=== PATIENT | male | born 1945 | race Caucasian/White ===

== ENCOUNTER 2023-01-19 08:25 | Outpatient (OUT) | payer OTHER, MEDICARE, SELFPAY ==
--- NOTE | 2023-01-19 08:29 | CT_ITS ---
[address] [address] Patient Name: DAI GONCALVES MRN: [id number] date: 1945 Sex: M Assigned Patient Location: CT Current Patient Location: Accession/Order Number: [id number] Exam Date: 01/19/2023 08:42 Report Date: 01/20/2023 06:58 At the request of: LIZZY ROCA Procedure: CT lung screening low-dose EXAMINATION: CT lung screening low-dose HISTORY: Nicotine Dependence F17.210 COMPARISON: CT chest 01/12/2022 TECHNIQUE: Axial, Coronal, and Sagittal images were created without the administration of IV contrast material. Dose reduction techniques were achieved by using automated exposure control and/or adjustment of mA and/or kV according to patient size and/or use of iterative reconstruction technique. FINDINGS: LUNGS: Stable scattered benign-appearing tiny nodules within the lungs. No new nodules or infiltrates. Minimal emphysematous changes. PLEURA: No mass, effusion, or pneumothorax. VASCULATURE: No abnormality. HARDIK: No mass or pathologic adenopathy. MEDIASTINUM: No mass or pathologic adenopathy. CARDIAC: No enlargement, pericardial thickening, or significant calcification. AORTA: No aneurysm or dissection. CHEST WALL: No mass or axillary adenopathy BONES: No bone lesion or fracture. LIMITED ABDOMEN: No suspicious findings. Limited images of the upper abdomen. OTHER: Negative. CT/CT lung screening low-dose IMPRESSION: 1. Lung-RADS 2- Benign Appearance or Behavior. Nodules with a very low likelihood of becoming a clinically active cancer due to size or lack of growth. Follow-up CT Chest in 1 year. Electronically authenticated by: CARLOS HOLLOWAY Date: 01/20/2023 06:58
== END 2023-01-19 08:26 | disposition home or self-care (01) ==
LOC: CT 08:25
PROVIDERS: PCP Internal Medicine; Visit Provider Internal Medicine
DX: F17.210 Nicotine dependence, cigarettes, uncomplicated (principal)
CPT/HCPCS: 71271

== ENCOUNTER 2023-10-10 07:03 | Outpatient (OUT) | payer OTHER, MEDICARE, SELFPAY ==
[2023-10-10 07:21] LABS: Basophils Absolute Auto 0.1 10^3/uL (0.0-0.1); Basophils Percent Auto 0.7 % (0.2-2.0); Eosinophils Absolute Auto 0.2 10^3/uL (0.0-0.7); Eosinophils Percent Auto 2.8 % (0.9-7.0); Hematocrit 40.7 % (42.0-54.0); Hemoglobin 13.6 g/dL (14.0-18.0); Immature Granulocytes Abs Auto 0.02 10^3/uL (0.00-0.03); Immature Granulocytes Pct Auto 0.3 % (0.0-0.5); Lymphocytes Absolute Auto 1.8 10^3/uL (1.2-3.8); Lymphocytes Percent Auto 25.9 % (20.5-60.0); Mean Corpuscular HGB Conc 33.4 g/dL (29.9-35.2); Mean Corpuscular Hemoglobin 32.4 pg (25.9-34.0); Mean Corpuscular Volume 96.9 fL (80.0-94.0); Monocytes Percent Auto 15.2 % (1.7-12.0); Neutrophils Absolute Auto 3.7 10^3/uL (1.4-6.5); Neutrophils Percent Auto 55.1 % (43.0-75.0); Platelet Count 320 10^3/uL (150-450); Red Cell Distribution Width 11.5 % (11.0-15.0); White Blood Count 6.8 10^3/uL (4.0-11.0)
[2023-10-10 08:11] LABS: Percent Iron Saturation 32.3 %
== END 2023-10-10 07:04 | disposition home or self-care (01) ==
LOC: LAB 07:03
PROVIDERS: PCP Internal Medicine; Visit Provider Internal Medicine
DX: D64.9 Anemia, unspecified (principal); K22.70 Barrett's esophagus without dysplasia
CPT/HCPCS: 36415; 82607; 82728; 82746; 83540; 83550; 85025

== ENCOUNTER 2024-02-21 07:48 | Outpatient (OUT) | payer OTHER, MEDICARE, SELFPAY ==
--- NOTE | 2024-02-21 07:50 | CT_ITS ---
The [address] [address] Patient Name: DAI GONCALVES MRN: [id number] date: 1945 Sex: M Assigned Patient Location: CT Current Patient Location: Accession/Order Number: [id number] Exam Date: 02/21/2024 07:55 Report Date: 02/23/2024 06:48 At the request of: LIZZY ROCA Procedure: CT lung screening low-dose EXAMINATION: CT lung screening low-dose HISTORY: Nicotine Dependence COMPARISON: CT LUNG CANCER SCREENING 01/19/2023 TECHNIQUE: Axial, Coronal, and Sagittal images were created without the administration of IV contrast material. Dose reduction techniques were achieved by using automated exposure control and/or adjustment of mA and/or kV according to patient size and/or use of iterative reconstruction technique. FINDINGS: LUNGS: Several small nodules scattered within the lungs, largest is lateral right lung base, 7 mm. No new nodules or acute infiltrates. PLEURA: No mass, effusion, or pneumothorax. VASCULATURE: No abnormality. HARDIK: No mass or pathologic adenopathy. MEDIASTINUM: No mass or pathologic adenopathy. CARDIAC: No enlargement, pericardial thickening, or pericardial effusion. Coronary Artery calcifications: Coronary calcifications are moderate. AORTA: No aneurysm or dissection. CHEST WALL: No mass or axillary adenopathy BONES: No bone lesion or fracture. LIMITED ABDOMEN: No suspicious findings. Limited images of the upper abdomen. OTHER: Negative. CT/CT lung screening low-dose IMPRESSION: 1. Lung-RADS 2- Benign Appearance or Behavior. Nodules with a very low likelihood of becoming a clinically active cancer due to size or lack of growth. Follow-up CT Chest in 1 year. Electronically authenticated by: CARLOS HOLLOWAY Date: 02/23/2024 06:48
== END 2024-02-21 07:49 | disposition home or self-care (01) ==
LOC: CT 07:48
PROVIDERS: PCP Internal Medicine; Visit Provider Internal Medicine
DX: R91.8 Other nonspecific abnormal finding of lung field (principal); F17.210 Nicotine dependence, cigarettes, uncomplicated
CPT/HCPCS: 71271

== ENCOUNTER 2024-10-29 06:30 | Outpatient (OUT) | payer OTHER, MEDICARE, SELFPAY ==
--- OUTSIDE RECORDS SUMMARY | 2024-10-29 06:32 | XMS_ITS | Clinical Summary ---
Author Organization [facility] Healthcare Address [address] [place] [address] Care Team Providers Care Director Of Casino Marketing Name Role Phone Shay Pineda DO Primary Care Provider [phone] Allergies Active Allergy Reactions Criticality Noted Date Comments Atorvastatin 01/24/2024 Other Reaction(s): UNK Medications cholecalciferol (Vitamin D-3) 125 MCG (5000 UT) capsule Daily 4 Active etodolac (Lodine) 500 MG tablet TAKE 1 TABLET BY MOUTH TWICE A DAY FOR 15 DAYS 4 Active lisinopril 40 MG tablet Daily 4 Active Glucosamine HCl 1500 MG tablet Daily 4 Active pyridoxine (B-6) 100 MG tablet Twice a Week 4 Active Turmeric 400 MG capsule Daily 4 Active niacin (Niaspan) 500 MG ER tablet Daily 4 Active POTASSIUM GLUCONATE PO Daily 4 Active ascorbic acid (Vitamin C) 500 mg/mL oral liquid 4 Active Multiple Vitamins-Minera ls (ONE A DAY MEN 50 PLUS PO) 1 tablet 4 Active milk thistle 175 MG tablet Take 175 mg by mouth Daily Active Echinacea 650 MG capsule Take by mouth Activ e Cyanocobalamin (Vitamin B 12) 100 MCG lozenge Take by mouth Active ipratropium (Atrovent) 0.06 % nasal sprayIndication s:Chronic vasomotor rhinitis Administer 2 sprays into each nostril in the morning and 2 sprays in the evening and 2 sprays before bedtime. 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 02/01/2024 Benign prostatic hyperplasia with lower urinary tract symptoms 02/01/2024 Chronic vasomotor rhinitis 02/01/2024 Anemia 04/09/2021 Encounters Date Type Department Care Team Description 09/07/2024 2:10 PM EDT Procedure Visit [facility] [address] [place] [id number] Jacobo De Los Santos DPM Capsulitis of metatarsophalangeal (MTP) joint of right foot (Primary Dx); Hallux rigidus of right foot; DJD (degenerative joint disease), ankle and foot, right; Pain due to onychomycosis of toenails of both feet 09/07/2024 Bamboo flowsheet [facility] [address] [place] [id number] Jacobo De Los Santos DPM from Last 3 Months Family History Relation Name Status Comments Father Mother Social History Tobacco Use Types Packs/Day Years Used Date Smoking Tobacco: Every Day Cigarettes Smokeless Tobacco: Never Tobacco Cessation:Ready to Q uit: Not Asked; Counseling Given: Yes Alcohol Use Standard Drinks/Week Comments Yes 1 (1 standard drink = 0.6 oz pur e alcohol) Sex and Gender Information Value Date Recorded Sex Assigned at Not on file Legal Sex Male 1:51 PM EDT Gender Identity Not on file Sexual Orientation Not on file Last Filed Vital Signs Vital Sign Reading Time Taken Comments Blood Pressure 127/80 02/01/2024 10:47 AM EST Pulse - - Temperature - - Respiratory Rate 16 09/07/2024 2:12 PM EDT Oxygen Saturation - - Inhaled Oxygen Concentration - - Weight 77.1 kg (170 lb) 09/07/2024 2:12 PM EDT Height 180.3 cm (5' 11 ) 09/07/2024 2:12 PM EDT Body Mass Index 23.71 09/07/2024 2:12 PM EDT Plan of Treatment Health Maintenance Due Date Last Done Comments Influenza Vaccine (#1) 2024 , 01/04/2023, 01/10/2022, Additional history exists Pneumococcal Vaccine: 65+ Years Completed 2, 01/25/2020 Insurance [employer] [facility] Care Teams Director Of Casino Marketing Relationship Specialty Start Date End Date Shay Pineda DO [address] [place] [address] PCP - General Internal Medicine 02/01/24
--- OUTSIDE RECORDS SUMMARY | 2024-10-29 06:34 | XMS_ITS | CCD ---
Author Organization [facility] Care Team Providers Care Plate Stacker Hand Name Role Phone SHAY PINEDA Primary Care Physician [phone] Hawa Starkey Unavailable Renee Lawrence Unavailable Shay Pineda Unavailable DO Shay Pineda Primary Care Provider MD Hawa Starkey Attending Provider CHANELLE, DR ABLL Consulting Unavailable BALL, DR BALL Primary Care Unavailable BALL, DR BALL Admitting Unavailable BALL, DR BALL Attending Unavailable BALL, DR BALL Consulting Unavailable CHANELLE, DR BALL Primary Care Unavailable BALL, DR BALL Admitting Unavailable BALL, DR BALL Attending Unavailable BALL, DR BALL Attending Unavailable BALL, DR BALL Consulting Unavailable BALL, DR BALL Primary Care Unavailable CHANELLE, DR BALL Admitting Unavailable GRECHNY ., PREMA BENJAMIN Consulting Unavailcipriano PINEDA, DR BALL Primary Care Unavailable MARKER ., DR RASCON Attending Unavailable MARKER ., DR RASCON Admitting Unavailable AHDOOT, SOPHIA Consulting Unavailable NATEHAWA Consulting Unavailable CHANELLE, DR BALL Attending Unavailable BALL, DR BALL Primary Care Unavailable BALL, DR BALL Admitting Unavailable BALL, DR BALL Consulting Unavailable ZIEBER, DR CARLOS Justice Consulting Unavailable GO, GAYLE Consulting Unavailable BALL, DR BALL Primary Care Unavailable BALL, DR BALL Admitting Unavailable BALL, DR BALL Attending Unavailable BALL, DR BALL Consulting Unavailable ZIEBER, DR CARLOS Justice Consulting Unavailable Unavailable Primary Care Provider UnavailShay Bailey MD Primary Care Provider Shay Pineda DO Primary Care Provider [phone] [facility] [place] Attending Provider Shay Pineda MD Primary Care Provider Hawa Starkey MD Attending Provider [phone] Shay Pineda DO Primary Care Provider JACOBO DE LOS SANTOS Attending Unavailable JACOBO DE LOS SANTOS Referring Unavailable JACOBO DE LOS SANTOS Attending Unavailable JACOBO DE LOS SANTOS Attending Unavailable ALEX GARCIA Attending Unavailable SHAY PINEDA [facility] Unavailable [facility] [place] Attending Unavailable Shay Pineda Primary Care Unavailable Shay Pineda Primary Care Unavailable Hawa Starkey Admitting Unavailable Hawa Starkey Attending Unavailable hSay Pineda DO Primary Care Provider Hawa Starkey MD Attending Provider Shay Pineda DO Attending Provider Allergies Allergy Classification Reported Allergen(s) Allergy Type Date of Onset Reaction(s) Facility (4 sources) atorvastatin Drug Allergy Unknown [facility] Other (1 source) HMG-CoA reductase inhibitor Drug allergy Unknown [facility] Other (9 sources) atorvastatin Drug Allergy 4 [facility] (1 source) atorvastatin Drug Allergy 5 [facility] Medications Current Medications Medication Drug Class(es) Dates Sig (Normalized) Sig (Original) acetaminophen 325 mg / oxyCODONE hydrochloride 5 mg oral tablet (1 source) Opioid Agonist Start: 02-26-2021 take 1 tablet by mouth every four hours Percocet 5-325 MG 1 tablet as needed Orally every 4 hrs for 7 days Feb, Active amLODIPine 5 mg / benazepril hydrochloride 40 mg oral capsule (1 source) Dihydropyridine Calcium Channel Cesar, Angiotensin Converting Enzyme Inhibitor Start: 10-25-2024 take 1 capsule by mouth once daily Amlodipine-Benaz epril 5-40 mg capsule Active 1 CAP PO Daily 90 90 October 25, 2024 12:00am Complies with drug therapy ascorbic acid 500 mg oral capsule (20 sources) Vitamin C Start: 11-07-2023 Ascorbic Acid (Vitamin C) 500 mg capsule Active MG PO November 07, 2023 12:00am Complies with drug therapy Start: 11-07-2023 Ascorbic Acid (Vitamin C) Active MG PO November 07, 2023 12:00am Start: 09-03-2021 Vitamin C Arsh y, Refills(s) 0, Prophylaxis Start Date: 09/03/21 Status: Ordered Start: 09-03-2021 Vitamin C Arsh y, Refills(s) 0 Start Date: 09/03/21 Status: Ordered Start: 11-17-2020 End: 05-18-2023 take 1 tablet by mouth once daily Ascorbic Acid (Vitamin C) (Vitamin C) 1,000 mg Tablet Discontinued 1000 MG PO Daily November 17, 2020 12:00am May 18, 2023 11:57am ascorbic acid (Vitamin C) 50 0 mg/mL oral liquid (9 sources) Start: 11-07-2023 ascorbic acid (Vitamin C) 500 mg/mL oral liquid 11/07/2023 Active [id number]-[id number]-Esgiklis id (Neuriva Plus Brain Performance) 1.7 mg-400 mcg- 2.4 mcg capsule (9 sources) Start: 11-07-2023 D6-Wszbh-H87-C offee-Phosphatid (Neuriva Plus Brain Performance) 1.7 mg-400 mcg- 2.4 mcg capsule Active CAP PO November 07, 2023 12:00am Complies with drug therapy Start: 11-07-2023 Q1-Qenjn-X63-C offee-Phosphatid (Neuriva Plus Brain Performance) 1.7 mg-400 mcg- 2.4 mcg capsule Active CAP PO November 06, 2023 11:00pm Start: 11-07-2023 C0-Wnvpz-G05-C offee-Phosphatid (Neuriva Plus Brain Performance) 1.7 mg-400 mcg- 2.4 mcg capsule Active CAP PO November 07, 2023 12:00am Calcium Citrate (9 sources) Citracal +D3 Act jasvir calcium citrate 1190 mg / cholecalciferol 0.005 mg oral tablet (12 sources) Vitamin D Start: 11-17-2020 take 1 tablet by mouth once daily Calcium Citrate-Vitamin D3 (Citracal Plus D) 250 mg-5 mcg (200 unit) Tablet Active 1 TAB PO Daily November 17, 2020 12:00am Complies with drug therapy cefuroxime 500 mg oral tablet (5 sources) Cephalosporin Antibacterial Start: 05-31-2024 take 1 tablet by mouth twice daily Cefuroxime Axetil 500 mg tablet Active 500 MG PO Twice daily 12 30May 31, 2024 1:00am Complies with drug therapy cephalexin 500 mg oral capsule (1 source) Cephalosporin Antibacterial Start: 02-26-2021 take 1 capsule by mouth every eight hours Cephalexin 500 MG 1 capsule Orally TID for 2 days Feb, Active cholecalciferol 0.125 mg oral capsule (20 sources) Vitamin D Start: 11-07-2023 take 1 capsule by mouth once daily Cholecalciferol (Vitamin D3) 125 mcg (5,000 unit) capsule Active 125 MCG PO Daily November 07, 2023 12:00am Complies with drug therapy Start: 11-17-2020 End: 05-18-2023 take 1 capsule by mouth once daily Cholecalciferol (Vitamin D3) (Vitamin D3) 25 mcg (1,000 unit) Capsule Discontinued 25 MCG PO Daily November 17, 2020 12:00am May 18, 2023 11:57am Prevagen Extra S trength 20 MG as directed Orally Active take 1 tablet by og th every twenty-four hours Vitamin D3 25 MCG (1000 UT) 1 tablet Orally Once a day Active Citracal Maximum + D (2 sources) Start: 09-03-2021 Citracal Maxim um + D Oral, BID, Refill(s) 0, Prophylaxis Start Date: 09/03/21 Status: Ordered Start: 09-03-2021 Citracal Maxim um + D Oral, BID, Refill(s) 0 Start Date: 09/03/21 Status: Ordered Echinacea (9 sources) Echinacea Active Echinacea 650 MG capsule (9 sources) Echinacea 650 MG capsule Take by mouth Active Echinacea Preparation (14 sources) Start: 09-03-2021 echinacea Refi lls(s) 0, Prophylaxis Start Date: 09/03/21 Status: Ordered Start: 09-03-2021 echinacea Refi lls(s) 0 Start Date: 09/03/21 Status: Ordered Start: 11-17-2020 take 1 capsule by mo uth once daily Echinacea 380 mg Capsule Active 760 MG PO Daily November 17, 2020 12:00am Complies with drug therapy Start: 11-17-2020 take 1 capsule by mo uth once daily Echinacea 380 mg Capsule Active 760 MG PO Daily November 17, 2020 12:00am Start: 11-17-2020 take 1 capsule by mo uth once daily Echinacea 380 mg Capsule Active 760 MG PO Daily November 16, 2020 11:00pm Start: 11-17-2020 take 760 mg by mouth once arsh y Echinacea Active 760 MG PO Daily November 16, 2020 11:00pm Start: 11-17-2020 take 760 mg by mouth once arsh y Echinacea Active 760 MG PO Daily November 17, 2020 12:00am ezetimibe 10 mg oral tablet (7 sources) Dietary Cholesterol Absorption Inhibitor Start: 10-25-2024 take 1 tablet by mouth once daily Ezetimibe 10 mg tablet Active 10 MG PO Daily 90 90 October 25, 2024 9:22am Complies with drug therapy Start: 07-12-2024 End: 09-04-2024 take 1 tablet by mouth once daily Ezetimibe 10 mg tablet Discontinued 10 MG PO Daily July 13, 2024 1:42pm September 04, 2024 10:27am glucosamine hydrochloride 1500 mg oral tablet (18 sources) Start: 11-07-2023 take 1 tablet by mouth once daily Glucosamine Hcl 1,500 mg tablet Active 1500 MG PO Daily November 07, 2023 12:00am administer with a meal Complies with drug therapy ipratropium bromide 0.042 mg/actuat metered dose nasal spray (20 sources) Anticholinergic Start: 02-01-2024 End: 01-31-2025 take 2 spray(s) nasal route in the morning, then take 2 spray(s) nasal route in the evening, then take 2 spray(s) nasal route at bedtime ipratropium (Atrovent) 0.06 % nasal spray Indications: Chronic vasomotor rhinitis Administer 2 sprays into each nostril in the morning and 2 sprays in the evening and 2 sprays before bedtime. 45 mL 3 02/01/2024 01/31/2025 Active Start: 02-01-2024 End: 09-04-2024 take 1 spray(s) nasal route three times daily Ipratropium [place] 21 mcg (0.03 %) spray,non-aerosol Discontinued 2 SPRAY INTRANASAL Three times daily February 01, 2024 1:00am September 04, 2024 10:27am administer into each nostril Start: 05-18-2023 End: 11-07-2023 take 2 spray(s) nasal route three times daily before mealtime Ipratropium [place] 42 mcg (0.06 %) spray,non-aerosol Discontinued INTRANASAL May 18, 2023 1:00am November 07, 2023 12:06pm Use 2 sprays in each nostril before meals nasally three times a day Start: 01-03-2023 take 2 spray(s) nasa l route before mealtime Ipratropium [place] 0.06 % 2 sprays in each nostril Nasally before meals for 30 days Dec, Active mecobalamin (8 sources) Start: 11-07-2023 Mecobalamin (V itamin B12) 500 mcg tablet,chewable Active MCG PO November 07, 2023 12:00am Start: 11-07-2023 Mecobalamin (V itamin B12) 500 mcg tablet,chewable Active MCG PO November 06, 2023 11:00pm Start: 11-07-2023 Mecobalamin (V itamin B12) Active MCG PO November 07, 2023 12:00am Milk thistle extract (20 sources) Start: 09-03-2021 milk thistle 1 75 mg, Refill(s) 0, Prophylaxis Start Date: 09/03/21 Status: Ordered Start: 09-03-2021 milk thistle R efill(s) 0 Start Date: 09/03/21 Status: Ordered Start: 11-17-2020 take 1 tablet by og th once daily Milk Thistle 175 mg Tablet Active 175 MG PO Daily November 17, 2020 12:00am Complies with drug therapy Start: 11-17-2020 take 1 tablet by og th once daily Milk Thistle 175 mg Tablet Active 175 MG PO Daily November 17, 2020 12:00am Start: 11-17-2020 take 1 tablet by og th once daily Milk Thistle 175 mg Tablet Active 175 MG PO Daily November 16, 2020 11:00pm Start: 11-17-2020 take 175 mg by mouth once arsh y Milk Thistle Active 175 MG PO Daily November 16, 2020 11:00pm Start: 11-17-2020 take 175 mg by mouth once arsh y Milk Thistle Active 175 MG PO Daily November 17, 2020 12:00am take 1 tablet by og th once daily milk thistle 175 MG tablet Take 175 mg by mouth Daily Active Milk Thistle 175 MG as directed Orally Active MSM 1000 MG (9 sources) MSM 1000 MG as d irected Orally Active Multiple Vitamins-Minerals (ONE A DAY MEN 50 PLUS PO) (9 sources) Start: 11-07-2023 take 1 tablet by mouth once daily Multiple Vitamins-Minerals (ONE A DAY MEN 50 PLUS PO) 1 tablet 11/07/2023 Active Qqkuoxiu-Fjj-Xujgm-Vit K-Lycop (3 sources) Start: 11-07-2023 take 1 tablet by mouth once daily Plyyqrjq-Wym-Wshxe-Vit K-Lycop Active 1 TAB PO Daily November 07, 2023 12:00am Lxspuhxf-Wjk-Jwntr-Vit K-Lycop 400-20-370 mcg tablet (6 sources) Start: 11-07-2023 take 1 tablet by mouth once daily Oitgzpqd-Gni-Gyzqu-Vit K-Lycop 400-20-370 mcg tablet Active 1 TAB PO Daily November 07, 2023 12:00am Complies with drug therapy Start: 11-07-2023 take 1 tablet by og th once daily Rnsxojjj-Dda-Nqfjv-Vit K-Lycop 400-20-37 0 mcg tablet Active 1 TAB PO Daily November 07, 2023 12:00am Start: 11-07-2023 take 1 tablet by og th once daily Zzyyibqw-Zfu-Rmjoh-Vit K-Lycop 400-20-37 0 mcg tablet Active 1 TAB PO Daily November 06, 2023 11:00pm Aleve (2 sources) Nonsteroidal Anti-inflammatory Drug Start: 09-03-2021 take 1 mg by mouth every twelve hours Aleve mg, Oral, q12hr, Refills(s) 0, Pain Start Date: 09/03/21 Status: Ordered Start: 09-03-2021 take 1 mg by mouth e very twelve hours Aleve mg, Oral, q12hr, Refills(s) 0 Start Date: 09/03/21 Status: Ordered 24 hr niacin 500 mg extended release oral tablet (20 sources) Nicotinic Acid Start: 11-07-2023 niacin (Niaspa n) 500 MG ER tablet Daily 11/07/2023 Active Start: 11-07-2023 take 1 tablet by og th once daily Niacin 500 mg tablet Active 500 MG PO Daily November 07, 2023 12:00am Complies with drug therapy Start: 09-03-2021 niacin Oral, R efills(s) 0 Start Date: 09/03/21 Status: Ordered Start: 11-17-2020 End: 05-18-2023 take 1 tablet by mouth once daily Niacin 500 mg Tablet Discontinued 500 MG PO Daily November 17, 2020 12:00am May 18, 2023 11:57am omeprazole 40 mg delayed release oral capsule (1 source) Proton Pump Inhibitor Start: 09-23-2021 take 1 capsule by mouth once daily omeprazole 40 mg Cap-DR 40 mg = 1 cap(s), Oral, Daily, # 30 cap(s), Refills(s) 2, Pharmacy: [facility], 180, cm, 09/23/21 11:48:00 EDT, Height/Length Dosing, 78.3, kg, 09/23/21 11:48:00 EDT, Weight Dosing Start Date: 09/23/21 Status: Ordered One Daily 50 Plus - (9 sources) One Daily 50 Plu s - as directed Orally Active Plenvu oral powder for reconstitution (1 source) Start: 09-03-2021 take 1 dose by mouth once Plenvu oral powder for reconstitution See Instructions, 1 EA, Refill(s) 0, Per physicians instruction's prior to colonoscopy Mail order pharmacy to sent to patient's home in [place]., [facility], 180, cm, 09/03/21 13:11:00 EDT, Height/Length Dosing, 78.3, kg, 09/03/21 13:11:0... Start Date: 09/03/21 Status: Ordered potassium 99 mg extended release oral tablet (9 sources) take 1 tablet by mouth once daily Potassium 99 MG 1 tablet Orally Once a day Active Potassium Acetate (2 sources) Start: 09-03-2021 potassium acet ate Refills(s) 0, Prophylaxis Start Date: 09/03/21 Status: Ordered Start: 09-03-2021 potassium acet ate Refills(s) 0 Start Date: 09/03/21 Status: Ordered Potassium gluconate (20 sources) Start: 05-18-2023 POTASSIUM GLUC SHARATH PO Daily 05/18/2023 Active Start: 11-17-2020 End: 05-18-2023 take 1 tablet by mouth once daily Potassium Gluconate 595 mg (99 mg) tablet Active 595 MG PO Daily May 18, 2023 11:44am Complies with drug therapy Prevagen (11 sources) Start: 05-18-2023 take 1 tablet by og th once daily Prevagen Active 1 TAB PO Daily May 18, 2023 11:45am Start: 05-18-2023 take 1 tablet by og th once daily Prevagen Active 1 TAB PO Daily May 18, 2023 10:45am Start: 11-17-2020 End: 05-18-2023 take 1 tablet by mouth once daily Prevagen Discontinued 1 TAB PO Daily November 17, 2020 12:00am May 18, 2023 11:59am Start: 11-17-2020 End: 05-18-2023 take 1 tablet by mouth once daily Prevagen Discontinued 1 TAB PO Daily November 16, 2020 11:00pm May 18, 2023 10:59am Start: 11-17-2020 take 1 tablet by og th once daily Prevagen Active 1 TAB PO Daily November 17, 2020 12:00am Prevagen 1 tab (12 sources) Start: 05-18-2023 take 1 tablet by og th once daily Prevagen 1 tab Active 1 TAB PO Daily May 18, 2023 11:45am Complies with drug therapy Start: 05-18-2023 take 1 tablet by og th once daily Prevagen 1 tab Active 1 TAB PO Daily May 18, 2023 11:45am Start: 05-18-2023 take 1 tablet by og th once daily Prevagen 1 tab Active 1 TAB PO Daily May 18, 2023 10:45am Start: 11-17-2020 End: 05-18-2023 take 1 tablet by mouth once daily Prevagen 1 tab Discontinued 1 TAB PO Daily November 17, 2020 12:00am May 18, 2023 11:59am Start: 11-17-2020 End: 05-18-2023 take 1 tablet by mouth once daily Prevagen 1 tab Discontinued 1 TAB PO Daily November 16, 2020 11:00pm May 18, 2023 10:59am sodium chloride 1000 mg oral tablet (14 sources) Start: 09-01-2021 sodium chlorid e 1 g Tab Refills(s) 0, Prophylaxis Start Date: 09/01/21 Status: Ordered Start: 11-26-2020 End: 05-18-2023 Sodium Chloride 1 gram Table t Discontinued 1 GM PO As Directed as needed for Cramps November 26, 2020 12:00am May 18, 2023 11:57am Tumersaid (6 sources) Tumersaid Active Turmeric extract (20 sources) Start: 05-18-2023 Turmeric 400 M G capsule Daily 05/18/2023 Active Start: 05-18-2023 take 1 capsule by mo uth once daily Turmeric 400 mg capsule Active 550 MG PO Daily May 18, 2023 11:46am Complies with drug therapy Start: 05-18-2023 take 1 capsule by mo uth once daily Turmeric 400 mg capsule Active 550 MG PO Daily May 18, 2023 11:46am Start: 05-18-2023 take 1 capsule by mo uth once daily Turmeric 400 mg capsule Active 550 MG PO Daily May 18, 2023 10:46am Start: 05-18-2023 take 550 mg by mouth once arsh y Turmeric Active 550 MG PO Daily May 18, 2023 11:46am Start: 05-18-2023 take 550 mg by mouth once arsh y Turmeric Active 550 MG PO Daily May 18, 2023 10:46am Start: 09-03-2021 take 550 mg by mouth once arsh y Turmeric 550 mg, Oral, Daily, Refill(s) 0, Prophylaxis Start Date: 09/03/21 Status: Ordered Start: 09-03-2021 take 1 mg by mouth once daily Turmeric mg, Oral, Daily, Refill(s) 0 Start Date: 09/03/21 Status: Ordered Start: 11-17-2020 End: 05-18-2023 take 1 capsule by mouth once daily Turmeric 400 mg Capsule Discontinued 550 MG PO Daily November 17, 2020 12:00am May 18, 2023 11:59am Start: 11-17-2020 End: 05-18-2023 take 1 capsule by mouth once daily Turmeric 400 mg Capsule Discontinued 550 MG PO Daily November 16, 2020 11:00pm May 18, 2023 10:59am Start: 11-17-2020 End: 05-18-2023 take 550 mg by mouth once daily Turmeric Discontinued 550 MG PO Daily November 17, 2020 12:00am May 18, 2023 11:59am Start: 11-17-2020 End: 05-18-2023 take 550 mg by mouth once daily Turmeric Discontinued 550 MG PO Daily November 16, 2020 11:00pm May 18, 2023 10:59am Start: 11-17-2020 take 550 mg by mouth once arsh y Turmeric Active 550 MG PO Daily November 17, 2020 12:00am vitamin b12 0.5 mg chewable tablet (20 sources) Vitamin B12 Start: 11-07-2023 Mecobalamin (V itamin B12) 500 mcg tablet,chewable Active MCG PO November 07, 2023 12:00am Complies with drug therapy Start: 09-03-2021 Vitamin B12 Re fills(s) 0, Prophylaxis Start Date: 09/03/21 Status: Ordered Start: 09-03-2021 Vitamin B12 Re fills(s) 0 Start Date: 09/03/21 Status: Ordered Start: 11-17-2020 End: 05-18-2023 take 1 tablet by mouth once daily Cyanocobalamin (Vitamin B-12) (Vitamin B-12) 1,000 mcg Tablet Discontinued 1000 MCG PO Daily November 17, 2020 12:00am May 18, 2023 11:57am Cyanocobalamin ( Vitamin B 12) 100 MCG lozenge Take by mouth Active Vitamin B 12 Act jasvir vitamin b6 100 mg oral tablet (20 sources) Start: 11-07-2023 take 1 tablet by mouth two times weekly Pyridoxine (Vitamin B6) 100 mg tablet Active 100 MG PO Twice a Week November 07, 2023 12:00am Complies with drug therapy Start: 09-03-2021 Vitamin B6 Mariah ly, Refills(s) 0, Prophylaxis Start Date: 09/03/21 Status: Ordered Start: 09-03-2021 Vitamin B6 Mariah ly, Refills(s) 0 Start Date: 09/03/21 Status: Ordered Start: 11-17-2020 End: 05-18-2023 Pyridoxine (Vitamin B6) (Vit jasso B-6) 500 mg Tablet Discontinued 1000 MG PO Daily November 17, 2020 12:00am May 18, 2023 11:57am Vitamin B6 Activ e Vitamin C 1000 MG (7 sources) take 1 tablet by mouth once arsh y Vitamin C 1000 MG 1 tablet Orally Once a day Active Vitamin D3 1000 intl units oral tablet (2 sources) Start: 09-03-2021 take 1 tablet by mouth once daily Vitamin D3 1000 intl units oral tablet 25 mcg = 1 tab(s), Oral, Daily, # 30 tab(s), Refills(s) 0, Prophylaxis Start Date: 09/03/21 Status: Ordered Start: 09-03-2021 take 1 tablet by og th once daily Vitamin D3 1000 intl units oral tablet 25 mcg = 1 tab(s), Oral, Daily, # 30 tab(s), Refills(s) 0 Start Date: 09/03/21 Status: Ordered Vitamin D3 25 MCG (1000 UT) (5 sources) take 1 tablet by mouth once arsh y take 1 tablet by mouth once arsh y Vitamin D3 25 MCG (1000 UT) 1 tablet Orally Once a day Active Completed/Discontinued Medications Medication Drug Class(es) Dates Sig (Normalized) Sig (Original) aspirin 81 mg oral tablet (20 sources) Platelet Aggregation Inhibitor, Nonsteroidal Anti-inflammatory Drug Start: 11-17-2020 End: 11-07-2023 Aspirin 81 mg Capsule Discontinued 81 MG PO Daily November 17, 2020 12:00am November 07, 2023 12:06pm Instructed to stop 7 days prior to surgery take 1 tablet by mouth once arsh y Aspirin 81 81 MG 1 tablet Orally Once a day Active azithromycin 250 mg oral tablet (6 sources) Macrolide Antimicrobial Start: 05-15-2024 End: 05-15-2024 Azithromycin 250 mg tablet Discontinued 250 MG PO .COMPLEX 6 May 15, 2024 1:00am May 15, 2024 10:23am 2 tabs on first day followed by 1 tab on days 2-5 etodolac 500 mg oral tablet (19 sources) Nonsteroidal Anti-inflammatory Drug Start: 05-19-2023 End: 08-05-2023 take 1 tablet by mouth twice daily Etodolac 500 mg tablet Discontinued 500 MG PO Twice daily 30 May 19, 2023 1:00am August 05, 2023 9:04am Lidocaine (1 source) Antiarrhythmic, Amide Local Anesthetic Start: 09-02-2022 Lidocaine Aug, 20 mg lisinopril 40 mg oral tablet (20 sources) Angiotensin Converting Enzyme Inhibitor Start: 11-17-2020 End: 10-25-2024 take 1 tablet by mouth once daily Lisinopril 40 mg tablet Discontinued 40 MG PO Daily May 18, 2023 11:42am March 02, 2024 1:37pm meloxicam 7.5 mg oral tablet (20 sources) Nonsteroidal Anti-inflammatory Drug Start: 05-18-2023 End: 05-19-2023 take 1 tablet by mouth once daily as needed for pain Meloxicam 7.5 mg tablet Discontinued 7.5 MG PO Daily as needed for Pain May 18, 2023 11:43am May 19, 2023 12:21pm Start: 11-17-2020 End: 05-18-2023 take 1 tablet by mouth twice daily for pain Meloxicam 7.5 mg tablet Discontinued 7.5 MG PO Twice daily as needed for Pain November 17, 2020 12:00am May 18, 2023 11:59am Instructed to stop 7 days before surgery take 1 tablet by og th every twenty-four hours Meloxicam 7.5 MG 1 tablet Orally Once a day Active methylsulfonylmethane 1000 mg oral tablet (12 sources) Start: 11-17-2020 End: 11-07-2023 take 1 tablet by mouth once daily Methylsulfonylmethane (Msm) 1,000 mg Tablet Discontinued 1000 MG PO Daily November 17, 2020 12:00am November 07, 2023 12:07pm Multivitamin (One A Day) Tablet (12 sources) Start: 11-17-2020 End: 05-18-2023 take 1 tablet by mouth once daily Multivitamin (One A Day) Tablet Discontinued 1 TAB PO Daily November 17, 2020 12:00am May 18, 2023 11:57am Start: 11-17-2020 End: 05-18-2023 take 1 tablet by mouth once daily Multivitamin (One A Day) Tablet Discontinued 1 TAB PO Daily November 16, 2020 11:00pm May 18, 2023 10:57am Start: 11-17-2020 take 1 tablet by og th once daily Multivitamin (One A Day) Tablet Active 1 TAB PO Daily November 17, 2020 12:00am triamcinolone acetonide 40 mg/ml injectable suspension (7 sources) Corticosteroid Start: 05-27-2022 Kenalog-40 Aug, 40 mg Problems Active Problems Problem Classification Problem Date Documented Date Episodic/Chronic Acquired foot deformities (5 sources) Toe joint rigid; 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, right foot] 06-27-2024 Chronic Acquired foot deformities (2 sources) Acquired deformity of toe of right foot; Translations: [Acquired deformities of toe(s), unspecified, right foot] 06-27-2024 Episodic Acute bronchitis (2 sources) Acute bronchitis due to other specified organisms; Translations: [Acute bronchitis] 05-15-2024 Episodic Anxiety disorders (8 sources) Panic attack; Translations: [Panic disorder [episodic paroxysmal anxiety]] Onset: 2 Chronic Chronic obstructive pulmonary disease and bronchiectasis (20 sources) Mucopurulent chronic bronchitis; Translations: [Mucopurulent chronic bronchitis] Chronic Deficiency and other anemia (20 sources) Anemia; Translations: [Anemia, unspecified] Onset: 2 Episodic Disorders of lipid metabolism (20 sources) Familial hypercholesterolemia; Translations: [Familial hypercholesterolemia] Onset: 1 09-01-2021 Chronic Esophageal disorders (20 sources) Basilio's esophagus; Translations: [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] Onset: 4 Chronic Essential hypertension (20 sources) Essential hypertension; Translations: [Essential (primary) hypertension] Onset: 1 09-01-2021 Chronic Genitourinary symptoms and ill-defined conditions (4 sources) Nocturia; Translations: [Nocturia] Episodic Headache; including migraine (4 sources) Headache; including migraine; Translations: [HEADACHE UNSPECIFIED] Onset: 2 Hyperplasia of prostate (20 sources) Nocturia due to benign prostatic hypertrophy; Translations: [Benign prostatic hyperplasia with lower urinary tract symptoms] Onset: 4 09-01-2021 Chronic Mycoses (3 sources) Pain in toe; Translations: [Tinea unguium] 06-27-2024 Episodic Osteoarthritis (20 sources) Osteoarthritis of acromioclavicular joint; Translations: [Primary osteoarthritis, unspecified shoulder] Onset: 1 Resolved: 2 Chronic Other aftercare (1 source) Other documentation liaison (current) drug therapy Episodic Other and unspecified benign neoplasm (3 sources) Adenomatous polyp of colon ; Translations: [Benign neoplasm of descending colon] Episodic Other and unspecified benign neoplasm (16 sources) Tubular adenoma of colon; Translations: [Benign neoplasm of colon, unspecified] 05-18-2023 Episodic Other and unspecified benign neoplasm (4 sources) Benign neoplasm of colon, unspecified; Translations: [Benign neoplasm of colon] Episodic Other connective tissue disease (20 sources) Supraspinatus tear; Translations: [Unspecified rotator cuff tear or rupture of right shoulder, not specified as traumatic] 06-01-2023 Episodic Other connective tissue disease (7 sources) Unspecified rotator cuff tear or rupture of right shoulder, not specified as traumatic; Translations: [Supraspinatus (muscle) (tendon) sprain] Onset: 1 Resolved: 2 Episodic Other connective tissue disease (3 sources) Ganglion cyst; Translations: [Ganglion, unspecified site] Episodic Other connective tissue disease (5 sources) Other enthesopathies, not elsewhere classified; Translations: [Disorders of bursae and tendons in shoulder region, unspecified] Onset: 5 Episodic Other connective tissue disease (11 sources) Tendonitis of right shoulder; Translations: [Other enthesopathies, not elsewhere classified] 06-01-2023 Episodic Other connective tissue disease (6 sources) Inflammation of rotator cuff tendon; Translations: [Other shoulder lesions, unspecified shoulder] 03-07-2024 Episodic Other connective tissue disease (5 sources) Other shoulder lesions, unspecified shoulder; Translations: [Disorders of bursae and tendons in shoulder region, unspecified] 03-07-2024 Episodic Other connective tissue disease (5 sources) Capsulitis of metatarsophalangeal joint of right foot; Translations: [Other enthesopathy of right foot and ankle] 06-27-2024 Episodic Other endocrine disorders (4 sources) Syndrome of inappropriate vasopressin secretion; 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 Other endocrine disorders (1 source) 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 Other lower respiratory disease (18 sources) Multiple nodules of lung; Translations: [Other nonspecific abnormal finding of lung field] 09-01-2021 Episodic Comment on above: Serial LDCT complete d:No suspicious nodules: 12/2021, 12/2022, 01/2024 Other lower respiratory disease (4 sources) Other nonspecific abnormal finding of lung field; Translations: [Other nonspecific abnormal finding of lung field] Episodic Other nervous system disorders (3 sources) Chronic pain; Translations: [Other chronic pain] Chronic Other non-traumatic joint disorders (20 sources) Pain in right shoulder; Translations: [Right shoulder pain] Onset: 1 Resolved: 2 Episodic Other non-traumatic joint disorders (1 source) Shoulder pain; Translations: [Pain in right shoulder] 03-05-2021 Episodic Other screening for suspected conditions (not mental disorders or infectious disease) (6 sources) Encounter for screening for malignant neoplasm of prostate; Translations: [Screening for malignant neoplasms of prostate] Episodic Comment on above: PSA: 1.06/2024 Other upper respiratory disease (19 sources) Vasomotor rhinitis; Translations: [Vasomotor rhinitis] Onset: 4 01-24-2024 Chronic Other upper respiratory disease (2 sources) Vasomotor rhinitis; Translations: [Allergic rhinitis, cause unspecified] Chronic Other upper respiratory disease (7 sources) Hypertrophy of nasal turbinates; Translations: [Hypertrophy of nasal turbinates] 01-24-2024 Episodic Other upper respiratory disease (1 source) Hypertrophy of nasal turbinates; Translations: [Hypertrophy of nasal turbinates] 01-24-2024 Episodic Residual codes; unclassified (3 sources) Other specified postprocedural states Onset: 2 Resolved: 2 Episodic Residual codes; unclassified (3 sources) Memory impairment; Translations: [Other amnesia] Episodic Substance-related disorders (20 sources) Smoker; Translations: [Nicotine dependence] Onset: 2 09-01-2021 Chronic Syncope (12 sources) Near syncope; Translations: [Syncope and collapse] 03-05-2021 Episodic Comment on above: Problem List clean-u p per request of Phys. 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] Onset: 03-04-2022 Episodic Other injuries and conditions due to external causes (1 source) Other adverse effects, not elsewhere classified, initial encounter; Translations: [OTH ADVERSE EFFECTS NEC INITIAL ENC] Onset: 03-04-2022 Episodic Residual codes; unclassified (1 source) Other amnesia; Translations: [OTHER AMNESIA] Onset: 03-04-2022 Episodic Residual codes; unclassified (1 source) Altered mental status, unspecified; Translations: [ALTERED MENTAL STATUS UNSPECIFIED] Onset: 03-04-2022 Episodic Residual codes; unclassified (1 source) Hallucinations, unspecified; Translations: [HALLUCINATIONS UNSPECIFIED] Onset: 03-04-2022 Episodic Results Test Name Value Interpretation Reference Range Facility X-ray reportOrdered By: Stewart Cuenca on 09-04-2024 Study report [facility] [address] [place] [address] XRay Report Signed Patient: Dai العلي MR#: [id number] : 1945 Acct:[id number] Age/Sex: 79 / M ADM Date: 5 [place] [facility] [place]: Type: [facility] Attending Dr: Hawa Starkey MD Copies to: Hawa Starkey MD~ Ordering Provider: Hawa Starkey MD Date of Service: 09/04/24 XR/XR shoulder RT min 2V*: M77.8 - Other enthesopathies, not elsewhere classified RIGHT SHOULDER - - 4 views CLINICAL HISTORY: Chronic right shoulder pain. COMPARISON: Right shoulder 06/24/2022 FINDINGS: Mild degenerative changes involving the AC and glenohumeral joints with narrowing of the subacromial space similar to the prior study. No acute bony process. XR/XR shoulder RT min 2V* IMPRESSION: MILD DEGENERATIVE CHANGES OF THE RIGHT SHOULDER WITHOUT ACUTE BONY PROCESS. Impression dictated by: Bal Cuenca Jr., D.O. 09/04/2024 12:31 PM Dictation Location: [place] [address] Transcribed By: MENA 09/04/24 1231 Dictated By: Bla Cuenca Jr, DO 09/04/24 1230 Signed By: 09/04/24 1231 [facility] XR shoulder RT min 2V*on XR shoulder RT min 2V* [facility] [address] [place] [address] XRay Report Signed Patient: Dai العلي MR#: [id number] : 1945 Acct:[id number] Age/Sex: 79 / M ADM Date: 09/04/24 [place] [facility]: Type: [facility] Attending Dr: Hawa Starkey MD Copies to: Hawa Starkey MD Ordering Provider: Hawa Starkey MD Date of Service: 09/04/24 XR/XR shoulder RT min 2V*: M77.8 - Other enthesopathies, not elsewhere classified RIGHT SHOULDER - - 4 views CLINICAL HISTORY: Chronic right shoulder pain. COMPARISON: Right shoulder 06/24/2022 FINDINGS: Mild degenerative changes involving the AC and glenohumeral joints with narrowing of the subacromial space similar to the prior study. No acute bony process. XR/XR shoulder RT min 2V* IMPRESSION: MILD DEGENERATIVE CHANGES OF THE RIGHT SHOULDER WITHOUT ACUTE BONY PROCESS. Impression dictated by: Bal Cuenca Jr., D.ONaeem 09/04/2024 12:31 PM Dictation Location: [place] [address] Transcribed By: [facility] 09/04/24 1231 Dictated By: Bal Cuenca Jr, DO 09/04/24 1230 Signed By: 09/04/24 1231 Normal [facility] A1C with Estimated Average G [facility] 07-03-2024 Glucose [Mass/Vol] 105 mg/dL Normal [facility] Comment on above: Result Comment: PERF ORMED BY: [facility] [address] [place] [address] PATHOLOGIST COOKER HELPER FRACISCO ESPINZOA M.D. Performed By: #### A 1C WT eA, [facility] CBC, LIPID, EMP PSA, CMP #### [facility] [address] [place] [id number] [facility] HbA1c (Bld) [Mass fraction] 5.3 % Normal 4.3-5.6 [facility] Comment on above: Result Comment: Incr eased risk for diabetes: 5.7 - 6.4 diabetes: >6.4 glycemic control for adults with diabetes: <7.0 Performed By: #### A 1C WT eA, [facility] CBC, LIPID, EMP PSA, CMP #### [facility] [place] [address] Alanine aminotransferase [En zymatic activity/volume] in Serum or PlasmaOrdered By: Phil Pierre on 07-03-2024 ALT [Catalytic activity/Vol] Alanine aminotransferase [Enzymatic activity/volume] in Serum or Plasma 7-52 [facility] Albumin [Mass/volume] in Ser um or Plasma by Bromocresol green (BCG) dye binding methoOrdered By: Phil Pierre on 07-03-2024 Albumin BCG dye [Mass/Vol] Albumin [Mass/volume] in Serum or Plasma by Bromocresol green (BCG) dye binding metho 3.5-5.7 [facility] Alkaline phosphatase [Enzyma tic activity/volume] in Serum or PlasmaOrdered By: Phil Pierre on 07-03-2024 ALP [Catalytic activity/Vol] Alkaline phosphatase [Enzymatic activity/volume] in Serum or Plasma 34-104 [facility] Aspartate aminotransferase [ Enzymatic activity/volume] in Serum or PlasmaOrdered By: Phil Pierre on 07-03-2024 AST [Catalytic activity/Vol] Aspartate aminotransferase [Enzymatic activity/volume] in Serum or Plasma 13-39 [facility] Basophils Auto (Bld) [#/Vol] Ordered By: Phil Pierre on 07-03-2024 Basophils (Bld) [#/Vol] Automated basoph il count 0.0-0.2 [facility] Basophils/100 WBC Auto (Bld) Ordered By: Phil Pierre on 07-03-2024 Basophils/100 WBC (Bld) Automated basophil % . [facility] Bilirubin.total [Mass/volume ] in Serum or PlasmaOrdered By: Phil Pierre on 07-03-2024 Bilirubin [Mass/Vol] Bilirubin.total [Mass/volume] in Serum or Plasma 0.3-1.0 [facility] Blood estimated average gluc ose determination by estimation from glycated hemoglobinOrdered By: Phil Pierre on 07-03-2024 Average glucose Estimated from glycated hemoglobin (Bld) [Mass/Vol] Glucose mean value [Mass/volume] in Blood Estimated from glycated hemoglobin [facility] Calcium [Mass/volume] in Ser um or PlasmaOrdered By: Phil Pierre on 07-03-2024 Calcium [Mass/Vol] Calcium [Mass/volume ] in Serum or Plasma High 8.6-10.3 [facility] Carbon dioxide, total [Moles /volume] in Serum or PlasmaOrdered By: Phil Pierre on 07-03-2024 CO2 [Moles/Vol] Carbon dioxide, tota l [Moles/volume] in Serum or Plasma 21.0-31.0 [facility] Chloride [Moles/volume] in S loretta or PlasmaOrdered By: Phil Pierre on 07-03-2024 Chloride [Moles/Vol] Chloride [Moles/vol ume] in Serum or Plasma Low 98-107 [facility] Cholesterol [Mass/volume] in Serum or PlasmaOrdered By: Phil Pierre on 07-03-2024 Cholesterol [Mass/Vol] Cholesterol [Mass/volume] in Serum or Plasma High 140-200 [facility] Comment on above: Chol less than 200 m g/dl low riskChol 201-239 mg/dl borderline riskChol 240 mg/dl and greater high risk Cholesterol in HDL [Mass/vol ume] in Serum or PlasmaOrdered By: Phil Pierre on 07-03-2024 Cholesterol in HDL [Mass/Vol] Serum or plasma high density lipoprotein (HDL) cholesterol measurement 23-92 [facility] Comment on above: HDL CHOL ATP-III CLA SSIFICATION Cardiovascular RiskHDL > or equal to 60 mg/dL LOWHDL < 40 mg/dL HIGH Cholesterol in LDL Calc [Mas s/Vol]Ordered By: Phil Pierre on 07-03-2024 Cholesterol in LDL [Mass/Vol] Cholesterol in LDL [Mass/volume] in Serum or Plasma by calculation High 0-100 [facility] Comment on above: LDL ATP III CLASSIFI CATIONLDL less than 100 mg/dL OptimalLDL 100-129 mg/dL Near or above optimalLDL 130-159 mg/dL Borderline highLDL 160-189 mg/dL HighLDL greater than 189 mg/dL Very high Cholesterol in VLDL Calc [Ma ss/Vol]Ordered By: Phil Pierre on 07-03-2024 Cholesterol in VLDL [Mass/Vol] Cholesterol in VLDL [Mass/volume] in Serum or Plasma by calculation [facility] Complete Blood Count no refl exon 07-03-2024 Basophils (Bld) [#/Vol] 0.1 10*3/uL Normal 0.0-0.2 [facility] Comment on above: Result Comment: PERF ORMED BY: [place] [address] PATHOLOGIST [employer]OOK[employer] HELPER FRACISCO ESPINOZA M.D. Performed By: #### A [address]C [facility] eA, [facility] CBC, LIPID, EMP PSA, CMP #### [address] Basophils/100 WBC (Bld) 1.2 % Normal . [facility] Comment on above: Performed By: #### A [address] eA, [facility] CBC, LIPID, EMP PSA, CMP #### [facility] [place] [address] [place] [address] [place] Eosinophils (Bld) [#/Vol] 0.2 10*3/uL Normal 0.0-0.45 [facility] Comment on above: Performed By: #### A [address] [facility] eA, [facility] CBC, LIPID, EMP PSA, CMP #### [place] [address] [place] Eosinophils/100 WBC (Bld) 3.7 % Normal . [facility] Comment on above: Performed By: #### A [address] [facility] eA, [facility] CBC, LIPID, EMP PSA, CMP #### [facility] [place] [address] [place] [address] [place] Erythrocyte distribution width (RBC) [Ratio] 12.5 % Normal 12.0-14.8 [facility] Comment on above: Performed By: #### A [address] [facility] eA, [facility] CBC, LIPID, EMP PSA, CMP #### [address] Hematocrit (Bld) [Volume fraction] 41.7 % Normal 38.8-50.0 [facility] Comment on above: Performed By: #### A [address] [facility] eA, [facility] CBC, LIPID, EMP PSA, CMP #### [address] Hemoglobin (Bld) [Mass/Vol] 14.2 g/dL Normal 13.0-17.0 [facility] Comment on above: Performed By: #### A [address] [facility] eA, [facility] CBC, LIPID, EMP PSA, CMP #### [address] Lymphocytes (Bld) [#/Vol] 1.8 10*3/uL Normal 1.00-4.8 [facility] Comment on above: Performed By: #### A [facility] eA, [facility] CBC, LIPID, EMP PSA, CMP #### [address] Lymphocytes/100 WBC (Bld) 31.5 % Normal . [facility] Comment on above: Performed By: #### A [facility] eA, [facility] CBC, LIPID, EMP PSA, CMP #### [address] MCH (RBC) [Entitic mass] 33.1 pg Normal 27.5-35.2 [facility] Comment on above: Performed By: #### A [address] eA, [facility] CBC, LIPID, EMP PSA, CMP #### [address] MCV (RBC) [Entitic vol] 97.1 fL Normal 83.5-101 [facility] Comment on above: Performed By: #### A [address] eA, [facility] CBC, LIPID, EMP PSA, CMP #### [address] Mean Corpuscular HGB Conc 34.1 g/dL Normal 32.5-35.6 [facility] Comment on above: Performed By: #### A [address] [facility] eA, [facility] CBC, LIPID, EMP PSA, CMP #### [address] Monocytes (Bld) [#/Vol] 1.0 10*3/uL High 0.0-0.8 [facility] Comment on above: Performed By: #### A [address] eA, [facility] CBC, LIPID, EMP PSA, CMP #### [address] Monocytes/100 WBC (Bld) 17.4 % Normal . [facility] Comment on above: Performed By: #### A [facility] eA, [facility] CBC, LIPID, EMP PSA, CMP #### [address] Neutrophils (Bld) [#/Vol] 2.7 10*3/uL Normal 1.8-7.7 [facility] Comment on above: Performed By: #### A [address] eA, [facility] CBC, LIPID, EMP PSA, CMP #### [address] Neutrophils/100 WBC (Bld) 46.2 % Normal . [facility] Comment on above: Performed By: #### A [address] [facility] eA, [facility] CBC, LIPID, EMP PSA, CMP #### [address] NRBC% 0.2 /100{WBC} Normal 0-0.5 [facility] Comment on above: Performed By: #### A [address] eA, [facility] CBC, LIPID, EMP PSA, CMP #### [address] Platelet mean volume (Bld) [Entitic vol] 8.0 fL Normal 6.6-10.1 [facility] Comment on above: Performed By: #### A [address] eA, [facility] CBC, LIPID, EMP PSA, CMP #### [address] Platelets (Bld) [#/Vol] 310 10*3/uL Normal 150-450 [facility] Comment on above: Performed By: #### A 1C WT eA, [facility] CBC, LIPID, EMP PSA, CMP #### [place] [address] [place] RBC (Bld) [#/Vol] 4.29 10*6/uL Normal 3.90-5.60 [facility] Comment on above: Performed By: #### A 1C WT eA, [facility] CBC, LIPID, EMP PSA, CMP #### [address] WBC (Bld) [#/Vol] 5.8 10*3/uL Normal 4.1-10.5 [facility] Comment on above: Performed By: #### A 1C WT eA, [facility] CBC, LIPID, EMP PSA, CMP #### [address] Comprehensive Metabolic Pane naomi 07-03-2024 Albumin [Mass/Vol] 4.8 g/dL Normal 3.5-5.7 [facility] Comment on above: Performed By: #### A 1C WT eA, [facility] CBC, LIPID, EMP PSA, CMP #### [address] Albumin/Globulin [Mass ratio] 1.7 {ratio} Normal [facility] Comment on above: Performed By: #### A 1C WT eA, [facility] CBC, LIPID, EMP PSA, CMP #### [address] ALP [Catalytic activity/Vol] 78 U/L Normal 34-104 [facility] Comment on above: Performed By: #### A 1C WT eA, [facility] CBC, LIPID, EMP PSA, CMP #### [address] ALT [Catalytic activity/Vol] 28 U/L Normal 7-52 [facility] Comment on above: Performed By: #### A 1C WT eA, [facility] CBC, LIPID, EMP PSA, CMP #### [address] Anion gap [Moles/Vol] 13.5 mmol/L Normal 6.0-15.0 [facility] e [facility] Comment on above: Performed By: #### A 1C WT eA, [facility] CBC, LIPID, EMP PSA, CMP #### [address] AST [Catalytic activity/Vol] 30 U/L Normal 13-39 [facility] Comment on above: Performed By: #### A 1C [facility] eA, [facility] CBC, LIPID, EMP PSA, CMP #### [address] Bilirubin [Mass/Vol] 0.8 mg/dL Normal 0.3-1.0 [facility] Comment on above: Performed By: #### A 1C WT eA, [facility] CBC, LIPID, EMP PSA, CMP #### [address] Calcium [Mass/Vol] 10.5 mg/dL High 8.6-10.3 [facility] Comment on above: Performed By: #### A 1C WT eA, [facility] CBC, LIPID, EMP PSA, CMP #### [address] Chloride [Moles/Vol] 96 mmol/L Low 98-107 [facility] Comment on above: Performed By: #### A 1C WT eA, [facility] CBC, LIPID, EMP PSA, CMP #### [address] CO2 [Moles/Vol] 28.6 mmol/L Normal 21.0-31.0 [facility] Comment on above: Performed By: #### A 1C WT eA, [facility] CBC, LIPID, EMP PSA, CMP #### [address] Creatinine [Mass/Vol] 0.98 mg/dL Normal 0.70-1.30 [facility] Comment on above: Performed By: #### A 1C WT eA, [facility] CBC, LIPID, EMP PSA, CMP #### [place] [address] [place] GFR/1.73 sq M.predicted MDRD (S/P/Bld) [Vol rate/Area] mL/min/{1.73_m2} Normal [facility] Comment on above: Performed By: #### A 1C [facility] eA, [facility] CBC, LIPID, EMP PSA, CMP #### [facility] [address] Globulin (S) [Mass/Vol] 2.9 g/dL Normal T he [facility] Comment on above: Performed By: #### A 1C [facility] eA, [facility] CBC, LIPID, EMP PSA, CMP #### [facility] [place] [address] Glucose [Mass/Vol] 106 mg/dL High 70-100 [facility] Comment on above: Result Comment: [facility] Glucose Reference Range is dependent on time and content of last meal. Glucose of more than 200 mg/dL in a nonstressed, ambulatory subject supports the diagnosis of Diabetes Mellitus. ADA recommended reference range Performed By: #### A 1C [facility] eA, [facility] CBC, LIPID, EMP PSA, CMP #### [facility] [place] [address] Potassium [Moles/Vol] 4.1 mmol/L Normal 3.5-5.1 [facility] Comment on above: Performed By: #### A 1C [facility] eA, [facility] CBC, LIPID, EMP PSA, CMP #### [facility] [place] [address] [place] [address] [place] Protein [Mass/Vol] 7.7 g/dL Normal 6.4-8.9 [facility] Comment on above: Performed By: #### A 1C [facility] eA, [facility] CBC, LIPID, EMP PSA, CMP #### [facility] [place] [address] [place] [address] [place] Sodium [Moles/Vol] 134 mmol/L Low 136-145 [facility] Comment on above: Performed By: #### A 1C [facility] eA, [facility] CBC, LIPID, EMP PSA, CMP #### [facility] [address] [place] [address] [place] Urea nitrogen [Mass/Vol] 15 mg/dL Normal 7-25 [facility] Comment on above: Performed By: #### A 1C [facility] eA, [facility] CBC, LIPID, EMP PSA, CMP #### [facility] [place] [address] [place] [address] [place] Creatinine [Mass/volume] in Serum or PlasmaOrdered By: Phil Pierre on 07-03-2024 Creatinine [Mass/Vol] Creatinine [Mass/volume] in Serum or Plasma 0.70-1.30 [facility] Employee PSA Totalon 025 PSA Total ([facility] Health Orders) 1.120 ng/mL Normal 0.000-4.000 [facility] Comment on above: Result Comment: Seri al tumor marker results determined by assays using different manufacturers or methods may not be comparable. [facility] caramel cutter helper and method: [employer], CHEMILUMINESCENT IMMUNOASSAY. PERFORMED BY: [place] [address] PATHOLOGIST COOKER HELPER FRACISCO ESPINOZA M.D. Performed By: #### A 1C WT eA, [facility] CBC, LIPID, EMP PSA, CMP #### [address] Eosinophils Auto (Bld) [#/Vo l]Ordered By: Phil Pierre on 07-03-2024 Eosinophils (Bld) [#/Vol] Automated eosinophil count 0.0-0.45 [facility] Eosinophils/100 WBC Auto (Bl d)Ordered By: Phil Pierre on 07-03-2024 Eosinophils/100 WBC (Bld) Automated eosinophil % . [facility] Erythrocyte distribution wid th Auto (RBC) [Ratio]Ordered By: Phil Pierre on 07-03-2024 Erythrocyte distribution width (RBC) [Ratio] Erythrocyte distribution width [Ratio] by Automated count 12.0-14.8 [facility] Globulin Calc (S) [Mass/Vol] Ordered By: Phil Pierre on 07-03-2024 Globulin (S) [Mass/Vol] Serum globulin measurement by calculation (mass/volume) [facility] Glucose [Mass/volume] in Ser um or PlasmaOrdered By: Phil Pierre on 07-03-2024 Glucose [Mass/Vol] Glucose [Mass/volume ] in Serum or Plasma High 70-100 [facility] Comment on above: ADA recommended refe rence rangeRandom Glucose Reference Range is dependent on time and content of last meal. Glucose of more than 200 mg/dL in a nonstressed, ambulatory subject supports the diagnosis of Diabetes Mellitus. Hematocrit Auto (Bld) [Volum e fraction]Ordered By: Phil Pierre on 07-03-2024 Hematocrit (Bld) [Volume fraction] Hematocrit [Volume Fraction] of Blood by Automated count 38.8-50.0 [facility] Hemoglobin A1c/Hemoglobin.to keiry in BloodOrdered By: Phil Pierre on 07-03-2024 HbA1c (Bld) [Mass fraction] Hemoglobin A1c percentage 4.3-5.6 [facility] Comment on above: Increased risk for d iabetes: 5.7 - 6.4diabetes: >6.4glycemic control for adults with diabetes: <7.0 Hemoglobin [Mass/volume] in BloodOrdered By: Phil Pierre on 07-03-2024 Hemoglobin (Bld) [Mass/Vol] Hemoglobin [Mass/volume] in Blood 13.0-17.0 [facility] Leukocytes [#/volume] correc jabier for nucleated erythrocytes in Blood by Automated counOrdered By: Phil Pierre on 07-03-2024 WBC corrected for nucl RBC Auto (Bld) [#/Vol] Leukocytes [#/volume] corrected for nucleated erythrocytes in Blood by Automated coun 4.1-10.5 [facility] Lipid Panelon 07-03-2024 Cholesterol [Mass/Vol] 301 mg/dL High 140-200 [facility] Comment on above: Result Comment: Chol less than 200 mg/dl low risk Chol 201-239 mg/dl borderline risk Chol 240 mg/dl and greater high risk Performed By: #### A 1C WT eA, CHC CBC, LIPID, EMP PSA, CMP #### [facility] [address] [id number] [place] Cholesterol in HDL [Mass/Vol] 65 mg/dL Normal 23-92 [facility] Comment on above: Result Comment: HDL CHOL ATP-III CLASSIFICATION Cardiovascular Risk HDL > or equal to 60 mg/dL LOW HDL < 40 mg/dL HIGH Performed By: #### A 1C WT eA, CHC CBC, LIPID, EMP PSA, CMP #### [facility] [address] [place] [address] [facility] [place] Cholesterol.total/Eula sterol in HDL [Mass ratio] 4.6 {ratio} Normal <5.0 [facility] Comment on above: Result Comment: PERF ORMED BY: [place] [address] PATHOLOGIST COOKER HELPER FRACISCO ESPINOZA M.D. Performed By: #### A [address] [facility] [place], [facility] CBC, LIPID, EMP PSA, CMP #### [address] LDL Cholesterol,Calculated 204 mg/dL High 0-100 [facility] Comment on above: Result Comment: LDL ATP III CLASSIFICATION LDL less than 100 mg/dL Optimal LDL 100-129 mg/dL Near or above optimal LDL 130-159 mg/dL Borderline high LDL 160-189 mg/dL High LDL greater than 189 mg/dL Very high Performed By: #### A [address] [facility] [place], [facility] CBC, LIPID, EMP PSA, CMP #### [address] Triglyceride w/Reflex 160 mg/dL High 0-149 [facility] Comment on above: Result Comment: TRIG ATP III CLASSIFICATION TRIG less than 150 mg/dL Normal TRIG 150-199 mg/dL Borderline high TRIG 200-500 mg/dL High TRIG greater than 500 mg/dL Very high Standard traceable to the Center for Disease Conrtrol and Prevention (CDC) test method. Performed By: #### A [address] [facility] [place], [facility] CBC, LIPID, EMP PSA, CMP #### [address] VLDL CHOLESTEROL 32 mg/dL Normal [facility] Comment on above: Performed By: #### A [address] [facility] [place], [facility] CBC, LIPID, EMP PSA, CMP #### [place] [address] [place] Lymphocytes Auto (Bld) [#/Vo l]Ordered By: Phil Pierre on 07-03-2024 Lymphocytes (Bld) [#/Vol] Lymphocytes [#/volume] in Blood by Automated count 1.00-4.8 [facility] Lymphocytes/100 WBC Auto (Bl d)Ordered By: Phil Pierre on 07-03-2024 Lymphocytes/100 WBC (Bld) Lymphocytes/100 leukocytes in Blood by Automated count . [facility] MCH Auto (RBC) [Entitic mass ]Ordered By: Phil Pierre on 07-03-2024 MCH (RBC) [Entitic mass] MCH [Entitic mass] by Automated count 27.5-35.2 [facility] MCHC Auto (RBC) [Mass/Vol]Or dered By: Phil Pierre on 07-03-2024 MCHC (RBC) [Mass/Vol] MCHC [Mass/volume] by Automated count 32.5-35.6 [facility] MCV Auto (RBC) [Entitic vol] Ordered By: Phil Pierre on 07-03-2024 MCV (RBC) [Entitic vol] MCV [Entitic vol ume] by Automated count 83.5-101 [facility] Monocytes Auto (Bld) [#/Vol] Ordered By: Phil Pierre on 07-03-2024 Monocytes (Bld) [#/Vol] Automated blood monocyte count High 0.0-0.8 [facility] Monocytes/100 WBC Auto (Bld) Ordered By: Phil Pierre on 07-03-2024 Monocytes/100 WBC (Bld) Automated monocyte % . [facility] Neutrophils Auto (Bld) [#/Vo l]Ordered By: Phil Pierre on 07-03-2024 Neutrophils (Bld) [#/Vol] Neutrophils [#/volume] in Blood by Automated count 1.8-7.7 [facility] Neutrophils/100 WBC Auto (Bl d)Ordered By: Phil Pierre on 07-03-2024 Neutrophils/100 WBC (Bld) Automated neutrophil % . [facility] No Panel InformationOrdered By: Phil Pierre on 07-03-2024 Estimated GFR (CKD-EPI) > 60.0 mL/Min [facility] Creatinine Clearance (Chem N/A [facility] Nucleated erythrocytes [Pres ence] in Blood by Automated countOrdered By: Phil Pierre on 07-03-2024 Nucleated RBC Auto Ql (Bld) Nucleated erythrocytes [Presence] in Blood by Automated count 0-0.5 [facility] Platelet mean volume Auto (B ld) [Entitic vol]Ordered By: Phil Pierre on 07-03-2024 Platelet mean volume (Bld) [Entitic vol] Platelet mean volume [Entitic volume] in Blood by Automated count 6.6-10.1 [facility] Platelets Auto (Bld) [#/Vol] Ordered By: Phil Pierre on 07-03-2024 Platelets (Bld) [#/Vol] Platelets [#/vol ume] in Blood by Automated count 150-450 [facility] Potassium [Moles/volume] in Serum or PlasmaOrdered By: Phil Pierre on 07-03-2024 Potassium [Moles/Vol] Potassium [Moles/volume] in Serum or Plasma 3.5-5.1 [facility] Prostate specific Ag [Mass/v olume] in Serum or PlasmaOrdered By: Phil Pierre on 07-03-2024 Prostate specific Ag [Mass/Vol] Prostate specific Ag [Mass/volume] in Serum or Plasma 0.000-4.000 [facility] Comment on above: Serial tumor marker results determined by assays using different manufacturers or methods may not be comparable.[facility] caramel cutter helper and method:[email or web address] DXI, CHEMILUMINESCENT IMMUNOASSAY. Protein [Mass/volume] in Ser um or PlasmaOrdered By: Phil Pierre on 07-03-2024 Protein [Mass/Vol] Protein [Mass/volume ] in Serum or Plasma 6.4-8.9 [facility] RBC Auto (Bld) [#/Vol]Ordere d By: Phil Pierre on 07-03-2024 RBC (Bld) [#/Vol] Erythrocytes [#/volu me] in Blood by Automated count 3.90-5.60 [facility] Serum or plasma albumin/glob ulin mass ratioOrdered By: Phil Pierre on 07-03-2024 Albumin/Globulin [Mass ratio] Serum or plasma albumin/globulin mass ratio [facility] Serum or plasma anion gap de terminationOrdered By: Phil Pierre on 07-03-2024 Anion gap [Moles/Vol] Serum or plasma an ion gap determination 6.0-15.0 [facility] Serum or plasma total choles terol/high density lipoprotein (HDL) cholesterol mass ratOrdered By: Phil Pierre on 07-03-2024 Cholesterol.total/Eula sterol in HDL [Mass ratio] Serum or plasma total cholesterol/high density lipoprotein (HDL) cholesterol mass rat <5.0 [facility] Sodium [Moles/volume] in Ser um or PlasmaOrdered By: Phil Pierre on 07-03-2024 Sodium [Moles/Vol] Sodium [Moles/volume ] in Serum or Plasma Low 136-145 [facility] Triglyceride [Mass/volume] i n Serum or PlasmaOrdered By: Phil Pierre on 07-03-2024 Triglyceride [Mass/Vol] Triglyceride [Mass/volume] in Serum or Plasma High 0-149 [facility] Comment on above: TRIG ATP III CLASSIF ICATIONTRIG less than 150 mg/dL NormalTRIG 150-199 mg/dL Borderline highTRIG 200-500 mg/dL High TRIG greater than 500 mg/dL Very highStandard traceable to the Center for Disease Conrtrol and Prevention (CDC) test method. 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 with decreased joint space narrowing and negative fractures identified with increase of interphalangeal angle of the right hallux IPJ [facility] Radiology Study observation (narrative) [facility] Influenza virus B Ag [Presen ce] in Upper respiratory specimen by Rapid immunoassayon 05-15-2024 FLUBV Ag IA.rapid Ql (Nph) Influenza virus B Ag [Presence] in Upper respiratory specimen by Rapid immunoassay [facility] No Panel Informationon 05-15 Influenza Type A (Rapid) Negative [facility] POC SARS CoV-2 Antigen Negative [facility] Basophils Auto (Bld) [#/Vol] on 10-10-2023 Basophils (Bld) [#/Vol] 0.1 10 3/uL 0.0-0.1 [facility] Basophils/100 WBC Auto (Bld) on 10-10-2023 Basophils/100 WBC (Bld) 0.7 % 0.2-2.0 F [facility] Eosinophils/100 WBC Auto (Bl d)on 10-10-2023 Eosinophils/100 WBC (Bld) 2.8 % 0.9-7.0 [facility] Erythrocyte distribution wid th Auto (RBC) [Ratio]on 10-10-2023 Erythrocyte distribution width (RBC) [Ratio] 11.5 % 11.0-15.0 [facility] Hematocrit Auto (Bld) [Volum e fraction]on 10-10-2023 Hematocrit (Bld) [Volume fraction] 40.7 % Low 42.0-54.0 [facility] Hemoglobin [Mass/volume] in Bloodon 10-10-2023 Hemoglobin (Bld) [Mass/Vol] 13.6 g/dL Low 14.0-18.0 [facility] Iron binding capacity [Mass/ volume] in Serum or Plasmaon 10-10-2023 Iron binding capacity [Mass/Vol] 362.0 ug/dL 250.0-450.0 [facility] Iron saturation [Mass Fracti on] in Serum or Plasmaon 10-10-2023 Iron saturation [Mass fraction] 32.3 % [facility] Laboratory - Chemistry and C hemistry - challengeon 10-10-2023 Cobalamin (Vitamin B12) [Mass/Vol] 1150.0 pg/mL High 193.0-986.0 [facility] Ferritin [Mass/Vol] 277.0 ng/mL 26.0-388.0 [facility] Iron [Mass/Vol] 117.0 ug/dL 65.0-175.0 [facility] - Hematology and Cell countson 10-10-2023 Immature granulocytes/100 WBC (Bld) 0.3 % 0.0-0.5 [facility] Leukocytes [#/volume] correc jabier for nucleated erythrocytes in Blood by Automated counon 10-10-2023 WBC corrected for nucl RBC Auto (Bld) [#/Vol] 6.8 10 3/uL 4.0-11.0 [facility] Lymphocytes Auto (Bld) [#/Vo l]on 10-10-2023 Lymphocytes (Bld) [#/Vol] 1.8 10 3/uL 1.2-3.8 [facility] Lymphocytes/100 WBC Auto (Bl d)on 10-10-2023 Lymphocytes/100 WBC (Bld) 25.9 % 20.5-60.0 [facility] MCH Auto (RBC) [Entitic mass ]on 10-10-2023 MCH (RBC) [Entitic mass] 32.4 pg 25.9-34.0 [facility] MCHC Auto (RBC) [Mass/Vol]on 10-10-2023 MCHC (RBC) [Mass/Vol] 33.4 g/dL 29.9-35.2 [facility] MCV Auto (RBC) [Entitic vol] on 10-10-2023 MCV (RBC) [Entitic vol] 96.9 fL High 80.0-94.0 F [facility] Monocytes Auto (Bld) [#/Vol] on 10-10-2023 Monocytes (Bld) [#/Vol] 1.0 10 3/uL High 0.3-0.8 [facility] Monocytes/100 WBC Auto (Bld) on 10-10-2023 Monocytes/100 WBC (Bld) 15.2 % High 1.7-12.0 F [facility] Neutrophils Auto (Bld) [#/Vo l]on 10-10-2023 Neutrophils (Bld) [#/Vol] 3.7 10 3/uL 1.4-6.5 [facility] Neutrophils/100 WBC Auto (Bl d)on 10-10-2023 Neutrophils/100 WBC (Bld) 55.1 % 43.0-75.0 [facility] No Panel Informationon 10-09 Eosinophils # (Auto) 0.2 10 3/uL 0.0-0.7 [facility] Folate 26.40 ng/mL 8.60-58.90 [facility] Immature Granulocyte # (Auto) 0.02 10 3/uL 0.00-0.03 [facility] Platelet mean volume Auto (B ld) [Entitic vol]on 10-10-2023 Platelet mean volume (Bld) [Entitic vol] 9.0 fL Low 9.5-13.5 [facility] Platelets Auto (Bld) [#/Vol] on 10-10-2023 Platelets (Bld) [#/Vol] 320 10 3/uL 150-450 [facility] RBC Auto (Bld) [#/Vol]on RBC (Bld) [#/Vol] 4.20 10 6/uL Low 4.70-6.10 [facility] Basophils Auto (Bld) [#/Vol] on 06-29-2023 Basophils (Bld) [#/Vol] 0.0 10 3/uL 0.0-0.1 [facility] Basophils/100 WBC Auto (Bld) on 06-29-2023 Basophils/100 WBC (Bld) 0.5 % 0.2-2.0 F [facility] Cholesterol in LDL Calc [Mas s/Vol]on 06-29-2023 Cholesterol in LDL [Mass/Vol] 187.0 mg/dL [facility] Comment on above: <100 mg/dl [id number] 0-129 mg/dl NEAR OR ABOVE [id number] mg/dl BORDERLINE [id number] mg/dl HIGH>190 mg/dl VERY HIGH Cholesterol in VLDL Calc [Ma ss/Vol]on 06-29-2023 Cholesterol in VLDL [Mass/Vol] 20.4 mg/dL [facility] Eosinophils/100 WBC Auto (Bl d)on 06-29-2023 Eosinophils/100 WBC (Bld) 3.8 % 0.9-7.0 [facility] Erythrocyte distribution wid th Auto (RBC) [Ratio]on 06-29-2023 Erythrocyte distribution width (RBC) [Ratio] 11.9 % 11.0-15.0 [facility] Estimated glomerular filtrat ion rate (GFR) non- Americanon 06-29-2023 GFR/1.73 sq M.predicted among non-blacks MDRD (S/P/Bld) [Vol rate/Area] mL/min/{1.73_m2} >=60 [facility] Globulin Calc (S) [Mass/Vol] on 06-29-2023 Globulin (S) [Mass/Vol] 3.8 g/dL F [facility] Glucose mean value [Mass/vol ume] in Blood Estimated from glycated hemoglobinon 06-29-2023 Average glucose Estimated from glycated hemoglobin (Bld) [Mass/Vol] 103 mg/dL [facility] Hematocrit Auto (Bld) [Volum e fraction]on 06-29-2023 Hematocrit (Bld) [Volume fraction] 40.0 % 42.0-54.0 [facility] Hemoglobin [Mass/volume] in Bloodon 06-29-2023 Hemoglobin (Bld) [Mass/Vol] 13.3 g/dL 14.0-18.0 [facility] Laboratory - Chemistry and C hemistry - challengeon 06-29-2023 Albumin [Mass/Vol] 4.2 g/dL 3.4-5.0 [facility] ALP [Catalytic activity/Vol] 89 U/L 46-116 [facility] ALT [Catalytic activity/Vol] 39 U/L 16-63 [facility] AST [Catalytic activity/Vol] 27 U/L 15-37 [facility] Bilirubin [Mass/Vol] 0.5 mg/dL 0.2-1.0 [facility] Calcium [Mass/Vol] 9.6 mg/dL 8.5-10.1 [facility] Chloride [Moles/Vol] 94 mmol/L 98-107 [facility] Cholesterol [Mass/Vol] 264 mg/dL <=200 [facility] Cholesterol in HDL [Mass/Vol] 57 mg/dL 40-60 [facility] Comment on above: > or =60 mg/dl - LOW CARDIOVASCULAR RISK<40 mg/dl - HIGH CARDIOVASCULAR RISK CO2 [Moles/Vol] 26.2 mmol/L 21.0-32.0 [facility] Creatinine [Mass/Vol] 0.96 mg/dL 0.70-1.30 [facility] GFR/1.73 sq M.predicted MDRD (S/P/Bld) [Vol rate/Area] mL/min/{1.73_m2} >=60 [facility] Glucose [Mass/Vol] 85 mg/dL 74-106 [facility] Potassium [Moles/Vol] 4.6 mmol/L 3.5-5.1 [facility] Protein [Mass/Vol] 8.0 g/dL 6.4-8.2 [facility] Sodium [Moles/Vol] 133 mmol/L 136-145 [facility] T4 [Mass/Vol] 6.00 ug/dL 4.50-12.10 [facility] Triglyceride [Mass/Vol] 102 mg/dL <=150 F [facility] TSH Qn 0.951 m[IU]/L 0.358-3.740 [facility] Urea nitrogen [Mass/Vol] 10.0 mg/dL 7.0-18.0 [facility] Urea nitrogen/Creatinine [Mass ratio] 10.4 mg/mg [facility] Laboratory - Hematology and Cell countson 06-29-2023 HbA1c (Bld) [Mass fraction] 5.2 % 4.5-6.2 [facility] Comment on above: ADA RECOMMENDED LIMI T 4.0 - 6.0ADA THERAPEUTIC TARGET < 7.0ACTION SUGGESTED> 7.0 Immature granulocytes/100 WBC (Bld) 0.2 % 0.0-0.5 [facility] Leukocytes [#/volume] correc jabier for nucleated erythrocytes in Blood by Automated counon 06-29-2023 WBC corrected for nucl RBC Auto (Bld) [#/Vol] 5.5 10 3/uL 4.0-11.0 [facility] Lymphocytes Auto (Bld) [#/Vo l]on 06-29-2023 Lymphocytes (Bld) [#/Vol] 2.1 10 3/uL 1.2-3.8 [facility] Lymphocytes/100 WBC Auto (Bl d)on 06-29-2023 Lymphocytes/100 WBC (Bld) 37.1 % 20.5-60.0 [facility] MCH Auto (RBC) [Entitic mass ]on 06-29-2023 MCH (RBC) [Entitic mass] 32.4 pg 25.9-34.0 [facility] MCHC Auto (RBC) [Mass/Vol]on 06-29-2023 MCHC (RBC) [Mass/Vol] 33.3 g/dL 29.9-35.2 [facility] MCV Auto (RBC) [Entitic vol] on 06-29-2023 MCV (RBC) [Entitic vol] 97.3 fL 80.0-94.0 F [facility] Monocytes Auto (Bld) [#/Vol] on 06-29-2023 Monocytes (Bld) [#/Vol] 0.8 10 3/uL 0.3-0.8 [facility] Monocytes/100 WBC Auto (Bld) on 06-29-2023 Monocytes/100 WBC (Bld) 14.6 % 1.7-12.0 F [facility] Neutrophils Auto (Bld) [#/Vo l]on 06-29-2023 Neutrophils (Bld) [#/Vol] 2.4 10 3/uL 1.4-6.5 [facility] Neutrophils/100 WBC Auto (Bl d)on 06-29-2023 Neutrophils/100 WBC (Bld) 43.8 % 43.0-75.0 [facility] No Panel Informationon 06-28 Eosinophils # (Auto) 0.2 10 3/uL 0.0-0.7 [facility] Immature Granulocyte # (Auto) 0.01 10 3/uL 0.00-0.03 [facility] Prostate Specific Antigen Screen 0.98 ng/mL <=4.00 [facility] Platelet mean volume Auto (B ld) [Entitic vol]on 06-29-2023 Platelet mean volume (Bld) [Entitic vol] 9.6 fL 9.5-13.5 [facility] Platelets Auto (Bld) [#/Vol] on 06-29-2023 Platelets (Bld) [#/Vol] 330 10 3/uL 150-450 [facility] RBC Auto (Bld) [#/Vol]on RBC (Bld) [#/Vol] 4.11 10 6/uL 4.70-6.10 [facility] Serum or plasma albumin/glob ulin mass ratioon 06-29-2023 Albumin/Globulin [Mass ratio] 1.1 {ratio} [facility] Serum or plasma anion gap de terminationon 06-29-2023 Anion gap [Moles/Vol] 17.4 mmol[facility] Serum or plasma total choles terol/high density lipoprotein (HDL) cholesterol mass mina 06-29-2023 Cholesterol.total/Eula sterol in HDL [Mass ratio] 4.6 {ratio} [facility] Comment on above: 3.3 - 4.4 LOW RISK4. 4 - 7.1 AVERAGE RISK7.1 - 11.0 MODERATE RISK>11.0 HIGH RISK CBC AUTO DIFFon 07-30-2022 BASO # 0.0 103/ul Normal 0.0-0.1 [facility] Comment on above: Performed By: #### C BC #### [facility] [address] [address] [address] Sherman Santos Basophils/100 WBC (Bld) 0.6 % Normal 0.2-2.0 [facility] Comment on above: Performed By: #### C BC #### [facility] [address] [place] [address] Dr. Sherman Santos EO # 0.2 103/ul Normal 0.0-0.7 [facility] Comment on above: Performed By: #### C BC #### [facility] [address] [address] [address] Sherman Santos Eosinophils/100 WBC (Bld) 3.4 % Normal 0.9-7.0 [facility] Comment on above: Performed By: #### C BC #### [facility] [address] [place] [address] Dr. Sherman Santos Erythrocyte distribution width (RBC) [Ratio] 12.9 % Normal 11.0-15.0 [facility] Comment on above: Performed By: #### C BC #### [facility] [address] [place] [address] Dr. Sherman Santos Hematocrit (Bld) [Volume fraction] 42.3 % Normal 42.0-54.0 [facility] Comment on above: Performed By: #### C BC #### [facility] [address] [place] [address] Dr. Sherman Santos Hemoglobin (Bld) [Mass/Vol] 14.1 g/dL Normal 14.0-18.0 [facility] Comment on above: Performed By: #### C BC #### [facility] [address] [place] [address] Dr. Sherman Santos IG # 0.02 10e3/ul Normal 0.00-0.03 [facility] Comment on above: Performed By: #### C BC #### [facility] [address] [place] [address] Dr. Sherman Santos IG % 0.4 % Normal 0.0-0.5 [facility] Comment on above: Performed By: #### C BC #### [facility] [address] [place] [address] Dr. Sherman Santos LYMPH # 1.8 103/ul Normal 1.2-3.8 [facility] Comment on above: Performed By: #### C BC #### [facility] [address] [place] [address] Dr. Sherman Santos Lymphocytes/100 WBC (Bld) 35.9 % Normal 20.5-60.0 [facility] Comment on above: Performed By: #### C BC #### [facility] [address] [place] [address] Dr. Sherman Santos MANUAL DIFF REQ NO Normal [facility] Comment on above: Performed By: #### C BC #### [facility] [address] [place] [address] Dr. Sherman Santos MCH (RBC) [Entitic mass] 32.2 pg Normal 25.9-34.0 [facility] Comment on above: Performed By: #### C BC #### [facility] [address] [place] [address] Dr. Sherman Santos MCHC (RBC) [Mass/Vol] 33.3 g/dL Normal 29.9-35.2 [facility] Comment on above: Performed By: #### C BC #### [facility] [address] [place] [address] Dr. Sherman Santos MCV (RBC) [Entitic vol] 96.6 fL Critically high 80.0-94 .0 [facility] Comment on above: Performed By: #### C BC #### [facility] [address] [address] [address] Sherman Santos MONO # 1.0 103/ul Critically high 0.3-0.8 [facility] Comment on above: Performed By: #### C BC #### [facility] [address] [place] [address] Dr. Sherman Santos Monocytes/100 WBC (Bld) 19.1 % Critically high 1.7-12. 0 [facility] Comment on above: Performed By: #### C BC #### [facility] [address] [place] [address] Dr. Sherman Santos NEUT # 2.0 103/ul Normal 1.4-6.5 [facility] Comment on above: Performed By: #### C BC #### [facility] [address] [place] [address] Dr. Sherman Santos Neutrophils/100 WBC (Bld) 40.6 % Critically low 43.0-75.0 [facility] Comment on above: Performed By: #### C BC #### [facility] [address] [place] [address] Dr. Sherman Santos Platelet mean volume (Bld) [Entitic vol] 9.5 fL Normal 9.5-13.5 [facility] Comment on above: Performed By: #### C BC #### [facility] [address] [place] [address] Dr. Sherman Santos PLT 348 103/ul Normal 150-450 [facility] Comment on above: Performed By: #### C BC #### [facility] [address] [place] [address] Dr. Sherman Santos RBC 4.38 106/ul Critically low 4.70-6.10 [facility] Comment on above: Performed By: #### C BC #### [facility] [address] [place] [address] Dr. Sherman Santos WBC 5.0 103/ul Normal 4.0-11.0 [facility] Comment on above: Performed By: #### C BC #### [facility] [address] [place] [address] Dr. Sherman Santos LIPID PROFILEon 07-30-2022 CHOL-HDL RATIO NORM SEE BELOW Normal [facility] Comment on above: Result Comment: 3.3 - 4.4 LOW RISK 4.4 - 7.1 AVERAGE RISK 7.1 - 11.0 MODERATE RISK >11.0 HIGH RISK Performed By: #### P SASC #### [facility] [address] [address] [address] Sherman Santos Cholesterol [Mass/Vol] 271 mg/dL Critically high <=200 [facility] Comment on above: Performed By: #### P SASC #### [facility] [address] [address] [address] Sherman Santos Cholesterol in HDL [Mass/Vol] 47 mg/dL Normal 40-60 [facility] Comment on above: Performed By: #### P SASC #### [facility] [address] [address] [address] Sherman Santos Cholesterol in LDL [Mass/Vol] 185.6 mg/dL Normal [facility] Comment on above: Performed By: #### P SASC #### [facility] [address] [address] [address] Sherman Santos Cholesterol.total/Eula sterol in HDL [Mass ratio] 5.8 {ratio} Normal [facility] Comment on above: Performed By: #### P SASC #### [facility] [address] [address] [address] Sherman Santos HDL NORMAL > or = 60 mg/dl - LO W CARDIOVASCULAR RISK <40 mg/dl - HIGH CARDIOVASCULAR RISK Normal [facility] Comment on above: Performed By: #### P SASC #### [facility] [address] [address] [address] Sherman Santos LDL CALC NORMAL SEE BELOW Normal [facility] Comment on above: Result Comment: <100 mg/dl OPTIMAL 100 - 129 mg/dl NEAR OR ABOVE OPTIMAL 130 - 159 mg/dl BORDERLINE HIGH 160 - 189 mg/dl HIGH >190 mg/dl VERY HIGH Performed By: #### P SASC #### [facility] [address] [address] [address] Sherman Santos Triglyceride [Mass/Vol] 192 mg/dL Critically high <=150 [facility] Comment on above: Performed By: #### P SASC #### [facility] [address] [address] [address] Sherman Santos VLDL CALC 38.4 mg/dL Normal [facility] Comment on above: Performed By: #### P SASC #### [facility] [address] [address] [address] Sherman Santos PROF 14(COMP METB)on 023 Albumin [Mass/Vol] 4.2 g/dL Normal 3.4-5.0 [facility] Comment on above: Performed By: #### O SMO #### [facility] [address] [place] [address] Dr. Sherman Santos Albumin/Globulin [Mass ratio] 1.1 {ratio} Normal [facility] Comment on above: Performed By: #### O SMO #### [facility] [address] [place] [address] Dr. Sherman Santos ALP [Catalytic activity/Vol] 92 U/L Normal 46-116 [facility] Comment on above: Performed By: #### O SMO #### [facility] [address] [place] [address] Dr. Sherman Santos ALT [Catalytic activity/Vol] 40 U/L Normal 16-63 [facility] Comment on above: Performed By: #### O SMO #### [facility] [address] [place] [address] Dr. Sherman Santos Anion gap [Moles/Vol] 10.5 mmol/L Normal [facility] Comment on above: Performed By: #### O SMO #### [facility] [address] [address] [address] Sherman Santos AST [Catalytic activity/Vol] 30 U/L Normal 15-37 [facility] Comment on above: Performed By: #### O SMO #### [facility] [address] [place] [address] Dr. Sherman Santos Bilirubin [Mass/Vol] 0.7 mg/dL Normal 0.2-1.0 [facility] Comment on above: Performed By: #### O SMO #### [facility] [address] [address] [address] Sherman Santos Calcium [Mass/Vol] 9.6 mg/dL Normal 8.5-10.1 [facility] Comment on above: Performed By: #### O SMO #### [facility] [address] [address] [address] Sherman Santos Chloride [Moles/Vol] 98 mmol/L Normal 98-107 [facility] Comment on above: Performed By: #### O SMO #### [facility] [address] [place] [address] Dr. Sherman Santos CO2 [Moles/Vol] 29.0 mmol/L Normal 21.0-32.[address] [facility] Comment on above: Performed By: #### O SMO #### [facility] [address] [place] [address] Dr. Sherman Santos Creatinine [Mass/Vol] 0.88 mg/dL Normal 0.70-1.30 [facility] Comment on above: Performed By: #### O SMO #### [facility] [address] [place] [address] Dr. Sherman Santos EGFR-AF THAI >60 Normal >=[address] [facility] Comment on above: Performed By: #### O SMO #### [facility] [address] [place] [address] Dr. Sherman Santos EGFR-NON AF THAI >60 Normal >=60 [facility] Comment on above: Performed By: #### O SMO #### [facility] [address] [place] [address] Dr. Sherman Santos Globulin (S) [Mass/Vol] 3.7 g/dL Normal [facility] Comment on above: Performed By: #### O SMO #### [facility] [address] [place] [address] Dr. Sherman Santos Glucose [Mass/Vol] 94 mg/dL Normal 74-106 [facility] Comment on above: Performed By: #### O SMO #### [facility] [address] [address] [address] Sherman Santos Potassium [Moles/Vol] 4.5 mmol/L Normal 3.5-5.1 [facility] Comment on above: Performed By: #### O SMO #### [facility] [address] [address] [address] Sherman Santos Protein [Mass/Vol] 7.9 g/dL Normal 6.4-8.2 [facility] Comment on above: Performed By: #### O SMO #### [facility] [address] [address] [address] Sherman Santos Sodium [Moles/Vol] 133 mmol/L Critically low 136-145 [facility] Comment on above: Performed By: #### O SMO #### [facility] [address] [place] [address] Dr. Sherman Santos Urea nitrogen [Mass/Vol] 8.0 mg/dL Normal 7.0-18.0 [facility] Comment on above: Performed By: #### O SMO #### [facility] [address] [address] [address] Sherman Santos Urea nitrogen/Creatinine [Mass ratio] 9.1 mg/mg Normal [facility] Comment on above: Performed By: #### O SMO #### [facility] [address] [place] [address] Dr. Sherman Santos T4on 07-30-2022 T4 [Mass/Vol] 6.50 ug/dL Normal 4.50-12.10 [facility] Comment on above: Performed By: #### O SMO #### [facility] [address] [place] [address] Dr. Sherman Santos TSHon 07-30-2022 TSH 0.780 uIU/mL Normal 0.358-3.740 [facility] Comment on above: Performed By: #### P SASC #### [facility] [address] [place] [address] Dr. Sherman Santos AMMONIAon 03-02-2022 Ammonia (P) [Moles/Vol] 24 umol/L Normal 11-32 [facility] Comment on above: Performed By: #### P SASC #### [facility] [address] [address] [address] Sherman Santos CBC AUTO DIFFon 03-02-2022 BASO # 0.1 103/ul Normal 0.0-0.1 [facility] Comment on above: Performed By: #### C BC #### [facility] [address] [address] [address] Sherman Santos Basophils/100 WBC (Bld) 0.7 % Normal 0.2-2.0 [facility] Comment on above: Performed By: #### C BC #### [facility] [address] [place] [address] Dr. Sherman Santos EO # 0.2 103/ul Normal 0.0-0.7 [facility] Comment on above: Performed By: #### C BC #### [facility] [address] [place] [address] Dr. Sherman Santos Eosinophils/100 WBC (Bld) 2.7 % Normal 0.9-7.0 [facility] Comment on above: Performed By: #### C BC #### [facility] [address] [place] [address] Dr. Sherman Santos Erythrocyte distribution width (RBC) [Ratio] 12.1 % Normal 11.0-15.0 [facility] Comment on above: Performed By: #### C BC #### [facility] [address] [place] [address] Dr. Sherman Santos Hematocrit (Bld) [Volume fraction] 36.0 % Critically low 42.0-54.0 [facility] Comment on above: Performed By: #### C BC #### [facility] [address] [place] [address] Dr. Sherman Santos Hemoglobin (Bld) [Mass/Vol] 12.6 g/dL Critically low 14.0-18.0 [facility] Comment on above: Performed By: #### C BC #### [facility] [address] [place] [address] Dr. Sherman Santos IG # 0.02 10e3/ul Normal 0.00-0.03 [facility] Comment on above: Performed By: #### C BC #### [facility] [address] [place] [address] Dr. Sherman Santos IG % 0.3 % Normal 0.0-0.5 [facility] Comment on above: Performed By: #### C BC #### [facility] [address] [place] [address] Dr. Sherman Santos LYMPH # 2.7 103/ul Normal 1.2-3.8 [facility] Comment on above: Performed By: #### C BC #### [facility] [address] [place] [address] Dr. Sherman Santos Lymphocytes/100 WBC (Bld) 39.4 % Normal 20.5-60.0 [facility] Comment on above: Performed By: #### C BC #### [facility] [address] [place] [address] Dr. Sherman Santos MANUAL DIFF REQ NO Normal [facility] Comment on above: Performed By: #### C BC #### [facility] [address] [place] [address] Dr. Sherman Santos MCH (RBC) [Entitic mass] 32.1 pg Normal 25.9-34.0 [facility] Comment on above: Performed By: #### C BC #### [facility] [address] [place] [address] Dr. Sherman Santos MCHC (RBC) [Mass/Vol] 35.0 g/dL Normal 29.9-35.2 [facility] Comment on above: Performed By: #### C BC #### [facility] [address] [place] [address] Dr. Sherman Santos MCV (RBC) [Entitic vol] 91.8 fL Normal 80.0-94.0 [facility] Comment on above: Performed By: #### C BC #### [facility] [address] [place] [address] Dr. Sherman Santos MONO # 0.8 103/ul Normal 0.3-0.8 [facility] Comment on above: Performed By: #### C BC #### [facility] [address] [address] [address] Sherman Santos Monocytes/100 WBC (Bld) 11.8 % Normal 1.7-12.0 [facility] Comment on above: Performed By: #### C BC #### [facility] [address] [address] [address] Sherman Santos NEUT # 3.1 103/ul Normal 1.4-6.5 [facility] Comment on above: Performed By: #### C BC #### [facility] [address] [address] [address] Sherman Santos Neutrophils/100 WBC (Bld) 45.1 % Normal 43.0-75.0 [facility] Comment on above: Performed By: #### C BC #### [facility] [address] [address] [address] Sherman Santos Platelet mean volume (Bld) [Entitic vol] 8.5 fL Critically low 9.5-13.5 [facility] Comment on above: Performed By: #### C BC #### [facility] [address] [address] [address] Sherman Santos PLT 292 103/ul Normal 150-450 [facility] Comment on above: Performed By: #### C BC #### [facility] [address] [address] [address] Sherman Santos RBC 3.92 106/ul Critically low 4.70-6.10 [facility] Comment on above: Performed By: #### C BC #### [facility] [address] [address] [address] Sherman Santos WBC 7.0 103/ul Normal 4.0-11.0 [facility] Comment on above: Performed By: #### C BC #### [facility] [address] [address] [address] STROKE HEAD WOon 03-02-20 CT STROKE HEAD WO EXAMINATION: CT STRO KE HEAD WO HISTORY: Altered mental status COMPARISON: MRI 03/02/2022 7:52 AM TECHNIQUE: CT examination of the head without IV contrast. Dose reduction techniques were achieved by using automated exposure control and/or adjustment of mA and/or kV according to patient size and/or use of iterative reconstruction technique. FINDINGS: Mild bilateral chronic microvascular ischemic change. No midline shift, mass effect or intracranial hemorrhage. The mastoid air cells and visualized paranasal sinuses are clear. IMPRESSION: 1. No acute intracranial process is identified. 2. Mild bilateral chronic microvascular ischemic change. Electronically authenticated by: HAWA SULLIVAN Date: 2022-03-02 18:10 Normal [facility] ER URINE PROFILEon 2 Bilirubin Ql (U) Negative Normal NEGATIVE [facility] Comment on above: Performed By: #### E RUR #### [facility] [address] [place] [address] Dr. Sherman Santos Clarity (U) CLEAR Normal CLEAR [facility] Comment on above: Performed By: #### E RUR #### [facility] [address] [place] [address] Dr. Sherman Santos Color (U) LT. YELLOW Normal YELLOW [facility] Comment on above: Performed By: #### E RUR #### [facility] [address] [place] [address] Dr. Sherman CHOW A micrscopic examination will be performed if indicated. Normal [facility] Comment on above: Performed By: #### E RUR #### [facility] [address] [place] [address] Dr. Sherman Santos Glucose Ql (U) Negative Normal NEGATIVE [facility] Comment on above: Performed By: #### E RUR #### [facility] [address] [place] [address] Dr. Sherman Santos Hemoglobin Ql (U) Negative Normal NEGATIVE [facility] Comment on above: Performed By: #### E RUR #### [facility] [address] [place] [address] Dr. Sherman Santos Ketones Ql (U) Negative Normal NEGATIVE [facility] Comment on above: Performed By: #### E RUR #### [facility] [address] [place] [address] Dr. Sherman Santos LEUKOCYTES Negative Normal NEGATIVE [facility] Comment on above: Performed By: #### E RUR #### [facility] [address] [place] [address] Dr. Sherman Santos Nitrite Ql (U) Negative Normal NEGATIVE [facility] Comment on above: Performed By: #### E RUR #### [facility] [address] [place] [address] Dr. Sherman Santos pH (U) 6.0 [pH] Normal 5-9 [facility] Comment on above: Performed By: #### E RUR #### [facility] [address] [place] [address] Dr. Sherman Santos SPEC GRAVITY <=1.005 Abnormal 1.005-<=1.0 25 [facility] Comment on above: Performed By: #### E RUR #### [facility] [address] [place] [address] Dr. Sherman Santos UA PROTEIN Negative Normal NEGATIVE/ TRACE [facility] Comment on above: Performed By: #### E RUR #### [facility] [address] [place] [address] Dr. Sherman Santos UR MICRO IND NOT INDICATED Normal [facility] Comment on above: Performed By: #### E RUR #### [facility] [address] [place] [address] Dr. Sherman Santos Urobilinogen Qn (U) 0.2 {Norris'U}/dL Normal 0.2 - 1. 0 [facility] Comment on above: Performed By: #### E RUR #### [facility] [address] [place] [address] Dr. Sherman Santos MRI BRAIN WO W CONon 022 MRI BRAIN WO W CON EXAMINATION: MRI BRA IN WO W CON HISTORY: Amnesia COMPARISON: No relevant comparison available. TECHNIQUE: A variety of imaging planes and parameters were utilized for visualization of suspected pathology. Images were performed without and with Dotarem contrast. FINDINGS: CEREBRUM: No edema, hemorrhage, mass, acute infarction, or inappropriate atrophy. CEREBELLUM: No edema, hemorrhage, mass, acute infarction, or inappropriate atrophy. BRAINSTEM: No edema, hemorrhage, mass, acute infarction, or inappropriate atrophy. CSF SPACES: Ventricles, cisterns, and sulci are appropriate for age. No hydrocephalus, subarachnoid hemorrhage, or mass. SKULL: No mass or other significant visible lesion. SINUSES: Limited views demonstrate no significant mucosal thickening or fluid. ORBITS: Limited views are unremarkable. OTHER: No abnormal meningeal or parenchymal enhancement. IMPRESSION: 1. Mild age consistent atrophy and minimal chronic small vessel ischemic changes. 2. No suspicious findings to account for patient's symptoms. Electronically authenticated by: CARLOS HOLLOWAY Date: 2022-03-02 09:11 Normal [facility] PROF 14(COMP METB)on 022 Albumin [Mass/Vol] 3.9 g/dL Normal 3.4-5.0 [facility] Comment on above: Performed By: #### O SMO #### [facility] [address] [place] [address] Dr. Sherman Santos Albumin/Globulin [Mass ratio] 1.1 {ratio} Normal [facility] Comment on above: Performed By: #### O SMO #### [facility] [address] [place] [address] Dr. Sherman Santos ALP [Catalytic activity/Vol] 79 U/L Normal 46-116 [facility] Comment on above: Performed By: #### O SMO #### [facility] [address] [place] [address] Dr. Sherman Santos ALT [Catalytic activity/Vol] 35 U/L Normal 16-63 [facility] Comment on above: Performed By: #### O SMO #### [facility] [address] [place] [address] Dr. Sherman Santos Anion gap [Moles/Vol] 12.6 mmol/L Normal [facility] Comment on above: Performed By: #### O SMO #### [facility] [address] [place] [address] Dr. Sherman Santos AST [Catalytic activity/Vol] 25 U/L Normal 15-37 [facility] Comment on above: Performed By: #### O SMO #### [facility] [address] [place] [address] Dr. Sherman Santos Bilirubin [Mass/Vol] 0.3 mg/dL Normal 0.2-1.0 [facility] Comment on above: Performed By: #### O SMO #### [facility] [address] [address] [address] Sherman Santos Calcium [Mass/Vol] 8.9 mg/dL Normal 8.5-10.1 [facility] Comment on above: Performed By: #### O SMO #### [facility] [address] [address] [address] Sherman Santos Chloride [Moles/Vol] 97 mmol/L Critically low 98-107 [facility] Comment on above: Performed By: #### O SMO #### [facility] [address] [place] [address] Dr. Sherman Santos CO2 [Moles/Vol] 23.2 mmol/L Normal 21.0-32.[address] [facility] Comment on above: Performed By: #### O SMO #### [facility] [address] [place] [address] Dr. Sherman Santos Creatinine [Mass/Vol] 0.82 mg/dL Normal 0.70-1.30 [facility] Comment on above: Performed By: #### O SMO #### [facility] [address] [place] [address] Dr. Sherman Santos EGFR-AF THAI >60 Normal >=60 [facility] Comment on above: Performed By: #### O SMO #### [facility] [address] [place] [address] Dr. Sherman Santos EGFR-NON AF THAI >60 Normal >=60 [facility] Comment on above: Performed By: #### O SMO #### [facility] [address] [place] [address] Dr. Sherman Santos Globulin (S) [Mass/Vol] 3.6 g/dL Normal [facility] Comment on above: Performed By: #### O SMO #### [facility] [address] [place] [address] Dr. Sherman Santos Glucose [Mass/Vol] 80 mg/dL Normal 74-106 [facility] Comment on above: Performed By: #### O SMO #### [facility] [address] [address] [address] Sherman Santos Potassium [Moles/Vol] 3.8 mmol/L Normal 3.5-5.1 [facility] Comment on above: Performed By: #### O SMO #### [facility] [address] [address] [address] Sherman Santos Protein [Mass/Vol] 7.5 g/dL Normal 6.4-8.2 [facility] Comment on above: Performed By: #### O SMO #### [facility] [address] [address] [address] Sherman Santos Sodium [Moles/Vol] 129 mmol/L Critically low 136-145 [facility] Comment on above: Performed By: #### O SMO #### [facility] [address] [address] [address] Sherman Santos Urea nitrogen [Mass/Vol] 9.0 mg/dL Normal 7.0-18.0 [facility] Comment on above: Performed By: #### O SMO #### [facility] [address] [place] [address] Dr. Sherman Santos Urea nitrogen/Creatinine [Mass ratio] 11.0 mg/mg Normal [facility] Comment on above: Performed By: #### O SMO #### [facility] [address] [address] [address] Sherman Santos PROF CHEM 8 (BAS METB)on Anion gap [Moles/Vol] 8.4 mmol/L Normal [facility] Comment on above: Performed By: #### B MP #### [facility] [address] [place] [address] Dr. Sherman Santos Calcium [Mass/Vol] 9.4 mg/dL Normal 8.5-10.1 [facility] Comment on above: Performed By: #### B MP #### [facility] [address] [address] [address] Sherman Santos Chloride [Moles/Vol] 99 mmol/L Normal 98-107 [facility] Comment on above: Performed By: #### B MP #### [facility] [address] [address] [address] Sherman Santos CO2 [Moles/Vol] 32.0 mmol/L Normal 21.0-32.[address] [facility] Comment on above: Performed By: #### B MP #### [facility] [address] [place] [address] Dr. Sherman Santos Creatinine [Mass/Vol] 0.97 mg/dL Normal 0.70-1.30 [facility] Comment on above: Performed By: #### B MP #### [facility] [address] [place] [address] Dr. Sherman Santos EGFR-AF THAI >60 Normal >=[address] [facility] Comment on above: Performed By: #### B MP #### [facility] [address] [place] [address] Dr. Sherman Santos EGFR-NON AF THAI >60 Normal >=60 [facility] Comment on above: Performed By: #### B MP #### [facility] [address] [address] [address] Sherman Santos Glucose [Mass/Vol] 138 mg/dL Critically high 74-106 T [facility] Comment on above: Performed By: #### B MP #### [facility] [address] [place] [address] Dr. Sherman Santos Potassium [Moles/Vol] 4.4 mmol/L Normal 3.5-5.1 [facility] Comment on above: Performed By: #### B MP #### [facility] [address] [place] [address] Dr. Sherman Santos Sodium [Moles/Vol] 135 mmol/L Critically low 136-145 Th [facility] Comment on above: Performed By: #### B MP #### [facility] [address] [place] [address] Dr. Sherman Santos Urea nitrogen [Mass/Vol] 13.0 mg/dL Normal 7.0-18.0 [facility] Comment on above: Performed By: #### B MP #### [facility] [address] [place] [address] Dr. Sherman Santos Urea nitrogen/Creatinine [Mass ratio] 13.4 mg/mg Normal [facility] Comment on above: Performed By: #### B MP #### [facility] [address] [place] [address] Dr. Sherman Santos PROTIMEon 03-02-2022 INR Coag (PPP) [Relative time] 0.98 {INR} Normal [facility] Comment on above: Performed By: #### P SASC #### [facility] [address] [place] [address] Dr. Sherman Santos INR GUIDELINES SEE BELOW Normal [facility] Comment on above: Result Comment: LISA RED INR: 2.0 - 3.0 CONDITIONS NOT LISTED BELOW 2.5 - 3.5 FOR PROSTHETIC HEART VALVE REPLACEMENT 2.5 - 3.5 RECURRENT THROMBOSIS Performed By: #### P SASC #### [facility] [address] [place] [address] Dr. Sherman Santos PT Coag (PPP) [Time] 10.6 s Normal 9.0-11.6 [facility] Comment on above: Performed By: #### P SASC #### [facility] [address] [place] [address] Dr. Sherman Santos PTTon 03-02-2022 aPTT Coag (Bld) [Time] 30.2 s Normal 22.3-36.2 [facility] Comment on above: Performed By: #### P SASC #### [facility] [address] [place] [address] Dr. Sherman Santos TROPONIN, HIGH SENSITIVITYon 03-02-2022 HSTROP 75.4 pg/mL Normal 4.0-76.1 [facility] Comment on above: Result Comment: CUT- OFF POINTS HAVE BEEN ESTABLISHED BASED ON THE FOURTH UNIVERSAL DEFINITIONS OF MYOCARDIAL INFARCTION. THE UPPER REFERENCE LIMIT (URL) OF TROPONIN, DEFINED THE 99TH PERCENTILE OF cTnI DISTRIBUTION IN A REFERENCE POPULATION, HAS BEEN CONFIRMED THE DECISION THRESHOLD FOR RI DIAGNOSIS. Performed By: #### O SMO #### [facility] [address] [address] [address] Sherman Santos TSHon 03-02-2022 TSH 1.556 uIU/mL Normal 0.358-3.740 [facility] Comment on above: Performed By: #### O SMO #### [facility] [address] [address] [address] Sherman Santos XR CHEST 1 Von 03-02-2022 XR CHEST 1 V EXAMINATION: XR CHES T 1 V, , 03/02/2022 5:36 PM EST INDICATION: Altered mental status HISTORY: Ordering Provider Reason for Exam: Technologist Note: Additional: COMPARISON: None. TECHNIQUE: Chest x-ray: One view. FINDINGS: No pneumothorax, pleural effusion or focal airspace consolidation. Heart is normal in size. Bony thorax is unremarkable. IMPRESSION: No acute cardiopulmonary process. Electronically authenticated by: SOPHIA AMBRIZ Date: 2022-03-02 18:40 Normal [facility] XR FOREIGN BODY EYEon 2021 XR FOREIGN BODY EYE EXAM: XR FOREIGN BOD Y EYE HISTORY: Foreign body in eye COMPARISON: Radiograph 10/21/2020 TECHNIQUE: Lateral and AP radiographs of the facial bones FINDINGS: The teeth are absent. Punctate metallic densities related to the mandible again noted. No radiopaque foreign body in the region of the orbits. Rightward nasal septal deviation. No fracture identified. IMPRESSION: 1. No radiopaque foreign body in the region of the orbits. Electronically authenticated by: BAL OVERTON Date: 2022-03-02 07:55 Normal [facility] OSMOLALITYon 01-14-2022 Osmolality [Osmolality] 284 mosm/kg Normal 280-301 [facility] Comment on above: Performed By: #### O SMO #### [facility] [address] [address] [address] Sherman Santos OSMOLALITY URINEon Osmolality, Urine 375 mOsmol/kg Normal [facility] Comment on above: Result Comment: 24 h r : 300 - 900 Random: 50 - 1400 After 12hr fluid restriction: >850 Performed By: #### O SMO #### [facility] [address] [address] [address] Sherman Santos CBC AUTO DIFFon 01-12-2022 BASO # 0.0 103/ul Normal 0.0-0.1 [facility] Comment on above: Performed By: #### T SH URIC, CMP #### [facility] [address] [place] [address] Dr. Sherman Santos Basophils/100 WBC (Bld) 0.4 % Normal 0.2-2.0 [facility] Comment on above: Performed By: #### T SH URIC, CMP #### [facility] [address] [place] [address] Dr. Sherman Santos EO # 0.2 103/ul Normal 0.0-0.7 [facility] Comment on above: Performed By: #### T SH URIC, CMP #### [facility] [address] [place] [address] Dr. Sherman Santos Eosinophils/100 WBC (Bld) 4.0 % Normal 0.9-7.0 [facility] Comment on above: Performed By: #### T SH URIC, CMP #### [facility] [address] [place] [address] Dr. Sherman Santos Erythrocyte distribution width (RBC) [Ratio] 12.6 % Normal 11.0-15.0 [facility] Comment on above: Performed By: #### T SH URIC, CMP #### [facility] [address] [place] [address] Dr. Sherman Santos Hematocrit (Bld) [Volume fraction] 43.7 % Normal 42.0-54.0 [facility] Comment on above: Performed By: #### T SH, URIC, CMP #### [facility] [address] [place] [address] Dr. Sherman Santos Hemoglobin (Bld) [Mass/Vol] 14.7 g/dL Normal 14.0-18.0 [facility] Comment on above: Performed By: #### T SH, URIC, CMP #### [facility] [address] [place] [address] Dr. Sherman Santos IG # 0.01 10e3/ul Normal 0.00-0.03 [facility] Comment on above: Performed By: #### T SH, URIC, CMP #### [facility] [address] [address] [address] Sherman Santos IG % 0.2 % Normal 0.0-0.5 [facility] Comment on above: Performed By: #### T SH, URIC, CMP #### [facility] [address] [address] [address] Sherman Santos LYMPH # 1.5 103/ul Normal 1.2-3.8 [facility] Comment on above: Performed By: #### T SH, URIC, CMP #### [facility] [address] [address] [address] Sherman Santos Lymphocytes/100 WBC (Bld) 30.5 % Normal 20.5-60.0 [facility] Comment on above: Performed By: #### T SH, URIC, CMP #### [facility] [address] [place] [address] Dr. Sherman Santos MANUAL DIFF REQ NO Normal [facility] Comment on above: Performed By: #### T SH, URIC, CMP #### [facility] [address] [place] [address] Dr. Sherman Santos MCH (RBC) [Entitic mass] 32.5 pg Normal 25.9-34.0 [facility] Comment on above: Performed By: #### T SH, URIC, CMP #### [facility] [address] [place] [address] Dr. Sherman Santos MCHC (RBC) [Mass/Vol] 33.6 g/dL Normal 29.9-35.2 [facility] Comment on above: Performed By: #### T SH, URIC, CMP #### [facility] [address] [address] [address] Sherman Santos MCV (RBC) [Entitic vol] 96.7 fL Critically high 80.0-94 .0 [facility] Comment on above: Performed By: #### T SH, URIC, CMP #### [facility] [address] [address] [address] Sherman Santos MONO # 0.9 103/ul Critically high 0.3-0.8 [facility] Comment on above: Performed By: #### T SH URIC, CMP #### [facility] [address] [place] [address] Dr. Sherman Santos Monocytes/100 WBC (Bld) 18.0 % Critically high 1.7-12. 0 [facility] Comment on above: Performed By: #### T SH URIC, CMP #### [facility] [address] [place] [address] Dr. Sherman Santos NEUT # 2.4 103/ul Normal 1.4-6.5 [facility] Comment on above: Performed By: #### T MATHIEU URIC, CMP #### [facility] [address] [place] [address] Dr. Sherman Santos Neutrophils/100 WBC (Bld) 46.9 % Normal 43.0-75.0 [facility] Comment on above: Performed By: #### T MATHIEU URIC, CMP #### [facility] [address] [place] [address] Dr. Sherman Santos Platelet mean volume (Bld) [Entitic vol] 9.0 fL Critically low 9.5-13.5 [facility] Comment on above: Performed By: #### T MATHIEU URIC, CMP #### [facility] [address] [place] [address] Dr. Sherman Santos PLT 289 103/ul Normal 150-450 [facility] Comment on above: Performed By: #### T MATHIEU URIC, CMP #### [facility] [address] [place] [address] Dr. Sherman Santos RBC 4.52 106/ul Critically low 4.70-6.10 [facility] Comment on above: Performed By: #### T SH URIC, CMP #### [facility] [address] [place] [address] Dr. Sherman Santos WBC 5.0 103/ul Normal 4.0-11.0 [facility] Comment on above: Performed By: #### T SH URIC, CMP #### [facility] [address] [place] [address] LUNG CANCER SCREENINGon 1 CT LUNG CANCER SCREENING EXAMINATION: CT LUNG CANCER SCREENING HISTORY: Tobacco dependence caused by cigarettes COMPARISON: No relevant comparison 07/18/2020ilable. TECHNIQUE: Axial, Coronal, and Sagittal images were created without the administration of IV contrast material. Dose reduction techniques were achieved by using automated exposure control and/or adjustment of mA and/or kV according to patient size and/or use of iterative reconstruction technique. FINDINGS: LUNGS: Stable appearance of a few small nodules scattered within the lungs, largest is 6 mm. No new nodules or infiltrates. Mild emphysematous changes. PLEURA: No mass, effusion, or pneumothorax. VASCULATURE: No abnormality. HARDIK: No mass or pathologic adenopathy. MEDIASTINUM: No mass or pathologic adenopathy. CARDIAC: No enlargement, pericardial thickening, or significant calcification. AORTA: No aneurysm or dissection. CHEST WALL: No mass or axillary adenopathy BONES: No bone lesion or fracture. LIMITED ABDOMEN: No suspicious findings. Limited images of the upper abdomen. OTHER: Negative. IMPRESSION: 1. Lung-RADS 2- Benign Appearance or Behavior. Nodules with a very low likelihood of becoming a clinically active cancer due to size or lack of growth. Follow-up CT Chest in 1 year. Electronically authenticated by: CARLOS HOLLOWAY Date: 2022-01-12 19:43 Normal [facility] PROF 14(COMP METB)on 022 Albumin [Mass/Vol] 4.1 g/dL Normal 3.4-5.0 [facility] Comment on above: Performed By: #### T SH URIC, CMP #### [facility] [address] [address] [address] Sherman Santos Albumin/Globulin [Mass ratio] 1.1 {ratio} Normal [facility] Comment on above: Performed By: #### T SH URIC, CMP #### [facility] [address] [address] [address] Sherman Santos ALP [Catalytic activity/Vol] 88 U/L Normal 46-116 [facility] Comment on above: Performed By: #### T SH URIC, CMP #### [facility] [address] [address] [address] Sherman Santos ALT [Catalytic activity/Vol] 42 U/L Normal 16-63 [facility] Comment on above: Performed By: #### T MATHIEU URIC, CMP #### [facility] [address] [place] [address] Dr. Sherman Santos Anion gap [Moles/Vol] 9.5 mmol/L Normal [facility] Comment on above: Performed By: #### T MATHIEU URIC, CMP #### [facility] [address] [place] [address] Dr. Sherman Santos AST [Catalytic activity/Vol] 29 U/L Normal 15-37 [facility] Comment on above: Performed By: #### T MATHIEU URIC, CMP #### [facility] [address] [place] [address] Dr. Sherman Santos Bilirubin [Mass/Vol] 0.4 mg/dL Normal 0.2-1.0 [facility] Comment on above: Performed By: #### T MATHIEU URIC, CMP #### [facility] [address] [place] [address] Dr. Sherman Santos Calcium [Mass/Vol] 9.4 mg/dL Normal 8.5-10.1 [facility] Comment on above: Performed By: #### T MATHIEU URIC, CMP #### [facility] [address] [place] [address] Dr. Sherman Santos Chloride [Moles/Vol] 101 mmol/L Normal 98-107 [facility] Comment on above: Performed By: #### T MATHIEU URIC, CMP #### [facility] [address] [place] [address] Dr. Sherman Santos CO2 [Moles/Vol] 30.4 mmol/L Normal 21.0-32.0 [facility] Comment on above: Performed By: #### T MATHIEU URIC, CMP #### [facility] [address] [place] [address] Dr. Sherman Santos Creatinine [Mass/Vol] 0.94 mg/dL Normal 0.70-1.30 [facility] Comment on above: Performed By: #### T MATHIEU URIC, CMP #### [facility] [address] [address] [address] Sherman Santos EGFR-AF THAI >60 Normal >=60 [facility] Comment on above: Performed By: #### T SH, URIC, CMP #### [facility] [address] [address] [address] Sherman Santos EGFR-NON AF THAI >60 Normal >=60 [facility] Comment on above: Performed By: #### T SH, URIC, CMP #### [facility] [address] [address] [address] Sherman Santos Globulin (S) [Mass/Vol] 3.9 g/dL Normal [facility] Comment on above: Performed By: #### T MATHIEU URIC, CMP #### [facility] [address] [place] [address] Dr. Sherman Santos Glucose [Mass/Vol] 95 mg/dL Normal 74-106 [facility] Comment on above: Performed By: #### T MATHIEU URIC, CMP #### [facility] [address] [place] [address] Dr. Sherman Santos Potassium [Moles/Vol] 3.9 mmol/L Normal 3.5-5.1 [facility] Comment on above: Performed By: #### T MATHIEU URIC, CMP #### [facility] [address] [place] [address] Dr. Sherman Santos Protein [Mass/Vol] 8.0 g/dL Normal 6.4-8.2 [facility] Comment on above: Performed By: #### T SH, URIC, CMP #### [facility] [address] [place] [address] Dr. Sherman Santos Sodium [Moles/Vol] 137 mmol/L Normal 136-145 [facility] Comment on above: Performed By: #### T SH, URIC, CMP #### [facility] [address] [place] [address] Dr. Sherman Santos Urea nitrogen [Mass/Vol] 12.0 mg/dL Normal 7.0-18.0 [facility] Comment on above: Performed By: #### T SH URIC, CMP #### [facility] [address] [address] [address] Sherman Santos Urea nitrogen/Creatinine [Mass ratio] 12.8 mg/mg Normal [facility] Comment on above: Performed By: #### T SH, URIC, CMP #### [facility] [address] [address] [address] Sherman Santos SODIUM RANDOM URINEon 2021 Sodium (U) [Moles/Vol] 65 mmol/L Normal 30-90 [facility] Comment on above: Performed By: #### O SMO #### [facility] [address] [place] [address] Dr. Sherman Santos TSHon 01-12-2022 TSH 0.912 uIU/mL Normal 0.358-3.740 [facility] Comment on above: Performed By: #### T SH, URIC, CMP #### [facility] [address] [place] [address] Dr. Sherman Santos URIC ACID SERUMon 01-12-2022 Urate [Mass/Vol] 5.1 mg/dL Normal 3.5-7.[address] [facility] Comment on above: Performed By: #### T SH, URIC, CMP #### [facility] [address] [place] [address] Dr. Sherman Santos Reminderson 11-19-2021 Reminders - From: Matt Stevens To: АННА - Reminders/Recalls; Sent: 11/19/2021 10:05:02 EDT Show up: 08/26/2028 10:04:00 EDT Subject: colonoscopy reminder Due Date/Time: 09/23/2028 10:04:00 EDT Reminder/Recall 5 year colonoscopy reminder(2026) Normal [facility] Coding Summary.on 10-02-2021 Coding Summary. CD:[id number] Gh0 bWw+PGhlYWQ+BO4MDKByB78 vbMQcrE3LH7tCVF0GUJQKNU GDFG4XOK8ymUM8GKmqS8Hck iAv LtjttZLcHI20SCq0WVY7ePd mKTzbbA0dbNIvR0f7EaNjHJ 20zW02LDbyGUNoSbR8FgMpt jsgbWFy O8xnBxVjeJIlRzm+PHRhYmx lIHdpZHRoPScxMDAlJyBzdH swOK9nOb1jDAPkEUHkmDumt HNlOiBj z5gxGKWiLUzkHO2bzTjyA0J yuTE8BNDmw6v7Iw06mOU+PH GeXCF4gSpwPLaej025GaWmu 5mrJBI6 zOQyDJioKHC5F31cm6E9KJQ pQCGtXWU4zIV4nW0eiKztyn jgN3EceZTkZyQ8SMB4bEPvk I3pkXei lttfiV1yBpc+W63SZP5FOWQ YSG3CBgx0I3UhEqzteNF+PC 99VXOrNG06pBFtuPEwe7srf Nc9AbQx GKBiISZ0kUjhDWppf3QiULI cC10jhNNdf3X9BMChuKviuF EiNgKzeFD4sP3tUVokdvudw 2hvdzsn Clgvr5qkeo96vP12T00rCIb cCXLsLNH5UTSzBEWjqXudmd 6omE9fCz2+GNchr6bqq7pww Rg9EiUu ZBYpoeBeyHynQBR9e1BaVf1 8F2MjkYnhz2KlPxw2oh78mS Vis9S2nNR6MHbiYZFkyS3cR WxlZnQ6 MDOcUpVabU23pHMjVPbtGi5 cpYyqsEdtTI1jVHWqiertCP TkuQ7fZMGznPQpjLpwST3qL TBpbjtm r099AkMzXOU4OGAyuGQtG5C eaW7xBjBoNSDqRVHcN0LeaQ XxTUyiP701PCrpPxH8PUTgm cKqU3Nc AITkjUonCdE0c6S1Po2Vx9Z ihbmaPAO2LKilRWD7OfG0Ot YxMqK1S8PpShb7YBWtoIbrH D7fH1Bu HNUhminxdqfxeFN1TMOkFNC ldT60iRAmLFkvUa1wm7L6j7 95IJHcHUQwhH19Qg4asRgbM TBwdCBU cA2nbdawl1ikkrzcCtAfZMR xBXi5DPv1GXPqtToyQpAjGI C7MfF6ZBK8yOGqlV5xuYvda lxigY0i Oyc+H16zwP6nCXB2UXJ9gys jTTZekgFiEO06EN98N6SxQn wvdGFibGU+PGRpdiBzdHlsZ F7nKqLp r2krp9XiBWsmK8HrBGYpGWq uVrp2RTNpNZV5bKA5yP6tRC ReOLain7X6cWL5D4KdrlFzz a7cz7za GXCgSAhrQ13saIDuo5P9AYO zgGW3QYFgnKcjZdOtgC07Qy c+JCBufZzgl9SqDgque2igi 5kxkWs0 CjLfEDGbkuIbcVfgXBX0v1J vJx35H39ySIhcNRGhFYFtQE XvOIJheOejxc6uzN5sJg9+P GNvbCB3 yMT8sW0xEAOuOzV7UAzpW33 5JpRnnFKrQntub3ekn6sgjI e2KyIdSCLoykAihMmqNRR7w 6PaWq77 U19gQQscNJAzDVTqGTXpMYJ fxSpdae0xyL8qUf9+PC9jb2 qrya19cQ03nCQ+QZBaNBO7i WxlPSdw IORahD1iUArlUhG1ZZRyAdV hyK18sWRqOPowWn0buGpckD rjIB8gWENocjaod108SvUmm 2xkIDEw nGAaQAfcDTN6E98eh6U3JYK kHAUlOCU7tYP1fH9haYgpbb ogbGVmdDsgdmVydGljYWwtY IhjD331 IHRvcDsnPlBhdGllbnQgTmF dNIr9Y1YiTii1XNNeuUriDO 1erCHpMObiTk0onPboaLxpH A4lVYLf dkxap567HmTfa8ufWAYtmVP xPIysVTI3C06cc8S4RVDtIE OdLUS4eEY2dB7gxIijfrxjh GVmdDsg oeDxtNkaJLuxJWouU553HEQ iaQkaOmGafdDaWERxcDY8ZS 58ZP03jBCzl7V6yJA2S8ZeV GRpbmct zyabrXW9PFOoXGYjjI51Dp1 udSqaGu1rUOIuFQU7SZXygW AvC9ZpxM7nYlVcBIPnDFOeW 3RleHQt EYlpL474DHnvJzN2IZWpwlP yA7RaZTWldIxjXgN0h4E6Zq 6OE4I0NR57DT56zNOhk6C7x JF2X5Xh ZGDqwfjlnrwzxFT1VNUzYJS zlD76Qe9vjVruKo2aVELgAD V6AONyaFFzJ1VhnZ0eDnRfU DAwMDAw L1ZhbRJbXRkeA194IJirVmX 6TDDbrqKnN8LsZAPhxSsiSz S6y7U5Lw7WGXt1OS13KU37f JGjr1I3 tVU0R1DrIZVuxgndilxveCM 6KDBnBJLqnA21Qb6mhCslMb 1sVURlNSU4WMKctZUkQ3Ofk H1vMhPk DXUtZEUgP3QltJYnFKgfL73 5HIuqVnQ6QVOlswDqT7RcAD GojBwxEmX7l6Z8Zx4FLIOfZ X46MUQ0 mRI5ZV65VH07S0QfKffmyGA ibGU+PHRhYmxlIHdpZHRoPS yiBYJeNqNzaMreCY0yFl2tK GVyLWNv aUsnyJCuYuYoh6ogXEVyPQp uPK7kbEqoJ6CakBK0TOBcr2 m0Gm12Z59xJ0NdaQN+PGNvb UJ0lVA2 iN8kAcQeMzK7AJcwG719JwT xzCEsLjimf3bic8pswHr5Jw V9XLLwxvOogCquJQH3m1GrD s73U56x IHdpZHRoPSIxNSUiIHZhbGl hax2dlO8eXz3+GGCdlAF4oP U2mP2iGoPyXxP3XUicY883N nRvcCIv Kvnnc5jkl0iuwVy6KfGgBWL apeTorRxjURP1w4CpMe82R4 PgqFtuy6VkNzs2df01vVDfj 1N8fXU4 N0GjBXHlkbnzdGKfbJhnYZ3 eDRVdgceeHWNpvS6aSLNkB6 i2MzSoYnM6HXuwY7JttkE8R DEwcHQg ZKdhWCO5B05ei1R4PQCvDXX cYKL8cSA4lY8gdUpcpbcjcB VmdDsgdmVydGljYWwtYWxpZ 246IHRv sHspBZNxhP8rFLRpxPFweXe qES6fTZNbcjhnLp4JGD5NHV BLY4eFPTA1I3SgJhs9XTCht GsmZS8c gSAvCRujXo1tzNtgcQopRA1 eANJiauzaDJCfxE6oFLThaA UrgWumCI1hGYIoysnvg601I iAxMHB0 VFJspOCbA7HbnD6sQsZgLPW zBMBaJ2HxqMJfYDeaP881ZK bhLyV6OKTohoSyF6LcEFNqw WduOiB0 l4D4Iu9vGp1dYC8mPCR2YG7 1LD18qWZlz0T2iZH7Z4ZwLX KhouzpewuegBR3GFXcXGKwl P37nFLz HYtoTj2ep5G8z332DFGnOAB ysS72Kb1huTszRENsmFAYeU 9bqryef2uvxxsvDcJbZEMgN Di4AHw6 TJYxhZpmLeAuOZA8HnH5BDG 9hRReqZ8dlLgfvmjidE3oZk c+QqLzUOLfurE1H9RfNhl5U CBzdHls UM8okLDrUWgdYx4ssFzzmPt zAO9vLNFodnkpDYFauP4eDB OjcJUqoBysXW5eKBMhwwrrs 250OiAx LIV4VSQytMXvB7AetC2rChQ uFBHsOWMjQ1DzfYMlBFtlC0 57UOwyTbN7TADmwiTaV4EsB WFsaWdu NqU7u7O1Fo4CZGqpSJ03SE0 7lWHah4K2wCV5K4PtSQIjww glazoiwEM6EZOfBDAysK26y GFkZGlu Ou7mc3P7w705NEDpRQYdlV6 4Ud4txEsrWNPrsRYNbR6wjr vpm8vfioekVfZgRRBmLTy8I In1DJJs uAlvEpHtDSA1FvV1LNW8rYU ziK8zlJerzlnslE7yVim+T3 E6uPP4xGVcwYkvmMY+PC90c n15K8Vb RqjrFfp9ZNXpJNB3nAZ1gK3 sCTRzGBlql6V8oAX8Y4Tttt Szok2fv0moDJGzLFmhD67qt YGmu7Y6 ZZEkeXD5TFFozOtcKcUadV4 3Oyc+TTTnwJhks8MvXexjy0 pbk1uvcOj8FzIjDWZzieIwr WduPSJ0 l6EbXr00D99vZQutFSKaPWP bEAUwUFRezXwlax2fuL7wOv 8+ZOWxpCD1nBW3cL8dLaIfZ mQ3QFbk S599BnYqfKPwLmwav7cxr9e xeXu9YxNtMXEtnsSnmBevYK W6a0KuBr91K1QyyDnts2NbN os1ce38 rWOwz6N7zQK2O8VzDLGjyau hxPPjoJfpEQ1rFFFesoxyPR AqyB0kVCVoR1x5FsQxReP8N MxaE3Cc exJ2QYFfbCAoZVAfrRMZgE1 dsptmc3nadnbqPdHlYJUbYB m0PFj6AMJrwBoeLwDmPRY6C xS1DEE2 dDQmtY2inCqnfjeffH4pEhf +ZAo6d6pwzLVjJJ7vaNJ1QM 14DQ72sMIfc8E0rCE2O4MhY GRpbmct bvqipVM3MXWiYVNqmV78Xi6 woFmnNj5eDNBbMVK2HKGhdJ KsU6KwxR7kIuCvYJKsLNUuL 3RleHQt BOezR056ULaoRsK6MHBxqlB wU8AnFTAmiRxfMeS6x3P3Ci 5RPY37WT37CG58tYUry8W1k FO8F2Pb TTPttwikezvbkLK0IUAvXLG kqT88Bb4ftItxJz8tFFSvHN W5LXDhrWKiY8QaxG5yPtYmU DAwMDAw P1UamLKeMLjfV552KRwzTsC 0XHRueaUmC3NmDKBsqIeaWw C6e1V7Ki2GJl16PZ84WA30b BPkp0M2 cPZ3I5UfUKAsoqjwvurdqAA 0IYIxEMJndI08Vk6wvXbaOs 9uXDVkCSZ9RDFcjLHcP5Rsn D5yOyYv DLFhSEVaC3RllULrFWcnL39 3EXycMuT6LVHbauOuA4ZhOC EyjZapEzY4q2S3Ex2GCKerq tg8Y9Vu PjwvdHI+CY41BCIjHX89gWO sgGRlp7oclUi9MpFjKQKhBF U1gOnuJThaw7EyYSBqJ08mp DSdv1T3 IGNv (more content not included)... Normal [facility] IntraOperative Documentson 0 10-01-2021 IntraOperative Documents [id number] D:127 Normal [facility] Main OR Intraoperative Recor don 09-29-2021 Main OR Intraoperative Record IntraOp Document Type FT Summary Primary Physician: Marlys LOPEZ MD Finalized Date/Time: 09/29/21 12:13:49 Pt. Name: DAI العلي /Sex: 1945 Male Med Rec #: [id number] Physician: Marlys LOPEZ MD Financial #: [id number] Pt. Type: O Room/Bed: / Admit/Disch: 09/23/21 10:57:48 - 09/23/21 23:59:59 Institution: Case Times FT Entry 1 Patient Times In Room 09/23/21 12:28:00 Out Room 09/23/21 12:53:00 Procedure Times Start 09/23/21 12:36:00 Stop 09/23/21 12:50:00 Anesthesia Times Start 09/23/21 12:28:00 Stop 09/23/21 12:53:00 Time at [facility] 09/23/21 12:46:00 Last Modified By: Mayi Ness RN 09/23/21 12:53:31 General Comments: 1239-EGD completed/AW RN 1241-Colonoscopy started/AW RN 09/29/21 chart open to review and send charges. dameon troy rn Case Attendance FT Entry 1 Entry 2 Entry 3 Case Attendee Sofy Alvarez, Marlys White MD Role Performed Anesthesiologist Scrub - Primary Surgeon - Primary Real Estate Sales Supervisor Time In 09/23/21 12:28:00 09/23/21 12:36:00 09/23/21 12:28:00 Time Out 09/23/21 12:53:00 09/23/21 12:53:00 09/23/21 12:53:00 Procedure EGD AND COLONOSCOPY(.) EGD AND COLONOSCOPY(.) EGD AND COLONOSCOPY(.) Comments Dr. Chanel supervising Colonoscopy Last Modified By: Grover GIVENS, Mayi Ness RN, Mayi Dixon RN 09/23/21 12:53:36 09/23/21 12:53:36 09/23/21 12:53:36 Entry 4 Entry 5 Case Attendee Hesham SLOAN, Tawana Ness RN, Mayi Crouch Role Performed Scrub - Primary Men'S Designer - Primary Time In 09/23/21 12:28:00 09/23/21 12:28:00 Time Out 09/23/21 12:53:00 09/23/21 12:53:00 Procedure EGD AND COLONOSCOPY(.) EGD AND COLONOSCOPY(.) Comments EGD Last Modified By: Grover GIVENS, Mayi Ness RN, Mayi 09/23/21 12:53:36 09/23/21 12:53:36 Perioperative Protocols FT Pre-Care Text: Implements protective measures prior to operative or invasive procedure, confirms identity before the operative or invasive procedure, verifies operative procedure, surgical site, and laterality Entry 1 Procedure(s) EGD AND COLONOSCOPY(.) Patient Identity Birthday, ID Band Verified (select at Check, Patient least 2): Participation Consents / H and P Anesthesia Consent, Operative Site N/A Verified HandP, Surgery/Procedure Marking Verified Consent Surgical Site No Laterality Verified n/a Verified Procedure Verified Yes Correct Patient Yes Position Verified Availability Equipment, Medication Prep Dry n/a Verified (If Applicable) PreOp Antibiotic No Time Out Sofy Alvarez, Given Participants JOHN BROCK, Hesham Frankel CST, Grover Shin RN, Angela Time Out Complete 09/23/21 12:35:00 Outcomes Met? Yes Last Modified By: Mayi Ness RN 09/23/21 12:37:38 Post-Care Text: The patient is free from signs and symptoms of injury caused by extraneous objects Allergy Information FT Pre-Care Text: Verifies allergies Entry 1 Allergies Reviewed? Yes Allergies Reviewed Self/Patient With Outcomes Met? Yes Last Modified By: Mayi Ness RN 09/23/21 12:32:59 Post-Care Text: The patient received appropriate medication(s) safely administered during the perioperative period Surgical Procedures FT Entry 1 Procedure Description Procedure EGD AND COLONOSCOPY Modifiers . Surgeon Description EGD with gastric and Basilio's esophagus biopsies. Colonoscopy with ascending colon polypectomy and transverse colon polypectomy Primary Procedure Yes Primary Surgeon Marlys LOPEZ MD Start 09/23/21 12:36:00 Stop 09/23/21 12:50:00 Anesthesia Type General Surgical Service Gastroenterology Wound Class 2 - Clean-Contaminated Last Modified By: Mayi Ness RN 09/23/21 12:52:34 General Case Data FT Pre-Care Text: Classifies surgical wound, implements aseptic technique, initiates traffic control Entry 1 Case Information OR ENDO 1 FT Case Level Level 2 Wound Class 2 - Clean-Contaminated Specialty Gastroenterology ASA Class 3 Preop Diagnosis ANEMIA Postop Same As Preop No Postop Diagnosis EGD- esophagitis, Outcomes Met? Yes gastric erosions,Basilio's esophagus . Colonoscopy-ascending colon polyp, transverse colon polyp , diverticulosis and internal hemorrhoids. Last Modified By: Mayi Ness RN 09/23/21 12:54:04 Post-Care Text: The patient is free from signs and symptoms of infection Skin Assessment (Pre Procedure) FT Pre-Care Text: Implements protective measures to prevent skin/ tissue injury due to thermal or mechanical sources Evaluates for signs and symptoms of physical injury to skin and tissue Entry 1 Skin Integrity Intact, [place], Warm, and Skin Abnormality No Dry Outcomes Met? Yes Last Modified By: Mayi Ness RN 09/23/21 12:33:30 Post-Care Text: The patient is free from signs and symptoms of injury caused by extraneous objects Patient Positioning FT Pre-Care Text: Identifies physical alterations that require additional preca (more content not included)... Normal [facility] Progress Note-Physicianon Progress Note-Physician Patient: DAI العلي Age: 76 years Sex: Male : 1945 Associated Diagnoses: None Author: Michael Chanel Jr, DO Postoperative Information Post Operative Note: Post Anesthesia Care Unit. Anesthetic utilized: Monitored anesthesia care. Health Status Allergies: Allergic Reactions (Selected) No Known Allergies Problem list: All Problems Anemia / SNOMED CT 192373970 / Confirmed Essential hypertension / SNOMED CT 88685481 / Confirmed Familial hypercholesterolemia / SNOMED CT 6975321728 / Confirmed Hyponatremia / SNOMED CT 764327598 / Confirmed Lung nodules / SNOMED CT 6509150159 / Confirmed BPH associated with nocturia / SNOMED CT 8116721424 / Confirmed Current smoker / SNOMED CT 548373010 / Confirmed Physical Examination Vital Signs 09/23/2021 13:25 EDT Heart Rate Monitored 61 bpm Respiratory Rate Monitored 16 br/min Systolic Blood Pressure 156 mmHg HI Diastolic Blood Pressure 74 mmHg Blood Pressure Location Left arm SpO2 99 % 09/23/2021 13:10 EDT Heart Rate Monitored 80 bpm Respiratory Rate Monitored 12 br/min Systolic Blood Pressure 143 mmHg HI Diastolic Blood Pressure 78 mmHg Blood Pressure Location Left arm SpO2 96 % 09/23/2021 13:05 EDT Heart Rate Monitored 75 bpm Respiratory Rate Monitored 11 br/min Systolic Blood Pressure 137 mmHg Diastolic Blood Pressure 85 mmHg Blood Pressure Location Left arm SpO2 97 % 09/23/2021 13:00 EDT Heart Rate Monitored 80 bpm Respiratory Rate Monitored 16 br/min Systolic Blood Pressure 102 mmHg Diastolic Blood Pressure 64 mmHg Blood Pressure Location Left arm SpO2 93 % 09/23/2021 12:53 EDT Temperature Temporal Artery 36.7 DegC Heart Rate Monitored 90 bpm Respiratory Rate Monitored 15 br/min Systolic Blood Pressure 88 mmHg LOW Diastolic Blood Pressure 61 mmHg Blood Pressure Location Left arm SpO2 95 % 09/23/2021 12:50 EDT Heart Rate Monitored 84 bpm bpm SpO2 100 % % 09/23/2021 12:49 EDT Systolic Blood Pressure 96 mmHg mmHg Diastolic Blood Pressure 60 mmHg mmHg 09/23/2021 12:45 EDT Heart Rate Monitored 93 bpm bpm Respiratory Rate Monitored 16 br/min br/min Systolic Blood Pressure 90 mmHg mmHg Diastolic Blood Pressure 57 mmHg mmHg SpO2 99 % % 09/23/2021 12:41 EDT Systolic Blood Pressure 88 mmHg mmHg Diastolic Blood Pressure 57 mmHg mmHg 09/23/2021 12:40 EDT Heart Rate Monitored 92 bpm bpm Respiratory Rate Monitored 16 br/min br/min SpO2 100 % % 09/23/2021 12:37 EDT Systolic Blood Pressure 102 mmHg mmHg Diastolic Blood Pressure 61 mmHg mmHg 09/23/2021 12:35 EDT Heart Rate Monitored 56 bpm bpm Respiratory Rate Monitored 16 br/min br/min SpO2 100 % % 09/23/2021 12:33 EDT Systolic Blood Pressure 158 mmHg mmHg Diastolic Blood Pressure 75 mmHg mmHg 09/23/2021 12:30 EDT Heart Rate Monitored 69 bpm bpm Respiratory Rate Monitored 16 br/min br/min SpO2 98 % % 09/23/2021 12:29 EDT Systolic Blood Pressure 156 mmHg mmHg Diastolic Blood Pressure 66 mmHg mmHg 09/23/2021 11:55 EDT Temperature Temporal Artery 36.7 DegC Heart Rate Monitored 89 bpm Respiratory Rate Monitored 12 br/min Systolic Blood Pressure 149 mmHg HI Diastolic Blood Pressure 75 mmHg Blood Pressure Location Left arm SpO2 99 % Vital Signs (last 24 hrs) Last Charted Resp Rate 16 br/min (SEP 23 13:25) SBP H 156mmHg (SEP 23 13:25) DBP 74 mmHg (SEP 23 13:) SpO2 99 % (SEP 23:) Weight 78.3 kg (SEP 23 11:47) BMI 24.17 (SEP 23 11:47) Documented vital signs Pain assessment: Pain Assessment 09/23/2021 13:25 EDT Patient Preferred Pain Tool Numeric rating Numeric Pain Scale 0 = No pain Numeric Pain Score 0 09/23/2021 13:05 EDT Patient Preferred Pain Tool Numeric rating Numeric Pain Scale 0 = No pain Numeric Pain Score 0 . General: Alert and oriented, No acute distress. Respiratory: Lungs are clear to auscultation. Cardiovascular: Normal rate, Regular rhythm. Neurologic: Normal sensory. Review / Management Condition: Stable. Assessment Anesthetic outcome No anesthetic complications noted. Adequate pain relief. TOLERATING PO INTAKE. voiding w/o diff.. No Complaint of nausea and vomiting. Plan Transfer/ Discharge: Condition stable. Normal [facility] Comment on above: Result Comment: Elec tronically Signed By: Michael Chanel Jr, DO\.br\Date and Time Signed: 09/29/21 16:30 EDT Progress Note-Physician Patient: DAI العلي Age: 76 years Sex: Male : 1945 Associated Diagnoses: None Author: Michael Chanel Jr, DO Preoperative Information Anesthesia Preop Information NPO 8 HOURS EXCEPT GI PREP AT LEAST 4 HOURS PRIOR TO PROCEDURE Anesthesia history: Patient history: No prior anesthesia problems. Re-evaluation prior to induction: Initial evaluation reviewed: No significant change. Anesthesia results Review of Systems Cardiovascular: Negative. Respiratory: Negative. Health Status Allergies: No active allergies have been recorded. Current medications: (Selected) Prescriptions Prescribed Plenvu oral powder for reconstitution: See Instructions, 1 EA, Refill(s) 0, Per physicians instruction's prior to colonoscopy Mail order pharmacy to sent to patient's home in [place]., [facility], 180, cm, 09/03/21 13:11:00 EDT, Height/Length Dosing, 78.3, kg, 09/03/21 13:11:0... Documented Medications Documented Aleve: mg, Oral, q12hr, Refills(s) 0, Pain Citracal Maximum + D: Oral, BID, Refill(s) 0, Prophylaxis Turmeric: mg, Oral, Daily, Refill(s) 0, Prophylaxis Vitamin B12: Refills(s) 0, Prophylaxis Vitamin B6: Daily, Refills(s) 0, Prophylaxis Vitamin C: Daily, Refills(s) 0, Prophylaxis Vitamin D3 1000 intl units oral tablet: 25 mcg = 1 tab(s), Oral, Daily, # 30 tab(s), Refills(s) 0, Prophylaxis echinacea: Refills(s) 0, Prophylaxis lisinopril 40 mg Tab: mg tab(s), Oral, Daily, Refills(s) 0, High blood pressure milk thistle: Refill(s) 0, Prophylaxis niacin: Oral, Refills(s) 0, Prophylaxis potassium acetate: Refills(s) 0, Prophylaxis sodium chloride 1 g Tab: Refills(s) 0, Prophylaxis, Home Medications (14) Active Aleve , Oral, q12hr Citracal Maximum + D , Oral, BID echinacea lisinopril 40 mg Tab , Oral, Daily milk thistle niacin , Oral Plenvu oral powder for reconstitution See Instructions potassium acetate sodium chloride 1 g Tab Turmeric , Oral, Daily Vitamin B12 Vitamin B6 , Daily Vitamin C , Daily Vitamin D3 1000 intl units oral tablet 25 mcg = 1 tab(s), Oral, Daily Problem list: All Problems Anemia / SNOMED CT 757928521 / Confirmed Essential hypertension / SNOMED CT 08929334 / Confirmed Familial hypercholesterolemia / SNOMED CT 5719074875 / Confirmed Hyponatremia / SNOMED CT 728242493 / Confirmed Lung nodules / SNOMED CT 9274531969 / Confirmed BPH associated with nocturia / SNOMED CT 4316899477 / Confirmed Current smoker / SNOMED CT 101446920 / Confirmed Histories Past Medical History: Active Hyponatremia (773736466) Lung nodules (6361904303) BPH associated with nocturia (4107087353) Current smoker (487657506) Social History Social & Psychosocial Habits Tobacco 09/03/2021 Tobacco Use: 10 or more cigarettes (/ . Physical Examination Airway: Mallampati classification: II (soft palate, fauces, uvula visible). Respiratory: Lungs are clear to auscultation. Cardiovascular: Regular rhythm. Neurologic: Alert, Oriented. Plan [place] [employer] (ASA) physical status classification: Class II. Anesthetic Preoperative Plan Anesthesia: General. . Anesthetic plan, risks, benefits, and alternatives discussed with the patient and/or family. Communication: face to face with (patient 5 minutes, Patient educated on smoking cesstation). [facility] Comment on above: Result Comment: Elec tronically Signed By: Michael Chanel Jr, DO\.ely\Date and Time Signed: 09/29/21 07:59 EDT Postoperative Documentson Postoperative Documents [id number] CD:127 [facility] Consenton 09-24-2021 Consent [id number] D:127 [facility] Discharge Instructionson Discharge Instructions [id number] D:127 [facility] IntraOperative Documentson 0 09-24-2021 IntraOperative Documents [id number]#1.00C D:127 [facility] IntraOperative Documents [id number] D:127 [facility] Consent for Treatmenton 08-27 Consent for Treatment [id number] D:127 [facility] Endoscopic Procedure Report - Otheron 09-23-2021 Endoscopic Procedure Report - Other Patient: DAI العلي Age: 76 years Sex: Male : 1945 Associated Diagnoses: None Author: Marlys LOPEZ MD Pre-Procedure Procedure Date 09/23/2021 12:51:00 . Procedure Type: Colonoscopy with removal of tumor(s), polyp(s), or other lesion(s) by cold snare technique. Procedure provider Performed by Marlys Lopez MD. Current history and physical Documented on chart. Colorectal neoplasm risk assessment Average risk. Informed Consent After discussing the rationale, risks and benefits, and alternatives to this procedure, the patient provided signed consent for the procedure. Pre-procedure diagnosis: Iron deficiency anemia, unexplained. Medications Anticoagulant/antiplate let None. ASA Classification: Class III. . Procedure The procedure was performed in the hospital. Rectal exam was performed and was normal with no masses palpated. The patient was positioned in the left lateral decubitus position and a digital rectal exam was performed.. Endoscope type used was an adult-size. The endoscope was lubricated then introduced through the anus. The scope was advanced to the cecum verified by photographing the appendiceal orifice, verified by photographing the ileocecal valve, verified by transillumination, The time to the cecum was 5 minutes, The withdrawal time was 9 minutes. No difficulties encountered during the procedure. The bowel preparation quality was adequate (see polyps greater than or equal to 6 millimeters). The patient tolerated the procedure well. Findings 1. Sessile polyp, 5 mm, in the ascending, removed completely with cold snare 2. Sessile polyp, 5 mm, in the transverse, removed completely with cold snare 3. Moderate diverticular disease in the sigmoid and descending colon 4. Moderate nonbleeding internal hemorrhoids Images Procedure images: [id number]_hd_video__[id number].jpg [id number]_hd_video__2 [id number].jpg . Post-Procedure Complications: none. Estimated blood loss: none. Specimens: sent to pathology. Devices/ implants: none left in place. Impression and Plan 1. Sessile polyp, 5 mm, in the ascending, removed completely with cold snare 2. Sessile polyp, 5 mm, in the transverse, removed completely with cold snare 3. Moderate diverticular disease in the sigmoid and descending colon 4. Moderate nonbleeding internal hemorrhoids Recommendations: Repeat colonoscopy:: In 5 years, Pending pathology results. Follow-up:: Clinic follow-up in 1-2 weeks. Diet:: Resume previous diet. Medication resumption:: Continue current medications. Return to activities:: After 24 hours. Normal [facility] Comment on above: Result Comment: Elec tronically Signed By: Marlys LOPEZ MD\.br\Date and Time Signed: 09/23/21 12:52 EDT Other Comment: Elvira henning Attachment - attachment storage system not supported [id number] Can be viewed in source systemMissing Attachment - attachment storage system not supported [id number] Can be viewed in source system Endoscopic Procedure Report - Other Patient: DAI العلي Age: 76 years Sex: Male : 1945 Associated Diagnoses: None Author: Marlys LOPEZ MD Pre-Procedure Procedure Date 09/23/2021 12:39:00 . Procedure Type: Esophagogastroduodenosc opy. Procedure provider Performed by Marlys Lopez MD. Current history and physical Documented on chart. Informed Consent After discussing the rationale, risks and benefits, and alternatives to this procedure, the patient provided signed consent for the procedure. Pre-procedure diagnosis: Diagnostic: Anemia. Medications Anticoagulant/antiplate let No anticoagulation or antiplatelet. ASA Classification: Class III. . Monitoring: See anesthesia record. . Procedure The procedure was performed in the hospital. See anesthesia record for sedation given during procedure. The patient was positioned starting in the left lateral decubitus position and with safety measures. Endoscope type used was an adult-size, introduced orally, advanced to the 2nd portion of the duodenum. No difficulty was encountered during the procedure. Views were good. Gastric biopsies were taken of the fundus and of the antrum. The patient tolerated the procedure well. Findings 1. Mild esophagitis, LA A, short segment Basilio's esophagus of, 3 tongues, each 1 cm, biopsied 2. Mild gastric erosions, random biopsies obtained to rule out H. pylori 3. Normal duodenum Images Procedure images: [id number]_video_[id number].jpg [id number]_hd_video__2 [id number]__[id number].jpg Rec1_hd_video__2 [id number]__[id number].jpg Rec1_hd_video__2 [id number]__[id number].jpg . Post-Procedure Complications: none. Estimated blood loss: none. Specimens: sent to pathology. Devices/ implants: none left in place. Impression and Plan 1. Mild esophagitis, LA A, short segment Basilio's esophagus of, 3 tongues, each 1 cm, biopsied 2. Mild gastric erosions, random biopsies obtained to rule out H. pylori Recommendations: 1. Awaiting pathology report. 2. GI clinic follow-up in 2 weeks [facility] Comment on above: Result Comment: Elec tronically Signed By: Marlys LOPEZ MD\.br\Date and Time Signed: 09/23/21 12:40 EDT Other Comment: Elvira henning Attachment - attachment storage system not supported [id number] Can be viewed in source systemMissing Attachment - attachment storage system not supported [id number] Can be viewed in source [facility] Attachment - attachment storage system not supported [id number] Can be viewed in source systemMissing Attachment - attachment storage system not supported [id number] Can be viewed in source system Inpatient Patient Summaryon 09-23-2021 Inpatient Patient Summary [address] [address] [facility] Clinical Discharge Instructions PERSON INFORMATION Name: DAI العلي PHYSICIANS Admitting Physician: Marlys LOPEZ MD Attending Physician: Marlys LOPEZ MD PCP: SHAY PINEDA DO Discharge Diagnosis: Anemia Comment: PATIENT EDUCATION INFORMATION Instructions: Esophagitis; Upper Endoscopy, Adult, Care After; Diverticulosis; Colon Polyps; Colonoscopy, Care After Surgery John (Custom) Medication Leaflets: Follow up: With: Address: When: Marlys LOPEZ [address] [place] [address] [place] [phone] Business (1) Comments: Call for any problems. Office will call you if follow up is needed. MEDICATION LIST New Medications [facility], [address] [place], [place] [id number], [phone] omeprazole (omeprazole 40 mg Cap-DR) 1 Capsules By Mouth every day. Refills: 2. Medications to Continue Taking That Have Changed Other Medications START: milk thistle 175 Milligram. START: niacin 500 Milligram By Mouth. START: Turmeric 550 Milligram By Mouth every day. Medications to Continue with No Changes Other Medications ascorbic acid (Vitamin C) every day. calcium-vitamin D (Citracal Maximum + D) By Mouth 2 times a day. cholecalciferol (Vitamin D3 1000 intl units oral tablet) 1 Tablets By Mouth every day. cyanocobalamin (Vitamin B12) echinacea lisinopril (lisinopril 40 mg Tab) By Mouth every day. naproxen (Aleve) By Mouth every 12 hours. potassium acetate pyridoxine (Vitamin B6) every day. sodium chloride (sodium chloride 1 g Tab) Comment: Erika [facility] Main OR PACU I Recordon 08-27 Main OR PACU I Record PACU Phase I Docum ent Type FT Summary Primary Physician: Marlys LOPEZ MD Finalized Date/Time: 09/23/21 13:39:44 Pt. Name: العليDAI/Sex: 1945 Male Med Rec #: [id number] Physician: Marlys LOPEZ MD Financial #: [id number] Pt. Type: O Room/Bed: / Admit/Disch: 09/23/21 10:57:48 - Institution: Case Times PACU I FT Pre-Care Text: Identifies barriers to communication and implements measures to provide psychological support Develops individualized plan of care, and ensures continuity of care Maintains patient's dignity and privacy, and maintains patient confidentiality Identifies and reports philosophical, cultural, and spiritual beliefs and values Identifies individual values and wishes concerning care Implements aseptic technique, and administers prescribed antibiotic therapy and immunizing agents as ordered Evaluates postoperative tissue perfusion Implements thermoregulation measures, and monitors body temperature Evaluates postoperative respiratory status Evaluates postoperative cardiac status Evaluates postoperative neurological status Assesses pain control, collaborated in initiating patient-controlled analgesia and implements alternative methods of pain control Verifies allergies, administers prescribed medications and solutions, evaluates response to medications Entry 1 In PACU I 09/23/21 12:53:00 Discharge from PACU 09/23/21 13:33:00 I Outcomes Met? Yes Last Modified By: Laura Gross RN 09/23/21 13:39:32 Post-Care Text: The patient demonstrates knowledge of the expected response to the operative or invasive procedure The patient's care is consistent with the individualized perioperative plan of care The patient's right to privacy is maintained The patient's value system, lifestyle, ethnicity, and culture are considered, respected, and incorporated into the perioperative plan of care The patient participates in decisions affecting his or her perioperative plan of care The patient is free from signs and symptoms of infection The patient has wound/tissue perfusion consistent with or improved from baseline levels established preoperatively The patient is at or returning to normothermia at the conclusion of the immediate postoperative period The patient's respiratory function is consistent with or improved from baseline levels established preoperatively The patient's cardiovascular status is consistent with or improved from baseline levels established preoperatively The patient's cardiovascular status is consistent with or improved from baseline levels established preoperatively The patient demonstrates and/or reports adequate pain control throughout the perioperative period The patient received appropriate medication(s), safely administered during the perioperative period Acuity Level PACU I FT Entry 1 Start Time 09/23/21 12:53:00 Stop Time 09/23/21 13:33:00 Acuity Level Acuity Level I Last Modified By: Laura Gross RN 09/23/21 13:39:41 Finalized By: Laura Gross RN Document Signatures Signed By: Laura Gross RN 09/23/21 13:39 Normal [facility] Main OR Preoperative Recordo n 09-23-2021 Main OR Preoperative Record Holding Area Document Type FT Summary Primary Physician: Marlys LOPEZ MD Finalized Date/Time: 09/23/21 11:49:54 Pt. Name: العليDAI D.O.B./Sex: 1945 Male Med Rec #: [id number] Physician: Marlys LOPEZ MD Financial #: [id number] Pt. Type: O Room/Bed: / Admit/Disch: 09/23/21 10:57:48 - Institution: Case Times Holding FT Pre-Care Text: Verifies consent for planned procedure, identifies individual values and wishes concerning care, includes family members in perioperative teaching Secures patient's records' belongings, and valuables, maintains patient's dignity and privacy, and maintains patient confidentiality Entry 1 In Holding 09/23/21 11:45:00 Outcomes Met? Yes Last Modified By: Kenny Burris RN 09/23/21 11:48:20 Post-Care Text: The patient participates in decisions affecting his or her perioperative plan of care The patient's right to privacy is maintained Surgery Checklist FT Entry 1 Patient Birthday, ID Band Procedure History and Physical, Identification: Check, Patient Verification: Surgical Consent, With Participation Patient NPO after Midnight: No Date/Time: 09/23/21 08:00:00 Results Reviewed yellow liquid Personal Items: Glasses Comments: Personal Items clothing, shoes, glasses Limitations: none Comment: Complaints of Pain: No Pain Comment: pt denies any pain at this time Operative Site n/a Marked By: n/a Marking: Location: n/a Availability Equipment Verified: Does Patient Smoke Yes If Yes to Smoking. 1/2 pack per day Cigars or Cigarettes. How much per day? Patient states Yes Comment - Adult - Annetta postop adult Supervision supervision available Case Cancelled in No Holding Area see comments below for reason Last Modified By: Kenny Burris RN 09/23/21 11:49:52 General Comments: pt finished bowel prep at 0800, per patient nothing to eat or drink since MSRN Finalized By: Kenny Burris RN Document Signatures Signed By: Kenny Burris RN 09/23/21 11:49 Normal [facility] Monitor Recordon 09-23-2021 Monitor Record [id number] CD:127 Normal [facility] Outpatient Surgery Discharge Instructionon 09-23-2021 Outpatient Surgery Discharge Instruction [place] [id number] Patient Discharge Instructions PERSON INFORMATION Name: DAI العلي Date of : 1945 Current Date: 09/23/2021 13:01:52 PHYSICIANS Admitting Physician: Marlys LOPEZ MD Discharge Diagnosis: Anemia DAI العلي has been given the following list of follow-up instructions, prescriptions, and patient education materials: PATIENT FOLLOW-UP INFORMATION Diet: Regular Discharge Activity: Resume normal activities in 24 hours Discharge Restrictions: No driving for 24 hrs, Do not operate machinery or tools, Do not make important decisions for 24 hours Additional Instructions: Omeprazole 40 mg p.o. daily Avoid NSAIDs IF UNABLE TO CONTACT YOUR PHYSICIAN AND YOU FEEL IT IS AN EMERGENCY, GO TO THE NEAREST EMERGENCY ROOM OR CALL 911 I DAI العلي, have received the attached patient education materials/instructions and have verbalized understanding: May we do a follow up call? Yes No I was present when discharge instructions were given Patient Signature Date Clinican/Nurse Signature _ Date Follow up: With: Address: When: Marlys LOPEZ [address] [place] [address] [address] [place], [place] [phone] Business (1) Comments: Call for any problems. Office will call you if follow up is needed. Pharmacy Information: [facility] You may receive a survey from [email or web address] asking you to rate your care experience. Your feedback is important and will help us understand what we do well and how we can improve the quality of care we provide to you, your loved ones and our community. It?s an honor to serve you. Thank you for choosing [facility] HERE ARE THE MEDICATION CHANGES THAT OCCURRED DURING YOUR HOSPITAL STAY New Medications [facility], [address] [place], [place] [id number], [phone] omeprazole (omeprazole 40 mg Cap-DR) 1 Capsules By Mouth every day. Refills: 2. Medications to Continue Taking That Have Changed Other Medications START: milk thistle 175 Milligram. START: niacin 500 Milligram By Mouth. START: Turmeric 550 Milligram By Mouth every day. Medications to Continue with No Changes Other Medications ascorbic acid (Vitamin C) every day. calcium-vitamin D (Citracal Maximum + D) By Mouth 2 times a day. cholecalciferol (Vitamin D3 1000 intl units oral tablet) 1 Tablets By Mouth every day. cyanocobalamin (Vitamin B12) echinacea lisinopril (lisinopril 40 mg Tab) By Mouth every day. naproxen (Aleve) By Mouth every 12 hours. potassium acetate pyridoxine (Vitamin B6) every day. sodium chloride (sodium chloride 1 g Tab) PATIENT EDUCATION INFORMATION Instructions: Esophagitis Esophagitis is inflammation of the esophagus. The esophagus is the tube that carries food from your mouth to your stomach. Esophagitis can cause soreness or pain in the esophagus. This condition can make it difficult and painful to swallow. What are the causes? Most causes of esophagitis are not serious. Common causes of this condition include: ? Gastroesophageal reflux disease (GERD). This is when stomach contents move back up into the esophagus (reflux). ? Repeated vomiting. ? An allergic reaction, especially caused by food allergies (eosinophilic esophagitis). ? Injury to the esophagus by swallowing large pills with or without water, or swallowing certain types of medicines. ? Swallowing (ingesting) harmful chemicals, such as household cleaning products. ? Heavy alcohol use. ? An infection of the esophagus. This most often occurs in people who have a weakened immune system. ? Radiation or chemotherapy treatment for cancer. ? Certain diseases such as sarcoidosis, Crohn's disease, and scleroderma. What are the signs or symptoms? Symptoms of this condition include: ? Difficult or painful swallowing. ? Pain with swallowing acidic liquids, such as citrus juices. ? Pain with burping. ? Chest pain. ? Difficulty breathing. ? Nausea. ? Vomiting. ? Pain in the abdomen. ? Weight loss. ? Ulcers in the mouth. ? Patches of white material in the mouth (candidiasis). ? Fever. ? Coughing up blood or vomiting blood. ? Stool that is black, tarry, or bright red. How is this diagnosed? Your health care provider will take a medical history and perform a physical exam. You may also have other tests, including: ? An endoscopy to examine your esophagus and stomach with a small flexible tube with a camera. ? A test that measures the acidity level in your esophagus. ? A test t (more content not included)... Normal [facility] Patient Education - Texton 0 09-23-2021 Patient Education - Text Colonoscopy Care After Surgery Please read the instructions outlined below and refer to this sheet in the next few weeks. These discharge instructions provide you with general information on caring for yourself after you leave the hospital. Your doctor may also give you specific instructions. While your treatment has been planned according to the most current medical practices available, unavoidable complications occasionally occur. If you have any problems or questions after discharge, please call your doctor. ACTIVITY You may resume your regular activity, but move at a slower pace for the next 24 hours. Take frequent rest periods for the next 24 hours. Walking will help get rid of the air and reduce the bloated feeling in your abdomen (belly). No driving for 24 hours (because of the anesthesia (medicine) used during the test). You may shower. Do not sign any important legal documents or operate any machinery for 24 hours (because of the anesthesia used during the test). NUTRITION Drink plenty of fluids. You may resume your normal diet as instructed by your doctor. Begin with a light meal and progress to your normal diet. Heavy or fried foods are harder to digest and may make you feel nauseated (sick to your stomach). Avoid alcoholic beverages for 24 hours or as instructed. MEDICATIONS You may resume your normal medications unless your doctor tells you otherwise. WHAT YOU CAN EXPECT TODAY Some feelings of bloating in the abdomen. Passage of more gas than usual. Spotting of blood in your stool or on the toilet paper. FOLLOW-UP Your doctor will discuss the results of your test with you. SEEK IMMEDIATE MEDICAL ATTENTION IF: There is more than a spotting of blood in your stool. There is abdominal distention (your abdomen is swollen). There is vomiting. You have a temperature over 101.5 F. There is abdominal pain or discomfort that is severe or gets worse throughout the day. Gastroenterology Esophagitis Esophagitis is inflammation of the esophagus. The esophagus is the tube that carries food from your mouth to your stomach. Esophagitis can cause soreness or pain in the esophagus. This condition can make it difficult and painful to swallow. What are the causes? Most causes of esophagitis are not serious. Common causes of this condition include: ? Gastroesophageal reflux disease (GERD). This is when stomach contents move back up into the esophagus (reflux). ? Repeated vomiting. ? An allergic reaction, especially caused by food allergies (eosinophilic esophagitis). ? Injury to the esophagus by swallowing large pills with or without water, or swallowing certain types of medicines. ? Swallowing (ingesting) harmful chemicals, such as household cleaning products. ? Heavy alcohol use. ? An infection of the esophagus. This most often occurs in people who have a weakened immune system. ? Radiation or chemotherapy treatment for cancer. ? Certain diseases such as sarcoidosis, Crohn's disease, and scleroderma. What are the signs or symptoms? Symptoms of this condition include: ? Difficult or painful swallowing. ? Pain with swallowing acidic liquids, such as citrus juices. ? Pain with burping. ? Chest pain. ? Difficulty breathing. ? Nausea. ? Vomiting. ? Pain in the abdomen. ? Weight loss. ? Ulcers in the mouth. ? Patches of white material in the mouth (candidiasis). ? Fever. ? Coughing up blood or vomiting blood. ? Stool that is black, tarry, or bright red. How is this diagnosed? Your health care provider will take a medical history and perform a physical exam. You may also have other tests, including: ? An endoscopy to examine your esophagus and stomach with a small flexible tube with a camera. ? A test that measures the acidity level in your esophagus. ? A test that measures how much pressure is on your esophagus. ? A barium swallow or modified barium swallow to show the shape, size, and functioning of your esophagus. ? Allergy tests. How is this treated? Treatment for this condition depends on the cause of your esophagitis. In some cases, steroids or other medicines may be given to help relieve your symptoms or to treat the underlying cause of your condition. You may have to make some lifestyle changes, such as: ? Avoiding alcohol. ? Quitting smoking. ? Changing your diet. ? Exercising. ? Changing your sleep habits and your sleep environment. Follow these instructions at home: Medicines ? Take [id number] and prescription medicines only as told by your health care provider. ? Do not take aspirin, ibuprofen, or other NSAIDs unless your health care provider told you to do so. ? If you have trouble taking pills: ? Use a pill splitter to decrease the size of the pill. This will decrease the chance of the pill getting stuck or injuring your esophagus. ? Drink water after you take a pill. Eating and drinking (Inserted Image. (more content not included)... Normal [facility] Consent for Procedure/Surger yon 09-04-2021 Consent for Procedure/Surgery [id number] CD:127 [facility] Patient Correspondenceon Patient Correspondence [id number] D:127 [facility] Ambulatory Visit Summaryon 0 09-03-2021 Ambulatory Visit Summary العلي, DAI Yu :1945 Visit Date:09/03/2021 Ambulatory Visit Instructions Your Diagnosis Anemia Your Care Team Attending Physician - Marlys LOPEZ MD Primary Care Physician - SHAY PINEDA DO Referring Physician - SHAY PINEDA DO This Is Your Medications List Contact prescribing physician if questions or concerns Turmeric ascorbic acid (Vitamin C) calcium-vitamin D (Citracal Maximum + D) cholecalciferol (Vitamin D3 1000 intl units oral tablet) cyanocobalamin (Vitamin B12) echinacea lisinopril (lisinopril 40 mg Tab) milk thistle naproxen (Aleve) niacin potassium acetate pyridoxine (Vitamin B6) sodium chloride (sodium chloride 1 g Tab) Discharge Vitals Heart Rate (Peripheral) 78 Respiratory Rate 16 Blood Pressure 108/64 Height 180 cm Height 180.0 cm Weight 78.3 kg Weight 78.3 kg BMI 24.17 What to do next Scheduled Follow-Up Appointments Tuesday 12:20 PM EDT Where: [facility] Medications What How Much When Instructions Unchanged ascorbic acid (Vitamin C) Every day Contact prescribing physician if questions or concerns Unchanged calcium-vitamin D (Citracal Maximum + D) By Mouth 2 times a day Contact prescribing physician if questions or concerns Unchanged cholecalciferol (Vitamin D3 1000 intl units oral tablet) 1 Tablets By Mouth Every day Contact prescribing physician if questions or concerns Unchanged cyanocobalamin (Vitamin B12) Contact prescribing physician if questions or concerns Unchanged echinacea Contact prescribing physician if questions or concerns Unchanged lisinopril (lisinopril 40 mg Tab) By Mouth Every day Contact prescribing physician if questions or concerns Unchanged milk thistle Contact prescribing physician if questions or concerns Unchanged naproxen (Aleve) By Mouth Every 12 hours Contact prescribing physician if questions or concerns Unchanged niacin By Mouth Contact prescribing physician if questions or concerns Unchanged potassium acetate Contact prescribing physician if questions or concerns Unchanged pyridoxine (Vitamin B6) Every day Contact prescribing physician if questions or concerns Unchanged sodium chloride (sodium chloride 1 g Tab) Contact prescribing physician if questions or concerns Unchanged Turmeric By Mouth Every day Contact prescribing physician if questions or concerns Allergies No active allergies Problems Ongoing - Any problem that you are currently receiving treatment for. 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 male referred by Dr. Pineda for anemia History of Present Illness Dai العلي is a 76-year-old white male who was referred to me for evaluation of anemia. His hemoglobin is barely abnormal at 13.2 g/dL. His MCV is 95.8 fl. His platelets, liver enzymes, AST, ALT, alkaline phosphatase, kidney functions, iron panel, B12, and folic acid are all normal. His sodium is 131 mEq/L. The patient denies hematochezia and notes melena secondary to iron supplementation. He takes iron when he feels weak and does not take the supplement often as it makes him feel unwell. He denies nausea, vomiting, heartburn, acid reflux, diarrhea, or constipation. He denies a family history of colon cancer. He estimates that Dr. La performed his last colonoscopy 15 years ago. 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 Review of Systems PHQ Score Initial Depression Screen Score: 0 Constitutional: no fever, no chills, no sweats, no weakness Skin: no Jaundice, no rash, no lesions, no petechiae ENMT: no ear pain, no sore throat, no congestion, no hoarseness Respiratory: no shortness of breath, no cough, no orthopnea, no wheezing Cardiovascular: no chest pain, no palpitations, no edema Gastrointestinal: no nausea, no vomiting, no diarrhea, no constipation, no GI bleeding, no abdominal pain, no dysphagia, no bloating, no heartburn Genitourinary: no dysuria, no hematuria, no discharge, no pain Musculoskeletal: no back pain, no trauma Neurologic: no numbness, no sleeping problems Additional ROS info: Except as noted in the above Review of Systems and in the History of Present Illness all other systems have been reviewed and are negative or noncontributory. Physical Exam Vitals & Measurements HR: 78(Peripheral) RR: 16 BP: 108/64 HT: 180 cm HT: 180.0 cm WT: 78.3 kg WT: 78.3 kg BMI: 24.17 Constitutional: Appearance: well developed Skin: Inspection: no rashes, ulcers, icterus, or telangiectasias. Eyes: Conjunctivae/lids: normal conjunctivae and lids. ENMT: Hearing: within normal limits. Lips/Teeth/Gums: normal oral mucosa Neck: Neck: normal motion, central trachea Respiratory: Percussion: thorax normoresonant. Auscultation: normal breath sounds; no rubs, wheezes, rale or ronchi. Cardiovascular: Auscultation: normal rhythm, S1 and S2; no rubs, murmurs or gallop. Peripheral: no edema Gastrointestinal/Abdome n: Abdomen: normal consistency and bowel sounds; no tenderness or masses. Liver/Spleen: normal size and consistency, not palpable. Rectal: deferred Musculoskeletal: Gait/station: normal gait Assessment/Plan 1. Anemia (D64.9: Anemia, unspecified) The patient has very mild anemia with a hemoglobin of 13.2 g/dL. His iron panel is normal. He also has normal B12 and folic acid. He reports no melena, hematochezia, or rectal bleeding. I will proceed with an EGD and colonoscopy. If both are normal, then we will recommend taking supplemental iron. Other etiologies of anemia might be considered, including chronic disease anemia, if the above evaluation is normal. ATTESTATION: Documentation services were performed after patient or guardian consented to allow Ronn Dodd to record this visit. ALISON personal protection specialist and provider reviewed before signing. ALISON: Alexandria Rodriguez. Follow-up No qualifying data available Problem List/Past Medical History Ongoing Anemia BPH associated with nocturia Current smoker Essential hypertension Familial hypercholesterolemia Hyponatremia Lung nodules Historical No qualifying data Medications Aleve, Oral, q12hr Citracal Maximum + D, Oral, BID echinacea lisinopril 40 mg Tab, Oral, Daily milk thistle niacin, Oral Plenvu oral powder for reconstitution, See Instructions potassium acetate sodium chloride 1 g Tab Turmeric, Oral, Daily Vitamin B12 Vitamin B6, Daily Vitamin C, Daily Vitamin D3 1000 intl units oral tablet, 25 mcg= 1 tab(s), Oral, Daily Allergies No active allergies Social History Tobacco 10 or more cigarettes (1/2 pack or more)/day in last 30 days Tobacco Use:., 09/03/2021 Immunizations Vaccine Date Status influenza virus vaccine, inactivated 10/2020 Recorded Normal [facility] Comment on above: Result Comment: Elec tronically Signed By: Marlys LOPEZ MD\.br\Date and Time Signed: 09/03/21 14:17 EDT\.br\Electronically Co-Signed By: Alexandria Rodriguez\.br\Date and Time Co-Signed: 09/03/21 14:16 EDT CBC AUTO DIFFon 08-04-2021 BASO # 0.1 103/ul Normal 0.0-0.1 [facility] Comment on above: Performed By: #### T SH, URIC, CMP #### [facility] [address] [place] [address] Dr. Sherman Santos Basophils/100 WBC (Bld) 0.8 % Normal 0.2-2.0 [facility] Comment on above: Performed By: #### T MATHIEU URIC, CMP #### [facility] [address] [place] [address] Dr. Sherman Santos EO # 0.3 103/ul Normal 0.0-0.7 [facility] Comment on above: Performed By: #### T MATHIEU URIC, CMP #### [facility] [address] [place] [address] Dr. Sherman Santos Eosinophils/100 WBC (Bld) 4.9 % Normal 0.9-7.0 [facility] Comment on above: Performed By: #### T MATHIEU URIC, CMP #### [facility] [address] [place] [address] Dr. Sherman Santos Erythrocyte distribution width (RBC) [Ratio] 12.3 % Normal 11.0-15.0 [facility] Comment on above: Performed By: #### T MATHIEU URIC, CMP #### [facility] [address] [place] [address] Dr. Sherman Santos Hematocrit (Bld) [Volume fraction] 44.5 % Normal 42.0-54.0 [facility] Comment on above: Performed By: #### T MATHIEU URIC, CMP #### [facility] [address] [place] [address] Dr. Sherman Santos Hemoglobin (Bld) [Mass/Vol] 14.5 g/dL Normal 14.0-18.0 [facility] Comment on above: Performed By: #### T SH URIC, CMP #### [facility] [address] [place] [address] Dr. Sherman Santos IG # 0.02 10e3/ul Normal 0.00-0.03 [facility] Comment on above: Performed By: #### T SH URIC, CMP #### [facility] [address] [place] [address] Dr. Sherman Santos IG % 0.3 % Normal 0.0-0.5 [facility] Comment on above: Performed By: #### T SH, URIC, CMP #### [facility] [address] [place] [address] Dr. Sherman Santos LYMPH # 2.1 103/ul Normal 1.2-3.8 [facility] Comment on above: Performed By: #### T SH, URIC, CMP #### [facility] [address] [place] [address] Dr. Sherman Santos Lymphocytes/100 WBC (Bld) 34.7 % Normal 20.5-60.0 [facility] Comment on above: Performed By: #### T SH, URIC, CMP #### [facility] [address] [place] [address] Dr. Sherman Santos MANUAL DIFF REQ NO Normal [facility] Comment on above: Performed By: #### T SH, URIC, CMP #### [facility] [address] [place] [address] Dr. Sherman Santos MCH (RBC) [Entitic mass] 32.7 pg Normal 25.9-34.0 [facility] Comment on above: Performed By: #### T SH, URIC, CMP #### [facility] [address] [place] [address] Dr. Sherman Santos MCHC (RBC) [Mass/Vol] 32.6 g/dL Normal 29.9-35.2 [facility] Comment on above: Performed By: #### T SH, URIC, CMP #### [facility] [address] [place] [address] Dr. Sherman Santos MCV (RBC) [Entitic vol] 100.2 fL Critically high 80.0-94 .0 [facility] Comment on above: Performed By: #### T SH, URIC, CMP #### [facility] [address] [place] [address] Dr. Sherman Santos MONO # 0.9 103/ul Critically high 0.3-0.8 [facility] Comment on above: Performed By: #### T SH, URIC, CMP #### [facility] [address] [place] [address] Dr. Sherman Santos Monocytes/100 WBC (Bld) 14.6 % Critically high 1.7-12. 0 [facility] Comment on above: Performed By: #### T SH URIC, CMP #### [facility] [address] [place] [address] Dr. Sherman Santos NEUT # 2.7 103/ul Normal 1.4-6.5 [facility] Comment on above: Performed By: #### T SH URIC, CMP #### [facility] [address] [place] [address] Dr. Sherman Santos Neutrophils/100 WBC (Bld) 44.7 % Normal 43.0-75.0 [facility] Comment on above: Performed By: #### T MATHIEU URIC, CMP #### [facility] [address] [place] [address] Dr. Sherman Santos Platelet mean volume (Bld) [Entitic vol] 9.6 fL Normal 9.5-13.5 [facility] Comment on above: Performed By: #### T SH URIC, CMP #### [facility] [address] [place] [address] Dr. Sherman Santos PLT 323 103/ul Normal 150-450 [facility] Comment on above: Performed By: #### T MATHIEU URIC, CMP #### [facility] [address] [place] [address] Dr. Sherman Santos RBC 4.44 106/ul Critically low 4.70-6.10 [facility] Comment on above: Performed By: #### T SH URIC, CMP #### [facility] [address] [place] [address] Dr. Sherman Santos WBC 6.0 103/ul Normal 4.0-11.0 [facility] Comment on above: Performed By: #### T SH URIC, CMP #### [facility] [address] [place] [address] Dr. Sherman Santos LIPID PROFILEon 08-04-2021 CHOL-HDL RATIO NORM SEE BELOW Normal [facility] Comment on above: Result Comment: 3.3 - 4.4 LOW RISK 4.4 - 7.1 AVERAGE RISK 7.1 - 11.0 MODERATE RISK >11.0 HIGH RISK Performed By: #### O SMO #### [facility] [address] [address] [address] Sherman Santos Cholesterol [Mass/Vol] 253 mg/dL Critically high <=200 [facility] Comment on above: Performed By: #### O SMO #### [facility] [address] [address] [address] Sherman Santos Cholesterol in HDL [Mass/Vol] 42 mg/dL Normal 40-60 [facility] Comment on above: Performed By: #### O SMO #### [facility] [address] [address] [address] Sherman Santos Cholesterol in LDL [Mass/Vol] 156.8 mg/dL Normal [facility] Comment on above: Performed By: #### O SMO #### [facility] [address] [address] [address] Sherman Santos Cholesterol.total/Eula sterol in HDL [Mass ratio] 6.0 {ratio} Normal [facility] Comment on above: Performed By: #### O SMO #### [facility] [address] [address] [address] Sherman Santos HDL NORMAL > or = 60 mg/dl - LO W CARDIOVASCULAR RISK <40 mg/dl - HIGH CARDIOVASCULAR RISK Normal [facility] Comment on above: Performed By: #### O SMO #### [facility] [address] [address] [address] Sherman Santos LDL CALC NORMAL SEE BELOW Normal [facility] Comment on above: Result Comment: <100 mg/dl OPTIMAL 100 - 129 mg/dl NEAR OR ABOVE OPTIMAL 130 - 159 mg/dl BORDERLINE HIGH 160 - 189 mg/dl HIGH >190 mg/dl VERY HIGH Performed By: #### O SMO #### [facility] [address] [address] [address] Sherman Santos Triglyceride [Mass/Vol] 271 mg/dL Critically high <=150 [facility] Comment on above: Performed By: #### O SMO #### [facility] [address] [address] [address] Sherman Santos VLDL CALC 54.2 mg/dL Normal [facility] Comment on above: Performed By: #### O SMO #### [facility] [address] [place] [address] Dr. Sherman Santos PROF 14(COMP METB)on 022 Albumin [Mass/Vol] 4.5 g/dL Normal 3.4-5.0 [facility] Comment on above: Performed By: #### T SH, CMP, LIPID, T4 #### [facility] [address] [place] [address] Dr. Sherman Santos Albumin/Globulin [Mass ratio] 1.2 {ratio} Normal [facility] Comment on above: Performed By: #### T SH, CMP, LIPID, T4 #### [facility] [address] [place] [address] Dr. Sherman Santos ALP [Catalytic activity/Vol] 91 U/L Normal 46-116 [facility] Comment on above: Performed By: #### T SH, CMP, LIPID, T4 #### [facility] [address] [place] [address] Dr. Sherman Santos ALT [Catalytic activity/Vol] 53 U/L Normal 16-63 [facility] Comment on above: Performed By: #### T SH, CMP, LIPID, T4 #### [facility] [address] [place] [address] Dr. Sherman Santos Anion gap [Moles/Vol] 16.7 mmol/L Normal [facility] Comment on above: Performed By: #### T SH, CMP, LIPID, T4 #### [facility] [address] [place] [address] Dr. Sherman Santos AST [Catalytic activity/Vol] 42 U/L Critically high 15-37 [facility] Comment on above: Performed By: #### T SH, CMP, LIPID, T4 #### [facility] [address] [place] [address] Dr. Sherman Santos Bilirubin [Mass/Vol] 0.7 mg/dL Normal 0.2-1.0 [facility] Comment on above: Performed By: #### T SH, CMP, LIPID, T4 #### [facility] [address] [address] [address] Sherman Santos Calcium [Mass/Vol] 9.4 mg/dL Normal 8.5-10.1 [facility] Comment on above: Performed By: #### T SH, CMP, LIPID, T4 #### [facility] [address] [address] [address] Sherman Santos Chloride [Moles/Vol] 93 mmol/L Critically low 98-107 [facility] Comment on above: Performed By: #### T SH, CMP, LIPID, T4 #### [facility] [address] [address] [address] Sherman Santos CO2 [Moles/Vol] 24.2 mmol/L Normal 21.0-32.[address] [facility] Comment on above: Performed By: #### T SH, CMP, LIPID, T4 #### [facility] [address] [place] [address] Dr. Sherman Santos Creatinine [Mass/Vol] 0.85 mg/dL Normal 0.70-1.30 [facility] Comment on above: Performed By: #### T SH, CMP, LIPID, T4 #### [facility] [address] [address] [address] Sherman Santos EGFR-AF THAI >60 Normal >=[address] [facility] Comment on above: Performed By: #### T SH, CMP, LIPID, T4 #### [facility] [address] [place] [address] Dr. Sherman Santos EGFR-NON AF THAI >60 Normal >=60 [facility] Comment on above: Performed By: #### T SH, CMP, LIPID, T4 #### [facility] [address] [address] [address] Sherman Santos Globulin (S) [Mass/Vol] 3.6 g/dL Normal [facility] Comment on above: Performed By: #### T SH, CMP, LIPID, T4 #### [facility] [address] [place] [address] Dr. Sherman Santos Glucose [Mass/Vol] 71 mg/dL Critically low 74-106 [facility] Comment on above: Performed By: #### T SH, CMP, LIPID, T4 #### [facility] [address] [address] [address] Sherman Santos Potassium [Moles/Vol] 4.9 mmol/L Normal 3.5-5.1 [facility] Comment on above: Performed By: #### T SH, CMP, LIPID, T4 #### [facility] [address] [place] [address] Dr. Sherman Santos Protein [Mass/Vol] 8.1 g/dL Normal 6.4-8.2 [facility] Comment on above: Performed By: #### T SH, CMP, LIPID, T4 #### [facility] [address] [place] [address] Dr. Sherman Santos Sodium [Moles/Vol] 129 mmol/L Critically low 136-145 Th [facility] Comment on above: Performed By: #### T SH, CMP, LIPID, T4 #### [facility] [address] [place] [address] Dr. Sherman Santos Urea nitrogen [Mass/Vol] 14.0 mg/dL Normal 7.0-18.0 [facility] Comment on above: Performed By: #### T SH, CMP, LIPID, T4 #### [facility] [address] [place] [address] Dr. Sherman Santos Urea nitrogen/Creatinine [Mass ratio] 16.5 mg/mg Normal [facility] Comment on above: Performed By: #### T SH, CMP, LIPID, T4 #### [facility] [address] [place] [address] Dr. Sherman Santos T4on 08-04-2021 T4 [Mass/Vol] 6.30 ug/dL Normal 4.50-12.10 [facility] Comment on above: Performed By: #### O SMO #### [facility] [address] [place] [address] Dr. Sherman Santos TSHon 08-04-2021 TSH 0.809 uIU/mL Normal 0.358-3.740 [facility] Comment on above: Performed By: #### O SMO #### [facility] [address] [address] [address] Sherman Santos TSH RANGE SEE BELOW Normal [facility] Comment on above: Result Comment: <0.3 4 UIU/ml HYPERTHYROID 0.34-5.60 UIU/ml EUTHYROID >5.60 UIU/ml HYPOTHYROID Performed By: #### O SMO #### [facility] [address] [address] [address] Sherman Santos Physician Referralon 022 Physician Referral [id number] D:127 Normal [facility] Vital Signs Date Time Vital Sign Value Performing Clinician Facility 10-25-2024 08:50-0400 Body height 180.34 cm Shay Ball DO Work Phone: [facility] 10-25-2024 08:50-0400 Body mass index (BMI) [Ratio] 24 kg/m2 Shay Ball DO Work Phone: [facility] 10-25-2024 08:50-0400 Body weight 78.07 kg Shay Ball DO Work Phone: [facility] 10-25-2024 08:50-0400 Diastolic blood pressure 89 mm[Hg] Shay Ball DO Work Phone: [facility] 10-25-2024 08:50-0400 Heart rate 72 /min Shay Ball DO Work Phone: [facility] 10-25-2024 08:50-0400 Respiratory rate 12 /min Shay Ball DO Work Phone: [facility] 10-25-2024 08:50-0400 Systolic blood pressure 139 mm[Hg] Shay Ball DO Work Phone: [facility] 09-07-2024 14:12-0400 Body height 180.3 cm Jacboo De Los Santos DPM Work Phone: [facility] 09-07-2024 14:12-0400 Body mass index (BMI) [Ratio] 23.71 kg/m2 Jacobo Brown DPM Work Phone: [facility] 09-07-2024 14:12-0400 Body weight 77.11 kg Jacobo Brown DPM Work Phone: [facility] 09-07-2024 14:12-0400 Respiratory rate 16 /min Jacobo Brown DPM Work Phone: [facility] 09-04-2024 10:24-0400 Body height 180.34 cm Shay Ball DO Work Phone: [facility] 09-04-2024 10:24-0400 Body mass index (BMI) [Ratio] 24.8 kg/m2 Shay Ball DO Work Phone: [facility] 09-04-2024 10:24-0400 Body weight 80.73 kg Shay Ball DO Work Phone: [facility] 07-11-2024 15:00-0400 Body height 180.3 cm Jacobo Brown DPM Work Phone: [facility] 07-11-2024 15:00-0400 Body mass index (BMI) [Ratio] 23.71 kg/m2 Jacobo Brown DPM Work Phone: [facility] 07-11-2024 15:00-0400 Body weight 77.11 kg Jacobo Brown DPM Work Phone: [facility] 07-11-2024 15:00-0400 Respiratory rate 16 /min Jacobo Brown DPM Work Phone: [facility] 06-27-2024 15:59-0400 Body height 180.3 cm Jacobo Brown DPM Work Phone: [facility] 06-27-2024 15:59-0400 Body mass index (BMI) [Ratio] 23.71 kg/m2 Jacobo Brown DPM Work Phone: [facility] 06-27-2024 15:59-0400 Body weight 77.11 kg Jacobo Brown DPM Work Phone: [facility] 06-27-2024 15:59-0400 Respiratory rate 16 /min Jacobo De Los Santos HEATHERWilla Work Phone: [facility] 06-12-2024 08:34-0400 Body height 180.34 cm [facility] 06-12-2024 08:34-0400 Body mass index (BMI) [Ratio] 24 kg/m2 [facility] 06-12-2024 08:34-0400 Body weight 78.18 kg [facility] 06-12-2024 08:34-0400 Diastolic blood pressure 89 mm[Hg] [facility] 06-12-2024 08:34-0400 Heart rate 72 /min [facility] 06-12-2024 08:34-0400 Respiratory rate 12 /min [facility] 06-12-2024 08:34-0400 Systolic blood pressure 139 mm[Hg] [facility] 05-15-2024 08:39-0500 Body height 180.34 cm [facility] 05-15-2024 08:39-0500 Body mass index (BMI) [Ratio] 24 kg/m2 [facility] 05-15-2024 08:39-0500 Body weight 78.07 kg [facility] 05-15-2024 08:39-0500 Diastolic blood pressure 71 mm[Hg] [facility] 05-15-2024 08:39-0500 Heart rate 76 /min [facility] 05-15-2024 08:39-0500 Respiratory rate 12 /min [facility] 05-15-2024 08:39-0500 Systolic blood pressure 159 mm[Hg] [facility] 03-07-2024 09:16-0500 Body height 180.34 cm [facility] 03-07-2024 09:16-0500 Body mass index (BMI) [Ratio] 24.3 kg/m2 [facility] 03-07-2024 09:16-0500 Body weight 79.09 kg [facility] 03-07-2024 09:16-0500 Diastolic blood pressure 89 mm[Hg] [facility] 03-07-2024 09:16-0500 Heart rate 83 /min [facility] 03-07-2024 09:16-0500 Respiratory rate 12 /min [facility] 03-07-2024 09:16-0500 Systolic blood pressure 139 mm[Hg] [facility] 02-01-2024 10:47-0500 Body height 180.3 cm Alex Garcia MD Work Phone: [facility] 02-01-2024 10:47-0500 Body mass index (BMI) [Ratio] 23.99 kg/m2 Alex Garcia MD Work Phone: [facility] 02-01-2024 10:47-0500 Body weight 78.02 kg Alex Garcia MD Work Phone: [facility] 02-01-2024 10:47-0500 Diastolic blood pressure 80 mm[Hg] Alex Garcia MD Work Phone: [facility] 02-01-2024 10:47-0500 Systolic blood pressure 127 mm[Hg] Alex Garica MD Work Phone: [facility] 01-24-2024 11:18-0400 Body height 180.34 cm [facility] 01-24-2024 11:18-0400 Body mass index (BMI) [Ratio] 23.9 kg/m2 [facility] 01-24-2024 11:18-0400 Body weight 77.79 kg [facility] 01-24-2024 11:18-0400 Diastolic blood pressure 83 mm[Hg] [facility] 01-24-2024 11:18-0400 Heart rate 93 /min [facility] 01-24-2024 11:18-0400 Respiratory rate 12 /min [facility] 01-24-2024 11:18-0400 Systolic blood pressure 141 mm[Hg] [facility] 11-07-2023 12:00-0400 Body height 180.34 cm [facility] 11-07-2023 12:00-0400 Body mass index (BMI) [Ratio] 23.8 kg/m2 [facility] 11-07-2023 12:00-0400 Body weight 77.73 kg [facility] 11-07-2023 12:00-0400 Diastolic blood pressure 75 mm[Hg] [facility] 11-07-2023 12:00-0400 Heart rate 80 /min [facility] 11-07-2023 12:00-0400 Respiratory rate 12 /min [facility] 11-07-2023 12:00-0400 Systolic blood pressure 139 mm[Hg] [facility] 08-05-2023 08:52-0400 Body height 180.34 cm [facility] 08-05-2023 08:52-0400 Body mass index (BMI) [Ratio] 23.7 kg/m2 [facility] 08-05-2023 08:52-0400 Body weight 77.16 kg [facility] 08-05-2023 08:52-0400 Diastolic blood pressure 78 mm[Hg] [facility] 08-05-2023 08:52-0400 Heart rate 80 /min [facility] 08-05-2023 08:52-0400 Respiratory rate 12 /min [facility] 08-05-2023 08:52-0400 Systolic blood pressure 150 mm[Hg] [facility] 05-18-2023 14:31-0500 Body height 180.34 cm [facility] 05-18-2023 14:31-0500 Body mass index (BMI) [Ratio] 24.3 kg/m2 [facility] 05-18-2023 14:31-0500 Body weight 79.15 kg [facility] 05-18-2023 14:31-0500 Diastolic blood pressure 82 mm[Hg] [facility] 05-18-2023 14:31-0500 Heart rate 77 /min [facility] 05-18-2023 14:31-0500 Respiratory rate 12 /min [facility] 05-18-2023 14:31-0500 Systolic blood pressure 166 mm[Hg] [facility] 04-07-2023 08:30-0500 Body height 180.34 cm [facility] 04-07-2023 08:30-0500 Body weight 78.56 kg [facility] 04-07-2023 08:30-0500 Diastolic blood pressure 83 mm[Hg] [facility] 04-07-2023 08:30-0500 Systolic blood pressure 150 mm[Hg] [facility] 01-03-2023 08:30-0400 Body height 180.34 cm Shay Ball Other [facility] Other 01-03-2023 08:30-0400 Body mass index (BMI) [Ratio] 24.29 kg/m2 Shay Ball Other [employer] Other 01-03-2023 08:30-0400 Body weight 79.02 kg Shay Ball Other [employer] Other 01-03-2023 08:30-0400 Diastolic blood pressure 70 mm[Hg] Shay Ball Other [employer] Other 01-03-2023 08:30-0400 Respiratory rate 12 /min Shay Ball Other [employer] Other 01-03-2023 08:30-0400 Systolic blood pressure 168 mm[Hg] Shay Ball Other [employer] Other 07-22-2022 09:30-0400 Body height 180.34 cm Shay Ball Other [employer] Other 07-22-2022 09:30-0400 Body mass index (BMI) [Ratio] 24.18 kg/m2 Shay Ball Other [employer] Other 07-22-2022 09:30-0400 Body weight 78.65 kg Shay Ball Other [employer] Other 07-22-2022 09:30-0400 Diastolic blood pressure 81 mm[Hg] Shay Ball Other [employer] Other 07-22-2022 09:30-0400 Respiratory rate 12 /min Shay Ball Other [employer] Other 07-22-2022 09:30-0400 Systolic blood pressure 150 mm[Hg] Shay Ball Other [employer] Other 06-24-2022 11:00-0400 Body height 180.34 cm Hawa Olexa Other [employer] Other 06-24-2022 11:00-0400 Body mass index (BMI) [Ratio] 24.27 kg/m2 Hawa Olexa Other [employer] Other 06-24-2022 11:00-0400 Body weight 78.93 kg Hawa Olexa Other [employer] Other 04-20-2022 09:30-0500 Body height 180.34 cm Shya Ball Other [employer] Other 04-20-2022 09:30-0500 Body mass index (BMI) [Ratio] 24.35 kg/m2 Shay Ball Other [employer] Other 04-20-2022 09:30-0500 Body weight 79.2 kg Shay Ball Other [employer] Other 04-20-2022 09:30-0500 Diastolic blood pressure 70 mm[Hg] Shay Ball Other [employer] Other 04-20-2022 09:30-0500 Respiratory rate 12 /min Shay Ball Other [employer] Other 04-20-2022 09:30-0500 Systolic blood pressure 122 mm[Hg] Shay Ball Other [facility] Other 09-23-2021 13:25-0400 Blood Pressure Location Frankel SALAM [facility] 09-23-2021 13:25-0400 Diastolic blood pressure 74 mm[Hg] Frankel SALAM [facility] 09-23-2021 13:25-0400 Heart rate 61 /min Frankel SALAM [facility] 09-23-2021 13:25-0400 Respiratory rate 16 /min Frankel SALAM [facility] 09-23-2021 13:25-0400 SaO2% (BldA) [Mass fraction] 99 % Frankel SALAM [facility] 09-23-2021 13:25-0400 Systolic blood pressure 156 mm[Hg] Frankel SALAM [facility] 09-23-2021 13:10-0400 Blood Pressure Location Frankel SALAM [facility] 09-23-2021 13:10-0400 Diastolic blood pressure 78 mm[Hg] Frankel SALAM [facility] 09-23-2021 13:10-0400 Heart rate 80 /min Frankel SALAM [facility] 09-23-2021 13:10-0400 Respiratory rate 12 /min Frankel SALAM [facility] 09-23-2021 13:10-0400 SaO2% (BldA) [Mass fraction] 96 % Frankel SALAM [facility] 06-29-2022 13:10-0400 Systolic blood pressure 143 mm[Hg] Rfankel SALAM [facility] 09-23-2021 13:05-0400 Blood Pressure Location Frankel SALAM [facility] 09-23-2021 13:05-0400 Diastolic blood pressure 85 mm[Hg] Frankel SALAM [facility] 09-23-2021 13:05-0400 Heart rate 75 /min Frankel SALAM [facility] 09-23-2021 13:05-0400 Respiratory rate 11 /min Frankel SALAM [facility] 09-23-2021 13:05-0400 SaO2% (BldA) [Mass fraction] 97 % Frankel SALAM [facility] 09-23-2021 13:05-0400 Systolic blood pressure 137 mm[Hg] Frankel SALAM [facility] 09-23-2021 12:53-0400 Body temperature 98.06 [degF] Frankel SALAM [facility] 09-23-2021 11:55-0400 Body temperature 98.06 [degF] Frankel SALAM [facility] 09-03-2021 13:09-0400 Blood Pressure Location Frankel SALAM [facility] 09-03-2021 13:09-0400 Diastolic blood pressure 64 mm[Hg] Frankel SALAM [facility] 09-03-2021 13:09-0400 Heart rate 78 /min Frankel SALAM [facility] 09-03-2021 13:09-0400 Respiratory rate 16 /min Marlys LOPEZ [facility] 09-03-2021 13:09-0400 Systolic blood pressure 108 mm[Hg] Marlys LOPEZ [facility] 09-03-2021 09:15-0400 Body height 180.34 cm Renee Lawrence Other [employer] Other 09-03-2021 09:15-0400 Body mass index (BMI) [Ratio] 23.71 kg/m2 Renee Lawrence Other [employer] Other 09-03-2021 09:15-0400 Body weight 77.11 kg Renee Lawrence Other [employer] Other 01-29-2021 11:30-0400 Body height 180.34 cm Hawa Olexa Other [employer] Other 01-29-2021 11:30-0400 Body mass index (BMI) [Ratio] 24.96 kg/m2 Hawa Olexa Other [employer] Other 01-29-2021 11:30-0400 Body weight 81.19 kg Hawa Olexa Other [employer] Other Encounters Encounter Date Encounter Type Care Provider Facility Start: 10-25-2024 End: 10-25-2024 ambulatory Shay Pineda DO Work Phone: [facility] Work Phone: Start: 10-25-2024 End: 10-25-2024 Patient encounter procedure Shay Pineda DO [facility] Work Phone: Start: 10-25-2024 End: 10-25-2024 Patient encounter status Shay Pineda DO [facility] Start: 09-07-2024 End: 09-07-2024 Office outpatient visit 10 minutes Jacobo De Los Santos DPM Work Phone: [facility] Comment on above: Capsulitis of metata rsophalangeal (MTP) joint of right foot (Primary Dx); Hallux rigidus of right foot; DJD (degenerative joint disease), ankle and foot, right; Pain due to onychomycosis of toenails of both feet Start: 09-07-2024 End: 09-07-2024 ambulatory JACOBO DE LOS SANTOS Not Available Start: 09-07-2024 End: 09-07-2024 Bamboo flowsheet Jacobo De Los Santos DPM Work Phone: [facility] Start: 09-07-2024 End: 09-07-2024 Bamboo flowsheet Jacobo De Los Santos DPM Work Phone: [facility] Start: 09-04-2024 End: 09-04-2024 ambulatory Shay Pineda DO Work Phone: [facility] Work Phone: Start: 09-04-2024 End: 09-04-2024 Patient encounter procedure Shay Pineda DO Work Phone: [facility] Work Phone: Start: 07-11-2024 End: 07-11-2024 Office outpatient visit 15 minutes Jacobo De Los Santos DPM Work Phone: [facility] Comment on above: Hallux rigidus of ri ght foot (Primary Dx); Capsulitis of metatarsophalangeal (MTP) joint of right foot; DJD (degenerative joint disease), ankle and foot, right Start: 07-11-2024 End: 07-11-2024 ambulatory JACOBO DE LOS SANTOS Not Available Start: 07-11-2024 End: 07-11-2024 Bamboo flowsjose De Los Santos DPM Work Phone: [facility] Start: 07-11-2024 End: 07-11-2024 Bamboo flowsheet Jacobo De Los Santos DPM Work Phone: [facility] Start: 07-03-2024 End: 07-03-2024 ambulatory Shay Pineda DO Work Phone: [facility] Work Phone: Start: 07-03-2024 End: 07-03-2024 Departed Referred Shay Pineda DO Work Phone: [facility] [address] Work Phone: Start: 06-27-2024 End: 06-27-2024 Office outpatient new 30 minutes Jacobo De Los Santos DPM Work Phone: [facility] Comment on above: DJD (degenerative zhang int disease), ankle and foot, right (Primary Dx); Hallux rigidus of right foot; Acquired deformity of right toe; Capsulitis of metatarsophalangeal (MTP) joint of right foot; Pain due to onychomycosis of toenails of both feet Start: 06-27-2024 End: 06-27-2024 ambulatory JACOBO DE LOS SANTOS Not Available Start: 06-12-2024 End: 06-12-2024 ambulatory [facility] Work Phone: Start: 06-12-2024 End: 06-12-2024 Patient encounter procedure [facility] Work Phone: Start: 05-15-2024 End: 05-15-2024 ambulatory [facility] Work Phone: Start: 05-15-2024 End: 05-15-2024 Patient encounter procedure [facility] Work Phone: Start: 03-07-2024 End: 03-07-2024 Patient encounter procedure [facility] Work Phone: Start: 02-01-2024 End: 02-01-2024 Bamboo flowsheet Alex Garcia MD Work Phone: [facility] Start: 02-01-2024 End: 02-01-2024 Bamboo flowsheet Alex Garcia MD Work Phone: [facility] Start: 02-01-2024 End: 02-01-2024 Office outpatient new 45 minutes Alex Garcia MD Work Phone: [facility] Comment on above: Chronic vasomotor rh initis (Primary Dx) Start: 02-01-2024 End: 02-01-2024 ambulatory ALEX GARCIA Not Available Start: 01-24-2024 End: 01-24-2024 ambulatory [facility] Work Phone: Start: 01-24-2024 End: 01-24-2024 [facility] Work Phone: Start: 11-07-2023 End: 11-07-2023 ambulatory [facility] Work Phone: Start: 11-07-2023 End: 11-07-2023 [facility] Work Phone: Start: 10-10-2023 Non-patient / Non-visit [facility] Work Phone: Start: 08-05-2023 End: 08-05-2023 ambulatory [facility] Work Phone: Start: 08-05-2023 End: 08-05-2023 Encounter for general adult medical examination without abnormal findings [facility] Start: 08-05-2023 End: 08-05-2023 Patient encounter procedure [facility] Work Phone: Start: 06-29-2023 Non-patient / Non-visit [facility] Work Phone: Start: 06-02-2023 End: 06-02-2023 Patient encounter procedure [facility] Work Phone: Start: 05-18-2023 End: 05-18-2023 ambulatory [facility] Work Phone: Start: 05-18-2023 End: 05-18-2023 Patient encounter procedure [facility] Work Phone: Start: 04-07-2023 End: 04-07-2023 Patient encounter procedure [facility] Work Phone: Start: 01-03-2023 End: 01-03-2023 ambulatory Shay Pineda Other [employer] Other Start: 01-03-2023 Office outpatient vi sit 25 minutes Shay Chanelle [facility] Start: 07-30-2022 End: 07-31-[address] SHAY PINEDA Facility: Start: 07-22-2022 End: 07-22-2022 ambulatory Shay Pineda Other [employer] Other Start: 07-22-2022 Encounter for genera l adult medical examination without abnormal findings Shay Pineda [facility] Start: 07-22-2022 Periodic preventive med est patient 65yrs& older Shay Pineda [facility] Start: 06-24-2022 Office outpatient vi sit 15 minutes Hawa Elfegoxa [facility] Start: 06-24-2022 End: 06-24-2022 ambulatory DO Shay Pineda Work Phone: [employer] Other Start: 06-24-2022 End: 06-24-2022 Patient encounter procedure DO Shay Pineda Work Phone: [facility] Start: 04-20-2022 End: 04-20-2022 ambulatory Shay Pineda Other [employer] Other Start: 04-20-2022 Office outpatient vi sit 25 minutes Shay Pineda [facility] Start: 03-02-2022 End: 03-02-2022 ambulatory PREMA BEDOLLA . Facility:[facility] Start: 03-02-2022 End: 03-03-[address] SHAY PINEDA Facility:[facility] Start: 01-12-2022 End: 01-13-[address] SHAY PINEDA Facility:[facility] Start: 09-23-2021 End: 09-23-2021 Patient encounter procedure [employer] [facility] Start: 09-03-2021 End: 09-03-2021 ambulatory Renee Lawrence Other [employer] Other Start: 09-03-2021 Office outpatient vi sit 15 minutes Renee Lawrence [facility] Start: 09-03-2021 End: 09-03-2021 Patient encounter procedure Frankel [email or web address] [facility] Start: 08-04-2021 End: 08-05-[address] SHAY PIENDA Facility:[facility] Start: 04-09-2021 End: 04-09-2021 ambulatory Hawa Olexa Other [employer] Other Start: 04-09-2021 Postop follow up vis it related to original px Hawa Olexa [facility] Start: 02-26-2021 End: 02-26-2021 ambulatory Hawa Olexa Other [employer] Other Start: 02-26-2021 Telephone encounter Hawa Olexa [facility] Start: 02-02-2021 End: 02-02-2021 ambulatory Hawa Olexa Other [employer] Other Start: 02-02-2021 Telephone encounter Hawa Olexa [facility] Start: 01-29-2021 End: 01-29-2021 ambulatory Hawa Olexa Other [employer] Other Start: 01-29-2021 Encounter for other preprocedural examination Hawa Starkey [facility] Start: 01-29-2021 Office outpatient vi sit 25 minutes Hawa Lalito [facility] Procedures Date Procedure Procedure Detail Performing Clinician Start: 09-04-2024 Plain X-ray of right shoulder Shay Raymond all DO Work Phone: Start: 06-27-2024 Radex foot complete minimum 3 views Jacobo De Los Santos DPM Work Phone: Start: 07-30-[address] SHAY PINEDA Comment on above: Performed By: #### TSH, URIC, CMP #### [facility] [address] [place] [address] Dr. Sherman Santos Start: 06-24-2022 Plain X-ray of right shoulder DO Jason Pineda Work Phone: Start: 09-23-2021 Colonoscopy [facility] Start: 09-23-2021 Esophagogastroduodenoscopy gastric outlet reduction [facility] Start: 08-04-[address] SHAY PINEDA Comment on above: Performed By: #### PSASC #### [facility] [address] [place] [address] Dr. Sherman Santos History of repair of musculotendinous cuff of shoulder S/P right rotator cuff repair DO Shay Pineda Work Phone: Comment on above: Problem List clean-up per request of Angela sNaeem HARTMANN Cmte Plan of Treatment Date Care Activity Detail Author Start: 09-07-2024 End: 09-07-2024 Patient encounter procedure [facility] Comment on above: Hallux rigidus of right foot (Primary Dx ); Capsulitis of metatarsophalangeal (MTP) joint of right foot; DJD (degenerative joint disease), ankle and foot, right; Pain due to onychomycosis of toenails of both feet Start: 09-04-2024 Plain X-ray of right shoulder XR shoulder RT min 2V* [facility] Start: 09-04-2024 XR Shoulder - right Views [facility] Start: 07-11-2024 End: 07-11-2024 Patient encounter procedure 07/11/2024 3:10 PM EDT Office Visit [facility] [address] [place] [id number] Jacobo De Los Santos DPM [address] [facility] [address] [place] [address] Hallux rigidus of right foot (Primary Dx); Capsulitis of metatarsophalangeal (MTP) joint of right foot; DJD (degenerative joint disease), ankle and foot, right [facility] Comment on above: Hallux rigidus of right foot (Primary Dx ); Capsulitis of metatarsophalangeal (MTP) joint of right foot; DJD (degenerative joint disease), ankle and foot, right Start: 02-01-2024 End: 02-01-2024 Patient encounter procedure 02/01/2024 10:50 AM EST Office Visit [facility] [address] [facility] [address] [place] [id number] Alex Garcia MD [address] [facility] [address] [place] [address] Arrived [facility] Comment on above: Arrived Start: 01-24-2024 Patient referral [facility] Work Phone: Comprehensive metabo lic 2000 panel - Serum or Plasma [facility] Patient referral [facility] Work Phone: [facility] Immunizations Immunization Date Immunization Notes Care Provider Fa cility 01-04-2023 influenza virus vaccine, unspecified formulation [facility] 01-10-2022 influenza virus vaccine, split virus (incl. purified surface antigen) Shay Pineda Other [facility] Other 01-10-2022 influenza virus vaccine, unspecified formulation [facility] 01-10-2022 influenza, high dose seasonal, preservative-free Shay Pineda Other [facility] Other 10-08-2021 pneumococcal polysaccharide vaccine, 23 valent Shay Pineda Other [facility] 01-20-2021 COVID-19 mRNA-1273 (Moderna) DO Shay Pineda Work Phone: [facility] 12-07-2020 influenza virus vaccine, split virus (incl. purified surface antigen) Shay Pineda Other [facility] Other 12-07-2020 influenza virus vaccine, unspecified formulation [facility] 10-26-2020 influenza virus vaccine, unspecified formulation [facility] 06-24-2020 COVID-19 Vaccine Moderna - Documentation Purposes Only Hawa Olexa Other [facility] 05-27-2020 COVID-19 Vaccine Moderna - Documentation Purposes Only Hawa Olexa Other [facility] 04-15-2020 zoster vaccine recombinant Shay Pineda Other [facility] 04-15-2020 zoster vaccine, live Benjami n Ball Other [facility] 02-01-2020 zoster vaccine recombinant Shay Pineda Other [facility] 02-01-2020 zoster vaccine, live Benjami n Ball Other [facility] 01-25-2020 pneumococcal conjuga te vaccine, 13 valent Shay Pineda Other [facility] Payers Date Payer Category Payer Self-pay [id number] 2023 Private Health Insurance [employer] [id number] 2012 Medicare MEDICARE [id number] 2012 () [id number] 2012 [employer] ( and others) [id number]. 1959 [employer] ( and others) [id number] 1959 [employer] ( and others) [id number] 1957 Medicare [id number] [id number]. 1959 Unknown [id number] 2.16.840.1.598084. 1945 Unknown [id number] 2.16840.1.542634.3.579.2. 593 1945 Unknown [id number] 2.16840.1.659459.3.579.2. 593 1945 Unknown [id number] 2.16.840.1.226540.3.579.2. 593 1945 Unknown [id number] 2.16.840.1.381017.3.579.2. 593 1945 Unknown [id number] 2.16.840.1.717897.3.579.2. 1259 1945 Unknown [id number] 2.16.840.1.377458.3.579.2. 1259 1947 Unknown [id number] 2.16.840.1.238039.3.579.2. 1259 1945 Unknown [id number] 2.16.840.1.019279.3.579.2. 1259 1947 Unknown [id number] 2.16.840.1.509899.3.579.2. 1259 Unknown [id number] 2.16.840.1.364780.3.579.2. 593 Unknown [id number] 2.16.840.1.852963.3.579.2. 593 Unknown [id number] 2.16.840.1.658799.3.579.2. 531 Unknown [id number] 2.16.840.1.927062.3.579.2. 531 Social History Date Type Detail Facility Start: 09-03-2021 Tobacco smoking status Heavy tobacco smoker (finding) [facility] Other Start: 02-01-2024 End: 07-11-2024 Sex Assigned At Male [facility] Other Start: 03-05-2021 End: 03-05-2021 Tobacco smoking status NHIS Smoker (finding) [facility] Start: 1945 Sex Assigned At Male [facility] Tobacco smoking status MNIS Tobacco smoking consumption unknown [facility] Start: 1945 Sex assigned at Not on file [facility] Start: 03-05-2021 End: 02-01-2024 Tobacco smoking status NHIS Smokes tobacco daily [facility] History of tobacco use Cigarette Smoker [facility] Start: 02-01-2024 Tobacco use and exposure Smokeless tobacco non-user [facility] Start: 02-01-2024 End: 09-07-2024 Alcoholic beverage intake Current drinker of alcohol (finding) [facility] Start: 02-01-2024 End: 07-11-2024 History of Social function [facility] Start: 05-15-2024 End: 09-05-2024 Sex Male (finding) [facility] Medical Equipment Procedure Code Equipment Code Equipment Origin al Text Equipment Identifier Dates Arthroscopy, shoulder Tendon/ligament bone anchor, bioabsorbable [id number] FDA Start: 02-27-2021 Arthroscopy, shoulder Tendon/ligament bone anchor, bioabsorbable [id number] FDA Start: 02-27-2021 Functional Status Date Assessment Result Facility 09-23-2021 Functional Status N/A [facility] Clinical Notes 01-29-2021 to 09-07-2024 HEATHER MackM - 09/07/2024 2:10 PM EDT Note Date & Type Note Facility 09-07-2024 History of Presen t illness Narrative Patient: Dai العلي : 1945 PCP: Shay Pineda, DO SUBJECTIVE Pt presents today for follow up of capsulitis and synovitis to the right 1st MPJ with history of hallux rigidus and DJD Currently they rate their pain on a 1-10 scale a 0-1 States prior treatments of steroid injection and nsaids with improvement in the past. Patient presents today with a CC of elongated, thick nails. Pt states nails have been elongated and thick for many years and cause pain with ambulation in shoegear. Pt has tried previous treatment with minimal relief. Pt presents today for nail care and treatment. Allergies: Allergies Allergen Reactions Atorvastatin Other Reaction(s): UNK Past Medical History: No past medical history on file. Medications: Current Outpatient Medications: ascorbic acid (Vitamin C) 500 mg/mL oral liquid, , Disp: , Rfl: cholecalciferol (Vitamin D-3) 125 MCG (5000 UT) capsule, Daily, Disp: , Rfl: Cyanocobalamin (Vitamin B 12) 100 MCG lozenge, Take by mouth, Disp: , Rfl: Echinacea 650 MG capsule, Take by mouth, Disp: , Rfl: etodolac (Lodine) 500 MG tablet, TAKE 1 TABLET BY MOUTH TWICE A DAY FOR 15 DAYS, Disp: , Rfl: Glucosamine HCl 1500 MG tablet, Daily, Disp: , Rfl: ipratropium (Atrovent) 0.06 % nasal spray, Administer 2 sprays into each nostril in the morning and 2 sprays in the evening and 2 sprays before bedtime., Disp: 45 mL, Rfl: 3 lisinopril 40 MG tablet, Daily, Disp: , Rfl: milk thistle 175 MG tablet, Take 175 mg by mouth Daily, Disp: , Rfl: Multiple Vitamins-Minerals (ONE A DAY MEN 50 PLUS PO), 1 tablet, Disp: , Rfl: niacin (Niaspan) 500 MG ER tablet, Daily, Disp: , Rfl: POTASSIUM GLUCONATE PO, Daily, Disp: , Rfl: pyridoxine (B-6) 100 MG tablet, Twice a Week, Disp: , Rfl: Turmeric 400 MG capsule, Daily, Disp: , Rfl: Social History: Social History Socioeconomic History Marital status: Spouse name: Not on file Number of children: Not on file Years of education: Not on file Highest education level: Not on file Occupational History Not on file Tobacco Use Smoking status: Every Day Types: Cigarettes Smokeless tobacco: Never Substance and Sexual Activity Alcohol use: Yes Alcohol/week: 1.0 - 2.0 standard drink of alcohol Types: 1 - 2 Cans of beer per week Drug use: Never Sexual activity: Defer Other Topics Concern Not on file Social History Narrative Not on file Social Drivers of Health Financial Resource Strain: Not on file Food Insecurity: Not on file Transportation Needs: Not on file Physical Activity: Not on file Stress: Not on file Social Connections: Not on file Intimate Partner Violence: Not on file Housing Stability: Not on file ROS: Gastrointestinal: denies abdominal pain, ulcers, or changes in appetite or bowel habits Musculoskeletal: Positive generalized arthritis to joints and denies loss of strength. Cardiovascular: denies CP, palpitations, irregular rhythms OBJECTIVE LE EXAM: DERM: Positive hair growth to b/l feet with good skin turgor noted. Negative openings in skin Elongated thick yellow crumbly nails digits 1 through 10 VASC: Palpable pedal pulsed b/l with warm to cool tibia to toes b/l NEURO: Gross sensation intact digits 1-10 and b/l feet ORTHO: +5/5 DF/PF/IN/EV right, +5/5 DF/PF/IN/EV left. 20 degrees inversion and 10 degrees eversion STJ b/l. Ankle ROM less than 10 degrees b/l. Positive pain on palpation to toenails of the left 1,2,3,4,5 toes and right 1,2,3,4,5 toes Range of motion of 1st MPJ less than 65 degrees dorsiflexion with. minimalpain on palpation of right 1st MPJ capsule ASSESSMENT 1. Hallux rigidus of right foot 2. Capsulitis of metatarsophalangeal (MTP) joint of right foot 3. DJD (degenerative joint disease), ankle and foot, right 4. 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 acute October 25, 2024 8:36am Hypercholesterolemia acute October 25, 2024 8:36am Lung nodule, multiple acute Davon 2024 8:36am Mucopurulent chronic bronchitis acute October 25, 2024 8:36am Nicotine addiction acute September 272024 8:36am Primary hypertension acute October 25, 2024 8:36am Screening PSA (prostate specific antigen) acute October 25 8:36am Tubular adenoma of colon acute October 25, 2024 8:36am Wellness examination noneactive October 25, 2024 8:36am [facility] Work Phone: [phone] 335-266904-16-2025 History of Present illness Narrative* Jacobo De Los Santos, DPM - 07/11/2024 3:10 PM EDT Patient: Dai العلي : 1945 PCP: Shay Pineda MD SUBJECTIVE Pt presents today for follow up of capsulitis and synovitis to the right 1st MPJ with history of hallux rigidus and DJD Currently they rate their pain on a 1-10 scale a 0-1 States prior treatments of steroid injection and nsaids with improvement States pain is aggrevated with WB. Patient initially had issue secondary to dropping object on his right foot Allergies: Allergies Allergen Reactions Atorvastatin Other Reaction(s): UNK Past Medical History: No past medical history on file. Medications: Current Outpatient Medications: ascorbic acid (Vitamin C) 500 mg/mL oral liquid, , Disp: , Rfl: cholecalciferol (Vitamin D-3) 125 MCG (5000 UT) capsule, Daily, Disp: , Rfl: Cyanocobalamin (Vitamin B 12) 100 MCG lozenge, Take by mouth, Disp: , Rfl: Echinacea 650 MG capsule, Take by mouth, Disp: , Rfl: etodolac (Lodine) 500 MG tablet, TAKE 1 TABLET BY MOUTH TWICE A DAY FOR 15 DAYS, Disp: , Rfl: Glucosamine HCl 1500 MG tablet, Daily, Disp: , Rfl: ipratropium (Atrovent) 0.06 % nasal spray, Administer 2 sprays into each nostril in the morning and2 sprays in the evening and 2 sprays before bedtime., Disp: 45 mL, Rfl: 3 lisinopril 40 MG tablet, Daily, Disp: , Rfl: milk thistle 175 MG tablet, Take 175 mg by mouth Daily, Disp: , Rfl: Multiple Vitamins-Minerals (ONE A DAY MEN 50 PLUS PO), 1 tablet, Disp: , Rfl: niacin (Niaspan) 500 MG ER tablet, Daily, Disp: , Rfl: POTASSIUM GLUCONATE PO, Daily, Disp: , Rfl: pyridoxine (B-6) 100 MG tablet, Twice a Week, Disp: , Rfl: Turmeric 400 MG capsule, Daily, Disp: , Rfl: Social History: Social History Socioeconomic History Marital status: Spouse name: Not on file Number of children: Not on file Years of education: Not on file Highest education level: Not on file Occupational History Not on file Tobacco Use Smoking status: Every Day Types: Cigarettes Smokeless tobacco: Never Substance and Sexual Activity Alcohol use: Yes Alcohol/week: 1.0 - 2.0 standard drink of alcohol Types: 1 - 2 Cans of beer per week Drug use: Never Sexual activity: Defer Other Topics Concern Not on file Social History Narrative Not on file Social Drivers of Health Financial Resource Strain: Not on file Food Insecurity: Not on file Transportation Needs: Not on file Physical Activity: Not on file Stress: Not on file Social Connections: Not on file Intimate Partner Violence: Not on file Housing Stability: Not on file ROS: Gastrointestinal: denies abdominal pain, ulcers, or changes in appetite or bowel habits Musculoskeletal: Positive generalized arthritis to joints and denies loss of strength. Cardiovascular: denies CP, palpitations, irregular rhythms OBJECTIVE LE EXAM: DERM: Positive hair growth to b/l feet with good skin turgor noted. Negative openings in skin Elongated thick yellow crumbly nails digits 1 through 10 VASC: Palpable pedal pulsed b/l with warm to cool tibia to toes b/l NEURO: Gross sensation intact digits 1-10 and b/l feet ORTHO: +5/5 DF/PF/IN/EV right, +5/5 DF/PF/IN/EV left. 20 degrees inversion and 10 degrees eversion STJ b/l. Ankle ROM less than 10 degrees b/l. Positive pain on palpation to toenails of the left 1,2,3,4,5 toes and right 1,2,3,4,5 toes Range of motion of 1st MPJ less than 65 degrees dorsiflexion with. Minimal to no pain on palpation of right 1st MPJ capsule ASSESSMENT 1. Hallux rigidus of right foot 2. Capsulitis of metatarsophalangeal (MTP) joint of right foot 3. DJD (degenerative joint disease), ankle and foot, right PLAN Patient to continue with oral anti - inflammatories as needed for pain and recommended OTC medications such as tylenol or Ibuprofen Patient may need follow up injection future and also discussed possible bio Pro implant if symptomsreturn Jacobo De Los Santos DPM [id number] History of Present illness Narrative* Jacobo De Los Santos DPM - 06/27/2024 4:40 PM EDT Patient: Dai العلي : 1945 PCP: Shay Pineda MD SUBJECTIVE This is a 79 y.o. male that presents today for a chief complaint of pain to the right great toe joint region after dropping object on his toe 1 week ago. He states pain up to a 5/10 has tried anti-inflammatories with minimal improvement but states he has had long-term issues with his great toe joint in the past particularly with weight-bearing activities. Patient presents today with a CC of elongated, thick nails. Pt states nails have been elongated and thick for many years and cause pain with ambulation in shoegear. Pt has tried previous treatment with minimal relief. Pt presents today for nail care and treatment. Allergies: Allergies Allergen Reactions Atorvastatin Other Reaction(s): UNK Past Medical History: History reviewed. No pertinent past medical history. Medications: Current Outpatient Medications: ascorbic acid (Vitamin C) 500 mg/mL oral liquid, , Disp: , Rfl: cholecalciferol (Vitamin D-3) 125 MCG (5000 UT) capsule, Daily, Disp: , Rfl: Cyanocobalamin (Vitamin B 12) 100 MCG lozenge, Take by mouth, Disp: , Rfl: Echinacea 650 MG capsule, Take by mouth, Disp: , Rfl: etodolac (Lodine) 500 MG tablet, TAKE 1 TABLET BY MOUTH TWICE A DAY FOR 15 DAYS, Disp: , Rfl: Glucosamine HCl 1500 MG tablet, Daily, Disp: , Rfl: ipratropium (Atrovent) 0.06 % nasal spray, Administer 2 sprays into each nostril in the morning and2 sprays in the evening and 2 sprays before bedtime., Disp: 45 mL, Rfl: 3 lisinopril 40 MG tablet, Daily, Disp: , Rfl: milk thistle 175 MG tablet, Take 175 mg by mouth Daily, Disp: , Rfl: Multiple Vitamins-Minerals (ONE A DAY MEN 50 PLUS PO), 1 tablet, Disp: , Rfl: niacin (Niaspan) 500 MG ER tablet, Daily, Disp: , Rfl: POTASSIUM GLUCONATE PO, Daily, Disp: , Rfl: pyridoxine (B-6) 100 MG tablet, Twice a Week, Disp: , Rfl: Turmeric 400 MG capsule, Daily, Disp: , Rfl: Social History: Social History Socioeconomic History Marital status: Spouse name: Not on file Number of children: Not on file Years of education: Not on file Highest education level: Not on file Occupational History Not on file Tobacco Use Smoking status: Every Day Types: Cigarettes Smokeless tobacco: Never Substance and Sexual Activity Alcohol use: Yes Alcohol/week: 1.0 - 2.0 standard drink of alcohol Types: 1 - 2 Cans of beer per week Drug use: Never Sexual activity: Defer Other Topics Concern Not on file Social History Narrative Not on file Social Drivers of Health Financial Resource Strain: Not on file Food Insecurity: Not on file Transportation Needs: Not on file Physical Activity: Not on file Stress: Not on file Social Connections: Not on file Intimate Partner Violence: Not on file Housing Stability: Not on file ROS: Gastrointestinal: denies abdominal pain, ulcers, or changes in appetite or bowel habits Musculoskeletal: Positive generalized arthritis to joints and denies loss of strength. Cardiovascular: denies CP, palpitations, irregular rhythms OBJECTIVE LE EXAM: DERM: Positive hair growth to b/l feet with good skin turgor noted. Negative openings in skin Elongated thick yellow crumbly nails digits 1 through 10 VASC: Palpable pedal pulsed b/l with warm to cool tibia to toes b/l NEURO: Gross sensation intact digits 1-10 and b/l feet ORTHO: +5/5 DF/PF/IN/EV right, +5/5 DF/PF/IN/EV left. 20 degrees inversion and 10 degrees eversion STJ b/l. Ankle ROM less than 10 degrees b/l. Positive pain on palpation to toenails of the left 1,2,3,4,5 toes and right 1,2,3,4,5 toes Range of motion of 1st MPJ less than 65 degrees dorsiflexion with positive palpation of right 1st MPJ capsule XRAY: XR foot 3+ views right Imaging Result: Notable degenerative changes to 1st MPJ with decreased joint space narrowing and negative fractures identified with increase of interphalangeal angle of the right hallux IPJ US: ASSESSMENT 1. DJD (degenerative joint disease), ankle and foot, right 2. Hallux rigidus of right foot 3. Acquired deformity of right toe 4. Capsulitis of metatarsophalangeal (MTP) joint of right foot 5. Pain due to onychomycosis of toenails of both feet PLAN Patient to continue with oral anti - inflammatories as needed for pain and recommended OTC medications such as tylenol or Ibuprofen Reviewed x-rays today with patient Reviewed ultrasound Pt was given steroid injection to the medial and lateral capsular ligaments of the right 1st MPJ under US guidance with visualization of injected fluid into area of concern per imaging. Injection consisted of a 2:1 mixture of xylocaine 2%plain and kenalog 10 for a total of 3ccs. Informed pt of risks and benefits of procedure including infection,damage or rupture to soft tissuestructures and steroid flare. Pt understood and consented. This is the patients 1st injection Discussed proper foot care with patient today. Debride nails in length and thickness digits 1 through 10 Jacobo De Los Santos DPM documented in this encounterSaint [facility] [id number] History of Present illness Narrative* Jacobo De Los Santos DPM - 06/27/2024 4:40 PM EDT Patient: Dai العلي : 1945 PCP: Shay Pineda MD SUBJECTIVE This is a 79 y.o. male that presents today for a chief complaint of pain to the right great toe joint region after dropping object on his toe 1 week ago. He states pain up to a 5/10 has tried anti-inflammatories with minimal improvement but states he has had long-term issues with his great toe joint in the past particularly with weight-bearing activities. Patient presents today with a CC of elongated, thick nails. Pt states nails have been elongated and thick for many years and cause pain with ambulation in shoegear. Pt has tried previous treatment with minimal relief. Pt presents today for nail care and treatment. Allergies: Allergies Allergen Reactions Atorvastatin Other Reaction(s): UNK Past Medical History: History reviewed. No pertinent past medical history. Medications: Current Outpatient Medications: ascorbic acid (Vitamin C) 500 mg/mL oral liquid, , Disp: , Rfl: cholecalciferol (Vitamin D-3) 125 MCG (5000 UT) capsule, Daily, Disp: , Rfl: Cyanocobalamin (Vitamin B 12) 100 MCG lozenge, Take by mouth, Disp: , Rfl: Echinacea 650 MG capsule, Take by mouth, Disp: , Rfl: etodolac (Lodine) 500 MG tablet, TAKE 1 TABLET BY MOUTH TWICE A DAY FOR 15 DAYS, Disp: , Rfl: Glucosamine HCl 1500 MG tablet, Daily, Disp: , Rfl: ipratropium (Atrovent) 0.06 % nasal spray, Administer 2 sprays into each nostril in the morning and2 sprays in the evening and 2 sprays before bedtime., Disp: 45 mL, Rfl: 3 lisinopril 40 MG tablet, Daily, Disp: , Rfl: milk thistle 175 MG tablet, Take 175 mg by mouth Daily, Disp: , Rfl: Multiple Vitamins-Minerals (ONE A DAY MEN 50 PLUS PO), 1 tablet, Disp: , Rfl: niacin (Niaspan) 500 MG ER tablet, Daily, Disp: , Rfl: POTASSIUM GLUCONATE PO, Daily, Disp: , Rfl: pyridoxine (B-6) 100 MG tablet, Twice a Week, Disp: , Rfl: Turmeric 400 MG capsule, Daily, Disp: , Rfl: Social History: Social History Socioeconomic History Marital status: Spouse name: Not on file Number of children: Not on file Years of education: Not on file Highest education level: Not on file Occupational History Not on file Tobacco Use Smoking status: Every Day Types: Cigarettes Smokeless tobacco: Never Substance and Sexual Activity Alcohol use: Yes Alcohol/week: 1.0 - 2.0 standard drink of alcohol Types: 1 - 2 Cans of beer per week Drug use: Never Sexual activity: Defer Other Topics Concern Not on file Social History Narrative Not on file Social Drivers of Health Financial Resource Strain: Not on file Food Insecurity: Not on file Transportation Needs: Not on file Physical Activity: Not on file Stress: Not on file Social Connections: Not on file Intimate Partner Violence: Not on file Housing Stability: Not on file ROS: Gastrointestinal: denies abdominal pain, ulcers, or changes in appetite or bowel habits Musculoskeletal: Positive generalized arthritis to joints and denies loss of strength. Cardiovascular: denies CP, palpitations, irregular rhythms OBJECTIVE LE EXAM: DERM: Positive hair growth to b/l feet with good skin turgor noted. Negative openings in skin Elongated thick yellow crumbly nails digits 1 through 10 VASC: Palpable pedal pulsed b/l with warm to cool tibia to toes b/l NEURO: Gross sensation intact digits 1-10 and b/l feet ORTHO: +5/5 DF/PF/IN/EV right, +5/5 DF/PF/IN/EV left. 20 degrees inversion and 10 degrees eversion STJ b/l. Ankle ROM less than 10 degrees b/l. Positive pain on palpation to toenails of the left 1,2,3,4,5 toes and right 1,2,3,4,5 toes Range of motion of 1st MPJ less than 65 degrees dorsiflexion with positive palpation of right 1st MPJ capsule XRAY: XR foot 3+ views right Imaging Result: Notable degenerative changes to 1st MPJ with decreased joint space narrowing and negative fractures identified with increase of interphalangeal angle of the right hallux IPJ US: ASSESSMENT 1. DJD (degenerative joint disease), ankle and foot, right 2. Hallux rigidus of right foot 3. Acquired deformity of right toe 4. Capsulitis of metatarsophalangeal (MTP) joint of right foot 5. Pain due to onychomycosis of toenails of both feet PLAN Patient to continue with oral anti - inflammatories as needed for pain and recommended OTC medications such as tylenol or Ibuprofen Reviewed x-rays today with patient Reviewed ultrasound Pt was given steroid injection to the medial and lateral capsular ligaments of the right 1st MPJ under US guidance with visualization of injected fluid into area of concern per imaging. Injection consisted of a 2:1 mixture of xylocaine 2%plain and kenalog 10 for a total of 3ccs. Informed pt of risks and benefits of procedure including infection,damage or rupture to soft tissuestructures and steroid flare. Pt understood and consented. This is the patients 1st injection Discussed proper foot care with patient today. Debride nails in length and thickness digits 1 through 10 Jacobo De Los Santos DPM documented in this encounterSaint Luke's [id number] Evaluation note* Diagnosis Onset Date Resolution Status Admit Date Nicotine addiction acute June 12, 2024 8:13am Primary hypertension acute Dennis h 2024 8:13am Right shoulder pain acute June 12, 2024 8:13am Rotator cuff tendonitis acute M arch 2024 8:13am Primary osteoarthritis, righ t shoulder acute September 04, 2024 9:38am Right shoulder tendonitis acute September 04, 2024 9:38am Tear of right supraspinatus tendon acute September 04, 2024 9:38am [facility] Work Phone: 1(519) 704-484302-18-2025 Evaluation note* Diagnosis Onset Date Resolution Status Admit Date Primary hypertension acute Febr uary 2024 8:28am Acute bronchitis due to other specified organisms noneactive Februa ry 2024 8:28am Nicotine addiction acute June 12, 2024 8:13am Primary hypertension acute Dennis h 2024 8:13am Right shoulder pain acute June 12, 2024 8:13am Rotator cuff tendonitis acute M arch 2024 8:13am [facility] Work Phone: 1(241) 780-385812-11-2024 Evaluation note* Diagnosis Onset Date Resolution Status Admit Date Mucopurulent chronic bronchitis acute March 07, 2 024 8:46am Nicotine addiction acute Decemb er 2023 8:46am Primary hypertension acute Dece mber 2023 8:46am Right shoulder pain acute Decem cruz 2023 8:46am Rotator cuff tendonitis acute D ecember 2023 8:46am [facility] Work Phone: 1(874) 606-161511-06-2024 History of Present illness Narrative* Alex Garcia MD - 02/01/2024 10:50 AM EST Subjective Patient ID: Dai العلي is a 78 y.o. male who presents for Vasomotor Rhinitis Pt reports profuse rhinorrhea when eats. Tx with geoff, flonase and states it helped a bit. An old bottle of atrovent did not help. Review of Systems All other systems reviewed and are negative. No family history on file. 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 02/01/2024 Benign prostatic hyperplasia with lower urinary tract symptoms 02/01/2024 Chronic vasomotor rhinitis 02/01/2024 Resolved Ambulatory Problems Diagnosis Date Noted No Resolved Ambulatory Problems No Additional Past Medical History Past Surgical History: Procedure Laterality Date LEG SURGERY bone tumar removed 1967 Allergies Allergen Reactions Atorvastatin Other Reaction(s): UNK Current Outpatient Medications on File Prior to Visit Medication Sig Dispense Refill ascorbic acid (Vitamin C) 500 mg/mL oral liquid cholecalciferol (Vitamin D-3) 125 MCG (5000 UT) capsule Daily Cyanocobalamin (Vitamin B 12) 100 MCG lozenge Take by mouth Echinacea 650 MG capsule Take by mouth etodolac (Lodine) 500 MG tablet TAKE 1 TABLET BY MOUTH TWICE A DAY FOR 15 DAYS Glucosamine HCl 1500 MG tablet Daily lisinopril 40 MG tablet Daily milk thistle 175 MG tablet Take 175 mg by mouth Daily Multiple Vitamins-Minerals (ONE A DAY MEN 50 PLUS PO) 1 tablet niacin (Niaspan) 500 MG ER tablet Daily POTASSIUM GLUCONATE PO Daily pyridoxine (B-6) 100 MG tablet Twice a Week Turmeric 400 MG capsule Daily No current facility-administered medications on file prior to visit. Objective Last Recorded Vitals Vitals: 02/01/24 1047 BP: 127/80 ENT Physical Exam Constitutional Appearance: patient appears well-developed and well-nourished, Head and Face Appearance: head appears normal and face appears atraumatic; Ear Ear comments: Richi ears normal Nose External Nose: nares patent bilaterally; external nose normal; Internal Nose: nasal mucosa normal; Oral Cavity/Oropharynx Lips: normal; Teeth: normal; Gums: gingiva normal; Tongue: normal; Oral mucosa: normal; Hard palate: normal; Neck Neck: neck normal; neck palpation normal; Thyroid: thyroid normal; Respiratory Inspection: breathing unlabored; normal breathing rate; Auscultation: breath sounds are clear; Cardiovascular Inspection: extremities are warm and well perfused; no peripheral edema present; Auscultation: regular rate and rhythm; Assessment/Plan Diagnoses and all orders for this visit: Chronic vasomotor rhinitis Pt clearly has vasomotor rhinitis. I will restart ipratropium that he can use TID. If not adequately controlled I will arrange for a Clarafix procedure. documented in this encounterSaint Luke's [id number] Evaluation note* Encounter Date Diagnosis Assessment Notes Treatment Notes Treatment Clinical Notes Dec, Hyperlipidemia type II (ICD-10 - E78.01) Instructed on diet and exercise.Discussed the beneficial effects of lowering cholesterol in reducing the risk for cerebrovascular and cardiovascular disease. Dec, Primary hypertension (ICD-10 - I10) This patient is instructed to consume a healthy, low-fat, low-salt diet. They are also encouraged to continue exercise to achieve/maintain a normal BMI. Patient is instructed on home BP measurements: - rest for 5 minutes w/o talking- positioned w/ feet on floor and arm supported- average best 2/3 readings w/ goal < 135/85 Dec, Cigarette nicotine dependence without complication (ICD-10 - F17.210) This patient has been encouraged to quit tobacco use immediately. They are aware of the hazards associated with tobacco use, including but not limited to respiratory infections, vascular disease and cancers. 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 Dec, Mucopurulent chronic bronchitis (ICD-10 - J41.1) Instructed on smoking cessation. No need for inhalers. No ER visits for AECOPD Dec, Vasomotor rhinitis (ICD-10 - J30.0) Reassure, chronic w/o cure. 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) Dec, Benign prostatic hyperplasia with lower urinary tract symptoms (ICD-10 - N40.1) Symptoms tolerable, yearly PSA Dec, Tubular adenoma of colon (ICD-10 - D12.6) Not sure when next scope scheduled Will review notes Denies change in appetite, bowel habits, melena or hematochezia [facility] Other 04-27-2023 Evaluation note* Encounter Date Diagnosis Assessment Notes Treatment Notes Treatment Clinical Notes Jun, Hyperlipidemia type II (ICD-10 - E78.01) Instructed on diet and exercise with continued statin therapy.Discussed the beneficial effects of lowering cholesterol in reducing the risk for cerebrovascular and cardiovascular disease. Jun, Wellness examination (ICD-10 - Z00.00) Healthy diet and exercise. Reviewed age-appropriate preventive testing recommended. Jun, Primary hypertension (ICD-10 - I10) This patient is instructed to consume a healthy, low-fat, low-salt diet. They are also encouraged to continue exercise to achieve/maintain a normal BMI. Patient is instructed on home BP measurements: - rest for 5 minutes w/o talking- positioned w/ feet on floor and arm supported- average best 2/3 readings w/ goal < 135-85 Jun, Cigarette nicotine dependence without complication (ICD-10 - F17.210) This patient has been encouraged to quit tobacco use immediately. They are aware of the hazards associated with tobacco use, including but not limited to respiratory infections, vascular disease and cancers. 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 Surveillance EGD per GI He denies persistent heartburn or dysphagia Jun, Benign prostatic hyperplasia with lower urinary tract symptoms (ICD-10 - N40.1) Symptoms tolerable, denies dysuria or hematuria Jun, Tubular adenoma of colon (ICD-10 - D12.6) UTD w/ surveillance scopes, next due in 4 years Denies appetite or bowel habit changes Jun, Screening PSA (prostate specific antigen) (ICD-10 - Z12.5) Jun, High risk medication use (ICD-10 - Z79.899) Jun, Other Personalized he alth advice was given to the beneficiary including a written plan for screenings discussed and provided. Advanced care planning reviewed and/or information given as requested. Additional counseling was provided here today in regards to, [ ]. The above visit was performed by [ ], under direct supervision of [ ]. Document reviewed and amended by provider signed below. Healthy diet and exercise. Reviewed age-appropriate preventive testing recommended. [facility] Other 03-30-2023 Evaluation note* Encounter Date Diagnosis Assessment Notes Treatment Notes Treatment Clinical Notes May, Tear of right supraspinatus tendon (ICD-10 - M75.101) May, Right shoulder tendinitis (ICD-10 - M77.8) Extensive discussion about current condition and treatment options available. This appears to be pain secondary to subacromial bursitis / rotator cuff tendonitis. We discussed and demonstrated gentle motion exercise and rotator cuff strengthening exercise. Discussed the use of non-steroidal anti-inflammatory medication. A 2/1cc marcaine / kenalog cortisone injection was performed into the subacromial space under sterile technique. Patient tolerated the injection well with no adverse reaction. I suspect there may be recurrent tear progressing. Discussed limiting heavy activity away from the body. May, Osteoarthritis of ri ght acromioclavicular joint (ICD-10 - M19.011) May, Other specified postprocedural states (ICD-10 - Z98.890) [facility] Other 01-24-2023 Evaluation note* Encounter Date Diagnosis Assessment Notes Treatment Notes Treatment Clinical Notes Mar, Hyperlipidemia type II (ICD-10 - E78.01) Diet and exercise with continued statin therapy. Mar, Primary hypertension (ICD-10 - I10) This patient is instructed to consume a healthy, low-fat, low-salt diet. They are also encouraged to continue exercise to achieve/maintain a normal BMI. Mar, Chronic bronchitis, mucopurulent (ICD-10 - J41.1) Mucinex for cough, instructed on smoking cessation. No ER visits for AECOPD. 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 Healthy diet and limit alcohol to 2 daily. Mar, Benign prostatic hyperplasia with lower urinary tract symptoms (ICD-10 - N40.1) Symptoms tolerable, yearly PSA and TATUM Mar, Lung nodule, multipl e (ICD-10 - R91.8) Smoking cessation discussed. LDCT LR 2 Yearly LDCT chest to r/o cancer. 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 They are aware of the hazards associated with tobacco use, including but not limited to respiratory infections, vascular disease and cancers. [facility] Other 06-30-2022 Note [id number] 09-23-2021 Hospital Discharge instructions Patient Education 09/23/2021 13:01:51 Esophagitis Esophagitis Esophagitis is inflammation of the esophagus. The esophagus is the tube that carries food from yourmouth to your stomach. Esophagitis can cause soreness or pain in the esophagus. This condition can make it difficult and painful to swallow. What are the causes? Most causes of esophagitis are not serious. Common causes of this condition include: Gastroesophageal reflux disease (GERD). This is when stomach contents move back up into the esophagus (reflux). Repeated vomiting. An allergic reaction, especially caused by food allergies (eosinophilic esophagitis). Injury to the esophagus by swallowing large pills with or without water, or swallowing certain types of medicines. Swallowing (ingesting) harmful chemicals, such as household cleaning products. Heavy alcohol use. An infection of the esophagus. This most often occurs in people who have a weakened immune system. Radiation or chemotherapy treatment for cancer. Certain diseases such as sarcoidosis, Crohn's disease, and scleroderma. What are the signs or symptoms? Symptoms of this condition include: Difficult or painful swallowing. Pain with swallowing acidic liquids, such as citrus juices. Pain with burping. Chest pain. Difficulty breathing. Nausea. Vomiting. Pain in the abdomen. Weight loss. Ulcers in the mouth. Patches of white material in the mouth (candidiasis). Fever. Coughing up blood or vomiting blood. Stool that is black, tarry, or bright red. How is this diagnosed? Your health care provider will take a medical history and perform a physical exam. You may also have other tests, including: An endoscopy to examine your esophagus and stomach with a small flexible tube with a camera. A test that measures the acidity level in your esophagus. A test that measures how much pressure is on your esophagus. A barium swallow or modified barium swallow to show the shape, size, and functioning of your esophagus. Allergy tests. How is this treated? Treatment for this condition depends on the cause of your esophagitis. In some cases, steroids or other medicines may be given to help relieve your symptoms or to treat the underlying cause of your condition. You may have to make some lifestyle changes, such as: Avoiding alcohol. Quitting smoking. Changing your diet. Exercising. Changing your sleep habits and your sleep environment. Follow these instructions at home: Medicines Take fhrg-ckr-emgosdp and prescription medicines only as told by your health care provider. Do not take aspirin, ibuprofen, or other NSAIDs unless your health care provider told you to do so. If you have trouble taking pills: ?Use a pill splitter to decrease the size of the pill. This will decrease the chance of the pill getting stuck or injuring your esophagus. ?Drink water after you take a pill. Eating and drinking Avoid foods and drinks that seem to make your symptoms worse. Follow a diet as recommended by your health care provider. This may involve avoiding foods and drinks such as: ?Coffee and tea (with or without caffeine). ?Drinks that contain alcohol. ?Energy drinks and sports drinks. ?Carbonated drinks or sodas. ?Chocolate and cocoa. ?Peppermint and mint flavorings. ?Garlic and onions. ?Horseradish. ?Spicy and acidic foods, including peppers, chili powder, sheffield powder, vinegar, hot sauces, and barbecue sauce. ?[place] fruit juices and citrus fruits, such as oranges, vikas, and limes. ?Tomato-based foods, such as red sauce, chili, salsa, and pizza with red sauce. ?Fried and fatty foods, such as donuts, yi fries, potato chips, and high-fat dressings. ?High-fat meats, such as hot dogs and fatty cuts of red and white meats, such as rib eye steak, sausage, ham, and frances. ?High-fat dairy items, such as whole milk, butter, and cream cheese. Lifestyle Eat small, frequent meals instead of large meals. Avoid drinking large amounts of liquid with your meals. Avoid eating meals during the 2 3 hours before bedtime. Avoid lying down right after you eat. Do not exercise right after you eat. Do not use any products that contain nicotine or tobacco, such as cigarettes and e-cigarettes. If you need help quitting, ask your health care provider. General instructions Pay attention to any changes in your symptoms. Let your health care provider know about them. Wear loose-fitting clothing. Do not wear anything tight around your waist that causes pressure on your abdomen. Raise (elevate) the head of your bed about 6 inches (15 cm). Try relaxation strategies such as yoga, deep breathing, or meditation to manage stress. If you needhelp reducing stress, ask your health care provider. If you are overweight, reduce your weight to an amount that is healthy for you. Ask your health care provider for guidance about a safe weight loss goal. Keep all follow-up visits as told by your health care provider. This is important. Contact a health care provider if: You have new symptoms. You have unexplained weight loss. You have difficulty swallowing, or it hurts to swallow. You have wheezing or a cough that does not go away. Your symptoms do not improve with treatment. You have frequent heartburn for more than two weeks. Get help right away if: You have severe pain in your arms, neck, jaw, teeth, or back. You feel sweaty, dizzy, or light-headed. You have chest pain or shortness of breath. You vomit and your vomit looks like blood or coffee grounds. Your stool is bloody or black. You have a fever. You cannot swallow, drink, or eat. Summary Esophagitis is inflammation of the esophagus. Most causes of esophagitis are not serious. Follow your health care provider's instructions about eating and drinking. Follow instructions on medicines. Contact a health care provider if you have new symptoms, have weight loss, or coughing that does not stop. Get help right away if you have severe pain in the arms, neck, jaw, teeth or back, or if you have chest pain, shortness of breath, or fever. This information is not intended to replace advice given to you by your health care provider. Make sure you discuss any questions you have with your health care provider. Document Released: 04/21/2005 Document Revised: 11/03/2018 Document Reviewed: 11/03/2018 [employer] Patient Education [employer] 09/23/2021 13:01:51 Upper Endoscopy, Adult, Care After Upper Endoscopy, Adult, Care After This sheet gives you information about how to care for yourself after your procedure. Your health care provider may also give you more specific instructions. If you have problems or questions, contact your health care provider. What can I expect after the procedure? After the procedure, it is common to have: A sore throat. Mild stomach pain or discomfort. Bloating. Nausea. Follow these instructions at home: Follow instructions from your health care provider about what to eat or drink after your procedure. Return to your normal activities as told by your health care provider. Ask your health care provider what activities are safe for you. Take dlzn-mja-vkbntxa and prescription medicines only as told by your health care provider. Do not drive for 24 hours if you were given a sedative during your procedure. Keep all follow-up visits as told by your health care provider. This is important. Contact a health care provider if you have: A sore throat that lasts longer than one day. Trouble swallowing. Get help right away if: You vomit blood or your vomit looks like coffee grounds. You have: ?A fever. ?Bloody, black, or tarry stools. ?A severe sore throat or you cannot swallow. ?Difficulty breathing. ?Severe pain in your chest or abdomen. Summary After the procedure, it is common to have a sore throat, mild stomach discomfort, bloating, and nausea. Do not drive for 24 hours if you were given a sedative during the procedure. Follow instructions from your health care provider about what to eat or drink after your procedure. Return to your normal activities as told by your health care provider. This information is not intended to replace advice given to you by your health care provider. Make sure you discuss any questions you have with your health care provider. Document Released: 09/12/2012 Document Revised: 09/05/2018 Document Reviewed: 08/14/2018 [employer] Patient Education [employer] 09/23/2021 13:01:51 Diverticulosis Diverticulosis Diverticulosis is a condition that develops when small pouches (diverticula) form in the wall of the large intestine (colon). The colon is where water is absorbed and stool is formed. The pouches form when the inside layer of the colon pushes through weak spots in the outer layers of the colon. Youmay have a few pouches or many of them. What are the causes? The cause of this condition is not known. What increases the risk? The following factors may make you more likely to develop this condition: Being older than age 60. Your risk for this condition increases with age. Diverticulosis is rare among people younger than age 30. By age 80, many people have it. Eating a low-fiber diet. Having frequent constipation. Being overweight. Not getting enough exercise. Smoking. Taking adat-blr-actgxdg pain medicines, like aspirin and ibuprofen. Having a family history of diverticulosis. What are the signs or symptoms? In most people, there are no symptoms of this condition. If you do have symptoms, they may include: Bloating. Cramps in the abdomen. Constipation or diarrhea. Pain in the lower left side of the abdomen. How is this diagnosed? This condition is most often diagnosed during an exam for other colon problems. Because diverticulosis usually has no symptoms, it often cannot be diagnosed independently. This condition may be diagnosed by: Using a flexible scope to examine the colon (colonoscopy). Taking an X-ray of the colon after dye has been put into the colon (barium enema). Doing a CT scan. How is this treated? You may not need treatment for this condition if you have never developed an infection related to diverticulosis. If you have had an infection before, treatment may include: Eating a high-fiber diet. This may include eating more fruits, vegetables, and grains. Taking a fiber supplement. Taking a live bacteria supplement (probiotic). Taking medicine to relax your colon. Taking antibiotic medicines. Follow these instructions at home: Drink 6 8 glasses of water or more each day to prevent constipation. Try not to strain when you have a bowel movement. If you have had an infection before: ?Eat more fiber as directed by your health care provider or your diet and nutrition partner (dietitian). ?Take a fiber supplement or probiotic, if your health care provider approves. Take pxcc-xpx-zvthusf and prescription medicines only as told by your health care provider. If you were prescribed an antibiotic, take it as told by your health care provider. Do not stop taking the antibiotic even if you start to feel better. Keep all follow-up visits as told by your health care provider. This is important. Contact a health care provider if: You have pain in your abdomen. You have bloating. You have cramps. You have not had a bowel movement in 3 days. Get help right away if: Your pain gets worse. Your bloating becomes very bad. You have a fever or chills, and your symptoms suddenly get worse. You vomit. You have bowel movements that are bloody or black. You have bleeding from your rectum. Summary Diverticulosis is a condition that develops when small pouches (diverticula) form in the wall of the large intestine (colon). You may have a few pouches or many of them. This condition is most often diagnosed during an exam for other colon problems. If you have had an infection related to diverticulosis, treatment may include increasing the fiber in your diet, taking supplements, or taking medicines. This information is not intended to replace advice given to you by your health care provider. Make sure you discuss any questions you have with your health care provider. Document Released: 12/09/2004 Document Revised: 02/24/2018 Document Reviewed: 01/31/2017 [employer] Patient Education 2020 [employer]. 09/23/2021 13:01:51 Colon Polyps Colon Polyps Polyps are tissue growths inside the body. Polyps can grow in many places, including the large intestine (colon). A polyp may be a round bump or a mushroom-shaped growth. You could have one polyp or several. Most colon polyps are noncancerous (benign). However, some colon polyps can become cancerous over time. Finding and removing the polyps early can help prevent this. What are the causes? The exact cause of colon polyps is not known. What increases the risk? You are more likely to develop this condition if you: Have a family history of colon cancer or colon polyps. Are older than 50 or older than 45 if you are . Have inflammatory bowel disease, such as ulcerative colitis or Crohn's disease. Have certain hereditary conditions, such as: ?Familial adenomatous polyposis. ?Michael syndrome. ?Turcot syndrome. ?Peutz Jeghers syndrome. Are overweight. Smoke cigarettes. Do not get enough exercise. Drink too much alcohol. Eat a diet that is high in fat and red meat and low in fiber. Had childhood cancer that was treated with abdominal radiation. What are the signs or symptoms? Most polyps do not cause symptoms. If you have symptoms, they may include: Blood coming from your rectum when having a bowel movement. Blood in your stool. The stool may look dark red or black. Abdominal pain. A change in bowel habits, such as constipation or diarrhea. How is this diagnosed? This condition is diagnosed with a colonoscopy. This is a procedure in which a lighted, flexible scope is inserted into the anus and then passed into the colon to examine the area. Polyps are sometimes found when a colonoscopy is done as part of routine cancer screening tests. How is this treated? Treatment for this condition involves removing any polyps that are found. Most polyps can be removed during a colonoscopy. Those polyps will then be tested for cancer. Additional treatment may be needed depending on the results of testing. Follow these instructions at home: Lifestyle Maintain a healthy weight, or lose weight if recommended by your health care provider. Exercise every day or as told by your health care provider. Do not use any products that contain nicotine or tobacco, such as cigarettes and e-cigarettes. If you need help quitting, ask your health care provider. If you drink alcohol, limit how much you have: ?0 1 drink a day for women. ? 0 2 drinks a day for men. Be aware of how much alcohol is in your drink. In the [place] one drink equals one 12 oz bottle of beer (355 mL), one 5 oz glass of wine (148 mL), or one 1 oz shot of hard liquor (44 mL). Eating and drinking Eat foods that are high in fiber, such as fruits, vegetables, and whole grains. Eat foods that are high in calcium and vitamin D, such as milk, cheese, yogurt, eggs, liver, fish, and broccoli. Limit foods that are high in fat, such as fried foods and desserts. Limit the amount of red meat and processed meat you eat, such as hot dogs, sausage, frances, and lunch meats. General instructions Keep all follow-up visits as told by your health care provider. This is important. ?This includes having regularly scheduled colonoscopies. ?Talk to your health care provider about when you need a colonoscopy. Contact a health care provider if: You have new or worsening bleeding during a bowel movement. You have new or increased blood in your stool. You have a change in bowel habits. You lose weight for no known reason. Summary Polyps are tissue growths inside the body. Polyps can grow in many places, including the colon. Most colon polyps are noncancerous (benign), but some can become cancerous over time. This condition is diagnosed with a colonoscopy. Treatment for this condition involves removing any polyps that are found. Most polyps can be removed during a colonoscopy. This information is not intended to replace advice given to you by your health care provider. Make sure you discuss any questions you have with your health care provider. Document Released: 12/08/2004 Document Revised: 06/29/2018 Document Reviewed: 06/29/2018 [employer] Patient Education 2020 [employer]. 09/23/2021 13:01:51 Colonoscopy, Care After Surgery [facility] (Custom) Colonoscopy Care After Surgery Please read the instructions outlined below and refer to this sheet in the next few weeks. These discharge instructions provide you with general information on caring for yourself after you leave thehospital. Your doctor may also give you specific instructions. While your treatment has been planned according to the most current medical practices available, unavoidable complications occasionally occur. If you have any problems or questions after discharge, please call your doctor. ACTIVITY You may resume your regular activity, but move at a slower pace for the next 24 hours. Take frequent rest periods for the next 24 hours. Walking will help get rid of the air and reduce the bloated feeling in your abdomen (belly). No driving for 24 hours (because of the anesthesia (medicine) used during the test). You may shower. Do not sign any important legal documents or operate any machinery for 24 hours (because of the anesthesia used during the test). NUTRITION Drink plenty of fluids. You may resume your normal diet as instructed by your doctor. Begin with a light meal and progress to your normal diet. Heavy or fried foods are harder to digestand may make you feel nauseated (sick to your stomach). Avoid alcoholic beverages for 24 hours or as instructed. MEDICATIONS You may resume your normal medications unless your doctor tells you otherwise. WHAT YOU CAN EXPECT TODAY Some feelings of bloating in the abdomen. Passage of more gas than usual. Spotting of blood in your stool or on the toilet paper. FOLLOW-UP Your doctor will discuss the results of your test with you. SEEK IMMEDIATE MEDICAL ATTENTION IF: There is more than a spotting of blood in your stool. There is abdominal distention (your abdomen is swollen). There is vomiting. You have a temperature over 101.5 F. There is abdominal pain or discomfort that is severe or gets worse throughout the day. Follow Up Care 09/03/2021 13:25:06 With:Marlys LOPEZ Address: [facility] [address] [place] [address] Business (1) When: Unknown Comments:Call for any problems.Office will call you if follow up is needed. [facility]06-09-2022 Evaluation note* Encounter Date Diagnosis Assessment Notes Treatment Notes Treatment Clinical Notes Aug, Tear of right supraspinatus tendon (ICD-10 - M75.101) Aug, Osteoarthritis of ri ght acromioclavicular joint (ICD-10 - M19.011) Aug, Other specified postprocedural states (ICD-10 - Z98.890) Patient is progressing well. Continue motion and strengthening exercises documentation liaison. Instructed on proper body mechanics to avoid repeat injury. Call with questions/concerns . [facility] Other 01-13-2022 Evaluation note* Encounter Date Diagnosis Assessment Notes Treatment Notes Treatment Clinical Notes Mar, Tear of right supraspinatus tendon (ICD-10 - M75.101) Mar, Osteoarthritis of ri ght acromioclavicular joint (ICD-10 - M19.011) Mar, Acute pain of right shoulder (ICD-10 - M25.511) Mar, Other specified postprocedural states (ICD-10 - Z98.890) Patient instructed on discontinuing the sling. Begin gentle acitve assisted motion exercise including table and wall walks. This was demonstrated. Instructed on progression of motion exercise in flexion, internal rotation and external rotation. Instructed on use of heat to help with motion. Stressed importance of not over doing activity to avoid repair failure. [facility] Other 11-04-2021 Evaluation note* Encounter Date Diagnosis Assessment Notes Treatment Notes Treatment Clinical Notes Jan, Tear of right supraspinatus tendon (ICD-10 - M75.101) This is a complex rotator cuff tear with retraction and tissue loss that will be difficult to repair, however, I think it is reasonalbe to proceed with surgery that may be helpful. The potential for a less than optimal outcome is high. Patient understands this and would like to proceed. Jan, Osteoarthritis of ri ght acromioclavicular joint (ICD-10 - M19.011) Jan, Acute pain of right shoulder (ICD-10 - M25.511) Jan, Pre-op examination (ICD-10 - Z01.818) [facility] Other Evaluation + Plan note Future Appointments Appointment Date:09/23/2021 12:20:00 PM Scheduled Provider: Location:[facility] Appointment Type:Surgery FT [facility] Evaluation [facility]No [facility] Other Evaluation noteNo assessment information available [facility] Work Phone: Evaluation note* Diagnosis Onset Date Resolution Status Primary hypertension acute Primary osteoarthritis, right shoulder acute Right shoulder pain acute Primary osteoarthritis, right shoulder acute Right shoulder tendonitis ac arnold Tear of right supraspinatus tendon acute 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 acute Hypercholesterolemia acute Lung nodule, multiple acute Mucopurulent chronic bronchitis acute Nicotine addiction acute Primary hypertension acute Tubular adenoma of colon acu te Screening PSA (prostate specific antigen) noneactive Wellness examination noneact jasvir [facility] Work Phone: Evaluation note* Diagnosis Onset Date Resolution Status Mucopurulent chronic bronchitis acute Nicotine addiction acute Primary hypertension acute Primary osteoarthritis, right shoulder acute Right shoulder pain acute [facility] Work Phone: Evaluation note* Diagnosis Onset Date Resolution Status Mucopurulent chronic bronchitis acute Nicotine addiction acute Primary hypertension acute Primary osteoarthritis, right shoulder acute Right shoulder pain acute Chronic vasomotor rhinitis a cute Hypertrophy, nasal, turbinate acute Nicotine addiction acute [facility] Work Phone: Evaluation note* Diagnosis Chronic vasomotor rhinitis- Primary [facility] Diagnosis DJD (degenerative joint disease), ankle and foot, right- Primary Hallux rigidus of right foot Acquired deformity of right toe Capsulitis of metatarsophalangeal (MTP) joint of right foot Pain due to onychomycosis of toenails of both feet documented in this encounter [facility]* Diagnosis Hallux rigidus of right foot- Primary Capsulitis of metatarsophalangeal (MTP) joint of right foot DJD (degenerative joint disease), ankle and foot, right documented in this encounter [facility] HealthcareEvaluation note* Diagnosis Capsulitis of metatarsophalangeal (MTP) joint of right foot- Primary Hallux rigidus of right foot DJD (degenerative joint disease), ankle and foot, right Pain due to onychomycosis of toenails of both feet [facility] - [facility]* Type Description Date Medical History high blood pressure Medical History Arthritis Surgical History osteomyelitis right femur bone tumor [facility] Other History general Narrative - ReportedNortRemCare Other History general Narrative - Reported* Type Description Date Medical History high blood pressure Medical History Arthritis Surgical History osteomyelitis right femur bone tumor Surgical History Right shoulder arthr oscopy with supraspinatus rotator cuff repair[using one 5.5 tape loaded swivel lock medial row, one 5.5 swivel lock lateral row/Subacromial decompression/Extensive debridement inferior labral tear DOS 02/27/2102/2021 [facility] Other [facility] general Narrative - Reported* Type Description Date Medical History hypertension Medical History Arthritis Medical History panic attack due to PTSD Medical History memory change Medical History SIADH Medical History hyperlipidemia Medical History adenomatous polyp of descending colon Medical History tubular adenoma of colon Medical History anemia Medical History benign prostatic hyperplasia wit h nocturia Medical History partial tear of right subscapula ris tendon Medical History tear of right supraspinatus tend on Medical History lung nodule, multiple Medical History hyponatremia Medical History fatigue Medical History Basilio's esophagus without dysp lasia Surgical History osteomyelitis right femur bone tumor Surgical History Right shoulder arthr oscopy with supraspinatus rotator cuff repair[using one 5.5 tape loaded swivel lock medial row, one 5.5 swivel lock lateral row/Subacromial decompression/Extensive debridement inferior labral tear DOS 02/27/2102/2021 Hospitalization History see above [facility] Other Hospital course Narrative No data available for this section [facility] Discharge instructions No data available for this section [facility] Discharge instructionsAmbulatory Orders* Referral to ENT Time Frame: 01/24/24, Location: None Selected [facility] Work Phone: Progress note No data available for this section [facility]arrative)No reason for referral information [facility] Work Phone: Summary Purpose Family History Relationship Condition Age at Onset Recorded Date/T de father Status post three ve ssel coronary artery bypass Unknown Not Specified Malignant neoplasm Unknown Relationship Condition Age at Onset Recorded Date/T de Not Specified Malignant neoplasm Unknown Unknown father Unknown Relationship Condition Age at Onset Recorded Date/T de mother Malignant neoplasm Unknown Unknown father Unknown Advance Directives Advance Directive Response Recorded Date/ Time Advance Directives No November 12, 2020 8:28am Advance Directive Response Recorded Date/ Time Advance Directives No November 12, 2020 7:28am Chief Complaint and Reason for Visit Chief Complaint 3 Month Follow Up Shot in Shoulder Chief Complaint Shot in Shoulder op sp rt shoulder pain requested injection 4 month follow up Reason for Visit Primary hypertension Primary osteoarthritis, right shoulder Right shoulder pain Primary osteoarthritis, right shoulder Right shoulder tendonitis Tear of right supraspinatus tendon 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 Hypercholesterolemia Lung nodule, multiple Mucopurulent chronic bronchitis Nicotine addiction Primary hypertension Tubular adenoma of colon Screening PSA (prostate specific antigen) Wellness examination Chief Complaint cordisone shot in oulder Reason for Visit Mucopurulent chronic bronchitis Nicotine addiction Primary hypertension Primary osteoarthritis, right shoulder Right shoulder pain Chief Complaint cordisone shot in oulder medical concerns Reason for Visit Mucopurulent chronic bronchitis Nicotine addiction Primary hypertension Primary osteoarthritis, right shoulder Right shoulder pain Chief Complaint cordisone shot in oulder medical concerns Reason for Visit Mucopurulent chronic bronchitis Nicotine addiction Primary hypertension Primary osteoarthritis, right shoulder Right shoulder pain Chronic vasomotor rhinitis Hypertrophy, nasal, turbinate Nicotine addiction Chief Complaint Admit Date 4 month f/u March 07, 2024 8:46am cough May 15, 2024 8:28am Reason for Visit Admit Date Mucopurulent chronic bronchitis March 07, 2024 8:46am Nicotine addiction March 07, 2024 8:46am Primary hypertension March 07, 2024 8:46am Right shoulder pain March 07, 2024 8:46am Rotator cuff tendonitis March 07, 2 024 8:46am Chief Complaint Admit Date cough May 15, 2024 8:28am 3 month f/u/shoulder injection May 8:13am Reason for Visit Admit Date Primary hypertension May 15, 2024 8:28am Acute bronchitis due to other specified organisms May 15, 2024 8:28am Nicotine addiction June 12, 2024 8:1 3am Primary hypertension June 12, 2024 8: 13am Right shoulder pain June 12, 2024 8:1 3am Rotator cuff tendonitis June 12, 2024 8:13am Chief Complaint Admit Date cough May 15, 2024 8:28am 3 month f/u/shoulder injection May 8:13am [facility] July 03, 2024 8:00 am Chief Complaint Admit Date 3 month f/u/shoulder injection May 8:13am [facility] July 03, 2024 8:00 am OP SP RT SHOULDER PAIN September 04, 2024 9 :38am M77.8 - Other enthesopathies, not elsewh ere classi September 04, 2024 9:44am Reason for Visit Admit Date Nicotine addiction June 12, 2024 8:1 3am Primary hypertension June 12, 2024 8: 13am Right shoulder pain June 12, 2024 8:1 3am Rotator cuff tendonitis June 12, 2024 8:13am Primary osteoarthritis, right shoulder J 2024 9:38am Right shoulder tendonitis September 04 9:38am Tear of right supraspinatus tendon September 04, 2024 9:38am Chief Complaint Admit Date OP SP RT SHOULDER PAIN September 04, 2024 9 :38am M77.8 - Other enthesopathies, not elsewh ere classi September 04, 2024 9:44am wellness October 25, 2024 8:36 am Reason for Visit Admit Date Primary osteoarthritis, right shoulder J 2024 9:38am Right shoulder tendonitis September 04 9:38am Tear of right supraspinatus tendon September 04, 2024 9:38am 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 Ju ly 2024 8:36am Hypercholesterolemia October 25, 2024 8:3 6am Lung nodule, multiple October 25, 2024 8: 36am Mucopurulent chronic bronchitis September 8:36am Nicotine addiction October 25, 2024 8:36 am Primary hypertension October 25, 2024 8:3 6am Screening PSA (prostate specific antigen ) October 25, 2024 8:36am Tubular adenoma of colon October 25, 2024 8:36am Wellness examination October 25, 2024 8:3 6am Additional Source Comments REASON FOR VISIT (unrecogniz ed section and content) Reason Comments Vasomotor Rhinitis Reason Comments Toe Pain RT GT TOE Reason Comments Follow-up Inj check Reason Comments Toenail Care Non dm nail care Care Team (unrecognized sect ion and content) Team Status: Active Member Role Status Dates Shay Pineda DO Primary Care Provider Active Team Status: Inactive Member Role Status Gaby Pineda DO Primary Care Provide r, Attending Provider Active Start: November 07, 2023 End: November 07, 2023 Team Status: Inactive Member Role Status Gaby Pineda DO Primary Care Provide r, Attending Provider Active Start: January 24, 2024 End: January 24, 2024 Team Status: Active Member Role Status Gaby Pineda DO Primary Care Provide r, Attending Provider Active Start: October 10, 2023 Team Status: Inactive Member Role Status Gaby Pineda DO Primary Care Provider Active Hawa Starkey MD Attending Provider Active Team Status: Inactive Member Role Status Gaby Pineda DO Attending Provider Active Sta rt: April 07, 2023 End: April 07, 2023 Team Status: Inactive Member Role Status Gaby Pineda DO Primary Care Provide r, Attending Provider Active Start: May 18, 2023 End: May 18, 2023 Team Status: Inactive Member Role Status Gaby Pineda DO Primary Care Provider Active Start: June 02, 2023 End: June 02, 2023 Hawa Starkey MD Active Start: May End: June 02, 2023 Renee Lawrence , [employer] Attending Provider Active Start: June 02, 2023 End: June 02, 2023 Team Status: Active Member Role Status Dates Shay Pineda DO Primary Care Provide r, Attending Provider Active Start: June 29, 2023 Team Status: Inactive Member Role Status Dates Shay Pineda DO Primary Care Provide r, Attending Provider Active Start: August 05, 2023 End: August 05, 2023 Team Status: Inactive Member Role Status Dates Shay Pineda DO Primary Care Provide r, Attending Provider Active Start: March 07, 2024 End: March 07, 2024 Team Status: Inactive Member Role Status Dates Shay Pineda DO Primary Care Provide r, Attending Provider Active Start: May 15, 2024 End: May 15, 2024 Team Status: Inactive Member Role Status Dates Shay Pineda DO Primary Care Provide r, Attending Provider Active Start: June 12, 2024 End: June 12, 2024 Plate St[employer] Relationship Specialty Start Date End Date Shay Pineda MD [address] [place] [id number] PCP - General Internal Medicine 02/01/24 Team Status: Inactive Member Role Status Dates Shay Pineda DO Primary Care Provider Active Start: July 03, 2024 End: July 03, 2024 Phil Pierre - [place] , DO [facility] Attending Provider Active Start: July 03, 2024 End: July 03, 2024 Plate Stacker Hand Relationship Specialty Start Date End Date Shay Pineda MD PCP - General Internal Medicine 02/01/24 [employer] Relationship Specialty Start Date End Date Shay Pineda MD PCP - General Internal Medicine 02/01/24 Team Status: Inactive Member Role Status Dates Shay Pineda DO Primary Care Provider Active Start: September 04, 2024 End: September 04, 2024 Hawa Starkey MD Attending Provider Active Star t: September 04, 2024 End: September 04, 2024 Team Status: Active Member Role Status Dates Hawa Starkey MD Attending Provider Active Star t: September 04, 2024 Shay Pineda DO Primary Care Provider Active Start: September 04, 2024 Team Status: Inactive Member Role Status Dates Hawa Starkey MD Attending Provider Active Star t: September 04, 2024 End: September 04, 2024 Shay Pineda DO Primary Care Provider Active Start: September 04, 2024 End: September 04, 2024 Plate Stacker Hand Relationship Specialty Start Date End Date Shay Pineda DO [address] [place] [address] PCP - General Internal Medicine 02/01/24 Plate [employer]acker Hand Relationship Specialty Start Date End Date Shay Pineda DO [address] [place] [id number] PCP - General Internal Medicine 02/01/24 Team Status: Inactive Member Role Status Dates Shay Pineda DO Primary Care Provider Active Start: October 25, 2024 End: October 25, 2024 Shay Pineda DO Attending Provider Active Sta rt: October 25, 2024 End: October 25, 2024 (unrecognized sect ion and content) No Status Records FoundNo Status Records FoundNo Status Records FoundNo Status Records Found INFORMATION SOURCE (unrecogn ized section and content) DATE CREATED AUTHOR 11/21/2021 [facility] DATE CREATED AUTHOR AUTHOR'S ORGANIZ ATION 07/30/2022 [facility] DATE CREATED AUTHOR AUTHOR'S ORGANIZ ATION 09/10/2024 [facility] DATE CREATED AUTHOR AUTHOR'S ORGANIZ ATION 10/08/2024 [facility] Goals (unrecognized section and content) Goals may be documented in a n alternate section FOR RECORDS PERTAINING TO PATIENTS WHO ARE OR HAVE BEEN ENROLLED IN A CHEMICAL DEPENDENCY/SUBSTANCEABUSE PROGRAM, SOME INFORMATION MAY BE OMITTED. This clinical summary was aggregated from multiple sources. Caution should be exercised in using it in the provision of clinical care. This summary normalizes information from multiple sources, and as a consequence, information in this document may materially change the coding, format and clinical context of patient data. In addition, data may be omitted in some cases. CLINICAL DECISIONS SHOULD BE BASED ON THE PRIMARY CLINICAL RECORDS. [facility] [employer] [facility]. provides no warranty or guarantee of the accuracy or completeness of information in this document.
[2024-10-29 07:06] LABS: Hematocrit 38.3 % (42.0-54.0); Hemoglobin 13.0 g/dL (14.0-18.0); Immature Granulocytes Abs Auto 0.01 10^3/uL (0.00-0.03); Immature Granulocytes Pct Auto 0.2 % (0.0-0.5); Lymphocytes Absolute Auto 1.6 10^3/uL (1.2-3.8); Mean Corpuscular HGB Conc 33.9 g/dL (29.9-35.2); Mean Corpuscular Hemoglobin 32.2 pg (25.9-34.0); Mean Corpuscular Volume 94.8 fL (80.0-94.0); Platelet Count 306 10^3/uL (150-450); Red Blood Count 4.04 10^6/uL (4.70-6.10); White Blood Count 5.1 10^3/uL (4.0-11.0)
[2024-10-29 09:15] LABS: Alanine Aminotransferase 53 U/L (16-63); Albumin Globulin Ratio 1.2; Albumin Level 4.1 g/dL (3.4-5.0); Alkaline Phosphatase 90 U/L (46-116); Anion Gap 11.2; Aspartate Amino Transferase 27 U/L (15-37); Blood Urea Nitrogen 17.0 mg/dL (7.0-18.0); Calcium 9.2 mg/dL (8.5-10.1); Carbon Dioxide 28.8 mmol/L (21.0-32.0); Chloride 98 mmol/L (98-107); Cholesterol 259 mg/dL (<=200); Estimated GFR (African America >60 (>=60 mL/min/1.73m^2); Estimated GFR (Non-African Ame >60 (>=60 mL/min/1.73m^2); Globulin 3.5 g/dL; Glucose 98 mg/dL (74-106); HDL Cholesterol 63 mg/dL (40-60); Potassium 4.0 mmol/L (3.5-5.1); Sodium 134 mmol/L (136-145); Total Protein 7.6 g/dL (6.4-8.2); Triglycerides 90 mg/dL (<=150); VLDL CHOLESTEROL 18.0 mg/dL
== END 2024-10-29 06:31 | disposition home or self-care (01) ==
LOC: LAB 06:31
PROVIDERS: PCP Internal Medicine; Visit Provider Internal Medicine
DX: Z00.00 Encounter for general adult medical examination without abnormal findings (principal); E78.00 Pure hypercholesterolemia, unspecified; I10 Essential (primary) hypertension; K22.70 Barrett's esophagus without dysplasia
CPT/HCPCS: 36415; 80053; 80061; 85025

== ENCOUNTER 2025-02-18 14:13 | Outpatient (OUT) | payer OTHER, MEDICARE, SELFPAY ==
--- OUTSIDE RECORDS SUMMARY | 2025-02-11 03:46 | XMS_ITS | Continuity of Care Document ---
Author Organization [facility] Address [address] [place] [address] Phone Care Team Providers Care [employer] Supervisor Name Role Phone Shay Pineda DO Primary Care Provider Jeff Grimaldo MD Attending Provider Shay Pineda DO Attending Provider [phone] Eloy Swan DO Attending Provider Care Teams Patient Care Team Team Status: Active Member Role/Relationship Status Dates Shay Pineda DO Primary Care Provider Active Visit Care Team Team Status: Inactive Member Role/Relationship Status Dates Shay Pineda DO Primary Care Provider Active Start: December 04, 2024 End: December 04omas Oleselene , JEANNETTEttending ProviderActiveStart: December 04, 2024 End: December 04, 2024 Visit Care Team Team Status: Inactive Member Role/Relationship Status Dates Shay Pineda DO Primary Care Provider Active Start: January 22, 2025 End: January 22omas OleLesley mortonending ProviderActiveStart: January 22, 2025 End: January 22, 2025 Visit Care Team Team Status: Inactive Member Role/Relationship Status Dates Shay Pineda DO Primary Care Provider Active Start: January 31, 2025 End: January 31ented Pineda DOAttsteph ProviderActiveStart: January 31, 2025 End: January 31, 2025 Visit Care Team Team Status: Inactive Member Role/Relationship Status Dates Shay Pineda DO Primary Care Provider Active Start: January 31, 2025 End: January 31raman Grimaldo MDAttsteph ProviderActiveStart: January 31, 2025 End: January 31, 2025 Patient Care Team Team Status: Inactive Member Role/Relationship Status Dates Shay Pineda DO Primary Care Provider Active Start: February 11, 2025 End: February 11, 2025Eloy Swan DOAttending ProviderActiveStart: February 11, 2025 End: February 11, 2025 Chief Complaint and Reason for Visit Chief Complaint Admit Date OP SP RT SHOULDER PAIN WANTS INJ Septemb er 2024 11:27am OP SP RT SHOULDER PAIN January 22 10:59am 3 month F/U January 31, 2025 9 :02am M19.011 January 31, 2025 4 :01pm CONSULT DR GRIMALDO February 11, 2025 7:47am Reason for Visit Admit Date Primary osteoarthritis, right shoulder S eptember 2024 11:27am Right shoulder tendonitis December 04, 2024 11:27am Tear of right supraspinatus tendon Septe mber 2024 11:27am Primary osteoarthritis, right shoulder O ctober 2024 10:59am Right shoulder tendonitis January 22, 2025 10:59am Tear of right supraspinatus tendon Octob er 2024 10:59am 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 No vember 2024 9:02am Hypercholesterolemia January 31, 2025 9:02am Lung nodule, multiple January 31, 2025 9:02am Mucopurulent chronic bronchitis January 31, 2025 9:02am Nicotine addiction January 31, 2025 9 :02am Primary hypertension January 31, 2025 9:02am Tubular adenoma of colon January 31, 2 025 9:02am Primary osteoarthritis, right shoulder N ovember 2024 7:47am Right shoulder tendonitis February 11, 2025 7:47am Tear of right supraspinatus tendon Novem cruz 2024 7:47am Allergies, Adverse Reactions, Alerts Allergen Type Severity Reaction Last Updated Verified Status atorvastatin Allergy Unknown UNK February 11, 2025 8:01am Yes Active Social History Smoking Status Status Start Date End Date Date of Observa tion Smokes tobacco daily (finding) March 05, 2021 8:32pm Observation Status Observation Response Date of Response Legal Sex [facility] (finding) [facility] 1945 Family History Relationship Condition Age at Onset Recorded Date/T de mother Malignant neoplasm Unknown DeceasedUnknownfatherDeceasedUnknown Problems Active Problems Problem Diagnosis/Recorded Date Onset Date Status C omments Nicotine addiction August 03, 2023 9:46pm Unknown Active Screening PSA (prostate specific antigen)July 12, 2024 6:28pmUnknownActive PSA: 0.81 - 07/2018, 0.98 - 06/2023, 1.12 - arrett's esophagus without dysplasiaFebruary 2023 10:30amUnknownActivePrimary osteoarthritis of left shoulderFebruary 2023 10:30amUnknownActivePrimary osteoarthritis, right shoulderFebruary 2023 3:15pmUnknownActiveHypertrophy, nasal, turbinate January 24, 2024 11:28amUnknownActiveMucopurulent chronic bronchitisFebruary 2023 10:30amUnknownActiveRotator cuff tendonitisDecember 2023 9:37am UnknownActiveAnemiaFebruary 2023 10:33amUnknownActiveArthritisAugust 2020 2:16pmUnknownActiveArthritisFebruary 2023 10:33amUnknownActiveTear of right supraspinatus tendonFebruary 2023 10:33amUnknownActive HypercholesterolemiaMay 2023 9:46pmUnknownActivePrimary hypertension May 18, 2023 10:30amUnknownActiveBenign prostatic hyperplasia with lower urinary tract symptomsFebruary 2023 10:30amUnknownActiveLung nodule, multipleFebruary 2023 10:30amUnknownActiveSerial LDCT completed:No suspicious nodules: 12/2021, 12/2022, ight shoulder painDecember 2020 11:13pmUnknownActiveTubular adenoma of colonFebruary 2023 10:30am UnknownActiveChronic vasomotor rhinitisOctober 2023 11:26amUnknownActive Right shoulder tendonitisMarch 2023 12:10pmUnknownActiveInactive/Resolved Problems Problem Diagnosis/Recorded Date Onset Date Status C omments S/P right rotator cuff repair March 05, 2021 11:13pm Unknown Resolved Probl em List clean-up per request of Phys. EHR Cmte Near syncope March 05, 2021 11:13pm Unknown Resolve d Problem List clean-up per request of Phys. EHR Cmte Medications Medication Status Dose Units Route Directions Qty Days Refills S tart Date Stop Date End Date Reason(s) Instructions Adherence Etodolac 500 mg tablet Discontinued 500 MG PO Twice daily 30 15 0 May 19, 2023 12:00am August 05, 2023 8:04amIpratropium [place] 21 mcg (0.03 %) spray,non-aerosol Tszsdidouklq0TUVYEUUYEHYSUCGSmdro times dailyNovember 2023 12:00amJune 2024 9:27amadminister into each nostrilLisinopril 40 mg tabletDiscontinued 05DYLSHglkq285Iegseaif 2023 12:37pmJuly 2024 8:27amHTNCefuroxime Axetil 500 mg zuopocUgnjyc651KKCDSpvsc jdulv2992Qobse 2024 12:00amComplies with drug therapyEzetimibe 10 mg igtvibYtprlgcshotu15EKTHYdhlv04468Wyprt 2024 11:00pmApril 2024 12:42pmEzetimibe 10 mg zqtwmiSdwermmdjbsx85ABKM Iwdvj42050Gxymt 2024 12:42pmJune 2024 9:27amMultivitamin (One A Day) KqdqsgUjkykbagfeod7RNCFHVfwlvDpewzl 2020 11:00pmFebruary 2023 10:57amAscorbic Acid (Vitamin C) (Vitamin C) 1,000 mg NirzhdGzbshjfcssbg2413EKBR DailyAugust 2020 11:00pmFebruary 2023 10:57amsupplementEchinacea 380 mg XrxcrroHqqezp580SUKARksnaDhbeiy 2020 11:00pmsupplementComplies with drug therapyMilk Thistle 175 mg HbiriwVqzczt239QVQEWyaboQwebem 2020 11:00pmsupplementComplies with drug therapyCyanocobalamin (Vitamin B-12) (Vitamin B-12) 1,000 mcg ChvnskXhpboednkybr2934QNOIJPxhqhBwegrq 2020 11:00pmFebruary 2023 10:57amsupplementMeloxicam 7.5 mg tabletDiscontinued 7.5MGPOTwice daily as needed for PainAugust 2020 11:00pmFebruary 2023 10:59amInstructed to stop 7 days before surgeryNiacin 500 mg Tablet Acitbqvkznkw846XXHBQsxuaTynanb 2020 11:00pmFebruary 2023 10:57am Lisinopril 40 mg TotuweWdiuirtvoexp45AKINGbbksYyuowg 2020 11:00pmFebruary 2023 10:59amHTNPyridoxine (Vitamin B6) (Vitamin B-6) 500 mg Tablet Srzcrnqkurey9379KBPABjjznCnjskq 2020 11:00pmFebruary 2023 10:57am supplementCholecalciferol (Vitamin D3) (Vitamin D3) 25 mcg (1,000 unit) Capsule Xtdevzvkbgmr34EAICSMjasrZbglvy 22nd, 2021 11:00pmFebruary 2023 10:57am supplementMethylsulfonylmethane (Msm) 1,000 mg UggersAcfkrbzmsvpk1256YOBFFutxm November 16, 2020 11:00pmAugust 2023 11:07amjoint healthCalcium Citrate- Vitamin D3 (Citracal Plus D) 250 mg-5 mcg (200 unit) BdtqoaLwlkxm7TFZIETbevx November 16, 2020 11:00pmsupplementComplies with drug therapyPotassium Gluconate 595 mg (99 mg) IgubfsLqfyvijomsol629QBDPUovjqJwznwl 2020 11:00pmFebruary 2023 10:59amsupplementTurmeric 400 mg YrebaktXilypwlifpxd699LQDDCbwqw November 16, 2020 11:00pmFebruary 2023 10:59amsupplementAspirin 81 mg RlavbvzKbbpricnodtt51CGXIDfwvcMwdlrm 2020 11:00pmAugust 2023 11:06am Instructed to stop 7 days prior to surgeryPrevagen 1 jldNyebkkxykakp2JMQAHSumpa November 16, 2020 11:00pmFebruary 2023 10:59amsupplementSodium Chloride 1 gram FnctxqXwelzcslrmxk5PJVZIy Directed as needed for CrampsAugust 2020 11:00pmFebruary 2023 10:57amLisinopril 40 mg dqmjueRxzocmieqpdh78TPGKApypu May 18, 2023 10:42amDecember 2023 12:37pmHTNMeloxicam 7.5 mg tablet Discontinued7.5MGPODaily as needed for PainFebruary 2023 10:43amFebruary 2023 11:21amPotassium Gluconate 595 mg (99 mg) snfuaaTfhypp173KQJPSprrs May 18, 2023 10:44amsupplementComplies with drug therapyPrevagen 1 tab Lvlpah0VMCDSMbvhxQrxsavwr 2023 10:45amsupplementComplies with drug therapy Turmeric 400 mg gnhsygeRpgdys758EZGKIaghsWzpypuyh 2023 10:46amsupplement Complies with drug therapyIpratropium [place] 42 mcg (0.06 %) spray,non-aerosol DiscontinuedINTRANASALFebruary 2023 12:00amAugust 2023 11:06amUse 2 sprays in each nostril before meals nasally three times a dayNiacin 500 mg gcsbllUwvlqm533DRZZQlaiwXfrmxo 2023 11:00pmComplies with drug therapy Mecobalamin (Vitamin B12) 500 mcg tablet,chewableActiveMCGPOAugust 2023 11:00pmComplies with drug therapyAscorbic Acid (Vitamin C) 500 mg capsuleActive MGPOAugust 2023 11:00pmComplies with drug therapyPyridoxine (Vitamin B6) 100 mg oivdjaKtcmjl604CFHIVqvvb a WeekNovember 06, 2023 11:00pmComplies with drug therapyCholecalciferol (Vitamin D3) 125 mcg (5,000 unit) iwmthpsPbicaq560 MCGPODailyAugust 2023 11:00pmComplies with drug therapy Jdlqzddm-Jev-Pghph-Vit K-Lycop 400-20-370 mcg swmfxeCgzlhy3AEGOLKvhjiWkbrzn 2023 11:00pmComplies with drug usprrmeU6-Jyexr-J33L39-Twvraf-Wzjkinuorq (Neuriva Plus Brain Performance) 1.7 mg-400 mcg- 2.4 mcg capsuleActiveCAPPO November 06, 2023 11:00pmComplies with drug therapyGlucosamine Hcl 1,500 mg yowdhxGcegge2474OJEZYyhyzRtmeph 2023 11:00pmadminister with a mealComplies with drug therapyEzetimibe 10 mg sdugxwMisnkh99KKIQXgjvj16458Jhzy 2024 8:22amComplies with drug therapyAmlodipine-Benazepril 5-40 mg ovvhceqEjvbdu1VZR WUEggko07521Zhrt 2024 11:00pmComplies with drug therapyAzithromycin 250 mg hpxrawKwawzqrgazxg172OFIZ.UTZEGOC668Ncphpzjf 2024 12:00amFebruary 2024 9:23am2 tabs on first day followed by 1 tab on days 2-5 Immunizations Immunization Event Date Not Given Reason Dose Number [employer] Super[employer] Lot Number Reason(s) Given Vaccine Information Statement (VIS) Detail Administration Location COVID-19 mRNA-1273 (Moderna) May 27, 2020 COVID-19 mRNA-1273 (Moderna)June 24OVID-19 mRNA-1273 (Moderna)January 20OVID-19 mRNA-1273 (Moderna)July [id number] TIV High- Dose 65YR+January 13, 2024U8429BAFluzone TIV High-Dose 65YR+January 02, 2025 L0809VSSzwolkfjn, trivalentOctober [id number] vaccine, quadrivalent, adjuvantedSeptember [id number] vaccine, quadrivalent, adjuvantedOctober [id number] vaccine, quadrivalent, adjuvantedOctober [id number], unspecified formulationSeptember 2020influenza, unspecified formulationOctober 2021influenza, unspecified formulationOctober neumococcal Conjugate Vaccine, 13 valentOctober 2019Pneumococcal Polysacc. Vaccine, 23 valentJuly 2021 Quadrivalent InfluenzaOctober [id number] Vaccine Recombinant, AdjuvantedNov2019Zoster Vaccine Recombinant, AdjuvantedJanuary hingles (Zoster)February 01, 2020Shingles (Zoster)April 15, 2020 Medical Equipment Device Date Implanted Device Details Tendon/ligament bone anchor, bioabsorbable February 27, 2021 ANGELA: [id number] Issuing Agency: [employer] Device Id: [id number] Expiration Date: 2024-08-25 Lot Number: [id number]/ligament bone anchor, bioabsorbableDecember 2020 ANGELA: [id number] Issuing Agency: [employer] Device Id: [id number] Expiration Date: 2024-11-25 Lot Number: [id number] Procedures Procedure Date Performed Status CT shoulder RT wo con January 31, 2025 4:06pm completed Relevant Diagnostic Tests and/or Laboratory Data Diagnostic Imaging Reports Author Doc Ramires [facility] BeachwoodAuthoredNov2024 5:48pmReportDictated Date/TimeDictated ByStatusRadiology ReportNov2024 5:48pmDoc Ramires II [facility] [place] [address] CT Scan Report Signed Patient: Cristhian العلي MR#: [id number] : 1945 Acct:[id number] Age/Sex: 79 / M ADM Date: 5 Loc: CT Room: Type: [facility] Attending Dr: Jeff Grimaldo MD Copies to: Jeff Grimaldo MD~ Ordering Provider: Jeff Grimaldo MD Date of Service: 01/31/25 CT/CT shoulder RT wo con: Surgical Planning CT shoulder RT wo con 01/31/2025 4:26 PM SIGNS AND SYMPTOMS: Surgical Planning TECHNIQUE: Multidetector CT axial slices of the right shoulder without IV contrast. Multiplanar reformats were performed and viewed on a separate workstation and reviewed to further define anatomy and possible pathology. CT was performed with one or more of the following dose reduction techniques: Automated exposure control, adjustment of the mA and/or kV according to patient size, or use of iterative reconstruction technique. COMPARISON: 09/04/2024 FINDINGS: Mild hypertrophic changes are noted in the acromioclavicular joint. There is moderate narrowing of the glenohumeral joint. There is cranial migration of the humeral head in respect to the glenoid pseudoarticulation with the undersurface of the acromion. There are accompanying subcortical cysts. Subcortical cystic changes also noted along the greater tuberosity consistent with underlying rotator cuff pathology. There is no fracture or dislocation. Visualized right hemithorax is grossly intact. There is scarring in the right lung apex with areas of pleural-based calcification. There is a calcified granuloma in the right middle lobe measuring 3 mm in greatest dimension. There is a pleural- based calcified granuloma lateral to this is a 3 mm in greatest dimension. There is a partially calcified 6 mm pleural-based granuloma laterally in the right upper lobe. There is a 6 mm noncalcified nodule in the right upper lobe on series 3 image 99. There is a calcified granuloma superior to this measuring 5 mm in greatest dimension in the right upper lobe. Degenerative changes are partly visualized in the cervical spine and thoracic spine. Atherosclerotic changes are noted in the thoracic aorta and coronary arteries. CT/CT shoulder RT wo con IMPRESSION: Moderate degenerative changes are noted in the glenohumeral joint with mild degenerative changes of the acromioclavicular joint. There is cranial migration of the humeral head in respect to the glenoid pseudoarticulation with the undersurface of the acromion. There are accompanying subcortical cysts. Subcortical cystic changes also noted along the greater tuberosity consistent with underlying rotator cuff pathology. There is no fracture or dislocation. Calcified and noncalcified nodules are noted in the lung parenchyma with the largest noncalcified nodule measuring 6 mm in greatest dimension. Follow-up with dedicated CT of the chest is recommended. Impression dictated by: Doc Ramires M.D. 01/31/2025 5:52 PM Dictation Location: [place] [address] Transcribed By: [facility] 01/31/251751 Dictated By: Doc Ramires II, MD 01/31/25 1748 Signed By: <Electronically signed by Doc Ramires II, MD in [place]> 01/31/25 175 Vital Signs Vital Reading Result Reference Range Collection Date/Time Height 71 [in_i] January 31, 2025 9:52eiWiebti47.79 kgNovember 2024 9:19amHeart Rate80 /mgi63-413Cfifrsap 6th, 2025 9:19amRespiratory rate12 /fnr74-51Jdcjgrgp 6th, 2025 9:19amBP Ajtkjziy266 mm[Hg]100-140Nov2024 9:19amBP Sltkplyyk49 mm[Hg]60-100Nov2024 9:19amBMI (Body Mass Index)23.9 kg/a1Shhqfwax2024 9:90eoIzfsek63 [in_i]February 11, 2025 8:67wdSppatw89.56 kgNov2024 8:41amBMI (Body Mass Index)23.8 kg/q4PsanrtdsFebruary 11, 2025 8:41am Advance Directives Advance Directive Response Recorded Date/ Time Advance Directives No November 12, 2020 7:28am Insurance Providers Guarantor Cristhian العلي Address [address] [facility] [address]Fpdjrmd Info.Home Phone: Coverage Status Update:2025 Payer Group Member ID Coverage Type Subscriber Relationship to Subscriber Effective Date Expiration Date [employer] Access [address] [address] [facility] [address] Work Phone: Id: [id number] W Nixon Id: [id number] [address] [facility] [address] Home Phone: Email: [email or web address] W العلي Id: [id number] [address] [facility] [address] Home Phone: Email: [email or web address] E العلي Id: [id number] [address] [facility] [address] Home Phone: Email: [email or web address] E العلي Id: [id number] [address] [facility] [address] Home Phone: Email: [email or web address] Encounters Encounter Location(s) Arrival/Admit Date Discharge/Departure Date Discharge/Departure Disposition Provider(s) Departed Physician/ Provider Office Visit -[facility] December 04, 2024 11:27am December 04, 2024 11:59am Discharged to home care or self care (routine discharge) Jeff Grimaldo MD Departed Physician/ Provider Office Visit -[facility] January 22, 2025 10:59am January 22, 2025 11:49am Discharged to home care or self care (routine discharge) Jeff Grimaldo MD Departed Physician/ Provider Office Visit -[facility] January 31, 2025 9:02am January 31, 2025 9:54am Discharged to home care or self care (routine discharge) Shay Pineda DO Departed Clinical -CT Scan [facility] January 31, 2025 4:01pm January 31, 2025 4:02pm Discharged to home care or self care (routine discharge) Jeff Grimaldo MD Departed Physician/ Provider Office Visit -[facility] February 11, 2025 7:47am February 11, 2025 8:45am Discharged to home care or self care (routine discharge) Eloy Swan DO Recent Diagnosis Onset Date Admit Date Primary osteoarthritis, right shoulder Unknown December 04, 2024 11:27am Right shoulder tendonitis Unknown Septem cruz 2024 11:27am Tear of right supraspinatus tendon Unknown December 04, 2024 11:27am Primary osteoarthritis, right shoulder Unknown January 22, 2025 10:59am Right shoulder tendonitis Unknown Octobe r 2024 10:59am Tear of right supraspinatus tendon Unknown January 22, 2025 10:59am 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 Unknown January 31, 2025 9:02am Hypercholesterolemia Unknown January 9:02am Lung nodule, multiple Unknown January 312024 9:02am Mucopurulent chronic bronchitis Unknown January 31, 2025 9:02am Nicotine addiction Unknown January 31, 2025 9:02am Primary hypertension Unknown January 9:02am Tubular adenoma of colon Unknown Novembe r 2024 9:02am Primary osteoarthritis, right shoulder Unknown February 11, 2025 7:47am Right shoulder tendonitis Unknown Novemb er 2024 7:47am Tear of right supraspinatus tendon Unknown February 11, 2025 7:47am Assessments Diagnosis Onset Date Resolution Status Admit Date Primary osteoarthritis, right shoulder acuteSeptember 2024 11:27amRight shoulder tendonitisacuteSeptember 2024 11:27amTear of right supraspinatus tendonacuteSeptember 2024 11:27am Primary osteoarthritis, right shoulderacuteOctober 2024 10:59amRight shoulder tendonitisacuteOctober 2024 10:59amTear of right supraspinatus tendonacuteOctober 2024 10:59amBarrett's esophagus without dysplasiaacute January 31, 2025 9:02amHypercholesterolemiaacuteNovember 2024 9:02amLung nodule, multipleacuteNovember 2024 9:02amMucopurulent chronic bronchitis acuteNovember 2024 9:02amNicotine addictionacuteNovember 2024 9:02am Primary hypertensionacuteNovember 2024 9:02amTubular adenoma of colonacute January 31, 2025 9:02amPrimary osteoarthritis, right shoulderacuteNovember 2024 7:47amRight shoulder tendonitisacuteNovember 2024 7:47amTear of right supraspinatus tendonacuteNovember 2024 7:47am Plan of Treatment Author Paula Rodríguez [facility] BeachwoodAuthoredSeptember 2024 10:59amA 1/1cc Marcaine / Kenalog cortisone injection was performed into the subacromial space under sterile technique. Patient tolerated the injection well with no adverse reaction. Note scribed by Paula Rodríguez , RMRobyn, reviewed and amended by Jeff Grimaldo M.D. Author Shay Pineda [facility] BeachwoodAutkettering healthNovember 2024 10:00amI have instructed this patient to consume a healthy, low-fat, low-salt diet. I have also encouraged them to continue exercise with weight loss to achieve/maintain a BMI < 30. I have instructed this patient on the correct procedure for obtaining home BP measurements:? - rest for 5 minutes w/o talking. - positioned w/ feet on floor and arms supported. - average best 2/3 readings w/ goal < 135/85. - update office w/ home readings in 2 weeks. Changed Lisinopril to lotrel Instructed to record home BP readings over the next week and drop off results. This patient has been encouraged to quit tobacco use immediately. They are aware of the hazards associated with tobacco use, including but not limited to respiratory infections, vascular disease and cancers. Scheduled for yearly LDCT chest for lung cancer screening. - began 18 - 03/29- ppd - counseled on smoking cessation Serial LDCT completed: No suspicious nodules: 12/2021, 12/2022, 01/2024 Due for repeat LDCT, will send order to [facility] I have instructed this patient on a low fat, high fiber diet and exercise. I have discussed the primary and secondary prevention benefits attributed to lowering LDL cholesterol. I have also discussed the medical treatment of elevated cholesterol, which is based on the 10 year ASCVD risk. He is intolerant to Statin therapy, continue Zetia w/o interruption Instructed on smoking cessation Hydrate and mucolytics to assist in clearing secretions. No inhalers being used No ER/hosp visits for AECOPD Instructed on vaccines Instructed on smoking cessation. Serial LDCT completed: No suspicious nodules: 12/2021, 12/2022, 01/2024 Due for yearly LDCT, will send order He denies heartburn or dysphagia Continue daily use of PPI w/o interruption. Continue surveillance EGD Last EGD 08/2021 (repeat in 5 years) UTD w/ CRC screening This patient is an asymptomatic, high risk patient. They deny any change in appetite, weight or bowel habits. They deny abdominal pain, heartburn, dysphagia, melena or hematochezia. Last colonoscopy 08/2021 (repeat 5 years) Author Marah Dumont [facility] BeachwoodAuthoredNovember 2024 8:40amHe continues to have pain in his shoulder. We discussed this is likely due to a failed rotator cuff repair and the arthritis in his shoulder. We discussed various surgical treatment options. At this time, I recommend a reverse shoulder arthroplasty over a revision rotator cuff repair. He no longer wishes to live in his current condition therefore we will proceed with surgery in the form of a right reverse shoulder arthroplasty. We discussed the risks, benefits, and alternatives to surgery in general, including the potential outcomes with foregoing treatment altogether. The risks include, but are not limited to, the risk of anesthesia up to and including , infection, bleeding, tendon damage, nerve damage, vascular damage, stiffness, weakness, loss of range of motion, arthrofibrosis, failure to alleviate symptoms, worsening of symptoms, continued pain, continued mechanical symptoms, wound healing problems, formation of cutaneous scars secondary to surgical incisions, deep venous thrombosis, pulmonary embolism, reflex sympathetic dystrophy, unforeseen complications and the need for further surgery. Presurgical, surgical, and postsurgical timeline discussed with patient. We discussed in detail the rehabilitation associated with this procedure, in terms of frequency and duration. We discussed the use of the sling postoperatively, and the fact that driving a motor vehicle is not advisable while in the sling. The importance of proper rehabilitation in the overall outcome of the surgery was emphasized. The amount of time needed off from activities (work, school, sports, exercise, and leisure activity) was discussed. The patient understands that in no way does surgical intervention guarantee return to activities (athletic, work, leisure, etc.). Guarantees were neither stated nor implied. The patient understands and has appropriate expectations. All questions were answered. Patient understood and agreed with the plan. We will schedule the patient for a right reverse shoulder arthroplasty. A CT scan of the operative shoulder with Tornier protocol has been obtained for preoperative. Procedure: right reverse shoulder arthroplasty Antibiotics: Ancef DVT ppx: Ambulation Same Day Surgery: Yes Bed: Beachchair Instruments needed: Tornier reverse shoulder arthroplasty Author Ken Adam [facility], BeachwoodAuthoredOctober 2024 10:51amImages and pain etiology were discussed with the patient. 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 Treatment modalities were discussed including conservative treatment in the form of oral anti-inflammatories, injection, physical therapy. Surgical interventions were discussed in the form of arthroplasty. Due to patient not finding much relief from previous cortisone injection, we will have patinet get a CT scan of the shoulder and have him see Dr. Swan for surgical treatment. Note scribed by RAMILA Plummer, reviewed and amended by myself Jeff Grimaldo M.D. Future Tests Future scheduled test information is unavailable Pending Tests Pending diagnostic test information is unavailable Future Visits Future appointment information is unavailable Future Procedures Future procedure information is unavailable Future Medications Future medication information is unavailable Patient Instructions Patient instructions are unavailable
--- OUTSIDE RECORDS SUMMARY | 2025-02-18 14:17 | XMS_ITS | Clinical Summary ---
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 Role Phone Shay Pineda Primary Care Provider [phone] Allergies Active AllergyReactionsCriticalityNoted XndgHtmrxkwaXevavaokzzkb41/29/2024 Other Reaction(s): UNK Medications MedicationSigDispense QuantityRefillsLast FilledStart DateEnd DateStatus cholecalciferol (Vitamin D-3) 125 MCG (5000 UT) capsule Daily11/07/2023ctive etodolac (Lodine) 500 MG tablet TAKE 1 TABLET BY MOUTH TWICE A DAY FOR 15 DAYS05/19/2023ctive lisinopril 40 MG tablet Daily05/18/2023ctive Glucosamine HCl 1500 MG tablet Daily11/07/2023ctive pyridoxine (B-6) 100 MG tablet Twice a Week11/07/2023ctive Turmeric 400 MG capsule Daily05/18/2023ctive niacin (Niaspan) 500 MG ER tablet Daily11/07/2023ctive POTASSIUM GLUCONATE PO Daily05/18/2023ctive ascorbic acid (Vitamin C) 500 mg/mL oral liquid 11/07/2023ctive Multiple Vitamins-Minerals (ONE A DAY MEN 50 PLUS PO) 1 xmwrzi3511/07/2023ctive milk thistle 175 MG tablet Take 175 mg by mouth DailyActive Echinacea 650 MG capsule Take by mouthActive Cyanocobalamin (Vitamin B 12) 100 MCG lozenge Take by mouthActive ipratropium (Atrovent) 0.06 % nasal spray Indications:Chronic vasomotor rhinitisAdminister 2 sprays into each nostril in the morning and 2 sprays in the evening and 2 sprays before bedtime. 45 mL 311/06/2024Active Active Problems ProblemNoted DateDiagnosed MdxsAebjitpng79/06/2024Barrett's esophagus without icfhlghoi91/06/2024enign prostatic hyperplasia with lower urinary tract rlnbvyno95/06/2024Chronic vasomotor /06/0345Qkadhn06/13/2022 Family History RelationNameStatusCommentsFatherDeceasedMotherDeceased Social History Tobacco UseTypesPacks/DayYears UsedDateSmoking Tobacco: Every DayCigarettes Smokeless Tobacco: Never Tobacco Cessation:Ready to Q uit: Not Asked; Counseling Given: Yes Alcohol UseStandard Drinks/WeekCommentsYes1 (1 standard drink = 0.6 oz pure alcohol)Sex and Gender InformationValueDate RecordedSex Assigned at BirthNot on fileLegal TovUueb45/29/2024 1:51 PM EDTGender IdentityNot on fileSexual OrientationNot on file Last Filed Vital Signs Vital SignReadingTime TakenCommentsBlood Lgpteuzd178/80104/02/2023 10:47 AM EST Pulse--Temperature--Respiratory Vhdc596009/07/2024 2:12 PM EDTOxygen Saturation-- Inhaled Oxygen Concentration--Sbmmkr67.1 kg (170 lb)09/07/2024 2:12 PM EDTHeight 180.3 cm (5' 11 )09/07/2024 2:12 PM EDTBody Mass Index23.71009/07/2024 2:12 PM EDT Plan of Treatment Not on file Insurance Care Teams Team MemberRelationshipSpecialtyStart DateEnd Date Shay Pineda DO [address] [place] [address] PCP - GeneralInternal Dhjztrxe96/6/24
--- NOTE | 2025-02-18 14:21 | ECG_ITS ---
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 Measurements Intervals Helm Rate: 66 P: 82 [place]: 184 QRS: 78 QRSD: 84 T: 78 QT: 375 QTc: 393 Interpretive Statements SINUS RHYTHM Normal ECG Compared to ECG 03/02/2022 17:58:45 No significant changes Electronically Signed On 02-18-2025 19:50:57 EST by JU BARTON M.D.
--- OUTSIDE RECORDS SUMMARY | 2025-02-18 14:22 | XMS_ITS | CCD ---
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 Name Role Phone SHAY ROCA Primary Care Physician Hawa Starkey Unavailable Renee Lawrence Unavailable Shay Roca Unavailable DO Shay Roca Primary Care Provider MD Hawa Starkey Attending Provider [phone] CHANELLE, DR BALL Consulting Unavailable BALL, DR BALL Primary Care Unavailable CHANELLE, DR BALL Admitting Unavailable BALL, DR BALL Attending Unavailable BALL, DR BALL Consulting Unavailable CHANELLE, DR BALL Primary Care Unavailable BALL, DR BALL Admitting Unavailable BALL, DR BALL Attending Unavailable BALL, DR BALL Attending Unavailable BALL, DR BALL Consulting Unavailable BALL, DR BALL Primary Care Unavailable CHANELLE, DR BALL Admitting Unavailable GRECHNY ., PREMA BENJAMIN Consulting Unavailcipriano ROCA, DR BALL Primary Care Unavailable MARKER ., [...] UnavailShay Bailey MD Primary Care Provider Shay Roca DO Primary Care Provider [facility] [place] Attending Provider Shay Roca MD Primary Care Provider Hawa Starkey MD Attending Provider [place] Primary Care Provider JACOBO BROWN Attending Unavailable JACOBO BROWN Referring Unavailable JACOBO BROWN Attending Unavailable JACOBO BROWN Attending Unavailable ALEX GARCIA Attending Unavailable SHAY ROCA Referring Unavailable Shay Roca DO Primary Care Provider Hawa Starkey MD Attending Provider [place], Shay Attending Provider [phone] Shay Roca DO Primary Care Provider Hawa Starkey MD Attending Provider [place] Shay Primary Care Provider Hawa Starkey MD Attending Provider [phone] [place], Shay Attending Provider [phone] Shay Roca Primary Care Unavailable [facility], [place] Admitting Unavailable [facility] [place] Attending Unavailable Olexa, Hawa Admitting Unavailable Olexa, Hawa Attending Unavailable Shay Roca Primary Care Unavailable Shay Roca Primary Care Unavailable Olexa, Hawa Admitting Unavailable Olexa, Hawa Attending Unavailable Allergies Allergy ClassificationReported Allergen(s)Allergy TypeDate of OnsetReaction(s) Facility (4 sources)atorvastatinDrug Allergy[employer] Other (1 source)HMG-CoA reductase inhibitorDrug allergyPix[employer] Technology Other (9 sources)atorvastatinDrug Nhswusl86-18-4539[facility] (1 source)atorvastatinDrug Vvkiyrr77-67-3773OnfwbjhyvWilson [address] [facility] Medications Current Medications MedicationDrug Class(es)DatesSig (Normalized)Sig (Original)acetaminophen 325 mg / oxyCODONE hydrochloride 5 mg oral tablet (1 source)Opioid AgonistStart: 74-66-1315nqji 1 tablet by mouth every four hours Percocet 5-325 MG 1 tablet as needed Orally every 4 hrs for 7 days Feb, ActiveamLODIPine 5 mg / benazepril hydrochloride 40 mg oral capsule (5 sources)Dihydropyridine Calcium Channel Cesar, Angiotensin Converting Enzyme InhibitorStart: 97-16-5487opdt 1 capsule by mouth once dailyascorbic acid 500 mg oral capsule (20 sources)Vitamin CStart: 07-35-9724Kjmnc: 17-02-8923Wsjdwarw Acid (Vitamin C) Active MG PO November 07, 2023 12:00amStart: 01-10-5256Ihsokgf C Daily, Refills(s) 0, Prophylaxis Start Date: 09/03/21 Status: OrderedStart: 09-03-2021 Vitamin C Daily, Refills(s) 0 Start Date: 09/03/21 Status: OrderedStart: 11-17-2020 End: 58-70-7603bktq 1 tablet by mouth once dailyAscorbic Acid (Vitamin C) (Vitamin C) 1,000 mg Tablet Discontinued 1000 MG PO Daily November 16, 2020 11:00pm May 18, 2023 10:57am supplementascorbic acid (Vitamin C) 500 mg/mL oral liquid (9 sources)Start: 65-53-1367qleqmxwi acid (Vitamin C) 500 mg/mL oral liquid 11/07/2023 CyqfqpB3-Myobe-B26Z48-Jglwlz-Htkppjfiqx (Neuriva Plus Brain Performance) 1.7 mg-400 mcg- 2.4 mcg capsule (13 sources)Start: 58-29-1262Bkjdk: 64-76-4817U57976Y7-Vpszh-H65-Quqnbv-Dcprhwszig (Neuriva Plus Brain Performance) 1.7 mg-400 mcg- 2.4 mcg capsule Active CAP PO November 06, 2023 11:00pm Complies with drug therapyStart: 91-93-1304Rafmk: 77-23-8909R49290C8-Bvexl-R36-Uagpmh-Npoyfyzldz (Neuriva Plus Brain Performance) 1.7 mg-400 mcg- 2.4 mcg capsule Active CAP PO November 07, 2023 12:00am Complies with drug therapyStart: 49-98-0194B16482Y8-Dyasn-P01-Nbfltw-Vhflwxnskn (Neuriva Plus Brain Performance) 1.7 mg-400 mcg- 2.4 mcg capsule Active CAP PO November 06, 2023 11:00pmStart: 89-50-4243S56516Y2-Iqwdt-G35-Rmluvf-Sviieagqvb (Neuriva Plus Brain Performance) 1.7 mg-400 mcg- 2.4 mcg capsule Active CAP PO November 07, 2023 12:00amCalcium Citrate (9 sources)Citracal +D3 Activecalcium citrate 1190 mg / cholecalciferol 0.005 mg oral tablet (16 sources)Vitamin DStart: 30-98-9685pguu 1 tablet by mouth once daily cefuroxime 500 mg oral tablet (9 sources)Cephalosporin AntibacterialStart: 84-23-8915dgka 1 tablet by mouth twice dailycephalexin 500 mg oral capsule (1 source)Cephalosporin AntibacterialStart: 42-46-7890fhmw 1 capsule by mouth every eight hoursCephalexin 500 MG 1 capsule Orally TID for 2 days Feb, Activecholecalciferol 0.125 mg oral capsule (20 sources)Vitamin DStart: 12-21-2989mhio 1 capsule by mouth once dailyStart: 11-17-2020 End: 86-73-8157fmyj 1 capsule by mouth once dailyCholecalciferol (Vitamin D3) (Vitamin D3) 25 mcg (1,000 unit) Capsule Discontinued 25 MCG PO Daily November 16, 2020 11:00pm May 18, 2023 10:57am supplementPrevagen Extra Strength 20 MG as directed Orally Activetake 1 tablet by mouth every twenty-four hours Vitamin D3 25 MCG (1000 UT) 1 tablet Orally Once a day ActiveCitracal Maximum + D (2 sources)Start: 05-71-8881Ncjqynds Maximum + D Oral, BID, Refill(s) 0, Prophylaxis Start Date: 09/03/21 Status: OrderedStart: 21-16-2173Gihjhxdc Maximum + D Oral, BID, Refill(s) 0 Start Date: 09/03/21 Status: OrderedEchinacea (9 sources)Echinacea ActiveEchinacea 650 MG capsule (9 sources)Echinacea 650 MG capsule Take by mouth ActiveEchinacea Preparation (18 sources)Start: 17-76-5610wrletkcpu Refills(s) 0, Prophylaxis Start Date: 09/03/21 Status: OrderedStart: 33-26-7611nfyfmcpcl Refills(s) 0 Start Date: 09/03/21 Status: OrderedStart: 33-08-0861vpbj 1 capsule by mouth once dailyStart: 14-54-3864qumg 1 capsule by mouth once dailyEchinacea 380 mg Capsule Active 760 MG PO Daily November 16, 2020 11:00pm supplement Complies with drug therapy Start: 11-41-9110kcsx 1 capsule by mouth once dailyStart: 63-87-4286ykix 1 capsule by mouth once dailyEchinacea 380 mg Capsule Active 760 MG PO Daily November 17, 2020 12:00am Complies with drug therapyStart: 73-74-9740dgzu 1 capsule by mouth once dailyEchinacea 380 mg Capsule Active 760 MG PO Daily November 17, 2020 12:00amStart: 79-87-5968ezfo 1 capsule by mouth once daily Echinacea 380 mg Capsule Active 760 MG PO Daily November 16, 2020 11:00pmStart: 29-40-8902glue 760 mg by mouth once dailyEchinacea Active 760 MG PO Daily November 16, 2020 11:00pmStart: 21-36-3241ssot 760 mg by mouth once dailyEchinacea Active 760 MG PO Daily November 17, 2020 12:00amezetimibe 10 mg oral tablet (19 sources)Dietary Cholesterol Absorption InhibitorStart: 08-51-6026ilyb 1 tablet by mouth once dailyStart: 07-12-2024 End: 21-69-7640bsgz 1 tablet by mouth once dailyEzetimibe 10 mg tablet Discontinued 10 MG PO Daily 30 30 5 July 13, 2024 12:42pm September 04, 2024 9:27amglucosamine hydrochloride 1500 mg oral tablet (20 sources)Start: 87-89-6653lumw 1 tablet by mouth once dailyipratropium bromide 0.042 mg/actuat metered dose nasal spray (20 sources)AnticholinergicStart: 02-01-2024 End: 37-91-3831awuu 2 spray(s) nasal route in the morning, then take 2 spray(s) nasal route in the evening, then take 2 spray(s) nasal route at bedtime ipratropium (Atrovent) 0.06 % nasal spray Indications: Chronic vasomotor rhinitis Administer 2 sprays into each nostril in the morning and 2 sprays in the evening and 2 sprays before bedtime. 45 mL 01/31/2025 Active Start: 02-01-2024 End: 21-65-5040bfwo 1 spray(s) nasal route three times dailyIpratropium [place] 21 mcg (0.03 %) spray,non-aerosol Discontinued 2 SPRAY INTRANASAL Three times da german February 01, 2024 12:00am September 04, 2024 9:27am administer into each nostrilStart: 05-18-2023 End: 96-39-4564emfm 2 spray(s) nasal route three times daily before mealtime Ipratropium [place] 42 mcg (0.06 %) spray,non-aerosol Discontinued INTRANASAL May 18, 2023 12:00am November 07, 2023 11:06am Use 2 sprays in each nostril before meals nasally three times a dayStart: 53-01-6951fsdp 2 spray(s) nasal route before mealtimeIpratropium [place] 0.06 % 2 sprays in each nostril Nasally before meals for 30 days Dec, Activemecobalamin (8 sources)Start: 07-07-8434Gwicggrnrvc (Vitamin B12) 500 mcg tablet,chewable Active MCG PO November 07, 2023 12:00amStart: 16-60-2356Tdemklyvrun (Vitamin B12) 500 mcg tablet,chewable Active MCG PO November 06, 2023 11:00pmStart: 99-65-1350Ruugdgkynjr (Vitamin B12) Active MCG PO November 07, 2023 12:00amMilk thistle extract (20 sources)Start: 11-42-7064bvym thistle 175 mg, Refill(s) 0, Prophylaxis Start Date: 09/03/21 Status: OrderedStart: 96-13-3576xyir thistle Refill(s) 0 Start Date: 09/03/21 Status: OrderedStart: 00-16-3344krna 1 tablet by mouth once daily Start: 68-31-9501dbuf 1 tablet by mouth once dailyMilk Thistle 175 mg Tablet Active 175 MG PO Daily November 16, 2020 11:00pm supplement Complies with drug therapyStart: 54-80-7350mmpu 1 tablet by mouth once dailyStart: 62-61-4722buak 1 tablet by mouth once dailyMilk Thistle 175 mg Tablet Active 175 MG PO Daily November 17, 2020 12:00am Complies with drug therapyStart: 68-94-1121kvdd 1 tablet by mouth once dailyMilk Thistle 175 mg Tablet Active 175 MG PO Daily November 17, 2020 12:00amStart: 39-86-5575nnbn 1 tablet by mouth once dailyMilk Thistle 175 mg Tablet Active 175 MG PO Daily November 16, 2020 11:00pmStart: 95-19-5532lhfc 175 mg by mouth once dailyMilk Thistle Active 175 MG PO Daily November 16, 2020 11:00pmStart: 20-54-8928nrsq 175 mg by mouth once dailyMilk Thistle Active 175 MG PO Daily November 17, 2020 12:00amtake 1 tablet by mouth once dailymilk thistle 175 MG tablet Take 175 mg by mouth Daily ActiveMilk Thistle 175 MG as directed Orally ActiveMSM 1000 MG (9 sources)MSM 1000 MG as directed Orally ActiveMultiple Vitamins-Minerals (ONE A DAY MEN 50 PLUS PO) (9 sources)Start: 22-52-0455kzfv 1 tablet by mouth once dailyMultiple Vitamins- Minerals (ONE A DAY MEN 50 PLUS PO) 1 tablet 11/07/2023 Active Afmnokyf-Pjl-Ecpcy-Vit K-Lycop (3 sources)Start: 92-46-7821ygzr 1 tablet by mouth once daily Lemdoqfc-Mgh-Ngyta-Vit K-Lycop Active 1 TAB PO Daily November 07, 2023 12:00am Sxehrjvw-Wlv-Qvphz-Vit K-Lycop 400-20-370 mcg tablet (10 sources)Start: 40-81-8944fhom 1 tablet by mouth once dailyStart: 11-07-2023 take 1 tablet by mouth once uqmgmIotjihqp-Uzh-Nksbv-Vit K-Lycop 400-20-370 mcg tablet Active 1 TAB PO Daily November 06, 2023 11:00pm Complies with drug therapyStart: 59-34-7989zrkg 1 tablet by mouth once dailyStart: 36-58-7850kaib 1 tablet by mouth once ysmvhSotlauzm-Qxb-Zahvd-Vit K-Lycop 400-20-370 mcg tablet Active 1 TAB PO Daily November 07, 2023 12:00am Complies with drug therapyStart: 59-60-6329dzhz 1 tablet by mouth once wewchKqagsncg-Zpq-Jusix-Vit K-Lycop 400-20-370 mcg tablet Active 1 TAB PO Daily November 07, 2023 12:00amStart: 66-05-5989mqfr 1 tablet by mouth once eiilyYfqpswqt-Zgi-Hplvd-Vit K-Lycop 400-20-370 mcg tablet Active 1 TAB PO Daily November 06, 2023 11:00pmAleve (2 sources)Nonsteroidal Anti-inflammatory DrugStart: 85-40-8886xyvm 1 mg by mouth every twelve hoursAleve mg, Oral, q12hr, Refills(s) 0, Pain Start Date: 09/03/21 Status: OrderedStart: 11-77-8684vonc 1 mg by mouth every twelve hours Aleve mg, Oral, q12hr, Refills(s) 0 Start Date: 09/03/21 Status: Dbuhcsb83 hr niacin 500 mg extended release oral tablet (20 sources)Nicotinic AcidStart: 71-73-6575lvqhkg (Niaspan) 500 MG ER tablet Daily 11/07/2023 ActiveStart: 77-00-0098ukdq 1 tablet by mouth once dailyStart: 58-51-4712mpikir Oral, Refills(s) 0 Start Date: 09/03/21 Status: OrderedStart: 11-17-2020 End: 80-45-7858qnad 1 tablet by mouth once dailyNiacin 500 mg Tablet Discontinued 500 MG PO Daily November 16, 2020 11:00pm May 18, 2023 10:5 7amomeprazole 40 mg delayed release oral capsule (1 source)Proton Pump InhibitorStart: 62-00-5042llad 1 capsule by mouth once dailyomeprazole 40 mg Cap-DR 40 mg = 1 cap(s), Oral, Daily, # 30 cap(s), Refills(s) 2, Pharmacy: [facility], 180, cm, 09/23/21 11:48:00 EDT, Height/Length Dosing, 78.3, kg, 09/23/21 11:48:00 EDT, Weight Dosing Start Date: 09/23/21 Status: OrderedOne Daily 50 Plus - (9 sources)One Daily 50 Plus - as directed Orally ActivePlenvu oral powder for reconstitution (1 source)Start: 05-85-2987ndxj 1 dose by mouth oncePlenvu oral powder for reconstitution See Instructions, 1 EA, Refill(s) 0, Per physicians instruction's prior to colonoscopy Mail order pharmacy to sent to patient's home in [place]., [facility], 180, cm, 09/03/21 13:11:00 EDT, Height/Length Dosing, 78.3, kg, 09/03/21 13:11:0... Start Date: 09/03/21 Status: Orderedpotassium 99 mg extended release oral tablet (9 sources)take 1 tablet by mouth once dailyPotassium 99 MG 1 tablet Orally Once a day ActivePotassium Acetate (2 sources)Start: 06-66-0272lanqqgdff acetate Refills(s) 0, Prophylaxis Start Date: 09/03/21 Status: OrderedStart: 07-19-0905hmxuxahxq acetate Refills(s) 0 Start Date: 09/03/21 Status: OrderedPotassium gluconate (20 sources)Start: 02-21-9105MRXLLQXMT GLUCONATE PO Daily 05/18/2023 Active Start: 11-17-2020 End: 77-55-1932rhff 1 tablet by mouth once dailyPrevagen (11 sources)Start: 35-85-4945hhql 1 tablet by mouth once dailyPrevagen Active 1 TAB PO Daily May 18, 2023 11:45amStart: 74-08-9951fqrg 1 tablet by mouth once dailyPrevagen Active 1 TAB PO Daily May 18, 2023 10:45amStart: 11-17-2020 End: 23-98-8138digg 1 tablet by mouth once dailyPrevagen Discontinued 1 TAB PO Daily November 17, 2020 12:00am May 18, 2023 11:59amStart: 11-17-2020 End: 71-02-1207wexv 1 tablet by mouth once dailyPrevagen Discontinued 1 TAB PO Daily November 16, 2020 11:00pm May 18, 2023 10:59amStart: 41-26-7002owfw 1 tablet by mouth once dailyPrevagen Active 1 TAB PO Daily November 17, 2020 12:00amPrevagen 1 tab (20 sources)Start: 82-98-3442lidz 1 tablet by mouth once dailyStart: 05-18-2023 take 1 tablet by mouth once dailyPrevagen 1 tab Active 1 TAB PO Daily May 18, 2023 10:45am supplement Complies with drug therapyStart: 29-44-0413ubko 1 tablet by mouth once dailyStart: 57-97-4358kgnn 1 tablet by mouth once daily Prevagen 1 tab Active 1 TAB PO Daily May 18, 2023 11:45am Complies with drug therapyStart: 21-26-9836ipyh 1 tablet by mouth once dailyPrevagen 1 tab Active 1 TAB PO Daily May 18, 2023 11:45amStart: 20-76-1284hwdv 1 tablet by mouth once dailyPrevagen 1 tab Active 1 TAB PO Daily May 18, 2023 10:45amStart: 11-17-2020 End: 34-99-7482khgu 1 tablet by mouth once dailyPrevagen 1 tab Discontinued 1 TAB PO Daily November 16, 2020 11:00pm May 18, 2023 10:59am supplement Start: 11-17-2020 End: 47-98-1698qmoh 1 tablet by mouth once dailyPrevagen 1 tab Discontinued 1 TAB PO Daily November 17, 2020 12:00am May 18, 2023 11:59am supplement Start: 11-17-2020 End: 59-62-1677mzzw 1 tablet by mouth once dailyPrevagen 1 tab Discontinued 1 TAB PO Daily November 17, 2020 12:00am May 18, 2023 11:59amStart: 11-17-2020 End: 46-96-4201egeu 1 tablet by mouth once dailyPrevagen 1 tab Discontinued 1 TAB PO Daily November 16, 2020 11:00pm May 18, 2023 10:59amsodium chloride 1000 mg oral tablet (18 sources)Start: 57-15-9308oeodep chloride 1 g Tab Refills(s) 0, Prophylaxis Start Date: 09/01/21 Status: OrderedStart: 11-26-2020 End: 35-09-7256Myzrkv Chloride 1 gram Tablet Discontinued 1 GM PO As Directed as needed for Cramps November 25, 2020 11:00pm May 18, 2023 10:57amTumersaid (6 sources)Tumersaid ActiveTurmeric extract (20 sources)Start: 26-55-6229Charipvz 400 MG capsule Daily 05/18/2023 Active Start: 40-25-8184jkzb 1 capsule by mouth once dailyStart: 10-16-3035taqq 1 capsule by mouth once dailyTurmeric 400 mg capsule Active 550 MG PO Daily May 18, 2023 10:46am supplement Complies withdrug therapyStart: 21-49-3867kmjd 1 capsule by mouth once dailyStart: 55-89-5685gtxt 1 capsule by mouth once dailyTurmeric 400 mg capsule Active 550 MG PO Daily May 18, 2023 11:46am Complies with drug therapyStart: 13-07-4312dlqk 1 capsule by mouth once dailyTurmeric 400 mg capsule Active 550 MG PO Daily May 18, 2023 11:46amStart: 06-04-8697ogrg 1 capsule by mouth once dailyTurmeric 400 mg capsule Active 550 MG PO Daily May 18, 2023 10:46amStart: 66-32-1064eboq 550 mg by mouth once dailyTurmeric Active 550 MG PO Daily May 18, 2023 11:46amStart: 69-81-0960ulvf 550 mg by mouth once dailyTurmeric Active 550 MG PO Daily May 18, 2023 10:46amStart: 53-27-5056camv 550 mg by mouth once dailyTurmeric 550 mg, Oral, Daily, Refill(s) 0, Prophylaxis Start Date: 09/03/21 Status: OrderedStart: 36-85-3055bhba 1 mg by mouth once dailyTurmeric mg, Oral, Daily, Refill(s) 0 Start Date: 09/03/21 Status: OrderedStart: 11-17-2020 End: 98-17-8859nyfz 1 capsule by mouth once dailyTurmeric 400 mg Capsule Discontinued 550 MG PO Daily November 16, 2020 11:00pm May 18, 2023 1 0:59am supplementStart: 11-17-2020 End: 26-41-5561wiup 1 capsule by mouth once dailyTurmeric 400 mg Capsule Discontinued 550 MG PO Daily November 17, 2020 12:00am May 18, 2023 1 1:59am supplementStart: 11-17-2020 End: 04-03-8007arfs 1 capsule by mouth once dailyTurmeric 400 mg Capsule Discontinued 550 MG PO Daily November 17, 2020 12:00am May 18, 2023 1 1:59amStart: 11-17-2020 End: 38-27-6288jzdy 1 capsule by mouth once dailyTurmeric 400 mg Capsule Discontinued 550 MG PO Daily November 16, 2020 11:00pm May 18, 2023 1 0:59amStart: 11-17-2020 End: 67-86-3250nqso 550 mg by mouth once dailyTurmeric Discontinued 550 MG PO Daily November 17, 2020 12:00am May 18, 2023 11:59amStart: 11-17-2020 End: 39-88-4512kdab 550 mg by mouth once dailyTurmeric Discontinued 550 MG PO Daily November 16, 2020 11:00pm May 18, 2023 10:59amStart: 20-58-8727utxp 550 mg by mouth once dailyTurmeric Active 550 MG PO Daily November 17, 2020 12:00amvitamin b12 0.5 mg chewable tablet (20 sources)Vitamin Q76Teyab: 91-73-2411Izcmq: 11-09-2385Sbxluie B12 Refills(s) 0, Prophylaxis Start Date: 09/03/21 Status: OrderedStart: 12-41-2851Tmjarso B12 Refills(s) 0 Start Date: 09/03/21 Status: OrderedStart: 11-17-2020 End: 57-13-8452qjzn 1 tablet by mouth once dailyCyanocobalamin (Vitamin B-12) (Vitamin B-12) 1,000 mcg Tablet Discontinued 1000 MCG PO Daily 2020 11:00pm May 18, 2023 10:57am supplementCyanocobalamin (Vitamin B 12) 100 MCG lozenge Take by mouth ActiveVitamin B 12 Activevitamin b6 100 mg oral tablet (20 sources)Start: 81-93-4658axor 1 tablet by mouth two times weeklyStart: 92-49-4089Yatjytx B6 Daily, Refills(s) 0, Prophylaxis Start Date: 09/03/21 Status: OrderedStart: 98-23-5989Fevbhzl B6 Daily, Refills(s) 0 Start Date: 09/03/21 Status: OrderedStart: 11-17-2020 End: 13-28-1953Vlnxslyatu (Vitamin B6) (Vitamin B-6) 500 mg Tablet Discontinued 1000 MG PO Daily November 16821674:00pm February 21st, 2024 10:57am supplement Vitamin B6 ActiveVitamin C 1000 MG (7 sources)take 1 tablet by mouth once dailyVitamin C 1000 MG 1 tablet Orally Once a day ActiveVitamin D3 1000 intl units oral tablet (2 sources)Start: 66-57-2239tpjg 1 tablet by mouth once dailyVitamin D3 1000 intl units oral tablet 25 mcg = 1 tab(s), Oral, Daily, # 30 tab(s), Refills(s) 0, Prophylaxis Start Date: 09/03/21 Status: OrderedStart: 90-93-8008xtfb 1 tablet by mouth once dailyVitamin D3 1000 intl units oral tablet 25 mcg = 1 tab(s), Oral, Daily, # 30 tab(s), Refills(s) 0 Start Date: 09/03/21 Status: OrderedVitamin D3 25 MCG (1000 UT) (5 sources)take 1 tablet by mouth once dailytake 1 tablet by mouth once daily Vitamin D3 25 MCG (1000 UT) 1 tablet Orally Once a day Active Completed/Discontinued Medications MedicationDrug Class(es)DatesSig (Normalized)Sig (Original)aspirin 81 mg oral tablet (20 sources)Platelet Aggregation Inhibitor, Nonsteroidal Anti-inflammatory Drug Start: 11-17-2020 End: 05-80-2421Xvrpsfq 81 mg Capsule Discontinued 81 MG PO Daily November 16, 2020 11:00pm November 07, 2023 11:06am Instructed to stop 7 days prior to surgerytake 1 tablet by mouth once dailyAspirin 81 81 MG 1 tablet Orally Once a day Activeazithromycin 250 mg oral tablet (10 sources)Macrolide AntimicrobialStart: 05-15-2024 End: 95-25-7182Mcrqhnoxkeoi 250 mg tablet Discontinued 250 MG PO .COMPLEX 6 5 0 May 15, 2024 12:00am May 15, 2024 9:23am 2 tabs on first day followed by 1 tab on days 2-5etodolac 500 mg oral tablet (20 sources)Nonsteroidal Anti-inflammatory DrugStart: 05-19-2023 End: 54-22-4605zung 1 tablet by mouth twice dailyEtodolac 500 mg tablet Discontinued 500 MG PO Twice daily 30 15 0 May 19, 2023 12:00am August 05, 2023 8:04amLidocaine (1 source)Antiarrhythmic, Amide Local AnestheticStart: 47-32-7471Wyvrgnroi Aug, 20 mglisinopril 40 mg oral tablet (20 sources)Angiotensin Converting Enzyme InhibitorStart: 11-17-2020 End: 52-78-3940jxya 1 tablet by mouth once dailyLisinopril 40 mg tablet Discontinued 40 MG PO Daily May 18, 2023 10:42am March 02, 2024 1 2:37pm HTNmeloxicam 7.5 mg oral tablet (20 sources)Nonsteroidal Anti-inflammatory DrugStart: 05-18-2023 End: 67-70-0342tpsp 1 tablet by mouth once daily as needed for painMeloxicam 7.5 mg tablet Discontinued 7.5 MG PO Daily as needed for Pain May 18, 2023 10:43amFebruary 2023 11:21amStart: 11-17-2020 End: 14-04-2970gghm 1 tablet by mouth twice daily for painMeloxicam 7.5 mg tablet Discontinued 7.5 MG PO Twice daily as needed for Pain November 16, 2020 11:00pm May 18, 2023 10:59am Instructed to stop 7 days before surgerytake 1 tablet by mouth every twenty-four hoursMeloxicam 7.5 MG 1 tablet Orally Once a day Activemethylsulfonylmethane 1000 mg oral tablet (16 sources)Start: 11-17-2020 End: 06-59-5230uthp 1 tablet by mouth once dailyMethylsulfonylmethane (Msm) 1,000 mg Tablet Discontinued 1000 MG PO Daily November 16, 2020 11:00pmAugust 2023 11:07am [facility] healthMultivitamin (One A Day) Tablet (16 sources)Start: 11-17-2020 End: 32-57-1662cvoo 1 tablet by mouth once dailyMultivitamin (One A Day) Tablet Discontinued 1 TAB PO Daily November 17, 2020 12:00am May 18, 2023 11:57amStart: 11-17-2020 End: 24-44-9900uvnw 1 tablet by mouth once dailyMultivitamin (One A Day) Tablet Discontinued 1 TAB PO Daily November 16, 2020 11:00pm May 18, 2023 10:57amStart: 72-85-3784mlvl 1 tablet by mouth once dailyMultivitamin (One A Day) Tablet Active 1 TAB PO Daily November 17, 2020 12:00amtriamcinolone acetonide 40 mg/ml injectable suspension (7 sources)CorticosteroidStart: 07-51-7594Zmlmiqb-40 Aug, 40 mg Problems Active Problems Problem ClassificationProblemDateDocumented DateEpisodic/ChronicAcquired foot deformities (5 sources)Toe joint rigid; 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, right foot]06-27-2024 ChronicAcquired foot deformities (2 sources)Acquired deformity of toe of right foot; Translations: [Acquired deformities of toe(s), unspecified, right foot]96-76-2448BazovgcfEtfsu bronchitis (2 sources)Acute bronchitis due to other specified organisms; Translations: [Acute bronchitis]35-06-1738RgsbphegMvjqzeu disorders (8 sources)Panic attack; Translations: [Panic disorder [episodic paroxysmal anxiety]]Onset: 16-25-0161PxuwecoOzzuecj obstructive pulmonary disease and bronchiectasis (20 sources)Mucopurulent chronic bronchitis; Translations: [Mucopurulent chronic bronchitis]ChronicDeficiency and other anemia (20 sources)Anemia; Translations: [Anemia, unspecified]Onset: 86-46-3868Fsiexlvc Disorders of lipid metabolism (20 sources)Familial hypercholesterolemia; Translations: [Familial hypercholesterolemia]Onset: [id number] disorders (20 sources)Basilio's esophagus; Translations: [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]Onset: 95-89-9859WdybpzsJrvzgshac hypertension (20 sources)Essential hypertension; Translations: [Essential (primary) hypertension]Onset: [id number] symptoms and ill- defined conditions (4 sources)Nocturia; Translations: [Nocturia]EpisodicHeadache; including migraine (4 sources)Headache; including migraine; Translations: [HEADACHE UNSPECIFIED] Onset: 82-82-0501Jhasmfhlxty of prostate (20 sources)Nocturia due to benign prostatic hypertrophy; Translations: [Benign prostatic hyperplasia with lower urinary tract symptoms]Onset: 02-01-2024 09-58-3429EscztpiUjerhzq (3 sources)Pain in toe; Translations: [Tinea unguium]95-54-0669Fqriwabk Osteoarthritis (20 sources)Osteoarthritis of acromioclavicular joint; Translations: [Primary osteoarthritis, unspecified shoulder]Onset: 01-29-2021 Resolved: 42-92-0807FnytnhrWnxjd aftercare (1 source)Other penitentiary (current) drug therapyEpisodicOther and unspecified benign neoplasm (3 sources)Adenomatous polyp of colon ; Translations: [Benign neoplasm of descending colon]EpisodicOther and unspecified benign neoplasm (20 sources)Tubular adenoma of colon; Translations: [Benign neoplasm of colon, unspecified]13-24-3540WmzxdgpiKizoe and unspecified benign neoplasm (4 sources)Benign neoplasm of colon, unspecified; Translations: [Benign neoplasm of colon]EpisodicOther connective tissue disease (20 sources)Supraspinatus tear; Translations: [Unspecified rotator cuff tear or rupture of right shoulder, not specified as traumatic]68-25-7096FpivjwfwBsbcr connective tissue disease (7 sources)Unspecified rotator cuff tear or rupture of right shoulder, not specified as traumatic; Translations: [Supraspinatus (muscle) (tendon) sprain] Onset: 01-29-2021 Resolved: 19-89-7593YulukotjXydjp connective tissue disease (3 sources)Ganglion cyst; Translations: [Ganglion, unspecified site]Episodic Other connective tissue disease (20 sources)Tendonitis of right shoulder; Translations: [Other enthesopathies, not elsewhere classified]40-40-5928NdajglviMbfeb connective tissue disease (10 sources)Inflammation of rotator cuff tendon; Translations: [Other shoulder lesions, unspecified shoulder]34-95-4676EwhkvfhcGthyf connective tissue disease (5 sources)Other shoulder lesions, unspecified shoulder; Translations: [Disorders of bursae and tendons in shoulder region, unspecified]03-07-2024 EpisodicOther connective tissue disease (5 sources)Capsulitis of metatarsophalangeal joint of right foot; Translations: [Other enthesopathy of right foot and ankle]03-20-0827WdnnznjeXvynm endocrine disorders (4 sources)Syndrome of inappropriate vasopressin secretion; Translations: [Syndrome of inappropriate secretionof antidiuretic hormone]ChronicOther endocrine disorders (1 source)Syndrome of inappropriate secretion of antidiuretic hormoneChronic Other lower respiratory disease (20 sources)Multiple nodules of lung; Translations: [Other nonspecific abnormal finding of lung field]37-28-6358LroqwflyJouatqu on above:Serial LDCT completed:No suspicious nodules: 12/2021, 12/2022, 01/2024Other lower respiratory disease (4 sources)Other nonspecific abnormal finding of lung field; Translations: [Other nonspecific abnormal findingof lung field]EpisodicOther nervous system disorders (3 sources)Chronic pain; Translations: [Other chronic pain]ChronicOther non- traumatic joint disorders (20 sources)Pain in right shoulder; Translations: [Right shoulder pain]Onset: 01-29-2021 Resolved: 97-18-6707YnveytmiKaxzp non-traumatic joint disorders (1 source)Shoulder pain; Translations: [Pain in right shoulder]03-05-2021 EpisodicOther screening for suspected conditions (not mental disorders or infectious disease) (12 sources)Encounter for screening for malignant neoplasm of prostate; Translations: [Screening for malignant neoplasms of prostate]EpisodicComment on above:PSA: 1.12 - 06/2024PSA: 0.81 - 07/2018, 0.98 - 06/2023, 1.12 - 06/2024Other upper respiratory disease (20 sources)Vasomotor rhinitis; Translations: [Vasomotor rhinitis]Onset: 090745-74-7823XytllzwMexnp upper respiratory disease (2 sources)Vasomotor rhinitis; Translations: [Allergic rhinitis, cause unspecified]ChronicOther upper respiratory disease (11 sources)Hypertrophy of nasal turbinates; Translations: [Hypertrophy of nasal turbinates]38-97-9141WuanmecdSnhgr upper respiratory disease (1 source)Hypertrophy of nasal turbinates; Translations: [Hypertrophy of nasal turbinates]64-64-6020FgzbbthkZcumdhsu codes; unclassified (3 sources)Other specified postprocedural statesOnset: 04-09-2021 Resolved: 87-74-4031MavgqnwdJucahyyx codes; unclassified (3 sources)Memory impairment; Translations: [Other amnesia]EpisodicSubstance- related disorders (20 sources)Smoker; Translations: [Nicotine dependence]Onset: 01-12-2022 40-53-9214NtrgqobSgwgrjr (16 sources)Near syncope; Translations: [Syncope and collapse]98-86-2798Iwvmabmq Comment on above:Problem List clean-up per request of Phys. EHR Cmte Past or Other Problems Problem ClassificationProblemDateDocumented DateEpisodic/ChronicFluid and electrolyte disorders (6 sources)Hyponatremia; Translations: [Hypo-osmolality and hyponatremia]Onset: 472864-04-9323RorucyuyQichids and fatigue (9 sources)Fatigue; Translations: [Other fatigue]Onset: 09-05-2378RyoegfbzLksuy aftercare (1 source)long-term (current) use of aspirin; Translations: [[facility] CURRENT USE OF ASPIRIN]Onset: 27-78-6040GzyyhoeqStgcq connective tissue disease (5 sources)Other enthesopathies, not elsewhere classified; Translations: [Disorders of bursae and tendons in shoulder region, unspecified]Onset: 95-82-6075GolvadcrGdvuq injuries and conditions due to external causes (1 source)Other adverse effects, not elsewhere classified, initial encounter; Translations: [OTH ADVERSE EFFECTS NEC INITIAL ENC]Onset: 86-26-0562Iwbrieod Residual codes; unclassified (1 source)Other amnesia; Translations: [OTHER AMNESIA]Onset: 21-87-9644Rpaygktc Residual codes; unclassified (1 source)Altered mental status, unspecified; Translations: [ALTERED MENTAL STATUS UNSPECIFIED]Onset: 73-86-1530JefkgcrwEgfaojlw codes; unclassified (1 source)Hallucinations, unspecified; Translations: [HALLUCINATIONS UNSPECIFIED]Onset: 44-42-1987Bbqcrlxz Results Test NameValueInterpretationReference RangeFacilityCT shoulder RT wo conon 10-18-4271BE shoulder RT wo [facility] [place] [address] CT Scan Report Signed Patient: Dai العلي MR#: [id number] : 1945 Acct:[id number] Age/Sex: 79 / M ADM Date: 01/31/25 Loc: CT Room: Type: [facility] Attending Dr: Hawa Starkey MD Copies to: Hawa Starkey MD Ordering Provider: Hawa Starkey MD Date of Service: 01/31/25 CT/CT shoulder [...] the right lung apex with areas of pleural- based calcification. There is a calcified granuloma in the right middle lobe measuring 3 mm in greatest dimension. There is a pleural-based calcified granuloma lateral to this is a [...] Ramires M.D. 01/31/2025 5:52 PM Dictation Location: [place] [address] Transcribed By: [facility] 01/31/251751 Dictated By: Doc Ramires II, MD 01/31/251747 Signed By: 01/31/251751[facility] Physician GroupBasophils Auto (Bld) [#/Vol] Ordered By: Shay Roca on 84-94-0991Acvdpbbkd (Bld) [#/Vol]0.0 10 3/uL0.0-0.[address] HospitalBasophils/100 WBC Auto (Bld)Ordered By: Shay Roca on 49-77-7625Wkrdkksjo/100 WBC (Bld)0.8 %0.2-2.0[facility] [address] HospitalCholesterol in LDL Calc [Mass/Vol]Ordered By: Shay Roca on 43-34-6556Bklhwjaxzfc in LDL [Mass/Vol]178.0 mg/dLWilson [address] HospitalComment on above:<100 mg/dl MFDGEIL178-351 mg/dl NEAR OR ABOVE GJVMQZB926- 159 mg/dl BORDERLINE WNAU512-456 mg/dl HIGH>190 mg/dl VERY HIGHCholesterol in VLDL Calc [Mass/Vol]Ordered By: Shay Roca on 71-08-2569Kfllqacmrbj in VLDL [Mass/Vol]18.0 mg/dLWilson Street HospitalEosinophils/100 WBC Auto (Bld)Ordered By: Shay Roca on 41-27-9437Tsllyyoekhs/100 WBC (Bld)3.1 % 0.9-7.0[address] HospitalErythrocyte distribution width Auto (RBC) [Ratio]Ordered By: Shay Roca on 42-94-2415Mducantlauj distribution width (RBC) [Ratio]12.3 %11.0-15.0[address] HospitalGlobulin Calc (S) [Mass/Vol]Ordered By: Shay Roca on 59-14-4647Vrjwgubh (S) [Mass/Vol]3.5 g/dLWilson [address] HospitalGlomerular filtration rate (GFR) estimation in non- AmericanOrdered By: Shay Roca on 10-29-2024 GFR/1.73 sq M.predicted among non-blacks MDRD (S/P/Bld) [Vol rate/Area] mL/min/{1.73_m2}>=60 mL/min/1.73m 2FAkron Children's HospitalHematocrit Auto (Bld) [Volume fraction]Ordered By: Shay Roca on 89-21-3167Jnjxxlsoyv (Bld) [Volume fraction]38.3 %Low42.0-54.0[facility] Hemoglobin [Mass/volume] in BloodOrdered By: Shay Roca on 10-29-2024 Hemoglobin (Bld) [Mass/Vol]13.0 g/dLLow14.0-18.0[address] HospitalLaboratory - Chemistry and Chemistry - challengeOrdered By: Shay Roca on 05-21-3974Kvtevem [Mass/Vol]4.1 g/dL3.4-5.0[facility] ALP [Catalytic activity/Vol]90 U/Z39-796UeibcwygiWilson [address] HospitalALT [Catalytic activity/Vol]53 U/X39-74PdqyjriflWilson [address] HospitalAST [Catalytic activity/Vol]27 U/P10-61RaxkseximWilson [address] HospitalBilirubin [Mass/Vol]0.5 mg/dL0.2-1.0[address] HospitalCalcium [Mass/Vol]9.2 mg/dL8.5-10.1FAkron Children's HospitalChloride [Moles/Vol]98 mmol/L 98-107[address] HospitalCholesterol [Mass/Vol]259 mg/dLHigh<=[address] HospitalCholesterol in HDL [Mass/Vol]63 mg/zYUnmd76-[address] HospitalComment on above:> or =60 mg/dl - LOW CARDIOVASCULAR RISK<40 mg/dl - HIGH CARDIOVASCULAR RISKCO2 [Moles/Vol]28.8 mmol/L21.0-32.0[address] HospitalCreatinine [Mass/Vol]0.78 mg/dL 0.70-1.30[address] HospitalGFR/1.73 sq M.predicted MDRD (S/P/Bld) [Vol rate/Area]mL/min/{1.73_m2}>=60 mL/min/1.73m 2FAkron Children's HospitalGlucose [Mass/Vol]98 mg/mD92-185BygmpwwcpWilson [address] HospitalPotassium [Moles/Vol]4.0 mmol/L3.5-5.1FAkron Children's HospitalProtein [Mass/Vol] 7.6 g/dL6.4-8.2FJ.W. Ruby Memorial Hospitalodium [Moles/Vol]134 mmol/LLow 136-145[address] HospitalTriglyceride [Mass/Vol]90 mg/dL<=[address] HospitalUrea nitrogen [Mass/Vol]17.0 mg/dL7.0-18.[address] HospitalUrea nitrogen/Creatinine [Mass ratio]21.8 mg/mg [address] HospitalLaboratory - Hematology and Cell countsOrdered By: Shay Roca on 50-19-1797Zpyqmfmq granulocytes/100 WBC (Bld)0.2 %0.0-0.[address] HospitalLeukocytes [#/volume] corrected for nucleated erythrocytes in Blood by Automated counOrdered By: Shay Roca on 10-29-2024 WBC corrected for nucl RBC Auto (Bld) [#/Vol]5.1 10 3/uL4.0-11.0[address] HospitalLymphocytes Auto (Bld) [#/Vol]Ordered By: Shay Roca on 25-16-5166Lzylgnbjvoq (Bld) [#/Vol]1.6 10 3/uL1.2-3.8[address] HospitalLymphocytes/100 WBC Auto (Bld)Ordered By: Shay Roca on 84-20-0339Wmixbnhaetg/100 WBC (Bld)31.7 %20.5-60.0[address] HospitalMCH Auto (RBC) [Entitic mass]Ordered By: Shay Roca on 11-61-0010VLN (RBC) [Entitic mass]32.2 pg25.9-34.0[address] HospitalMCHC Auto (RBC) [Mass/Vol]Ordered By: Shay Roca on 75-78-9951PHVQ (RBC) [Mass/Vol]33.9 g/dL29.9-35.2FAkron Children's HospitalMCV Auto (RBC) [Entitic vol] Ordered By: Shay Roca on 81-99-9343IUB (RBC) [Entitic vol]94.[address] fLHigh 80.0-94.0[address] HospitalMonocytes Auto (Bld) [#/Vol]Ordered By: Shay Roca on 00-35-3146Ajovadcdi (Bld) [#/Vol]0.9 10 3/uLHigh0.3-0.[address] HospitalMonocytes/100 WBC Auto (Bld)Ordered By: Shay Roca on 90-12-6654Qvqstchay/100 WBC (Bld)16.6 %High1.7-12.0[address] HospitalNeutrophils Auto (Bld) [#/Vol]Ordered By: Shay Roca on 99-95-8566Kuiqzckwble (Bld) [#/Vol]2.4 10 3/uL1.4-6.5FAkron Children's HospitalNeutrophils/100 WBC Auto (Bld)Ordered By: Shay Roca on 09-03-3712Dvzfyirpmot/100 WBC (Bld)47.6 %43.0-75.0[address] HospitalNo Panel InformationOrdered By: Shay Roca on 58-39-3511Znvghdckuer # (Auto)0.2 10 3/uL0.0-0.7FAkron Children's HospitalImmature Granulocyte # (Auto)0.01 10 3/uL0.00-0.03[address] HospitalPlatelet mean volume Auto (Bld) [Entitic vol]Ordered By: Shay Roca on 73-35-1616Jpkoexzs mean volume (Bld) [Entitic vol]9.2 fLLow9.5-13.5FAkron Children's Hospital Platelets Auto (Bld) [#/Vol]Ordered By: Shay Roca on 11-29-2764Pquoedtxi (Bld) [#/Vol]306 10 3/jK923-101YgpgqehqnWilson [address] HospitalRBC Auto (Bld) [#/Vol]Ordered By: Shay Roca on 31-00-8353AWK (Bld) [#/Vol]4.04 10 6/uLLow 4.70-6.10[facility] Hospitalerum or plasma albumin/globulin mass ratioOrdered By: Shay Roca on 57-58-7939Yzvqgyk/Globulin [Mass ratio]1.2 {ratio}[facility] Hospitalerum or plasma anion gap determination Ordered By: Shay Roca on 87-96-5744Tdpjr gap [Moles/Vol]11.2 mmol/LFJ.W. Ruby Memorial Hospitalerum or plasma total cholesterol/high density lipoprotein (HDL) cholesterol mass ratOrdered By: hSay Roca on 10-29-2024 Cholesterol.total/Cholesterol in HDL [Mass ratio]4.1 {ratio}[address] HospitalComment on above:3.3 - 4.4 LOW RISK4.4 - 7.1 AVERAGE RISK7.1 - 11.0 MODERATE RISK>11.0 HIGH RISKX-ray reportOrdered By: Bal Cuenca on 08-34-4501Ulvwq reportRIVERVIEW HEALTH [facility] [address] [place] [address] XRay Report Signed Patient: Dai العلي MR#: [id number] : 1945 Acct:[id number] Age/Sex: 79 / M ADM Date: 5 Loc: [facility] Room: Type: [facility] Attending Dr: Hawa Starkey MD Copies to: [...] Jr., D.ONaeem 09/04/2024 12:31 PM Dictation Location: [place] [address] Transcribed By: [facility] 09/04/24 1231 Dictated By: Bal Cuenca Jr, DO 09/04/24 1230 Signed By: 09/04/[address] HospitalXR shoulder RT min 2V*on 00-75-2638JT shoulder RT min 2V*[facility] [address] [place] [address] XRay Report Signed Patient: Dai العلي MR#: [id number] : 1945 Acct:[id number] Age/Sex: 79 / M ADM Date: 09/04/24 Loc: [facility] Room: Type: [facility] Attending Dr: Hawa Starkey MD Copies to: [...] PROCESS. Impression dictated by: Bal Cuenca Jr., ThaoONaeem 09/04/2024 12:31 PM Dictation Location: [place] [address] Transcribed By: [facility] 09/04/24 1231 Dictated By: Bal Cuenca Jr, DO 09/04/24 1230 Signed By: 09/04/24 1231NoW[facility] Physician MvojuQ6C with Estimated Average Gluon 47-13-4590Ivmtzxx [Mass/Vol]105 mg/dLNoWatauga Medical Center Physician [facility] CenterComment on above:Result Comment: PERFORMED BY: [address] [address] PATHOLOGIST ORTHODONTIC TECHNICIAN ASSISTANT FRACISCO ESPINOZA M.D.Performed By: #### A1C WTH eA, CHC CBC, LIPID, EMP PSA, CMP #### [facility] [address] [place] [address] LLWIwW6b (Bld) [Mass fraction]5.3 %Normal4.3-5.6The [facility] Physician GroupComment on above:Result Comment: Increased risk for diabetes: 5.7 - 6.4 diabetes: >6.4 glycemic control for adults with diabetes: <7.0Performed By: #### A1C WTH eA, CHC CBC, LIPID, EMP PSA, CMP #### [facility] [address] StreetAlanine aminotransferase [Enzymatic activity/volume] in Serum or PlasmaOrdered By: Phil Pierre on 80-68-9590KOD [Catalytic activity/Vol] Alanine aminotransferase [Enzymatic activity/volume] in Serum or Plasma7-[address] HospitalAlbumin [Mass/volume] in Serum or Plasma by Bromocresol green (BCG) dye binding methoOrdered By: Phil Pierre on 07-03-2024 Albumin BCG dye [Mass/Vol]Albumin [Mass/volume] in Serum or Plasma by Bromocresol green (BCG) dye binding metho3.5-5.7FAkron Children's HospitalAlkaline phosphatase [Enzymatic activity/volume] in Serum or PlasmaOrdered By: Phil Pierre on 27-87-1950RZO [Catalytic activity/Vol]Alkaline phosphatase [Enzymatic activity/volume] in Serum or Asukdv44-658OmaoepshzWilson Street HospitalAspartate aminotransferase [Enzymatic activity/volume] in Serum or Plasma Ordered By: Phil Pierre on 01-91-3680ZIF [Catalytic activity/Vol]Aspartate aminotransferase [Enzymatic activity/volume] in Serum or Qgppzw05-11ArliolaepWilson [address] HospitalBasophils Auto (Bld) [#/Vol]Ordered By: Phil Pierre on 08-47-4943Brhbzupdz (Bld) [#/Vol]Automated basophil count0.0-0.2FAkron Children's HospitalBasophils/100 WBC Auto (Bld)Ordered By: Phil Pierre on 84-40-4250Hqwikzynq/100 WBC (Bld)Automated basophil %.[address] HospitalBilirubin.total [Mass/volume] in Serum or PlasmaOrdered By: Phil Pierre on 02-87-4733Rzecwevbu [Mass/Vol]Bilirubin.total [Mass/volume] in Serum or Plasma 0.3-1.0[address] HospitalBlood estimated average glucose determination by estimation from glycated hemoglobinOrdered By: Phil Pierre on 11-19-1784Vauhteg glucose Estimated from glycated hemoglobin (Bld) [Mass/Vol] Glucose mean value [Mass/volume] in Blood Estimated from glycated hemoglobin [address] HospitalCalcium [Mass/volume] in Serum or PlasmaOrdered By: Phil Pierre on 21-57-9802Howkrov [Mass/Vol]Calcium [Mass/volume] in Serum or PlasmaHigh8.6-10.3FAkron Children's HospitalCarbon dioxide, total [Moles/volume] in Serum or PlasmaOrdered By: Phil Pierre on 46-58-0851GS6 [Moles/Vol]Carbon dioxide, total [Moles/volume] in Serum or Ztnvtn28.0-31.[address] HospitalChloride [Moles/volume] in Serum or Plasma Ordered By: Phil Pierre on 59-88-6278Ohwtcvgw [Moles/Vol]Chloride [Moles/volume] in Serum or GuygezXcl25-717PffbbfrbmWilson [address] HospitalCholesterol [Mass/volume] in Serum or PlasmaOrdered By: Phil Pierre on 00-30-2863Afcpxvqqibh [Mass/Vol]Cholesterol [Mass/volume] in Serum or StcozsBmqz469-350PmsoseligWilson [address] HospitalComment on above:Chol less than 200 mg/dl low riskChol 201-239 mg/dl borderline riskChol 240 mg/dl and greater high riskCholesterol in HDL [Mass/volume] in Serum or PlasmaOrdered By: Phil Pierre on 07-03-2024 Cholesterol in HDL [Mass/Vol]Serum or plasma high density lipoprotein (HDL) cholesterol ejevjbdkjyc07-34QobsbfqtvWilson [address] HospitalComment on above: HDL CHOL ATP-III CLASSIFICATION Cardiovascular RiskHDL > or equal to 60 mg/dL LOWHDL < 40 mg/dL HIGHCholesterol in LDL Calc [Mass/Vol]Ordered By: Phil Pierre on 92-81-2673Zlbcyoaidjh in LDL [Mass/Vol]Cholesterol in LDL [Mass/volume] in Serum or Plasma by calculationHigh0-100[address] HospitalComment on above:LDL ATP III CLASSIFICATIONLDL less than 100 mg/dL OptimalLDL 100-129 mg/dL Near or above temtvdmSAS826-908 mg/dL Borderline highLDL 160-189 mg/dL HighLDL greater than 189 mg/dL Very highCholesterol in VLDL Calc [Mass/Vol] Ordered By: Phil Pierre on 57-08-3318Eudbiatpdqf in VLDL [Mass/Vol]Cholesterol in VLDL [Mass/volume] in Serum or Plasma by calculationWilson Street HospitalComplete Blood Count no reflexon 93-14-1815Kreyoetbu (Bld) [#/Vol]0.1 10*3/uLNormal0.0-0.2The [facility] Physician GroupComment on above:Result Comment: PERFORMED BY: [place] [address] PATHOLOGIST ORTHODONTIC TECHNICIAN ASSISTANT FRACISCO ESPINOZA M.D.Performed By: #### A1C WTH eA, CHC CBC, LIPID, EMP PSA, CMP #### [facility] [address] [place] [address] USABasophils/100 WBC (Bld)1.2 %Normal.The [facility] Physician GroupComment on above:Performed By: #### A1C WTH eA, CHC CBC, LIPID, EMP PSA, CMP #### [place] [address] USAEosinophils (Bld) [#/Vol]0.2 10*3/uLNormal0.0-0.45The [facility] Physician GroupComment on above:Performed By: #### A1C WTH eA, CHC CBC, LIPID, EMP PSA, CMP #### [place] [id number] USAEosinophils/100 WBC (Bld)3.7 %Normal.The [facility] Physician GroupComment on above:Performed By: #### A1C WTH eA, CHC CBC, LIPID, EMP PSA, CMP #### [place] [address] USAErythrocyte distribution width (RBC) [Ratio]12.5 %Normal 12.0-14.8The [facility] Physician GroupComment on above:Performed By: #### A1C WTH eA, CHC CBC, LIPID, EMP PSA, CMP #### [address] [place] [address] USAHematocrit (Bld) [Volume fraction]41.7 %Lhurha28.8-50.0The [facility] Physician GroupComment on above:Performed By: #### A1C WTH eA, CHC CBC, LIPID, EMP PSA, CMP #### [place] [address] USAHemoglobin (Bld) [Mass/Vol]14.2 g/oKRgepvu79.0-17.0The [facility] Physician GroupComment on above:Performed By: #### A1C WTH eA, CHC CBC, LIPID, EMP PSA, CMP #### [place] [address] USALymphocytes (Bld) [#/Vol]1.8 10*3/uLNormal1.00-4.8The [facility] Physician GroupComment on above:Performed By: #### A1C WTH eA, CHC CBC, LIPID, EMP PSA, CMP #### [place] [address] USALymphocytes/100 WBC (Bld)31.5 %Normal.The [facility] Physician GroupComment on above:Performed By: #### A1C WTH eA, CHC CBC, LIPID, EMP PSA, CMP #### [place] [address] USAH (RBC) [Entitic mass]33.1 odExbxza66.5-35.2The [facility] Physician GroupComment on above:Performed By: #### A1C WTH eA, CHC CBC, LIPID, EMP PSA, CMP #### [place] [address] USAV (RBC) [Entitic vol]97.1 zIHkmzay37.5-101The [facility] Physician GroupComment on above:Performed By: #### A1C WTH eA, CHC CBC, LIPID, EMP PSA, CMP #### [place] [address] USAMean Corpuscular HGB Conc34.1 g/aXWuzlfw65.5-35.6The [facility] Physician GroupComment on above:Performed By: #### A1C WTH eA, CHC CBC, LIPID, EMP PSA, CMP #### [facility] [address] [place] [address] USAMonocytes (Bld) [#/Vol]1.0 10*3/uLHigh0.0-0.8The [facility] Physician GroupComment on above:Performed By: #### A1C WTH eA, CHC CBC, LIPID, EMP PSA, CMP #### [facility] [address] [place] [address] USAMonocytes/100 WBC (Bld)17.4 %Normal.The [facility] Physician GroupComment on above:Performed By: #### A1C WTH eA, CHC CBC, LIPID, EMP PSA, CMP #### [facility] [address] [place] [address] USANeutrophils (Bld) [#/Vol]2.7 10*3/uLNormal1.8-7.7The [facility] Physician GroupComment on above:Performed By: #### A1C WTH eA, CHC CBC, LIPID, EMP PSA, CMP #### [facility] [address] [place] [address] USANeutrophils/100 WBC (Bld)46.2 %Normal.The [facility] Physician GroupComment on above:Performed By: #### A1C WTH eA, CHC CBC, LIPID, EMP PSA, CMP #### [facility] [address] [place] [address] USANRBC%0.2 /100{WBC}Normal0-0.5The [facility]ician Group Comment on above:Performed By: #### A1C WTH eA, CHC CBC, LIPID, EMP PSA, CMP #### [facility] [address] [place] [address] USAPlatelet mean volume (Bld) [Entitic vol]8.0 fLNormal 6.6-10.1The [facility] Physician GroupComment on above:Performed By: #### A1C WTH eA, CHC CBC, LIPID, EMP PSA, CMP #### [facility] [address] [place] [address] USAPlatelets (Bld) [#/Vol]310 10*3/eNLbdtis688-726Wlo [facility] Physician GroupComment on above:Performed By: #### A1C WTH eA, CHC CBC, LIPID, EMP PSA, CMP #### [facility] [address] [place] [address] USARBC (Bld) [#/Vol]4.29 10*6/uLNormal3.90-5.60The [facility] Physician GroupComment on above:Performed By: #### A1C WTH eA, CHC CBC, LIPID, EMP PSA, CMP #### [facility] [address] [place] [address] USAWBC (Bld) [#/Vol]5.8 10*3/uLNormal4.1-10.5The [facility] Physician GroupComment on above:Performed By: #### A1C WTH eA, CHC CBC, LIPID, EMP PSA, CMP #### [place] [address] USAComprehensive Metabolic Panelon 95-29-1253Cozhzqz [Mass/Vol]4.8 g/dLNormal3.5-5.7The [facility] Physician GroupComment on above: Performed By: #### A1C WTH eA, CHC CBC, LIPID, EMP PSA, CMP #### [place] [address] USAAlbumin/Globulin [Mass ratio]1.7 {ratio}NormalThe Formerly [facility] Physician GroupComment on above:Performed By: #### A1C WTH eA, CHC CBC, LIPID, EMP PSA, CMP #### [place] [address] USAALP [Catalytic activity/Vol]78 U/XVguxbl32-883Pey [facility] Physician GroupComment on above:Performed By: #### A1C WTH eA, CHC CBC, LIPID, EMP PSA, CMP #### [place] [address] USAALT [Catalytic activity/Vol]28 U/LNormal7-52The [facility] Physician GroupComment on above:Performed By: #### A1C WTH eA, CHC CBC, LIPID, EMP PSA, CMP #### [facility] [address] [place] [address] USAAnion gap [Moles/Vol]13.5 mmol/LNormal6.0-15.0The Formerly Hoots [facility] Physician GroupComment on above:Performed By: #### A1C WTH eA, CHC CBC, LIPID, EMP PSA, CMP #### [facility] [address] [place] [address] USAAST [Catalytic activity/Vol]30 U/YBrdvsn48-19Aiu [facility] Physician GroupComment on above:Performed By: #### A1C WTH eA, CHC CBC, LIPID, EMP PSA, CMP #### [place] [address] USABilirubin [Mass/Vol]0.8 mg/dLNormal0.3-1.0The [facility] Physician GroupComment on above:Performed By: #### A1C WTH eA, CHC CBC, LIPID, EMP PSA, CMP #### [place] [address] USACalcium [Mass/Vol]10.5 mg/dLHigh8.6-10.3The [facility] Physician GroupComment on above:Performed By: #### A1C WTH eA, CHC CBC, LIPID, EMP PSA, CMP #### [place] [address] USAChloride [Moles/Vol]96 mmol/UYje94-644Zho [facility] Physician GroupComment on above:Performed By: #### A1C WTH eA, CHC CBC, LIPID, EMP PSA, CMP #### [place] [address] USACO2 [Moles/Vol]28.6 mmol/SAzcvrf51.0-31.0The [facility] Physician GroupComment on above:Performed By: #### A1C WTH eA, CHC CBC, LIPID, EMP PSA, CMP #### [place] [address] USACreatinine [Mass/Vol]0.98 mg/dLNormal0.70-1.30The [facility] Physician GroupComment on above:Performed By: #### A1C WTH eA, CHC CBC, LIPID, EMP PSA, CMP #### [facility] [address] [place] [address] USAGFR/1.73 sq M.predicted MDRD (S/P/Bld) [Vol rate/Area] mL/min/{1.73_m2}NormalThe Formerly [facility] Physician GroupComment on above:Performed By: #### A1C WTH eA, CHC CBC, LIPID, EMP PSA, CMP #### [facility] [address] [place] [address] USAGlobulin (S) [Mass/Vol]2.9 g/dLNormalThe [facility] Physician GroupComment on above:Performed By: #### A1C WTH eA, CHC CBC, LIPID, EMP PSA, CMP #### [place] [address] USAGlucose [Mass/Vol]106 mg/qTKdce47-595Eus [facility] Physician GroupComment on above:Result Comment: Random Glucose Reference Range is dependent on time and content of last meal. Glucose of more than 200 mg/dL in a nonstressed, ambulatory subject supports the diagnosis of Diabetes Mellitus. ADA recommended reference rangePerformed By: #### A1C WTH eA, CHC CBC, LIPID, EMP PSA, CMP #### [place] [address] USAPotassium [Moles/Vol]4.1 mmol/LNormal3.5-5.1The [facility] Physician GroupComment on above:Performed By: #### A1C WTH eA, CHC CBC, LIPID, EMP PSA, CMP #### [place] [address] USAProtein [Mass/Vol]7.7 g/dLNormal6.4-8.9The [facility] Physician GroupComment on above:Performed By: #### A1C WTH eA, CHC CBC, LIPID, EMP PSA, CMP #### [place] [address] USASodium [Moles/Vol]134 mmol/FKya150-884Xdf [facility] Physician GroupComment on above:Performed By: #### A1C WTH eA, CHC CBC, LIPID, EMP PSA, CMP #### [address] [place] [address] USAUrea nitrogen [Mass/Vol]15 mg/dLNormal7-25The [facility] Physician GroupComment on above:Performed By: #### A1C [facility] eA, [facility] CBC, LIPID, EMP PSA, CMP #### [facility] [address] [place] [address] USACreatinine [Mass/volume] in Serum or PlasmaOrdered By: Phil Pierre on 20-77-7956Jgdxpjbnbb [Mass/Vol]Creatinine [Mass/volume] in Serum or Plasma0.70-1.30[address] HospitalEmployee PSA Totalon 70-44-3928XTN Total ([facility] Orders)1.120 ng/mLNormal0.000-4.000The [facility] Physician GroupComment on above:Result Comment: Serial tumor marker results determined by assays using different manufacturers or methods may not be comparable. [facility] flyer maker and method: NerdiesEL DXI, CHEMILUMINESCENT IMMUNOASSAY. PERFORMED BY: [address] [place] [address] PATHOLOGIST ORTHODONTIC TECHNICIAN ASSISTANT FRACISCO ESPINOZA M.D.Performed By: #### A1C [facility] Wesley, [facility] CBC, LIPID, EMP PSA, CMP #### [facility] [address] [place] [address] USAEosinophils Auto (Bld) [#/Vol]Ordered By: Phil Pierre on 26-65-3427Tfloirjlemz (Bld) [#/Vol]Automated eosinophil count0.0-0.45[address] HospitalEosinophils/100 WBC Auto (Bld)Ordered By: Phil Pierre on 61-78-4960Sksjmdlgigx/100 WBC (Bld)Automated eosinophil %.[address] HospitalErythrocyte distribution width Auto (RBC) [Ratio]Ordered By: Phil Pierre on 87-10-0001Uupvbpxpliu distribution width (RBC) [Ratio]Erythrocyte distribution width [Ratio] by Automated count12.0-14.8[address] HospitalGlobulin Calc (S) [Mass/Vol]Ordered By: Phil Pierre on 40-97-9148Wdmgxwhf (S) [Mass/Vol]Serum globulin measurement by calculation (mass/volume)[facility] HospitalGlucose [Mass/volume] in Serum or PlasmaOrdered By: Phil Pierre on 05-23-7065Rqsfohh [Mass/Vol]Glucose [Mass/volume] in Serum or Plasma Bewq48-352BtalfeidxWilson Street HospitalComment on above:ADA recommended reference rangeRandom Glucose Reference Range is dependent on time and content of last meal. Glucose of more than 200 mg/dL in a nonstressed, ambulatory subject supports the diagnosisof Diabetes Mellitus.Hematocrit Auto (Bld) [Volume fraction]Ordered By: Phil Pierre on 44-44-0721Syblytjbmq (Bld) [Volume fraction] Hematocrit [Volume Fraction] of Blood by Automated count38.8-50.0[address] HospitalHemoglobin A1c/Hemoglobin.total in BloodOrdered By: Phil Pierre on 79-45-9836BcC2k (Bld) [Mass fraction]Hemoglobin A1c percentage4.3-5.[address] HospitalComment on above:Increased risk for diabetes: 5.7 - 6.4diabetes: >6.4glycemic control for adults with diabetes: <7.0 Hemoglobin [Mass/volume] in BloodOrdered By: Phil Pierre on 25-10-4483Obomxvsgrr (Bld) [Mass/Vol]Hemoglobin [Mass/volume] in Blood13.0-17.0[address] HospitalLeukocytes [#/volume] corrected for nucleated erythrocytes in Blood by Automated counOrdered By: Phil Pierre on 54-31-8531ZQT corrected for nucl RBC Auto (Bld) [#/Vol]Leukocytes [#/volume] corrected for nucleated erythrocytes in Blood by Automated coun4.1-10.5FAkron Children's Hospital Lipid Panelon 48-36-4451Wikryzbjxab [Mass/Vol]301 mg/vNAqhz816-502Gyg [facility] Physician GroupComment on above:Result Comment: Chol less than 200 mg/dl low risk Chol 201-239 mg/dl borderline risk Chol 240 mg/dl and greater high riskPerformed By: #### A1C WTH eA, CHC CBC, LIPID, EMP PSA, CMP #### [facility] [address] [place] [address] USACholesterol in HDL [Mass/Vol]65 mg/qUNrszvd47-99Omn [facility] Physician GroupComment on above:Result Comment: HDL CHOL ATP-III CLASSIFICATION Cardiovascular Risk HDL > or equal to 60 mg/dL LOW HDL < 40 mg/dL HIGHPerformed By: #### A1C WT eA, CHC CBC, LIPID, EMP PSA, CMP #### [facility] [address] [place] [address] USACholesterol.total/Cholesterol in HDL [Mass ratio]4.6 {ratio}Normal<5.0The [facility] Physician GroupComment on above:Result Comment: PERFORMED BY: [place] [address] PATHOLOGIST ORTHODONTIC TECHNICIAN ASSISTANT FRACISCO ESPINOZA M.D.Performed By: #### A1C WTH eA, CHC CBC, LIPID, EMP PSA, CMP #### [facility] [address] [place] [address] USALDL Cholesterol,Gpjttbzbtz023 mg/dLHigh0-100The [facility] Physician GroupComment on above:Result Comment: LDL ATP III CLASSIFICATION LDL less than 100 mg/dL Optimal LDL 100-129 mg/dL Near or above optimal LDL 130-159 mg/dL Borderline high LDL 160-189 mg/dL High LDL greater than 189 mg/dL Very highPerformed By: #### A1C WTH eA, [facility] CBC, LIPID, EMP PSA, CMP #### [facility] [address] [place] [address] USATriglyceride w/Ucxgcu423 mg/dLHigh0-149The [facility] Physician GroupComment on above:Result Comment: TRIG ATP III CLASSIFICATION TRIG less than 150 mg/dL Normal TRIG 150-199 mg/dL Borderline high TRIG 200-500 mg/dL High TRIG greater than 500 mg/dL Very high Standard traceable to the Center for Disease Conrtrol and Prevention (CDC) test method.Performed By: #### A1C WTH eA, CHC CBC, LIPID, EMP PSA, CMP #### [facility] [address] [place] [address] USAVLDL HNONHEPVTIV52 mg/dLNormalThe [facility] Physician GroupComment on above:Performed By: #### A1C WTH eA, CHC CBC, LIPID, EMP PSA, CMP #### [facility] [address] [place] [address] USALymphocytes Auto (Bld) [#/Vol]Ordered By: Phil Pierre on 30-93-0815Gkoylnmoocb (Bld) [#/Vol]Lymphocytes [#/volume] in Blood by Automated count1.00-4.8[address] HospitalLymphocytes/100 WBC Auto (Bld) Ordered By: Phil Pierre on 62-00-9656Arjpbrhjnij/100 WBC (Bld)Lymphocytes/100 leukocytes in Blood by Automated count.[facility] HospitalH Auto (RBC) [Entitic mass]Ordered By: Phil Pierre on 12-10-5750YZD (RBC) [Entitic mass]MCH [Entitic mass] by Automated count27.5-35.2FAkron Children's HospitalMCHC Auto (RBC) [Mass/Vol]Ordered By: Phil Pierre on 87-42-7898PYCP (RBC) [Mass/Vol]MCHC [Mass/volume] by Automated count32.5-35.6FAkron Children's HospitalMCV Auto (RBC) [Entitic vol]Ordered By: Phil Pierre on 07-03-2024 MCV (RBC) [Entitic vol]MCV [Entitic volume] by Automated count83.5-101[address] HospitalMonocytes Auto (Bld) [#/Vol]Ordered By: Phil Pierre on 44-86-9457Byxiingza (Bld) [#/Vol]Automated blood monocyte countHigh0.0-0.[address] HospitalMonocytes/100 WBC Auto (Bld)Ordered By: Phil Pierre on 29-84-5390Fgpjgwuun/100 WBC (Bld)Automated monocyte %.[address] HospitalNeutrophils Auto (Bld) [#/Vol]Ordered By: Phil Pierre on 73-12-4322Whvqzwcocey (Bld) [#/Vol]Neutrophils [#/volume] in Blood by Automated count1.8-7.7FAkron Children's HospitalNeutrophils/100 WBC Auto (Bld) Ordered By: Phil Pierre on 20-83-9746Hbuffiyybdv/100 WBC (Bld)Automated neutrophil %.[address] HospitalNo Panel InformationOrdered By: Phil Pierre on 08-16-4965Vvzexxyfx GFR (CKD-EPI)> 60.0 mL/MinWilson Street HospitalPharmacy Creatinine Clearance (ChemN/AFAkron Children's HospitalNucleated erythrocytes [Presence] in Blood by Automated countOrdered By: Phil Pierre on 87-14-3202Hxbdpmwgj RBC Auto Ql (Bld)Nucleated erythrocytes [Presence] in Blood by Automated count0-0.5FAkron Children's Hospital Platelet mean volume Auto (Bld) [Entitic vol]Ordered By: Phil Pierre on 45-23-2496Awfhwxvm mean volume (Bld) [Entitic vol]Platelet mean volume [Entitic volume] in Blood by Automated count6.6-10.1FAkron Children's Hospital Platelets Auto (Bld) [#/Vol]Ordered By: Phil Pierre on 11-90-5055Ywvqdiqaq (Bld) [#/Vol]Platelets [#/volume] in Blood by Automated qqtna174-114KdyczrmfeWilson [address] HospitalPotassium [Moles/volume] in Serum or PlasmaOrdered By: Phil Pierre on 18-87-2308Szyhhukir [Moles/Vol]Potassium [Moles/volume] in Serum or Plasma 3.5-5.1FAkron Children's HospitalProstate specific Ag [Mass/volume] in Serum or PlasmaOrdered By: Phil Pierre on 02-99-9055Kvslkjad specific Ag [Mass/Vol]Prostate specific Ag [Mass/volume] in Serum or Plasma0.000-4.[address] HospitalComment on above:Serial tumor marker results determined by assays using different manufacturers or methods may not be comparable.[facility] flyer maker and method:SAUL ExerosEL DXI, CHEMILUMINESCENT IMMUNOASSAY.Protein [Mass/volume] in Serum or PlasmaOrdered By: Phil Pierre on 98-37-3578Vzoomjt [Mass/Vol]Protein [Mass/volume] in Serum or Plasma6.4-8.9[address] HospitalRBC Auto (Bld) [#/Vol]Ordered By: Phil Pierre on 74-02-3831UVZ (Bld) [#/Vol]Erythrocytes [#/volume] in Blood by Automated count3.90-5.60[facility] Hospitalerum or plasma albumin/globulin mass ratioOrdered By: Phil Pierre on 27-50-8162Cnhouev/Globulin [Mass ratio]Serum or plasma albumin/globulin mass ratioOhioHealth Shelby Hospitalerum or plasma anion gap determinationOrdered By: Phil Pierre on 37-60-1361Lcins gap [Moles/Vol]Serum or plasma anion gap determination6.0-15.0 [facility] Hospitalerum or plasma total cholesterol/high density lipoprotein (HDL) cholesterol mass ratOrdered By: Phil Pierre on 07-03-2024 Cholesterol.total/Cholesterol in HDL [Mass ratio]Serum or plasma total cholesterol/high density lipoprotein (HDL) cholesterol mass rat<5.0[facility] Hospitalodium [Moles/volume] in Serum or PlasmaOrdered By: Phil Pierre on 40-95-2655Ekmfej [Moles/Vol]Sodium [Moles/volume] in Serum or PlasmaLow 136-145[address] HospitalTriglyceride [Mass/volume] in Serum or PlasmaOrdered By: Phil Pierre on 86-75-1978Mqasftimkeoj [Mass/Vol]Triglyceride [Mass/volume] in Serum or PlasmaHigh0-149[facility] Comment on above:TRIG ATP III CLASSIFICATIONTRIG less than 150 mg/dL NormalTRIG 150-199 mg/dL Borderline highTRIG 200-500 mg/dL High TRIG greater than 500 mg/dL Very highStandard traceable to the Center for Disease Conrtrol and Prevention (CDC) test method.Urea nitrogen [Mass/volume] in Serum or PlasmaOrdered By: Phil Pierre on 91-36-1962Inln nitrogen [Mass/Vol]Urea nitrogen [Mass/volume] in Serum or Plasma7-25[address] HospitalWBC Auto (Bld) [#/Vol] Ordered By: Phil Pierre on 02-08-5176XJO (Bld) [#/Vol]Leukocytes [#/volume] in Blood by Automated count4.1-10.5FAkron Children's HospitalXR Foot - right 3 Viewson 01-14-4669Zeyoxpt Result: Notable degenerative changes to 1st MPJ with decreased joint space narrowing and negative fractures identified with increase of interphalangeal angle of the right hallux IPJNOAspirus [facility] Radiology Study observation (narrative)[facility]OM[facility] HealthcareInfluenza virus B Ag [Presence] in Upper respiratory specimen by Rapid immunoassayon 05-85-9138FAREY Ag IA.rapid Ql (Nph)Influenza virus B Ag [Presence] in Upper respiratory specimen by Rapid immunoassayWilson Street HospitalNo Panel Informationon 65-23-5687Znweupdai Type A (Rapid)NegativeWilson [address] HospitalPOC SARS CoV-[address] Basophils Auto (Bld) [#/Vol]on 42-62-6537Qnyvfenlj (Bld) [#/Vol]0.1 10 3/uL 0.0-0.1FAkron Children's HospitalBasophils/100 WBC Auto (Bld)on 40-71-6164Yoolhgyig/100 WBC (Bld)0.7 %0.2-2.0[facility] Eosinophils/100 WBC Auto (Bld)on 57-66-1319Hckjwkcdedv/100 WBC (Bld)2.8 %0.9-7.[address] HospitalErythrocyte distribution width Auto (RBC) [Ratio]on 66-08-7703Wapwpcucxsr distribution width (RBC) [Ratio]11.5 %11.0-15.[address] HospitalHematocrit Auto (Bld) [Volume fraction]on 21-17-3537Jtwgfoguzh (Bld) [Volume fraction]40.7 %Low42.0-54.0[address] HospitalHemoglobin [Mass/volume] in Bloodon 38-03-3781Kxnxpcevvj (Bld) [Mass/Vol]13.6 g/dLLow14.0-18.0[address] HospitalIron binding capacity [Mass/volume] in Serum or Plasmaon 25-48-0079Ywkt binding capacity [Mass/Vol]362.0 ug/dL250.0-450.0[address] HospitalIron saturation [Mass Fraction] in Serum or Plasmaon 66-37-6713Gqzf saturation [Mass fraction] 32.[address] HospitalLaboratory - Chemistry and Chemistry - challengeon 34-26-7336Gdcygjyri (Vitamin B12) [Mass/Vol]1150.0 pg/mLHigh 193.0-986.0[address] HospitalFerritin [Mass/Vol]277.0 ng/mL 26.0-388.0[address] HospitalIron [Mass/Vol]117.0 ug/dL65.0-175.[address] HospitalLaboratory - Hematology and Cell countson 39-37-6544Dzyczcnt granulocytes/100 WBC (Bld)0.3 %0.0-0.5FAkron Children's HospitalLeukocytes [#/volume] corrected for nucleated erythrocytes in Blood by Automated counon 35-49-9795YGE corrected for nucl RBC Auto (Bld) [#/Vol]6.8 10 3/uL4.0-11.0[address] HospitalLymphocytes Auto (Bld) [#/Vol]on 60-17-1423Ukxllpnxdcv (Bld) [#/Vol]1.8 10 3/uL1.2-3.8[address] HospitalLymphocytes/100 WBC Auto (Bld)on 10-10-2023 Lymphocytes/100 WBC (Bld)25.9 %20.5-60.0[facility] HospitalH Auto (RBC) [Entitic mass]on 60-33-8955AYV (RBC) [Entitic mass]32.4 pg25.9-34.[address] HospitalMCHC Auto (RBC) [Mass/Vol]on 12-63-9780JRMK (RBC) [Mass/Vol]33.4 g/dL29.9-35.2FAkron Children's HospitalMCV Auto (RBC) [Entitic vol]on 70-10-3592NUL (RBC) [Entitic vol]96.[address]xva32.0-94.[address] HospitalMonocytes Auto (Bld) [#/Vol]on 10-10-2023 Monocytes (Bld) [#/Vol]1.0 10 3/uLHigh0.3-0.8[facility] Monocytes/100 WBC Auto (Bld)on 91-08-4858Xahqbhynn/100 WBC (Bld)15.2 %High 1.7-12.0[address] HospitalNeutrophils Auto (Bld) [#/Vol]on 72-21-2983Azzlbhhcotq (Bld) [#/Vol]3.7 10 3/uL1.4-6.5FAkron Children's HospitalNeutrophils/100 WBC Auto (Bld)on 19-41-1687Caqydcirwmc/100 WBC (Bld)55.1 % 43.0-75.0[address] HospitalNo Panel Informationon 10-10-2023 Eosinophils # (Auto)0.2 10 3/uL0.0-0.7FAkron Children's HospitalFolate 26.40 ng/mL8.60-58.90[address] HospitalImmature Granulocyte # (Auto)0.02 10 3/uL0.00-0.03[address] HospitalPlatelet mean volume Auto (Bld) [Entitic vol]on 42-93-0957Ryumxhwk mean volume (Bld) [Entitic vol] 9.0 fLLow9.5-13.5FAkron Children's HospitalPlatelets Auto (Bld) [#/Vol]on 79-88-7208Laiuzzbgc (Bld) [#/Vol]320 10 3/nS208-213PkqfxujopWilson [address] HospitalRBC Auto (Bld) [#/Vol]on 89-74-3177NCV (Bld) [#/Vol]4.20 10 6/uLLow 4.70-6.10[address] HospitalBasophils Auto (Bld) [#/Vol]on 90-07-2642Rsauuqlzn (Bld) [#/Vol]0.0 10 3/uL0.0-0.1FAkron Children's HospitalBasophils/100 WBC Auto (Bld)on 66-03-2086Rfvgxjvqi/100 WBC (Bld)0.5 % 0.2-2.0[address] HospitalCholesterol in LDL Calc [Mass/Vol]on 44-33-5045Bgfkjdobzgk in LDL [Mass/Vol]187.0 mg/dLWilson Street HospitalComment on above:<100 mg/dl TOWHCLN270-175 mg/dl NEAR OR ABOVE LIPCSBQ651- 159 mg/dl BORDERLINE PAAP055-671 mg/dl HIGH>190 mg/dl VERY HIGHCholesterol in VLDL Calc [Mass/Vol]on 33-51-8747Gmrbbbmuthl in VLDL [Mass/Vol]20.4 mg/dL [address] HospitalEosinophils/100 WBC Auto (Bld)on 06-29-2023 Eosinophils/100 WBC (Bld)3.8 %0.9-7.0[facility] Erythrocyte distribution width Auto (RBC) [Ratio]on 43-39-3121Hockbcaciqm distribution width (RBC) [Ratio]11.9 %11.0-15.0[facility] Estimated glomerular filtration rate (GFR) non- Americanon 06-29-2023 GFR/1.73 sq M.predicted among non-blacks MDRD (S/P/Bld) [Vol rate/Area] mL/min/{1.73_m2}>=60[address] HospitalGlobulin Calc (S) [Mass/Vol]on 49-75-5690Rpzrsyhx (S) [Mass/Vol]3.8 g/dLWilson Street HospitalGlucose mean value [Mass/volume] in Blood Estimated from glycated hemoglobinon 57-71-3774Jhtomkr glucose Estimated from glycated hemoglobin (Bld) [Mass/Vol]103 mg/dLWilson [address] HospitalHematocrit Auto (Bld) [Volume fraction]on 25-05-1845Nuvwufuvuk (Bld) [Volume fraction]40.0 %42.0-54.[address] HospitalHemoglobin [Mass/volume] in Bloodon 06-29-2023 Hemoglobin (Bld) [Mass/Vol]13.3 g/dL14.0-18.0[facility] Laboratory - Chemistry and Chemistry - challengeon 13-12-9588Vihvaty [Mass/Vol] 4.2 g/dL3.4-5.0[address] HospitalALP [Catalytic activity/Vol]89 U/K24-874CvyaiaevsWilson [address] HospitalALT [Catalytic activity/Vol]39 U/L 16-63[address] HospitalAST [Catalytic activity/Vol]27 U/L15-[address] HospitalBilirubin [Mass/Vol]0.5 mg/dL0.2-1.0[address] HospitalCalcium [Mass/Vol]9.6 mg/dL8.5-10.1FAkron Children's HospitalChloride [Moles/Vol]94 mmol/U11-571QqgbiktyeWilson [address] HospitalCholesterol [Mass/Vol]264 mg/dL<=200[facility] Cholesterol in HDL [Mass/Vol]57 mg/cM89-11AsvubuhdeWilson [address] Hospital Comment on above:> or =60 mg/dl - LOW CARDIOVASCULAR RISK<40 mg/dl - HIGH CARDIOVASCULAR RISKCO2 [Moles/Vol]26.2 mmol/L21.0-32.0[address] HospitalCreatinine [Mass/Vol]0.96 mg/dL0.70-1.30[facility] GFR/1.73 sq M.predicted MDRD (S/P/Bld) [Vol rate/Area]mL/min/{1.73_m2}>=[address] HospitalGlucose [Mass/Vol]85 mg/jZ18-706UjbulycvhWilson [address] HospitalPotassium [Moles/Vol]4.6 mmol/L3.5-5.1FAkron Children's HospitalProtein [Mass/Vol]8.0 g/dL6.4-8.2FAkron Children's Hospital Sodium [Moles/Vol]133 mmol/D369-231MheujxzjdWilson [address] HospitalT4 [Mass/Vol]6.00 ug/dL4.50-12.10[address] HospitalTriglyceride [Mass/Vol]102 mg/dL<=150[address] HospitalTSH Qn0.951 m[IU]/L 0.358-3.740[address] HospitalUrea nitrogen [Mass/Vol]10.0 mg/dL 7.0-18.0[address] HospitalUrea nitrogen/Creatinine [Mass ratio] 10.4 mg/mgWilson [address] HospitalLaboratory - Hematology and Cell countson 86-75-8805AmE7f (Bld) [Mass fraction]5.2 %4.5-6.2FAkron Children's HospitalComment on above:ADA RECOMMENDED LIMIT 4.0 - 6.0ADA THERAPEUTIC TARGET < 7.0ACTION SUGGESTED> 7.0Immature granulocytes/100 WBC (Bld)0.2 %0.0-0.[address] HospitalLeukocytes [#/volume] corrected for nucleated erythrocytes in Blood by Automated counon 56-01-1834OZH corrected for nucl RBC Auto (Bld) [#/Vol]5.5 10 3/uL4.0-11.0[facility] Lymphocytes Auto (Bld) [#/Vol]on 55-77-4265Njujvwjhvsi (Bld) [#/Vol]2.1 10 3/uL 1.2-3.8[address] HospitalLymphocytes/100 WBC Auto (Bld)on 50-54-2150Eogkfbdboxq/100 WBC (Bld)37.1 %20.5-60.0[facility] HospitalH Auto (RBC) [Entitic mass]on 32-76-8012TQS (RBC) [Entitic mass]32.4 pg 25.9-34.0[address] HospitalMCHC Auto (RBC) [Mass/Vol]on 31-64-8393QMNP (RBC) [Mass/Vol]33.3 g/dL29.9-35.2FAkron Children's HospitalMCV Auto (RBC) [Entitic vol]on 00-71-4033XLF (RBC) [Entitic vol]97.3 fL 80.0-94.0[address] HospitalMonocytes Auto (Bld) [#/Vol]on 88-70-0051Vwfchqzfj (Bld) [#/Vol]0.8 10 3/uL0.3-0.8[address] HospitalMonocytes/100 WBC Auto (Bld)on 10-56-4752Qeizhluef/100 WBC (Bld)14.6 % 1.7-12.0[address] HospitalNeutrophils Auto (Bld) [#/Vol]on 78-23-8202Xdphhdaxtnh (Bld) [#/Vol]2.4 10 3/uL1.4-6.5FAkron Children's HospitalNeutrophils/100 WBC Auto (Bld)on 75-36-3855Ohqgmnnhyyl/100 WBC (Bld)43.8 % 43.0-75.0[facility] [address] HospitalNo Panel Informationon 06-29-2023 Eosinophils # (Auto)0.2 10 3/uL0.0-0.7FAkron Children's HospitalImmature Granulocyte # (Auto)0.01 10 3/uL0.00-0.03[facility] Prostate Specific Antigen Screen0.98 ng/mL<=4.00[address] HospitalPlatelet mean volume Auto (Bld) [Entitic vol]on 88-44-9255Jfnjjsfc mean volume (Bld) [Entitic vol]9.6 fL9.5-13.5FAkron Children's Hospital Platelets Auto (Bld) [#/Vol]on 18-00-1074Dldlqygtk (Bld) [#/Vol]330 10 3/uL 150-450[address] HospitalRBC Auto (Bld) [#/Vol]on 79-61-2060MSQ (Bld) [#/Vol]4.11 10 6/uL4.70-6.10[facility] Hospitalerum or plasma albumin/globulin mass ratioon 99-45-1220Fknrotp/Globulin [Mass ratio]1.1 {ratio}[facility] Hospitalerum or plasma anion gap determination on 45-58-0842Fnuzv gap [Moles/Vol]17.4 mmol/LFAkron Children's Hospital Serum or plasma total cholesterol/high density lipoprotein (HDL) cholesterol mass mina 23-75-0488Gfjhmnntkuc.total/Cholesterol in HDL [Mass ratio]4.6 {ratio}[address] HospitalComment on above:3.3 - 4.4 LOW RISK4.4 - 7.1 AVERAGE RISK7.1 - 11.0 MODERATE RISK>11.0 HIGH RISKCBC AUTO DIFFon 83-18-4363AYXK #0.0 103/ulNormal0.0-0.1The [facility] HospitalComment on above: Performed By: #### CBC #### [facility] [address] [address] [address] Sherman Mosessophils/100 WBC (Bld)0.6 %Normal0.2-2.0[facility] Comment on above:Performed By: #### CBC #### [facility] [address] [place] [address] Dr. Sherman Cevallos #0.2 103/ulNormal0.0-0.7The [facility] HospitalComment on above: Performed By: #### CBC #### [facility] [address] [place] [address] Dr. Sherman Romeroosinophils/100 WBC (Bld)3.4 %Normal0.9-7.0[facility] Comment on above:Performed By: #### CBC #### [facility] [address] [place] [address] Dr. Sherman Romerorythrocyte distribution width (RBC) [Ratio]12.9 %Jbxfbg00.0-15.0 [facility] HospitalComment on above:Performed By: #### CBC #### [facility] [address] [place] [address] Dr. Sherman SantosHematocrit (Bld) [Volume fraction]42.3 %Qcvizt87.0-54.0The [facility] HospitalComment on above:Performed By: #### CBC #### [facility] [address] [place] [address] Dr. Sherman SantosHemoglobin (Bld) [Mass/Vol]14.1 g/tUCaibpk60.0-18.0The [facility] HospitalComment on above:Performed By: #### CBC #### [facility] [address] [place] [address] Dr. Sherman Toledo #0.02 10e3/ulNormal0.00-0.03The Shelby Memorial HospitalComment on above:Performed By: #### CBC #### [facility] [address] [place] [address] Dr. Sherman Toledo %0.4 %Normal0.0-0.5The [facility] HospitalComment on above: Performed By: #### CBC #### [facility] [address] [place] [address] Dr. Sherman Yeager #1.8 103/ulNormal1.2-3.8The [facility] HospitalComment on above:Performed By: #### CBC #### [facility] [address] [place] [address] Dr. Sherman Hernandezhocytes/100 WBC (Bld)35.9 %Rrfjza31.5-60.0The [facility] HospitalComment on above:Performed By: #### CBC #### [facility] [address] [address] [address] Sherman Meraz DIFF REQNONormalThe [facility] HospitalComment on above: Performed By: #### CBC #### [facility] [address] [place] [address] Dr. Sherman House (RBC) [Entitic mass]32.2 teUzgwsa98.9-34.0The [facility] HospitalComment on above:Performed By: #### CBC #### [facility] [address] [place] [address] Dr. Sherman Mckenzie (RBC) [Mass/Vol]33.3 g/eANzjxrj24.9-35.2The [facility] HospitalComment on above:Performed By: #### CBC #### [facility] [address] [place] [address] Dr. Sherman Mckenzie (RBC) [Entitic vol]96.6 fLCritically high80.0-94.0The [facility] HospitalComment on above:Performed By: #### CBC #### [facility] [address] [place] [address] Dr. Sherman Freeman #1.0 103/ulCritically high0.3-0.8The [facility] Comment on above:Performed By: #### CBC #### [facility] [address] [place] [address] Dr. Sherman Pradhanocytes/100 WBC (Bld)19.1 %Critically high1.7-12.0The [facility] HospitalComment on above:Performed By: #### CBC #### [facility] [address] [place], [place] [id number] Dr. Sherman Buck #2.0 103/ulNormal1.4-6.5The [facility] HospitalComment on above:Performed By: #### CBC #### [facility] [address] [place] [address] Dr. Sherman Crawleyutrophils/100 WBC (Bld)40.6 %Critically low43.0-75.0The [facility] HospitalComment on above:Performed By: #### CBC #### [facility] [address] [place] [address] Dr. Sherman SantosPlatelet mean volume (Bld) [Entitic vol]9.5 fLNormal9.5-13.5The [facility] HospitalComment on above:Performed By: #### CBC #### [facility] [address] [place] [address] Dr. Sherman SantosPLT348 103/uzAkgnny775-367Djo [facility] HospitalComment on above: Performed By: #### CBC #### [facility] [address] [place] [address] Dr. Sherman SantosRBC4.38 106/ulCritically low4.70-6.10The [facility] HospitalComhenry [facility] hospital on above:Performed By: #### CBC #### [facility] [address] [place] [address] Dr. Sherman SantosWBC5.0 103/ulNormal4.0-11.0The [facility] HospitalComhenry ford hospital on above: Performed By: #### CBC #### [facility] [address] [place] [address] Dr. Sherman SantosLIPID PROFILEon [id number]-HDL RATIO NORMSEE [facility] HospitalComhen[facility] on above:Result Comment: 3.3 - 4.4 LOW RISK 4.4 - 7.1 AVERAGE RISK 7.1 - 11.0 MODERATE RISK >11.0 HIGH RISKPerformed By: #### PSASC #### [facility] [address] [place] [address] Dr. Sherman SantosCholesterol [Mass/Vol]271 mg/dLCritically high<=200The [facility] on above:Performed By: #### PSASC #### [facility] [address] [address] [address] Sherman SantosCholesterol in HDL [Mass/Vol]47 mg/uWHrkksu29-79Rsz [facility] on above:Performed By: #### PSASC #### [facility] [address] [address] [address] Sherman SantosCholesterol in LDL [Mass/Vol]185.6 mg/dLCleveland Clinic South Pointe HospitalComhenry ford hospital on above:Performed By: #### PSASC #### [facility] [address] [place] [address] Dr. Sherman Gallagher.total/Cholesterol in HDL [Mass ratio]5.8 {ratio} NormalThe [facility] on above:Performed By: #### PSASC #### [facility] [address] [place] [address] Dr. Sherman Rees NORMAL> or = 60 mg/dl - LOW CARDIOVASCULAR RISK <40 mg/dl - HIGH CARDIOVASCULAR RISKCleveland Clinic South Pointe HospitalComhenry ford hospital on above:Performed By: #### PSASC #### [facility] [address] [place] [address] Dr. Sherman Smith CALC NORMALSEE BELOWCleveland Clinic South Pointe HospitalComhenry ford hospital on above:Result Comment: <100 mg/dl OPTIMAL 100 - 129 mg/dl NEAR OR ABOVE OPTIMAL 130 - 159 mg/dl BORDERLINE HIGH 160 - 189 mg/dl HIGH >190 mg/dl VERY HIGH Performed By: #### PSASC #### [facility] [address] [place] [address] Dr. Sherman SantosTriglyceride [Mass/Vol]192 mg/dLCritically high<=150The [facility] on above:Performed By: #### PSASC #### [facility] [address] [place] [address] Dr. Sherman PaniaguaLDL CALC38.4 mg/dLCleveland Clinic South Pointe HospitalComhenry ford hospital on above: Performed By: #### PSASC #### [facility] [address] [address] [address] Sherman AgarwalF 14(COMP METB)on 56-57-5724Ypngiee [Mass/Vol]4.2 g/dLNormal 3.4-5.0The [facility] HospitalComment on above:Performed By: #### OSMO #### [facility] [address] [place] [address] Dr. Sherman SantosAlbumin/Globulin [Mass ratio]1.1 {ratio}NormalThe [facility] HospitalComment on above:Performed By: #### OSMO #### [facility] [address] [place] [address] Dr. Sherman Lyons [Catalytic activity/Vol]92 U/VVrqsvq81-648Mej [facility] HospitalComment on above:Performed By: #### OSMO #### [facility] [address] [place] [address] Dr. Sherman Dee [Catalytic activity/Vol]40 U/UBsnzrs40-11Eax [facility] HospitalComment on above:Performed By: #### OSMO #### [facility] [address] [place] [address] Dr. Sherman Cano gap [Moles/Vol]10.5 mmol/LNormalThe [facility] Comment on above:Performed By: #### OSMO #### [facility] [address] [place] [address] Dr. Sherman SantosAST [Catalytic activity/Vol]30 U/FKaiidl66-15Sdc [facility] HospitalComment on above:Performed By: #### OSMO #### [facility] [address] [place] [address] Dr. Sherman SantosBilirubin [Mass/Vol]0.7 mg/dLNormal0.2-1.0The [facility] Comment on above:Performed By: #### OSMO #### [facility] [address] [place] [address] Dr. Sherman SantosCalcium [Mass/Vol]9.6 mg/dLNormal8.5-10.1The [facility] Comment on above:Performed By: #### OSMO #### [facility] [address] [address] [address] Sherman SantosChloride [Moles/Vol]98 mmol/EDhwyky52-644Izx [facility] Comment on above:Performed By: #### OSMO #### [facility] [address] [address] [address] Sherman SantosCO2 [Moles/Vol]29.0 mmol/QSnhpqd32.0-32.0The [facility] Comment on above:Performed By: #### OSMO #### [facility] [address] [address] [address] Sherman SantosCreatinine [Mass/Vol]0.88 mg/dLNormal0.70-1.30The [facility] HospitalComment on above:Performed By: #### OSMO #### [facility] [address] [address] [address] Whitaker ChangEGFR-AF GERMAN>60Normal>=60The [facility] HospitalComment on above:Performed By: #### OSMO #### [facility] [address] [address] [address] Sherman RomeroGFR-NON AF GERMAN>60Normal>=60The [facility] HospitalComment on above:Performed By: #### OSMO #### [facility] [address] [address] [address] Sherman SantosGlobulin (S) [Mass/Vol]3.7 g/dLNormalThe [facility] HospitalComment on above:Performed By: #### OSMO #### [facility] [address] [address] [address] Sherman SantosGlucose [Mass/Vol]94 mg/uHZckiih28-595Jbu [facility] Comment on above:Performed By: #### OSMO #### [facility] [address] [address] [address] Sherman SantosPotassium [Moles/Vol]4.5 mmol/LNormal3.5-5.1The [facility] Comment on above:Performed By: #### OSMO #### [facility] [address] [address] [address] Sherman SantosProtein [Mass/Vol]7.9 g/dLNormal6.4-8.2The [facility] Comment on above:Performed By: #### OSMO #### [facility] [address] [place] [address] Dr. Sherman SantosSodium [Moles/Vol]133 mmol/LCritically nbp391-202Bxe [facility] HospitalComment on above:Performed By: #### OSMO #### [facility] [address] [place] [address] Dr. Sherman SantosUrea nitrogen [Mass/Vol]8.0 mg/dLNormal7.0-18.0The [facility] HospitalComment on above:Performed By: #### OSMO #### [facility] [address] [place] [address] Dr. Sherman Molina nitrogen/Creatinine [Mass ratio]9.1 mg/mgNormalThe [facility] HospitalComment on above:Performed By: #### OSMO #### [facility] [address] [place] [address] Dr. Sherman SantosT4on [id number] [Mass/Vol]6.50 ug/dLNormal4.50-12.10The [facility] HospitalComment on above:Performed By: #### OSMO #### [facility] [address] [place] [address] Dr. Sherman AcuñaHomadina 14-00-3688TKK5.780 uIU/mLNormal0.358-3.740The [facility] HospitalComment on above:Performed By: #### PSASC #### [facility] [address] [place] [address] Dr. Sherman SantosAMMONIAon 55-30-8528Ktiyntw (P) [Moles/Vol]24 umol/PSgzkqv15-55 The [facility] HospitalComment on above:Performed By: #### PSASC #### [facility] [address] [place] [address] Dr. Sherman MendezC AUTO DIFFon [id number] #0.1 103/ulNormal0.0-0.1The [facility] HospitalComment on above:Performed By: #### CBC #### [facility] [address] [address] [address] Sherman SantosBasophils/100 WBC (Bld)0.7 %Normal0.2-2.0The [facility] Comment on above:Performed By: #### CBC #### [facility] [address] [address] [address] Sherman Cevallos #0.2 103/ulNormal0.0-0.7The [facility] HospitalComment on above: Performed By: #### CBC #### [facility] [address] [place] [address] Dr. Sherman Romeroosinophils/100 WBC (Bld)2.7 %Normal0.9-7.0The [facility] Comment on above:Performed By: #### CBC #### [facility] [address] [place] [address] Dr. Sherman Romerorythrocyte distribution width (RBC) [Ratio]12.1 %Oeyhrd33.0-15.0 The [facility] HospitalComment on above:Performed By: #### CBC #### [facility] [address] [place] [address] Dr. Sherman SantosHematocrit (Bld) [Volume fraction]36.0 %Critically low42.0-54.0 The [facility] HospitalComment on above:Performed By: #### CBC #### [facility] [address] [place] [address] Dr. Sherman SantosHemoglobin (Bld) [Mass/Vol]12.6 g/dLCritically low14.0-18.0The [facility] HospitalComment on above:Performed By: #### CBC #### [facility] [address] [place] [address] Dr. Sherman Toledo #0.02 10e3/ulNormal0.00-0.03The [facility] HospitalComment on above:Performed By: #### CBC #### [facility] [address] [address] [address] Sherman Toledo %0.3 %Normal0.0-0.5The [facility] on above: Performed By: #### CBC #### [facility] [address] [place] [address] Dr. Sherman Yeager #2.7 103/ulNormal1.2-3.8The [facility] HospitalComhenry [facility] hospital on above:Performed By: #### CBC #### [facility] [address] [place] [address] Dr. Sherman Hernandezhocytes/100 WBC (Bld)39.4 %Qtybnc95.5-60.0The [facility] on above:Performed By: #### CBC #### [facility] [address] [place] [address] Dr. Sherman MoUAL DIFF REQNONormalThe [facility] HospitalComment on above: Performed By: #### CBC #### [facility] [address] [place] [address] Dr. Sherman Mckenzie (RBC) [Entitic mass]32.1 qwGeivqz52.9-34.0The [facility] on above:Performed By: #### CBC #### [facility] [address] [place] [address] Dr. Sherman Mckenzie (RBC) [Mass/Vol]35.0 g/fAGiicfj98.9-35.2The [facility] on above:Performed By: #### CBC #### [facility] [address] [place] [address] Dr. Sherman Mckenzie (RBC) [Entitic vol]91.8 yNUkqebv69.0-94.0The [facility] on above:Performed By: #### CBC #### [facility] [address] [place] [address] Dr. Sherman Freeman #0.8 103/ulNormal0.3-0.8The [facility] Daytonment on above:Performed By: #### CBC #### [facility] [address] [address] [address] Sherman Pradhanocytes/100 WBC (Bld)11.8 %Normal1.7-12.0The [facility] Comment on above:Performed By: #### CBC #### [facility] [address] [address] [address] Sherman CrawleyUT #3.1 103/ulNormal1.4-6.5The [facility] HospitalComment on above:Performed By: #### CBC #### [facility] [address] [address] [address] Sherman Crawleyutrophils/100 WBC (Bld)45.1 %Qhykez47.0-75.0The [facility] HospitalComment on above:Performed By: #### CBC #### [facility] [address] [place] [address] Dr. Sherman SantosPlatelet mean volume (Bld) [Entitic vol]8.5 fLCritically low 9.5-13.5The [facility] HospitalComment on above:Performed By: #### CBC #### [facility] [address] [address] [address] Sherman SantosPLT292 103/ffQupblz349-606Sdw [facility] HospitalComment on above: Performed By: #### CBC #### [facility] [address] [place] [address] Dr. Sherman SantosRBC3.92 106/ulCritically low4.70-6.10The [facility] HospitalComment on above:Performed By: #### CBC #### [facility] [address] [place] [address] Dr. Sherman SantosWBC7.0 103/ulNormal4.0-11.0The [facility] HospitalComment on above: Performed By: #### CBC #### [facility] [address] [place] [address] Dr. Sherman SantosCT STROKE HEAD WOon [id number] STROKE HEAD WOEXAMINATION: CT STROKE HEAD WO HISTORY: Altered mental status COMPARISON: [...] Electronically authenticated by: HAWA SULLIVAN Date: 2022-03-02 18:10[facility] URINE PROFILEon 30-93-8604Wdxnszwxw Ql (U)NegativeNormal NEGATIVETrihealth Bethesda North HospitalComment on above:Performed By: #### ERUR #### [facility] [address] [place] [address] Dr. Sherman SantosClarity (U)CLEARNormalCLEARTrihealth Bethesda North HospitalComment on above: Performed By: #### ERUR #### [facility] [address] [place] [address] Dr. Sherman Liao (U)LT. YELLOWNormalYELLOWTrihealth Bethesda North HospitalComment on above:Performed By: #### ERUR #### [facility] [address] [place] [address] Dr. Sherman Reyes micrscopic examination will be performed if indicated. NormalTrihealth Bethesda North HospitalComment on above:Performed By: #### ERUR #### [facility] [address] [place] [address] Dr. Sherman SantosGlucose Ql (U)NegativeNormalNEGATIVETrihealth Bethesda North HospitalComment on above:Performed By: #### ERUR #### [facility] [address] [place] [address] Dr. Sherman SantosHemoglobin Ql (U)NegativeNormalNEGATIVEKindred Hospital Lima on above:Performed By: #### ERUR #### [facility] [address] [place] [address] Dr. Sherman SantosKetones Ql (U)NegativeNormalNEGATIVETrihealth Bethesda North HospitalComment on above:Performed By: #### ERUR #### [facility] [address] [place] [address] Dr. Sherman SantosLEUKOCYTESNegativeNormalNEGATIVETrihealth Bethesda North HospitalComment on above:Performed By: #### ERUR #### [facility] [address] [place] [address] Dr. Sherman SantosNitrite Ql (U)NegativeNormalNEGATIVEThe [facility] HospitalComment on above:Performed By: #### ERUR #### [facility] [address] [place] [address] Dr. Sherman SantospH (U)6.0 [pH]Normal5-9The [facility] HospitalComment on above: Performed By: #### ERUR #### [facility] [address] [place] [address] Dr. Sherman SantosSPEC GRAVITY<=1.075Rselvuzg9.005-<=1.025[facility] Comment on above:Performed By: #### ERUR #### [facility] [address] [place] [address] Dr. Sherman Simons PROTEINNegativeNormalNEGATIVE/ TRACEThe [facility] Comment on above:Performed By: #### ERUR #### [facility] [address] [place] [address] Dr. Sherman Haque MICRO INDNOT INDICATEDNoalThBluffton HospitalComment on above:Performed By: #### ERUR #### [facility] [address] [place] [address] Dr. Sherman Rosalesbilinogen Qn (U)0.2 {Norris'U}/dLNormal0.2 - 1.0Tri[facility]hes[facility] North HospitalComment on above:Performed By: #### ERUR #### [facility] [address] [place] [address] Dr. Sherman SantosMRI BRAIN WO W CONon [id number] BRAIN WO W CONEXAMINATION: MRI BRAIN WO W CON HISTORY: Amnesia COMPARISON: No [...] Electronically authenticated by: CARLOS HOLLOWAY Date: 2022-03-02 09:11[facility] HospitalPROF 14(COMP METB)on [id number] [Mass/Vol]3.9 g/dLNormal 3.4-5.0The [facility] HospitalComment on above:Performed By: #### OSMO #### [facility] [address] [place] [address] Dr. Sherman SantosAlbumin/Globulin [Mass ratio]1.1 {ratio}NormalThe [facility] HospitalComment on above:Performed By: #### OSMO #### [facility] [address] [place] [address] Dr. Sherman Lyons [Catalytic activity/Vol]79 U/OUzxtlf28-103Law [facility] HospitalComment on above:Performed By: #### OSMO #### [facility] [address] [place] [address] Dr. Sherman Dee [Catalytic activity/Vol]35 U/FZubvor58-39Lbg [facility] HospitalComment on above:Performed By: #### OSMO #### [facility] [address] [place] [address] Dr. Sherman Cano gap [Moles/Vol]12.6 mmol/LNormalThe [facility] Comment on above:Performed By: #### OSMO #### [facility] [address] [place] [address] Dr. Yilan ChangAST [Catalytic activity/Vol]25 U/RCejmur22-94Lsm [facility] HospitalComment on above:Performed By: #### OSMO #### [facility] [address] [place] [address] Dr. Sherman SantosBilirubin [Mass/Vol]0.3 mg/dLNormal0.2-1.0The [facility] Comment on above:Performed By: #### OSMO #### [facility] [address] [place] [address] Dr. Sherman SantosCalcium [Mass/Vol]8.9 mg/dLNormal8.5-10.1The [facility] Comment on above:Performed By: #### OSMO #### [facility] [address] [place] [address] Dr. Sherman SantosChloride [Moles/Vol]97 mmol/LCritically jkc55-180Pgf [facility] HospitalComment on above:Performed By: #### OSMO #### [facility] [address] [place] [address] Dr. Sherman SantosCO2 [Moles/Vol]23.2 mmol/LXgmosi54.0-32.0The [facility] Comment on above:Performed By: #### OSMO #### [facility] [address] [place] [address] Dr. Sherman SantosCreatinine [Mass/Vol]0.82 mg/dLNormal0.70-1.30The [facility] HospitalComment on above:Performed By: #### OSMO #### [facility] [address] [place] [address] Dr. Sherman RomeroGFR-AF GERMAN>60Normal>=60The [facility] HospitalComment on above:Performed By: #### OSMO #### [facility] [address] [place] [address] Dr. Sherman RomeroGFR-NON AF GERMAN>60Normal>=60The [facility] HospitalComment on above:Performed By: #### OSMO #### [facility] [address] [place] [address] Dr. Sherman SantosGlobulin (S) [Mass/Vol]3.6 g/dLNormUniversity Hospitals St. John Medical CenterComment on above:Performed By: #### OSMO #### [facility] [address] [place] [address] Dr. Sherman SantosGlucose [Mass/Vol]80 mg/eNMgmnew98-050Onq [facility] Comment on above:Performed By: #### OSMO #### [facility] [address] [address] [address] Sherman SantosPotassium [Moles/Vol]3.8 mmol/LNormal3.5-5.1The [facility] Comment on above:Performed By: #### OSMO #### [facility] [address] [place] [address] Dr. Sherman SantosProtein [Mass/Vol]7.5 g/dLNormal6.4-8.2The [facility] Comment on above:Performed By: #### OSMO #### [facility] [address] [place] [address] Dr. Sherman SantosSodium [Moles/Vol]129 mmol/LCritically vtc443-939Xkj [facility] HospitalComment on above:Performed By: #### OSMO #### [facility] [address] [place] [address] Dr. Sherman SantosUrea nitrogen [Mass/Vol]9.0 mg/dLNormal7.0-18.0The [facility] HospitalComment on above:Performed By: #### OSMO #### [facility] [address] [place] [address] Dr. Sherman SantosUrea nitrogen/Creatinine [Mass ratio]11.0 mg/mgNormUniversity Hospitals St. John Medical CenterComment on above:Performed By: #### OSMO #### [facility] [address] [place] [address] Dr. Sherman SantosPROF CHEM 8 (BAS METB)on 76-89-4209Snllp gap [Moles/Vol]8.4 mmol/LNormalThe [facility] HospitalComment on above:Performed By: #### BMP #### [facility] [address] [address] [address] Sherman SantosCalcium [Mass/Vol]9.4 mg/dLNormal8.5-10.1The [facility] Comment on above:Performed By: #### BMP #### [facility] [address] [address] [address] Shreman SantosChloride [Moles/Vol]99 mmol/FBbilzk22-927Pdq [facility] Comment on above:Performed By: #### BMP #### [facility] [address] [address] [address] Sherman SantosCO2 [Moles/Vol]32.0 mmol/APvfsda92.0-32.0The [facility] Comment on above:Performed By: #### BMP #### [facility] [address] [place] [address] Dr. Sherman SantosCreatinine [Mass/Vol]0.97 mg/dLNormal0.70-1.30The [facility] HospitalComment on above:Performed By: #### BMP #### [facility] [address] [address] [address] Whitaker ChangEGFR-AF GERMAN>60Normal>=60The [facility] HospitalComment on above:Performed By: #### BMP #### [facility] [address] [place] [address] Dr. Sherman RomeroGFR-NON AF GERMAN>60Normal>=60The [facility] HospitalComment on above:Performed By: #### BMP #### [facility] [address] [address] [address] Sherman SantosGlucose [Mass/Vol]138 mg/dLCritically irxg49-147Lky [facility] HospitalComment on above:Performed By: #### BMP #### [facility] [address] [address] [address] Sherman SantosPotassium [Moles/Vol]4.4 mmol/LNormal3.5-5.1The [facility] Comment on above:Performed By: #### BMP #### [facility] [address] [place] [address] Dr. Sherman Adamsum [Moles/Vol]135 mmol/LCritically upm707-392Kdi [facility] HospitalComment on above:Performed By: #### BMP #### [facility] [address] [place] [address] Dr. Sherman Molina nitrogen [Mass/Vol]13.0 mg/dLNormal7.0-18.0[facility] North HospitalComment on above:Performed By: #### BMP #### [facility] [address] [place] [address] Dr. Sherman Molina nitrogen/Creatinine [Mass ratio]13.4 mg/mgNoSelect Medical OhioHealth Rehabilitation HospitalComment on above:Performed By: #### BMP #### [facility] [address] [place] [address] Dr. Sherman SantosPROTIMEon 33-62-2724UGP Coag (PPP) [Relative time]0.98 {INR} NormalThe [facility] HospitalComment on above:Performed By: #### PSASC #### [facility] [address] [place] [address] Dr. Sherman Osei GUIDELINESSEE BELOWCleveland Clinic South Pointe HospitalComment on above:Result Comment: DESIRED INR: 2.0 - 3.0 CONDITIONS NOT LISTED BELOW 2.5 - 3.5 FOR PROSTHETIC HEART VALVE REPLACEMENT 2.5 - 3.5 RECURRENT THROMBOSIS Performed By: #### PSASC #### [facility] [address] [place] [address] Dr. Sherman Alanis Coag (PPP) [Time]10.6 sNormal9.0-11.6The [facility] Comment on above:Performed By: #### PSASC #### [facility] [address] [place] [address] Dr. Sherman Hernandez 72-99-1471eKOH Coag (Bld) [Time]30.2 iIbkzzk04.3-36.2[facility] North HospitalComment on above:Performed By: #### PSASC #### [facility] [address] [place] [address] Dr. Sherman Womack, HIGH SENSITIVITYon 83-48-3928OMBZJK64.4 pg/mLNormal 4.0-76.1The [facility]tering Health Daytonment on above:Result Comment: CUT-OFF POINTS HAVE BEEN ESTABLISHED BASED ON THE FOURTH UNIVERSAL DEFINITIONS OF MYOCARDIAL INFARCTION. THE UPPER REFERENCE LIMIT (URL) OF TROPONIN, DEFINED THE 99TH PERCENTILE OF cTnI DISTRIBUTION IN A REFERENCE POPULATION, HAS BEEN CONFIRMED THE DECISION THRESHOLD FOR [place] DIAGNOSIS.Performed By: #### OSMO #### [facility] [address] [place] [address] Dr. Sherman Benavides 29-84-7450FUG2.556 uIU/mLNormal0.358-3.740The [facility] HospitalComment on above:Performed By: #### OSMO #### [facility] [address] [place] [address] Dr. Sherman SantosXR CHEST 1 Von 37-03-8414FP CHEST 1 VEXAMINATION: XR CHEST 1 V, , 03/02/2022 5:36 PM EST INDICATION: Altered mental status HISTORY: Ordering Provider Reason for Exam: Technologist Note: Additional: COMPARISON: None. TECHNIQUE: Chest x-ray: One view. FINDINGS: No pneumothorax, pleural effusion or focal airspace consolidation. Heart is normal in size. Bony thorax is unremarkable. IMPRESSION: No acute cardiopulmonary process. Electronically authenticated by: SOPHIA AMBRIZ Date: 2022-03-02 18:40NoSelect Medical OhioHealth Rehabilitation HospitalXR FOREIGN BODY EYEon 41-80-7421NM FOREIGN BODY EYEEXAM: XR FOREIGN BODY EYE HISTORY: Foreign body in eye COMPARISON: [...] Electronically authenticated by: BAL OVERTON Date: 2022-03-02 07:55NoSelect Medical OhioHealth Rehabilitation HospitalOSMOLALITYon 71-22-7664Ifryvrldft [Osmolality]284 mosm/kgNormal 280-301The [facility] HospitalComment on above:Performed By: #### OSMO #### [facility] [address] [place] [address] Dr. Sherman SantosOSMOLALITY URINEon 69-48-4345Sgsvkmoymv, Oasib588 mOsmol/kgNormal [facility] North HospitalComment on above:Result Comment: 24 hr : 300 - 900 Random: 50 - 1400 After 12hr fluid restriction: >850Performed By: #### OSMO #### [facility] [address] [place] [address] Dr. Sherman SantosCBC AUTO DIFFon 24-95-9129RHTJ #0.0 103/ulNormal0.0-0.1The [facility] HospitalComment on above:Performed By: #### TSH, URIC, CMP #### [facility] [address] [place] [address] Dr. Sherman SantosBasophils/100 WBC (Bld)0.4 %Normal0.2-2.0The [facility] Comment on above:Performed By: #### TSH, URIC, CMP #### [facility] [address] [place] [address] Dr. Sherman Cevallos #0.2 103/ulNormal0.0-0.7The [facility] HospitalComment on above: Performed By: #### TSH, URIC, CMP #### [facility] [address] [place] [address] Dr. Sherman Romeroosinophils/100 WBC (Bld)4.0 %Normal0.9-7.0The [facility] Comment on above:Performed By: #### TSH, URIC, CMP #### [facility] [address] [place] [address] Dr. Sherman Romerorythrocyte distribution width (RBC) [Ratio]12.6 %Eaqvqv97.0-15.0 [facility] North HospitalComment on above:Performed By: #### TSH, URIC, CMP #### [facility] [address] [place] [address] Dr. Sherman SantosHematocrit (Bld) [Volume fraction]43.7 %Gmfzvb68.0-54.0The [facility] HospitalComment on above:Performed By: #### TSH, URIC, CMP #### [facility] [address] [place] [address] Dr. Sherman SantosHemoglobin (Bld) [Mass/Vol]14.7 g/tZTkqvux45.0-18.0The [facility] HospitalComment on above:Performed By: #### TSH, URIC, CMP #### [facility] [address] [place] [address] Dr. Sherman Toledo #0.01 10e3/ulNormal0.00-0.03The [facility] HospitalComment on above:Performed By: #### TSH, URIC, CMP #### [facility] [address] [place] [address] Dr. Sherman Toledo %0.2 %Normal0.0-0.5The [facility] HospitalComment on above: Performed By: #### TSH, URIC, CMP #### [facility] [address] [place] [address] Dr. Sherman Yeager #1.5 103/ulNormal1.2-3.8The [facility] HospitalComment on above:Performed By: #### TSH, URIC, CMP #### [facility] [address] [place] [address] Dr. Sherman Hernandezhocytes/100 WBC (Bld)30.5 %Clfjhr74.5-60.0The [facility] on above:Performed By: #### TSH, URIC, CMP #### [facility] [address] [place] [address] Dr. Sherman MoUAL DIFF REQNONormalThe [facility] HospitalComment on above: Performed By: #### TSH, URIC, CMP #### [facility] [address] [place] [address] Dr. Sherman House (RBC) [Entitic mass]32.5 qiFhkerw16.9-34.0The [facility] HospitalComment on above:Performed By: #### TSH, URIC, CMP #### [facility] [address] [place] [address] Dr. Sherman Mckenzie (RBC) [Mass/Vol]33.6 g/jHPoxxnv15.9-35.2The [facility] HospitalComment on above:Performed By: #### TSH, URIC, CMP #### [facility] [address] [address] [address] Sherman Mckenzie (RBC) [Entitic vol]96.7 fLCritically high80.0-94.0The [facility] HospitalComment on above:Performed By: #### TSH, URIC, CMP #### [facility] [address] [address] [address] Sherman Freeman #0.9 103/ulCritically high0.3-0.8The [facility] Comment on above:Performed By: #### TSH, URIC, CMP #### [facility] [address] [place] [address] Dr. Sherman Pradhanocytes/100 WBC (Bld)18.0 %Critically high1.7-12.0The [facility] HospitalComment on above:Performed By: #### TSH, URIC, CMP #### [facility] [address] [address] [address] Sherman Buck #2.4 103/ulNormal1.4-6.5The [facility] HospitalComment on above:Performed By: #### TSH, URIC, CMP #### [facility] [address] [address] [address] Sherman Crawleyutrophils/100 WBC (Bld)46.9 %Yjskeq61.0-75.0The [facility] HospitalComment on above:Performed By: #### TSH, URIC, CMP #### [facility] [address] [address] [address] Sherman Izquierdolet mean volume (Bld) [Entitic vol]9.0 fLCritically low 9.5-13.5The [facility] HospitalComment on above:Performed By: #### TSH, URIC, CMP #### [facility] [address] [place] [address] Dr. Sherman LlanosT289 103/ygZpeyev900-200LnqMercy Health Defiance Hospitalment on above: Performed By: #### TSH, URIC, CMP #### [facility] [address] [address] [address] Sherman SantosRBC4.52 106/ulCritically low4.70-6.10The [facility] HospitalComhenry ford hospital on above:Performed By: #### TSH, URIC, CMP #### [facility] [address] [address] [address] Sherman SantosWBC5.0 103/ulNormal4.0-11.0The [facility] HospitalComhenry ford hospital on above: Performed By: #### TSH, URIC, CMP #### [facility] [address] [place] [address] Dr. Sherman SantosCT LUNG CANCER SCREENINGon 99-32-1985XG LUNG CANCER SCREENING EXAMINATION: CT LUNG CANCER [...] Electronically authenticated by: CARLOS HOLLOWAY Date: 2022-01-12 19:43NoSelect Medical OhioHealth Rehabilitation HospitalPROF 14(COMP METB)on 36-03-3510Lygfpzr [Mass/Vol]4.1 g/dLNormal 3.4-5.0The [facility] HospitalComment on above:Performed By: #### TSH, URIC, CMP #### [facility] [address] [place] [address] Dr. Sherman SantosAlbumin/Globulin [Mass ratio]1.1 {ratio}NormalThe [facility] HospitalComment on above:Performed By: #### TSH, URIC, CMP #### [facility] [address] [place] [address] Dr. Sherman Lyons [Catalytic activity/Vol]88 U/ZNeasvj85-196Fna [facility] HospitalComment on above:Performed By: #### TSH, URIC, CMP #### [facility] [address] [place] [address] Dr. Sherman Dee [Catalytic activity/Vol]42 U/DWoqlrq60-35Kdo [facility] HospitalComment on above:Performed By: #### TSH, URIC, CMP #### [facility] [address] [place] [address] Dr. Sherman Cano gap [Moles/Vol]9.5 mmol/LNormalThe [facility] HospitalComment on above:Performed By: #### TSH, URIC, CMP #### [facility] [address] [place] [address] Dr. Sherman Vogel [Catalytic activity/Vol]29 U/ZVaemxo56-88Vrz [facility] HospitalComment on above:Performed By: #### TSH, URIC, CMP #### [facility] [address] [place] [address] Dr. Sherman SantosBilirubin [Mass/Vol]0.4 mg/dLNormal0.2-1.0The [facility] Comment on above:Performed By: #### TSH, URIC, CMP #### [facility] [address] [place] [address] Dr. Sherman SantosCalcium [Mass/Vol]9.4 mg/dLNormal8.5-10.1The [facility] Comment on above:Performed By: #### TSH, URIC, CMP #### [facility] [address] [place], [place] [id number] Dr. Sherman SantosChloride [Moles/Vol]101 mmol/OSxsrzi54-087Twe [facility] Comment on above:Performed By: #### TSH, URIC, CMP #### [facility] [address] [place] [address] Dr. Sherman SantosCO2 [Moles/Vol]30.4 mmol/JQwaahq47.0-32.0The [facility] Comment on above:Performed By: #### TSH, URIC, CMP #### [facility] [address] [place] [address] Dr. Sherman SantosCreatinine [Mass/Vol]0.94 mg/dLNormal0.70-1.30The [facility] HospitalComment on above:Performed By: #### TSH, URIC, CMP #### [facility] [address] [place] [address] Dr. Whitaker ChangEGFR-AF GERMAN>60Normal>=60The [facility] HospitalComment on above:Performed By: #### TSH, URIC, CMP #### [facility] [address] [place] [address] Dr. Sherman RomeroGFR-NON AF GERMAN>60Normal>=60The [facility] HospitalComment on above:Performed By: #### TSH, URIC, CMP #### [facility] [address] [place] [address] Dr. Sherman SantosGlobulin (S) [Mass/Vol]3.9 g/dLNormalThe [facility] HospitalComment on above:Performed By: #### TSH, URIC, CMP #### [facility] [address] [place] [address] Dr. Sherman SantosGlucose [Mass/Vol]95 mg/tOYzpvct81-514Shl [facility] Comment on above:Performed By: #### TSH, URIC, CMP #### [facility] [address] [place] [address] Dr. Sherman SantosPotassium [Moles/Vol]3.9 mmol/LNormal3.5-5.1The [facility] Comment on above:Performed By: #### TSH, URIC, CMP #### [facility] [address] [address] [address] Sherman SantosProtein [Mass/Vol]8.0 g/dLNormal6.4-8.2The [facility] Comment on above:Performed By: #### TSH, URIC, CMP #### [facility] [address] [place] [address] Dr. Sherman Adamsum [Moles/Vol]137 mmol/VWwdjkz244-414Xko [facility] Comment on above:Performed By: #### TSH, URIC, CMP #### [facility] [address] [place] [address] Dr. Sherman SantosUrea nitrogen [Mass/Vol]12.0 mg/dLNormal7.0-18.0The [facility] HospitalComment on above:Performed By: #### TSH, URIC, CMP #### [facility] [address] [place] [address] Dr. Sherman Molina nitrogen/Creatinine [Mass ratio]12.8 mg/mgNormalThe [facility] HospitalComment on above:Performed By: #### TSH, URIC, CMP #### [facility] [address] [place] [address] Dr. Sherman Haynes RANDOM URINEon 70-80-7890Tszumw (U) [Moles/Vol]65 mmol/L Tksqwv04-45Ksg [facility] HospitalComment on above:Performed By: #### OSMO #### [facility] [address] [place] [address] Dr. Sherman AcuñaHomadina 17-75-1616BKY4.912 uIU/mLNormal0.358-3.740The [facility] HospitalComment on above:Performed By: #### TSH, URIC, CMP #### [facility] [address] [place] [address] Dr. Sherman SantosURIC ACID SERUMon 38-30-5419Wrbeu [Mass/Vol]5.1 mg/dLNormal 3.5-7.2The [facility] HospitalComment on above:Performed By: #### TSH, URIC, CMP #### [facility] [address] [place] [address] 25-36-5954Ksslnezfl From: Matt Stevens To: [facility] - Reminders/Recalls; Sent: 11/19/2021 10:05:02 EDT Show up: 08/26/2028 10:04:00 EDT Subject: colonoscopy reminder Due Date/Time: 09/23/2028 10:04:00 EDT Reminder/Recall 5 year colonoscopy reminder(2026)[facility] CenterCoding Summary.on 25-54-2852Ljgsqd Summary. CD:[id number]+PGhlYWQ+RO1ECUJmW65thUZziC0ZP2sPEH3PTZHDJWPGXG2EEA9jj LM8ONcnK2MjijPq [file] IGNv (more content not included)...[facility] IntraOperative Documentson 86-40-5090KjigpXzrkpkblu Documents [id number]#1.00CD:127[facility] CenterMain OR Intraoperative Recordon 51-14-4764Truv OR Intraoperative Record IntraOp Document Type FT Summary Primary Physician: Marlys LOPEZ MD Finalized Date/Time: 09/29/21 12:13:49 Pt. Name: DAI العلي/Sex: 1945 Male Med Rec #: [id number] Physician: Marlys LOPEZ MD Financial #: [id number] Pt. Type: O Room/Bed: / Admit/Disch: 09/23/21 [...] 1 Entry 2 Entry 3 Case Attendee Ryan FULLER, Sofy Hanna, Celina LOPEZ MD, Marlys Role Performed Anesthesiologist Scrub - Primary Surgeon - Primary Paint Stripper Time In 09/23/21 12:28:00 09/23/21 12:36:00 09/23/21 12:28:00 Time Out 09/23/21 12:53:00 09/23/21 12:53:00 09/23/21 12:53:00 Procedure EGD AND COLONOSCOPY(.) EGD AND COLONOSCOPY(.) EGD AND COLONOSCOPY(.) Comments Dr. Chanel supervising Colonoscopy Last Modified By: Grover RN, Mayi Ness RN, Mayi Dixon RN 09/23/21 12:53:36 09/23/21 12:53:36 09/23/21 12:53:36 Entry 4 Entry 5 Case Attendee Hesham SLOAN, Mayi See RN Role Performed Scrub - Primary Engineering Clerk - Primary Time In 09/23/21 12:28:00 09/23/21 12:28:00 Time Out 09/23/21 12:53:00 09/23/21 12:53:00 Procedure EGD AND COLONOSCOPY(.) EGD AND COLONOSCOPY(.) Comments EGD Last Modified By: Grover GIVENS, Mayi Dixon RN 09/23/21 12:53:36 09/23/21 12:53:36 Perioperative Protocols FT [...] (If Applicable) PreOp Antibiotic No Time Out Ryan FULLER, Sofy M, Given Participants Marlys LOPEZ MD, Schafer CST, Grover Shin RN, Angela Time Out [...] and tissue Entry 1 Skin Integrity Intact, [place], Warm, and Skin Abnormality No Dry Outcomes Met? Yes Last Modified By: Mayi Ness RN 06/29/22 12:33:30 Post-Care Text: The patient is free from signs and symptoms of injury caused by extraneous objects Patient Positioning FT Pre-Care Text: Identifies physical alterations that require additional preca (more content not included)...[facility] CenterProess Note-Physicianon 30-56-9754Qqorrfxm Note-PhysicianPatient: DAI العلي Age: 76 years Sex: Male : 1945 Associated Diagnoses: None Author: Michael Chanel Jr, DO Postoperative Information Post Operative Note: Post Anesthesia Care Unit. Anesthetic utilized: Monitored anesthesia care. Health Status Allergies: Allergic Reactions (Selected) No Known Allergies Problem list: All Problems Anemia / SNOMED CT 637766980 / Confirmed Essential hypertension / SNOMED CT 65687839 / Confirmed Familial hypercholesterolemia / SNOMED CT 2438841065 / Confirmed Hyponatremia / SNOMED CT 063775676 / Confirmed Lung nodules / SNOMED CT 6986319357 / Confirmed BPH associated with nocturia / SNOMED CT 9465619211 / Confirmed Current smoker / SNOMED CT 246957354 / Confirmed Physical Examination Vital Signs 09/23/2021 [...] 23 13:25) DBP 74 mmHg (SEP 23 13:25) SpO2 99 % (SEP 23 13:25) Weight 78.3 kg (SEP 23 11:47) BMI [...] nausea and vomiting. Plan Transfer/ Discharge: Condition stable.[facility] CenterComment on above:Result Comment: Electronically Signed By: Michael Chanel Jr, DO\.br\Date and Time Signed: 09/29/21 16:30 EDTProgress Note-PhysicianPatient: DAI العلي Age: 76 years Sex: Male [...] pharmacy to sent to patient's home in [place]., [facility], 180, cm, 09/03/21 13:11:00 EDT, Height/Length [...] list: All Problems Anemia / SNOMED CT 706516914 / Confirmed Essential hypertension / SNOMED CT 16864023 / Confirmed Familial hypercholesterolemia / SNOMED CT 0375754099 / Confirmed Hyponatremia / SNOMED CT 620186336 / Confirmed Lung nodules / SNOMED CT 0609471272 / Confirmed BPH associated with nocturia / SNOMED CT 3783259420 / Confirmed Current smoker / SNOMED CT 735644034 / Confirmed Histories Past Medical History: Active Hyponatremia (068413410) Lung nodules (1127263983) BPH associated with nocturia (5480530859) Current smoker (311986827) Social History Social & Psychosocial Habits Tobacco 09/03/2021 Tobacco Use: 10 or more cigarettes (1/ . Physical Examination Airway: Mallampati classification: II (soft palate, fauces, uvula visible). Respiratory: Lungs are clear to auscultation. Cardiovascular: Regular rhythm. Neurologic: Alert, Oriented. Plan [place] [employer]hesi[employer] (ASA) physical status classification: Class II. Anesthetic Preoperative Plan Anesthesia: General. . Anesthetic plan, risks, benefits, and alternatives discussed with the patient and/or family. Communication: face to face with (patient 5 minutes, Patient educated on smoking cesstation).[facility] CenterComment on above:Result Comment: Electronically Signed By: Michael Chanel Jr, DO\.ely\Date and Time Signed: 09/29/21 07:59 EDTPostoperative Documentson 09-25-2021 Postoperative [id number]#1.00CD:127 [facility] CenterConsenton 90-70-9886Pwlpfzr [id number]#1.00CD:127[facility] CenterDischarge Instructionson 05-50-8876Aakzmeatd Instructions [id number]#1.00CD:127[facility] CenterIntraOperative Documentson 66-88-5817ZvcdvGrhrtzspe Documents [id number]#1.00CD:127[facility] CenterIntraOperative Documents [id number]#1.00CD:127[facility] Medical CenterConsent for Treatmenton 58-58-9384Lumspkq for Treatment [id number]#1.00CD:127[facility] CenterEndoscopic Procedure Report - Otheron 73-31-1086Gazarinlhv Procedure Report - OtherPatient: DAI العلي Age: 76 years Sex: Male [...] Pre-procedure diagnosis: Iron deficiency anemia, unexplained. Medications Anticoagulant/antiplatelet None. ASA Classification: Class III. . Procedure [...] Moderate nonbleeding internal hemorrhoids Images Procedure images: Rec1_hd_video_2021__[id number].jpg Rec1_hd_video_2021__T11_50_38_335.jpg . Post-Procedure Complications: none. Estimated blood loss: [...] current medications. Return to activities:: After 24 hours.[facility] CenterComment on above:Result Comment: Electronically Signed By: Marlys LOPEZ MD\.br\Date and Time Signed: 09/23/21 12:52 EDTOther Comment: Missing Attachment - attachment storage system not supported [id number] Can be viewed in source systemMissing Attachment - attachment storage system not supported [id number] Can be viewed in source systemEndoscopic Procedure Report - OtherPatient: DAI العلي Age: 76 years Sex: Male : 1945 Associated Diagnoses: None Author: Marlys LOPEZ MD Pre-Procedure Procedure Date 09/23/2021 12:39:00 . Procedure Type: Esophagogastroduodenoscopy. Procedure provider Performed by Marlys Lopez MD. Current history and physical Documented on chart. Informed Consent After discussing the rationale, risks and benefits, and alternatives to this procedure, the patient provided signed consent for the procedure. Pre-procedure diagnosis: Diagnostic: Anemia. Medications Anticoagulant/antiplatelet No anticoagulation or antiplatelet. ASA Classification: Class III. . Monitoring: See anesthesia record. . Procedure The procedure was performed in the hospital. See anesthesia record for sedation given during procedure. The patient was positioned starting in the left lateral decubitus position and with safety measures. Endoscope type used was an adult- size, introduced orally, advanced to the 2nd portion [...] pylori 3. Normal duodenum Images Procedure images: Rec1_hd_video_2021__T11_36_[id number].jpg Rec1_hd_video_2021__29T11_[id number]_[id number].jpg Rec1_hd_video_2021__29T11_37_20_121.jpg Rec1_hd_video_2021__T11_37_35_795.jpg . Post-Procedure Complications: none. Estimated blood loss: none. Specimens: sent to pathology. Devices/ implants: none left in place. Impression and Plan 1. Mild esophagitis, LA A, short segment Basilio's esophagus of, 3 tongues, each 1 cm, biopsied 2. Mild gastric erosions, random biopsies obtained to rule out H. pylori Recommendations: 1. Awaiting pathology report. 2. GI clinic follow-up in 2 weeksDiley Ridge Medical CenterComment on above:Result Comment: Electronically Signed By: JOHN BROCK, Marlys\.br\Date and Time Signed: 09/23/21 12:40 EDTOther Comment: Missing Attachment - attachment storage system not supported [id number] Can be viewed in source systemMissing Attachment - attachment storage system not supported [id number] Can be viewed in source systemMissing Attachment - attachment storage system not supported [id number] Can be viewed in source systemMissing Attachment - attachment storage system not supported [id number] Can be viewed in source systemInpatient Patient Summaryon 95-54-9781Krfqadfbb Patient Summary [address] [address] [facility] Clinical Discharge Instructions PERSON INFORMATION Name: DAI العلي PHYSICIANS Admitting Physician: Marlys LOPEZ MD Attending Physician: Marlys LOPEZ MD PCP: SHAY ROCA DO Discharge Diagnosis: Anemia Comment: PATIENT EDUCATION INFORMATION Instructions: Esophagitis; Upper Endoscopy, Adult, Care After; Diverticulosis; Colon Polyps; Colonoscopy, Care After Surgery John (Custom) Medication Leaflets: Follow up: With: Address: When: Marlys LOPEZ [address] [place] [address]. [address] [place], [place] [id number] Business (1) Comments: Call for any problems. Office will call you if follow up is needed. MEDICATION LIST New Medications [facility], [address] [phone], [phone] omeprazole (omeprazole 40 mg Cap-DR) 1 Capsules [...] sodium chloride (sodium chloride 1 g Tab) Comment:NormalFishMercy Medical CenterMain OR PACU I Recordon 77-84-7581Jcou OR PACU I RecordPACU Phase I Document Type FT Summary Primary Physician: Marlys LOPEZ MD Finalized Date/Time: 09/23/21 13:39:44 Pt. Name: DAI العلي Neha/Sex: 1945 Male Med Rec #: [id number] Physician: Marlys LOPEZ MD Financial #: [id number] Pt. Type: O Room/Bed: / Admit/Disch: 09/23/21 [...] individualized perioperative plan of care The patient's rightto privacy is maintained The patient's value system, [...] with or improved from baseline levels established preoperativelyThe patient's cardiovascular status is consistent with or improved from baseline levels established preoperatively The patient's cardiovascular status is consistent with or improved from baseline levels established preoperatively The patient demonstrates and/or reports adequate pain control throughout the perioperative period The patient received appropriate medication(s), safely administered during the perioperativeperiod Acuity Level PACU I FT Entry 1 Start Time 09/23/21 12:53:00 Stop Time 09/23/21 13:33:00 Acuity Level Acuity Level I Last Modified By: Laura Gross RN 09/23/21 13:39:41 Finalized By: Laura Gross RN Document Signatures Signed By: Laura Gross RN 09/23/21 13:39NormalSheltering [facility] HospitalMain OR Preoperative Recordon 70-02-9905Tfin OR Preoperative RecordHolding Area Document Type FT Summary Primary Physician: Marlys LOPEZ MD Finalized Date/Time: 09/23/21 11:49:54 Pt. Name: SACHA DAI OsunaO.B./Sex: 1945 Male Med Rec #: [id number] Physician: Marlys LOPEZ MD Financial #: [id number] Pt. Type: O Room/Bed: / Admit/Disch: 09/23/21 [...] or her perioperative plan of care The patient'sright to privacy is maintained Surgery Checklist FT [...] Signatures Signed By: Kenny Burris RN 09/23/21 11:49NoPremier Health [facility] NorthMonitor Recordon 71-59-8923Ybgczys Record [id number]:127NoPremier Health [facility] Hospital NorthOutpatient Surgery Discharge Instructionon 50-19-4799Unmhiqjspr Surgery Discharge Instruction [place] [id number] Patient Discharge Instructions PERSON INFORMATION Name: DAI العلي Date of : 1945 Current Date: 09/23/2021 13:01:52 PHYSICIANS Admitting Physician: JOHN BROCK Frankel Discharge Diagnosis: Anemia DAI العلي has been [...] THE NEAREST EMERGENCY ROOM OR CALL 911 SACHA Koehler JOHN E, have received the attached patient education materials/instructions and have verbalized understanding: May we do a follow up call? Yes No I was present when discharge instructions were given Patient Signature Date Clinican/Nurse Signature Date Follow up: With: Address: When: Marlys LOPEZ [address] [place], [place] [address]joon. [address] [place] [id number] Business (1) Comments: Call for any problems. Office will call you if follow up is needed. Pharmacy Information: [facility] Saldiv[facility] You may receive a survey from [employer] asking you to rate your care experience. Your feedback is important and will help us understand what we do well and how we can improve the quality of care we provide to you, your loved ones and our community. It?s an honor to serve you. Thank you for choosing [facility] HERE ARE THE MEDICATION CHANGES THAT OCCURRED DURING YOUR HOSPITAL STAY New Medications [facility], [address] [phone], [phone] omeprazole (omeprazole 40 mg Cap-DR) 1 Capsules [...] ? A test t (more content not included)...[facility] Patient Education - Texton 32-16-0654Sanjbou Education - TextColonoscopy Care After Surgery Please read the instructions outlined below and refer to this sheet in the next few weeks. These discharge instructions provide you with general information on caring for yourself after you leave thespital. Your doctor may also give you specific [...] these instructions at home: Medicines ? Take bxpt-jgj-kaeqlky and prescription medicines only as told by [...] and drinking (Inserted Image. (more content not included)...[facility] Consent for Procedure/Surgeryon 65-05-5673Qfprlia for Procedure/Surgery [id number]:127[facility] CenterPatient Correspondenceon 07-71-1225Dsmavtz Correspondence [id number]:127[facility] CenterAmbulatory Visit Summaryon 55-99-1765Hgkfuuznyw Visit Summary DAI العلي :1945 Visit Date:09/03/2021 Ambulatory Visit Instructions Your Diagnosis Anemia Your Care Team Attending Physician - Marlys LOPEZ MD Primary Care Physician - CHANELLE [place], SHAY Referring Physician - SHAY ROCA DO This Is Your Medications List Contact [...] Follow-Up Appointments Tuesday 12:20 PM EDT Where: [facility] Surgical Services Medications What How Much When [...] Essential hypertension Familial hypercholesterolemia Hyponatremia Lung nodules [facility] CenterGastroenterology Office/Clinic Noteon 67-29-1907Zxuwbehomvcuhipj Office/Clinic NoteChief Complaint anemia HPI Staff CORN HUSKER Dai is a 76 y.o. male referred by Dr. Roca for anemia History of Present Illness Dai [...] constipation. He denies a family history of coloncancer. He estimates that Dr. La performed his last colonoscopy 15 years ago. 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 Review of Systems PHQ Score Initial [...] rubs, murmurs or gallop. Peripheral: no edema Gastrointestinal/Abdomen: Abdomen: normal consistency and bowel sounds; no [...] after patient or guardian consented to allow [employer] to record this visit. ALISON development specialist and provider reviewed before signing. ALISON: [...] Date Status influenza virus vaccine, inactivated 10/2020 RecordedNoPremier Health Miami Valley Hospital NorthComment on above:Result Comment: Electronically Signed By: Marlys LOPEZ MD\.br\Date and Time Signed: 09/03/21 14:17 EDT\.br\Electronically Co-Signed By: Alexandria Rodriguez\.br\Date and Time Co-Signed: 09/03/21 14:16 EDTCBC AUTO DIFFon [id number] #0.1 103/ulNormal0.0-0.1The [facility] HospitalComment on above:Performed By: #### TSH, URIC, CMP #### [facility] [address] [address] [address] Sherman SantosBasophils/100 WBC (Bld)0.8 %Normal0.2-2.0The [facility] Comment on above:Performed By: #### TSH, URIC, CMP #### [facility] [address] [place] [address] Dr. Sherman Cevallos #0.3 103/ulNormal0.0-0.7The [facility] HospitalComment on above: Performed By: #### TSH, URIC, CMP #### [facility] [address] [address] [address] Sherman Romeroosinophils/100 WBC (Bld)4.9 %Normal0.9-7.0The [facility] Comment on above:Performed By: #### TSH, URIC, CMP #### [facility] [address] [place] [address] Dr. Sherman Romerorythrocyte distribution width (RBC) [Ratio]12.3 %Nvizut84.0-15.0 The [facility] HospitalComment on above:Performed By: #### TSH, URIC, CMP #### [facility] [address] [place] [address] Dr. Sherman SantosHematocrit (Bld) [Volume fraction]44.5 %Uotyam62.0-54.0The [facility] Daytonment on above:Performed By: #### TSH, URIC, CMP #### [facility] [address] [place] [address] Dr. Sherman SantosHemoglobin (Bld) [Mass/Vol]14.5 g/wJNbqing61.0-18.0The [facility] Daytonment on above:Performed By: #### TSH, URIC, CMP #### [facility] [address] [place] [address] Dr. Sherman Toledo #0.02 10e3/ulNormal0.00-0.03The [facility] on above:Performed By: #### TSH, URIC, CMP #### [facility] [address] [place] [address] Dr. Sherman Toledo %0.3 %Normal0.0-0.5The [facility] on above: Performed By: #### TSH, URIC, CMP #### [facility] [address] [place] [address] Dr. Sherman Yeager #2.1 103/ulNormal1.2-3.8The [facility] on above:Performed By: #### TSH, URIC, CMP #### [facility] [address] [place] [address] Dr. Sherman Hernandezhocytes/100 WBC (Bld)34.7 %Oflmfv20.5-60.0The [facility] Daytonment on above:Performed By: #### TSH, URIC, CMP #### [facility] [address] [place] [address] Dr. Sherman MoUAL DIFF REQNONormalThe [facility] HospitalComment on above: Performed By: #### TSH, URIC, CMP #### [facility] [address] [place] [address] Dr. Sherman Mckenzie (RBC) [Entitic mass]32.7 kgSepwgg85.9-34.0The [facility] HospitalComment on above:Performed By: #### TSH, URIC, CMP #### [facility] [address] [address] [address] Sherman Mckenzie (RBC) [Mass/Vol]32.6 g/tGQvfybl12.9-35.2The [facility] HospitalComment on above:Performed By: #### TSH, URIC, CMP #### [facility] [address] [address] [address] Sherman Mckenzie (RBC) [Entitic vol]100.2 fLCritically high80.0-94.0The [facility] HospitalComment on above:Performed By: #### TSH, URIC, CMP #### [facility] [address] [place] [address] Dr. Sherman Freeman #0.9 103/ulCritically high0.3-0.8The [facility] Comment on above:Performed By: #### TSH, URIC, CMP #### [facility] [address] [address] [address] Sherman Pradhanocytes/100 WBC (Bld)14.6 %Critically high1.7-12.0The [facility] HospitalComment on above:Performed By: #### TSH, URIC, CMP #### [facility] [address] [address] [address] Sherman Buck #2.7 103/ulNormal1.4-6.5The [facility] HospitalComment on above:Performed By: #### TSH, URIC, CMP #### [facility] [address] [address] [address] Sherman Crawleyutrophils/100 WBC (Bld)44.7 %Lmsbmr95.0-75.0The [facility] HospitalComment on above:Performed By: #### TSH, URIC, CMP #### [facility] [address] [address] [address] Sherman Izquierdolet mean volume (Bld) [Entitic vol]9.6 fLNormal9.5-13.5The [facility] on above:Performed By: #### TSH, URIC, CMP #### [facility] [address] [place] [address] Dr. Sherman LlanosT323 103/giJmzlsy999-938Zdb [facility] on above: Performed By: #### TSH, URIC, CMP #### [facility] [address] [place] [address] Dr. Sherman SantosRBC4.44 106/ulCritically low4.70-6.10The [facility] on above:Performed By: #### TSH, URIC, CMP #### [facility] [address] [place] [address] Dr. Sherman SantosWBC6.0 103/ulNormal4.0-11.0The [facility] on above: Performed By: #### TSH, URIC, CMP #### [facility] [address] [place] [address] Dr. Sherman SantosLIPID PROFILEon 60-16-4592IGQX-HDL RATIO NORMSEE [facility] on above:Result Comment: 3.3 - 4.4 LOW RISK 4.4 - 7.1 AVERAGE RISK 7.1 - 11.0 MODERATE RISK >11.0 HIGH RISKPerformed By: #### OSMO #### [facility] [address] [place] [address] Dr. Sherman SantosCholesterol [Mass/Vol]253 mg/dLCritically high<=200The [facility] on above:Performed By: #### OSMO #### [facility] [address] [place] [address] Dr. Sherman SantosCholesterol in HDL [Mass/Vol]42 mg/uLIxxcfx51-83Qfv [facility] on above:Performed By: #### OSMO #### [facility] [address] [place] [address] Dr. Sherman Justinesterol in LDL [Mass/Vol]156.8 mg/dLLouis Stokes Cleveland VA Medical Centerment on above:Performed By: #### OSMO #### [facility] [address] [place] [address] Dr. Sherman SantosCholesterol.total/Cholesterol in HDL [Mass ratio]6.0 {ratio} NormalThe [facility] on above:Performed By: #### OSMO #### [facility] [address] [place] [address] Dr. Sherman Rees NORMAL> or = 60 mg/dl - LOW CARDIOVASCULAR RISK <40 mg/dl - HIGH CARDIOVASCULAR RISKBrecksville VA / [facility]ille Hospital on above:Performed By: #### OSMO #### [facility] [address] [place] [address] Dr. Sherman SantosLDL CALC NORMALSEE BELOWBrecksville VA / [facility]ille Hospital on above:Result Comment: <100 mg/dl OPTIMAL 100 - 129 mg/dl NEAR OR ABOVE OPTIMAL 130 - 159 mg/dl BORDERLINE HIGH 160 - 189 mg/dl HIGH >190 mg/dl VERY HIGH Performed By: #### OSMO #### [facility] [address] [place] [address] Dr. Sherman SantosTriglyceride [Mass/Vol]271 mg/dLCritically high<=150[facility] on above:Performed By: #### OSMO #### [facility] [address] [place] [address] Dr. Sherman SantosVLDL CALC54.2 mg/dLNoSelect Medical OhioHealth Rehabilitation HospitalComhenry for[facility] on above: Performed By: #### OSMO #### [facility] [address] [place] [address] Dr. Sherman SantosPROF 14(COMP METB)on 61-70-1739Iaqvebh [Mass/Vol]4.5 g/dLNormal 3.4-5.0[facility] on above:Performed By: #### TSH, CMP, LIPID, T4 #### [facility] [address] [place] [address] Dr. Sherman SantosAlbumin/Globulin [Mass ratio]1.2 {ratio}NormalThe [facility]ariel HospitalComment on above:Performed By: #### TSH, CMP, LIPID, T4 #### [facility] [address] [address] [address] Sherman Lyons [Catalytic activity/Vol]91 U/PQelqdb04-727Trq [facility] HospitalComment on above:Performed By: #### TSH, CMP, LIPID, T4 #### [facility] [address] [place] [address] Dr. Sherman Dee [Catalytic activity/Vol]53 U/DEjeflk85-79Oxw [facility] HospitalComment on above:Performed By: #### TSH, CMP, LIPID, T4 #### [facility] [address] [place] [address] Dr. Sherman Cano gap [Moles/Vol]16.7 mmol/LNormalThe [facility] Comment on above:Performed By: #### TSH, CMP, LIPID, T4 #### [facility] [address] [place] [address] Dr. Sherman SantosAST [Catalytic activity/Vol]42 U/LCritically iqoa22-04Xxn [facility] HospitalComment on above:Performed By: #### TSH, CMP, LIPID, T4 #### [facility] [address] [place] [address] Dr. Sherman SantosBilirubin [Mass/Vol]0.7 mg/dLNormal0.2-1.0The [facility] Comment on above:Performed By: #### TSH, CMP, LIPID, T4 #### [facility] [address] [place] [address] Dr. Sherman SantosCalcium [Mass/Vol]9.4 mg/dLNormal8.5-10.1[facility] Comment on above:Performed By: #### TSH, CMP, LIPID, T4 #### [facility] [address] [place] [address] Dr. Sherman SantosChloride [Moles/Vol]93 mmol/LCritically fzn12-864Wqr [facility] HospitalComment on above:Performed By: #### TSH, CMP, LIPID, T4 #### [facility] [address] [place] [address] Dr. Sherman SantosCO2 [Moles/Vol]24.2 mmol/TRlikiu91.0-32.0The [facility] Comment on above:Performed By: #### TSH, CMP, LIPID, T4 #### [facility] [address] [address] [address] Sherman SantosCreatinine [Mass/Vol]0.85 mg/dLNormal0.70-1.30The [facility] HospitalComment on above:Performed By: #### TSH, CMP, LIPID, T4 #### [facility] [address] [address] [address] Sherman RomeroGFR-AF GERMAN>60Normal>=60The [facility] HospitalComment on above:Performed By: #### TSH, CMP, LIPID, T4 #### [facility] [address] [address] [address] Sherman RomeroGFR-NON AF GERMAN>60Normal>=60The [facility] HospitalComment on above:Performed By: #### TSH, CMP, LIPID, T4 #### [facility] [address] [address] [address] Sherman SantosGlobulin (S) [Mass/Vol]3.6 g/dLNormalThe [facility] HospitalComment on above:Performed By: #### TSH, CMP, LIPID, T4 #### [facility] [address] [address] [address] Sherman SantosGlucose [Mass/Vol]71 mg/dLCritically fwl32-019Aol [facility] Daytonment on above:Performed By: #### TSH, CMP, LIPID, T4 #### [facility] [address] [address] [address] Sherman SantosPotassium [Moles/Vol]4.9 mmol/LNormal3.5-5.1The [facility] Comment on above:Performed By: #### TSH, CMP, LIPID, T4 #### [facility] [address] [address] [address] Sherman SantosProtein [Mass/Vol]8.1 g/dLNormal6.4-8.2The [facility] Comment on above:Performed By: #### TSH, CMP, LIPID, T4 #### [facility] [address] [address] [address] Sherman SantosSodium [Moles/Vol]129 mmol/LCritically asp046-085Gju [facility] HospitalComment on above:Performed By: #### TSH, CMP, LIPID, T4 #### [facility] [address] [place] [address] Dr. Sherman Molina nitrogen [Mass/Vol]14.0 mg/dLNormal7.0-18.0The [facility] HospitalComment on above:Performed By: #### TSH, CMP, LIPID, T4 #### [facility] [address] [place] [address] Dr. Sherman Molina nitrogen/Creatinine [Mass ratio]16.5 mg/mgNoSelect Medical OhioHealth Rehabilitation HospitalComment on above:Performed By: #### TSH, CMP, LIPID, T4 #### [facility] [address] [place] [address] Dr. Sherman Saldaña4on 77-36-3924G4 [Mass/Vol]6.30 ug/dLNormal4.50-12.10The [facility] HospitalComment on above:Performed By: #### OSMO #### [facility] [address] [place] [address] Dr. Sherman Benavides 58-95-8189UEH5.809 uIU/mLNormal0.358-3.740The [facility] HospitalComment on above:Performed By: #### OSMO #### [facility] [address] [place] [address] Dr. Sherman [facility]abala [facility] BELOWCleveland Clinic South Pointe HospitalComment on above: Result Comment: <0.34 UIU/ml HYPERTHYROID 0.34-5.60 UIU/ml EUTHYROID >5.60 UIU/ml HYPOTHYROIDPerformed By: #### OSMO #### [facility] [address] [place] [address] Dr. Sherman Rangel Referralon 36-97-4809Godlnrwgd Referral [id number]:127[facility] Vital Signs Date TimeVital SignValuePerforming JlrmhjoltNyvljrrq16-10-1937 09:19-0500Body kwuilc762.34 cmBenjamin Ball DO Work Phone: [phone] [place], [place] 1931011-06-2025 09:19-0500 Body mass index (BMI) [Ratio]23.9 kg/o1Ypbeknhl Ball DO Work Phone: [phone])[address] [place], [place] 1931011-06-2025 09:19-0500 Body nymgck14.79 kgBenjamin Ball DO Work Phone: [phone])[address] [place], [place] 1931011-06-2025 09:19-0500 Diastolic blood utpkhyxf33 mm[Hg]Shay Ball DO Work Phone: [phone])[address] [place], [place] 1931011-06-2025 09:19-0500 Diastolic blood gzcxybiz97 mm[Hg]Shay Ball DO Work Phone: [phone])[address] [place], [place] 1931011-06-2025 09:19-0500 Heart rate80 /minBenjamin Ball DO Work Phone: [phone])[address] [place], [place] 1931011-06-2025 09:19-0500 Respiratory rate12 /minBenjamin Ball DO Work Phone: [phone] [place], [place] 1931011-06-2025 09:19-0500 Systolic blood mm[Hg]Shay Ball DO Work Phone: [phone])[address] [place], [place] 1931011-06-2025 09:19-0500 Systolic blood szphyboo775 mm[Hg]Shay Ball DO Work Phone: [phone])[address] [place], [place] 1931007-31-2025 08:50-0400 Body vuywla671.34 cmBenjamin Ball DO Work Phone: [phone] [place], [place] 1931007-31-2025 08:50-0400 Body mass index (BMI) [Ratio]24 kg/t9Cxlihtap Ball DO Work Phone: [facility]07-31-2025 08:50-0400 Body ytzstd24.07 kgBenjamin Ball DO Work Phone: [facility]07-31-2025 08:50-0400 Diastolic blood cvukqyre38 mm[Hg]Shay Ball DO Work Phone: [phone]07-31-2025 08:50-0400 Heart rate72 /minBenjamin Ball DO Work Phone: [phone]07-31-2025 08:50-0400 Respiratory rate12 /minBenjamin Ball DO Work Phone: [phone]07-31-2025 08:50-0400 Systolic blood sopqzpdu760 mm[Hg]Shay Ball DO Work Phone: [phone] [place], [place] [address]6-13-2025 14:12-0400 Body pbyslx154.3 cmNicholas Brown DPM Work Phone: [facility] CenterGmkatbpepv94-65-9562 14:12-0400Body mass index (BMI) [Ratio]23.71 kg/o9Dgekgkbj Brown DPM Work Phone: [facility] CenterZctcyrktoc16-90-8242 14:12-0400Body nbfawd41.11 kgNicholas Brown DPM Work Phone: [facility] CenterPvnkigwsnr77-43-2121 14:12-0400Respiratory rate16 /minNicholas Brown DPM Work Phone: [phone]2025 10:24-0400Body iiziby410.34 cmBenjamin Ball DO Work Phone: [phone]2025 10:24-0400 Body mass index (BMI) [Ratio]24.8 kg/h9Allbyksk Ball DO Work Phone: [phone]2025 10:24-0400 Body cdkfew92.73 kgBenjamin Ball DO Work Phone: [facility]04-16-2025 15:00-0400 Body yuwmgu845.3 cmJacobo Brown DPM Work Phone: [facility] CenterWhjwopswic68-14-8359 15:00-0400Body mass index (BMI) [Ratio]23.71 kg/r1Vkupozuonohemy Brown DPM Work Phone: [facility] CenterJqcsyuwufb81-75-8520 15:00-0400Body uccnsn51.11 kgJacobo Brown DPM Work Phone: [facility] CenterTqwxxzbkrl34-53-9389 15:00-0400Respiratory rate16 /Rahul Brown DPM Work Phone: [facility] CenterHzcgqbwdxm75-38-7825 15:59-0400Body livsgo064.3 cmJacobo Brown DPM Work Phone: [facility] CenterDewkuntkmk31-71-3371 15:59-0400Body mass index (BMI) [Ratio]23.71 kg/c4WmmnxfosJacobo Brown DPM Work Phone: [facility] CenterNnqdlrqdqh63-18-2292 15:59-0400Body kinahg24.11 kgJacobo Brown DPM Work Phone: [facility] CenterQpuaoigncq01-24-7174 15:59-0400Respiratory rate16 /Rahul Brown DPM Work Phone: [facility] CenterVvfvmffnqe45-74-7971 08:34-0400Body [address]iu[address]03-18-2025 08:34-0400Body mass index (BMI) [Ratio]24 kg/x5KpbjtwmlxWilson [address] [facility]03-18-2025 08:34-0400Body weight [address]03-18-2025 08:34-0400Diastolic blood lguyuubt63 mm[Hg][facility]03-18-2025 08:34-0400Heart rate72 /[facility]03-18-2025 08:34-0400Respiratory rate12 /[facility]03-18-2025 08:34-0400Systolic blood euapdglo761 mm[Hg][facility]02-18-2025 08:39-0500Body [address]kdruq349.[address]02-18-2025 08:39-0500Body mass index (BMI) [Ratio]24 kg/z0BffxclcelWilson [address] Hospital02-18-2025 08:39-0500Body vbloiw84.[address]02-18-2025 08:39-0500Diastolic blood jajdgqhk42 mm[Hg][facility] 05-15-2024 08:39-0500Heart rate76 /[facility] 05-15-2024 08:39-0500Respiratory rate12 [facility] 05-15-2024 08:39-0500Systolic blood yyuldibi019 mm[Hg][facility]12-11-2024 09:16-0500Body qashaz582.[address]12-11-2024 09:16-0500Body mass index (BMI) [Ratio]24.3 kg/c0YyrxqlumfWilson Street Hospital12-11-2024 09:16-0500Body murafw55.09 [facility]12-11-2024 09:16-0500Diastolic blood sigmwgtp03 mm[Hg] [facility]12-11-2024 09:16-0500Heart rate83 /[facility]12-11-2024 09:16-0500Respiratory rate12 [facility]12-11-2024 09:16-0500Systolic blood tyiketzf515 mm[Hg] [facility]11-06-2024 10:47-0500Body fvlurz492.3 cmAlex Garcia MD Work Phone: [facility] CenterSpjhkomqnn74-83-1660 10:47-0500Body mass index (BMI) [Ratio]23.99 kg/v6YtyukiAlex Garcia MD Work Phone: [facility] CenterXgzvuuzyqi73-13-3348 10:47-0500Body zynncz19.02 Jamie Garcia MD Work Phone: [facility] CenterVocoztkzrx56-58-2104 10:47-0500Diastolic blood mm[Hg]Alex Garcia MD Work Phone: [facility] CenterHnohigvocp47-29-3398 10:47-0500Systolic blood omvjraok240 mm[Hg]Alex Garcia MD Work Phone: [facility] CenterPjzizvkoaw45-19-6490 11:18-0400Body qgadal280.34 [facility]10-29-2024 11:18-0400Body mass index (BMI) [Ratio]23.9 kg/f6DximyuveaWilson [address] Hospital10-29-2024 11:18-0400Body qgpuje44.[address]10-29-2024 11:18-0400Diastolic blood owziigwf50 mm[Hg][facility]10-29-2024 11:18-0400 Heart rate93 /[facility]10-29-2024 11:18-0400 Respiratory rate12 /[facility] [facility]24 11:18-0400 Systolic blood oqroguqi765 mm[Hg][facility]08-12-2024 12:00-0400Body [address]uzpoq720.[address]08-12-2024 12:00-0400Body mass index (BMI) [Ratio]23.8 kg/b0UsnmpfvnxWilson [address] [facility]08-12-2024 12:00-0400Body osiwvc07.[address] 11-07-2023 12:00-0400Diastolic blood dsqmyjdh09 mm[Hg][facility]08-12-2024 12:00-0400Heart rate80 /[facility] 11-07-2023 12:00-0400Respiratory rate12 /[facility] 11-07-2023 12:00-0400Systolic blood ikckowce359 mm[Hg][facility]05-10-2024 08:52-0400Body [address]sauea813.[address]05-10-2024 08:52-0400Body mass index (BMI) [Ratio]23.7 kg/y7HkygcohmfWilson Street [facility]05-10-2024 08:52-0400Body .16 [facility]05-10-2024 08:52-0400Diastolic blood mm[Hg] [facility]05-10-2024 08:52-0400Heart rate80 /[facility]05-10-2024 08:52-0400Respiratory rate12 /[facility]05-10-2024 08:52-0400Systolic blood mccxiqwe656 mm[Hg] [facility]02-21-2024 14:31-0500Body mhxubw274.[address] [facility]02-21-2024 14:31-0500Body mass index (BMI) [Ratio]24.3 kg/l4AkyusowypWilson [address] Hospital02-21-2024 14:31-0500Body wqukwv28.15 [facility]02-21-2024 14:31-0500Diastolic blood zenkbvri43 mm[Hg][facility]02-21-2024 14:31-0500 Heart rate77 /[facility]02-21-2024 14:31-0500 Respiratory rate12 /[facility]02-21-2024 14:31-0500 Systolic blood kdlatprq343 mm[Hg][facility]01-11-2024 08:30-0500Body cnexag177.[address]01-11-2024 08:30-0500Body .[address]01-11-2024 08:30-0500Diastolic blood wxgntmer92 mm[Hg][facility] 04-07-2023 08:30-0500Systolic blood mm[Hg][facility]10-09-2023 08:30-0400Body quykgu203.34 cmBenjamin Ball Other [facility] Other [id number] 08:30-0400Body mass index (BMI) [Ratio] 24.29 kg/d2Gumfuggq Ball Other [employer] Other 10-09-2023 08:30-0400Body lsiujk92.02 kgBenjamin Ball Other [employer] Other 10-09-2023 08:30-0400Diastolic blood rofxkhmh77 mm[Hg] Shay Ball Other [employer] Other 10-09-2023 08:30-0400Respiratory rate12 /minBenjamin Ball Other [employer] Other 10-09-2023 08:30-0400Systolic blood iievxqpc976 mm[Hg] Shay Ball Other [employer] Other 04-27-2023 09:30-0400Body irpcdu876.34 cmBenjamin Ball Other [employer] Other 04-27-2023 09:30-0400Body mass index (BMI) [Ratio] 24.18 kg/b5Eohrjitg Ball Other [employer] Other 04-27-2023 09:30-0400Body yxjezm19.65 kgBenjamin Ball Other [employer] Other 04-27-2023 09:30-0400Diastolic blood rlvwhyhq95 mm[Hg] Shay Ball Other [employer] Other 04-27-2023 09:30-0400Respiratory rate12 /minBenjamin Ball Other [employer] Other 04-27-2023 09:30-0400Systolic blood lkbjyunu693 mm[Hg] Shay Ball Other [employer] Other 03-30-2023 11:00-0400Body ogwlrh961.34 cmThomas Olexa Other [employer] Other 03-30-2023 11:00-0400Body mass index (BMI) [Ratio] 24.27 kg/a5Gnpoyq Olexa Other [employer] Other 03-30-2023 11:00-0400Body ebxsac50.93 kgThomas Olexa Other [employer] Other 01-24-2023 09:30-0500Body ebpsom601.34 cmBenjamin Ball Other [employer] Other 01-24-2023 09:30-0500Body mass index (BMI) [Ratio] 24.35 kg/p2Pdyhuets Ball Other [employer] Other 01-24-2023 09:30-0500Body .2 kgBenjamin Ball Other [employer] Other 01-24-2023 09:30-0500Diastolic blood egozlowd14 mm[Hg] Shay Ball Other [employer] Other 01-24-2023 09:30-0500Respiratory rate12 /minBenjamin Ball Other [employer] Other 01-24-2023 09:30-0500Systolic blood eiiydmob001 mm[Hg] Shay Ball Other [employer] Other 06-29-2022 13:25-0400Blood Pressure LocationMaher SALAM [facility]06-29-2022 13:25-0400 Diastolic blood riqzacud56 mm[Hg]Frankel SALAM [facility]06-29-2022 13:25-0400Heart rate61 /minMaher SALAM [facility]06-29-2022 13:25-0400 Respiratory rate16 /minMaher SALAM [facility]06-29-2022 13:25-8290EoM7% (BldA) [Mass fraction]99 %Frankel SALAM [facility]06-29-2022 13:25-0400 Systolic blood mjzexcqb461 mm[Hg]Frankel SALAM [facility]06-29-2022 13:10-0400Blood Pressure LocationMther SALAM [facility]06-29-2022 13:10-0400 Diastolic blood ocodiwph13 mm[Hg]Frankel SALAM [facility]06-29-2022 13:10-0400Heart rate80 /minMaher SALAM [facility]06-29-2022 13:10-0400 Respiratory rate12 /minMaher SALAM [facility]06-29-2022 13:10-8794HgT4% (BldA) [Mass fraction]96 %Frankel SALAM [facility]06-29-2022 13:10-0400 Systolic blood wybsbwlw055 mm[Hg]Frankel SALAM [facility]06-29-2022 13:05-0400Blood Pressure LocationMther SALAM [facility]06-29-2022 13:05-0400 Diastolic blood wrqieiad46 mm[Hg]Frankel SALAM [facility]06-29-2022 13:05-0400Heart rate75 /minMaher SALAM [facility]06-29-2022 13:05-0400 Respiratory rate11 /minMaher SALAM [facility]06-29-2022 13:05-5159FaO9% (BldA) [Mass fraction]97 %Frankel SALAM [facility]06-29-2022 13:05-0400 Systolic blood mm[Hg][facility] SALAM [facility]06-29-2022 12:53-0400Body oebiuqulvnv94.06 [degF]Frankel SALAM [facility]06-29-2022 11:55-0400Body aobfcgnarxe83.06 [degF]Frankel SALAM [facility]06-09-2022 13:09-0400Blood Pressure LocationMther SALAM [phone]-QdqeoBl[facility]ard [facility] 06-09-2022 13:09-0400Diastolic blood ymnswimt91 mm[Hg] [facility] SALAM [phone]-XriwcBlanchard Valley [facility] 06-09-2022 13:09-0400Heart rate78 /minMaher SALAM [phone]-NiphcBlanchard Valley Health System [facility] 06-09-2022 13:09-0400Respiratory rate16 /minMaher SALAM [phone]-JugcdBlanchard Valley [facility] 06-09-2022 13:09-0400Systolic blood xihxtkqj410 mm[Hg] Marlys LOPEZ [phone]-HwlvvBlanchard Valley [facility] 06-09-2022 09:15-0400Body wbjlpi679.34 cmNikjaved Puckettarney Other [employer] Other 06-09-2022 09:15-0400Body mass index (BMI) [Ratio] 23.71 kg/p4FuvfvmmeRenee Lawrence Other [employer] Other 06-09-2022 09:15-0400Body .11 kgJejaved Lawrence Other [employer] Other 11-04-2021 11:30-0400Body rerjdn092.34 cmThomas Olexa Other [employer] Other 11-04-2021 11:30-0400Body mass index (BMI) [Ratio] 24.96 kg/a7Hzidim Olexa Other [employer] Other 11-04-2021 11:30-0400Body rjmbbi76.19 kgThomas Olexa Other [employer] Other Encounters Encounter DateEncounter TypeCare ProviderFacilityStart: 01-31-2025 End: 59-92-3031Xcxdzvo encounter procedureThomas Robyn Starkey MD-[facility] [place] Work Phone: Start: 01-31-2025 End: 58-92-1442adnemuydfbBznowdnp Ball DO Work Phone: -[facility] CampusStart: 01-31-2025 End: 96-67-4234rmkazrkhegMhhmbesm Ball DO Work Phone: -[employer] [facility] [employer] [facility] [employer] [facility] Medical ClinicStart: 01-31-2025 End: 35-86-9768Ejzqdyy encounter procedureBenjamin Ball DO-[facility] Work Phone: Start: 01-22-2025 End: 74-93-1433kuxmgujafqKzohliws Ball DO Work Phone: [phone]-Ugquojbbl Health OrthopedicsStart: 01-22-2025 End: 58-40-5691Hxupeux encounter procedureHawa Starkey [facility] Work Phone: Start: 12-04-2024 End: 08-52-0486zvimgvoiyqNensbuvs Ball DO Work Phone: [facility] Work Phone: Start: 12-04-2024 End: 42-46-6533Vgdvhzx encounter procedureHawa Starkey MDNov[facility] Work Phone: Start: 55-93-6849Zvi-patient / Non-visitBenjamin Ball DO-[facility] Work Phone: Start: 10-25-2024 End: 11-62-8563bcnnhrlupbZohtwcnm Ball DO Work Phone: [facility] Work Phone: Start: 10-25-2024 End: 60-96-9211Dxqvlyj encounter procedureBenkennmin Ball DO-[facility] Work Phone: Start: 10-25-2024 End: 91-90-0761Obsluct encounter statusBenjamin Ball [facility]: 09-07-2024 End: 00-40-6206Vyfbve outpatient visit 10 minutesJacobo Brown DPM Work Phone: [facility] [place] PODComment on above:Capsulitis of metatarsophalangeal (MTP) joint of right foot (Primary Dx); Hallux rigidus of right foot; DJD (degenerative joint disease), ankle and foot, right; Pain due to onychomycosis of toenails of both feetStart: 09-07-2024 End: 93-79-8229klrxhnedkfFQFKHAXB A BROWNNot AvailableStart: 09-07-2024 End: 50-65-5856Esnjgx flowsheetNicholas A Brown DPM Work Phone: [facility] [place] PODStart: 09-07-2024 End: 84-05-2225Rrwqqr flowsheetNicholas A Brown DPM Work Phone: noMS [place] PODStart: 09-04-2024 End: 84-05-7981iyiabdkenyQfbtimwx Ball DO Work Phone: [facility] Work Phone: Start: 09-04-2024 End: 65-64-1359Anweovj encounter procedureBenjamin Ball DO Work Phone: [facility] Work Phone: Start: 07-11-2024 End: 40-32-3018Mhzwyz outpatient visit 15 minutesNicnohemy Brown DPM Work Phone: noMS [place] PODComment on above:Hallux rigidus of right foot (Primary Dx); Capsulitis of metatarsophalangeal (MTP) joint of right foot; DJD (degenerative joint disease), ankle and foot, rightStart: 07-11-2024 End: 33-82-5154rnxcamqysiQPRBYODU Robyn BROWNNot AvailableStart: 07-11-2024 End: 22-87-6757Jfmbzn flowsheetNicholas A Brown DPM Work Phone: [facility] [place] PODStart: 07-11-2024 End: 53-71-2274Ifrapd flowsheetNicholas A Brown DPM Work Phone: no[place] PODStart: 07-03-2024 End: 60-09-5193uyevmzxccfOtbvnvqy Ball DO Work Phone: [facility] Work Phone: Start: 07-03-2024 End: 79-56-4103Ukalxedy ReferredShay Roca DO Work Phone: [facility] [address] Work Phone: start: 06-27-2024 End: 23-70-7091Lwhyhg outpatient new 30 minutesJacobo Brown DPM Work Phone: noms [place] PODComment on above:DJD (degenerative joint disease), ankle and foot, right (Primary Dx); Hallux rigidus of right foot; Acquired deformity of right toe; Capsulitis of metatarsophalangeal (MTP) joint of right foot; Pain due to onychomycosis of toenails of both feetStart: 06-27-2024 End: 09-81-9421lihgzoqatjDEYRFQXR A BROWNNot AvailableStart: 06-12-2024 End: 50-06-5792zzkiaeqlvpNalafbcrnKindred Hospital [facility] Work Phone: Start: 06-12-2024 End: 44-82-3612Bgtqfkl encounter procedureFormerly [facility] GroupK[facility] Work Phone: Start: 05-15-2024 End: 91-36-9321wywuuhpkctKksngoguuKindred Hospital [facility] Work Phone: Start: 05-15-2024 End: 43-65-7292Thgjudl encounter procedureFormerly [facility] Work Phone: Start: 03-07-2024 End: 46-82-3047Yzowewz encounter procedureFormerly [facility] Work Phone: Start: 02-01-2024 End: 92-48-3124Xxcgsn Jyoti Garcia MD Work Phone: noms ENTStart: 02-01-2024 End: 56-37-6997Jjqstj Jyoti Garcia MD Work Phone: [facility] CI ENTStart: 02-01-2024 End: 89-92-9280Cvavvy outpatient new 45 minutesAlex Garcia MD Work Phone: noms CI ENTComment on above:Chronic vasomotor rhinitis (Primary Dx)Start: 02-01-2024 End: 04-89-1982pfsechezfrTERUOS H TIMMISNot AvailableStart: 01-24-2024 End: 95-69-8428hdwmghoxneSqnnekxubKindred Hospital [facility] Work Phone: Start: 01-24-2024 End: 12-10-9438Pxadogl encounter procedureFormerly [facility] Work Phone: Start: 11-07-2023 End: 65-90-3522uidooyqwvpPontrrdbxAshtabula [facility] Medical Center Work Phone: Start: 11-07-2023 End: 78-68-9125Dogynlj encounter procedureFormerly [facility] Work Phone: Start: 76-18-1405Fey-patient / Non-visitFormerly [facility] Work Phone: Start: 08-05-2023 End: 32-19-9458ialctgydskQcisapsuhKindred Hospital [facility] Work Phone: Start: 08-05-2023 End: 98-02-1575Sjnospyjr for general adult medical examination without abnormal findingsOhioHealth Shelby Hospitaltart: 08-05-2023 End: 41-23-7257Mocqwhc encounter procedureFormerly [facility] Work Phone: Start: 16-46-3361Bpx-patient / Non-visitFormerly [facility] Work Phone: Start: 06-02-2023 End: 07-63-0614Wtwysso encounter procedureFormerly [facility] Work Phone: Start: 05-18-2023 End: 55-93-1358oxdpbrzhdaGwhgcuyneAshtabula County Medical Center Work Phone: Start: 05-18-2023 End: 79-85-2247Nxemwyb encounter procedureFormerly [facility] Work Phone: Start: 04-07-2023 End: 60-58-8697Wjtwmpd encounter procedureFormerly [facility] [employer] [facility] Work Phone: Start: 01-03-2023 End: 87-03-7179gjjpjzkimtDfqmougl Ball Other [employer] Other Start: 03-27-5716Diyfaz outpatient visit 25 minutes Shay [facility] ClinicStart: 07-30-2022 End: 59-32-1479xezaahibltCW SHAY ROCAFacility:H2Sroaj: 07-22-2022 End: 34-00-5547hxitofkrceFplmiwmo Ball Other [employer] Other Start: 67-55-9611Vaouwaapc for general adult medical examination without abnormal findingsBented Roca Medical ClinicStart: 65-57-8894Bubepkdu preventive med est patient 65yrs& olderBelee [facility]oca Medical ClinicStart: 55-29-4247Wuvshh outpatient visit 15 minutesThomas OlexaFPG [facility] OrthopedicsStart: 06-24-2022 End: 65-92-9519tnlxrfspogQQ Shay Roca Work Phone: [employer] Other Start: 06-24-2022 End: 63-11-0103Hcezrtx encounter procedureDO Shay Roca Work Phone: [facility] Start: 04-20-2022 End: 51-01-8509gyvmsfnauoOkxzaaiz Ball Other [employer] Other Start: 61-17-3600Hpnguf outpatient visit 25 minutes Shay RocaIMELDAChandan Roca Medical ClinicStart: 03-02-2022 End: 14-96-9993bsnrcbrjtaGD SOURAV BEDOLLA .Facility:Q2Sfxxl: 03-02-2022 End: 39-06-3874whuhgjfxrtOO SHAY BALLFacility:K9Dyshm: 01-12-2022 End: 65-22-5977soujrlmkrwNO SHAY [place] FALLSFacility:V7Yoowz: 09-23-2021 End: 29-62-9051Ltlgeba encounter procedureMaher SALAM [facility] Start: 09-03-2021 End: 85-55-6055jyswxwsmtnVclilzdm [place] Other [employer] Other Start: 44-63-7514Tsktwm outpatient visit 15 minutes Renee Mihir [facility] OrthopedicsStart: 09-03-2021 End: 89-38-5694Mvlajql encounter procedureDignity Health [facility] SAL [phone]-XnqftBethesda North Hospital [facility] Start: 08-04-2021 End: 33-78-0542wkieejlapfTJ BENJAMIN CHANELLEcility:R9Tnfom: 04-09-2021 End: 78-03-6072bqcajrvtruYxrcqu Olexa Other [employer] Other Start: 11-50-8438Utippe follow up visit related to original pxThomas OlexaFPG [facility] OrthopedicsStart: 02-26-2021 End: 47-08-3069wwwmybgftkZhcfsu Olexa Other [employer] Other Start: 72-03-4100Rlovkrvrm encounterThomas OlexaFPG [facility] OrthopedicsStart: 02-02-2021 End: 00-36-0298diydqpglghRoyhch Olexa Other [employer] Other Start: 03-15-5639Ruqerqdhg encounterThomas OlexaFPChandan Gayle OrthopedicsStart: 01-29-2021 End: 96-48-0985aaozwiqbxjJdfidt Olexa Other [employer] Other Start: 47-74-8971Tzmottnqq for other preprocedural examinationThomas OlexaFPG [facility] OrthopedicsStart: 57-34-8027Jikwvi outpatient visit 25 minutesThomas OlexaFPG [facility] Procedures DateProcedureProcedure DetailPerforming ClinicianStart: 93-08-1699GX of right shoulderBenjamin Ball DO Work Phone: Start: 07-39-0110Vcsyb X-ray of right shoulderBenjamin Ball DO Work Phone: Start: 96-50-5396Ibsnb foot complete minimum 3 views Jacobo Brown DPM Work Phone: Start: 78-13-5934SXT screeningDR SHAY BALLComment on above:Performed By: #### TSH, URIC, CMP #### [facility] [address] [place] [address] Dr. Sherman SantosStart: 39-21-5411Ckivz X-ray of right shoulderDO Shay Ball Work Phone: Start: 45-62-3895RijrgyufuycTsrbo SALAM Start: 42-01-5620Jxoruzyuhjfeybfinsbyfjwuvc gastric outlet reductionMaher SALAM Start: 28-27-0522KCN screeningDR SHAY BALLComment on above:Performed By: #### PSASC #### [facility] [address] [place] [address] Dr. Sherman SantosHistory of repair of musculotendinous cuff of shoulderS/P right rotator cuff repairDO Shay Ball Work Phone: Comment on above:Problem List clean-up per request of Phys. EHR Cmte Plan of Treatment DateCare ActivityDetailAuthorStart: 09-07-2024 End: 95-22-8524Alnjdoe encounter procedureNOMS [place] PODComment on above:Hallux rigidus of right foot (Primary Dx); Capsulitis of metatarsophalangeal (MTP) joint of right foot; DJD (degenerative joint disease), ankle and foot, right; Pain due to onychomycosis of toenails of both feetStart: 61-79-8790Lqgyr X-ray of right shoulderXR shoulder RT min 2V*[facility]art: 07-36-4828XR Shoulder - right ViewsOhioHealth Shelby Hospitaltart: 07-11-2024 End: 06-05-8675Rjsrdqp encounter /16/2025 3:10 PM EDT Office Visit [facility] [address] [place] [id number] Jacobo Brown DPM [address] [facility] [address] [place] [address] Hallux rigidus of right foot (Primary Dx); Capsulitis of metatarsophalangeal (MTP) joint of right foot; DJD (degenerative joint disease), ankle and foot, rightNOMS [place] PODComment on above:Hallux rigidus of right foot (Primary Dx); Capsulitis of metatarsophalangeal (MTP) joint of right foot; DJD (degenerative joint disease), ankle and foot, rightStart: 02-01-2024 End: 75-09-2216Ukvpbjn encounter ekqcyfqnh79/06/2024 10:50 AM EST Office Visit [facility] [address] [facility] [address] [place] [id number] Alex Garcia MD [address] [facility] [address] [place], [place] [id number] ArrivedNOMS CI ENTComment on above:ArrivedStart: 09-83-3506Krirblt referralUniversity Hospitals [facility] Work Phone: Comprehensive metabolic 2000 panel - Serum or Plasma [facility] HospitalCT Shoulder - right WO contrastWilson Street HospitalPatient referralUniversity Hospitals Beachwood Medical Center Work Phone: [facility] Immunizations Immunization DateImmunizationNotesCare YmnicxemSxjpvtin39-09-1530kmgiiwqwz, high dose seasonal, preservative-freeBenjamin Ball DO Work Phone: [facility]10-18-2024influenza, high dose seasonal, preservative-freeBenjamin Ball DO Work Phone: [facility]10-10-2023Influenza vaccine, quadrivalent, adjuvantedBenjamin Ball DO Work Phone: [facility]10-10-2023influenza virus vaccine, unspecified formulationWilson [facility] Hospital 34-98-9460Aevxqjaue vaccine, quadrivalent, adjuvantedBenjamin Ball DO Work Phone: [facility]10-16-2022influenza virus vaccine, split virus (incl. purified surface antigen)Shay Chanelle Other [employer] Other [id number] virus vaccine, unspecified formulationWilson [address] Hospital10-16-2022influenza, high dose seasonal, preservative-freeBenjamin Ball Other [employer] Other [id number] polysaccharide vaccine, [address] valentBenjamin Ball Other [facility]04-14-2022COVID-19 mRNA-1273 (Moderna)Shay Ball DO Work Phone: [facility]10-26-2021COVID-19 mRNA-1273 (Moderna)DO Shay Ball Work Phone: [facility]09-12-2021Influenza vaccine, quadrivalent, adjuvantedBenjamin Ball DO Work Phone: [facility]09-12-2021influenza virus vaccine, split virus (incl. purified surface antigen)Shay Chanelle Other [employer] Other [id number] virus vaccine, unspecified formulationWilson Street Hospital08-01-2021influenza virus vaccine, unspecified formulationMther SALAM 986-5589Gvavah-WnpyfBlanchard Valley Health System [facility] 03644777-45-2410GZLCD-98 Vaccine Moderna - Documentation Purposes OnlyThomas Olexa Other [facility]03-02-2021COVID-19 Vaccine Moderna - Documentation Purposes OnlyThomas Olexa Other [facility]01-19-2021zoster vaccine recombinantBenjamin Ball Other [facility]01-19-2021zoster vaccine, liveBenjamin Ball Other [facility]11-06-2020zoster vaccine recombinantBenjamin Ball Other [facility]11-06-2020zoster vaccine, liveBenjamin Ball Other [facility]10-30-2020 pneumococcal conjugate vaccine, 13 valentBenjamin Ball Other [facility]10-17-2019Seasonal trivalent influenza vaccine, adjuvanted, preservative freeBenjamin Ball DO Work Phone: [facility]10-17-2018influenza, injectable, quadrivalent, preservative freeBenjamin Ball DO Work Phone: [facility] Payers DatePayer CategoryPayerPolicy [id number]-lle [id number] Health InsuranceMEDICAL MUTUAL [id number] 2013MedicareMEDICARE [id number] () [id number].93968-10-3707Vzrjlongsv of Defense ( and others)[id number] .9.173355.14784853-00-7630Aytublmqtk of Defense ( and others)[id number] 52-31-5503Zswzieylcy of Defense ( and others)[id number] 1960Medicare [id number] [id number] .0.005221.2[id number] 2.16.840.1.382309.3.579.2.593 [id number] 2.16.840.1.401100.3.579.2.64451-22-0869Vyhllxb3200799 2.16840.1.424625.3.579.2.32570-21-4374Urqznkv7029139 2.16840.1.511304.3.579.2.20274-29-6598Vijdcul83184399 2.840.1.952550.3.579.[id number] 2.840.1.531324.3.579.2.746795-55-5124Gdfapvh9894264 2.0.1.991527.3.579.2.007234-33-1542Lzicuej8417410 2.0.1.576811.3.579.2.163767-37-8798Ummqzwa6432833 2.840.1.478636.3.579.2.1680Quchzsz8089979 2.840.1.887701.3.579.2.593 [id number] 2.840.1.271295.3.579.2.386Nujezeu59781816 2.840.1.868281.3.579.2.628Cfoiirz51946597 2.840.1.016787.3.579.2.531 [id number] 2.840.1.121658.3.579.2.531 Social History DateTypeDetailFacilityStart: 11-77-9238Ojxynvh smoking statusHeavy tobacco smoker (finding)[employer] Other Start: 02-01-2024 End: 01-12-7945Dje Assigned At [facility] [employer] Other Start: 03-05-2021 End: 54-86-1805Htizoes smoking status NHISSmoker (finding)[facility]tart: 19-63-5886Xua Assigned At [facility] ShawTobacco smoking status NHISTobacco smoking consumption unknownNOMS HealthcareStart: 84-27-7936Nqn assigned at birthNot on fileNOMS Healthcare Start: 03-05-2021 End: 01-95-0942Hgohbsa smoking status NHISSmokes tobacco dailyNOMS Healthcare History of tobacco useCigarette SmokerNOMS HealthcareStart: 92-67-5081Cusstlw use and exposureSmokeless tobacco non-userNOMS HealthcareStart: 02-01-2024 End: 21-30-2768Nflmatxlv beverage intakeCurrent drinker of alcohol (finding)[facility] HealthcareStart: 02-01-2024 End: 09-86-0670Ktatbxt of Social functionNOMS HealthcareStart: 05-15-2024 End: 70-60-9181FbvMeco (finding)[facility] Medical Equipment Procedure CodeEquipment CodeEquipment Original TextEquipment IdentifierDates Arthroscopy, shoulderTendon/ligament bone anchor, bioabsorbable ()[id number] FDAStart: 02-32-2449Rwmvgubyurh, shoulderTendon/ligament bone anchor, bioabsorbable ()[id number] FDAStart: 02-27-2021 Functional Status NmtgJuomrhiffhTawtgjNrdxxtir57-37-7245Kyoqevurxf StatusN/AFemeka - [facility] Clinical Notes 01-29-2021 to 01-31-2025 Note Date & JiywXannQpedsbqb59-66-1394 Radiology Diagnostic study noteRIVERVIEW [place] [address] CT Scan Report Signed Patient: Dai العلي MR#: [id number] : 1945 Acct:[id number] Age/Sex: 79 / M ADM Date: 5 Loc: CT Room: Type: [facility] Attending Dr: Hawa Starkey MD Copies to: Hawa Starkey MD~ Ordering Provider: Hawa Starkey MD Date of Service: 01/31/25 CT/CT shoulder [...] more of the following dose reduction techniques: A utomated exposure control, adjustment of the mA and/or kV according to patient size, or use of iterative reconstruction technique. COMPARISON: 09/04/2024 FINDINGS: Mild hypertrophic changes are noted in the acromioclavicular joint. There is moderate narrowing of the glenohumeral joint. There is cranial migration of thehumeral head in respect to the glenoid pseudoarticulation with the undersurface of the acromion. There are accompanying subcortical cysts. Subco rtical cystic changes also noted along the greater tuberosity consistent with underlying rotator cuff pathology. There is no fracture or dislocation. Visualized right hemithorax is grossly intact. There is scarring in the right lung apex with areas of pleural-based calcification. There is a calcified granuloma in the right middle lobe measuring 3 mm in greatest dimension. There is a pleural-basedcalcified granuloma lateral to this is a 3 mm in greatest dimension. There is a partially calcified6 mm pleural-based granuloma laterally in the right upper lobe. There is a 6 mm noncalcified nodulein the right upper lobe on series 3 image 99. There is a calcified granuloma superior to this measuring5 mm in greatest dimension in the right upper lobe. Degenerative changes are partly visualized in the cervical spine and thoracic spine. Atherosclerotic changes are noted in the thoracic aorta andcoronary arteries. CT/CT shoulder RT wo con IMPRESSION: Moderate degenerative changes are noted in the glenohumeral joint with mild degenerative changes ofthe acromioclavicular joint. There is cranial migration of [...] Ramires M.D. 01/31/2025 5:52 PM Dictation Location: [place] [address] Transcribed By: [facility] 01/31/251751 Dictated By: Doc Ramires II, MD 01/31/251747 Signed By: 01/31/251751 [facility] Work Phone: 1(587) 545-635809-09-2025 Evaluation note* Diagnosis Onset Date Resolution Status [...] 9:02amTubular adenoma of colonacute January 31, 2025 9:02am [facility] Work Phone: 1(850) 557-570807-31-2025 Evaluation note* Diagnosis Onset Date Resolution Status Admit Date 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 acuteJuly 2024 8:36amHypercholesterolemiaacuteJuly 2024 8:36amLung nodule, multipleacuteJuly 2024 8:36amMucopurulent chronic bronchitisacute October 25, 2024 8:36amNicotine addictionacuteJuly 2024 8:36amPrimary hypertensionacuteJuly 2024 8:36amScreening PSA (prostate specific antigen) acuteJuly 2024 8:36amTubular adenoma of colonacuteJuly 2024 8:36am Wellness examinationnoneactiveJuly 2024 8:36amPrimary osteoarthritis, right shoulderacuteSeptember 2024 11:27amRight shoulder tendonitisacute December 04, 2024 11:27amTear of right supraspinatus tendonacuteSeptember 2024 11:27am [facility] Work Phone: 1(648) 970-402707-31-2025 Evaluation note* Diagnosis Onset Date Resolution Status Admit Date 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 acuteJuly 2024 8:36amHypercholesterolemiaacuteJuly 2024 8:36amLung nodule, multipleacuteJuly 2024 8:36amMucopurulent chronic bronchitisacute October 25, 2024 8:36amNicotine addictionacuteJuly 2024 8:36amPrimary hypertensionacuteJuly 2024 8:36amScreening PSA (prostate specific antigen) acuteJuly 2024 8:36amTubular adenoma of colonacuteJuly 2024 8:36am Wellness examinationnoneactiveJuly 2024 8:36amPrimary osteoarthritis, right shoulderacuteSeptember 2024 11:27amRight shoulder tendonitisacute December 04, 2024 11:27amTear of right supraspinatus tendonacuteSeptember 2024 11:27amPrimary osteoarthritis, right shoulderacuteOctober 2024 10:59amRight shoulder tendonitisacuteOctober 2024 10:59amTear of right supraspinatus tendonacuteOctober 2024 10:59am [facility] Work Phone: 1(133) 614-135706-13-2025 History of Present illness Narrative* Jacobojanet Brown, DPM - 09/07/2024 2:10 PM EDT Patient: Dai العلي : 1945 PCP: Shay Roca DO SUBJECTIVE Pt presents today for follow [...] in length and thickness digits 1-10 Jacobo Brown DPM documented in this encounterCenterpoint Medical [id number] Evaluation note* Diagnosis Onset Date Resolution Status Admit Date Primary osteoarthritis, right shoulder acuteJune 2024 9:38amRight shoulder tendonitisacuteJune 2024 9:38am Tear of right supraspinatus tendonacuteJune 2024 9:38amBarrett's esophagus without dysplasiaacuteJuly 2024 8:36amHypercholesterolemiaacuteJuly 2024 8:36amLung nodule, multipleacuteJuly 2024 8:36amMucopurulent chronic bronchitisacuteJuly 2024 8:36amNicotine addictionacuteJuly 2024 8:36amPrimary hypertensionacuteJuly 2024 8:36amScreening PSA (prostate specific antigen)acuteJuly 2024 8:36amTubular adenoma of colonacuteJuly 2024 8:36amWellness examinationnoneactiveJuly 2024 8:36am [facility] Work Phone: 1(874) 906-520304-16-2025 History of Present illness Narrative* Jacobo Brown DPM - 07/11/2024 3:10 PM EDT Patient: Dai العلي : 1945 PCP: Shay Roca MD SUBJECTIVE Pt presents today for follow [...] possible bio Pro implant if symptomsreturn Jacobo Brown DPM documented in this encounterCenterpoint Medical [id number] History of Present illness Narrative* Jacobo Brown DPM - 06/27/2024 4:40 PM EDT Patient: Dai العلي : 1945 PCP: Shay Roca MD SUBJECTIVE This is a 79 y.o. [...] and thickness digits 1 through 10 Jacobo Brown DPM documented in this encounterCenterpoint Medical [id number] History of Present illness Narrative* Jacobo Brown DPM - 06/27/2024 4:40 PM EDT Patient: Dai العلي : 1945 PCP: Shay Roca MD SUBJECTIVE This is a 79 y.o. [...] and thickness digits 1 through 10 Jacobo Brown DPM documented in this encounterCenterpoint Medical CenterXittwyiggn44-75-6435 Evaluation note* Diagnosis Onset Date Resolution Status Admit Date Nicotine addiction [facility]Southern [facility] Centerch 2024 8:13amPrimary hypertensionacuteMaych 2024 8:13am Right shoulder painacuteMaych 2024 8:13amRotator cuff tendonitisacuteMaych 2024 8:13amPrimary osteoarthritis, right shoulderacuteJune 2024 9:38amRight shoulder tendonitisacuteJune 2024 9:38amTear of right supraspinatus tendonacuteJune 2024 9:38am [facility] Work Phone: 1(497) 680-640702-18-2025 Evaluation note* Diagnosis Onset Date Resolution Status Admit Date Primary hypertension acuteFebruary 2024 8:28amAcute bronchitis due to other specified organisms noneactiveFebruary 2024 8:28amNicotine addictionacuteMarch 2024 8:13amPrimary hypertensionacuteSouthern Ocean Medical Centerch 2024 8:13amRight shoulder painacute March 2024 8:13amRotator cuff tendonitisacuteMarch 2024 8:13am [facility] Work Phone: 1(580) 240-495012-11-2024 Evaluation note* Diagnosis Onset Date Resolution Status Admit Date Mucopurulent chronic bronchitis acuteDecember 2023 8:46amNicotine addictionacuteMarch 07, 2024 8:46am Primary hypertensionacuteMarch 07, 2024 8:46amRight shoulder painacute March 07, 2024 8:46amRotator cuff tendonitisacuteDeceer 2023 8:46am [facility] Work Phone: 1(437) 844-442511-06-2024 History of Present illness Narrative* Alex Garcia [...] for a Clarafix procedure. documented in this encounterCenterpoint Medical CenterEuatsjczgx43-67-2777 Evaluation note* Encounter Date Diagnosis Assessment Notes Treatment Notes Treatment Clinical Notes Dec, Hyperlipidemia type II (ICD-10 - E78.01) Instructed on diet and exercise.Discussed the beneficial effects of lowering cholesterol in reducing the risk for cerebrovascular and cardiovascular disease. Dec,rimary hypertension (ICD-10 - I10)This patient is instructed to consume a healthy, low-fat, low-salt diet. They are also encouraged to continue exercise to achieve/maintain a normal BMI. Patient is instructed on home BP measurements: - rest for 5 minutes w/o talking- positioned w/ feeton floor and arm supported- average best 2/3 readings w/ goal < 135/85 Dec,igarette nicotine dependence without complication (ICD-10 - F17.210)This patient has been encouraged to quit tobacco use immediately. They are aware of the hazards associated with tobacco use, including but not limited to respiratory infections, vascular disease and cancers. Dec,Lung nodule, multiple (ICD-10 - R91.8)Serial LDCT completed 12/2021 w/o suspicious nodules Due for annual LDCT Scheduled for later this month Counseled on smoking cessation Dec,arrett's esophagus without dysplasia (ICD-10 - K22.70)Not sure when next EGD scheduled. Dec,Mucopurulent chronic bronchitis (ICD-10 - J41.1)Instructed on smoking cessation. No need for inhalers. No ER visits for AECOPD Dec,Vasomotor rhinitis (ICD-10 - J30.0)Reassure, chronic w/o cure. 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) Dec,enign prostatic hyperplasia with lower urinary tract symptoms (ICD- 10 - N40.1)Symptoms tolerable, yearly PSA Dec,Tubular adenoma of colon (ICD-10 - D12.6)Not sure when next scope scheduled Will review notes Denies change in appetite, bowel habits, melena or hematochezia [facility] Other 04-27-2023 Evaluation note* Encounter Date Diagnosis Assessment Notes Treatment Notes Treatment Clinical Notes Jun, Hyperlipidemia type II (ICD-10 - E78.01) Instructed on diet and exercise with continued statin therapy.Discussed the beneficial effects of lowering cholesterol in reducing the risk for cerebrovascular and cardiovascular disease. Jun,Wellness examination (ICD-10 - Z00.00)Healthy diet and exercise. Reviewed age-appropriate preventive testing recommended. Jun,rimary hypertension (ICD-10 - I10)This patient is instructed to consume a healthy, low-fat, low-salt diet. They are also encouraged to continue exercise to achieve/maintain a normal BMI. Patient is instructed on home BP measurements: - rest for 5 minutes w/o talking- positioned w/ feeton floor and arm supported- average best 2/3 readings w/ goal < 135-85 Jun,igarette nicotine dependence without complication (ICD-10 - F17.210)This patient has been encouraged to quit tobacco use immediately. They are aware of the hazards associated with tobacco use, including but not limited to respiratory infections, vascular disease and cancers. Yearly LDCT Jun,Lung nodule, multiple (ICD-10 - R91.8)Serial LDCT completed 12/2021 w/o suspicious nodules No suspicious nodules, yearly LDCT for lung cancer screening Encouraged to stop smoking Jun,arrett's esophagus without dysplasia (ICD-10 - K22.70)Healthy diet, avoid NSAIDs, PPI daily. Surveillance EGD per GI He denies persistent heartburn or dysphagia Jun,enign prostatic hyperplasia with lower urinary tract symptoms (ICD- 10 - N40.1)Symptoms tolerable, denies dysuria or hematuria Jun,Tubular adenoma of colon (ICD-10 - D12.6)UTD w/ surveillance scopes, next due in 4 years Denies appetite or bowel habit changes Jun,Screening PSA (prostate specific antigen) (ICD-10 - Z12.5) Jun,High risk medication use (ICD-10 - Z79.899) Jun,OtherPersonalized health advice was given to the beneficiary including [...] and exercise. Reviewed age-appropriate preventive testing recommended. [facility] Other 03-30-2023 Evaluation note* Encounter Date Diagnosis Assessment Notes Treatment Notes Treatment Clinical Notes May, Tear of right supraspinatus tend on (ICD-10 - M75.101) May,Right shoulder tendinitis (ICD-10 - M77.8)Extensive discussion about current condition and treatment options available. This appears to be pain secondary to subacromial bursitis / rotator cuff tendonitis. We discussed and demonstrated gentlemotion exercise and rotator cuff strengthening exercise. Discussed the use of non-steroidal anti-inflammatory medication. A 2/1cc marcaine / kenalog cortisone injection was performed into the subacromial space under sterile technique. Patient tolerated the injection well with no adverse reaction. I suspect there may be recurrent tear progressing. Discussed limiting heavy activity away from the body. 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 Mar,rimary hypertension (ICD-10 - I10)This patient is instructed to consume a healthy, low-fat, low-salt diet. They are also encouraged to continue exercise to achieve/maintain a normal BMI. Mar,hronic bronchitis, mucopurulent (ICD-10 - J41.1)Mucinex for cough, instructed on smoking cessation. No ER visits for AECOPD. 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 Healthy diet and limit alcohol to 2 daily. Mar,enign prostatic hyperplasia with lower urinary tract symptoms (ICD- 10 - N40.1)Symptoms tolerable, yearly PSA and TATUM Mar,Lung nodule, multiple (ICD-10 - R91.8)Smoking cessation discussed. LDCT LR 2 - 12/2021 Yearly LDCT chest to r/o cancer. Mar,Tubular adenoma of colon (ICD-10 - D12.6)Colonoscopy 08/2021 - repeat 5 years Mar,arrett's esophagus without dysplasia (ICD-10 - K22.70)Diet instructions, PPI therapy and surveillance EGD EGD 08/2021 w/o dysplasia, repeat 3 years Mar,igarette nicotine dependence without complication (ICD-10 - F17.210)This patient has been encouraged to quit tobacco use immediately. They are aware of the hazards associated with tobacco use, including but not limited to respiratory infections, vascular disease and cancers. [facility] Other 06-30-2022 Note [id number]:[id number] Hospital Discharge instructions Patient [...] Follow these instructions at home: Medicines Take myqf-hsh-mmdcrza and prescription medicines only as told by [...] powder, vinegar, hot sauces, and barbecue sauce. ?[place] fruit juices and citrus fruits, such as oranges, vikas, and limes. ?Tomato-based foods, such as red sauce, chili, salsa, and pizza with red sauce. ?Fried and fatty foods, such as donuts, zimbabwean fries, potato chips, and high-fat dressings. ?High-fat [...] 04/21/2005 Document Revised: 11/03/2018 Document Reviewed: 11/03/2018 [employer] Patient Education 2020 [employer]. 09/23/2021 13:01:51 Upper Endoscopy, Adult, Care After [...] what activities are safe for you. Take sxeb-boj-etktnxo and prescription medicines only as told by [...] 09/12/2012 Document Revised: 09/05/2018 Document Reviewed: 08/14/2018 [employer] Patient Education 2020 [employer]. 09/23/2021 13:01:51 Diverticulosis Diverticulosis Diverticulosis is a [...] overweight. Not getting enough exercise. Smoking. Taking ytbm-bdu-zhznkyx pain medicines, like aspirin and ibuprofen. Having [...] health care provider or your diet and food and nutrition services supervisor (dietitian). ?Take a fiber supplement or probiotic, if your health care provider approves. Take lhdx-pbg-kknfrjp and prescription medicines only as told by [...] 12/09/2004 Document Revised: 02/24/2018 Document Reviewed: 01/31/2017 [employer] Patient Education 2020 [employer]. 09/23/2021 13:01:51 Colon Polyps Colon Polyps Polyps [...] 12/08/2004 Document Revised: 06/29/2018 Document Reviewed: 06/29/2018 [employer] Patient Education 2020 [employer]. 09/23/2021 13:01:51 Colonoscopy, Care After Surgery Salam (Custom) Colonoscopy Care After Surgery Please read the instructions outlined below and refer to this sheet in the next few weeks. These discharge instructions provide you with general information on [facility] Your [facility] may also give you [...] Up Care 09/03/2021 13:25:06 With:Marlys LOPEZ Address: [address] [place] [address] Business (1) When: Unknown Comments:Call for any problems.Office will call you if follow up is needed. [facility]06-09-2022 Evaluation note* Encounter Date Diagnosis Assessment Notes Treatment Notes Treatment Clinical Notes Aug, Tear of right supraspinatus tend on (ICD-10 - M75.101) Aug,steoarthritis of right acromioclavicular joint (ICD-10 - M19.011) Aug,ther specified postprocedural states (ICD-10 - Z98.890)Patient is progressing well. Continue motion and strengthening exercises [facility]. Instructed on proper body mechanics to avoid repeat injury. Call with questions/concerns. [facility] Other 01-13-2022 Evaluation note* Encounter Date Diagnosis Assessment Notes Treatment Notes Treatment Clinical Notes Mar, Tear of right supraspinatus tend on (ICD-10 - M75.101) Mar,steoarthritis of right acromioclavicular joint (ICD-10 - M19.011) Mar,cute pain of right shoulder (ICD-10 - M25.511) Mar,ther specified postprocedural states (ICD-10 - Z98.890) Patient instructed on discontinuing the sling. Begin gentle acitve assisted motion exercise including table and wall walks. This was demonstrated. Instructed on progression of motion exercise in flexion, internal rotation and external rotation. Instructed on use of heat to help with motion. Stressed importance of not over doing activity to avoid repair failure. [facility] Other 11-04-2021 Evaluation note* Encounter Date Diagnosis Assessment Notes Treatment Notes Treatment Clinical Notes Jan, Tear of right supraspinatus tend on (ICD-10 - M75.101) This is a complex rotator cuff tear with retraction and tissue loss that will be difficult to repair, however, I think it is reasonalbe to proceed with surgery that may be helpful. The potential for a less than optimal outcome is high. Patient understands this and would like to proceed. Jan,Osteoarthritis of right acromioclavicular joint (ICD-10 - M19.011) Jan,cute pain of right shoulder (ICD-10 - M25.511) Jan,re-op examination (ICD-10 - Z01.818) [facility] Other Evaluation + Plan note Future Appointments Appointment Date:09/23/2021 12:20:00 PM Scheduled Provider: Location:[facility] Appointment Type:Surgery FT [facility] Evaluation noteNo [facility] [employer] Other Evaluation noteNo assessment information available [facility] Work Phone: Evaluation note* Diagnosis Onset Date Resolution Status Primary hypertension acutePrimary osteoarthritis, right shoulderacuteRight shoulder painacutePrimary osteoarthritis, right shoulderacuteRight shoulder tendonitisacuteTear of right supraspinatus tendonacuteBarrett's esophagus without dysplasiaacute HypercholesterolemiaacuteLung nodule, multipleacuteMucopurulent chronic bronchitisacuteNicotine addictionacutePrimary hypertensionacuteTubular adenoma of colonacuteScreening PSA (prostate specific antigen)noneactiveWellness examinationnoneactive [facility] Work Phone: Evaluation note* Diagnosis Onset Date Resolution Status Mucopurulent chronic bronchitis acuteNicotine addictionacutePrimary hypertensionacutePrimary osteoarthritis, right shoulderacuteRight shoulder painacute [facility] Work Phone: Evaluation note* Diagnosis Onset Date Resolution Status Mucopurulent chronic bronchitis acuteNicotine addictionacutePrimary hypertensionacutePrimary osteoarthritis, right shoulderacuteRight shoulder painacuteChronic vasomotor rhinitisacute Hypertrophy, nasal, turbinateacuteNicotine addictionacute [facility] Work Phone: Evaluation note* Diagnosis Chronic vasomotor rhinitis- Primary [facility] Diagnosis DJD (degenerative joint disease), ankle and foot, right- Primary Hallux rigidus of right foot Acquired deformity of right toe Capsulitis of metatarsophalangeal (MTP) joint of right foot Pain due to onychomycosis of toenails of both feet [facility] Diagnosis Hallux rigidus of right foot- Primary Capsulitis of metatarsophalangeal (MTP) joint of right foot DJD (degenerative joint disease), ankle and foot, right [facility]* Diagnosis Capsulitis of metatarsophalangeal (MTP) joint of right foot- Primary Hallux rigidus of right foot DJD (degenerative joint disease), ankle and foot, right Pain due to onychomycosis of toenails of both feet documented [facility] this [facility] Narrative - Reported* Type Description Date Medical History high blood pressure Medical 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 [facility] [employer] Other Hiseaur general Narrative - ReportedNort [employer] Other Hisdbzh general Narrative - Reported* Type Description Date Medical History high blood pressure Medical 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 Surgical HistoryRight shoulder arthroscopy with supraspinatus rotator cuff repair[using one 5.5 tape loaded swivel lock medial row, one 5.5 swivel lock lateral row/Subacromial decompression/Extensive debridement inferior labral tear DOS 02/28/2112/2021 [facility] [employer] Other [place] general Narrative - Reported* Type Description Date Medical History hypertension Medical HistoryArthritisMedical Historypanic attack due to PTSDMedical History memory changeMedical HistorySIADHMedical HistoryhyperlipidemiaMedical History adenomatous polyp of descending colonMedical Historytubular adenoma of colon Medical HistoryanemiaMedical Historybenign prostatic hyperplasia with nocturia Medical Historypartial tear of right subscapularis tendonMedical Historytear of right supraspinatus tendonMedical Historylung nodule, multipleMedical History hyponatremiaMedical HistoryfatigueMedical HistoryBarrett's esophagus without dysplasiaSurgical Historyosteomyelitis right femur bone tumorSurgical History Right shoulder arthroscopy with supraspinatus rotator cuff repair[using one 5.5 tape loaded swivel lock medial row, one 5.5 swivel lock lateral row/Subacromial decompression/Extensive debridement inferior labral tear DOS 02/28/2112/2021 Hospitalization Historysee above [facility] Other Hospital course Narrative No data available for this section [facility] Discharge instructions No data available for this section [facility] Discharge instructionsAmbulatory Orders* Referral to ENT Time Frame: 01/24/24, Location: None Selected [facility] Work Phone: Progress note No data available for this section [facility] for [facility] (narrative)No reason for referral information availableUniversity [facility] Work Phone: Summary Purpose Family History No Family History Records Found Relationship Condition Age at Onset Recorded Date/T de father Status post three ve ssel coronary artery bypass Unknown Not SpecifiedMalignant neoplasmUnknown Relationship Condition Age at Onset Recorded Date/T de Not Specified Malignant neoplasm Unknown DeceasedUnknownfatherDeceasedUnknown Relationship Condition Age at Onset Recorded Date/T de mother Malignant neoplasm Unknown DeceasedUnknownfatherDeceasedUnknown Advance Directives No Advanced Directives Records Found [facility] Direct[facility] Response Recorded Date/ Time [employer] Direct[employer] No November 12, 2020 8:28am Advance Directive Response Recorded Date/ Time Advance Direct[employer] No November 12, 2020 7:28am Chief Complaint and Reason for Visit Chief Complaint 3 Month Follow Up Shot in Shoulder Chief Complaint Shot in Shoulder op sp rt shoulder pain requested injection 4 month follow upReason for VisitPrimary hypertension Primary osteoarthritis, right shoulder Right shoulder [...] Chief Complaint cordisone shot in oulder medical concernsReason for VisitMucopurulent chronic bronchitis Nicotine addiction Primary hypertension Primary osteoarthritis, right shoulder Right shoulder pain Chief Complaint cordisone shot in [place] medical concernsReason for VisitMucopurulent chronic bronchitis Nicotine addiction Primary hypertension Primary [...] 2024 8:46am Rotator cuff tendonitis March 07, 024 8:46am Chief Complaint Admit Date cough [...] 2024 8:13am Primary osteoarthritis, right shoulder J une 2024 9:38am Right shoulder tendonitis September 04 9:38am Tear of right supraspinatus tendon September 04, 2024 9:38am Chief Complaint Admit Date OP SP RT SHOULDER PAIN September 04, 2024 9 :38am M77.8 - Other enthesopathies, not elsewh ere classi September 04, 2024 9:44am wellness October 25, 2024 8:36 am Reason for Visit Admit Date Primary osteoarthritis, right shoulder J une 2024 9:38am Right shoulder tendonitis September 04 [...] Wellness examination October 25, 2024 8:3 6am Chief Complaint Admit Date wellness October 25, 2024 8:36 am OP SP RT SHOULDER PAIN WANTS INJ Septemb er 2024 11:27am Reason for Visit Admit Date 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 Ju ly 2024 [...] Wellness examination October 25, 2024 8:3 6am Primary osteoarthritis, right shoulder S eptember 2024 11:27am Right shoulder tendonitis December 04, 2024 11:27am Tear of right supraspinatus tendon [facility] 2024 11:27am Chief Complaint Admit Date wellness October 25, 2024 8:36 am OP SP RT SHOULDER PAIN WANTS INJ Septemb er 2024 11:27am OP SP RT SHOULDER PAIN January 22 10:59am Reason for Visit Admit Date 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 Ju ly 2024 [...] Wellness examination October 25, 2024 8:3 6am Primary osteoarthritis, right shoulder S eptember 2024 11:27am Right shoulder tendonitis December 04, 2024 11:27am Tear of right supraspinatus tendon Septe er 2024 11:27am Primary osteoarthritis, right shoulder O ctober 2024 10:59am Right shoulder tendonitis January 22, 2025 10:59am Tear of right supraspinatus tendon Octob er 2024 10:59am Chief Complaint Admit Date OP SP RT SHOULDER PAIN WANTS INJ Septemb er 2024 11:27am OP SP RT SHOULDER PAIN January 22 10:59am 3 month F/U January 31, 2025 9 :02am Reason for Visit Admit Date Primary osteoarthritis, right shoulder S eptember 2024 11:27am Right shoulder tendonitis December 04, 2024 11:27am Tear of right supraspinatus tendon Septe [facility] 2024 11:27am Primary osteoarthritis, right shoulder O ctober 2024 10:59am Right shoulder tendonitis January 22, 2025 10:59am Tear of right supraspinatus tendon Octob er 2024 10:59am 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 No vem2024 9:02am Hypercholesterolemia January 31, 2025 9:02am Lung nodule, multiple January 31, 2025 9:02am Mucopurulent chronic bronchitis January 31, 2025 9:02am Nicotine addiction January 31, 2025 9 :02am Primary hypertension January 31, 2025 9:02am Tubular adenoma of colon January 31, 2 025 9:02am Chief Complaint Admit Date OP SP RT SHOULDER PAIN WANTS INJ Septemb er 2024 11:27am OP SP RT SHOULDER PAIN January 22 10:59am 3 month F/U January 31, 2025 9 :02am M19.011 January 31, 2025 4 :01pm Additional Source Comments REASON FOR VISIT (unrecogniz ed section and content) ReasonCommentsVasomotor RhinitisReasonCommentsToe PainRT GT TOEReasonComments Follow-upInj checkReasonCommentsToenail CareNon dm nail care Care Team (unrecognized sect ion and content) Team Status: Active Member Role Status Gaby Roca , DO Primary Care Provider Active Team Status: Inactive Member Role Status Gaby Roca DO Primary Care Provide r, Attending Provider Active Start: November 07, 2023 End: November 07, 2023 Team Status: Inactive Member Role Status Gaby Roca DO Primary Care Provide r, Attending Provider Active Start: January 24, 2024 End: January 24, 2024 Team Status: Active Member Role Status Gaby Roca DO Primary Care Provide r, Attending Provider Active Start: October 10, 2023 Team Status: Inactive Member Role Status Gaby Roca DO Primary Care Provider Active Hawa Starkey MDAttsteph ProviderActive Team Status: Inactive Member Role Status Gaby Roca DO Attending Provider Active Sta rt: April 07, 2023 End: April 07, 2023 Team Status: Inactive Member Role Status Gaby Roca DO Primary Care Provide r, Attending Provider Active Start: May 18, 2023 End: May 18, 2023 Team Status: Inactive Member Role Status Gaby Roca DO Primary Care Provider Active Start: June 02, 2023 End: June 02, 2023Thraman Starkey MDActiveStart: June 02, 2023 End: June 02, 2023Renee Lawrence NP-CAttending ProviderActiveStart: June 02, 2023 End: June 02, 2023 Team Status: Active Member Role Status Gaby Roca DO Primary Care Provide r, Attending Provider Active Start: June 29, 2023 Team Status: Inactive Member Role Status Gaby Roca DO Primary Care Provide r, Attending Provider Active Start: August 05, 2023 End: August 05, 2023 Team Status: Inactive Member Role Status Gaby Roca DO Primary Care Provide r, Attending Provider Active Start: March 07, 2024 End: March 07, 2024 Team Status: Inactive Member Role Status Gaby Roca DO Primary Care Provide r, Attending Provider Active Start: May 15, 2024 End: May 15, 2024 Team Status: Inactive Member Role Status Gaby Roca DO Primary Care Provide r, Attending Provider Active Start: June 12, 2024 End: June 12, 2024Team MemberRelationshipSpecialtyStart DateEnd Date Shay Roca MD [address] [place] [id number] PCP - [facility]02/01/24 Team Status: Inactive Member Role Status Dates Shay Roca DO Primary Care Provider Active Start: July 03, 2024 End: July 03matilde Pierre - [facility] , CHCAttending ProviderActiveStart: July 03, 2024 End: July 03, 2024Team MemberRelationshipSpecialtyStart DateEnd Date Shay Roca MD PCP - [facility]02/01/24Team MemberRelationshipSpecialtyStart Date End Date Shay Roca MD PCP - [facility]02/01/24 Team Status: Inactive Member Role Status Dates Shay Roca DO Primary Care Provider Active Start: September 04, 2024 End: September 04, 2024Thraman Starkey MDAttending ProviderActiveStart: September 04, 2024 End: September 04, 2024 Team Status: Active Member Role Status Dates Hawa Starkey MD Attending Provider Active Star t: September 04, 2024 Maribell Giraldo Care ProviderActiveStart: September 04, 2024 Team Status: Inactive Member Role Status Dates Hawa Starkey MD Attending Provider Active Star t: September 04, 2024 End: September 04Maribell Joseph Care ProviderActiveStart: September 04, 2024 End: September 04, 2024Team MemberRelationshipSpecialtyStart DateEnd Date Shay Roca DO [address] [place] [id number] PCP - [facility]02/01/24Team MemberRelationshipSpecialtyStart Date End Date Shay Roca DO [address] [facility] [place] [phone] [facility] Team Status: Inactive Member Role Status Dates Shay Roca DO Primary Care Provider Active Start: October 25, 2024 End: October 25ented Roca , DOAttending ProviderActiveStart: October 25, 2024 End: October 25, 2024 Team Status: Active Member Role Status Dates Shay Roca DO Primary Care Provider Active Start: October 29, 2024 Shay Roca , DOAttending ProviderActiveStart: October 29, 2024 Team Status: Inactive Member Role Status Dates Shay Roca DO Primary Care Provider Active Start: December 04, 2024 End: December 04omas Olexa , MDAttending ProviderActiveStart: December 04, 2024 End: December 04, 2024 Team Status: Active Member Role/Relationship Status Dates Shay Roca DO Primary Care Provider Active Team Status: Inactive Member Role/Relationship Status Dates Shay Roca DO Primary Care Provider Active Start: October 25, 2024 End: October 25ented Roca , DOAttending ProviderActiveStart: October 25, 2024 End: October 25, 2024 Team Status: Active Member Role/Relationship Status Dates Shay Roca DO Primary Care Provider Active Start: October 29, 2024 Shay Roca DOAttending ProviderActiveStart: October 29, 2024 Team Status: Inactive Member Role/Relationship Status Dates Shay Roca DO Primary Care Provider Active Start: December 04, 2024 End: December 04omas Olexa , MDAttending ProviderActiveStart: December 04, 2024 End: December 04, 2024 Team Status: Inactive Member Role/Relationship Status Dates Shay Roca DO Primary Care Provider Active Start: January 22, 2025 End: January 22omas Olexa , MDAttending ProviderActiveStart: January 22, 2025 End: January 22, 2025 Team Status: Inactive Member Role/Relationship Status Dates Shay Roca DO Primary Care Provider Active Start: December 04, 2024 End: December 04omas Olexa , MDAttending ProviderActiveStart: December 04, 2024 End: December 04, 2024 Team Status: Inactive Member Role/Relationship Status Dates Shay Roca Primary Care Provider Active Start: January 22, 2025 End: January 22, 2025ThSebastián Pederson ProviderActiveStart: January 22, 2025 End: January 22, 2025 Team Status: Inactive Member Role/Relationship Status Dates Shay Roca Primary Care Provider Active Start: January 31, 2025 End: January 31enkenndayday Roca DOValeriosteph ProviderActiveStart: January 31, 2025 End: January 31, 2025 Team Status: Inactive Member Role/Relationship Status Dates Shay Roca Primary Care Provider Active Start: January 31, 2025 End: January 31Sebastián Pederson ProviderActiveStart: January 31, 2025 End: January 31, 2025 (unrecognized sect ion and content) No Status Records FoundNo Status Records FoundNo Status Records FoundNo Status Records Found INFORMATION SOURCE (unrecogn ized section and content) DATE CREATED AUTHOR 11/21/2021 [facility] DATE CREATED AUTHOR AUTHOR'S ORGANIZ ATION 07/30/2022 [facility] DATE CREATED AUTHOR AUTHOR'S ORGANIZ ATION 09/10/2024 [facility] DATE CREATED AUTHOR AUTHOR'S ORGANIZ ATION 02/02/2025 [facility] Goals (unrecognized section and content) Goals [...] BE BASED ON THE PRIMARY CLINICAL RECORDS. [facility] [employer] [facility]. provides no warranty or guarantee of the accuracy or completeness of information in this document.
--- NOTE | 2025-02-18 15:23 | PM.PRESUREVA ---
History of Present Illness History of Present Illness Chief complaint: Right Shoulder Pain Narrative: Patient presents for presurgical testing accompanied by his . Please see HPI from Dr. Swan dated February 11, 2025. Review of Systems ROS Narrative REVIEW OF SYSTEMS: Negative except as stated in HPI, ten or more systems reviewed. Constitutional: No fever, chills, weakness ENT: No sore throat or epistaxis Cardiovascular: No edema, chest pain, palpitations, or activity intolerance Respiratory: No shortness of breath, cough, or wheezing Gastrointestinal: No abdominal pain, constipation, diarrhea, or vomiting Genitourinary: No dysuria or hematuria Neurological: No numbness, tingling, weakness, or headache Psychiatric: No mood changes [facility] Medical History (Updated 02/18/25 @ 15:20 by Mayi Pond NP) Bone tumor ?D49.2 - Neoplasm of unspecified behavior of bone, soft tissue, and skin (ICD-10) Snores ?R06.83 - Snoring (ICD-10) Headache ?R51.9 - Headache, unspecified (ICD-10) High cholesterol ?E78.00 - Pure hypercholesterolemia, unspecified (ICD-10) Edentulism ?K08.109 - Complete loss of teeth, unspecified cause, unspecified class (ICD-10) Hypertension ?I10 - Essential (primary) hypertension (ICD-10) Barretts esophagus ?K22.70 - 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 (ICD-10) Lung nodule ?R91.1 - Solitary pulmonary nodule (ICD-10) Chronic bronchitis ?J42 - Unspecified chronic bronchitis (ICD-10) Hyponatremia ?E87.1 - Hypo-osmolality and hyponatremia (ICD-10) Anemia ?D64.9 - Anemia, unspecified (ICD-10) BPH (benign prostatic hyperplasia) ?N40.0 - Benign prostatic hyperplasia without lower urinary tract symptoms (ICD-10) Polyp of colon ?K63.5 - Polyp of colon (ICD-10) PTSD (post-traumatic stress disorder) ?F43.10 - Post-traumatic stress disorder, unspecified (ICD-10) Panic attack ?F41.0 - Panic disorder [episodic paroxysmal anxiety] (ICD-10) 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 - Syndrome of inappropriate secretion of antidiuretic hormone (ICD-10) Hypercholesterolemia ?E78.00 - Pure hypercholesterolemia, unspecified (ICD-10) Nasal turbinate hypertrophy ?J34.3 - Hypertrophy of nasal turbinates (ICD-10) Chronic vasomotor rhinitis ?J30.0 - Vasomotor rhinitis (ICD-10) Rotator cuff tendinitis ?M75.80 - Other shoulder lesions, unspecified shoulder (ICD-10) Osteoarthritis of right shoulder ?M19.011 - Primary osteoarthritis, right shoulder (ICD-10) Right shoulder pain ?M25.511 - Pain in right shoulder (ICD-10) Surgical History (Updated 02/18/25 @ 14:56 by Mayi Pond NP) History of colonoscopy ?Z98.890 - Other specified postprocedural states (ICD-10) History of esophagogastroduodenoscopy (EGD) ?Z98.890 - Other specified postprocedural states (ICD-10) H/O arthroscopy of shoulder ?Z98.890 - Other specified postprocedural states (ICD-10) Family History (Updated 02/18/25 @ 15:13 by Mayi Pond NP) Other Family history of cancer Hyponatremia Social History (Updated 02/18/25 @ 14:48 by Mayi Pond NP) Within the past year, how often did you have a drink containing alcohol: 4 or more times a week Within the past year, how many standard drinks containing alcohol did you have on a typical day: 3 or 4 Smoking status: Current every day smoker What tobacco products do you use: cigarettes Packs per day: 1 Years smoked: 40 Smoking pack-years: 40.00 Non-prescribed substance use: denies use Previous occupational history: Retired /[employer]ired [employer] Highest level of school completed/degree received: high school graduate Meds Home Medications and Allergies Home Medications ?Medication ?Instructions ?Recorded ?Confirmed ?Type amlodipine 5 mg-benazepril 40 mg 1 cap PO DAILY 02/18/25 02/18/25 History capsule ascorbic acid (vitamin C) 500 mg 500 mg PO DAILY 02/18/25 02/18/25 History capsule calcium 315 mg (as 1 tab PO DAILY 02/18/25 02/18/25 History citrate)-vitamin D3 6.25 mcg (250 unit) tablet (Citracal + Vitamin D Maximum) cholecalciferol (vitamin D3) 25 1,000 unit PO DAILY 02/18/25 02/18/25 History mcg (1,000 unit) capsule coffee extract 100 mg-phosphatidyl 1 cap PO DAILY 02/18/25 02/18/25 History serine 100 mg capsule (Neuriva Original) echinacea 400 mg capsule 400 mg PO DAILY 02/18/25 02/18/25 History geriatric multivitamin-min 1 tab PO DAILY 02/18/25 02/18/25 History diwxjhxobko-ifxpmaqae-oss C-Mn 500 1 cap PO DAILY 02/18/25 02/18/25 History mg-400 mg capsule (Glucosamine Chondroitin Maximum Strength) milk thistle 175 mg capsule 175 mg PO DAILY 02/18/25 02/18/25 History potassium 99 mg tablet 99 mg PO DAILY 02/18/25 02/18/25 History pyridoxine (vitamin B6) 100 mg 100 mg PO DAILY 02/18/25 02/18/25 History tablet sodium chloride 1 gram tablet 1,000 mg PO DAILY 02/18/25 02/18/25 History turmeric 400 mg capsule 400 mg PO DAILY 02/18/25 02/18/25 History vit C 250 mg-vit E 90 mg-zinc 40 1 tab PO DAILY 02/18/25 02/18/25 History mg-copper 1 [id number]-lpemeq-oydslv capsule (PreserVision AREDS-2) vitamin B complex 1 tab PO DAILY 02/18/25 02/18/25 History Allergies Allergy/AdvReac Type Severity Reaction Status Date / Time ezetimibe Allergy muscle Verified 02/18/25 14:47 aches Iodinated Contrast Media Allergy homicidal Verified 02/18/25 15:12 paraquat pesticide Allergy nerve Uncoded 02/18/25 14:46 poison Exam Narrative Exam Narrative: Constitutional: Awake, alert, comfortable, well-appearing, nontoxic, interactive, vital signs as charted Head: Normocephalic, atraumatic Neck: Supple, normal appearance, normal range of motion, no meningeal signs, no lymphadenopathy Respiratory: No respiratory distress, breath sounds clear Cardiovascular: Regular rate and rhythm, strong and regular heart tones Abdomen: Nontender, normal bowel sounds, soft Skin: No rashes or induration, no lesions, only visible skin inspected Neuro: No neurological deficits, normal sensation Psychiatric: Oriented ?3, normal affect Assessment and Plan Assessment and Plan (1) Right shoulder pain: (2) Osteoarthritis of right shoulder: Plan Right reverse total shoulder arthroplasty scheduled with Dr. Swan March 07, 2025.
[2025-02-18 15:33] LABS: Hematocrit 36.9 % (42.0-54.0); Hemoglobin 12.8 g/dL (14.0-18.0); Immature Granulocytes Abs Auto 0.04 10^3/uL (0.00-0.03); Immature Granulocytes Pct Auto 0.5 % (0.0-0.5); Lymphocytes Absolute Auto 1.8 10^3/uL (1.2-3.8); Mean Corpuscular HGB Conc 34.7 g/dL (29.9-35.2); Mean Corpuscular Hemoglobin 32.6 pg (25.9-34.0); Mean Corpuscular Volume 93.9 fL (80.0-94.0); Platelet Count 288 10^3/uL (150-450); Red Blood Count 3.93 10^6/uL (4.70-6.10); White Blood Count 8.0 10^3/uL (4.0-11.0)
[2025-02-18 15:48] LABS: Alanine Aminotransferase 48 U/L (16-63); Albumin Globulin Ratio 1.1; Albumin Level 4.0 g/dL (3.4-5.0); Alkaline Phosphatase 111 U/L (46-116); Anion Gap 13.3; Aspartate Amino Transferase 32 U/L (15-37); Blood Urea Nitrogen 17.0 mg/dL (7.0-18.0); Calcium 8.7 mg/dL (8.5-10.1); Carbon Dioxide 23.8 mmol/L (21.0-32.0); Chloride 98 mmol/L (98-107); Estimated GFR (African America >60 (>=60 mL/min/1.73m^2); Estimated GFR (Non-African Ame >60 (>=60 mL/min/1.73m^2); Globulin 3.5 g/dL; Glucose 83 mg/dL (74-106); Potassium 4.1 mmol/L (3.5-5.1); Sodium 131 mmol/L (136-145); Total Protein 7.5 g/dL (6.4-8.2)
== END 2025-02-18 14:14 | disposition home or self-care (01) ==
PROVIDERS: PCP Internal Medicine; Visit Provider Physician Assistant
DX: Z01.812 Encounter for preprocedural laboratory examination (principal); Z01.810 Encounter for preprocedural cardiovascular examination; Z01.818 Encounter for other preprocedural examination; M25.511 Pain in right shoulder
CPT/HCPCS: 36415; 80053; 85025; 93005; G0463

== ENCOUNTER 2025-02-28 07:14 | Outpatient (OUT) | payer OTHER, MEDICARE, SELFPAY ==
--- OUTSIDE RECORDS SUMMARY | 2025-02-25 03:19 | XMS_ITS | Continuity of Care Document ---
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 Role Phone Shay Pineda DO Primary Care Provider [phone] Jeff Grimaldo MD Attending Provider [phone] Shay Pineda DO Attending Provider [phone] Eloy Swan DO Attending Provider Care Teams [...] January 31, 2025 End: January 31raman Grimaldo JEANNETTEgeniesteph ProviderActiveStart: January 31, 2025 End: January 31, 2025 Visit Care Team Team Status: Inactive Member Role/Relationship Status Dates Shay Pineda DO Primary Care Provider Active Start: February 11, 2025 End: February 11, 2025Eloy Swan Attending ProviderActiveStart: February 11, 2025 End: February 11, 2025 Visit Care Team Team Status: Active Member Role/Relationship Status Dates Shay Pineda DO Primary Care Provider Active Start: February 18, 2025 Shay Pineda DOAttending ProviderActiveStart: February 18, 2025 Visit Care Team Team Status: Inactive Member Role/Relationship Status Dates Shay Pineda DO Primary Care Provider Active Start: February 20, 2025 End: February 20jada Pineda Attending ProviderActiveStart: February 20, 2025 End: February 20, 2025 Patient Care Team Team Status: Inactive Member Role/Relationship Status Dates Shay Pineda DO Primary Care Provider Active Start: February 25, 2025 End: February 25jada Pineda DOAttending ProviderActiveStart: February 25, 2025 End: February 25, 2025 Chief Complaint and Reason for Visit Chief Complaint Admit Date OP SP RT SHOULDER PAIN WANTS INJ Septemb er 2024 11:27am OP SP RT SHOULDER PAIN January 22 10:59am 3 month F/U January 31, 2025 9 :02am M19.011 January 31, 2025 4 :01pm CONSULT DR GRIMALDO February 11, 2025 7:47am Surgical Clearance February 20, 2025 2:50pm Blood pressure check February 25, 2025 8:04am Reason for Visit Admit Date Primary osteoarthritis, [...] 7:47am Tear of right supraspinatus tendon Novem 2024 7:47am Alcohol use February 20, 2025 2:50pm Hypercholesterolemia February 20, 2025 2:50pm Mucopurulent chronic bronchitis February 20, 2025 2:50pm Nicotine addiction February 20, 2025 2:50pm Primary hypertension February 20, 2025 2:50pm Primary osteoarthritis, right shoulder N ovember 2024 2:50pm Tear of right supraspinatus tendon Novem 2024 2:50pm Preop exam for internal medicine [facility] 2024 2:50pm Allergies, Adverse Reactions, Alerts Allergen Type Severity Reaction Last Updated Verified Status atorvastatin Allergy Unknown UNK February 20, 2025 2:53pm Yes Active Social History Smoking Status Status Start Date End Date Date of Observa tion Smokes tobacco daily (finding) March 05, 2021 8:32pm Observation Status Observation Response Date of Response Legal Sex [facility] (finding) [facility] 1945 [facility] History Relationship Condition Age at [...] right supraspinatus tendonFebruary 2023 10:33amUnknownActive HypercholesterolemiaMay 2023 9:46pmUnknownActiveAlcohol useNovember 2024 7:06amUnknownActivePrimary hypertensionFebruary 2023 10:30amUnknown ActiveBenign prostatic hyperplasia with lower urinary tract symptomsFebruary 2023 10:30amUnknownActiveLung nodule, multipleFebruary 2023 10:30am UnknownActiveSerial LDCT completed:No suspicious nodules: 12/2021, 12/2022, ight shoulder painDecember 2020 11:13pmUnknownActiveTubular adenoma of colonFebruary 2023 10:30amUnknownActiveChronic vasomotor rhinitis January 24, 2024 11:26amUnknownActiveRight shoulder tendonitisMarch 2023 12:10pmUnknownActiveInactive/Resolved Problems Problem Diagnosis/Recorded [...] 19, 2023 12:00am August 05, 2023 8:04amIpratropium [place] 21 mcg (0.03 %) spray,non-aerosol Jdowoakpifid1IFGIAAEKVBITDDWMoylq times dailyNovember 2023 12:00amJune 2024 9:27amadminister into each nostrilLisinopril 40 mg tabletDiscontinued 64KZULLmwxw919Sshdfggu 2023 12:37pmJuly 2024 8:27amHTNCefuroxime Axetil 500 mg kppzqpWruibw466XVAUAnpep zibur8241Mtfdi 2024 12:00amUnknown Ezetimibe 10 mg dwkzmhYmcatgegduws94AYWNCckxs84911Ycfyc 2024 11:00pmApril 2024 12:42pmEzetimibe 10 mg notdnqIsvbzcwqyewc84BCRJErzdj02989Cudqi 2024 12:42pmJune 2024 9:27amMultivitamin (One A Day) TabletDiscontinued1 TABPODailyAugust 2020 11:00pmFebruary 2023 10:57amAscorbic Acid (Vitamin C) (Vitamin C) 1,000 mg OgyanzVbwwzeuzfofs1882VHGTQwxcjZxsnje 2020 11:00pmFebruary 2023 10:57amsupplementEchinacea 380 mg CapsuleActive 760MGPODailyAugust 2020 11:00pmsupplementUnknownMilk Thistle 175 mg Tablet Qmlbnp700DPDXJdwikEvppfv 2020 11:00pmsupplementUnknownCyanocobalamin (Vitamin B-12) (Vitamin B-12) 1,000 mcg EtrradOgjbcvhgqvuy4836ZFHTECezcgXokctr 2020 11:00pmFebruary 2023 10:57amsupplementMeloxicam 7.5 mg tablet Discontinued7.5MGPOTwice daily as needed for PainAugust 2020 11:00pm May 18, 2023 10:59amInstructed to stop 7 days before surgeryNiacin 500 mg LaiyunObuiypxdqkaa724SSOZHnivdFegxou 2020 11:00pmFebruary 2023 10:57amLisinopril 40 mg VdfquwMppdbtjnkqqu32DNSFWxrowZdpool 2020 11:00pm May 18, 2023 10:59amHTNPyridoxine (Vitamin B6) (Vitamin B-6) 500 mg SxqqmxWivvejrffkie8989AMBRLvzgxVrwxqs 2020 11:00pmFebruary 2023 10:57amsupplementCholecalciferol (Vitamin D3) (Vitamin D3) 25 mcg (1,000 unit) RvybvmzQisgbukwplcj50QBQLLJfhopLigvey 2020 11:00pmFebruary 2023 10:57amsupplementMethylsulfonylmethane (Msm) 1,000 mg UtpfylDxydilhqepmz8749SJTO DailyAugust 2020 11:00pmAugust 2023 11:07amjoint healthCalcium Citrate-Vitamin D3 (Citracal Plus D) 250 mg-5 mcg (200 unit) XomeihWrklpv5TGWPA DailyAugust 2020 11:00pmsupplementUnknownPotassium Gluconate 595 mg (99 mg) BvzpifAfiykicmcsoq017SYOPUcqiiDrbxhq 2020 11:00pmFebruary 2023 10:59amsupplementTurmeric 400 mg WdoexyjGgypxmcdfkaq052WFHXEcjyeMidkdl 2020 11:00pmFebruary 2023 10:59amsupplementAspirin 81 mg Capsule Eqgwtsbsxnqv79TFPOHmfutOvslzy 2020 11:00pmAugust 2023 11:06am Instructed to stop 7 days prior to surgeryPrevagen 1 wzvGamgzudokedi2UGFMGCjrtq November 16, 2020 11:00pmFebruary 2023 10:59amsupplementSodium Chloride 1 gram QkfjeuQypdqxnfhuah6KXZDVo Directed as needed for CrampsAugust 2020 11:00pmFebruary 2023 10:57amLisinopril 40 mg tszcbbDhfgsjiabgqk46KKUNMqnxb May 18, 2023 10:42amDecember 2023 12:37pmHTNMeloxicam 7.5 mg tablet Discontinued7.5MGPODaily as needed for PainFebruary 2023 10:43amFebruary 2023 11:21amPotassium Gluconate 595 mg (99 mg) mzvlkoFmunlb491DOVPTxxbu May 18, 2023 10:44amsupplementUnknownPrevagen 1 xmaZlxzkf4FHQNBJmlwt May 18, 2023 10:45amsupplementUnknownTurmeric 400 mg crcheilEgspcc185TGOM Dailyuary 2023 10:46amsupplementUnknownIpratropium [place] 42 mcg (0.06 %) spray,non-aerosolDiscontinuedINTRANASALFebruary 2023 12:00am November 07, 2023 11:06amUse 2 sprays in each nostril before meals nasally three times a dayNiacin 500 mg fcbdapMsihxl111RZIEFmqxvEbzfgo 2023 11:00pm UnknownMecobalamin (Vitamin B12) 500 mcg tablet,chewableActiveMCGPOAugust 2023 11:00pmUnknownAscorbic Acid (Vitamin C) 500 mg capsuleActiveMGPOAugust 2023 11:00pmUnknownPyridoxine (Vitamin B6) 100 mg rmvynjSfxtke093YDIRLdtwk a WeekAugust 2023 11:00pmUnknownCholecalciferol (Vitamin D3) 125 mcg (5,000 unit) sxifizkWvnswy078EHLLZYhgtjXsqrix 2023 11:00pmUnknown Gcshoqxc-Srx-Ucnok-Vit K-Lycop 400-20-370 mcg zylfpfUjlqbc7QKLNSEgrizTnuayw 2023 11:67lrShbwqhjO4-Hwsdv-C50-Goeqcn-Oginjrtqvd (Neuriva Plus Brain Performance) 1.7 mg-400 mcg- 2.4 mcg capsuleActiveCAPPOAugust 2023 11:00pm UnknownGlucosamine Hcl 1,500 mg xofkftZxcycf2573VSHZArbwiRjtgiv 2023 11:00pmadminister with a mealUnknownEzetimibe 10 mg iyysuqSeukpx02WPJAGrvur74407 October 25, 2024 8:22amUnknownAmlodipine-Benazepril 5-40 mg ldjvlxhDsyrzs8KJWQE Hfdjn51643Zcuk 2024 11:00pmUnknownNebivolol (Bystolic) 5 mg tabletActive5 VCZCJbexs57001Xzsnfsek 2024 12:00amUnknownAzithromycin 250 mg tablet Krqcxamkkyzd909HGFH.BMGGYGB798Zohyddoq 2024 12:00amFebruary 2024 9:23am2 tabs on first day followed by 1 tab on days 2-5 Immunizations Immunization Event Date Not Given Reason 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 Number Reason(s) Given Vaccine Information Statement (VIS) Detail Administration Location COVID-19 mRNA-1273 (Moderna) May 27, 2020 COVID-19 mRNA-1273 (Moderna)June 24OVID-19 mRNA-1273 (Moderna)January 20OVID-19 mRNA-1273 (Moderna)July [id number] TIV High- Dose 65YR+January 13, 2024U8429BAFluzone TIV High-Dose 65YR+January 02, 2025 B8383OHOtutzhoxm, trivalentOctober [id number] vaccine, quadrivalent, adjuvantedSeptember [id number] vaccine, quadrivalent, adjuvantedOctober [id number] vaccine, quadrivalent, adjuvantedOctober [id number], unspecified formulationSeptember 2020influenza, unspecified formulationOctober 2021influenza, unspecified formulationOctober 3Pneumococcal Conjugate Vaccine, 13 valentOctober 2019Pneumococcal Polysacc. Vaccine, 23 valentJuly 2021 Quadrivalent InfluenzaOctober [id number] Vaccine Recombinant, AdjuvantedNovember 2019Zoster Vaccine Recombinant, AdjuvantedJanuary hingles (Zoster)February 01, 2020Shingles (Zoster)April 15, 2020 Medical Equipment Device Date Implanted Device Details Tendon/ligament bone anchor, bioabsorbable February 27, 2021 ANGELA: [id number] Issuing Agency: [employer] Device Id: [id number] Expiration Date: 2024-08-25 Lot Number: [id number]/ligament bone anchor, bioabsorbableDecember 2020 ANGELA: [id number] Issuing Agency: [facility] Device Id: [id number] Expiration Date: 2024-11-25 Lot Number: [id number] Procedures Procedure Date Performed Status CT shoulder RT wo con January 31, 2025 4:06pm completed Relevant Diagnostic Tests and/or Laboratory Data Laboratory Results Test Collection Date/Time Result Date/Time Result Interpretation Reference Range Result Comment Performing Site Basophils # (Auto) February 18, 2025 3:15pm February 18, 2025 3:15pm 0.1 10 3/uL 0.0-0.1Anion GapFebruary 18, 2025 3:15pmFebruary 18, 2025 3:15pm13.3 Basophils (%) (Auto)February 18, 2025 3:15pmFebruary 18, 2025 3:15pm0.7 % 0.2-2.0Albumin/Globulin RatioNove2024 3:15pmFebruary 18, 2025 3:15pm1.1Eosinophils # (Auto)February 18, 2025 3:15pmFebruary 18, 2025 3:15pm0.4 10 3/uL0.0-0.7AlbuminFebruary 18, 2025 3:15pmFebruary 18, 2025 3:15pm4.0 g/dL3.4-5.0Eosinophils (%) (Auto)February 18, 2025 3:15pmFebruary 18, 2025 3:15pm5.5 %0.9-7.0Alkaline PhosphataseFebruary 18, 2025 3:15pm February 18, 2025 3:03xs216 U/A00-128IiooeduwybVbmyipop 24th, 2025 3:15pm February 18, 2025 3:15pm36.9 %Below low dfcfio48.0-54.0Alanine Aminotransferase (ALT/SGPT)February 18, 2025 3:15pmFebruary 18, 2025 3:15pm 48 U/T74-45BqehcxgqtpFxicfhxw 24th, 2025 3:15pmNov2024 3:15pm12.8 g/dLBelow low dehmxz34.0-18.0Aspartate Amino Transf (AST/SGOT)February 18, 2025 3:15pmFebruary 18, 2025 3:15pm32 U/P32-44Ioyelcky Granulocyte # (Auto) February 18, 2025 3:15pmFebruary 18, 2025 3:15pm0.04 10 3/uLAbove high normal0.00-0.03BUN/Creatinine RatioNovekingman regional medical center 2024 3:15pmFebruary 18, 2025 3:15pm21.0Immature Granulocyte % (Auto)February 18, 2025 3:15pmFebruary 18, 2025 3:15pm0.5 %0.0-0.5Blood Urea NitrogenFebruary 18, 2025 3:15pmFebruary 18, 2025 3:15pm17.0 mg/dL7.0-18.0Lymphocytes # (Auto)February 18, 2025 3:15pmFebruary 18, 2025 3:15pm1.8 10 3/uL1.2-3.8Calcium LevelFebruary 18, 2025 3:15pmFebruary 18, 2025 3:15pm8.7 mg/dL8.5-10.1Lymphocytes (%) (Auto) February 18, 2025 3:15pmFebruary 18, 2025 3:15pm22.8 %20.5-60.0Chloride LevelFebruary 18, 2025 3:15pmFebruary 18, 2025 3:15pm98 mmol/Q16-129Ffpf Corpuscular HemoglobinFebruary 18, 2025 3:15pmFebruary 18, 2025 3:15pm32.6 pg25.9-34.0Carbon Dioxide LevelFebruary 18, 2025 3:152024 3:15pm23.8 mmol/L21.0-32.0Mean Corpuscular Hemoglobin ConcentFebruary 18, 2025 3:15pmFebruary 18, 2025 3:15pm34.7 g/dL29.9-35.2CreatinineFebruary 18, 2025 3:15pmFebruary 18, 2025 3:15pm0.81 mg/dL0.70-1.30Mean Corpuscular Volume February 18, 2025 3:15pmFebruary 18, 2025 3:15pm93.9 fL80.0-94.0Estimated GFR ()February 18, 2025 3:15pmFebruary 18, 2025 3:15pm>60 >=60 mL/min/1.73m 2Monocytes # (Auto)February 18, 2025 3:15pmFebruary 18, 2025 3:15pm1.0 10 3/uLAbove high normal0.3-0.8Estimated GFR (Non- AmericanFebruary 18, 2025 3:15pmFebruary 18, 2025 3:15pm>60>=60 mL/min/1.73m 2Monocytes (%) (Auto)February 18, 2025 3:15pmFebruary 18, 2025 3:15pm12.7 % Above high normal1.7-12.0GlobulinFebruary 18, 2025 3:15pmFebruary 18, 2025 3:15pm3.5 g/dLMean Platelet VolumeFebruary 18, 2025 3:15pmFebruary 18, 2025 3:15pm9.1 fLBelow low normal9.5-13.5Glucose LevelNovant [facility]byterian [facility]2024 3:15pm February 18, 2025 3:15pm83 mg/zV36-291Azuhapzlnuf # (Auto)February 18, 2025 3:15pmFebruary 18, 2025 3:15pm4.6 10 3/uL1.4-6.5Potassium LevelNovant Health Presbyterian Medical Center2024 3:15pmFebruary 18, 2025 3:15pm4.1 mmol/L3.5-5.1Neutrophils (%) (Auto) February 18, 2025 3:15pmFebruary 18, 2025 3:15pm57.8 %43.0-75.0Sodium Level February 18, 2025 3:15pmFebruary 18, 2025 3:16sj084 mmol/LBelow low normal 136-145Platelet CountFebruary 18, 2025 3:15pmFebruary 18, 2025 3:85td681 10 3/oG566-407Okbdg BilirubinFebruary 18, 2025 3:15pmFebruary 18, 2025 3:15pm 0.3 mg/dL0.2-1.0Red Blood CountFebruary 18, 2025 3:15pmFebruary 18, 2025 3:15pm3.93 10 6/uLBelow low normal4.70-6.10Total ProteinFebruary 18, 2025 3:15pmFebruary 18, 2025 3:15pm7.5 g/dL6.4-8.2Red Cell Distribution Width February 18, 2025 3:15pmFebruary 18, 2025 3:15pm11.9 %11.0-15.0Corrected White Blood CountFebruary 18, 2025 3:15pmFebruary 18, 2025 3:15pm8.0 10 3/uL 4.0-11.0 Diagnostic Imaging Reports Author Doc Ramires [facility] HospitalAuthoredJanuary 31, 2025 5:48pmReportDictated Date/TimeDictated ByStatusRadiology ReportJanuary 31, 2025 5:48pmDoc Ramires II MDcompSelect Medical [facility], [place] [address] CT Scan Report Signed Patient: Cristhian العلي MR#: [id number] : 1945 Acct:[id number] Age/Sex: 79 / M ADM Date: 5 Loc: CT Room: Type: [facility] Attending Dr: Jeff Grimaldo MD Copies [...] Ramires M.D. 01/31/2025 5:52 PM Dictation Location: [facility]--23 Transcribed By: [facility] 01/31/25 175 Dictated By: Doc Ramires II, MD 01/31/25 1748 Signed By: <Electronically signed by Doc Ramires II, MD in OV> 01/31/25 175 Vital Signs Vital Reading Result Reference Range Collection Date/Time Height 71 [in_i] January 31, 2025 9:28ibMhgbuv03.79 kgNov2024 9:19amHeart Rate80 /rbo60-712OupenzjwJanuary 31, 2025 9:19amRespiratory rate12 /fhm45-47FnnkovuzJanuary 31, 2025 9:19amBP Eyviyhkp558 mm[Hg]100-140January 31, 2025 9:19amBP Uxlafegig70 mm[Hg]60-100January 31, 2025 9:19amBMI (Body Mass Index)23.9 kg/t7Ssvpeefq2024 9:64tmUpbfcu35 [in_i]February 11, 2025 8:61vpDltnxx30.56 kgNov2024 8:41amBMI (Body Mass Index)23.8 kg/o4KyiqdwilFebruary 11, 2025 8:41amHeight 71 [in_i]February 20, 2025 2:99vzQcicco97.13 kgNov2024 2:57pmHeart Rate93 /zfj81-191UkmpohnrFebruary 20, 2025 2:57pmRespiratory rate12 /qtv23-45TpbduvlzFebruary 20, 2025 2:57pmBP Fhbcgaav851 mm[Hg]100-140February 20, 2025 2:57pmBP Cjcnomgkk68 mm[Hg]60-100Nov2024 2:57pmBMI (Body Mass Index)24.0 kg/v8YrxivcriFebruary 20, 2025 2:57pm Advance Directives Advance Directive Response Recorded Date/ Time Advance Directives No November 12, 2020 7:28am Insurance Providers Guarantor Cristhian العلي Address [address] [place] [id number] Info.Home Phone: Coverage Status Update:2025 Payer Group Member ID Coverage Type Subscriber Relationship to Subscriber Effective Date Expiration Date MMO [employer] Access [address] [address] [facility] [address] Work Phone: Id: [id number] W العلي Id: [id number] [address] [facility] [address] Home Phone: Email: [email or web address] Id: [id number] W العلي Id: [id number] [address] [facility] [address] Home Phone: Email: [email or web address] E العلي Id: [id number] [address] [facility] [address] Home Phone: Email: [email or web address] E العلي Id: [id number] [address] [facility] [address] Home Phone: Email: [email or web address] Encounter Location(s) Arrival/Admit Date Discharge/Departure Date Discharge/Departure Disposition Provider(s) Departed Physician/ Provider Office Visit -[facility] December 04, 2024 11:27am December 04, 2024 11:59am Discharged to home care or self care (routine discharge) Jeff Grimaldo MD Departed Physician/ Provider Office Visit -[facility] January 22, 2025 10:59am January 22, 2025 11:49am Discharged to home care or self care (routine discharge) Jeff Grimaldo MD Departed Physician/ Provider Office Visit -[facility] January 31, 2025 9:02am January 31, 2025 9:54am Discharged to home care or self care (routine discharge) Shay Pineda DO Departed Clinical -CT Scan [facility] January 31, 2025 4:01pm January 31, 2025 4:02pm Discharged to home care or self care (routine discharge) Jeff Grimaldo MD Departed Physician/ Provider Office Visit -[facility] February 11, 2025 7:47am February 11, 2025 8:45am Discharged to home care or self care (routine discharge) Eloy Swan , Non-patient / Non-visit -[facility] N ovember 2024 3:15pm Lacho Giraldoarted Physician/Provider [facility] 20[facility] 2:50pmNov2024 3:28pmDischarged to home care or self care (routine discharge)Michael Giraldo Physician/Provider Office Visit-[facility] 2024 8:04am February 25, 2025 8:11amDischarged to home care or self care (routine discharge)Shay Pineda DO Recent Diagnosis Onset Date Admit Date Primary osteoarthritis, right shoulder Unknown December 04, 2024 11:27am Right shoulder tendonitis Unknown Septem 2024 11:27am Tear of right supraspinatus tendon [...] January 9:02am Tubular adenoma of colon Unknown Novem r 2024 9:02am Primary osteoarthritis, right shoulder Unknown February 11, 2025 7:47am Right shoulder tendonitis Unknown Novemb er 2024 7:47am Tear of right supraspinatus tendon Unknown February 11, 2025 7:47am Alcohol use Unknown February 20, 2 025 2:50pm Hypercholesterolemia Unknown February 202024 2:50pm Mucopurulent chronic bronchitis Unknown February 20, 2025 2:50pm Nicotine addiction Unknown January 2:50pm Primary hypertension Unknown February 202024 2:50pm Primary osteoarthritis, right shoulder Unknown February 20, 2025 2:50pm Tear of right supraspinatus tendon Unknown February 20, 2025 2:50pm Preop exam for internal medicine Unknown February 20, 2025 2:50pm Assessments Diagnosis Onset Date Resolution Status Admit [...] 2024 7:47amTear of right supraspinatus tendonacuteNovember 2024 7:47amAlcohol useacute February 20, 2025 2:50pmHypercholesterolemiaacuteNovember 2024 2:50pm Mucopurulent chronic bronchitisacuteNovember 2024 2:50pmNicotine addiction acuteNovember 2024 2:50pmPrimary hypertensionacuteNovember 2024 2:50pmPrimary osteoarthritis, right shoulderacuteNovember 2024 2:50pmTear of right supraspinatus tendonacuteNovember 2024 2:50pmPreop exam for internal medicinenoneactiveNov2024 2:50pm Plan of Treatment Author Paula Rod[facility]guez [facility] 2024 10:59amA 1/1cc Marcaine / Kenalog cortisone injection was performed into the subacromial space under sterile technique. Patient tolerated the injection well with no adverse reaction. Note scribed by Paula Rodríguez Robyn, reviewed and amended by Jeff Grimaldo M.D. Author Shay Pineda [facility] 2024 10:00amI have instructed this patient to [...] lung cancer screening. - began 20 - /-1 ppd - counseled on smoking cessation Serial LDCT completed: No suspicious nodules: 12/2021, 12/2022, 01/2024 Due for repeat LDCT, will send order to [facility] I have instructed this patient on a [...] Last colonoscopy 08/2021 (repeat 5 years) Author Eloy Swan [facility] HospitalAuthoredNovember 2024 8:55amHe continues to have pain in his shoulder. [...] preoperative. Procedure: right reverse shoulder arthroplasty Antibiotics: Ancef, doxy 100mg BID x 7 days DVT ppx: Ambulation Same Day Surgery: Yes Bed: Beachchair Instruments needed: Tornier reverse shoulder arthroplasty Author Shay Pineda [facility] HospitalAuthoredNovember 2024 5:17pmInstructed to stop smoking several weeks prior to surgery. Instructed on cough and deep breathing exercises to be done in the perioperative period. Stable, instructed to continue Zetia w/o interruption Instructed to stop smoking several weeks prior to surgery. Instructed on cough and deep breathing exercises to be done in the perioperative period. I have seen and examined Selwyn for his preoperative evaluation. He has been instructed to stop smoking and consuming alcohol several weeks prior to surgery. I have reviewed his perioperative medication management: - I have instructed him to avoid ASA and all NSAIDs 7 days prior to surgery Stable, continue Lotrel and Bystolic w/o interruption Failed conservative treatment, scheduled for right reverse total shoulder arthroplasty s/p right shoulder arthroscopic repair - 2020 Instructed to discontinue daily alcohol consumption for several weeks prior to surgery Author Ken Adam [facility] HospitalAuthoredOctober 2024 10:51amImages and pain etiology were discussed [...]
--- OUTSIDE RECORDS SUMMARY | 2025-02-28 07:17 | XMS_ITS | Clinical Summary ---
Author Organization [facility] Healthcare Address [address] [place] [address] Care Team Providers Care Soil Science Professor Name Role Phone Shay Pineda Primary Care Provider [phone] Allergies Active AllergyReactionsCriticalityNoted GevlNfdjsvkqWkbvhghpylwi42/29/2024 Other Reaction(s): UNK Medications MedicationSigDispense QuantityRefillsLast FilledStart [...] A DAY MEN 50 PLUS PO) 1 sbkgai0711/07/2023ctive milk thistle 175 MG tablet Take 175 mg by mouth DailyActive Echinacea 650 MG capsule Take by mouthActive Cyanocobalamin (Vitamin B 12) 100 MCG lozenge Take by mouthActive ipratropium (Atrovent) 0.06 % nasal spray Indications:Chronic vasomotor rhinitisAdminister 2 sprays into each nostril in the morning and 2 sprays in the evening and 2 sprays before bedtime. 45 mL 311/06/2024Active Active Problems ProblemNoted DateDiagnosed QawcGqvgqgtgn59/06/2024Barrett's esophagus without vulzhgyiv65/06/2024enign prostatic hyperplasia with lower urinary tract urueiioy14/06/2024Chronic vasomotor gheupsfj11/06/5244Sscdyr03/13/2022 Family History RelationNameStatusCommentsFatherDeceasedMotherDeceased Social History Tobacco UseTypesPacks/DayYears UsedDateSmoking Tobacco: Every DayCigarettes Smokeless Tobacco: Never Tobacco Cessation:Ready to Q uit: Not Asked; Counseling Given: Yes Alcohol UseStandard Drinks/WeekCommentsYes1 (1 standard drink = 0.6 oz pure alcohol)Sex and Gender InformationValueDate RecordedSex Assigned at BirthNot on fileLegal LmfHtnu40/29/2024 1:51 PM EDTGender IdentityNot on fileSexual OrientationNot on file Last Filed Vital Signs Vital SignReadingTime TakenCommentsBlood Eiqhhthr500/80104/02/2023 10:47 AM EST Pulse--Temperature--Respiratory Qppk511409/07/2024 2:12 PM EDTOxygen Saturation-- Inhaled Oxygen Concentration--Cnzrus56.1 kg (170 lb)09/07/2024 2:12 PM EDTHeight 180.3 cm (5' 11 )09/07/2024 2:12 PM EDTBody Mass Index23.71009/07/2024 2:12 PM EDT Plan of Treatment Not on file Insurance Care Teams Team MemberRelationshipSpecialtyStart DateEnd Date Shay Pineda DO [address] [place] [address] PCP - GeneralInternal Llecrunj45/6/24
--- OUTSIDE RECORDS SUMMARY | 2025-02-28 07:17 | XMS_ITS | CCD ---
Author Organization [facility] Care Team Providers Care Mr Teacher Name Role Phone SHAY ROCA Primary Care Physician [phone] Hawa Starkey Unavailable Renee Lawrence Unavailable Shay Roca Unavailable DO Shay Roca Primary Care Provider [phone] MD Hawa Starkey Attending Provider [phone] CHANELLE, DR BALL Consulting Unavailable BALL, DR [...] Provider Shay Roca DO Primary Care Provider [facility] [place] Attending Provider Shay Roca MD Primary Care Provider Hawa Starkey MD Attending Provider Chanelle [place] Primary Care Provider JACOBO BROWN Attending Unavailable JACOBO BROWN Referring Unavailable JACOBO BROWN Attending Unavailable JACOBO BROWN Attending Unavailable ALEX GARCIA Attending Unavailable SHAY ROCA Referring Unavailable Shay Roca DO Primary Care Provider Hawa Starkey MD Attending Provider Chanelle [place], Shay Attending Provider [phone] Shay Roca DO Primary Care Provider Hawa Starkey MD Attending Provider [place] Shay Primary Care Provider Hawa Starkey MD Attending Provider [phone] [place], Shay Attending Provider [phone] Shay Roca Primary Care Unavailable [facility], Phil [place] Admitting Unavailable [facility], [place] Attending Unavailable [place], Hawa Admitting Unavailable Olexa, Hawa Attending Unavailable Shay Roca Primary Care Unavailable Shay Roca Primary Care Unavailable Olexa, Hawa Admitting Unavailable Olexa, Hawa Attending Unavailable Allergies Allergy ClassificationReported Allergen(s)Allergy TypeDate of OnsetReaction(s) Facility (4 sources)atorvastatinDrug AllergyQuippi Other (1 source)HMG-CoA reductase inhibitorDrug allergyQuippi Other (9 sources)atorvastatinDrug Iyypnro03-50-4992VV[facility] (1 source)atorvastatinDrug Gelhvsq37-26-2268GsaodxdanClerm[facility] Medications Current Medications MedicationDrug Class(es)DatesSig (Normalized)Sig (Original)acetaminophen 325 mg / oxyCODONE hydrochloride 5 mg oral tablet (1 source)Opioid AgonistStart: 54-96-8110vwnb 1 tablet by mouth every four hours Percocet 5-325 MG 1 tablet as needed Orally every 4 hrs for 7 days Feb, ActiveamLODIPine 5 mg / benazepril hydrochloride 40 mg oral capsule (5 sources)Dihydropyridine Calcium Channel Cesar, Angiotensin Converting Enzyme InhibitorStart: 57-33-2872sxdl 1 capsule by mouth once dailyascorbic acid 500 mg oral capsule (20 sources)Vitamin CStart: 44-42-8067Nerqr: 12-39-6398Tyljirbt Acid (Vitamin C) Active MG PO November 07, 2023 12:00amStart: 15-90-8396Iyxeeko C Daily, Refills(s) 0, Prophylaxis Start Date: 09/03/21 Status: OrderedStart: 09-03-2021 Vitamin C Daily, Refills(s) 0 Start Date: 09/03/21 Status: OrderedStart: 11-17-2020 End: 64-27-0597tpcz 1 tablet by mouth once dailyAscorbic Acid (Vitamin C) (Vitamin C) 1,000 mg Tablet Discontinued 1000 MG PO Daily November 16, 2020 11:00pm May 18, 2023 10:57am supplementascorbic acid (Vitamin C) 500 mg/mL oral liquid (9 sources)Start: 88-68-5216dntwrqmy acid (Vitamin C) 500 mg/mL oral liquid 11/07/2023 JahgmqH6-Ftawd-E84C07-Cbdhnl-Qswlzcvuni (Neuriva Plus Brain Performance) 1.7 mg-400 mcg- 2.4 mcg capsule (13 sources)Start: 36-30-6349Glmwb: 92-47-7893N07395V5-Djgig-M12-Rvwxgl-Sysqftrpno (Neuriva Plus Brain Performance) 1.7 mg-400 mcg- 2.4 mcg capsule Active CAP PO November 06, 2023 11:00pm Complies with drug therapyStart: 57-76-0160Ommka: 95-23-0376M24065O3-Dushd-A20-Qfdooh-Krmeilavcd (Neuriva Plus Brain Performance) 1.7 mg-400 mcg- 2.4 mcg capsule Active CAP PO November 07, 2023 12:00am Complies with drug therapyStart: 14-35-9414V20278Y7-Wsqov-V43-Potxze-Zhpqaoglxo (Neuriva Plus Brain Performance) 1.7 mg-400 mcg- 2.4 mcg capsule Active CAP PO November 06, 2023 11:00pmStart: 61-85-4427D12843M3-Krkdu-M94-Bzciet-Aobjqsinyy (Neuriva Plus Brain Performance) 1.7 mg-400 mcg- 2.4 mcg capsule Active CAP PO November 07, 2023 12:00amCalcium Citrate (9 sources)Citracal +D3 Activecalcium citrate 1190 mg / cholecalciferol 0.005 mg oral tablet (16 sources)Vitamin DStart: 45-18-5193lizc 1 tablet by mouth once daily cefuroxime 500 mg oral tablet (9 sources)Cephalosporin AntibacterialStart: 61-77-3946bocl 1 tablet by mouth twice dailycephalexin 500 mg oral capsule (1 source)Cephalosporin AntibacterialStart: 10-77-8893jaca 1 capsule by mouth every eight hoursCephalexin 500 MG 1 capsule Orally TID for 2 days Feb, Activecholecalciferol 0.125 mg oral capsule (20 sources)Vitamin DStart: 29-34-7151oiid 1 capsule by mouth once dailyStart: 11-17-2020 End: 93-09-9404ybqk 1 capsule by mouth once dailyCholecalciferol (Vitamin D3) (Vitamin D3) 25 mcg (1,000 unit) Capsule Discontinued 25 MCG PO Daily November 16, 2020 11:00pm May 18, 2023 10:57am supplementPrevagen Extra Strength 20 MG as directed Orally Activetake 1 tablet by mouth every twenty-four hours Vitamin D3 25 MCG (1000 UT) 1 tablet Orally Once a day ActiveCitracal Maximum + D (2 sources)Start: 27-85-1812Blfrttyr Maximum + D Oral, BID, Refill(s) 0, Prophylaxis Start Date: 09/03/21 Status: OrderedStart: 48-03-6310Kbysibcs Maximum + D Oral, BID, Refill(s) 0 Start Date: 09/03/21 Status: OrderedEchinacea (9 sources)Echinacea ActiveEchinacea 650 MG capsule (9 sources)Echinacea 650 MG capsule Take by mouth ActiveEchinacea Preparation (18 sources)Start: 15-91-9989sastozccv Refills(s) 0, Prophylaxis Start Date: 09/03/21 Status: OrderedStart: 06-76-8243slqcsensv Refills(s) 0 Start Date: 09/03/21 Status: OrderedStart: 93-94-2488wxnu 1 capsule by mouth once dailyStart: 12-48-2912cvbl 1 capsule by mouth once dailyEchinacea 380 mg Capsule Active 760 MG PO Daily November 16, 2020 11:00pm supplement Complies with drug therapy Start: 45-03-7141pjez 1 capsule by mouth once dailyStart: 07-83-1664zqny 1 capsule by mouth once dailyEchinacea 380 mg Capsule Active 760 MG PO Daily November 17, 2020 12:00am Complies with drug therapyStart: 50-66-6487hqti 1 capsule by mouth once dailyEchinacea 380 mg Capsule Active 760 MG PO Daily November 17, 2020 12:00amStart: 14-71-9373sjnc 1 capsule by mouth once daily Echinacea 380 mg Capsule Active 760 MG PO Daily November 16, 2020 11:00pmStart: 31-83-8767ycfc 760 mg by mouth once dailyEchinacea Active 760 MG PO Daily November 16, 2020 11:00pmStart: 62-92-3934dfch 760 mg by mouth once dailyEchinacea Active 760 MG PO Daily November 17, 2020 12:00amezetimibe 10 mg oral tablet (19 sources)Dietary Cholesterol Absorption InhibitorStart: 98-40-4464hrnv 1 tablet by mouth once dailyStart: 07-12-2024 End: 63-42-7270llqs 1 tablet by mouth once dailyEzetimibe 10 mg tablet Discontinued 10 MG PO Daily 30 30 5 July 13, 2024 12:42pm September 04, 2024 9:27amglucosamine hydrochloride 1500 mg oral tablet (20 sources)Start: 98-35-2725cjwb 1 tablet by mouth once dailyipratropium bromide 0.042 mg/actuat metered dose nasal spray (20 sources)AnticholinergicStart: 02-01-2024 End: 50-01-1101ykcb 2 spray(s) nasal route in the morning, then take 2 spray(s) nasal route in the evening, then take 2 spray(s) nasal route at bedtime ipratropium (Atrovent) 0.06 % nasal spray Indications: Chronic vasomotor rhinitis Administer 2 sprays into each nostril in the morning and 2 sprays in the evening and 2 sprays before bedtime. 45 mL 01/31/2025 Active Start: 02-01-2024 End: 69-74-3115zbko 1 spray(s) nasal route three times dailyIpratropium Olema 21 mcg (0.03 %) spray,non-aerosol Discontinued 2 SPRAY INTRANASAL Three times da german February 01, 2024 12:00am September 04, 2024 9:27am administer into each nostrilStart: 05-18-2023 End: 82-51-2934gcxe 2 spray(s) nasal route three times daily before mealtime Ipratropium Olema 42 mcg (0.06 %) spray,non-aerosol Discontinued INTRANASAL May 18, 2023 12:00am November 07, 2023 11:06am Use 2 sprays in each nostril before meals nasally three times a dayStart: 01-31-3324jbnr 2 spray(s) nasal route before mealtimeIpratropium Olema 0.06 % 2 sprays in each nostril Nasally before meals for 30 days Dec, Activemecobalamin (8 sources)Start: 88-44-7014Ziqlolnmzsk (Vitamin B12) 500 mcg tablet,chewable Active MCG PO November 07, 2023 12:00amStart: 96-55-8140Puwxardbipm (Vitamin B12) 500 mcg tablet,chewable Active MCG PO November 06, 2023 11:00pmStart: 03-90-6659Yvntaqcgemm (Vitamin B12) Active MCG PO November 07, 2023 12:00amMilk thistle extract (20 sources)Start: 94-11-4881jsrn thistle 175 mg, Refill(s) 0, Prophylaxis Start Date: 09/03/21 Status: OrderedStart: 43-06-6065cwig thistle Refill(s) 0 Start Date: 09/03/21 Status: OrderedStart: 81-07-9243strz 1 tablet by mouth once daily Start: 52-38-1137dsjs 1 tablet by mouth once dailyMilk Thistle 175 mg Tablet Active 175 MG PO Daily November 16, 2020 11:00pm supplement Complies with drug therapyStart: 24-07-5983wpmz 1 tablet by mouth once dailyStart: 54-70-3587qiay 1 tablet by mouth once dailyMilk Thistle 175 mg Tablet Active 175 MG PO Daily November 17, 2020 12:00am Complies with drug therapyStart: 74-29-7398nags 1 tablet by mouth once dailyMilk Thistle 175 mg Tablet Active 175 MG PO Daily November 17, 2020 12:00amStart: 55-37-4964rvuu 1 tablet by mouth once dailyMilk Thistle 175 mg Tablet Active 175 MG PO Daily November 16, 2020 11:00pmStart: 80-49-2908flwg 175 mg by mouth once dailyMilk Thistle Active 175 MG PO Daily November 16, 2020 11:00pmStart: 27-80-1859jawz 175 mg by mouth once dailyMilk Thistle Active 175 MG PO Daily November 17, 2020 12:00amtake 1 tablet by mouth once dailymilk thistle 175 MG tablet Take 175 mg by mouth Daily ActiveMilk Thistle 175 MG as directed Orally ActiveMSM 1000 MG (9 sources)MSM 1000 MG as directed Orally ActiveMultiple Vitamins-Minerals (ONE A DAY MEN 50 PLUS PO) (9 sources)Start: 37-97-4622plix 1 tablet by mouth once dailyMultiple Vitamins- Minerals (ONE A DAY MEN 50 PLUS PO) 1 tablet 11/07/2023 Active Svhrdxjs-Mxs-Zkltw-Vit K-Lycop (3 sources)Start: 07-96-8273bwch 1 tablet by mouth once daily Yjdleobn-Hjj-Tmlam-Vit K-Lycop Active 1 TAB PO Daily November 07, 2023 12:00am Vsdqqhoa-Kga-Ifmhn-Vit K-Lycop 400-20-370 mcg tablet (10 sources)Start: 57-11-3996twly 1 tablet by mouth once dailyStart: 11-07-2023 take 1 tablet by mouth once pxgliFlxlmaia-Yto-Sjdqn-Vit K-Lycop 400-20-370 mcg tablet Active 1 TAB PO Daily November 06, 2023 11:00pm Complies with drug therapyStart: 40-81-0578fntl 1 tablet by mouth once dailyStart: 96-53-5113tipg 1 tablet by mouth once gwzsmXcaebhxu-Mvo-Recrw-Vit K-Lycop 400-20-370 mcg tablet Active 1 TAB PO Daily November 07, 2023 12:00am Complies with drug therapyStart: 60-21-5056egcr 1 tablet by mouth once azwjcGilesdvl-Ssy-Jttmx-Vit K-Lycop 400-20-370 mcg tablet Active 1 TAB PO Daily November 07, 2023 12:00amStart: 32-35-4211rfrd 1 tablet by mouth once gpnmnKwlzdpyy-Ydo-Fxkoo-Vit K-Lycop 400-20-370 mcg tablet Active 1 TAB PO Daily November 06, 2023 11:00pmAleve (2 sources)Nonsteroidal Anti-inflammatory DrugStart: 51-82-9094znmr 1 mg by mouth every twelve hoursAleve mg, Oral, q12hr, Refills(s) 0, Pain Start Date: 09/03/21 Status: OrderedStart: 46-92-9050hbom 1 mg by mouth every twelve hours Aleve mg, Oral, q12hr, Refills(s) 0 Start Date: 09/03/21 Status: Zkffcvw72 hr niacin 500 mg extended release oral tablet (20 sources)Nicotinic AcidStart: 91-00-6777dxrhfj (Niaspan) 500 MG ER tablet Daily 11/07/2023 ActiveStart: 70-77-8841rlfr 1 tablet by mouth once dailyStart: 65-09-8079bhxfkt Oral, Refills(s) 0 Start Date: 09/03/21 Status: OrderedStart: 11-17-2020 End: 69-39-9306otmg 1 tablet by mouth once dailyNiacin 500 mg Tablet Discontinued 500 MG PO Daily November 16, 2020 11:00pm May 18, 2023 10:5 7amomeprazole 40 mg delayed release oral capsule (1 source)Proton Pump InhibitorStart: 93-80-2870kyww 1 capsule by mouth once dailyomeprazole 40 mg Cap-DR 40 mg = 1 cap(s), Oral, Daily, # 30 cap(s), Refills(s) 2, Pharmacy: [facility], 180, cm, 09/23/21 11:48:00 EDT, Height/Length Dosing, 78.3, kg, 09/23/21 11:48:00 EDT, Weight Dosing Start Date: 09/23/21 Status: OrderedOne Daily 50 Plus - (9 sources)One Daily 50 Plus - as directed Orally ActivePlenvu oral powder for reconstitution (1 source)Start: 24-93-4017ptcc 1 dose by mouth oncePlenvu oral powder for reconstitution See Instructions, 1 EA, Refill(s) 0, Per physicians instruction's prior to colonoscopy Mail order pharmacy to sent to patient's home in [place]., [facility], 180, cm, 09/03/21 13:11:00 EDT, Height/Length Dosing, 78.3, kg, 09/03/21 13:11:0... Start Date: 09/03/21 Status: Orderedpotassium 99 mg extended release oral tablet (9 sources)take 1 tablet by mouth once dailyPotassium 99 MG 1 tablet Orally Once a day ActivePotassium Acetate (2 sources)Start: 70-00-9830mbypcfzxv acetate Refills(s) 0, Prophylaxis Start Date: 09/03/21 Status: OrderedStart: 58-59-5597nwtpoljax acetate Refills(s) 0 Start Date: 09/03/21 Status: OrderedPotassium gluconate (20 sources)Start: 83-63-2948RWYUNUGQZ GLUCONATE PO Daily 05/18/2023 Active Start: 11-17-2020 End: 89-69-5807qetp 1 tablet by mouth once dailyPrevagen (11 sources)Start: 58-42-6298fare 1 tablet by mouth once dailyPrevagen Active 1 TAB PO Daily May 18, 2023 11:45amStart: 26-65-2114yckh 1 tablet by mouth once dailyPrevagen Active 1 TAB PO Daily May 18, 2023 10:45amStart: 11-17-2020 End: 77-35-7516wzqy 1 tablet by mouth once dailyPrevagen Discontinued 1 TAB PO Daily November 17, 2020 12:00am May 18, 2023 11:59amStart: 11-17-2020 End: 06-51-6764ulod 1 tablet by mouth once dailyPrevagen Discontinued 1 TAB PO Daily November 16, 2020 11:00pm May 18, 2023 10:59amStart: 14-73-3243mrlf 1 tablet by mouth once dailyPrevagen Active 1 TAB PO Daily November 17, 2020 12:00amPrevagen 1 tab (20 sources)Start: 14-71-3116dhby 1 tablet by mouth once dailyStart: 05-18-2023 take 1 tablet by mouth once dailyPrevagen 1 tab Active 1 TAB PO Daily May 18, 2023 10:45am supplement Complies with drug therapyStart: 12-19-3876rjpe 1 tablet by mouth once dailyStart: 04-93-5624aqwn 1 tablet by mouth once daily Prevagen 1 tab Active 1 TAB PO Daily May 18, 2023 11:45am Complies with drug therapyStart: 85-85-3228alur 1 tablet by mouth once dailyPrevagen 1 tab Active 1 TAB PO Daily May 18, 2023 11:45amStart: 88-39-1561ktqm 1 tablet by mouth once dailyPrevagen 1 tab Active 1 TAB PO Daily May 18, 2023 10:45amStart: 11-17-2020 End: 07-76-6590gdip 1 tablet by mouth once dailyPrevagen 1 tab Discontinued 1 TAB PO Daily November 16, 2020 11:00pm May 18, 2023 10:59am supplement Start: 11-17-2020 End: 91-83-2803nota 1 tablet by mouth once dailyPrevagen 1 tab Discontinued 1 TAB PO Daily November 17, 2020 12:00am May 18, 2023 11:59am supplement Start: 11-17-2020 End: 53-51-8948lfhx 1 tablet by mouth once dailyPrevagen 1 tab Discontinued 1 TAB PO Daily November 17, 2020 12:00am May 18, 2023 11:59amStart: 11-17-2020 End: 38-13-9965frde 1 tablet by mouth once dailyPrevagen 1 tab Discontinued 1 TAB PO Daily November 16, 2020 11:00pm May 18, 2023 10:59amsodium chloride 1000 mg oral tablet (18 sources)Start: 12-69-7837kqtfci chloride 1 g Tab Refills(s) 0, Prophylaxis Start Date: 09/01/21 Status: OrderedStart: 11-26-2020 End: 42-60-8872Bjjpxn Chloride 1 gram Tablet Discontinued 1 GM PO As Directed as needed for Cramps November 25, 2020 11:00pm May 18, 2023 10:57amTumersaid (6 sources)Tumersaid ActiveTurmeric extract (20 sources)Start: 19-53-1397Optlcivu 400 MG capsule Daily 05/18/2023 Active Start: 14-64-0957rlsr 1 capsule by mouth once dailyStart: 99-50-6684jvap 1 capsule by mouth once dailyTurmeric 400 mg capsule Active 550 MG PO Daily May 18, 2023 10:46am supplement Complies withdrug therapyStart: 50-30-5520eyzf 1 capsule by mouth once dailyStart: 60-34-9540xmic 1 capsule by mouth once dailyTurmeric 400 mg capsule Active 550 MG PO Daily May 18, 2023 11:46am Complies with drug therapyStart: 63-28-7723jgxw 1 capsule by mouth once dailyTurmeric 400 mg capsule Active 550 MG PO Daily May 18, 2023 11:46amStart: 16-71-0379ropk 1 capsule by mouth once dailyTurmeric 400 mg capsule Active 550 MG PO Daily May 18, 2023 10:46amStart: 48-76-6662cjfn 550 mg by mouth once dailyTurmeric Active 550 MG PO Daily May 18, 2023 11:46amStart: 68-23-4916ldry 550 mg by mouth once dailyTurmeric Active 550 MG PO Daily May 18, 2023 10:46amStart: 66-68-4056ncnc 550 mg by mouth once dailyTurmeric 550 mg, Oral, Daily, Refill(s) 0, Prophylaxis Start Date: 09/03/21 Status: OrderedStart: 65-78-4044kiwm 1 mg by mouth once dailyTurmeric mg, Oral, Daily, Refill(s) 0 Start Date: 09/03/21 Status: OrderedStart: 11-17-2020 End: 37-87-9493fzgz 1 capsule by mouth once dailyTurmeric 400 mg Capsule Discontinued 550 MG PO Daily November 16, 2020 11:00pm May 18, 2023 1 0:59am supplementStart: 11-17-2020 End: 47-85-2192osfp 1 capsule by mouth once dailyTurmeric 400 mg Capsule Discontinued 550 MG PO Daily November 17, 2020 12:00am May 18, 2023 1 1:59am supplementStart: 11-17-2020 End: 04-05-5766eztb 1 capsule by mouth once dailyTurmeric 400 mg Capsule Discontinued 550 MG PO Daily November 17, 2020 12:00am May 18, 2023 1 1:59amStart: 11-17-2020 End: 55-56-8296cdsv 1 capsule by mouth once dailyTurmeric 400 mg Capsule Discontinued 550 MG PO Daily November 16, 2020 11:00pm May 18, 2023 1 0:59amStart: 11-17-2020 End: 43-51-1835meal 550 mg by mouth once dailyTurmeric Discontinued 550 MG PO Daily November 17, 2020 12:00am May 18, 2023 11:59amStart: 11-17-2020 End: 53-41-5883psxe 550 mg by mouth once dailyTurmeric Discontinued 550 MG PO Daily November 16, 2020 11:00pm May 18, 2023 10:59amStart: 10-95-8386lwpw 550 mg by mouth once dailyTurmeric Active 550 MG PO Daily November 17, 2020 12:00amvitamin b12 0.5 mg chewable tablet (20 sources)Vitamin V25Dfgka: 70-71-1946Houum: 58-22-2386Gtupbaa B12 Refills(s) 0, Prophylaxis Start Date: 09/03/21 Status: OrderedStart: 85-97-5502Rofascw B12 Refills(s) 0 Start Date: 09/03/21 Status: OrderedStart: 11-17-2020 End: 46-28-5643kwpn 1 tablet by mouth once dailyCyanocobalamin (Vitamin B-12) (Vitamin B-12) 1,000 mcg Tablet Discontinued 1000 MCG PO Daily 2020 11:00pm May 18, 2023 10:57am supplementCyanocobalamin (Vitamin B 12) 100 MCG lozenge Take by mouth ActiveVitamin B 12 Activevitamin b6 100 mg oral tablet (20 sources)Start: 16-54-0254syqd 1 tablet by mouth two times weeklyStart: 89-86-5840Wuakylz B6 Daily, Refills(s) 0, Prophylaxis Start Date: 09/03/21 Status: OrderedStart: 18-14-9101Xovqdsw B6 Daily, Refills(s) 0 Start Date: 09/03/21 Status: OrderedStart: 11-17-2020 End: 39-95-0461Mhhtddanho (Vitamin B6) (Vitamin B-6) 500 mg Tablet Discontinued 1000 MG PO Daily November 16762171:00pm February 21st, 2024 10:57am supplement Vitamin B6 ActiveVitamin C 1000 MG (7 sources)take 1 tablet by mouth once dailyVitamin C 1000 MG 1 tablet Orally Once a day ActiveVitamin D3 1000 intl units oral tablet (2 sources)Start: 73-39-2155moox 1 tablet by mouth once dailyVitamin D3 1000 intl units oral tablet 25 mcg = 1 tab(s), Oral, Daily, # 30 tab(s), Refills(s) 0, Prophylaxis Start Date: 09/03/21 Status: OrderedStart: 59-16-3374neoe 1 tablet by mouth once dailyVitamin D3 [...] Inhibitor, Nonsteroidal Anti-inflammatory Drug Start: 11-17-2020 End: 83-95-8672Ykdbfnu 81 mg Capsule Discontinued 81 MG PO Daily November 16, 2020 11:00pm November 07, 2023 11:06am Instructed to stop 7 days prior to surgerytake 1 tablet by mouth once dailyAspirin 81 81 MG 1 tablet Orally Once a day Activeazithromycin 250 mg oral tablet (10 sources)Macrolide AntimicrobialStart: 05-15-2024 End: 62-82-0526Bqsooquivjsy 250 mg tablet Discontinued 250 MG PO .COMPLEX 6 5 0 May 15, 2024 12:00am May 15, 2024 9:23am 2 tabs on first day followed by 1 tab on days 2-5etodolac 500 mg oral tablet (20 sources)Nonsteroidal Anti-inflammatory DrugStart: 05-19-2023 End: 15-44-4549laik 1 tablet by mouth twice dailyEtodolac 500 mg tablet Discontinued 500 MG PO Twice daily 30 15 0 May 19, 2023 12:00am August 05, 2023 8:04amLidocaine (1 source)Antiarrhythmic, Amide Local AnestheticStart: 86-09-9796Vaowpicag Aug, 20 mglisinopril 40 mg oral tablet (20 sources)Angiotensin Converting Enzyme InhibitorStart: 11-17-2020 End: 91-96-3937ofkn 1 tablet by mouth once dailyLisinopril 40 mg tablet Discontinued 40 MG PO Daily May 18, 2023 10:42am March 02, 2024 1 2:37pm HTNmeloxicam 7.5 mg oral tablet (20 sources)Nonsteroidal Anti-inflammatory DrugStart: 05-18-2023 End: 04-51-0349mxdc 1 tablet by mouth once daily as needed for painMeloxicam 7.5 mg tablet Discontinued 7.5 MG PO Daily as needed for Pain May 18, 2023 10:43amFebruary 2023 11:21amStart: 11-17-2020 End: 57-05-8308ltlh 1 tablet by mouth twice daily for painMeloxicam 7.5 mg tablet Discontinued 7.5 MG PO Twice daily as needed for Pain November 16, 2020 11:00pm May 18, 2023 10:59am Instructed to stop 7 days before surgerytake 1 tablet by mouth every twenty-four hoursMeloxicam 7.5 MG 1 tablet Orally Once a day Activemethylsulfonylmethane 1000 mg oral tablet (16 sources)Start: 11-17-2020 End: 10-99-5218cdus 1 tablet by mouth once dailyMethylsulfonylmethane (Msm) 1,000 mg Tablet Discontinued 1000 MG PO Daily November 16, 2020 11:00pmAugust 2023 11:07am [facility] centerMult[facility]amin (One A Day) Tablet (16 sources)Start: 11-17-2020 End: 32-77-1174pqwf 1 tablet by mouth once dailyMultivitamin (One A Day) Tablet Discontinued 1 TAB PO Daily November 17, 2020 12:00am May 18, 2023 11:57amStart: 11-17-2020 End: 09-67-1070dtld 1 tablet by mouth once dailyMultivitamin (One A Day) Tablet Discontinued 1 TAB PO Daily November 16, 2020 11:00pm May 18, 2023 10:57amStart: 71-79-7282ddtn 1 tablet by mouth once dailyMultivitamin (One A Day) Tablet Active 1 TAB PO Daily November 17, 2020 12:00amtriamcinolone acetonide 40 mg/ml injectable suspension (7 sources)CorticosteroidStart: 69-50-6441Ychfkkv-40 Aug, 40 mg Problems Active Problems Problem ClassificationProblemDateDocumented DateEpisodic/ChronicAcquired foot deformities (5 sources)Toe joint rigid; 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, right foot]06-27-2024 ChronicAcquired foot deformities (2 sources)Acquired deformity of toe of right foot; Translations: [Acquired deformities of toe(s), unspecified, right foot]99-34-1186StsvzwbjYhrxe bronchitis (2 sources)Acute bronchitis due to other specified organisms; Translations: [Acute bronchitis]31-90-3498UmbqnymiLwvttzw disorders (8 sources)Panic attack; Translations: [Panic disorder [episodic paroxysmal anxiety]]Onset: 41-90-9648BqbrdmzZenulvb obstructive pulmonary disease and bronchiectasis (20 sources)Mucopurulent chronic bronchitis; Translations: [Mucopurulent chronic bronchitis]ChronicDeficiency and other anemia (20 sources)Anemia; Translations: [Anemia, unspecified]Onset: 66-03-6854Lfqvdpne Disorders of lipid metabolism (20 sources)Familial hypercholesterolemia; Translations: [Familial hypercholesterolemia]Onset: 534252-21-4523ZsusgfbOmibsbvjxz disorders (20 sources)Basilio's esophagus; Translations: [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]Onset: 77-48-9798RnismthSlqtmsyhb hypertension (20 sources)Essential hypertension; Translations: [Essential (primary) hypertension]Onset: 825126-95-7146HrmfvtoZhshjjtinsyjh symptoms and ill- defined conditions (4 sources)Nocturia; Translations: [Nocturia]EpisodicHeadache; including migraine (4 sources)Headache; including migraine; Translations: [HEADACHE UNSPECIFIED] Onset: 72-98-7118Jeopiaewihw of prostate (20 sources)Nocturia due to benign prostatic hypertrophy; Translations: [Benign prostatic hyperplasia with lower urinary tract symptoms]Onset: 02-01-2024 45-28-9242TiawjbqNblkebg (3 sources)Pain in toe; Translations: [Tinea unguium]32-41-7660Pxiyirlh Osteoarthritis (20 sources)Osteoarthritis of acromioclavicular joint; Translations: [Primary osteoarthritis, unspecified shoulder]Onset: 01-29-2021 Resolved: 59-69-1588GyxgqbzAkabl aftercare (1 source)Other filler leaf cutter long (current) drug therapyEpisodicOther and unspecified benign neoplasm (3 sources)Adenomatous polyp of colon ; Translations: [Benign neoplasm of descending colon]EpisodicOther and unspecified benign neoplasm (20 sources)Tubular adenoma of colon; Translations: [Benign neoplasm of colon, unspecified]76-38-4845JemhkjewJgxkh and unspecified benign neoplasm (4 sources)Benign neoplasm of colon, unspecified; Translations: [Benign neoplasm of colon]EpisodicOther connective tissue disease (20 sources)Supraspinatus tear; Translations: [Unspecified rotator cuff tear or rupture of right shoulder, not specified as traumatic]14-41-5983EtowumudTuqps connective tissue disease (7 sources)Unspecified rotator cuff tear or rupture of right shoulder, not specified as traumatic; Translations: [Supraspinatus (muscle) (tendon) sprain] Onset: 01-29-2021 Resolved: 88-67-3531IkvricoqLsqok connective tissue disease (3 sources)Ganglion cyst; Translations: [Ganglion, unspecified site]Episodic Other connective tissue disease (20 sources)Tendonitis of right shoulder; Translations: [Other enthesopathies, not elsewhere classified]94-62-0536OanmeariIqwzv connective tissue disease (10 sources)Inflammation of rotator cuff tendon; Translations: [Other shoulder lesions, unspecified shoulder]74-92-2257JxqlfhcuOyxbu connective tissue disease (5 sources)Other shoulder lesions, unspecified shoulder; Translations: [Disorders of bursae and tendons in shoulder region, unspecified]03-07-2024 EpisodicOther connective tissue disease (5 sources)Capsulitis of metatarsophalangeal joint of right foot; Translations: [Other enthesopathy of right foot and ankle]51-76-9033PxubkuykWpfsg endocrine disorders (4 sources)Syndrome of inappropriate vasopressin secretion; Translations: [Syndrome of inappropriate secretionof antidiuretic hormone]ChronicOther endocrine disorders (1 source)Syndrome of inappropriate secretion of antidiuretic hormoneChronic Other lower respiratory disease (20 sources)Multiple nodules of lung; Translations: [Other nonspecific abnormal finding of lung field]98-37-8888VvwqkzytZquvvif on above:Serial LDCT completed:No suspicious nodules: 12/2021, 12/2022, 01/2024Other lower respiratory disease (4 sources)Other nonspecific abnormal finding of lung field; Translations: [Other nonspecific abnormal findingof lung field]EpisodicOther nervous system disorders (3 sources)Chronic pain; Translations: [Other chronic pain]ChronicOther non- traumatic joint disorders (20 sources)Pain in right shoulder; Translations: [Right shoulder pain]Onset: 01-29-2021 Resolved: 22-26-7438UntkdbwbHjyrv non-traumatic joint disorders (1 source)Shoulder pain; Translations: [Pain in right shoulder]03-05-2021 EpisodicOther screening for suspected conditions (not mental disorders or infectious disease) (12 sources)Encounter for screening for malignant neoplasm of prostate; Translations: [Screening for malignant neoplasms of prostate]EpisodicComment on above:PSA: 1.12 - 06/2024PSA: 0.81 - 07/2018, 0.98 - 06/2023, 1.12 - 06/2024Other upper respiratory disease (20 sources)Vasomotor rhinitis; Translations: [Vasomotor rhinitis]Onset: [id number] upper respiratory disease (2 sources)Vasomotor rhinitis; Translations: [Allergic rhinitis, cause unspecified]ChronicOther upper respiratory disease (11 sources)Hypertrophy of nasal turbinates; Translations: [Hypertrophy of nasal turbinates]15-00-3690YeatsazgRrltq upper respiratory disease (1 source)Hypertrophy of nasal turbinates; Translations: [Hypertrophy of nasal turbinates]00-58-3334CthcbdlxZlmxtbbl codes; unclassified (3 sources)Other specified postprocedural statesOnset: 04-09-2021 Resolved: 54-79-3089DkdqgfqbTifzgikp codes; unclassified (3 sources)Memory impairment; Translations: [Other amnesia]EpisodicSubstance- related disorders (20 sources)Smoker; Translations: [Nicotine dependence]Onset: 01-12-2022 53-02-7190AoetzobMxmqhlg (16 sources)Near syncope; Translations: [Syncope and collapse]03-63-7110Tugbuldi Comment on above:Problem List clean-up per request of Phys. EHR Cmte Past or Other Problems Problem ClassificationProblemDateDocumented DateEpisodic/ChronicFluid and electrolyte disorders (6 sources)Hyponatremia; Translations: [Hypo-osmolality and hyponatremia]Onset: 852301-31-0770RluupktfZbltayh and fatigue (9 sources)Fatigue; Translations: [Other fatigue]Onset: 32-34-3028PkvwmmihJbfmw aftercare (1 source)detention (current) use of aspirin; Translations: [SHELTER CURRENT USE OF ASPIRIN]Onset: 14-64-5939DkbdcaswPzhjb connective tissue disease (5 sources)Other enthesopathies, not elsewhere classified; Translations: [Disorders of bursae and tendons in shoulder region, unspecified]Onset: 06-48-3795MaxlvkvjEelso injuries and conditions due to external causes (1 source)Other adverse effects, not elsewhere classified, initial encounter; Translations: [OTH ADVERSE EFFECTS NEC INITIAL ENC]Onset: 18-73-1298Pgdixvxr Residual codes; unclassified (1 source)Other amnesia; Translations: [OTHER AMNESIA]Onset: 26-70-0102Gpgithca Residual codes; unclassified (1 source)Altered mental status, unspecified; Translations: [ALTERED MENTAL STATUS UNSPECIFIED]Onset: 22-45-1362WjitdbfrSiifwtmz codes; unclassified (1 source)Hallucinations, unspecified; Translations: [HALLUCINATIONS UNSPECIFIED]Onset: 18-04-0265Xtxibsti Results Test NameValueInterpretationReference RangeFacilityCT shoulder RT wo conon 42-22-7341MP shoulder RT wo [facility] [place] [address] CT Scan Report Signed Patient: Dai العلي MR#: [id number] : 1945 Acct:[id number] Age/Sex: 79 / M ADM Date: 01/31/25 Loc: CT Room: Type: [facility] Attending Dr: Hawa Starkey MD Copies to: [...] Ramires M.D. 01/31/2025 5:52 PM Dictation Location: [place] [address] Transcribed By: [facility] 01/31/251751 Dictated By: Doc Ramires II, MD 01/31/251747 Signed By: 01/31/251751[facility] Physician GroupBasophils Auto (Bld) [#/Vol] Ordered By: Shay Roca on 28-21-5773Jwmuzdaqj (Bld) [#/Vol]0.0 10 3/uL0.0-0.1 [facility] HospitalBasophils/100 WBC Auto (Bld)Ordered By: Shay Roca on 56-43-5569Gnagvratn/100 WBC (Bld)0.8 %0.2-2.0[facility] HospitalCholesterol in LDL Calc [Mass/Vol]Ordered By: Shay Roca on 13-55-1660Tpdroxqoivu in LDL [Mass/Vol]178.0 mg/dLClermont County HospitalComment on above:<100 mg/dl MIHOBQG587-633 mg/dl NEAR OR ABOVE RSSPMBY700- 159 mg/dl BORDERLINE HRRX798-406 mg/dl HIGH>190 mg/dl VERY HIGHCholesterol in VLDL Calc [Mass/Vol]Ordered By: Shay Roca on 65-88-9482Eekrjwjahqn in VLDL [Mass/Vol]18.0 mg/dLClermont County HospitalEosinophils/100 WBC Auto (Bld)Ordered By: Shay Roca on 61-14-3706Tjpackjypfx/100 WBC (Bld)3.1 % 0.9-7.0[facility] HospitalErythrocyte distribution width Auto (RBC) [Ratio]Ordered By: Shay Roca on 67-38-9996Jjqhrjseejg distribution width (RBC) [Ratio]12.3 %11.0-15.0[facility] HospitalGlobulin Calc (S) [Mass/Vol]Ordered By: Shay Roca on 86-70-2639Lydakmqm (S) [Mass/Vol]3.5 g/dLClermont County HospitalGlomerular filtration rate (GFR) estimation in non- AmericanOrdered By: Shay Roca on 10-29-2024 GFR/1.73 sq M.predicted among non-blacks MDRD (S/P/Bld) [Vol rate/Area] mL/min/{1.73_m2}>=60 mL/min/1.73m 2FSt. Vincent HospitalHematocrit Auto (Bld) [Volume fraction]Ordered By: Shay Roca on 38-66-5973Vqqgfjiluc (Bld) [Volume fraction]38.3 %Low42.0-54.0[facility] Hemoglobin [Mass/volume] in BloodOrdered By: Shay Roca on 10-29-2024 Hemoglobin (Bld) [Mass/Vol]13.0 g/dLLow14.0-18.0[facility] HospitalLaboratory - Chemistry and Chemistry - challengeOrdered By: Shay Roca on 23-48-8841Ixoktkb [Mass/Vol]4.1 g/dL3.4-5.0[facility] ALP [Catalytic activity/Vol]90 U/U21-694IgkrgfucdClermont County HospitalALT [Catalytic activity/Vol]53 U/W70-99TysvfwmmkClermont County HospitalAST [Catalytic activity/Vol]27 U/H20-08NolqgjsjuClermont County HospitalBilirubin [Mass/Vol]0.5 mg/dL0.2-1.0[facility] HospitalCalcium [Mass/Vol]9.2 mg/dL8.5-10.1FSt. Vincent HospitalChloride [Moles/Vol]98 mmol/L 98-107[facility] HospitalCholesterol [Mass/Vol]259 mg/dLHigh<=200 [facility] HospitalCholesterol in HDL [Mass/Vol]63 mg/bCIbew82-23 [facility] HospitalComment on above:> or =60 mg/dl - LOW CARDIOVASCULAR RISK<40 mg/dl - HIGH CARDIOVASCULAR RISKCO2 [Moles/Vol]28.8 mmol/L21.0-32.0[facility] HospitalCreatinine [Mass/Vol]0.78 mg/dL 0.70-1.30[facility] HospitalGFR/1.73 sq M.predicted MDRD (S/P/Bld) [Vol rate/Area]mL/min/{1.73_m2}>=60 mL/min/1.73m 2FSt. Vincent HospitalGlucose [Mass/Vol]98 mg/vZ39-315TgqqfuflnClermont County HospitalPotassium [Moles/Vol]4.0 mmol/L3.5-5.1FSt. Vincent HospitalProtein [Mass/Vol] 7.6 g/dL6.4-8.2FAkron Children's Hospitalodium [Moles/Vol]134 mmol/LLow 136-145Cl[facility] HospitalTriglyceride [Mass/Vol]90 mg/dL<=150 [facility] HospitalUrea nitrogen [Mass/Vol]17.0 mg/dL7.0-18.0 [facility] HospitalUrea nitrogen/Creatinine [Mass ratio]21.8 mg/mg [facility] HospitalLaboratory - Hematology and Cell countsOrdered By: Shay Roca on 04-21-2479Zetrfnxw granulocytes/100 WBC (Bld)0.2 %0.0-0.5 [facility] HospitalLeukocytes [#/volume] corrected for nucleated erythrocytes in Blood by Automated counOrdered By: Shay Roca on 10-29-2024 WBC corrected for nucl RBC Auto (Bld) [#/Vol]5.1 10 3/uL4.0-11.0[facility] HospitalLymphocytes Auto (Bld) [#/Vol]Ordered By: Shay Roca on 23-95-2375Ojdxxxeuuyk (Bld) [#/Vol]1.6 10 3/uL1.2-3.8[facility] HospitalLymphocytes/100 WBC Auto (Bld)Ordered By: Shay Roca on 50-65-9595Dutombddcir/100 WBC (Bld)31.7 %20.5-60.0[facility] HospitalMCH Auto (RBC) [Entitic mass]Ordered By: Shay Roca on 12-84-0458NYI (RBC) [Entitic mass]32.2 pg25.9-34.0[facility] HospitalMCHC Auto (RBC) [Mass/Vol]Ordered By: Shay Roca on 70-43-9617VRLD (RBC) [Mass/Vol]33.9 g/dL29.9-35.2FSt. Vincent HospitalMCV Auto (RBC) [Entitic vol] Ordered By: Shay Roca on 60-98-7092ZGA (RBC) [Entitic vol]94.8 fLHigh 80.0-94.0[facility] HospitalMonocytes Auto (Bld) [#/Vol]Ordered By: Shay Roca on 31-85-1556Rxcaknsgb (Bld) [#/Vol]0.9 10 3/uLHigh0.3-0.8 [facility] HospitalMonocytes/100 WBC Auto (Bld)Ordered By: Shay Roca on 55-68-6493Raycbhnjk/100 WBC (Bld)16.6 %High1.7-12.0[facility] HospitalNeutrophils Auto (Bld) [#/Vol]Ordered By: Shay Roca on 60-79-5961Uvhwytluyaq (Bld) [#/Vol]2.4 10 3/uL1.4-6.5FSt. Vincent HospitalNeutrophils/100 WBC Auto (Bld)Ordered By: Shay Roca on 59-97-1041Ybolyzfvtrc/100 WBC (Bld)47.6 %43.0-75.0[facility] HospitalNo Panel InformationOrdered By: Shay Roca on 41-65-4718Ugkddbfckzs # (Auto)0.2 10 3/uL0.0-0.7FSt. Vincent HospitalImmature Granulocyte # (Auto)0.01 10 3/uL0.00-0.03[facility] HospitalPlatelet mean volume Auto (Bld) [Entitic vol]Ordered By: Shay Roca on 45-62-7700Ilgvcwlr mean volume (Bld) [Entitic vol]9.2 fLLow9.5-13.5FSt. Vincent Hospital Platelets Auto (Bld) [#/Vol]Ordered By: Shay Roca on 21-06-3072Mywuvntpz (Bld) [#/Vol]306 10 3/wY737-388CapgrritfClermont County HospitalRBC Auto (Bld) [#/Vol]Ordered By: Shay Roca on 81-46-8318ETH (Bld) [#/Vol]4.04 10 6/uLLow 4.70-6.10[facility] Medical Centererum or plasma albumin/globulin mass ratioOrdered By: Shay Roca on 48-36-5428Cigybax/Globulin [Mass ratio]1.2 {ratio}[facility]view Medical Centererum or plasma anion gap determination Ordered By: Shay Roca on 66-03-0145Frxeh gap [Moles/Vol]11.2 mmol/LFAkron Children's Hospitalerum or plasma total cholesterol/high density lipoprotein (HDL) cholesterol mass ratOrdered By: Shay Roca on 10-29-2024 Cholesterol.total/Cholesterol in HDL [Mass ratio]4.1 {ratio}[facility] HospitalComment on above:3.3 - 4.4 LOW RISK4.4 - 7.1 AVERAGE RISK7.1 - 11.0 MODERATE RISK>11.0 HIGH RISKX-ray reportOrdered By: Bal Cuenca on 33-04-0654Ijoyo reportCLEVELAND CLINIC [facility] [address] [place] [address] XRay Report Signed Patient: Dai العلي MR#: [id number] : 1945 Acct:[id number] Age/Sex: 79 / M ADM Date: 5 Loc: [facility] Room: Type: [facility] Attending Dr: Hawa Starkey MD Copies to: [...] Jr., D.ONaeem 09/04/2024 12:31 PM Dictation Location: [place] [address] Transcribed By: [facility] 09/04/24 1231 Dictated By: Bal Cuenca Jr, DO 09/04/24 1230 Signed By: 09/04/24 1231 [facility] HospitalXR shoulder RT min 2V*on 24-85-2658KF shoulder RT min 2V*[facility] [address] [place] [address] XRay Report Signed Patient: Dai العلي MR#: [id number] : 1945 Acct:[id number] Age/Sex: 79 / M ADM Date: 09/04/24 Loc: [facility]: [facility] Attending Dr: Hawa Starkey MD Copies to: [...] Jr., ThaoONaeem 09/04/2024 12:31 PM Dictation Location: [place] [address] Transcribed By: [facility] 09/04/24 1231 Dictated By: Bal Cuenca Jr, DO 09/04/24 1230 Signed By: 09/04/24 1231NoSandhills Regional Medical Center Physician YilbfU8L with Estimated Average Gluon 50-72-2129Kbhlfjj [Mass/Vol]105 mg/dLNoSandhills Regional Medical Center Physician [facility] HospitalComment on above:Result Comment: PERFORMED BY: [address] [address] PATHOLOGIST LABORER GOLF COURSE FRACISCO ESPINOZA M.D.Performed By: #### A1C WTH eA, CHC CBC, LIPID, EMP PSA, CMP #### [facility] [address] [place] [address] IKMCzP7g (Bld) [Mass fraction]5.3 %Normal4.3-5.6The [facility] Physician GroupComment on above:Result Comment: Increased risk for diabetes: 5.7 - 6.4 diabetes: >6.4 glycemic control for adults with diabetes: <7.0Performed By: #### A1C WTH eA, CHC CBC, LIPID, EMP PSA, CMP #### [facility] [address] StreetAlanine aminotransferase [Enzymatic activity/volume] in Serum or PlasmaOrdered By: Phil Pierre on 34-42-2017EKB [Catalytic activity/Vol] Alanine aminotransferase [Enzymatic activity/volume] in Serum or Plasma7-52 [facility] HospitalAlbumin [Mass/volume] in Serum or Plasma by Bromocresol green (BCG) dye binding methoOrdered By: Phil Pierre on 07-03-2024 Albumin BCG dye [Mass/Vol]Albumin [Mass/volume] in Serum or Plasma by Bromocresol green (BCG) dye binding metho3.5-5.7FSt. Vincent HospitalAlkaline phosphatase [Enzymatic activity/volume] in Serum or PlasmaOrdered By: Phil Pierre on 57-96-4359JLA [Catalytic activity/Vol]Alkaline phosphatase [Enzymatic activity/volume] in Serum or Haycwp67-487ZpxyigtreClermont County HospitalAspartate aminotransferase [Enzymatic activity/volume] in Serum or Plasma Ordered By: Phil Pierre on 83-96-4842VRX [Catalytic activity/Vol]Aspartate aminotransferase [Enzymatic activity/volume] in Serum or Pbgltv10-85SzrenscwnClermont County HospitalBasophils Auto (Bld) [#/Vol]Ordered By: Phil Pierre on 93-19-7166Nhgmiabjm (Bld) [#/Vol]Automated basophil count0.0-0.2FSt. Vincent HospitalBasophils/100 WBC Auto (Bld)Ordered By: Phil Pierre on 22-28-7677Otzhstxiz/100 WBC (Bld)Automated basophil %.[facility] HospitalBilirubin.total [Mass/volume] in Serum or PlasmaOrdered By: Phil Pierre on 25-13-9198Myshvlamo [Mass/Vol]Bilirubin.total [Mass/volume] in Serum or Plasma 0.3-1.0[facility] HospitalBlood estimated average glucose determination by estimation from glycated hemoglobinOrdered By: Phil Pierre on 31-47-5639Qhyyipv glucose Estimated from glycated hemoglobin (Bld) [Mass/Vol] Glucose mean value [Mass/volume] in Blood Estimated from glycated hemoglobin [facility] HospitalCalcium [Mass/volume] in Serum or PlasmaOrdered By: Phil Pierre on 54-97-6889Nogjefm [Mass/Vol]Calcium [Mass/volume] in Serum or PlasmaHigh8.6-10.3FSt. Vincent HospitalCarbon dioxide, total [Moles/volume] in Serum or PlasmaOrdered By: Phil Pierre on 85-52-1609JR8 [Moles/Vol]Carbon dioxide, total [Moles/volume] in Serum or Hrrzcx11.0-31.0 [facility] HospitalChloride [Moles/volume] in Serum or Plasma Ordered By: Phil Pierre on 58-43-5130Dxgfyayh [Moles/Vol]Chloride [Moles/volume] in Serum or ZqxlipKtx11-945NlhcrtpetClermont County HospitalCholesterol [Mass/volume] in Serum or PlasmaOrdered By: Phil Pierre on 30-17-0288Rvnwydmahvr [Mass/Vol]Cholesterol [Mass/volume] in Serum or EzwsqnMruk254-566XhknhgpfrClermont County HospitalComment on above:Chol less than 200 mg/dl low riskChol 201-239 mg/dl borderline riskChol 240 mg/dl and greater high riskCholesterol in HDL [Mass/volume] in Serum or PlasmaOrdered By: Phil Pierre on 07-03-2024 Cholesterol in HDL [Mass/Vol]Serum or plasma high density lipoprotein (HDL) cholesterol uephbfkwihy63-48AkvouadrtClermont County HospitalComment on above: HDL CHOL ATP-III CLASSIFICATION Cardiovascular RiskHDL > or equal to 60 mg/dL LOWHDL < 40 mg/dL HIGHCholesterol in LDL Calc [Mass/Vol]Ordered By: Phil Pierre on 80-31-6807Ktcpazmkplt in LDL [Mass/Vol]Cholesterol in LDL [Mass/volume] in Serum or Plasma by calculationHigh0-100Cl[facility] County HospitalComment on above:LDL ATP III CLASSIFICATIONLDL less than 100 mg/dL OptimalLDL 100-129 mg/dL Near or above rxpgsnaNMF830-980 mg/dL Borderline highLDL 160-189 mg/dL HighLDL greater than 189 mg/dL Very highCholesterol in VLDL Calc [Mass/Vol] Ordered By: Phil Pierre on 41-82-5228Trmqufbjhsx in VLDL [Mass/Vol]Cholesterol in VLDL [Mass/volume] in Serum or Plasma by calculationClermont County HospitalComplete Blood Count no reflexon 85-37-8626Rufzgtgfz (Bld) [#/Vol]0.1 10*3/uLNormal0.0-0.2The [facility] Physician GroupComment on above:Result Comment: PERFORMED BY: [place] [address] PATHOLOGIST LABORER GOLF COURSE FRACISCO ESPINOZA M.D.Performed By: #### A1C WTH eA, CHC CBC, LIPID, EMP PSA, CMP #### [facility] [address] [place] [address] USABasophils/100 WBC (Bld)1.2 %Normal.The [facility] Physician GroupComment on above:Performed By: #### A1C WTH eA, CHC CBC, LIPID, EMP PSA, CMP #### [place] [address] USAEosinophils (Bld) [#/Vol]0.2 10*3/uLNormal0.0-0.45The [facility] Physician GroupComment on above:Performed By: #### A1C WTH eA, CHC CBC, LIPID, EMP PSA, CMP #### [place] [id number] USAEosinophils/100 WBC (Bld)3.7 %Normal.The [facility] Physician GroupComment on above:Performed By: #### A1C WTH eA, CHC CBC, LIPID, EMP PSA, CMP #### [place] [address] USAErythrocyte distribution width (RBC) [Ratio]12.5 %Normal 12.0-14.8The [facility] Physician GroupComment on above:Performed By: #### A1C WTH eA, CHC CBC, LIPID, EMP PSA, CMP #### [address] [place] [address] USAHematocrit (Bld) [Volume fraction]41.7 %Cfzwvo84.8-50.0The [facility] Physician GroupComment on above:Performed By: #### A1C WTH eA, CHC CBC, LIPID, EMP PSA, CMP #### [place] [address] USAHemoglobin (Bld) [Mass/Vol]14.2 g/eTUakpnq73.0-17.0The [facility] Physician GroupComment on above:Performed By: #### A1C WTH eA, CHC CBC, LIPID, EMP PSA, CMP #### [place] [address] USALymphocytes (Bld) [#/Vol]1.8 10*3/uLNormal1.00-4.8The [facility] Physician GroupComment on above:Performed By: #### A1C WTH eA, CHC CBC, LIPID, EMP PSA, CMP #### [place] [address] USALymphocytes/100 WBC (Bld)31.5 %Normal.The [facility] Physician GroupComment on above:Performed By: #### A1C WTH eA, CHC CBC, LIPID, EMP PSA, CMP #### [place] [address] USAH (RBC) [Entitic mass]33.1 ktOziihi76.5-35.2The [facility] Physician GroupComment on above:Performed By: #### A1C WTH eA, CHC CBC, LIPID, EMP PSA, CMP #### [place] [address] USAV (RBC) [Entitic vol]97.1 xGYayqct02.5-101The [facility] Physician GroupComment on above:Performed By: #### A1C WTH eA, CHC CBC, LIPID, EMP PSA, CMP #### [place] [address] USAMean Corpuscular HGB Conc34.1 g/sNScjisu05.5-35.6The [facility] Physician GroupComment on above:Performed By: #### A1C WTH eA, CHC CBC, LIPID, EMP PSA, CMP #### [facility] [address] [place] [address] USAMonocytes (Bld) [#/Vol]1.0 10*3/uLHigh0.0-0.8The [facility] Physician GroupComment on above:Performed By: #### A1C WTH eA, CHC CBC, LIPID, EMP PSA, CMP #### [facility] [address] [place] [address] USAMonocytes/100 WBC (Bld)17.4 %Normal.The [facility] Physician GroupComment on above:Performed By: #### A1C WTH eA, CHC CBC, LIPID, EMP PSA, CMP #### [facility] [address] [place] [address] USANeutrophils (Bld) [#/Vol]2.7 10*3/uLNormal1.8-7.7The [facility] Physician GroupComment on above:Performed By: #### A1C WTH eA, CHC CBC, LIPID, EMP PSA, CMP #### [facility] [address] [place] [address] USANeutrophils/100 WBC (Bld)46.2 %Normal.The [facility] Physician GroupComment on above:Performed By: #### A1C WTH eA, CHC CBC, LIPID, EMP PSA, CMP #### [facility] [address] [place] [address] USANRBC%0.2 /100{WBC}Normal0-0.5The [facility] Comment on above:Performed By: #### A1C WTH eA, CHC CBC, LIPID, EMP PSA, CMP #### [facility] [address] [place] [address] USAPlatelet mean volume (Bld) [Entitic vol]8.0 fLNormal 6.6-10.1The [facility] Physician GroupComment on above:Performed By: #### A1C WTH eA, CHC CBC, LIPID, EMP PSA, CMP #### [facility] [address] [place] [address] USAPlatelets (Bld) [#/Vol]310 10*3/wLHdgdee797-614Adj [facility] Physician GroupComment on above:Performed By: #### A1C WTH eA, CHC CBC, LIPID, EMP PSA, CMP #### [facility] [address] [place] [address] USARBC (Bld) [#/Vol]4.29 10*6/uLNormal3.90-5.60The [facility] Physician GroupComment on above:Performed By: #### A1C WTH eA, CHC CBC, LIPID, EMP PSA, CMP #### [facility] [address] [place] [address] USAWBC (Bld) [#/Vol]5.8 10*3/uLNormal4.1-10.5The [facility] Physician GroupComment on above:Performed By: #### A1C WTH eA, CHC CBC, LIPID, EMP PSA, CMP #### [place] [address] USAComprehensive Metabolic Panelon 65-48-7781Rdztsgr [Mass/Vol]4.8 g/dLNormal3.5-5.7The [facility] Physician GroupComment on above: Performed By: #### A1C WTH eA, CHC CBC, LIPID, EMP PSA, CMP #### [place] [address] USAAlbumin/Globulin [Mass ratio]1.7 {ratio}NormalThe [facility] Physician GroupComment on above:Performed By: #### A1C WTH eA, CHC CBC, LIPID, EMP PSA, CMP #### [place] [address] USAALP [Catalytic activity/Vol]78 U/AVlcfpy01-930Rmw [facility] Physician GroupComment on above:Performed By: #### A1C WTH eA, CHC CBC, LIPID, EMP PSA, CMP #### [place] [address] USAALT [Catalytic activity/Vol]28 U/LNormal7-52The [facility] Physician GroupComment on above:Performed By: #### A1C WTH eA, CHC CBC, LIPID, EMP PSA, CMP #### [facility] [address] [place] [address] USAAnion gap [Moles/Vol]13.5 mmol/LNormal6.0-15.0The [facility] Physician GroupComment on above:Performed By: #### A1C WTH eA, CHC CBC, LIPID, EMP PSA, CMP #### [facility] [address] [place] [address] USAAST [Catalytic activity/Vol]30 U/JVhpefp55-58Zss [facility] Physician GroupComment on above:Performed By: #### A1C WTH eA, CHC CBC, LIPID, EMP PSA, CMP #### [place] [address] USABilirubin [Mass/Vol]0.8 mg/dLNormal0.3-1.0The [facility] Physician GroupComment on above:Performed By: #### A1C WTH eA, CHC CBC, LIPID, EMP PSA, CMP #### [place] [address] USACalcium [Mass/Vol]10.5 mg/dLHigh8.6-10.3The [facility] Physician GroupComment on above:Performed By: #### A1C WTH eA, CHC CBC, LIPID, EMP PSA, CMP #### [place] [address] USAChloride [Moles/Vol]96 mmol/HKne57-209Nqk [facility] Physician GroupComment on above:Performed By: #### A1C WTH eA, CHC CBC, LIPID, EMP PSA, CMP #### [place] [address] USACO2 [Moles/Vol]28.6 mmol/QBxtatb52.0-31.0The [facility] Physician GroupComment on above:Performed By: #### A1C WTH eA, CHC CBC, LIPID, EMP PSA, CMP #### [place] [address] USACreatinine [Mass/Vol]0.98 mg/dLNormal0.70-1.30The [facility] Physician GroupComment on above:Performed By: #### A1C WTH eA, CHC CBC, LIPID, EMP PSA, CMP #### [facility] [address] [place] [address] USAGFR/1.73 sq M.predicted MDRD (S/P/Bld) [Vol rate/Area] mL/min/{1.73_m2}NormalThe [facility] Physician GroupComment on above:Performed By: #### A1C WTH eA, CHC CBC, LIPID, EMP PSA, CMP #### [facility] [address] [place] [address] USAGlobulin (S) [Mass/Vol]2.9 g/dLNormalThe [facility] Physician GroupComment on above:Performed By: #### A1C WTH eA, CHC CBC, LIPID, EMP PSA, CMP #### [place] [address] USAGlucose [Mass/Vol]106 mg/[id number] [facility] Physician GroupComment on above:Result Comment: Random Glucose Reference Range is dependent on time and content of last meal. Glucose of more than 200 mg/dL in a nonstressed, ambulatory subject supports the diagnosis of Diabetes Mellitus. ADA recommended reference rangePerformed By: #### A1C WTH eA, CHC CBC, LIPID, EMP PSA, CMP #### [place] [address] USAPotassium [Moles/Vol]4.1 mmol/LNormal3.5-5.1The [facility] Physician GroupComment on above:Performed By: #### A1C WTH eA, CHC CBC, LIPID, EMP PSA, CMP #### [place] [address] USAProtein [Mass/Vol]7.7 g/dLNormal6.4-8.9The [facility] Physician GroupComment on above:Performed By: #### A1C WTH eA, CHC CBC, LIPID, EMP PSA, CMP #### [place] [address] USASodium [Moles/Vol]134 mmol/KHlh853-795Pai [facility] Physician GroupComment on above:Performed By: #### A1C WTH eA, CHC CBC, LIPID, EMP PSA, CMP #### [address] [place] [address] USAUrea nitrogen [Mass/Vol]15 mg/dLNormal7-25The [facility] Physician GroupComment on above:Performed By: #### A1C [facility] eA, [facility] CBC, LIPID, EMP PSA, CMP #### [facility] [address] [place] [address] USACreatinine [Mass/volume] in Serum or PlasmaOrdered By: Phil Pierre on 77-25-5542Rrvvybjoou [Mass/Vol]Creatinine [Mass/volume] in Serum or Plasma0.70-1.30[facility] HospitalEmployee PSA Totalon 80-35-9693CEN Total ([facility] Health Orders)1.120 ng/mLNormal0.000-4.000The [facility] Rex Physician GroupComment on above:Result Comment: Serial tumor marker results determined by assays using different manufacturers or methods may not be comparable. [facility] fire warden and method: This Week InEL DXI, CHEMILUMINESCENT IMMUNOASSAY. PERFORMED BY: [address] [place] [address] PATHOLOGIST LABORER GOLF COURSE FRACISCO ESPINOZA M.D.Performed By: #### A1C [facility] Wesley, [facility] CBC, LIPID, EMP PSA, CMP #### [facility] [address] [place] [address] USAEosinophils Auto (Bld) [#/Vol]Ordered By: Phil Pierre on 61-09-4261Jlngibhhova (Bld) [#/Vol]Automated eosinophil count0.0-0.45[facility] HospitalEosinophils/100 WBC Auto (Bld)Ordered By: Phil Pierre on 65-06-3287Cogrhtrxmjd/100 WBC (Bld)Automated eosinophil %.[facility] HospitalErythrocyte distribution width Auto (RBC) [Ratio]Ordered By: Phil Pierre on 53-83-0816Iseftmwgaut distribution width (RBC) [Ratio]Erythrocyte distribution width [Ratio] by Automated count12.0-14.8[facility] HospitalGlobulin Calc (S) [Mass/Vol]Ordered By: Phil Pierre on 86-39-7217Tykgpjsp (S) [Mass/Vol]Serum globulin measurement by calculation (mass/volume)[facility] HospitalGlucose [Mass/volume] in Serum or PlasmaOrdered By: Phil Pierre on 27-20-7298Yklfcwk [Mass/Vol]Glucose [Mass/volume] in Serum or Plasma Wrra49-434JjivlyobnClermont County HospitalComment on above:ADA recommended reference rangeRandom Glucose Reference Range is dependent on time and content of last meal. Glucose of more than 200 mg/dL in a nonstressed, ambulatory subject supports the diagnosisof Diabetes Mellitus.Hematocrit Auto (Bld) [Volume fraction]Ordered By: Phil Pierre on 12-04-9953Ssjwvzdtku (Bld) [Volume fraction] Hematocrit [Volume Fraction] of Blood by Automated count38.8-50.0[facility] HospitalHemoglobin A1c/Hemoglobin.total in BloodOrdered By: Phil Pierre on 97-62-8300DjH1b (Bld) [Mass fraction]Hemoglobin A1c percentage4.3-5.6 [facility] HospitalComment on above:Increased risk for diabetes: 5.7 - 6.4diabetes: >6.4glycemic control for adults with diabetes: <7.0 Hemoglobin [Mass/volume] in BloodOrdered By: Phil Pierre on 83-81-6392Qgblpjuvbh (Bld) [Mass/Vol]Hemoglobin [Mass/volume] in Blood13.0-17.0[facility] HospitalLeukocytes [#/volume] corrected for nucleated erythrocytes in Blood by Automated counOrdered By: Phil Pierre on 58-24-2141YDQ corrected for nucl RBC Auto (Bld) [#/Vol]Leukocytes [#/volume] corrected for nucleated erythrocytes in Blood by Automated coun4.1-10.5FSt. Vincent Hospital Lipid Panelon 88-06-7689Kyeynhdzrmg [Mass/Vol]301 mg/iVNdeh592-059Aje [facility] Physician GroupComment on above:Result Comment: Chol less than 200 mg/dl low risk Chol 201-239 mg/dl borderline risk Chol 240 mg/dl and greater high riskPerformed By: #### A1C WTH eA, CHC CBC, LIPID, EMP PSA, CMP #### [facility] [address] [place] [address] USACholesterol in HDL [Mass/Vol]65 mg/sPAnogyj79-74Rju [facility] Physician GroupComment on above:Result Comment: HDL CHOL ATP-III CLASSIFICATION Cardiovascular Risk HDL > or equal to 60 mg/dL LOW HDL < 40 mg/dL HIGHPerformed By: #### A1C WT eA, CHC CBC, LIPID, EMP PSA, CMP #### [facility] [address] [place] [address] USACholesterol.total/Cholesterol in HDL [Mass ratio]4.6 {ratio}Normal<5.0The [facility] Rex Physician GroupComment on above:Result Comment: PERFORMED BY: [place] [address] PATHOLOGIST LABORER GOLF COURSE FRACISCO ESPINOZA M.D.Performed By: #### A1C WTH eA, CHC CBC, LIPID, EMP PSA, CMP #### [facility] [address] [place] [address] USALDL Cholesterol,Fbfwzkhurt914 mg/dLHigh0-100The [facility] Physician GroupComment on above:Result Comment: LDL ATP III CLASSIFICATION LDL less than 100 mg/dL Optimal LDL 100-129 mg/dL Near or above optimal LDL 130-159 mg/dL Borderline high LDL 160-189 mg/dL High LDL greater than 189 mg/dL Very highPerformed By: #### A1C WTH eA, [facility] CBC, LIPID, EMP PSA, CMP #### [facility] [address] [place] [address] USATriglyceride w/Thhwrs773 mg/dLHigh0-149The [facility] Physician GroupComment on above:Result Comment: TRIG ATP III CLASSIFICATION TRIG less than 150 mg/dL Normal TRIG 150-199 mg/dL Borderline high TRIG 200-500 mg/dL High TRIG greater than 500 mg/dL Very high Standard traceable to the Center for Disease Conrtrol and Prevention (CDC) test method.Performed By: #### A1C WTH eA, CHC CBC, LIPID, EMP PSA, CMP #### [facility] [address] [place] [address] USAVLDL EAGJRPASIRI59 mg/dLNormalThe [facility] Physician GroupComment on above:Performed By: #### A1C WTH eA, CHC CBC, LIPID, EMP PSA, CMP #### [facility] [address] [place] [address] USALymphocytes Auto (Bld) [#/Vol]Ordered By: Phil Pierre on 36-52-2985Ugatnnvzjur (Bld) [#/Vol]Lymphocytes [#/volume] in Blood by Automated count1.00-4.8[facility] HospitalLymphocytes/100 WBC Auto (Bld) Ordered By: Phil Pierre on 77-81-3972Dlftppiuvga/100 WBC (Bld)Lymphocytes/100 leukocytes in Blood by Automated count.[facility] HospitalH Auto (RBC) [Entitic mass]Ordered By: Phil Pierre on 38-96-4966JMF (RBC) [Entitic mass]MCH [Entitic mass] by Automated count27.5-35.2FSt. Vincent HospitalMCHC Auto (RBC) [Mass/Vol]Ordered By: Phil Pierre on 51-99-0012KFDU (RBC) [Mass/Vol]MCHC [Mass/volume] by Automated count32.5-35.6FSt. Vincent HospitalMCV Auto (RBC) [Entitic vol]Ordered By: Phil Pierre on 07-03-2024 MCV (RBC) [Entitic vol]MCV [Entitic volume] by Automated count83.5-101Cl[facility] County HospitalMonocytes Auto (Bld) [#/Vol]Ordered By: Phil Pierre on 69-91-8451Wpqlygtbc (Bld) [#/Vol]Automated blood monocyte countHigh0.0-0.8 [facility] HospitalMonocytes/100 WBC Auto (Bld)Ordered By: Phil Pierre on 12-32-1598Eyurhuwff/100 WBC (Bld)Automated monocyte %.[facility] HospitalNeutrophils Auto (Bld) [#/Vol]Ordered By: Phil Pierre on 39-73-5220Mmehiodfghv (Bld) [#/Vol]Neutrophils [#/volume] in Blood by Automated count1.8-7.7FSt. Vincent HospitalNeutrophils/100 WBC Auto (Bld) Ordered By: Phil Pierre on 89-97-8638Pnaopzinker/100 WBC (Bld)Automated neutrophil %.[facility] HospitalNo Panel InformationOrdered By: Phil Pierre on 75-58-8919Cffrsuwwd GFR (CKD-EPI)> 60.0 mL/MinClermont County HospitalPharmacy Creatinine Clearance (ChemN/AFSt. Vincent HospitalNucleated erythrocytes [Presence] in Blood by Automated countOrdered By: Phil Pierre on 48-22-7469Jiqkpdpin RBC Auto Ql (Bld)Nucleated erythrocytes [Presence] in Blood by Automated count0-0.5FSt. Vincent Hospital Platelet mean volume Auto (Bld) [Entitic vol]Ordered By: Phil Pierre on 89-87-4878Svzholbn mean volume (Bld) [Entitic vol]Platelet mean volume [Entitic volume] in Blood by Automated count6.6-10.1FSt. Vincent Hospital Platelets Auto (Bld) [#/Vol]Ordered By: Phil Pierre on 80-15-9862Eftyckfoz (Bld) [#/Vol]Platelets [#/volume] in Blood by Automated -966SwlhaebquClermont County HospitalPotassium [Moles/volume] in Serum or PlasmaOrdered By: Phil Pierre on 89-41-2445Kxxxmzrtt [Moles/Vol]Potassium [Moles/volume] in Serum or Plasma 3.5-5.1FSt. Vincent HospitalProstate specific Ag [Mass/volume] in Serum or PlasmaOrdered By: Phil Pierre on 44-94-8612Czfzravs specific Ag [Mass/Vol]Prostate specific Ag [Mass/volume] in Serum or Plasma0.000-4.000 [facility] HospitalComment on above:Serial tumor marker results determined by assays using different manufacturers or methods may not be comparable.[facility] fire warden and method:SAUL OperaxEL DXI, CHEMILUMINESCENT IMMUNOASSAY.Protein [Mass/volume] in Serum or PlasmaOrdered By: Phil Pierre on 65-72-5898Ailvoaw [Mass/Vol]Protein [Mass/volume] in Serum or Plasma6.4-8.9[facility] HospitalRBC Auto (Bld) [#/Vol]Ordered By: Phil Pierre on 69-17-0133IIB (Bld) [#/Vol]Erythrocytes [#/volume] in Blood by Automated count3.90-5.60[facility] Centererum or plasma albumin/globulin mass ratioOrdered By: Phil Pierre on 84-27-9736Vpogpee/Globulin [Mass ratio]Serum or plasma albumin/globulin mass ratioSouthview Medical Centererum or plasma anion gap determinationOrdered By: Phil Pierre on 43-43-9310Vthpi gap [Moles/Vol]Serum or plasma anion gap determination6.0-15.0 [facility] Centererum or plasma total cholesterol/high density lipoprotein (HDL) cholesterol mass ratOrdered By: Phil Pierre on 07-03-2024 Cholesterol.total/Cholesterol in HDL [Mass ratio]Serum or plasma total cholesterol/high density lipoprotein (HDL) cholesterol mass rat<5.0[facility] Medical Centerodium [Moles/volume] in Serum or PlasmaOrdered By: Phil Pierre on 15-93-2573Ekrsnc [Moles/Vol]Sodium [Moles/volume] in Serum or PlasmaLow 136-145Cl[facility] HospitalTriglyceride [Mass/volume] in Serum or PlasmaOrdered By: Phil Pierre on 89-91-0852Kfsojliqrsfo [Mass/Vol]Triglyceride [Mass/volume] in Serum or PlasmaHigh0-149[facility] Comment on above:TRIG ATP III CLASSIFICATIONTRIG less than 150 mg/dL NormalTRIG 150-199 mg/dL Borderline highTRIG 200-500 mg/dL High TRIG greater than 500 mg/dL Very highStandard traceable to the Center for Disease Conrtrol and Prevention (CDC) test method.Urea nitrogen [Mass/volume] in Serum or PlasmaOrdered By: Phil Pierre on 86-44-1095Uasb nitrogen [Mass/Vol]Urea nitrogen [Mass/volume] in Serum or Plasma7-25Cl[facility] HospitalWBC Auto (Bld) [#/Vol] Ordered By: Phil Pierre on 22-56-8695VDK (Bld) [#/Vol]Leukocytes [#/volume] in Blood by Automated count4.1-10.5FSt. Vincent HospitalXR Foot - right 3 Viewson 96-95-5451Vyxglks Result: Notable degenerative changes to 1st MPJ with decreased joint space narrowing and negative fractures identified with increase of interphalangeal angle of the right hallux IPJNOCumberland [facility] Hospital Radiology Study observation (narrative)NOMS HealthcareInfluenza virus B Ag [Presence] in Upper respiratory specimen by Rapid immunoassayon 64-09-4315ISJUF Ag IA.rapid Ql (Nph)Influenza virus B Ag [Presence] in Upper respiratory specimen by Rapid immunoassayClermont County HospitalNo Panel Informationon 69-26-5637Jllyaiidy Type A (Rapid)NegativeClermont County HospitalPOC SARS CoV-2 AntigenNegativeClermont County Hospital Basophils Auto (Bld) [#/Vol]on 81-34-3143Cllgrqbed (Bld) [#/Vol]0.1 10 3/uL 0.0-0.1FSt. Vincent HospitalBasophils/100 WBC Auto (Bld)on 29-51-5186Vlzqkzvja/100 WBC (Bld)0.7 %0.2-2.0[facility] Eosinophils/100 WBC Auto (Bld)on 41-90-7279Vwkiehbgbbd/100 WBC (Bld)2.8 %0.9-7.0 [facility] HospitalErythrocyte distribution width Auto (RBC) [Ratio]on 68-82-7591Bdfcjxtcsti distribution width (RBC) [Ratio]11.5 %11.0-15.0 [facility] HospitalHematocrit Auto (Bld) [Volume fraction]on 41-49-8171Urygycrutk (Bld) [Volume fraction]40.7 %Low42.0-54.0[facility] HospitalHemoglobin [Mass/volume] in Bloodon 63-27-8194Sydkfieqch (Bld) [Mass/Vol]13.6 g/dLLow14.0-18.0[facility] HospitalIron binding capacity [Mass/volume] in Serum or Plasmaon 76-62-9561Zvpm binding capacity [Mass/Vol]362.0 ug/dL250.0-450.0[facility] HospitalIron saturation [Mass Fraction] in Serum or Plasmaon 90-77-5852Ijug saturation [Mass fraction] 32.3 %[facility] HospitalLaboratory - Chemistry and Chemistry - challengeon 46-50-0698Ngsiywshw (Vitamin B12) [Mass/Vol]1150.0 pg/mLHigh 193.0-986.0[facility] HospitalFerritin [Mass/Vol]277.0 ng/mL 26.0-388.0[facility] HospitalIron [Mass/Vol]117.0 ug/dL65.0-175.0 [facility] HospitalLaboratory - Hematology and Cell countson 62-44-8064Sbraskqf granulocytes/100 WBC (Bld)0.3 %0.0-0.5FSt. Vincent HospitalLeukocytes [#/volume] corrected for nucleated erythrocytes in Blood by Automated counon 76-55-2565HSL corrected for nucl RBC Auto (Bld) [#/Vol]6.8 10 3/uL4.0-11.0[facility] HospitalLymphocytes Auto (Bld) [#/Vol]on 55-43-6681Vjbkyqdsrla (Bld) [#/Vol]1.8 10 3/uL1.2-3.8[facility] HospitalLymphocytes/100 WBC Auto (Bld)on 10-10-2023 Lymphocytes/100 WBC (Bld)25.9 %20.5-60.0[facility] HospitalH Auto (RBC) [Entitic mass]on 21-52-1860UDQ (RBC) [Entitic mass]32.4 pg25.9-34.0 [facility] HospitalMCHC Auto (RBC) [Mass/Vol]on 56-54-1962KPZM (RBC) [Mass/Vol]33.4 g/dL29.9-35.2FSt. Vincent HospitalMCV Auto (RBC) [Entitic vol]on 88-49-3834USI (RBC) [Entitic vol]96.9 fIFwon51.0-94.0 [facility] HospitalMonocytes Auto (Bld) [#/Vol]on 10-10-2023 Monocytes (Bld) [#/Vol]1.0 10 3/uLHigh0.3-0.8[facility] Monocytes/100 WBC Auto (Bld)on 85-01-0648Euzcthpeu/100 WBC (Bld)15.2 %High 1.7-12.0[facility] HospitalNeutrophils Auto (Bld) [#/Vol]on 99-56-4004Uvnjjyqtpjq (Bld) [#/Vol]3.7 10 3/uL1.4-6.5FSt. Vincent HospitalNeutrophils/100 WBC Auto (Bld)on 56-85-6686Yrjphgsgynd/100 WBC (Bld)55.1 % 43.0-75.0[facility] HospitalNo Panel Informationon 10-10-2023 Eosinophils # (Auto)0.2 10 3/uL0.0-0.7FSt. Vincent HospitalFolate 26.40 ng/mL8.60-58.90Cl[facility] HospitalImmature Granulocyte # (Auto)0.02 10 3/uL0.00-0.03[facility] HospitalPlatelet mean volume Auto (Bld) [Entitic vol]on 71-41-5414Avdxijix mean volume (Bld) [Entitic vol] 9.0 fLLow9.5-13.5FSt. Vincent HospitalPlatelets Auto (Bld) [#/Vol]on 04-57-7429Nhptlhypx (Bld) [#/Vol]320 10 3/tP066-427HqpqwdguwClermont County HospitalRBC Auto (Bld) [#/Vol]on 82-95-6535DYZ (Bld) [#/Vol]4.20 10 6/uLLow 4.70-6.10[facility] HospitalBasophils Auto (Bld) [#/Vol]on 81-38-9672Dzrgjlcdk (Bld) [#/Vol]0.0 10 3/uL0.0-0.1FSt. Vincent HospitalBasophils/100 WBC Auto (Bld)on 81-67-6085Wceyckdhd/100 WBC (Bld)0.5 % 0.2-2.0[facility] HospitalCholesterol in LDL Calc [Mass/Vol]on 89-08-3602Bhbazojywlm in LDL [Mass/Vol]187.0 mg/dLClermont County HospitalComment on above:<100 mg/dl UKRNVFC484-999 mg/dl NEAR OR ABOVE FDLHWEQ051- 159 mg/dl BORDERLINE GEOF152-351 mg/dl HIGH>190 mg/dl VERY HIGHCholesterol in VLDL Calc [Mass/Vol]on 65-36-1177Qgkdvciyxlq in VLDL [Mass/Vol]20.4 mg/dL [facility] HospitalEosinophils/100 WBC Auto (Bld)on 06-29-2023 Eosinophils/100 WBC (Bld)3.8 %0.9-7.0[facility] Erythrocyte distribution width Auto (RBC) [Ratio]on 97-71-7438Xaqmteuutby distribution width (RBC) [Ratio]11.9 %11.0-15.0[facility] Estimated glomerular filtration rate (GFR) non- Americanon 06-29-2023 GFR/1.73 sq M.predicted among non-blacks MDRD (S/P/Bld) [Vol rate/Area] mL/min/{1.73_m2}>=60Cl[facility] HospitalGlobulin Calc (S) [Mass/Vol]on 49-92-1092Nbahsamu (S) [Mass/Vol]3.8 g/dLClermont County HospitalGlucose mean value [Mass/volume] in Blood Estimated from glycated hemoglobinon 07-65-8274Fyxypfd glucose Estimated from glycated hemoglobin (Bld) [Mass/Vol]103 mg/dLClermont County HospitalHematocrit Auto (Bld) [Volume fraction]on 15-19-8188Xtzpwkarnc (Bld) [Volume fraction]40.0 %42.0-54.0 [facility] HospitalHemoglobin [Mass/volume] in Bloodon 06-29-2023 Hemoglobin (Bld) [Mass/Vol]13.3 g/dL14.0-18.0[facility] - Chemistry and Chemistry - challengeon 83-46-8104Wtczfhs [Mass/Vol] 4.2 g/dL3.4-5.0[facility] HospitalALP [Catalytic activity/Vol]89 U/B84-802GstdnmedaClermont County HospitalALT [Catalytic activity/Vol]39 U/L 16-63Cl[facility] HospitalAST [Catalytic activity/Vol]27 U/L15-37 [facility] HospitalBilirubin [Mass/Vol]0.5 mg/dL0.2-1.0[facility] HospitalCalcium [Mass/Vol]9.6 mg/dL8.5-10.1FSt. Vincent HospitalChloride [Moles/Vol]94 mmol/X26-975GylijfcfvClermont County HospitalCholesterol [Mass/Vol]264 mg/dL<=200[facility] Cholesterol in HDL [Mass/Vol]57 mg/yZ95-53DjnujiqgpClermont County Hospital Comment on above:> or =60 mg/dl - LOW CARDIOVASCULAR RISK<40 mg/dl - HIGH CARDIOVASCULAR RISKCO2 [Moles/Vol]26.2 mmol/L21.0-32.0[facility] HospitalCreatinine [Mass/Vol]0.96 mg/dL0.70-1.30[facility] GFR/1.73 sq M.predicted MDRD (S/P/Bld) [Vol rate/Area]mL/min/{1.73_m2}>=60 [facility] HospitalGlucose [Mass/Vol]85 mg/eF91-375JhfyhxxwqClermont County HospitalPotassium [Moles/Vol]4.6 mmol/L3.5-5.1FSt. Vincent HospitalProtein [Mass/Vol]8.0 g/dL6.4-8.2FSt. Vincent Hospital Sodium [Moles/Vol]133 mmol/E865-534YcentlpjaClermont County HospitalT4 [Mass/Vol]6.00 ug/dL4.50-12.10[facility] HospitalTriglyceride [Mass/Vol]102 mg/dL<=150Cl[facility] County HospitalTSH Qn0.951 m[IU]/L 0.358-3.740Cl[facility] HospitalUrea nitrogen [Mass/Vol]10.0 mg/dL 7.0-18.0[facility] HospitalUrea nitrogen/Creatinine [Mass ratio] 10.4 mg/mgClermont County HospitalLaboratory - Hematology and Cell countson 72-16-1794PwH5w (Bld) [Mass fraction]5.2 %4.5-6.2FSt. Vincent HospitalComment on above:ADA RECOMMENDED LIMIT 4.0 - 6.0ADA THERAPEUTIC TARGET < 7.0ACTION SUGGESTED> 7.0Immature granulocytes/100 WBC (Bld)0.2 %0.0-0.5 [facility] HospitalLeukocytes [#/volume] corrected for nucleated erythrocytes in Blood by Automated counon 75-25-3108OKF corrected for nucl RBC Auto (Bld) [#/Vol]5.5 10 3/uL4.0-11.0[facility] Lymphocytes Auto (Bld) [#/Vol]on 07-98-8662Lfyhuceatqy (Bld) [#/Vol]2.1 10 3/uL 1.2-3.8[facility] HospitalLymphocytes/100 WBC Auto (Bld)on 67-14-1041Opxdkcqzque/100 WBC (Bld)37.1 %20.5-60.0[facility] HospitalH Auto (RBC) [Entitic mass]on 12-79-2563HEJ (RBC) [Entitic mass]32.4 pg 25.9-34.0[facility] HospitalMCHC Auto (RBC) [Mass/Vol]on 18-51-4707JEPT (RBC) [Mass/Vol]33.3 g/dL29.9-35.2FSt. Vincent HospitalMCV Auto (RBC) [Entitic vol]on 87-50-4998FGN (RBC) [Entitic vol]97.3 fL 80.0-94.0[facility] HospitalMonocytes Auto (Bld) [#/Vol]on 31-87-9646Nuobdodqa (Bld) [#/Vol]0.8 10 3/uL0.3-0.8[facility] HospitalMonocytes/100 WBC Auto (Bld)on 92-74-3800Kdnfnzssm/100 WBC (Bld)14.6 % 1.7-12.0[facility] HospitalNeutrophils Auto (Bld) [#/Vol]on 94-95-6099Hcpfcfcexbx (Bld) [#/Vol]2.4 10 3/uL1.4-6.5FSt. Vincent HospitalNeutrophils/100 WBC Auto (Bld)on 19-17-6051Nmxyqfjrnmt/100 WBC (Bld)43.8 % 43.0-75.0[facility] HospitalNo Panel Informationon 06-29-2023 Eosinophils # (Auto)0.2 10 3/uL0.0-0.7FSt. Vincent HospitalImmature Granulocyte # (Auto)0.01 10 3/uL0.00-0.03[facility] Prostate Specific Antigen Screen0.98 ng/mL<=4.00[facility] HospitalPlatelet mean volume Auto (Bld) [Entitic vol]on 11-56-2198Hcmcpjsp mean volume (Bld) [Entitic vol]9.6 fL9.5-13.5FSt. Vincent Hospital Platelets Auto (Bld) [#/Vol]on 94-05-5942Huswjfpth (Bld) [#/Vol]330 10 3/uL 150-450Cl[facility] County HospitalRBC Auto (Bld) [#/Vol]on 85-15-7077CHN (Bld) [#/Vol]4.11 10 6/uL4.70-6.10[facility] Centererum or plasma albumin/globulin mass ratioon 82-87-8252Dbbqbkj/Globulin [Mass ratio]1.1 {ratio}[facility] Centererum or plasma anion gap determination on 99-30-5087Bwabc gap [Moles/Vol]17.4 mmol/LFSt. Vincent Hospital Serum or plasma total cholesterol/high density lipoprotein (HDL) cholesterol mass mina 94-40-5880Pxyyrdalcei.total/Cholesterol in HDL [Mass ratio]4.6 {ratio}[facility] HospitalComment on above:3.3 - 4.4 LOW RISK4.4 - 7.1 AVERAGE RISK7.1 - 11.0 MODERATE RISK>11.0 HIGH RISKCBC AUTO DIFFon 84-22-1542WDJG #0.0 103/ulNormal0.0-0.1The [facility] Butler HospitalComment on above: Performed By: #### CBC #### [facility] [address] [address] [address] Sherman Mosessophils/100 WBC (Bld)0.6 %Normal0.2-2.0The [facility] Comment on above:Performed By: #### CBC #### [facility] [address] [place] [address] Dr. Sherman Cevallos #0.2 103/ulNormal0.0-0.7The [facility] HospitalComment on above: Performed By: #### CBC #### [facility] [address] [place] [address] Dr. Sherman Romeroosinophils/100 WBC (Bld)3.4 %Normal0.9-7.0The [facility] Comment on above:Performed By: #### CBC #### [facility] [address] [place] [address] Dr. Sherman Romerorythrocyte distribution width (RBC) [Ratio]12.9 %Ymjpim19.0-15.0 The [facility] HospitalComment on above:Performed By: #### CBC #### [facility] [address] [place] [address] Dr. Sherman SantosHematocrit (Bld) [Volume fraction]42.3 %Kshknp91.0-54.0The [facility] HospitalComment on above:Performed By: #### CBC #### [facility] [address] [place] [address] Dr. Sherman SantosHemoglobin (Bld) [Mass/Vol]14.1 g/lVHgnnup39.0-18.0The [facility] HospitalComment on above:Performed By: #### CBC #### [facility] [address] [place] [address] Dr. Sherman Toledo #0.02 10e3/ulNormal0.00-0.03The [facility] HospitalComment on above:Performed By: #### CBC #### [facility] [address] [place] [address] Dr. Sherman Toledo %0.4 %Normal0.0-0.5The [facility] HospitalComment on above: Performed By: #### CBC #### [facility] [address] [place] [address] Dr. Sherman Yeager #1.8 103/ulNormal1.2-3.8The [facility] HospitalComment on above:Performed By: #### CBC #### [facility] [address] [place] [address] Dr. Sherman Hernandezhocytes/100 WBC (Bld)35.9 %Sbiuvk00.5-60.0The [facility] HospitalComment on above:Performed By: #### CBC #### [facility] [address] [address] [address] Sherman Meraz DIFF REQNONormalThe [facility] HospitalComment on above: Performed By: #### CBC #### [facility] [address] [place] [address] Dr. Sherman House (RBC) [Entitic mass]32.2 ldMnfmeg40.9-34.0The [facility] HospitalComment on above:Performed By: #### CBC #### [facility] [address] [place] [address] Dr. Sherman Mckenzie (RBC) [Mass/Vol]33.3 g/uUQlzfey68.9-35.2The [facility] HospitalComment on above:Performed By: #### CBC #### [facility] [address] [place] [address] Dr. Sherman Mckenzie (RBC) [Entitic vol]96.6 fLCritically high80.0-94.0The [facility] HospitalComment on above:Performed By: #### CBC #### [facility] [address] [place] [address] Dr. Sherman Freeman #1.0 103/ulCritically high0.3-0.8The [facility] Comment on above:Performed By: #### CBC #### [facility] [address] [place] [address] Dr. Sherman Pradhanocytes/100 WBC (Bld)19.1 %Critically high1.7-12.0The [facility] Butler HospitalComment on above:Performed By: #### CBC #### [facility] [address] [place], [place] [id number] Dr. Sherman Buck #2.0 103/ulNormal1.4-6.5The [facility] HospitalComment on above:Performed By: #### CBC #### [facility] [address] [place] [address] Dr. Sherman Crawleyutrophils/100 WBC (Bld)40.6 %Critically low43.0-75.0The [facility] HospitalComment on above:Performed By: #### CBC #### [facility] [address] [place] [address] Dr. Sherman SantosPlatelet mean volume (Bld) [Entitic vol]9.5 fLNormal9.5-13.5The [facility] HospitalComment on above:Performed By: #### CBC #### [facility] [address] [place] [address] Dr. Sherman SantosPLT348 103/omFpuake927-096Xlz [facility] HospitalComment on above: Performed By: #### CBC #### [facility] [address] [place] [address] Dr. Sherman SantosRBC4.38 106/ulCritically low4.70-6.10The [facility] HospitalCompontiac [facility] hospital on above:Performed By: #### CBC #### [facility] [address] [place] [address] Dr. Sherman SantosWBC5.0 103/ulNormal4.0-11.0The [facility] HospitalCompontiac general hospital on above: Performed By: #### CBC #### [facility] [address] [place] [address] Dr. Sherman SantosLIPID PROFILEon [id number]-HDL RATIO NORMSEE [facility]Comp[facility] hospital on above:Result Comment: 3.3 - 4.4 LOW RISK 4.4 - 7.1 AVERAGE RISK 7.1 - 11.0 MODERATE RISK >11.0 HIGH RISKPerformed By: #### PSASC #### [facility] [address] [place] [address] Dr. Sherman SantosCholesterol [Mass/Vol]271 mg/dLCritically high<=200The [facility] on above:Performed By: #### PSASC #### [facility] [address] [address] [address] Sherman SantosCholesterol in HDL [Mass/Vol]47 mg/fZRusccd13-94Noz [facility] on above:Performed By: #### PSASC #### [facility] [address] [address] [address] Sherman SantosCholesterol in LDL [Mass/Vol]185.6 mg/dLMercy HospitalCompontiac general hospital on above:Performed By: #### PSASC #### [facility] [address] [place] [address] Dr. Sherman Gallagher.total/Cholesterol in HDL [Mass ratio]5.8 {ratio} NormalThe [facility] on above:Performed By: #### PSASC #### [facility] [address] [place] [address] Dr. Sherman Rees NORMAL> or = 60 mg/dl - LOW CARDIOVASCULAR RISK <40 mg/dl - HIGH CARDIOVASCULAR RISKMercy HospitalCompontiac general hospital on above:Performed By: #### PSASC #### [facility] [address] [place] [address] Dr. Sherman Smith CALC NORMALSEE BELOWMercy HospitalCompontiac general hospital on above:Result Comment: <100 mg/dl OPTIMAL 100 - 129 mg/dl NEAR OR ABOVE OPTIMAL 130 - 159 mg/dl BORDERLINE HIGH 160 - 189 mg/dl HIGH >190 mg/dl VERY HIGH Performed By: #### PSASC #### [facility] [address] [place] [address] Dr. Sherman SantosTriglyceride [Mass/Vol]192 mg/dLCritically high<=150[facility] on above:Performed By: #### PSASC #### [facility] [address] [place] [address] Dr. Sherman PaniaguaLDL CALC38.4 mg/dLMercy HospitalCompontiac general hospital on above: Performed By: #### PSASC #### [facility] [address] [address] [address] Sherman AgarwalF 14(COMP METB)on [id number] [Mass/Vol]4.2 g/dLNormal 3.4-5.0The [facility] HospitalComment on above:Performed By: #### OSMO #### [facility] [address] [place] [address] Dr. Sherman SantosAlbumin/Globulin [Mass ratio]1.1 {ratio}NormalThe [facility] HospitalComment on above:Performed By: #### OSMO #### [facility] [address] [place] [address] Dr. Sherman Lyons [Catalytic activity/Vol]92 U/IUgrasb16-979Awa [facility] HospitalComment on above:Performed By: #### OSMO #### [facility] [address] [place] [address] Dr. Sherman Dee [Catalytic activity/Vol]40 U/IZqeldx14-90Nsb [facility] HospitalComment on above:Performed By: #### OSMO #### [facility] [address] [place] [address] Dr. Sherman Cano gap [Moles/Vol]10.5 mmol/LNormalThe [facility] Comment on above:Performed By: #### OSMO #### [facility] [address] [place] [address] Dr. Sherman SantosAST [Catalytic activity/Vol]30 U/BWuzflr31-32Ztc [facility] HospitalComment on above:Performed By: #### OSMO #### [facility] [address] [place] [address] Dr. Sherman SantosBilirubin [Mass/Vol]0.7 mg/dLNormal0.2-1.0The [facility] Comment on above:Performed By: #### OSMO #### [facility] [address] [place] [address] Dr. Sherman SantosCalcium [Mass/Vol]9.6 mg/dLNormal8.5-10.1The [facility] Comment on above:Performed By: #### OSMO #### [facility] [address] [address] [address] Sherman SantosChloride [Moles/Vol]98 mmol/NYdhkki98-584Axq [facility] Comment on above:Performed By: #### OSMO #### [facility] [address] [address] [address] Sherman SantosCO2 [Moles/Vol]29.0 mmol/LZcaizf19.0-32.0The [facility] Comment on above:Performed By: #### OSMO #### [facility] [address] [address] [address] Sherman SantosCreatinine [Mass/Vol]0.88 mg/dLNormal0.70-1.30The [facility] HospitalComment on above:Performed By: #### OSMO #### [facility] [address] [address] [address] Whitaker ChangEGFR-AF GABONESE>60Normal>=60The [facility] HospitalComment on above:Performed By: #### OSMO #### [facility] [address] [address] [address] Sherman RomeroGFR-NON AF GABONESE>60Normal>=60The [facility] HospitalComment on above:Performed By: #### OSMO #### [facility] [address] [address] [address] Sherman SantosGlobulin (S) [Mass/Vol]3.7 g/dLNormalThe [facility] HospitalComment on above:Performed By: #### OSMO #### [facility] [address] [address] [address] hSerman SantosGlucose [Mass/Vol]94 mg/uRFnszgu59-547Ngo [facility] Comment on above:Performed By: #### OSMO #### [facility] [address] [address] [address] Sherman SantosPotassium [Moles/Vol]4.5 mmol/LNormal3.5-5.1The [facility] Comment on above:Performed By: #### OSMO #### [facility] [address] [address] [address] Sherman SantosProtein [Mass/Vol]7.9 g/dLNormal6.4-8.2The [facility] Comment on above:Performed By: #### OSMO #### [facility] [address] [place] [address] Dr. Sherman SantosSodium [Moles/Vol]133 mmol/LCritically vtb250-945Fbo [facility] HospitalComment on above:Performed By: #### OSMO #### [facility] [address] [place] [address] Dr. Sherman SantosUrea nitrogen [Mass/Vol]8.0 mg/dLNormal7.0-18.0The [facility] HospitalComment on above:Performed By: #### OSMO #### [facility] [address] [place] [address] Dr. Sherman Molina nitrogen/Creatinine [Mass ratio]9.1 mg/mgNormalThe [facility] HospitalComment on above:Performed By: #### OSMO #### [facility] [address] [place] [address] Dr. Sherman SantosT4on [id number] [Mass/Vol]6.50 ug/dLNormal4.50-12.10The [facility] HospitalComment on above:Performed By: #### OSMO #### [facility] [address] [place] [address] Dr. Sherman AcuñaHomadina [id number] uIU/mLNormal0.358-3.740The [facility] HospitalComment on above:Performed By: #### PSASC #### [facility] [address] [place] [address] Dr. Sherman SantosAMMONIAon [id number] (P) [Moles/Vol]24 umol/XTymfro46-21 The [facility] HospitalComment on above:Performed By: #### PSASC #### [facility] [address] [place] [address] Dr. Sherman MendezC AUTO DIFFon [id number] #0.1 103/ulNormal0.0-0.1The [facility] HospitalComment on above:Performed By: #### CBC #### [facility] [address] [address] [address] Sherman SantosBasophils/100 WBC (Bld)0.7 %Normal0.2-2.0The [facility] Comment on above:Performed By: #### CBC #### [facility] [address] [address] [address] Sherman Cevallos #0.2 103/ulNormal0.0-0.7The [facility] HospitalComment on above: Performed By: #### CBC #### [facility] [address] [place] [address] Dr. Sherman Romeroosinophils/100 WBC (Bld)2.7 %Normal0.9-7.0The [facility] Comment on above:Performed By: #### CBC #### [facility] [address] [place] [address] Dr. Sherman Romerorythrocyte distribution width (RBC) [Ratio]12.1 %Vytzqa07.0-15.0 The [facility] HospitalComment on above:Performed By: #### CBC #### [facility] [address] [place] [address] Dr. Sherman SantosHematocrit (Bld) [Volume fraction]36.0 %Critically low42.0-54.0 The [facility] HospitalComment on above:Performed By: #### CBC #### [facility] [address] [place] [address] Dr. Sherman SantosHemoglobin (Bld) [Mass/Vol]12.6 g/dLCritically low14.0-18.0The [facility] HospitalComment on above:Performed By: #### CBC #### [facility] [address] [place] [address] Dr. Sherman Toledo #0.02 10e3/ulNormal0.00-0.03The [facility] HospitalComment on above:Performed By: #### CBC #### [facility] [address] [address] [address] Sherman Toledo %0.3 %Normal0.0-0.5[facility] on above: Performed By: #### CBC #### [facility] [address] [place] [address] Dr. Sherman Yeager #2.7 103/ulNormal1.2-3.8The [facility] HospitalCompontiac general hospital on above:Performed By: #### CBC #### [facility] [address] [place] [address] Dr. Sherman Hernandezhocytes/100 WBC (Bld)39.4 %Hhvjwj49.5-60.0[facility] on above:Performed By: #### CBC #### [facility] [address] [place] [address] Dr. Sherman MoUAL DIFF REQNONormalThe [facility] HospitalComment on above: Performed By: #### CBC #### [facility] [address] [place] [address] Dr. Sherman Mckenzie (RBC) [Entitic mass]32.1 thWhbghi51.9-34.0[facility] on above:Performed By: #### CBC #### [facility] [address] [place] [address] Dr. Sherman Mckenzie (RBC) [Mass/Vol]35.0 g/xLTtaghl09.9-35.2[facility] on above:Performed By: #### CBC #### [facility] [address] [place] [address] Dr. Sherman Mckenzie (RBC) [Entitic vol]91.8 aCIbwpna83.0-94.0[facility] on above:Performed By: #### CBC #### [facility] [address] [place] [address] Dr. Sherman Freeman #0.8 103/ulNormal0.3-0.8The [facility] on above:Performed By: #### CBC #### [facility] [address] [address] [address] Sherman Pradhanocytes/100 WBC (Bld)11.8 %Normal1.7-12.0The [facility] Comment on above:Performed By: #### CBC #### [facility] [address] [address] [address] Sherman CrawleyUT #3.1 103/ulNormal1.4-6.5The [facility] HospitalComment on above:Performed By: #### CBC #### [facility] [address] [address] [address] Sherman Crawleyutrophils/100 WBC (Bld)45.1 %Nprvlv93.0-75.0The [facility] HospitalComment on above:Performed By: #### CBC #### [facility] [address] [place] [address] Dr. Sherman SantosPlatelet mean volume (Bld) [Entitic vol]8.5 fLCritically low 9.5-13.5The [facility] HospitalComment on above:Performed By: #### CBC #### [facility] [address] [address] [address] Sherman SnatosPLT292 103/qmBadsvu109-532Uwj [facility] HospitalComment on above: Performed By: #### CBC #### [facility] [address] [place] [address] Dr. Sherman SantosRBC3.92 106/ulCritically low4.70-6.10The [facility] HospitalComment on above:Performed By: #### CBC #### [facility] [address] [place] [address] Dr. Sherman SantosWBC7.0 103/ulNormal4.0-11.0The [facility] HospitalComment on above: Performed By: #### CBC #### [facility] [address] [place] [address] Dr. Sherman SantosCT STROKE HEAD WOon [id number] STROKE HEAD WOEXAMINATION: CT STROKE HEAD WO [...] Electronically authenticated by: HAWA SULLIVAN Date: 2022-03-02 18:10[facility] URINE PROFILEon [id number] Ql (U)NegativeNormal NEGATIVETrihealth Bethesda Butler HospitalComment on above:Performed By: #### ERUR #### [facility] [address] [place] [address] Dr. Sherman SantosClarity (U)CLEARNormalCLEARTrihealth Bethesda Butler HospitalComment on above: Performed By: #### ERUR #### [facility] [address] [place] [address] Dr. Sherman Liao (U)LT. YELLOWNormalYELLOWTrihealth Bethesda Butler HospitalComment on above:Performed By: #### ERUR #### [facility] [address] [place] [address] Dr. Sherman Reyes micrscopic examination will be performed if indicated. NormalTrihealth Bethesda Butler HospitalComment on above:Performed By: #### ERUR #### [facility] [address] [place] [address] Dr. Sherman SantosGlucose Ql (U)NegativeNormalNEGATIVETrihealth Bethesda Butler HospitalComment on above:Performed By: #### ERUR #### [facility] [address] [place] [address] Dr. Sherman SantosHemoglobin Ql (U)NegativeNormalNEGATIVESumma Health on above:Performed By: #### ERUR #### [facility] [address] [place] [address] Dr. Sherman SantosKetones Ql (U)NegativeNormalNEGATIVETrihealth Bethesda Butler HospitalComment on above:Performed By: #### ERUR #### [facility] [address] [place] [address] Dr. Sherman SantosLEUKOCYTESNegativeNormalNEGATIVETrihealth Bethesda Butler HospitalComment on above:Performed By: #### ERUR #### [facility] [address] [place] [address] Dr. Sherman SantosNitrite Ql (U)NegativeNormalNEGATIVEThe [facility] HospitalComment on above:Performed By: #### ERUR #### [facility] [address] [place] [address] Dr. Sherman SantospH (U)6.0 [pH]Normal5-9The [facility] HospitalComment on above: Performed By: #### ERUR #### [facility] [address] [place] [address] Dr. Sherman SantosSPEC GRAVITY<=1.563Itjzxyth0.005-<=1.025[facility] Comment on above:Performed By: #### ERUR #### [facility] [address] [place] [address] Dr. Sherman Simons PROTEINNegativeNormalNEGATIVE/ TRACEThe [facility] Comment on above:Performed By: #### ERUR #### [facility] [address] [place] [address] Dr. Sherman Haque MICRO INDNOT INDICATEDNoalThTriHealth McCullough-Hyde Memorial HospitalComment on above:Performed By: #### ERUR #### [facility] [address] [place] [address] Dr. Sherman Rosalesbilinogen Qn (U)0.2 {Norris'U}/dLNormal0.2 - 1.0[facility] HospitalComment on above:Performed By: #### ERUR #### [facility] [address] [place] [address] Dr. Sherman SantosMRI BRAIN WO W CONon [id number] BRAIN WO W CONEXAMINATION: MRI BRAIN WO [...] Electronically authenticated by: CARLOS HOLLOWAY Date: 2022-03-02 09:11[facility] HospitalPR[facility](COMP METB)on [id number] [Mass/Vol]3.9 g/dLNormal 3.4-5.0The [facility] HospitalComment on above:Performed By: #### OSMO #### [facility] [address] [place] [address] Dr. Sherman SantosAlbumin/Globulin [Mass ratio]1.1 {ratio}NormalThe [facility] HospitalComment on above:Performed By: #### OSMO #### [facility] [address] [place] [address] Dr. Sherman Lyons [Catalytic activity/Vol]79 U/HGhhzid08-144Ipp [facility] HospitalComment on above:Performed By: #### OSMO #### [facility] [address] [place] [address] Dr. Sherman Dee [Catalytic activity/Vol]35 U/JTcqwnv92-79Hbp [facility] HospitalComment on above:Performed By: #### OSMO #### [facility] [address] [place] [address] Dr. Sherman Cano gap [Moles/Vol]12.6 mmol/LNormalThe [facility] Comment on above:Performed By: #### OSMO #### [facility] [address] [place] [address] Dr. Yilan ChangAST [Catalytic activity/Vol]25 U/EWzrgua68-29Xmq [facility] HospitalComment on above:Performed By: #### OSMO #### [facility] [address] [place] [address] Dr. Sherman SantosBilirubin [Mass/Vol]0.3 mg/dLNormal0.2-1.0The [facility] Comment on above:Performed By: #### OSMO #### [facility] [address] [place] [address] Dr. Sherman SantosCalcium [Mass/Vol]8.9 mg/dLNormal8.5-10.1The [facility] Comment on above:Performed By: #### OSMO #### [facility] [address] [place] [address] Dr. Sherman SantosChloride [Moles/Vol]97 mmol/LCritically lxc63-339Kyc [facility] HospitalComment on above:Performed By: #### OSMO #### [facility] [address] [place] [address] Dr. Sherman SantosCO2 [Moles/Vol]23.2 mmol/TFixufp87.0-32.0The [facility] Comment on above:Performed By: #### OSMO #### [facility] [address] [place] [address] Dr. Sherman SantosCreatinine [Mass/Vol]0.82 mg/dLNormal0.70-1.30The [facility] HospitalComment on above:Performed By: #### OSMO #### [facility] [address] [place] [address] Dr. Sherman RomeroGFR-AF GABONESE>60Normal>=60The [facility] HospitalComment on above:Performed By: #### OSMO #### [facility] [address] [place] [address] Dr. Sherman RomeroGFR-NON AF GABONESE>60Normal>=60The [facility] HospitalComment on above:Performed By: #### OSMO #### [facility] [address] [place] [address] Dr. Sherman SantosGlobulin (S) [Mass/Vol]3.6 g/dLNormParkwood HospitalComment on above:Performed By: #### OSMO #### [facility] [address] [place] [address] Dr. Sherman SantosGlucose [Mass/Vol]80 mg/sTTapynf24-301Rpa [facility] Comment on above:Performed By: #### OSMO #### [facility] [address] [address] [address] Sherman SantosPotassium [Moles/Vol]3.8 mmol/LNormal3.5-5.1The [facility] Comment on above:Performed By: #### OSMO #### [facility] [address] [place] [address] Dr. Sherman SantosProtein [Mass/Vol]7.5 g/dLNormal6.4-8.2The [facility] Comment on above:Performed By: #### OSMO #### [facility] [address] [place] [address] Dr. Sherman SantosSodium [Moles/Vol]129 mmol/LCritically hsi359-829Pko [facility] HospitalComment on above:Performed By: #### OSMO #### [facility] [address] [place] [address] Dr. Sherman SantosUrea nitrogen [Mass/Vol]9.0 mg/dLNormal7.0-18.0The [facility] HospitalComment on above:Performed By: #### OSMO #### [facility] [address] [place] [address] Dr. Sherman SantosUrea nitrogen/Creatinine [Mass ratio]11.0 mg/mgNormParkwood HospitalComment on above:Performed By: #### OSMO #### [facility] [address] [place] [address] Dr. Sherman SantosPROF CHEM 8 (BAS METB)on 47-97-0952Aaafc gap [Moles/Vol]8.4 mmol/LNormalThe [facility] HospitalComment on above:Performed By: #### BMP #### [facility] [address] [address] [address] Sherman SantosCalcium [Mass/Vol]9.4 mg/dLNormal8.5-10.1The [facility] Comment on above:Performed By: #### BMP #### [facility] [address] [address] [address] Sherman SantosChloride [Moles/Vol]99 mmol/MRkdtnu36-716Yfz [facility] Comment on above:Performed By: #### BMP #### [facility] [address] [address] [address] Sherman SantosCO2 [Moles/Vol]32.0 mmol/WYfwvic69.0-32.0The [facility] Comment on above:Performed By: #### BMP #### [facility] [address] [place] [address] Dr. Sherman SantosCreatinine [Mass/Vol]0.97 mg/dLNormal0.70-1.30The [facility] HospitalComment on above:Performed By: #### BMP #### [facility] [address] [address] [address] Whitaker ChangEGFR-AF GABONESE>60Normal>=60The [facility] HospitalComment on above:Performed By: #### BMP #### [facility] [address] [place] [address] Dr. Sherman RomeroGFR-NON AF GABONESE>60Normal>=60The [facility] HospitalComment on above:Performed By: #### BMP #### [facility] [address] [address] [address] Sherman SantosGlucose [Mass/Vol]138 mg/dLCritically krqv76-040Jau [facility] HospitalComment on above:Performed By: #### BMP #### [facility] [address] [address] [address] Sherman SantosPotassium [Moles/Vol]4.4 mmol/LNormal3.5-5.1The [facility] Comment on above:Performed By: #### BMP #### [facility] [address] [place] [address] Dr. Sherman Adamsum [Moles/Vol]135 mmol/LCritically sve222-249Fpu [facility] HospitalComment on above:Performed By: #### BMP #### [facility] [address] [place] [address] Dr. Sherman Molina nitrogen [Mass/Vol]13.0 mg/dLNormal7.0-18.0[facility] HospitalComment on above:Performed By: #### BMP #### [facility] [address] [place] [address] Dr. Sherman Molina nitrogen/Creatinine [Mass ratio]13.4 mg/mgNoMiami Valley HospitalComment on above:Performed By: #### BMP #### [facility] [address] [place] [address] Dr. Sherman SantosPROTIMEon 61-03-7848OKE Coag (PPP) [Relative time]0.98 {INR} NormalThe [facility] HospitalComment on above:Performed By: #### PSASC #### [facility] [address] [place] [address] Dr. Sherman Osei GUIDELINESSEE BELOWMercy HospitalComment on above:Result Comment: DESIRED INR: 2.0 - 3.0 CONDITIONS NOT LISTED BELOW 2.5 - 3.5 FOR PROSTHETIC HEART VALVE REPLACEMENT 2.5 - 3.5 RECURRENT THROMBOSIS Performed By: #### PSASC #### [facility] [address] [place] [address] Dr. Sherman Alanis Coag (PPP) [Time]10.6 sNormal9.0-11.6The [facility] Comment on above:Performed By: #### PSASC #### [facility] [address] [place] [address] Dr. Sherman Hernandez 61-30-8386gOEP Coag (Bld) [Time]30.2 eLacskg15.3-36.2[facility] HospitalComment on above:Performed By: #### PSASC #### [facility] [address] [place] [address] Dr. Sherman Womack, HIGH SENSITIVITYon 42-77-3146ZLTLIR34.4 pg/mLNormal 4.0-76.1The [facility] Hospitalment on above:Result Comment: CUT-OFF POINTS HAVE BEEN ESTABLISHED BASED ON THE FOURTH UNIVERSAL DEFINITIONS OF MYOCARDIAL INFARCTION. THE UPPER REFERENCE LIMIT (URL) OF TROPONIN, DEFINED THE 99TH PERCENTILE OF cTnI DISTRIBUTION IN A REFERENCE POPULATION, HAS BEEN CONFIRMED THE DECISION THRESHOLD FOR ND DIAGNOSIS.Performed By: #### OSMO #### [facility] [address] [place] [address] Dr. Sherman Benavides 39-32-0665UIG5.556 uIU/mLNormal0.358-3.740The [facility] HospitalComment on above:Performed By: #### OSMO #### [facility] [address] [place] [address] Dr. Sherman SantosXR CHEST 1 Von 42-39-5036NR CHEST 1 VEXAMINATION: XR CHEST 1 V, , 03/02/2022 5:36 PM EST INDICATION: Altered mental status HISTORY: Ordering Provider Reason for Exam: Technologist Note: Additional: COMPARISON: None. TECHNIQUE: Chest x-ray: One view. FINDINGS: No pneumothorax, pleural effusion or focal airspace consolidation. Heart is normal in size. Bony thorax is unremarkable. IMPRESSION: No acute cardiopulmonary process. Electronically authenticated by: SOPHIA AMBRIZ Date: 2022-03-02 18:40NoMiami Valley HospitalXR FOREIGN BODY EYEon 06-39-4643OZ FOREIGN BODY EYEEXAM: XR FOREIGN BODY EYE [...] Electronically authenticated by: BAL OVERTON Date: 2022-03-02 07:55NoMiami Valley HospitalOSMOLALITYon 24-00-2480Sxognyicen [Osmolality]284 mosm/kgNormal 280-301The [facility] HospitalComment on above:Performed By: #### OSMO #### [facility] [address] [place] [address] Dr. Sherman SantosOSMOLALITY URINEon 00-88-7479Zfxgmcruyv, Xdaba923 mOsmol/kgNormal [facility] HospitalComment on above:Result Comment: 24 hr : 300 - 900 Random: 50 - 1400 After 12hr fluid restriction: >850Performed By: #### OSMO #### [facility] [address] [place] [address] Dr. Sherman SantosCBC AUTO DIFFon 47-24-5349BPGY #0.0 103/ulNormal0.0-0.1The [facility] HospitalComment on above:Performed By: #### TSH, URIC, CMP #### [facility] [address] [place] [address] Dr. Sherman SantosBasophils/100 WBC (Bld)0.4 %Normal0.2-2.0The [facility] Comment on above:Performed By: #### TSH, URIC, CMP #### [facility] [address] [place] [address] Dr. Sherman Cevallos #0.2 103/ulNormal0.0-0.7The [facility] HospitalComment on above: Performed By: #### TSH, URIC, CMP #### [facility] [address] [place] [address] Dr. Sherman Romeroosinophils/100 WBC (Bld)4.0 %Normal0.9-7.0The [facility] Comment on above:Performed By: #### TSH, URIC, CMP #### [facility] [address] [place] [address] Dr. Sherman Romerorythrocyte distribution width (RBC) [Ratio]12.6 %Uditya79.0-15.0 [facility] HospitalComment on above:Performed By: #### TSH, URIC, CMP #### [facility] [address] [place] [address] Dr. Sherman SantosHematocrit (Bld) [Volume fraction]43.7 %Tyfonz43.0-54.0The [facility] HospitalComment on above:Performed By: #### TSH, URIC, CMP #### [facility] [address] [place] [address] Dr. Sherman SantosHemoglobin (Bld) [Mass/Vol]14.7 g/eDSpzzld00.0-18.0The [facility] HospitalComment on above:Performed By: #### TSH, URIC, CMP #### [facility] [address] [place] [address] Dr. Sherman Toledo #0.01 10e3/ulNormal0.00-0.03The [facility] HospitalComment on above:Performed By: #### TSH, URIC, CMP #### [facility] [address] [place] [address] Dr. Sherman Toledo %0.2 %Normal0.0-0.5The [facility] HospitalComment on above: Performed By: #### TSH, URIC, CMP #### [facility] [address] [place] [address] Dr. Sherman Yeager #1.5 103/ulNormal1.2-3.8The [facility] HospitalComment on above:Performed By: #### TSH, URIC, CMP #### [facility] [address] [place] [address] Dr. Sherman Hernandezhocytes/100 WBC (Bld)30.5 %Udevld42.5-60.0The [facility] on above:Performed By: #### TSH, URIC, CMP #### [facility] [address] [place] [address] Dr. Sherman MoUAL DIFF REQNONormalThe [facility] HospitalComment on above: Performed By: #### TSH, URIC, CMP #### [facility] [address] [place] [address] Dr. Sherman House (RBC) [Entitic mass]32.5 bpLxjshc63.9-34.0The [facility] HospitalComment on above:Performed By: #### TSH, URIC, CMP #### [facility] [address] [place] [address] Dr. Sherman Mckenzie (RBC) [Mass/Vol]33.6 g/aPDuowjd73.9-35.2The [facility] HospitalComment on above:Performed By: #### TSH, URIC, CMP #### [facility] [address] [address] [address] Sherman Mckenzie (RBC) [Entitic vol]96.7 fLCritically high80.0-94.0The [facility] HospitalComment on above:Performed By: #### TSH, URIC, CMP #### [facility] [address] [address] [address] Sherman Freeman #0.9 103/ulCritically high0.3-0.8The [facility] Comment on above:Performed By: #### TSH, URIC, CMP #### [facility] [address] [place] [address] Dr. Sherman Pradhanocytes/100 WBC (Bld)18.0 %Critically high1.7-12.0The [facility] HospitalComment on above:Performed By: #### TSH, URIC, CMP #### [facility] [address] [address] [address] Sherman Buck #2.4 103/ulNormal1.4-6.5The [facility] HospitalComment on above:Performed By: #### TSH, URIC, CMP #### [facility] [address] [address] [address] Sherman Crawleyutrophils/100 WBC (Bld)46.9 %Tdvdpw35.0-75.0The [facility] HospitalComment on above:Performed By: #### TSH, URIC, CMP #### [facility] [address] [address] [address] Sherman Izquierdolet mean volume (Bld) [Entitic vol]9.0 fLCritically low 9.5-13.5The [facility] HospitalComment on above:Performed By: #### TSH, URIC, CMP #### [facility] [address] [place] [address] Dr. Sherman LlanosT289 103/vpNdinrb102-051SeaPremier Health Atrium Medical Centerment on above: Performed By: #### TSH, URIC, CMP #### [facility] [address] [address] [address] Sherman SantosRBC4.52 106/ulCritically low4.70-6.10The [facility] HospitalCompontiac general hospital on above:Performed By: #### TSH, URIC, CMP #### [facility] [address] [address] [address] Sherman aSntosWBC5.0 103/ulNormal4.0-11.0The [facility] HospitalCompontiac general hospital on above: Performed By: #### TSH, URIC, CMP #### [facility] [address] [place] [address] Dr. Sherman SantosCT LUNG CANCER SCREENINGon 38-61-0894KO LUNG CANCER SCREENING EXAMINATION: CT LUNG CANCER [...] Electronically authenticated by: CARLOS HOLLOWAY Date: 2022-01-12 19:43NoMiami Valley HospitalPROF 14(COMP METB)on 61-89-2540Vyqzhjg [Mass/Vol]4.1 g/dLNormal 3.4-5.0The [facility] HospitalComment on above:Performed By: #### TSH, URIC, CMP #### [facility] [address] [place] [address] Dr. Sherman SantosAlbumin/Globulin [Mass ratio]1.1 {ratio}NormalThe [facility] HospitalComment on above:Performed By: #### TSH, URIC, CMP #### [facility] [address] [place] [address] Dr. Sherman Lyons [Catalytic activity/Vol]88 U/XJuhxjd19-275Lxg [facility] HospitalComment on above:Performed By: #### TSH, URIC, CMP #### [facility] [address] [place] [address] Dr. Sherman Dee [Catalytic activity/Vol]42 U/OJjmnun14-03Dfm [facility] HospitalComment on above:Performed By: #### TSH, URIC, CMP #### [facility] [address] [place] [address] Dr. Sherman Cano gap [Moles/Vol]9.5 mmol/LNormalThe [facility] HospitalComment on above:Performed By: #### TSH, URIC, CMP #### [facility] [address] [place] [address] Dr. Sherman Vogel [Catalytic activity/Vol]29 U/KVwcshj90-32Ssn [facility] HospitalComment on above:Performed By: #### TSH, URIC, CMP #### [facility] [address] [place] [address] Dr. Sherman SantosBilirubin [Mass/Vol]0.4 mg/dLNormal0.2-1.0The [facility] Comment on above:Performed By: #### TSH, URIC, CMP #### [facility] [address] [place] [address] Dr. Sherman SantosCalcium [Mass/Vol]9.4 mg/dLNormal8.5-10.1The [facility] Comment on above:Performed By: #### TSH, URIC, CMP #### [facility] [address] [place], [place] [address] Dr. Sherman SantosChloride [Moles/Vol]101 mmol/OJivjql92-595Hsj [facility] Comment on above:Performed By: #### TSH, URIC, CMP #### [facility] [address] [place] [address] Dr. Sherman SantosCO2 [Moles/Vol]30.4 mmol/RDvacbm70.0-32.0The [facility] Comment on above:Performed By: #### TSH, URIC, CMP #### [facility] [address] [place] [address] Dr. Sherman SantosCreatinine [Mass/Vol]0.94 mg/dLNormal0.70-1.30The [facility] HospitalComment on above:Performed By: #### TSH, URIC, CMP #### [facility] [address] [place] [address] Dr. Whitaker ChangEGFR-AF GABONESE>60Normal>=60The [facility] HospitalComment on above:Performed By: #### TSH, URIC, CMP #### [facility] [address] [place] [address] Dr. Sherman RomeroGFR-NON AF GABONESE>60Normal>=60The [facility] HospitalComment on above:Performed By: #### TSH, URIC, CMP #### [facility] [address] [place] [address] Dr. Sherman SantosGlobulin (S) [Mass/Vol]3.9 g/dLNormalThe [facility] HospitalComment on above:Performed By: #### TSH, URIC, CMP #### [facility] [address] [place] [address] Dr. Sherman SantosGlucose [Mass/Vol]95 mg/bUSijlzc37-456Vhn [facility] Comment on above:Performed By: #### TSH, URIC, CMP #### [facility] [address] [place] [address] Dr. Sherman SantosPotassium [Moles/Vol]3.9 mmol/LNormal3.5-5.1The [facility] Comment on above:Performed By: #### TSH, URIC, CMP #### [facility] [address] [address] [address] Sherman SantosProtein [Mass/Vol]8.0 g/dLNormal6.4-8.2The [facility] Comment on above:Performed By: #### TSH, URIC, CMP #### [facility] [address] [place] [address] Dr. Sherman Adamsum [Moles/Vol]137 mmol/MGrsllc493-603Esy [facility] Comment on above:Performed By: #### TSH, URIC, CMP #### [facility] [address] [place] [address] Dr. Sherman SantosUrea nitrogen [Mass/Vol]12.0 mg/dLNormal7.0-18.0The [facility] HospitalComment on above:Performed By: #### TSH, URIC, CMP #### [facility] [address] [place] [address] Dr. Sherman Molina nitrogen/Creatinine [Mass ratio]12.8 mg/mgNormalThe [facility] HospitalComment on above:Performed By: #### TSH, URIC, CMP #### [facility] [address] [place] [address] Dr. Sherman Haynes RANDOM URINEon 81-73-4078Mjmzsh (U) [Moles/Vol]65 mmol/L Wxclye96-55Mne [facility] HospitalComment on above:Performed By: #### OSMO #### [facility] [address] [place] [address] Dr. Sherman AcuñaHomadina 96-34-4392FUD2.912 uIU/mLNormal0.358-3.740The [facility] HospitalComment on above:Performed By: #### TSH, URIC, CMP #### [facility] [address] [place] [address] Dr. Sherman SantosURIC ACID SERUMon 62-24-4906Zfnzk [Mass/Vol]5.1 mg/dLNormal 3.5-7.2The [facility] HospitalComment on above:Performed By: #### TSH, URIC, CMP #### [facility] [address] [place] [address] 03-14-3946Vskddrtts From: Matt Stevens To: [facility] - Reminders/Recalls; Sent: 11/19/2021 10:05:02 EDT Show up: 08/26/2028 10:04:00 EDT Subject: colonoscopy reminder Due Date/Time: 09/23/2028 10:04:00 EDT Reminder/Recall 5 year colonoscopy reminder(2026)[facility] CenterCoding Summary.on 51-01-7303Spmbkr Summary. CD:[id number] [file] IGNv (more content not included)...[facility] IntraOperative Documentson 19-35-7014GsnzxIbtgvgdaj Documents [id number]#1.00CD:127[facility] CenterMain OR Intraoperative Recordon 67-85-3610Bfqu OR Intraoperative Record IntraOp Document Type FT Summary Primary Physician: Marlys LOPEZ MD Finalized Date/Time: 09/29/21 12:13:49 Pt. Name: DAI العلي/Sex: 1945 Male Med Rec #: [id number] Physician: Marlys LOPEZ MD Financial #: [id number] Pt. Type: O Room/Bed: / Admit/Disch: 09/23/21 [...] Anesthesiologist Scrub - Primary Surgeon - Primary Production Officer Time In 09/23/21 12:28:00 09/23/21 12:36:00 09/23/21 [...] See RN Role Performed Scrub - Primary Communications Specialist - Primary Time In 09/23/21 12:28:00 09/23/21 [...] colon polypectomy Primary Procedure Yes Primary Surgeon Mralys LOPEZ MD Start 09/23/21 12:36:00 Stop 09/23/21 [...] and tissue Entry 1 Skin Integrity Intact, [place], Warm, and Skin Abnormality No Dry Outcomes Met? Yes Last Modified By: Mayi Ness RN 06/29/22 12:33:30 Post-Care Text: The patient is free from signs and symptoms of injury caused by extraneous objects Patient Positioning FT Pre-Care Text: Identifies physical alterations that require additional preca (more content not included)...[facility] CenterProess Note-Physicianon 00-96-4753Lslnodoc Note-PhysicianPatient: DAI العلي Age: 76 years Sex: Male : 1945 Associated Diagnoses: None Author: Michael Chanel Jr, DO Postoperative Information Post Operative Note: Post Anesthesia Care Unit. Anesthetic utilized: Monitored anesthesia care. Health Status Allergies: Allergic Reactions (Selected) No Known Allergies Problem list: All Problems Anemia / SNOMED CT 244988927 / Confirmed Essential hypertension / SNOMED CT 74180869 / Confirmed Familial hypercholesterolemia / SNOMED CT 8103605332 / Confirmed Hyponatremia / SNOMED CT 333546758 / Confirmed Lung nodules / SNOMED CT 1066960000 / Confirmed BPH associated with nocturia / SNOMED CT 0781691390 / Confirmed Current smoker / SNOMED CT 689191255 / Confirmed Physical Examination Vital Signs 09/23/2021 [...] nausea and vomiting. Plan Transfer/ Discharge: Condition stable.[facility] CenterComment on above:Result Comment: Electronically Signed [...] pharmacy to sent to patient's home in [place]., [facility], 180, cm, 09/03/21 13:11:00 EDT, [...] list: All Problems Anemia / SNOMED CT 057379733 / Confirmed Essential hypertension / SNOMED CT 24745162 / Confirmed Familial hypercholesterolemia / SNOMED CT 9117471169 / Confirmed Hyponatremia / SNOMED CT 219842370 / Confirmed Lung nodules / SNOMED CT 0469810365 / Confirmed BPH associated with nocturia / SNOMED CT 0898921036 / Confirmed Current smoker / SNOMED CT 818725572 / Confirmed Histories Past Medical History: Active Hyponatremia (253726215) Lung nodules (2928285984) BPH associated with nocturia (9398871595) Current smoker (868125362) Social History Social & Psychosocial Habits Tobacco 09/03/2021 Tobacco Use: 10 or more cigarettes (1/ . Physical Examination Airway: Mallampati classification: II (soft palate, fauces, uvula visible). Respiratory: Lungs are clear to auscultation. Cardiovascular: Regular rhythm. Neurologic: Alert, Oriented. Plan [place] [employer]hesi[employer] (ASA) physical status classification: Class II. Anesthetic Preoperative Plan Anesthesia: General. . Anesthetic plan, risks, benefits, and alternatives discussed with the patient and/or family. Communication: face to face with (patient 5 minutes, Patient educated on smoking cesstation).[facility] CenterComment on above:Result Comment: Electronically Signed By: Michael Chanel Jr, DO\.ely\Date and Time Signed: 09/29/21 07:59 EDTPostoperative Documentson 09-25-2021 Postoperative [id number]:127 [facility] CenterConsenton 51-25-2930Frnsgkv [id number]#1.00CD:127[facility] CenterDischarge Instructionson 13-78-9182Phyhzsugt Instructions [id number]#1.00CD:127[facility] CenterIntraOperative Documentson 85-34-0084SjupzAedpkwhbj Documents [id number]#1.00CD:127[facility] CenterIntraOperative Documents [id number]#1.00CD:127[facility] CenterConsent for Treatmenton 75-20-6237Xjpmhqg for Treatment [id number]#1.00CD:127[facility] CenterEndoscopic Procedure Report - Otheron 72-73-8286Uttiwphwgl Procedure Report - OtherPatient: DAI العلي Age: [...] current medications. Return to activities:: After 24 hours.[facility] CenterComment on above:Result Comment: Electronically Signed By: Marlys LOPEZ MD\.br\Date and Time Signed: 09/23/21 12:52 EDTOther Comment: Missing Attachment - attachment storage system not supported [id number] Can be viewed in source systemMissing Attachment - attachment storage system not supported [id number] Can be viewed in source systemEndoscopic Procedure [...] report. 2. GI clinic follow-up in 2 weeksUniversity Hospitals Portage Medical CenterComment on above:Result Comment: Electronically Signed By: JOHN BROCK, Marlys\.br\Date and Time Signed: 09/23/21 12:40 EDTOther Comment: Missing Attachment - attachment storage system not supported [id number] Can be viewed in source systemMissing Attachment - attachment storage system not supported [id number] Can be viewed in source systemMissing Attachment - attachment storage system not supported [id number] Can be viewed in source systemMissing Attachment - attachment storage system not supported [id number] Can be viewed in source systemInpatient Patient Summaryon 37-74-2677Mnhqytlkb Patient Summary [address] [address] [facility] Clinical Discharge Instructions PERSON INFORMATION Name: DAI العلي PHYSICIANS Admitting Physician: Marlys LOPEZ MD Attending Physician: Marlys LOPEZ MD PCP: SHAY ROCA DO Discharge Diagnosis: Anemia Comment: PATIENT EDUCATION INFORMATION Instructions: Esophagitis; Upper Endoscopy, Adult, Care After; Diverticulosis; Colon Polyps; Colonoscopy, Care After Surgery John (Custom) Medication Leaflets: Follow up: With: Address: When: Marlys LOPEZ [address] [place] [address]. [address] [place], [place] [id number] Business (1) Comments: Call for any problems. Office will call you if follow up is needed. MEDICATION LIST New Medications [facility], [address] [phone], [phone] omeprazole (omeprazole 40 mg Cap-DR) 1 Capsules [...] sodium chloride (sodium chloride 1 g Tab) Comment:NormalFishMedStar Harbor HospitalMain OR PACU I Recordon 78-91-5134Voey OR PACU I RecordPACU Phase I Document Type FT Summary Primary Physician: Marlys LOPEZ MD Finalized Date/Time: 09/23/21 13:39:44 Pt. Name: DAI العلي Neha/Sex: 1945 Male Med Rec #: [id number] Physician: Marlys LOPEZ MD Financial #: [id number] Pt. Type: O Room/Bed: / Admit/Disch: 09/23/21 [...] Signatures Signed By: Laura Gross RN 09/23/21 13:39NormalPremier Health Upper Valley Medical CenterMain OR Preoperative Recordon 20-17-0703Vpim OR Preoperative RecordHolding Area Document Type FT Summary Primary Physician: Marlys LOPEZ MD Finalized Date/Time: 09/23/21 11:49:54 Pt. Name: SACHA DAI OsunaO.B./Sex: 1945 Male Med Rec #: [id number] Physician: Marlys LOPEZ MD Financial #: [id number] Pt. Type: O Room/Bed: / Admit/Disch: 09/23/21 [...] Signatures Signed By: Kenny Burris RN 09/23/21 11:49NoDayton Children's HospitalMonitor Recordon 84-80-9726Jjsxngd Record [id number]#1.00CD:127NoDayton Children's HospitalOutpatient Surgery Discharge Instructionon 82-45-5069Lnfossgxon Surgery Discharge Instruction [address] [id number] Patient Discharge Instructions PERSON INFORMATION Name: DAI [...] Date Follow up: With: Address: When: Marlys LOEPZ [address] [place], [place] [address]joon. [address] [place] [id number] Business (1) Comments: Call for any problems. Office will call you if follow up is needed. Pharmacy Information: [facility] You may receive a survey from [employer] asking you to rate your care experience. Your feedback is important and will help us understand what we do well and how we can improve the quality of care we provide to you, your loved ones and our community. It?s an honor to serve you. Thank you for choosing [facility] HERE ARE THE MEDICATION CHANGES THAT OCCURRED DURING YOUR HOSPITAL STAY New Medications [facility], [address] [id number], [phone] omeprazole (omeprazole 40 mg Cap-DR) 1 Capsules [...] ? A test t (more content not included)...[facility] Patient Education - Texton 29-20-3869Ofhgkgj Education - TextColonoscopy Care After Surgery Please [...] these instructions at home: Medicines ? Take oyqg-ukd-cxvkcbt and prescription medicines only as told by [...] and drinking (Inserted Image. (more content not included)...[facility] Consent for Procedure/Surgeryon [id number] for Procedure/Surgery [id number]:127[facility] CenterPatient Correspondenceon 19-92-1365Owxhmbd Correspondence [id number]:127[facility] CenterAmbulatory Visit Summaryon 15-35-1992Uwkdhsmobk Visit Summary DAI العلي :1945 Visit Date:09/03/2021 [...] Follow-Up Appointments Tuesday 12:20 PM EDT Where: [facility] Medications What How Much [...] Essential hypertension Familial hypercholesterolemia Hyponatremia Lung nodules [facility] CenterGastroenterology Office/Clinic Noteon 26-18-0064Epihtynmnogkydrz Office/Clinic NoteChief Complaint anemia 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 Review of Systems PHQ Score Initial Depression [...] after patient or guardian consented to allow [employer] to record this visit. ALISON care specialist and provider reviewed before signing. ALISON: [...] Date Status influenza virus vaccine, inactivated 10/2020 RecordedNoDayton Children's HospitalComment on above:Result Comment: Electronically Signed By: Marlys LOPEZ MD\.br\Date and Time Signed: 09/03/21 14:17 EDT\.br\Electronically Co-Signed By: Alexandria Rodriguez\.br\Date and Time Co-Signed: 09/03/21 14:16 EDTCBC AUTO DIFFon [id number] #0.1 103/ulNormal0.0-0.1The [facility] HospitalComment on above:Performed By: #### TSH, URIC, CMP #### [facility] [address] [address] [address] Sherman SantosBasophils/100 WBC (Bld)0.8 %Normal0.2-2.0The [facility] Comment on above:Performed By: #### TSH, URIC, CMP #### [facility] [address] [place] [address] Dr. Sherman Cevallos #0.3 103/ulNormal0.0-0.7The [facility] HospitalComment on above: Performed By: #### TSH, URIC, CMP #### [facility] [address] [address] [address] Sherman Romeroosinophils/100 WBC (Bld)4.9 %Normal0.9-7.0The [facility] Comment on above:Performed By: #### TSH, URIC, CMP #### [facility] [address] [place] [address] Dr. Sherman Romerorythrocyte distribution width (RBC) [Ratio]12.3 %Zvaaul36.0-15.0 The [facility] HospitalComment on above:Performed By: #### TSH, URIC, CMP #### [facility] [address] [place] [address] Dr. Sherman SantosHematocrit (Bld) [Volume fraction]44.5 %Majcpp99.0-54.0The [facility] on above:Performed By: #### TSH, URIC, CMP #### [facility] [address] [place] [address] Dr. Sherman SantosHemoglobin (Bld) [Mass/Vol]14.5 g/wRAygthw46.0-18.0The [facility]ment on above:Performed By: #### TSH, URIC, CMP #### [facility] [address] [place] [address] Dr. Sherman Toledo #0.02 10e3/ulNormal0.00-0.03The [facility] on above:Performed By: #### TSH, URIC, CMP #### [facility] [address] [place] [address] Dr. Sherman Tol[place] %0.3 %Normal0.0-0.5The [facility] on above: Performed By: #### TSH, URIC, CMP #### [facility] [address] [place] [address] Dr. Sherman Yeager #2.1 103/ulNormal1.2-3.8The [facility] on above:Performed By: #### TSH, URIC, CMP #### [facility] [address] [place] [address] Dr. Sherman Hernandezhocytes/100 WBC (Bld)34.7 %Wpylko44.5-60.0The [facility]ment on above:Performed By: #### TSH, URIC, CMP #### [facility] [address] [place] [address] Dr. Sherman MoUAL DIFF REQNONormalThe [facility] HospitalComment on above: Performed By: #### TSH, URIC, CMP #### [facility] [address] [place] [address] Dr. Sherman Mckenzie (RBC) [Entitic mass]32.7 kpPlngui82.9-34.0The [facility] HospitalComment on above:Performed By: #### TSH, URIC, CMP #### [facility] [address] [address] [address] Sherman Mckenzie (RBC) [Mass/Vol]32.6 g/zWJukpwz18.9-35.2The [facility] HospitalComment on above:Performed By: #### TSH, URIC, CMP #### [facility] [address] [address] [address] Sherman Mckenzie (RBC) [Entitic vol]100.2 fLCritically high80.0-94.0The [facility] HospitalComment on above:Performed By: #### TSH, URIC, CMP #### [facility] [address] [place] [address] Dr. Sherman Freeman #0.9 103/ulCritically high0.3-0.8The [facility] Comment on above:Performed By: #### TSH, URIC, CMP #### [facility] [address] [address] [address] Sherman Pradhanocytes/100 WBC (Bld)14.6 %Critically high1.7-12.0The [facility] HospitalComment on above:Performed By: #### TSH, URIC, CMP #### [facility] [address] [address] [address] Sherman Buck #2.7 103/ulNormal1.4-6.5The [facility] HospitalComment on above:Performed By: #### TSH, URIC, CMP #### [facility] [address] [address] [address] Sherman Crawleyutrophils/100 WBC (Bld)44.7 %Thzkje13.0-75.0The [facility] HospitalComment on above:Performed By: #### TSH, URIC, CMP #### [facility] [address] [address] [address] Sherman Izquierdolet mean volume (Bld) [Entitic vol]9.6 fLNormal9.5-13.5The [facility] on above:Performed By: #### TSH, URIC, CMP #### [facility] [address] [place] [address] Dr. Sherman LlanosT323 103/pwKibyxt183-934Oxn [facility] on above: Performed By: #### TSH, URIC, CMP #### [facility] [address] [place] [address] Dr. Sherman SantosRBC4.44 106/ulCritically low4.70-6.10The [facility] on above:Performed By: #### TSH, URIC, CMP #### [facility] [address] [place] [address] Dr. Sherman SantosWBC6.0 103/ulNormal4.0-11.0The [facility] on above: Performed By: #### TSH, URIC, CMP #### [facility] [address] [place] [address] Dr. Sherman SantosLIPID PROFILEon [id number]-HDL RATIO NORMSEE [facility] on above:Result Comment: 3.3 - 4.4 LOW RISK 4.4 - 7.1 AVERAGE RISK 7.1 - 11.0 MODERATE RISK >11.0 HIGH RISKPerformed By: #### OSMO #### [facility] [address] [place] [address] Dr. Sherman SantosCholesterol [Mass/Vol]253 mg/dLCritically high<=200The [facility] on above:Performed By: #### OSMO #### [facility] [address] [place] [address] Dr. Sherman SantosCholesterol in HDL [Mass/Vol]42 mg/vSXzwyuq34-89Ioh [facility] on above:Performed By: #### OSMO #### [facility] [address] [place] [address] Dr. Sherman Justinesterol in LDL [Mass/Vol]156.8 mg/dLRegency Hospital Cleveland Eastment on above:Performed By: #### OSMO #### [facility] [address] [place] [address] Dr. Sherman SantosCholesterol.total/Cholesterol in HDL [Mass ratio]6.0 {ratio} NormalThe [facility] on above:Performed By: #### OSMO #### [facility] [address] [place] [address] Dr. Sherman Rees NORMAL> or = 60 mg/dl - LOW CARDIOVASCULAR RISK <40 mg/dl - HIGH CARDIOVASCULAR RISKUniversity [facility]als [facility] on above:Performed By: #### OSMO #### [facility] [address] [place] [address] Dr. Sherman SantosLDL CALC NORMALSEE BELOWUniversity Hospitals Conneaut Medical Center on above:Result Comment: <100 mg/dl OPTIMAL 100 - 129 mg/dl NEAR OR ABOVE OPTIMAL 130 - 159 mg/dl BORDERLINE HIGH 160 - 189 mg/dl HIGH >190 mg/dl VERY HIGH Performed By: #### OSMO #### [facility] [address] [place] [address] Dr. Sherman SantosTriglyceride [Mass/Vol]271 mg/dLCritically high<=150[facility] on above:Performed By: #### OSMO #### [facility] [address] [place] [address] Dr. Sherman SantosVLDL CALC54.2 mg/dLNoMiami Valley HospitalCompontiac general hospital on above: Performed By: #### OSMO #### [facility] [address] [place] [address] Dr. Sherman SantosPROF 14(COMP METB)on 21-91-3834Pqgwnqt [Mass/Vol]4.5 g/dLNormal 3.4-5.0[facility] on above:Performed By: #### TSH, CMP, LIPID, T4 #### [facility] [address] [place] [address] Dr. Sherman SantosAlbumin/Globulin [Mass ratio]1.2 {ratio}NormalThe [facility] HospitalComment on above:Performed By: #### TSH, CMP, LIPID, T4 #### [facility] [address] [address] [address] Sherman Lyons [Catalytic activity/Vol]91 U/XInnigz66-178Fbf [facility] HospitalComment on above:Performed By: #### TSH, CMP, LIPID, T4 #### [facility] [address] [place] [address] Dr. Sherman Dee [Catalytic activity/Vol]53 U/DSzdmfw62-49Ojz [facility] HospitalComment on above:Performed By: #### TSH, CMP, LIPID, T4 #### [facility] [address] [place] [address] Dr. Sherman Cano gap [Moles/Vol]16.7 mmol/LNormalThe [facility] Comment on above:Performed By: #### TSH, CMP, LIPID, T4 #### [facility] [address] [place] [address] Dr. Sherman SantosAST [Catalytic activity/Vol]42 U/LCritically vkqf09-76Hwo [facility] HospitalComment on above:Performed By: #### TSH, CMP, LIPID, T4 #### [facility] [address] [place] [address] Dr. Sherman SantosBilirubin [Mass/Vol]0.7 mg/dLNormal0.2-1.0The [facility] Comment on above:Performed By: #### TSH, CMP, LIPID, T4 #### [facility] [address] [place] [address] Dr. Sherman SanotsCalcium [Mass/Vol]9.4 mg/dLNormal8.5-10.1[facility] Comment on above:Performed By: #### TSH, CMP, LIPID, T4 #### [facility] [address] [place] [address] Dr. Sherman SantosChloride [Moles/Vol]93 mmol/LCritically xvq58-486Dje [facility] HospitalComment on above:Performed By: #### TSH, CMP, LIPID, T4 #### [facility] [address] [place] [address] Dr. Sherman SantosCO2 [Moles/Vol]24.2 mmol/LBurkkd07.0-32.0The [facility] Comment on above:Performed By: #### TSH, CMP, LIPID, T4 #### [facility] [address] [address] [address] Sherman SantosCreatinine [Mass/Vol]0.85 mg/dLNormal0.70-1.30The [facility] HospitalComment on above:Performed By: #### TSH, CMP, LIPID, T4 #### [facility] [address] [address] [address] Sherman RomeroGFR-AF GABONESE>60Normal>=60The [facility] HospitalComment on above:Performed By: #### TSH, CMP, LIPID, T4 #### [facility] [address] [address] [address] Sherman RomeroGFR-NON AF GABONESE>60Normal>=60The [facility] HospitalComment on above:Performed By: #### TSH, CMP, LIPID, T4 #### [facility] [address] [address] [address] Sherman SantosGlobulin (S) [Mass/Vol]3.6 g/dLNormalThe [facility] HospitalComment on above:Performed By: #### TSH, CMP, LIPID, T4 #### [facility] [address] [address] [address] Sherman SantosGlucose [Mass/Vol]71 mg/dLCritically vnt17-629Uvx [facility] Hospitalment on above:Performed By: #### TSH, CMP, LIPID, T4 #### [facility] [address] [address] [address] Sherman SantosPotassium [Moles/Vol]4.9 mmol/LNormal3.5-5.1The [facility] Comment on above:Performed By: #### TSH, CMP, LIPID, T4 #### [facility] [address] [address] [address] Sherman SantosProtein [Mass/Vol]8.1 g/dLNormal6.4-8.2The [facility] Comment on above:Performed By: #### TSH, CMP, LIPID, T4 #### [facility] [address] [address] [address] Sherman SantosSodium [Moles/Vol]129 mmol/LCritically dtx114-715Txo [facility] HospitalComment on above:Performed By: #### TSH, CMP, LIPID, T4 #### [facility] [address] [place] [address] Dr. Sherman Molina nitrogen [Mass/Vol]14.0 mg/dLNormal7.0-18.0The [facility] HospitalComment on above:Performed By: #### TSH, CMP, LIPID, T4 #### [facility] [address] [place] [address] Dr. Sherman Molina nitrogen/Creatinine [Mass ratio]16.5 mg/mgNoMiami Valley HospitalComment on above:Performed By: #### TSH, CMP, LIPID, T4 #### [facility] [address] [place] [address] Dr. Sherman Saldaña4on [id number] [Mass/Vol]6.30 ug/dLNormal4.50-12.10The [facility] HospitalComment on above:Performed By: #### OSMO #### [facility] [address] [place] [address] Dr. Sherman Benavides 31-52-9852EVG4.809 uIU/mLNormal0.358-3.740The [facility] HospitalComment on above:Performed By: #### OSMO #### [facility] [address] [place] [address] Dr. Sherman Zabala [facility] BELOWMercy HospitalComment on above: Result Comment: <0.34 UIU/ml HYPERTHYROID 0.34-5.60 UIU/ml EUTHYROID >5.60 UIU/ml HYPOTHYROIDPerformed By: #### OSMO #### [facility] [address] [place] [address] Dr. Sherman Rangel Referralon [id number] Referral [id number]:127[facility] Vital Signs Date TimeVital SignValuePerforming IcjaslsljLwqrywnp11-16-1655 09:19-0500Body hucgik622.34 cmBenjamin Ball DO Work Phone: [phone] [place], [place] 2750111-06-2025 09:19-0500 Body mass index (BMI) [Ratio]23.9 kg/b5Pmkjelbx Ball DO Work Phone: [phone] [place], [place] 2750111-06-2025 09:19-0500 Body .79 kgBenjamin Ball DO Work Phone: [phone] [place], [place] 2750111-06-2025 09:19-0500 Diastolic blood muebeapu89 mm[Hg]Shay Ball DO Work Phone: [phone] [place], [place] 2750111-06-2025 09:19-0500 Diastolic blood gqnhnfcy29 mm[Hg]Shay Ball DO Work Phone: [phone] [place], [place] 2750111-06-2025 09:19-0500 Heart rate80 /minBenjamin Ball DO Work Phone: [phone] [place], [place] 2750111-06-2025 09:19-0500 Respiratory rate12 /minBenjamin Ball DO Work Phone: [phone] [place], [place] 2750111-06-2025 09:19-0500 Systolic blood vdulnsbt390 mm[Hg]Shay Ball DO Work Phone: [phone] [place], [place] 2750111-06-2025 09:19-0500 Systolic blood hwltqonx182 mm[Hg]Shay Ball DO Work Phone: [phone] [place], [place] 2750107-31-2025 08:50-0400 Body foznit285.34 cmBenjamin Ball DO Work Phone: [phone] [place], [place] 275[address]07-31-2025 08:50-0400 Body mass index (BMI) [Ratio]24 kg/n4Esldyorr Ball DO Work Phone: [facility]07-31-2025 08:50-0400 Body uwbika27.07 kgBenjamin Ball DO Work Phone: [facility]07-31-2025 08:50-0400 Diastolic blood jopodryp08 mm[Hg]Shay Ball DO Work Phone: [phone]07-31-2025 08:50-0400 Heart rate72 /minBenjamin Ball DO Work Phone: [phone]07-31-2025 08:50-0400 Respiratory rate12 /minBenjamin Ball DO Work Phone: [phone]07-31-2025 08:50-0400 Systolic blood gcwjkoeq248 mm[Hg]Shay Ball DO Work Phone: [phone] [place], [place] 9840406-13-2025 14:12-0400 Body xihxel742.3 cmNicholas Brown DPM Work Phone: [facility] CenterYpsbsjidoo98-96-0012 14:12-0400Body mass index (BMI) [Ratio]23.71 kg/q3Bkjwepyv Brown DPM Work Phone: [facility] CenterZneicsdlxf91-03-4942 14:12-0400Body .11 kgNicholas Brown DPM Work Phone: [facility] CenterXxhaddyxdj54-68-5550 14:12-0400Respiratory rate16 /minNicholas Brown DPM Work Phone: [phone]2025 10:24-0400Body ybubfp160.34 cmBenjamin Ball DO Work Phone: [phone]2025 10:24-0400 Body mass index (BMI) [Ratio]24.8 kg/u3Hmmcvvfi Ball DO Work Phone: [phone]2025 10:24-0400 Body nfrguk05.73 kgBenjamin Ball DO Work Phone: [facility]04-16-2025 15:00-0400 Body itcqqr309.3 cmJacobo Brown DPM Work Phone: [facility] CenterPvzzcqzwvu09-07-8234 15:00-0400Body mass index (BMI) [Ratio]23.71 kg/o8Tycnxnlqnohemy Brown DPM Work Phone: [facility] CenterMoqjgfztwl54-65-5213 15:00-0400Body dtqmoc68.11 kgJacobo Brown DPM Work Phone: [facility] CenterJifodbwkay44-78-6562 15:00-0400Respiratory rate16 /Rahul Brown DPM Work Phone: [facility] CenterCswpfhnucw39-36-6900 15:59-0400Body wralsx951.3 cmJacobo Brown DPM Work Phone: [facility] CenterLgkggacbcg02-33-9683 15:59-0400Body mass index (BMI) [Ratio]23.71 kg/c4LwsfdyqyJacobo Brown DPM Work Phone: [facility] CenterCazsbgxjpf63-77-4342 15:59-0400Body .11 kgJacobo Brown DPM Work Phone: [facility] CenterKpqlhsziof23-40-6617 15:59-0400Respiratory rate16 /Rahul Brown DPM Work Phone: [facility] CenterYlhpaquooi41-15-3448 08:34-0400Body ruwurs842.34 cmCl[facility]03-18-2025 08:34-0400Body mass index (BMI) [Ratio]24 kg/d3QkdlhebvyClermont County Hospital03-18-2025 08:34-0400Body weight 78.18 kgClermont County Hospital03-18-2025 08:34-0400Diastolic blood rjsebsfq94 mm[Hg][facility]03-18-2025 08:34-0400Heart rate72 /[facility]03-18-2025 08:34-0400Respiratory rate12 /[facility]03-18-2025 08:34-0400Systolic blood vrcefvvn490 mm[Hg][facility]02-18-2025 08:39-0500Body .34 cmClermont [facility] Hospital02-18-2025 08:39-0500Body mass index (BMI) [Ratio]24 kg/d0FdtalhpywClermont County Hospital02-18-2025 08:39-0500Body .07 kgClermont County Hospital02-18-2025 08:39-0500Diastolic blood jeyjiquc95 mm[Hg][facility] 05-15-2024 08:39-0500Heart rate76 /[facility] 05-15-2024 08:39-0500Respiratory rate12 [facility] 05-15-2024 08:39-0500Systolic blood mm[Hg][facility]12-11-2024 09:16-0500Body eqsfkp669.34 cmClermont [facility] Hospital12-11-2024 09:16-0500Body mass index (BMI) [Ratio]24.3 kg/t1XddpvxvcgClermont County Hospital12-11-2024 09:16-0500Body muwbqq81.09 [facility]12-11-2024 09:16-0500Diastolic blood zuxjtxoc56 mm[Hg] [facility]12-11-2024 09:16-0500Heart rate83 /[facility]12-11-2024 09:16-0500Respiratory rate12 [facility]12-11-2024 09:16-0500Systolic blood ksivcwek693 mm[Hg] [facility]11-06-2024 10:47-0500Body tgdbiu706.3 cmAlex Garcia MD Work Phone: [facility] [phone] 10:47-0500Body mass index (BMI) [Ratio]23.99 kg/i9YxvmvuAlex Garcia MD Work Phone: [facility] CenterGqiwashhxg91-95-1512 10:47-0500Body .02 Jamie Garcia MD Work Phone: [facility] CenterFtkxzqpgir59-27-9199 10:47-0500Diastolic blood jsxtaiyk27 mm[Hg]Alex Garcia MD Work Phone: [facility] CenterMqnosujzdh10-89-1802 10:47-0500Systolic blood xsqetuwq445 mm[Hg]Alex Garcia MD Work Phone: [facility] CenterCnqddhuesb56-00-8414 11:18-0400Body jluqwl804.34 [facility]10-29-2024 11:18-0400Body mass index (BMI) [Ratio]23.9 kg/q0DxgslyactClermont County Hospital10-29-2024 11:18-0400Body ygjhmd75.79 kgClermont County Hospital10-29-2024 11:18-0400Diastolic blood aonbciav98 mm[Hg][facility]10-29-2024 11:18-0400 Heart rate93 /[facility]10-29-2024 11:18-0400 Respiratory rate12 /[facility]10-29-2024 11:18-0400 Systolic blood zzwkipnm769 mm[Hg][facility]08-12-2024 12:00-0400Body .34 cmClermont County Hospital08-12-2024 12:00-0400Body mass index (BMI) [Ratio]23.8 kg/x6TujtbuypjClermont County Hospital08-12-2024 12:00-0400Body zbjgia35.73 kgClermont County Hospital 11-07-2023 12:00-0400Diastolic blood oqnykwxs66 mm[Hg][facility]08-12-2024 12:00-0400Heart rate80 /[facility] 11-07-2023 12:00-0400Respiratory rate12 /[facility] 11-07-2023 12:00-0400Systolic blood cyeeeebl351 mm[Hg][facility]05-10-2024 08:52-0400Body tsatuq076.34 cmClermont County Hospital05-10-2024 08:52-0400Body mass index (BMI) [Ratio]23.7 kg/v2WpewthwgsClermont County Hospital05-10-2024 08:52-0400Body jvppxa34.16 [facility]05-10-2024 08:52-0400Diastolic blood mm[Hg] [facility]05-10-2024 08:52-0400Heart rate80 /[facility]05-10-2024 08:52-0400Respiratory rate12 /[facility]05-10-2024 08:52-0400Systolic blood urgnvcxv458 mm[Hg] [facility]02-21-2024 14:31-0500Body opirrm911.34 cm [facility]02-21-2024 14:31-0500Body mass index (BMI) [Ratio]24.3 kg/f4SmlwpscwhClermont County Hospital02-21-2024 14:31-0500Body jxberx24.15 [facility]02-21-2024 14:31-0500Diastolic blood jyzltizg22 mm[Hg][facility]02-21-2024 14:31-0500 Heart rate77 /[facility]02-21-2024 14:31-0500 Respiratory rate12 /[facility]02-21-2024 14:31-0500 Systolic blood jrdlynsu915 mm[Hg][facility]01-11-2024 08:30-0500Body amzmox482.34 cmClermont County Hospital01-11-2024 08:30-0500Body wkoiwl95.56 kgClermont County Hospital01-11-2024 08:30-0500Diastolic blood krlmyklv87 mm[Hg][facility] 04-07-2023 08:30-0500Systolic blood ogcgxjao941 mm[Hg][facility]10-09-2023 08:30-0400Body sigpjt654.34 cmBenjamin Ball Other [facility] Other [id number] 08:30-0400Body mass index (BMI) [Ratio] 24.29 kg/d2Qihqoidy Ball Other [employer] Other 10-09-2023 08:30-0400Body jydkut88.02 kgBenjamin Ball Other [employer] Other 10-09-2023 08:30-0400Diastolic blood mm[Hg] Shay Ball Other [employer] Other 10-09-2023 08:30-0400Respiratory rate12 /minBenjamin Ball Other [employer] Other 10-09-2023 08:30-0400Systolic blood mm[Hg] Shay Ball Other [employer] Other 04-27-2023 09:30-0400Body gzxaff901.34 cmBenjamin Ball Other [employer] Other 04-27-2023 09:30-0400Body mass index (BMI) [Ratio] 24.18 kg/q8Mugxeuuv Ball Other [employer] Other 04-27-2023 09:30-0400Body .65 kgBenjamin Ball Other [employer] Other 04-27-2023 09:30-0400Diastolic blood duoxldvm97 mm[Hg] Shay Ball Other [employer] Other 04-27-2023 09:30-0400Respiratory rate12 /minBenjamin Ball Other [employer] Other 04-27-2023 09:30-0400Systolic blood fmdzyknn583 mm[Hg] Shay Ball Other [employer] Other 03-30-2023 11:00-0400Body .34 cmThomas Olexa Other [employer] Other 03-30-2023 11:00-0400Body mass index (BMI) [Ratio] 24.27 kg/e2Fdhevl Olexa Other [employer] Other 03-30-2023 11:00-0400Body bcoozo95.93 kgThomas Olexa Other [employer] Other 01-24-2023 09:30-0500Body espzyj551.34 cmBenjamin Ball Other [employer] Other 01-24-2023 09:30-0500Body mass index (BMI) [Ratio] 24.35 kg/o1Zdxkvztr Ball Other [employer] Other 01-24-2023 09:30-0500Body bxbqao82.2 kgBenjamin Ball Other [employer] Other 01-24-2023 09:30-0500Diastolic blood rodveuki28 mm[Hg] Shay Ball Other [employer] Other 01-24-2023 09:30-0500Respiratory rate12 /minBenjamin Ball Other [employer] Other 01-24-2023 09:30-0500Systolic blood dnfnhuos522 mm[Hg] Shay Ball Other [employer] Other 06-29-2022 13:25-0400Blood Pressure LocationMaher SALAM [facility]06-29-2022 13:25-0400 Diastolic blood mm[Hg]Frankel SALAM [facility]06-29-2022 13:25-0400Heart rate61 /minMaher SALAM [facility]06-29-2022 13:25-0400 Respiratory rate16 /minMaher SALAM [facility]06-29-2022 13:25-5622AuX1% (BldA) [Mass fraction]99 %Frankel SALAM [facility]06-29-2022 13:25-0400 Systolic blood kphqvawu193 mm[Hg]Frankel SALAM [facility]06-29-2022 13:10-0400Blood Pressure LocationOrher SALAM [facility]06-29-2022 13:10-0400 Diastolic blood hzjafwch53 mm[Hg]Frankel SALAM [facility]06-29-2022 13:10-0400Heart rate80 /minMaher SALAM [facility]06-29-2022 13:10-0400 Respiratory rate12 /minMaher SALAM [facility]06-29-2022 13:10-5017FxX8% (BldA) [Mass fraction]96 %Frankel SALAM [facility]06-29-2022 13:10-0400 Systolic blood jdtcwydj931 mm[Hg]Frankel SALAM [facility]06-29-2022 13:05-0400Blood Pressure LocationOrher SALAM [facility]06-29-2022 13:05-0400 Diastolic blood kpjmbaot56 mm[Hg]Frankel SALAM [facility]06-29-2022 13:05-0400Heart rate75 /minMaher SALAM [facility]06-29-2022 13:05-0400 Respiratory rate11 /minMaher SALAM [facility]06-29-2022 13:05-6117DdB5% (BldA) [Mass fraction]97 %Frankel SALAM [facility]06-29-2022 13:05-0400 Systolic blood cilpkhwf904 mm[Hg][facility] SALAM [facility]06-29-2022 12:53-0400Body lhllcsjlfyt89.06 [degF]Frankel SALAM [facility]06-29-2022 11:55-0400Body xpguyzdztnd88.06 [degF]Frankel SALAM [facility]06-09-2022 13:09-0400Blood Pressure LocationOrher SALAM [phone]-[facility]eyx[facility] 06-09-2022 13:09-0400Diastolic blood trktndeb47 mm[Hg] [facility] SALAM [phone]-OonobNewark [facility] 06-09-2022 13:09-0400Heart rate78 /minMaher SALAM 142-4092Udzzft-AlevpNewark [facility] 06-09-2022 13:09-0400Respiratory rate16 /minMaher SALAM 586-7689Stvxta-YwabzNew[facility] 06-09-2022 13:09-0400Systolic blood apmxniny794 mm[Hg] Marlys LOPEZ 693-6898Vikain-NypqbNew[facility] 06-09-2022 09:15-0400Body vuhjge237.34 cmNikjaved Puckettarney Other [employer] Other 06-09-2022 09:15-0400Body mass index (BMI) [Ratio] 23.71 kg/v8NfdzfqzvRenee Lawrence Other [employer] Other 06-09-2022 09:15-0400Body infyem17.11 kgJejaved Lawrence Other [employer] Other 11-04-2021 11:30-0400Body .34 cmThomas Olexa Other [employer] Other 11-04-2021 11:30-0400Body mass index (BMI) [Ratio] 24.96 kg/k9Wkzhvy Olexa Other [employer] Other 11-04-2021 11:30-0400Body pialti38.19 kgThomas Olexa Other [employer] Other Encounters Encounter DateEncounter TypeCare ProviderFacilityStart: 01-31-2025 End: 73-79-4597Phzmrnv encounter procedureThomas Robyn Starkey MD-[facility] [place] Work Phone: Start: 01-31-2025 End: 88-60-4316nxphdrfttdCtavvdae Ball DO Work Phone: -[facility]Start: 01-31-2025 End: 91-89-1586zuxgwjyewnOeeoayef Ball DO Work Phone: [facility] ClinicStart: 01-31-2025 End: 23-91-5995Lzikmqm encounter procedureBenjamin Ball DO-[facility] Work Phone: Start: 01-22-2025 End: 21-78-0727hldmgfuqhkZosvtslh Ball DO Work Phone: [phone]-Zvacoxxuc Health OrthopedicsStart: 01-22-2025 End: 69-10-5898Ktvbydv encounter procedureHawa Starkey [facility] Work Phone: Start: 12-04-2024 End: 90-13-2994cthqpggxahQdjsjkqx Ball DO Work Phone: [facility] Work Phone: Start: 12-04-2024 End: 34-20-7229Ygckhek encounter procedureHawa Starkey [facility]As[facility] Work Phone: Start: 03-38-1963Efh-patient / Non-visitBenjamin Ball DO-[facility] Work Phone: Start: 10-25-2024 End: 60-09-3783cwnlfurndmBidussvw Ball DO Work Phone: [facility] Work Phone: Start: 10-25-2024 End: 43-65-3857Vtljrqq encounter procedureBenkennmin Ball DO-[facility] Work Phone: Start: 10-25-2024 End: 94-05-8066Nfjrrvw encounter statusBenjamin Ball [facility] Limatart: 09-07-2024 End: 29-45-5737Swzqhz outpatient visit 10 minutesJacobo Brown DPM Work Phone: [facility] [place] PODComment on above:Capsulitis of metatarsophalangeal (MTP) joint of right foot (Primary Dx); Hallux rigidus of right foot; DJD (degenerative joint disease), ankle and foot, right; Pain due to onychomycosis of toenails of both feetStart: 09-07-2024 End: 17-70-1798taixnpoodoNOPIXUDK A BROWNNot AvailableStart: 09-07-2024 End: 81-85-3968Esogeg flowsheetNicholas A Brown DPM Work Phone: [facility] [place] PODStart: 09-07-2024 End: 10-33-5646Nghbqh flowsheetNicholas A Brown DPM Work Phone: [place] PODStart: 09-04-2024 End: 35-08-7246llqinplpjsOhvnlfuy Ball DO Work Phone: [facility] Work Phone: Start: 09-04-2024 End: 30-64-9331Ohhbvlz encounter procedureBenjamin Ball DO Work Phone: [facility] Work Phone: Start: 07-11-2024 End: 91-40-9785Dglkff outpatient visit 15 minutesNicnohemy Brown DPM Work Phone: [place] PODComment on above:Hallux rigidus of right foot (Primary Dx); Capsulitis of metatarsophalangeal (MTP) joint of right foot; DJD (degenerative joint disease), ankle and foot, rightStart: 07-11-2024 End: 92-18-1033qzrpyynjwhJMOEKCJO Robyn BROWNNot AvailableStart: 07-11-2024 End: 38-73-3168Yprvhj flowsheetNicholas A Brown DPM Work Phone: [facility] [place] PODStart: 07-11-2024 End: 48-15-7282Tiikac flowsheetNicholas A Brown DPM Work Phone: [place] PODStart: 07-03-2024 End: 09-61-6455rwzwwgvaphKaqmqzat Ball DO Work Phone: [facility] Work Phone: Start: 07-03-2024 End: 91-63-4249Rgungull ReferredShay Roca DO Work Phone: [facility] [address] Work Phone: start: 06-27-2024 End: 19-62-3907Hvknke outpatient new 30 minutesJacobo Brown DPM Work Phone: [place] PODComment on above:DJD (degenerative joint disease), ankle and foot, right (Primary Dx); Hallux rigidus of right foot; Acquired deformity of right toe; Capsulitis of metatarsophalangeal (MTP) joint of right foot; Pain due to onychomycosis of toenails of both feetStart: 06-27-2024 End: 77-38-4882ltbjlmklvaERHKIKLT A BROWNNot AvailableStart: 06-12-2024 End: 00-00-8863aiifpekyhrQsdiimxspSt. [facility] of [facility] Work Phone: Start: 06-12-2024 End: 34-99-8119Wgjdllm encounter procedureUn[facility] Physician GroupW[facility] Work Phone: Start: 05-15-2024 End: 23-18-9478xawjfegicgIfpbdsjhtSt. [facility] of [facility] Hospital Work Phone: Start: 05-15-2024 End: 21-20-5445Osbpmbr encounter procedureUn[facility] Work Phone: Start: 03-07-2024 End: 15-74-3296Qkpjadz encounter procedureUnc Health [facility] Phys[facility] Work Phone: Start: 02-01-2024 End: 49-67-7722Coqqmr Jyoti Garcia MD Work Phone: noms ENTStart: 02-01-2024 End: 73-83-1737Apgdva Jyoti Garcia MD Work Phone: [facility] CI ENTStart: 02-01-2024 End: 99-04-1644Ralrxo outpatient new 45 minutesAlex Garcia MD Work Phone: noms CI ENTComment on above:Chronic vasomotor rhinitis (Primary Dx)Start: 02-01-2024 End: 81-47-2031qwedyvirfqCEOOSG H TIMMISNot AvailableStart: 01-24-2024 End: 25-36-5291vuytwvlruyFytbvfhiySt. [facility] of [facility] Hospital Work Phone: Start: 01-24-2024 End: 22-90-7460Ynrgrhg encounter procedureUn[facility] Work Phone: Start: 11-07-2023 End: 29-78-8320pprxwuwpynIqmkzejotLakeHealth Beach[facility] Work Phone: Start: 11-07-2023 End: 60-21-5730Piublni encounter procedureUn[facility] Work Phone: Start: 40-82-1494Uei-patient / Non-visitUnc Health [facility] Phys[facility] Work Phone: Start: 08-05-2023 End: 84-04-9549nucieaftapRzbmvlanuSt. [facility] of [facility] Hospital Work Phone: Start: 08-05-2023 End: 80-40-3372Jlawnanqe for general adult medical examination without abnormal findingsSouthview Medical Centertart: 08-05-2023 End: 39-99-6363Zuptike encounter procedureUn[facility] Health [facility] Work Phone: Start: 40-52-4681Icc-patient / Non-visitUnc Health [facility] Phys[facility] Work Phone: Start: 06-02-2023 End: 02-12-9217Nfdjszj encounter procedureUn[facility] Health [facility] Work Phone: Start: 05-18-2023 End: 70-96-4152ptvoeaejtnLiwjwcozbLakeHealth [facility] Center Work Phone: Start: 05-18-2023 End: 32-29-9674Nrungfn encounter procedureUn[facility] Health [facility] Work Phone: Start: 04-07-2023 End: 48-96-2480Tfliemb encounter procedureUnc Health [facility] Physician Group-[facility] Work Phone: Start: 01-03-2023 End: 74-00-1085fyclfunwzhTcfmeljn Ball Other [employer] Other Start: 59-40-9492Rupcqk outpatient visit 25 minutes Shay [facility] ClinicStart: 07-30-2022 End: 37-81-8253uoxyehbiljBK SHAY ROCAFacility:I6Omozv: 07-22-2022 End: 23-72-2652axmgscwyxrHitbirjj Ball Other [employer] Other Start: 99-36-2309Qxsevaecy for general adult medical examination without abnormal findingsBented Roca Medical ClinicStart: 44-52-6360Kfdgazlh preventive med est patient 65yrs& olderBelee Roca Medical ClinicStart: 38-81-9691Oqeypt outpatient visit 15 minutesThomas OlexaFPG [facility] OrthopedicsStart: 06-24-2022 End: 19-85-6480kpgtslugflFN Shay Roca Work Phone: [employer] Other Start: 06-24-2022 End: 80-40-5597Uxlbzsj encounter procedureDO Shay Roca Work Phone: [facility] Start: 04-20-2022 End: 20-72-7708dmeushidroRgwocsnd Ball Other [employer] Other Start: 67-91-6394Uhiljv outpatient visit 25 minutes Shay RocaIMELDAChandan Roca Medical ClinicStart: 03-02-2022 End: 80-56-4357bzyypqegjtYL SOURAV BEDOLLA .Facility:O5Wtjxq: 03-02-2022 End: 73-55-3208ymonxqpzhbYF SHAY BALLFacility:J1Bmmgx: 01-12-2022 End: 41-95-0215zbzxnvdhfzVZ SHAY DUENWEGFacility:G5Xnpkj: 09-23-2021 End: 01-37-2264Bvpuajt encounter procedureMaher SALAM [facility] Start: 09-03-2021 End: 34-29-5827xqmvswbsoeIqygozyg [place] Other [employer] Other Start: 56-59-2638Jikvan outpatient visit 15 minutes Renee Mihir [facility] OrthopedicsStart: 09-03-2021 End: 69-68-6314Ixiezer encounter procedureHonorhealth [facility] SAL 509-9146Jfumpz-IgbvxTrinity Health System [facility] Start: 08-04-2021 End: 07-96-5922eqslvwnpshZE BENJAMIN CHANELLEcility:J4Pijae: 04-09-2021 End: 51-11-5313lwllizufslWnyryz Olexa Other [employer] Other Start: 95-21-7512Hvafiv follow up visit related to original pxThomas OlexaFPG [facility]ley OrthopedicsStart: 02-26-2021 End: 27-65-8630mmebuthufhRpfcul Olexa Other [employer] Other Start: 47-65-3621Vhvmwelry encounterThomas OlexaFPG [facility] OrthopedicsStart: 02-02-2021 End: 60-94-8368qczggbqofhVnvitx Olexa Other [employer] Other Start: 09-70-5282Lulceysgi encounterThomas OlexaFPChandan Gayle OrthopedicsStart: 01-29-2021 End: 41-62-7290nzzbfamiscXcebxz Olexa Other [employer] Other Start: 39-70-0805Rkowawpqx for other preprocedural examinationThomas OlexaFPG [facility] OrthopedicsStart: 57-54-0115Cvtzqi outpatient visit 25 minutesThomas OlexaFPG [facility] Procedures DateProcedureProcedure DetailPerforming ClinicianStart: 69-78-3710LX of right shoulderBenjamin Ball DO Work Phone: Start: 68-94-0633Ysmqg X-ray of right shoulderBenjamin Ball DO Work Phone: Start: 01-31-0764Ybmxp foot complete minimum 3 views Jacobo Brown DPM Work Phone: Start: 97-18-5741IIS screeningDR SHAY BALLComment on above:Performed By: #### TSH, URIC, CMP #### [facility] [address] [place] [address] Dr. Sherman SantosStart: 76-11-6841Ymbxg X-ray of right shoulderDO Shay Ball Work Phone: Start: 34-88-1118BmcowttyqspUvytq SALAM Start: 61-85-6842Ntqzlniyaceeyzpwudkzdrxcqj gastric outlet reductionMaher SALAM Start: 48-01-8924HHC screeningDR SHAY BALLComment on above:Performed By: #### PSASC #### [facility] [address] [place] [address] Dr. Sherman SantosHistory of repair of musculotendinous cuff of shoulderS/P right rotator cuff repairDO Shay Ball Work Phone: Comment on above:Problem List clean-up per request of Phys. EHR Cmte Plan of Treatment DateCare ActivityDetailAuthorStart: 09-07-2024 End: 81-34-6256Hudjuhm encounter procedureNOMS [place] PODComment on above:Hallux rigidus of right foot (Primary Dx); Capsulitis of metatarsophalangeal (MTP) joint of right foot; DJD (degenerative joint disease), ankle and foot, right; Pain due to onychomycosis of toenails of both feetStart: 94-65-3204Umjip X-ray of right shoulderXR shoulder RT min 2V*[facility] Centertart: 70-01-8015SR Shoulder - right ViewsSouthview Medical Centertart: 07-11-2024 End: 84-62-9362Hrwhzyk encounter syxgmlpmj70/16/2025 3:10 PM EDT Office Visit [facility] [place] [facility] [address] [place] [id number] Jacobo Brown DPM [address] [facility] [address] [place] [address] Hallux rigidus of right foot (Primary Dx); Capsulitis of metatarsophalangeal (MTP) joint of right foot; DJD (degenerative joint disease), ankle and foot, rightNOMS [place] PODComment on above:Hallux rigidus of right foot (Primary Dx); Capsulitis of metatarsophalangeal (MTP) joint of right foot; DJD (degenerative joint disease), ankle and foot, rightStart: 02-01-2024 End: 96-29-8886Sdnokwr encounter ijzvxvmox28/06/2024 10:50 AM EST Office Visit [facility] [address] [facility] [address] [place] [id number] Alex Garcia MD [address] [facility] [address] [place], [place] [id number] ArrivedNOMS CI ENTComment on above:ArrivedStart: 13-70-9082Nynixoe referralEast [facility] Work Phone: Comprehensive metabolic 2000 panel - Serum or Plasma [facility]CT Shoulder - right WO contrastClermont County HospitalPatient referralEast [facility] Work Phone: [facility] Immunizations Immunization DateImmunizationNotesCare JodvfxumUqvehite54-68-0684wtjyvgdof, high dose seasonal, preservative-freeBenjamin Ball DO Work Phone: [facility]10-18-2024influenza, high dose seasonal, preservative-freeBenjamin Ball DO Work Phone: [facility]10-10-2023Influenza vaccine, quadrivalent, adjuvantedBenjamin Ball DO Work Phone: [facility]10-10-2023influenza virus vaccine, unspecified formulationClermont County Hospital 63-67-1688Ytszlocmq vaccine, quadrivalent, adjuvantedBenjamin Ball DO Work Phone: [facility]10-16-2022influenza virus vaccine, split virus (incl. purified surface antigen)Shay Chanelle Other [employer] Other 905337-91-3375fathpxxqk virus vaccine, unspecified formulationClermont County Hospital10-16-2022influenza, high dose seasonal, preservative-freeBenjamin Ball Other [employer] Other 07-061657-55-3215crcgbcfyhlhe polysaccharide vaccine, 23 valentBenjamin Ball Other [facility]04-14-2022COVID-19 mRNA-1273 (Moderna)Shay Ball DO Work Phone: [facility]10-26-2021COVID-19 mRNA-1273 (Moderna)DO Shay Ball Work Phone: [facility]09-12-2021Influenza vaccine, quadrivalent, adjuvantedBenjamin Ball DO Work Phone: [facility]09-12-2021influenza virus vaccine, split virus (incl. purified surface antigen)Shay Chanelle Other [employer] Other 09157560-76-8745pllnqpetd virus vaccine, unspecified formulationClermont County Hospital08-01-2021influenza virus vaccine, unspecified formulationOrher SALAM 695-8630Iroprj-VeswkNew[facility] Hospital [facility] 03182192-74-9562TFSZJ-10 Vaccine Moderna - Documentation Purposes OnlyThomas Olexa Other [facility]03-02-2021COVID-19 Vaccine Moderna - Documentation Purposes OnlyThomas Olexa Other [facility]01-19-2021zoster vaccine recombinantBenjamin Ball Other [facility]01-19-2021zoster vaccine, liveBenjamin Ball Other [facility]11-06-2020zoster vaccine recombinantBenjamin Ball Other [facility]11-06-2020zoster vaccine, liveBenjamin Ball Other [facility]10-30-2020 pneumococcal conjugate vaccine, 13 valentBenjamin Ball Other [facility]10-17-2019Seasonal trivalent influenza vaccine, adjuvanted, preservative freeBenjamin Ball DO Work Phone: [facility]10-17-2018influenza, injectable, quadrivalent, preservative freeBenjamin Ball DO Work Phone: [facility] Payers DatePayer CategoryPayerPolicy [id number] Health InsuranceMEDICAL MUTUAL [id number] 2013MedicareMEDICARE [id number] () [id number]1774-19-8528Venroelvbi of Defense ( and others)[id number] .7.555885.81830185-10-1102Yvcgyuqkwf of Defense ( and others)[id number] 88-76-0824Lyscfcuvid of Defense ( and others)[id number] 1960Medicare [id number] .7.73756[id number] 2.16.840.1.149942.3.579.2.593 08-49-8304Rqbmowx5253623 2.16.840.1.323653.3.579.2.09576-95-0993Xtbvmlx7890665 2.16840.1.274711.3.579.2.97942-57-5803Potquxc6134102 2.16840.1.327505.3.57[id number] 2.840.1.568086.3.579.2.24[id number] 2.840.1.886300.3.579.2.406785-25-8603Myjtegr4249100 2.0.1.056772.3.579.2.856532-12-6792Habyrcz9413112 2.0.1.759328.3.579.[id number] 2.840.1.426624.3.579.2.3454Iajtahn5946804 2.840.1.339477.3.579.2.593 Tanwibm9913580 2.840.1.673384.3.579.2.691Sybomff24474477 2.840.1.194[id number] 2.840.1.043215.3.579.2.531 [id number] 2.840.1.003927.3.579.2.531 Social History DateTypeDetailFacilityStart: 60-22-0054Lyeifba smoking statusHeavy tobacco smoker (finding)[employer] Other Start: 02-01-2024 End: 18-56-8250Nwd Assigned At [facility] [employer] Other Start: 03-05-2021 End: 12-89-4091Chpbkjd smoking status NHISSmoker (finding)[facility] Centertart: 75-67-3861Lll Assigned At [facility] HospitalTobacco smoking status NHISTobacco smoking consumption unknownNOMS HealthcareStart: 39-08-6639Zqy assigned at birthNot on fileNOMS Healthcare Start: 03-05-2021 End: 96-56-1885Lddnwlu smoking status NHISSmokes tobacco dailyNOMS Healthcare History of tobacco useCigarette SmokerNOMS HealthcareStart: 92-41-1209Dassmgu use and exposureSmokeless tobacco non-userNOMS HealthcareStart: 02-01-2024 End: 45-03-5867Skzeupuul beverage intakeCurrent drinker of alcohol (finding)[facility] HealthcareStart: 02-01-2024 End: 73-54-7869Drlhwub of Social functionNOMS HealthcareStart: 05-15-2024 End: 97-54-7931JpmCbgk (finding)[facility] Medical Equipment Procedure CodeEquipment CodeEquipment Original TextEquipment IdentifierDates Arthroscopy, shoulderTendon/ligament bone anchor, bioabsorbable ()[id number] FDAStart: 16-72-9061Cifnouohyqf, shoulderTendon/ligament bone anchor, bioabsorbable ()[id number] FDAStart: 02-27-2021 Functional Status FekeWggwktsmarRsqedyPmsmigup26-73-6945Ilueincdpu StatusN/AFemeka - [facility] Clinical Notes 01-29-2021 to 01-31-2025 Note Date & KpnpIwbrRnfycqic76-66-5366 Radiology Diagnostic study noteCLEVELAND [place] [address] CT Scan Report Signed Patient: Dai العلي MR#: [id number] : 1945 Acct:[id number] Age/Sex: 79 / M ADM Date: 5 Loc: CT Room: Type: [facility] Attending Dr: Hawa Starkey MD Copies to: [...] Ramires M.D. 01/31/2025 5:52 PM Dictation Location: [place] [address] Transcribed By: [facility] 01/31/251751 Dictated By: Doc Ramires II, MD 01/31/251747 Signed By: 01/31/251751 [facility] Work Phone: 1(786) 729-501709-09-2025 Evaluation note* Diagnosis Onset Date Resolution Status [...] adenoma of colonacute January 31, 2025 9:02am [facility] Work Phone: 1(143) 318-673207-31-2025 Evaluation note* Diagnosis Onset Date Resolution Status [...] 11:27amTear of right supraspinatus tendonacuteSeptember 2024 11:27am [facility] Work Phone: 1(709) 947-811807-31-2025 Evaluation note* Diagnosis Onset Date Resolution Status [...] 10:59amTear of right supraspinatus tendonacuteOctober 2024 10:59am [facility] Work Phone: 1(753) 984-404706-13-2025 History of Present illness Narrative* Jacobojanet Brown, [...] 1-10 Jacobo Brown DPM documented in this encounterMissouri Baptist Medical CenterXpxdlrikfo15-59-8877 Evaluation note* Diagnosis Onset Date Resolution Status Admit Date Primary osteoarthritis, right shoulder acuteJune 2024 9:38amRight shoulder tendonitisacuteJune 2024 9:38am Tear of right supraspinatus tendonacuteJune 2024 9:38amBarrett's esophagus without dysplasiaacuteJuly 2024 8:36amHypercholesterolemiaacuteJuly 2024 8:36amLung nodule, multipleacuteJuly 2024 8:36amMucopurulent chronic bronchitisacuteJuly 2024 8:36amNicotine addictionacuteJuly 2024 8:36amPrimary hypertensionacuteJuly 2024 8:36amScreening PSA (prostate specific antigen)acuteJuly 2024 8:36amTubular adenoma of colonacuteJuly 2024 8:36amWellness examinationnoneactiveJuly 2024 8:36am [facility] Work Phone: 1(325) 625-174604-16-2025 History of Present illness Narrative* Jacobo Brown [...] symptomsreturn Jacobo Brown DPM documented in this encounterMissouri Baptist Medical CenterKrhkxbjoyo75-08-5587 History of Present illness Narrative* Jacobo Brown [...] 10 Jacobo Brown DPM documented in this encounterMissouri Baptist Medical CenterCncrejbgew12-42-0260 History of Present illness Narrative* Jacobo Brown [...] 10 Jacobo Brown DPM documented in this encounterMissouri Baptist Medical CenterIjnnkgnxoo45-50-6663 Evaluation note* Diagnosis Onset Date Resolution Status Admit Date Nicotine addiction acuteMatheny Medical And Educational Centerch 2024 8:13amPrimary hypertensionacuteMaych 2024 8:13am Right shoulder painacuteMaych 2024 8:13amRotator cuff tendonitisacuteMaych 2024 8:13amPrimary osteoarthritis, right shoulderacuteJune 2024 9:38amRight shoulder tendonitisacuteJune 2024 9:38amTear of right supraspinatus tendonacuteJune 2024 9:38am [facility] Work Phone: 1(669) 108-314402-18-2025 Evaluation note* Diagnosis Onset Date Resolution Status Admit Date Primary hypertension acuteFebruary 2024 8:28amAcute bronchitis due to other specified organisms noneactiveFebruary 2024 8:28amNicotine addictionacuteMarch 2024 8:13amPrimary hypertensionacuteMatheny Medical And Educational Centerch 2024 8:13amRight shoulder painacute March 2024 8:13amRotator cuff tendonitisacuteMarch 2024 8:13am [facility] Work Phone: 1(625) 983-210612-11-2024 Evaluation note* Diagnosis Onset Date Resolution Status Admit Date Mucopurulent chronic bronchitis acuteDecember 2023 8:46amNicotine addictionacuteMarch 07, 2024 8:46am Primary hypertensionacuteMarch 07, 2024 8:46amRight shoulder painacute March 07, 2024 8:46amRotator cuff tendonitisacuteDeceer 2023 8:46am [facility] Work Phone: 1(105) 154-623111-06-2024 History of Present illness Narrative* Alex Garcia [...] for a Clar[employer] procedure. documented in this encounterMissouri Baptist Medical [id number] Evaluation note* Encounter Date Diagnosis Assessment Notes [...] in appetite, bowel habits, melena or hematochezia [employer] Other 04-27-2023 Evaluation note* Encounter Date Diagnosis [...] and exercise. Reviewed age-appropriate preventive testing recommended. [employer] Other 03-30-2023 Evaluation note* Encounter Date Diagnosis [...] May,Other specified postprocedural states (ICD-10 - Z98.890) [employer] Other 01-24-2023 Evaluation note* Encounter Date Diagnosis [...] to respiratory infections, vascular disease and cancers. [employer] Other 06-30-2022 Note [id number]:127[facility]21 Hospital Discharge instructions Patient [...] Follow these instructions at home: Medicines Take dusk-rco-wdsektr and prescription medicines only as told by [...] powder, vinegar, hot sauces, and barbecue sauce. ?[place] fruit juices and citrus fruits, such as oranges, vikas, and limes. ?Tomato-based foods, such as red sauce, chili, salsa, and pizza with red sauce. ?Fried and fatty foods, such as donuts, estonian fries, potato chips, and high-fat dressings. ?High-fat [...] 04/21/2005 Document Revised: 11/03/2018 Document Reviewed: 11/03/2018 [employer] Patient Education 2020 [employer]. 09/23/2021 13:01:51 Upper Endoscopy, Adult, Care After [...] what activities are safe for you. Take mpqi-voi-efnrpqs and prescription medicines only as told by [...] 09/12/2012 Document Revised: 09/05/2018 Document Reviewed: 08/14/2018 [employer] Patient Education 2020 [employer]. 09/23/2021 13:01:51 Diverticulosis Diverticulosis Diverticulosis is a [...] overweight. Not getting enough exercise. Smoking. Taking myza-tst-dyvhoxh pain medicines, like aspirin and ibuprofen. Having [...] health care provider or your diet and nutritional services host (dietitian). ?Take a fiber supplement or probiotic, if your health care provider approves. Take aosf-zdu-eqdffux and prescription medicines only as told by [...] 12/09/2004 Document Revised: 02/24/2018 Document Reviewed: 01/31/2017 [employer] Patient Education 2020 [employer]. 09/23/2021 13:01:51 Colon Polyps Colon Polyps Polyps [...] 12/08/2004 Document Revised: 06/29/2018 Document Reviewed: 06/29/2018 [employer] Patient Education 2020 [employer]. 09/23/2021 13:01:51 Colonoscopy, Care After Surgery Salam (Custom) Colonoscopy Care After Surgery Please read the instructions outlined below and refer to this sheet in the next few weeks. These discharge instructions provide you with general information on [facility] Your doctor may also give you [...] With:Marlys LOPEZ Address: [address] [place] [address] Business (1) When: Unknown Comments:Call for any problems.Office will call you if follow up is needed. [facility]06-09-2022 Evaluation note* Encounter Date Diagnosis Assessment Notes Treatment Notes Treatment Clinical Notes Aug, Tear of right supraspinatus tend on (ICD-10 - M75.101) Aug,steoarthritis of right acromioclavicular joint (ICD-10 - M19.011) Aug,ther specified postprocedural states (ICD-10 - Z98.890)Patient is progressing well. Continue motion and strengthening exercises filler leaf cutter long. Instructed on proper body mechanics to avoid repeat injury. Call with questions/concerns. [employer] Other 01-13-2022 Evaluation note* Encounter Date Diagnosis [...] over doing activity to avoid repair failure. [employer] Other 11-04-2021 Evaluation note* Encounter Date Diagnosis [...] - M25.511) Jan,re-op examination (ICD-10 - Z01.818) [employer] Other Evaluation + Plan note Future Appointments Appointment Date:09/23/2021 12:20:00 PM Scheduled Provider: Location:[facility] Appointment Type:Surgery [facility] Evaluation noteNo [facility] Other Evaluation noteNo assessment information available [facility] Work Phone: Evaluation note* Diagnosis Onset Date Resolution Status Primary hypertension acutePrimary osteoarthritis, right shoulderacuteRight shoulder painacutePrimary osteoarthritis, right shoulderacuteRight shoulder tendonitisacuteTear of right supraspinatus tendonacuteBarrett's esophagus without dysplasiaacute HypercholesterolemiaacuteLung nodule, multipleacuteMucopurulent chronic bronchitisacuteNicotine addictionacutePrimary hypertensionacuteTubular adenoma of colonacuteScreening PSA (prostate specific antigen)noneactiveWellness examinationnoneactive [facility] Work Phone: Evaluation note* Diagnosis Onset Date Resolution Status Mucopurulent chronic bronchitis acuteNicotine addictionacutePrimary hypertensionacutePrimary osteoarthritis, right shoulderacuteRight shoulder painacute [facility] Work Phone: Evaluation note* Diagnosis Onset Date Resolution Status Mucopurulent chronic bronchitis acuteNicotine addictionacutePrimary hypertensionacutePrimary osteoarthritis, right shoulderacuteRight shoulder painacuteChronic vasomotor rhinitisacute Hypertrophy, nasal, turbinateacuteNicotine addictionacute [facility] Work Phone: Evaluation note* Diagnosis Chronic vasomotor [...] Medical 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 [facility] Other [facility] Narrative - ReportedNort [facility] Other [facility] general Narrative - Reported* Type Description Date Medical History high blood pressure Medical 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 Surgical HistoryRight shoulder arthroscopy with supraspinatus rotator cuff repair[using one 5.5 tape loaded swivel lock medial row, one 5.5 swivel lock lateral row/Subacromial decompression/Extensive debridement inferior labral tear DOS 02/28/2112/2021 [facility] Other [facility] general Narrative - Reported* Type Description Date [...] labral tear DOS 02/28/2112/2021 Hospitalization Historysee above [facility] Other Hospital course Narrative No data available for this section [facility] Discharge instructions No data available for this section [facility] Discharge instructionsAmbulatory Orders* Referral to ENT Time Frame: 01/24/24, Location: None Selected [facility] Work Phone: Progress note No data available for this section [facility] for [facility] (narrative)No reason for referral information availableEast [facility] Work Phone: Summary Purpose Family History No [...] 2024 11:27am Tear of right supraspinatus tendon [facility] 2024 11:27am Chief Complaint Admit Date wellness [...] 11:27am Tear of right supraspinatus tendon [facility] 2024 11:27am Primary osteoarthritis, right shoulder O [...] DateEnd Date Shay Roca MD [address] [place] [id number] PCP - [facility]02/01/24 Team Status: Inactive Member Role Status Dates Shay Roca DO Primary Care Provider Active Start: July 03, 2024 End: July 03matilde Pierre - [facility] , CHCAttending ProviderActiveStart: July 03, 2024 End: July 03, 2024Team MemberRelationshipSpecialtyStart DateEnd Date Shay Roca MD PCP - [facility]02/01/24Team MemberRelationshipSpecialtyStart Date End Date Shay Roca MD PCP - [facility]02/01/24 Team Status: Inactive Member Role Status Dates [...] DateEnd Date Shay Roca DO [address] [place] [id number] PCP - [facility]02/01/24Team MemberRelationshipSpecialtyStart Date End Date Shay Roac DO [address] [facility] [place] [id number] [facility] Team Status: Inactive Member Role Status Dates [...] section and content) DATE CREATED AUTHOR 11/21/2021 [facility] DATE CREATED AUTHOR AUTHOR'S ORGANIZ ATION 07/30/2022 [facility] DATE CREATED AUTHOR AUTHOR'S ORGANIZ ATION 09/10/2024 [facility] DATE CREATED AUTHOR AUTHOR'S ORGANIZ ATION 02/02/2025 [facility] Goals (unrecognized section and content) [...] BE BASED ON THE PRIMARY CLINICAL RECORDS. [facility]. provides no warranty or guarantee of the accuracy or completeness of information in this document.
[2025-02-28 08:35] LABS: Anion Gap 11.7; Blood Urea Nitrogen 22.0 mg/dL (7.0-18.0); Calcium 9.0 mg/dL (8.5-10.1); Carbon Dioxide 29.3 mmol/L (21.0-32.0); Chloride 101 mmol/L (98-107); Estimated GFR (African America >60 (>=60 mL/min/1.73m^2); Estimated GFR (Non-African Ame >60 (>=60 mL/min/1.73m^2); Glucose 90 mg/dL (74-106); Potassium 4.0 mmol/L (3.5-5.1); Sodium 138 mmol/L (136-145)
[2025-03-02 07:09] LABS: Osmolality, Urine 320 mOsmol/kg (.)
== END 2025-02-28 07:15 | disposition home or self-care (01) ==
LOC: LAB 07:14
PROVIDERS: PCP Internal Medicine; Visit Provider Internal Medicine
DX: E87.1 Hypo-osmolality and hyponatremia (principal); I10 Essential (primary) hypertension
CPT/HCPCS: 36415; 80048; 83930; 83935; 84300

== ENCOUNTER 2025-03-07 06:06 | Day surgery (SDC) | payer OTHER, MEDICARE, SELFPAY ==
[2025-02-18 15:10] VITALS: BP 147/69; PULSE 60; TEMP 36.5; O2SAT 98; BMI 24.1
[2025-03-07] VITALS (12 sets, daily range): BP systolic 140–171; BP diastolic 58–83; PULSE 52–66; TEMP 36.4; O2SAT 92–99; BMI 23.3
--- OUTSIDE RECORDS SUMMARY | 2025-03-07 06:09 | XMS_ITS | CCD ---
Author Organization [facility] Care Team Providers Care Stripe Matcher Name Role Phone SHAY ROCA Primary Care Physician Hawa Starkey Unavailable Renee Lawrence Unavailable Shay Roca Unavailable DO Shay Roca Primary Care Provider MD Hawa Starkey Attending Provider [phone] CHANELLE, DR BALL Consulting Unavailable BALL, DR [...] Provider Shay Roca DO Primary Care Provider [phone] [facility] [place] Attending Provider Shay Roca MD Primary Care Provider Hawa Starkey MD Attending Provider [phone] [place] Primary Care Provider JACOBO BROWN Attending Unavailable JACOBO BROWN Referring Unavailable JACOBO BROWN Attending Unavailable JACOBO BROWN Attending Unavailable ALEX GARCIA Attending Unavailable SHAY ROCA Referring Unavailable Shay Roca DO Primary Care Provider Hawa Starkey MD Attending Provider [place], Shay Attending Provider [phone] Shay Roca DO Primary Care Provider Hawa Starkey MD Attending Provider [place] Shay Primary Care Provider Hawa Starkey MD Attending Provider [phone] [place], Shay Attending Provider [phone] Shay Roca Primary Care Unavailable [facility], [place] Admitting Unavailable [facility], [place] Attending Unavailable Olexa, Hawa Admitting Unavailable Olexa, Hawa Attending Unavailable Shay Roca Primary Care Unavailable Shay Roca Primary Care Unavailable Olexa, Hawa Admitting Unavailable Olexa, Hawa Attending Unavailable Allergies Allergy ClassificationReported Allergen(s)Allergy TypeDate of OnsetReaction(s) Facility (4 sources)atorvastatinDrug AllergyS[facility]ato.[facility] Other (1 source)HMG-CoA reductase inhibitorDrug allergySapato.ru Other (9 sources)atorvastatinDrug Vjujzbb70-21-8427[facility] (1 source)atorvastatinDrug Yjtrjbo13-70-6597DspnvgpppOhio [facility] Medications Current Medications MedicationDrug Class(es)DatesSig (Normalized)Sig (Original)acetaminophen 325 mg / oxyCODONE hydrochloride 5 mg oral tablet (1 source)Opioid AgonistStart: 64-05-4410aymf 1 tablet by mouth every four hours Percocet 5-325 MG 1 tablet as needed Orally every 4 hrs for 7 days Feb, ActiveamLODIPine 5 mg / benazepril hydrochloride 40 mg oral capsule (5 sources)Dihydropyridine Calcium Channel Cesar, Angiotensin Converting Enzyme InhibitorStart: 79-49-1421qpfm 1 capsule by mouth once dailyascorbic acid 500 mg oral capsule (20 sources)Vitamin CStart: 23-91-3794Kdmfe: 39-44-2639Mgeskdqw Acid (Vitamin C) Active MG PO November 07, 2023 12:00amStart: 54-00-3672Xiwbosm C Daily, Refills(s) 0, Prophylaxis Start Date: 09/03/21 Status: OrderedStart: 09-03-2021 Vitamin C Daily, Refills(s) 0 Start Date: 09/03/21 Status: OrderedStart: 11-17-2020 End: 63-93-1097yjuw 1 tablet by mouth once dailyAscorbic Acid (Vitamin C) (Vitamin C) 1,000 mg Tablet Discontinued 1000 MG PO Daily November 16, 2020 11:00pm May 18, 2023 10:57am supplementascorbic acid (Vitamin C) 500 mg/mL oral liquid (9 sources)Start: 18-87-4239fkzvkwpi acid (Vitamin C) 500 mg/mL oral liquid 11/07/2023 PwzjevP5-Ypihe-M12R54-Letwkq-Eiqkiujdyf (Neuriva Plus Brain Performance) 1.7 mg-400 mcg- 2.4 mcg capsule (13 sources)Start: 11-75-2937Vsfof: 84-20-8108K80626F6-Kmapb-X46-Slpmqi-Phkrymecwl (Neuriva Plus Brain Performance) 1.7 mg-400 mcg- 2.4 mcg capsule Active CAP PO November 06, 2023 11:00pm Complies with drug therapyStart: 86-63-5141Eltvi: 80-15-9886H03981J2-Ltifz-W25-Aiuojj-Tomwddsdot (Neuriva Plus Brain Performance) 1.7 mg-400 mcg- 2.4 mcg capsule Active CAP PO November 07, 2023 12:00am Complies with drug therapyStart: 87-25-7236Q21951B9-Wfpfu-O56-Rquiua-Qtvktwxnbj (Neuriva Plus Brain Performance) 1.7 mg-400 mcg- 2.4 mcg capsule Active CAP PO November 06, 2023 11:00pmStart: 12-01-9196X54751D5-Jrmbt-Y80-Ujipxl-Cfgcpugzvt (Neuriva Plus Brain Performance) 1.7 mg-400 mcg- 2.4 mcg capsule Active CAP PO November 07, 2023 12:00amCalcium Citrate (9 sources)Citracal +D3 Activecalcium citrate 1190 mg / cholecalciferol 0.005 mg oral tablet (16 sources)Vitamin DStart: 40-33-0042iecg 1 tablet by mouth once daily cefuroxime 500 mg oral tablet (9 sources)Cephalosporin AntibacterialStart: 74-32-7351zyxo 1 tablet by mouth twice dailycephalexin 500 mg oral capsule (1 source)Cephalosporin AntibacterialStart: 40-45-4289cvcc 1 capsule by mouth every eight hoursCephalexin 500 MG 1 capsule Orally TID for 2 days Feb, Activecholecalciferol 0.125 mg oral capsule (20 sources)Vitamin DStart: 61-71-5765uoau 1 capsule by mouth once dailyStart: 11-17-2020 End: 48-88-4052yafi 1 capsule by mouth once dailyCholecalciferol (Vitamin D3) (Vitamin D3) 25 mcg (1,000 unit) Capsule Discontinued 25 MCG PO Daily November 16, 2020 11:00pm May 18, 2023 10:57am supplementPrevagen Extra Strength 20 MG as directed Orally Activetake 1 tablet by mouth every twenty-four hours Vitamin D3 25 MCG (1000 UT) 1 tablet Orally Once a day ActiveCitracal Maximum + D (2 sources)Start: 47-15-5958Dludhysl Maximum + D Oral, BID, Refill(s) 0, Prophylaxis Start Date: 09/03/21 Status: OrderedStart: 89-75-4347Uiagghjd Maximum + D Oral, BID, Refill(s) 0 Start Date: 09/03/21 Status: OrderedEchinacea (9 sources)Echinacea ActiveEchinacea 650 MG capsule (9 sources)Echinacea 650 MG capsule Take by mouth ActiveEchinacea Preparation (18 sources)Start: 49-33-1247fenqggidy Refills(s) 0, Prophylaxis Start Date: 09/03/21 Status: OrderedStart: 29-31-4549irzwhuvnv Refills(s) 0 Start Date: 09/03/21 Status: OrderedStart: 73-59-7086atkp 1 capsule by mouth once dailyStart: 62-82-8672fjlg 1 capsule by mouth once dailyEchinacea 380 mg Capsule Active 760 MG PO Daily November 16, 2020 11:00pm supplement Complies with drug therapy Start: 74-96-2582pzoy 1 capsule by mouth once dailyStart: 82-54-8800bpub 1 capsule by mouth once dailyEchinacea 380 mg Capsule Active 760 MG PO Daily November 17, 2020 12:00am Complies with drug therapyStart: 52-31-0784juli 1 capsule by mouth once dailyEchinacea 380 mg Capsule Active 760 MG PO Daily November 17, 2020 12:00amStart: 72-41-9888hcia 1 capsule by mouth once daily Echinacea 380 mg Capsule Active 760 MG PO Daily November 16, 2020 11:00pmStart: 14-01-5670zbzu 760 mg by mouth once dailyEchinacea Active 760 MG PO Daily November 16, 2020 11:00pmStart: 78-54-9704qkfh 760 mg by mouth once dailyEchinacea Active 760 MG PO Daily November 17, 2020 12:00amezetimibe 10 mg oral tablet (19 sources)Dietary Cholesterol Absorption InhibitorStart: 86-47-8123azii 1 tablet by mouth once dailyStart: 07-12-2024 End: 77-00-7969wciv 1 tablet by mouth once dailyEzetimibe 10 mg tablet Discontinued 10 MG PO Daily 30 30 5 July 13, 2024 12:42pm September 04, 2024 9:27amglucosamine hydrochloride 1500 mg oral tablet (20 sources)Start: 78-43-7114zpjs 1 tablet by mouth once dailyipratropium bromide 0.042 mg/actuat metered dose nasal spray (20 sources)AnticholinergicStart: 02-01-2024 End: 17-48-2709dthy 2 spray(s) nasal route in the morning, then take 2 spray(s) nasal route in the evening, then take 2 spray(s) nasal route at bedtime ipratropium (Atrovent) 0.06 % nasal spray Indications: Chronic vasomotor rhinitis Administer 2 sprays into each nostril in the morning and 2 sprays in the evening and 2 sprays before bedtime. 45 mL 01/31/2025 Active Start: 02-01-2024 End: 54-43-6388mphu 1 spray(s) nasal route three times dailyIpratropium [place] 21 mcg (0.03 %) spray,non-aerosol Discontinued 2 SPRAY INTRANASAL Three times da german February 01, 2024 12:00am September 04, 2024 9:27am administer into each nostrilStart: 05-18-2023 End: 64-70-5741bqme 2 spray(s) nasal route three times daily before mealtime Ipratropium [place] 42 mcg (0.06 %) spray,non-aerosol Discontinued INTRANASAL May 18, 2023 12:00am November 07, 2023 11:06am Use 2 sprays in each nostril before meals nasally three times a dayStart: 76-88-1507czgp 2 spray(s) nasal route before mealtimeIpratropium [place] 0.06 % 2 sprays in each nostril Nasally before meals for 30 days Dec, Activemecobalamin (8 sources)Start: 10-43-2015Vqilgynowsp (Vitamin B12) 500 mcg tablet,chewable Active MCG PO November 07, 2023 12:00amStart: 31-26-4032Emlebojkwth (Vitamin B12) 500 mcg tablet,chewable Active MCG PO November 06, 2023 11:00pmStart: 55-46-3537Jbpljjtsxpp (Vitamin B12) Active MCG PO November 07, 2023 12:00amMilk thistle extract (20 sources)Start: 29-45-9360cjzx thistle 175 mg, Refill(s) 0, Prophylaxis Start Date: 09/03/21 Status: OrderedStart: 10-86-5640xtnf thistle Refill(s) 0 Start Date: 09/03/21 Status: OrderedStart: 05-81-3601rflz 1 tablet by mouth once daily Start: 36-31-8385dchd 1 tablet by mouth once dailyMilk Thistle 175 mg Tablet Active 175 MG PO Daily November 16, 2020 11:00pm supplement Complies with drug therapyStart: 20-95-9768goqz 1 tablet by mouth once dailyStart: 56-70-6816etvx 1 tablet by mouth once dailyMilk Thistle 175 mg Tablet Active 175 MG PO Daily November 17, 2020 12:00am Complies with drug therapyStart: 68-81-5698lvry 1 tablet by mouth once dailyMilk Thistle 175 mg Tablet Active 175 MG PO Daily November 17, 2020 12:00amStart: 88-12-0610cuam 1 tablet by mouth once dailyMilk Thistle 175 mg Tablet Active 175 MG PO Daily November 16, 2020 11:00pmStart: 44-57-4374ypfi 175 mg by mouth once dailyMilk Thistle Active 175 MG PO Daily November 16, 2020 11:00pmStart: 95-67-1380mqge 175 mg by mouth once dailyMilk Thistle Active 175 MG PO Daily November 17, 2020 12:00amtake 1 tablet by mouth once dailymilk thistle 175 MG tablet Take 175 mg by mouth Daily ActiveMilk Thistle 175 MG as directed Orally ActiveMSM 1000 MG (9 sources)MSM 1000 MG as directed Orally ActiveMultiple Vitamins-Minerals (ONE A DAY MEN 50 PLUS PO) (9 sources)Start: 81-54-1824gktz 1 tablet by mouth once dailyMultiple Vitamins- Minerals (ONE A DAY MEN 50 PLUS PO) 1 tablet 11/07/2023 Active Tcyaxymv-Zbi-Lynuv-Vit K-Lycop (3 sources)Start: 04-97-3785bxae 1 tablet by mouth once daily Jvnctanq-Fns-Yeixb-Vit K-Lycop Active 1 TAB PO Daily November 07, 2023 12:00am Hwpzxcmw-Nhs-Xjqcf-Vit K-Lycop 400-20-370 mcg tablet (10 sources)Start: 88-65-3995ewrd 1 tablet by mouth once dailyStart: 11-07-2023 take 1 tablet by mouth once gcxdbOilygrmc-Dtu-Ldgok-Vit K-Lycop 400-20-370 mcg tablet Active 1 TAB PO Daily November 06, 2023 11:00pm Complies with drug therapyStart: 95-45-7537judf 1 tablet by mouth once dailyStart: 66-16-2674robe 1 tablet by mouth once gynhhPkxpzdxw-Wsg-Ndfkh-Vit K-Lycop 400-20-370 mcg tablet Active 1 TAB PO Daily November 07, 2023 12:00am Complies with drug therapyStart: 79-98-2285qrbi 1 tablet by mouth once yhnwrIimtswku-Pmy-Fpbwi-Vit K-Lycop 400-20-370 mcg tablet Active 1 TAB PO Daily November 07, 2023 12:00amStart: 89-12-6365xzva 1 tablet by mouth once eoietTgualkyv-Tat-Ltsek-Vit K-Lycop 400-20-370 mcg tablet Active 1 TAB PO Daily November 06, 2023 11:00pmAleve (2 sources)Nonsteroidal Anti-inflammatory DrugStart: 70-13-5250hpuo 1 mg by mouth every twelve hoursAleve mg, Oral, q12hr, Refills(s) 0, Pain Start Date: 09/03/21 Status: OrderedStart: 29-73-2921oavy 1 mg by mouth every twelve hours Aleve mg, Oral, q12hr, Refills(s) 0 Start Date: 09/03/21 Status: Vibzpuw40 hr niacin 500 mg extended release oral tablet (20 sources)Nicotinic AcidStart: 85-27-9071pwfjmm (Niaspan) 500 MG ER tablet Daily 11/07/2023 ActiveStart: 41-00-4934rksl 1 tablet by mouth once dailyStart: 35-44-0293qdkmon Oral, Refills(s) 0 Start Date: 09/03/21 Status: OrderedStart: 11-17-2020 End: 77-69-5014pche 1 tablet by mouth once dailyNiacin 500 mg Tablet Discontinued 500 MG PO Daily November 16, 2020 11:00pm May 18, 2023 10:5 7amomeprazole 40 mg delayed release oral capsule (1 source)Proton Pump InhibitorStart: 79-31-4846leeo 1 capsule by mouth once dailyomeprazole 40 mg Cap-DR 40 mg = 1 cap(s), Oral, Daily, # 30 cap(s), Refills(s) 2, Pharmacy: [facility], 180, cm, 09/23/21 11:48:00 EDT, Height/Length Dosing, 78.3, kg, 09/23/21 11:48:00 EDT, Weight Dosing Start Date: 09/23/21 Status: OrderedOne Daily 50 Plus - (9 sources)One Daily 50 Plus - as directed Orally ActivePlenvu oral powder for reconstitution (1 source)Start: 21-36-4673nxqb 1 dose by mouth oncePlenvu oral powder for reconstitution See Instructions, 1 EA, Refill(s) 0, Per physicians instruction's prior to colonoscopy Mail order pharmacy to sent to patient's home in [place]., [facility], 180, cm, 09/03/21 13:11:00 EDT, Height/Length Dosing, 78.3, kg, 09/03/21 13:11:0... Start Date: 09/03/21 Status: Orderedpotassium 99 mg extended release oral tablet (9 sources)take 1 tablet by mouth once dailyPotassium 99 MG 1 tablet Orally Once a day ActivePotassium Acetate (2 sources)Start: 51-45-6351cclwnipqj acetate Refills(s) 0, Prophylaxis Start Date: 09/03/21 Status: OrderedStart: 62-05-1641scjalgttk acetate Refills(s) 0 Start Date: 09/03/21 Status: OrderedPotassium gluconate (20 sources)Start: 32-66-3208YVEWZSVVX GLUCONATE PO Daily 05/18/2023 Active Start: 11-17-2020 End: 01-60-9123uamk 1 tablet by mouth once dailyPrevagen (11 sources)Start: 83-34-4200thkt 1 tablet by mouth once dailyPrevagen Active 1 TAB PO Daily May 18, 2023 11:45amStart: 73-80-0381lkyj 1 tablet by mouth once dailyPrevagen Active 1 TAB PO Daily May 18, 2023 10:45amStart: 11-17-2020 End: 59-88-5914gwsi 1 tablet by mouth once dailyPrevagen Discontinued 1 TAB PO Daily November 17, 2020 12:00am May 18, 2023 11:59amStart: 11-17-2020 End: 08-98-4004vnrz 1 tablet by mouth once dailyPrevagen Discontinued 1 TAB PO Daily November 16, 2020 11:00pm May 18, 2023 10:59amStart: 14-30-4281ilcc 1 tablet by mouth once dailyPrevagen Active 1 TAB PO Daily November 17, 2020 12:00amPrevagen 1 tab (20 sources)Start: 81-71-2176gzsj 1 tablet by mouth once dailyStart: 05-18-2023 take 1 tablet by mouth once dailyPrevagen 1 tab Active 1 TAB PO Daily May 18, 2023 10:45am supplement Complies with drug therapyStart: 54-12-6875kaxo 1 tablet by mouth once dailyStart: 55-10-3696atds 1 tablet by mouth once daily Prevagen 1 tab Active 1 TAB PO Daily May 18, 2023 11:45am Complies with drug therapyStart: 70-01-0630kend 1 tablet by mouth once dailyPrevagen 1 tab Active 1 TAB PO Daily May 18, 2023 11:45amStart: 31-08-1396xtch 1 tablet by mouth once dailyPrevagen 1 tab Active 1 TAB PO Daily May 18, 2023 10:45amStart: 11-17-2020 End: 26-71-1806kona 1 tablet by mouth once dailyPrevagen 1 tab Discontinued 1 TAB PO Daily November 16, 2020 11:00pm May 18, 2023 10:59am supplement Start: 11-17-2020 End: 37-04-2825team 1 tablet by mouth once dailyPrevagen 1 tab Discontinued 1 TAB PO Daily November 17, 2020 12:00am May 18, 2023 11:59am supplement Start: 11-17-2020 End: 28-01-2792ceio 1 tablet by mouth once dailyPrevagen 1 tab Discontinued 1 TAB PO Daily November 17, 2020 12:00am May 18, 2023 11:59amStart: 11-17-2020 End: 67-83-8918ulai 1 tablet by mouth once dailyPrevagen 1 tab Discontinued 1 TAB PO Daily November 16, 2020 11:00pm May 18, 2023 10:59amsodium chloride 1000 mg oral tablet (18 sources)Start: 61-68-0191nxgnmr chloride 1 g Tab Refills(s) 0, Prophylaxis Start Date: 09/01/21 Status: OrderedStart: 11-26-2020 End: 96-16-5387Mhjfzt Chloride 1 gram Tablet Discontinued 1 GM PO As Directed as needed for Cramps November 25, 2020 11:00pm May 18, 2023 10:57amTumersaid (6 sources)Tumersaid ActiveTurmeric extract (20 sources)Start: 56-55-0578Mbtbfjfy 400 MG capsule Daily 05/18/2023 Active Start: 86-34-7138lvwe 1 capsule by mouth once dailyStart: 81-49-5184ynwz 1 capsule by mouth once dailyTurmeric 400 mg capsule Active 550 MG PO Daily May 18, 2023 10:46am supplement Complies withdrug therapyStart: 53-51-5516ejzv 1 capsule by mouth once dailyStart: 49-46-2566qyfe 1 capsule by mouth once dailyTurmeric 400 mg capsule Active 550 MG PO Daily May 18, 2023 11:46am Complies with drug therapyStart: 29-38-5070coav 1 capsule by mouth once dailyTurmeric 400 mg capsule Active 550 MG PO Daily May 18, 2023 11:46amStart: 22-02-8810tfps 1 capsule by mouth once dailyTurmeric 400 mg capsule Active 550 MG PO Daily May 18, 2023 10:46amStart: 30-68-4367kttj 550 mg by mouth once dailyTurmeric Active 550 MG PO Daily May 18, 2023 11:46amStart: 03-84-3606bazy 550 mg by mouth once dailyTurmeric Active 550 MG PO Daily May 18, 2023 10:46amStart: 53-53-0352hins 550 mg by mouth once dailyTurmeric 550 mg, Oral, Daily, Refill(s) 0, Prophylaxis Start Date: 09/03/21 Status: OrderedStart: 14-10-2716zwdj 1 mg by mouth once dailyTurmeric mg, Oral, Daily, Refill(s) 0 Start Date: 09/03/21 Status: OrderedStart: 11-17-2020 End: 42-84-2321jrjf 1 capsule by mouth once dailyTurmeric 400 mg Capsule Discontinued 550 MG PO Daily November 16, 2020 11:00pm May 18, 2023 1 0:59am supplementStart: 11-17-2020 End: 56-15-7599mymo 1 capsule by mouth once dailyTurmeric 400 mg Capsule Discontinued 550 MG PO Daily November 17, 2020 12:00am May 18, 2023 1 1:59am supplementStart: 11-17-2020 End: 85-89-8238rkwv 1 capsule by mouth once dailyTurmeric 400 mg Capsule Discontinued 550 MG PO Daily November 17, 2020 12:00am May 18, 2023 1 1:59amStart: 11-17-2020 End: 43-82-0750ujuv 1 capsule by mouth once dailyTurmeric 400 mg Capsule Discontinued 550 MG PO Daily November 16, 2020 11:00pm May 18, 2023 1 0:59amStart: 11-17-2020 End: 43-80-5326hntw 550 mg by mouth once dailyTurmeric Discontinued 550 MG PO Daily November 17, 2020 12:00am May 18, 2023 11:59amStart: 11-17-2020 End: 40-79-8046uccj 550 mg by mouth once dailyTurmeric Discontinued 550 MG PO Daily November 16, 2020 11:00pm May 18, 2023 10:59amStart: 15-98-2121jtln 550 mg by mouth once dailyTurmeric Active 550 MG PO Daily November 17, 2020 12:00amvitamin b12 0.5 mg chewable tablet (20 sources)Vitamin L16Entsa: 15-10-2312Rbdwh: 93-10-1136Tijpgsv B12 Refills(s) 0, Prophylaxis Start Date: 09/03/21 Status: OrderedStart: 22-88-7071Omtmouy B12 Refills(s) 0 Start Date: 09/03/21 Status: OrderedStart: 11-17-2020 End: 61-51-2989vgoq 1 tablet by mouth once dailyCyanocobalamin (Vitamin B-12) (Vitamin B-12) 1,000 mcg Tablet Discontinued 1000 MCG PO Daily 2020 11:00pm May 18, 2023 10:57am supplementCyanocobalamin (Vitamin B 12) 100 MCG lozenge Take by mouth ActiveVitamin B 12 Activevitamin b6 100 mg oral tablet (20 sources)Start: 51-17-0238chin 1 tablet by mouth two times weeklyStart: 06-49-5270Rpntxie B6 Daily, Refills(s) 0, Prophylaxis Start Date: 09/03/21 Status: OrderedStart: 95-62-8208Kzsuiuk B6 Daily, Refills(s) 0 Start Date: 09/03/21 Status: OrderedStart: 11-17-2020 End: 06-68-9834Jukjkknmtm (Vitamin B6) (Vitamin B-6) 500 mg Tablet Discontinued 1000 MG PO Daily November 16841666:00pm February 21st, 2024 10:57am supplement Vitamin B6 ActiveVitamin C 1000 MG (7 sources)take 1 tablet by mouth once dailyVitamin C 1000 MG 1 tablet Orally Once a day ActiveVitamin D3 1000 intl units oral tablet (2 sources)Start: 57-85-0536jkpg 1 tablet by mouth once dailyVitamin D3 1000 intl units oral tablet 25 mcg = 1 tab(s), Oral, Daily, # 30 tab(s), Refills(s) 0, Prophylaxis Start Date: 09/03/21 Status: OrderedStart: 92-78-4850lepx 1 tablet by mouth once dailyVitamin D3 [...] Inhibitor, Nonsteroidal Anti-inflammatory Drug Start: 11-17-2020 End: 48-65-1703Wjlwcaz 81 mg Capsule Discontinued 81 MG PO Daily November 16, 2020 11:00pm November 07, 2023 11:06am Instructed to stop 7 days prior to surgerytake 1 tablet by mouth once dailyAspirin 81 81 MG 1 tablet Orally Once a day Activeazithromycin 250 mg oral tablet (10 sources)Macrolide AntimicrobialStart: 05-15-2024 End: 95-75-1504Dvqljfncwqyp 250 mg tablet Discontinued 250 MG PO .COMPLEX 6 5 0 May 15, 2024 12:00am May 15, 2024 9:23am 2 tabs on first day followed by 1 tab on days 2-5etodolac 500 mg oral tablet (20 sources)Nonsteroidal Anti-inflammatory DrugStart: 05-19-2023 End: 57-56-0157zzvb 1 tablet by mouth twice dailyEtodolac 500 mg tablet Discontinued 500 MG PO Twice daily 30 15 0 May 19, 2023 12:00am August 05, 2023 8:04amLidocaine (1 source)Antiarrhythmic, Amide Local AnestheticStart: 81-05-1872Ghulhmhqc Aug, 20 mglisinopril 40 mg oral tablet (20 sources)Angiotensin Converting Enzyme InhibitorStart: 11-17-2020 End: 37-69-4069sxcn 1 tablet by mouth once dailyLisinopril 40 mg tablet Discontinued 40 MG PO Daily May 18, 2023 10:42am March 02, 2024 1 2:37pm HTNmeloxicam 7.5 mg oral tablet (20 sources)Nonsteroidal Anti-inflammatory DrugStart: 05-18-2023 End: 42-67-5039ckum 1 tablet by mouth once daily as needed for painMeloxicam 7.5 mg tablet Discontinued 7.5 MG PO Daily as needed for Pain May 18, 2023 10:43amFebruary 2023 11:21amStart: 11-17-2020 End: 53-49-3861yhji 1 tablet by mouth twice daily for painMeloxicam 7.5 mg tablet Discontinued 7.5 MG PO Twice daily as needed for Pain November 16, 2020 11:00pm May 18, 2023 10:59am Instructed to stop 7 days before surgerytake 1 tablet by mouth every twenty-four hoursMeloxicam 7.5 MG 1 tablet Orally Once a day Activemethylsulfonylmethane 1000 mg oral tablet (16 sources)Start: 11-17-2020 End: 16-99-9330gahq 1 tablet by mouth once dailyMethylsulfonylmethane (Msm) 1,000 mg Tablet Discontinued 1000 MG PO Daily November 16, 2020 11:00pmAugust 2023 11:07am [facility] (One A Day) Tablet (16 sources)Start: 11-17-2020 End: 42-43-8631sxpp 1 tablet by mouth once dailyMultivitamin (One A Day) Tablet Discontinued 1 TAB PO Daily November 17, 2020 12:00am May 18, 2023 11:57amStart: 11-17-2020 End: 33-95-6634uqfx 1 tablet by mouth once dailyMultivitamin (One A Day) Tablet Discontinued 1 TAB PO Daily November 16, 2020 11:00pm May 18, 2023 10:57amStart: 61-35-0932yhza 1 tablet by mouth once dailyMultivitamin (One A Day) Tablet Active 1 TAB PO Daily November 17, 2020 12:00amtriamcinolone acetonide 40 mg/ml injectable suspension (7 sources)CorticosteroidStart: 10-00-2193Kysdqwx-40 Aug, 40 mg Problems Active Problems Problem ClassificationProblemDateDocumented DateEpisodic/ChronicAcquired foot deformities (5 sources)Toe joint rigid; 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, right foot]06-27-2024 ChronicAcquired foot deformities (2 sources)Acquired deformity of toe of right foot; Translations: [Acquired deformities of toe(s), unspecified, right foot]61-73-1353CmupbebiVopox bronchitis (2 sources)Acute bronchitis due to other specified organisms; Translations: [Acute bronchitis]62-72-3429IvvhjiygEjvntvu disorders (8 sources)Panic attack; Translations: [Panic disorder [episodic paroxysmal anxiety]]Onset: 03-32-8255DvpokwrJnkmxww obstructive pulmonary disease and bronchiectasis (20 sources)Mucopurulent chronic bronchitis; Translations: [Mucopurulent chronic bronchitis]ChronicDeficiency and other anemia (20 sources)Anemia; Translations: [Anemia, unspecified]Onset: 86-67-5976Acbggyvx Disorders of lipid metabolism (20 sources)Familial hypercholesterolemia; Translations: [Familial hypercholesterolemia]Onset: 181452-57-5094CmsuuwvCezlzklldk disorders (20 sources)Basilio's esophagus; Translations: [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]Onset: 13-73-1999YhzugzvDtnamkgws hypertension (20 sources)Essential hypertension; Translations: [Essential (primary) hypertension]Onset: 790741-03-3833FxmernrTwmhcuodeliwr symptoms and ill- defined conditions (4 sources)Nocturia; Translations: [Nocturia]EpisodicHeadache; including migraine (4 sources)Headache; including migraine; Translations: [HEADACHE UNSPECIFIED] Onset: 81-78-2173Cynjqigicrn of prostate (20 sources)Nocturia due to benign prostatic hypertrophy; Translations: [Benign prostatic hyperplasia with lower urinary tract symptoms]Onset: 02-01-2024 67-18-6650PqimwpqLwwjvdy (3 sources)Pain in toe; Translations: [Tinea unguium]87-73-2194Grxyihcu Osteoarthritis (20 sources)Osteoarthritis of acromioclavicular joint; Translations: [Primary osteoarthritis, unspecified shoulder]Onset: 01-29-2021 Resolved: 50-63-0882KekhtkkFbxat aftercare (1 source)Other [place] [facility] ([facility]) drug therapyEpisodicOther and unspecified benign neoplasm (3 sources)Adenomatous polyp of colon ; Translations: [Benign neoplasm of descending colon]EpisodicOther and unspecified benign neoplasm (20 sources)Tubular adenoma of colon; Translations: [Benign neoplasm of colon, unspecified]99-79-1052VbnkfgstJkpuo and unspecified benign neoplasm (4 sources)Benign neoplasm of colon, unspecified; Translations: [Benign neoplasm of colon]EpisodicOther connective tissue disease (20 sources)Supraspinatus tear; Translations: [Unspecified rotator cuff tear or rupture of right shoulder, not specified as traumatic]36-06-7143PihhpnszNlbbx connective tissue disease (7 sources)Unspecified rotator cuff tear or rupture of right shoulder, not specified as traumatic; Translations: [Supraspinatus (muscle) (tendon) sprain] Onset: 01-29-2021 Resolved: 68-48-8716BqjmrfdjLxkqh connective tissue disease (3 sources)Ganglion cyst; Translations: [Ganglion, unspecified site]Episodic Other connective tissue disease (20 sources)Tendonitis of right shoulder; Translations: [Other enthesopathies, not elsewhere classified]12-62-1563XehlcwxaOhmyp connective tissue disease (10 sources)Inflammation of rotator cuff tendon; Translations: [Other shoulder lesions, unspecified shoulder]86-19-2415YpofmcbeIcaef connective tissue disease (5 sources)Other shoulder lesions, unspecified shoulder; Translations: [Disorders of bursae and tendons in shoulder region, unspecified]03-07-2024 EpisodicOther connective tissue disease (5 sources)Capsulitis of metatarsophalangeal joint of right foot; Translations: [Other enthesopathy of right foot and ankle]62-88-3676FbawcvvrUdnrz endocrine disorders (4 sources)Syndrome of inappropriate vasopressin secretion; Translations: [Syndrome of inappropriate secretionof antidiuretic hormone]ChronicOther endocrine disorders (1 source)Syndrome of inappropriate secretion of antidiuretic hormoneChronic Other lower respiratory disease (20 sources)Multiple nodules of lung; Translations: [Other nonspecific abnormal finding of lung field]44-91-3761YkyosmqpSlequkm on above:Serial LDCT completed:No suspicious nodules: 12/2021, 12/2022, 01/2024Other lower respiratory disease (4 sources)Other nonspecific abnormal finding of lung field; Translations: [Other nonspecific abnormal findingof lung field]EpisodicOther nervous system disorders (3 sources)Chronic pain; Translations: [Other chronic pain]ChronicOther non- traumatic joint disorders (20 sources)Pain in right shoulder; Translations: [Right shoulder pain]Onset: 01-29-2021 Resolved: 12-12-8058HypzckblVagto non-traumatic joint disorders (1 source)Shoulder pain; Translations: [Pain in right shoulder]03-05-2021 EpisodicOther screening for suspected conditions (not mental disorders or infectious disease) (12 sources)Encounter for screening for malignant neoplasm of prostate; Translations: [Screening for malignant neoplasms of prostate]EpisodicComment on above:PSA: 1.12 - 06/2024PSA: 0.81 - 07/2018, 0.98 - 06/2023, 1.12 - 06/2024Other upper respiratory disease (20 sources)Vasomotor rhinitis; Translations: [Vasomotor rhinitis]Onset: [id number] upper respiratory disease (2 sources)Vasomotor rhinitis; Translations: [Allergic rhinitis, cause unspecified]ChronicOther upper respiratory disease (11 sources)Hypertrophy of nasal turbinates; Translations: [Hypertrophy of nasal turbinates]06-89-5744IvgwgphoXmwjo upper respiratory disease (1 source)Hypertrophy of nasal turbinates; Translations: [Hypertrophy of nasal turbinates]88-34-7319WgqyozadZhlvkrnr codes; unclassified (3 sources)Other specified postprocedural statesOnset: 04-09-2021 Resolved: 65-98-8815AkgyuhvoQdcpvpxi codes; unclassified (3 sources)Memory impairment; Translations: [Other amnesia]EpisodicSubstance- related disorders (20 sources)Smoker; Translations: [Nicotine dependence]Onset: 01-12-2022 75-53-3770ZpmogbwFjynyek (16 sources)Near syncope; Translations: [Syncope and collapse]28-19-2108Cliohbfe Comment on above:Problem List clean-up per request of Phys. EHR Cmte Past or Other Problems Problem ClassificationProblemDateDocumented DateEpisodic/ChronicFluid and electrolyte disorders (6 sources)Hyponatremia; Translations: [Hypo-osmolality and hyponatremia]Onset: [id number] and fatigue (9 sources)Fatigue; Translations: [Other fatigue]Onset: 07-04-9910TrduyjmeYedsq aftercare (1 source)skilled nursing (current) use of aspirin; Translations: [[facility] CURRENT USE OF ASPIRIN]Onset: 60-54-7915VuhfzjmbFstkk connective tissue disease (5 sources)Other enthesopathies, not elsewhere classified; Translations: [Disorders of bursae and tendons in shoulder region, unspecified]Onset: 95-08-9542LzqcqqrwRghtw injuries and conditions due to external causes (1 source)Other adverse effects, not elsewhere classified, initial encounter; Translations: [OTH ADVERSE EFFECTS NEC INITIAL ENC]Onset: 13-47-9392Umdspqkc Residual codes; unclassified (1 source)Other amnesia; Translations: [OTHER AMNESIA]Onset: 04-75-6042Hbovgguj Residual codes; unclassified (1 source)Altered mental status, unspecified; Translations: [ALTERED MENTAL STATUS UNSPECIFIED]Onset: 22-92-0461AiaoepycPeiuxqtj codes; unclassified (1 source)Hallucinations, unspecified; Translations: [HALLUCINATIONS UNSPECIFIED]Onset: 17-87-4403Hzdusogj Results Test NameValueInterpretationReference RangeFacilityCT shoulder RT wo conon 72-66-6000FZ shoulder RT [place] [facility] [place] [address] CT Scan Report Signed Patient: Dai العلي MR#: [id number] : 1945 Acct:[id number] Age/Sex: 79 / M ADM Date: 01/31/25 Loc: CT Room: Type: [facility] Attending Dr: Hawa Starkey MD Copies to: [...] Ramires M.D. 01/31/2025 5:52 PM Dictation Location: [place] [address] Transcribed By: [facility] 01/31/251751 Dictated By: Doc Ramires II, MD 01/31/251747 Signed By: 01/31/251751[facility] Physician GroupBasophils Auto (Bld) [#/Vol] Ordered By: Shay Roca on 85-43-5607Byvnhwdev (Bld) [#/Vol]0.0 10 3/uL0.0-0.1 [facility] HospitalBasophils/100 WBC Auto (Bld)Ordered By: Shay Roca on 16-76-5699Ghpcydspr/100 WBC (Bld)0.8 %0.2-2.0[facility] HospitalCholesterol in LDL Calc [Mass/Vol]Ordered By: Shay Roca on 42-55-4961Odtqpepppsm in LDL [Mass/Vol]178.0 mg/dLOhio Valley Surgical HospitalComment on above:<100 mg/dl ESSBECN610-451 mg/dl NEAR OR ABOVE LICDOCZ344- 159 mg/dl BORDERLINE UQJO140-708 mg/dl HIGH>190 mg/dl VERY HIGHCholesterol in VLDL Calc [Mass/Vol]Ordered By: Shay Roca on 37-32-9509Nfehxrlsqmz in VLDL [Mass/Vol]18.0 mg/dLOhio Valley Surgical HospitalEosinophils/100 WBC Auto (Bld)Ordered By: Shay Roca on 09-46-2370Nzepxufhgpf/100 WBC (Bld)3.1 % 0.9-7.0[facility] HospitalErythrocyte distribution width Auto (RBC) [Ratio]Ordered By: Shay Roca on 17-80-8029Gqvoyaicbsn distribution width (RBC) [Ratio]12.3 %11.0-15.0[facility] HospitalGlobulin Calc (S) [Mass/Vol]Ordered By: Shay Roca on 16-18-5701Rwfaxvsn (S) [Mass/Vol]3.5 g/dLOhio Valley Surgical HospitalGlomerular filtration rate (GFR) estimation in non- AmericanOrdered By: Shay Roca on 10-29-2024 GFR/1.73 sq M.predicted among non-blacks MDRD (S/P/Bld) [Vol rate/Area] mL/min/{1.73_m2}>=60 mL/min/1.73m 2FWright-Patterson Medical CenterHematocrit Auto (Bld) [Volume fraction]Ordered By: Shay Roca on 97-82-4731Rxnsrmdomy (Bld) [Volume fraction]38.3 %Low42.0-54.0[facility] Hemoglobin [Mass/volume] in BloodOrdered By: Shay Roca on 10-29-2024 Hemoglobin (Bld) [Mass/Vol]13.0 g/dLLow14.0-18.0[facility] HospitalLaboratory - Chemistry and Chemistry - challengeOrdered By: Shay Roca on 99-04-5615Nhaszvk [Mass/Vol]4.1 g/dL3.4-5.0[facility] ALP [Catalytic activity/Vol]90 U/E97-290QhmmtxjvsOhio Valley Surgical HospitalALT [Catalytic activity/Vol]53 U/Y50-44RdopcvuvvOhio Valley Surgical HospitalAST [Catalytic activity/Vol]27 U/Y48-70OazgcsegsOhio Valley Surgical HospitalBilirubin [Mass/Vol]0.5 mg/dL0.2-1.0[facility] HospitalCalcium [Mass/Vol]9.2 mg/dL8.5-10.1FWright-Patterson Medical CenterChloride [Moles/Vol]98 mmol/L 98-107[facility] HospitalCholesterol [Mass/Vol]259 mg/dLHigh<=200 [facility] HospitalCholesterol in HDL [Mass/Vol]63 mg/uSOess85-47 [facility] HospitalComment on above:> or =60 mg/dl - LOW CARDIOVASCULAR RISK<40 mg/dl - HIGH CARDIOVASCULAR RISKCO2 [Moles/Vol]28.8 mmol/L21.0-32.0[facility] HospitalCreatinine [Mass/Vol]0.78 mg/dL 0.70-1.30[facility] HospitalGFR/1.73 sq M.predicted MDRD (S/P/Bld) [Vol rate/Area]mL/min/{1.73_m2}>=60 mL/min/1.73m 2FWright-Patterson Medical CenterGlucose [Mass/Vol]98 mg/dS02-812HvhmayzgdOhio Valley Surgical HospitalPotassium [Moles/Vol]4.0 mmol/L3.5-5.1FWright-Patterson Medical CenterProtein [Mass/Vol] 7.6 g/dL6.4-8.2FMarietta Memorial Hospitalodium [Moles/Vol]134 mmol/LLow 136-145[facility] HospitalTriglyceride [Mass/Vol]90 mg/dL<=150 [facility] HospitalUrea nitrogen [Mass/Vol]17.0 mg/dL7.0-18.0 [facility] HospitalUrea nitrogen/Creatinine [Mass ratio]21.8 mg/mg [facility] HospitalLaboratory - Hematology and Cell countsOrdered By: Shay Roca on 84-50-2686Eridhssr granulocytes/100 WBC (Bld)0.2 %0.0-0.5 [facility] HospitalLeukocytes [#/volume] corrected for nucleated erythrocytes in Blood by Automated counOrdered By: Shay Roca on 10-29-2024 WBC corrected for nucl RBC Auto (Bld) [#/Vol]5.1 10 3/uL4.0-11.0[facility] HospitalLymphocytes Auto (Bld) [#/Vol]Ordered By: Shay Roca on 90-85-2413Lnrvqkoakmq (Bld) [#/Vol]1.6 10 3/uL1.2-3.8[facility] HospitalLymphocytes/100 WBC Auto (Bld)Ordered By: Shay Roca on 06-80-0653Nupvwxxcsck/100 WBC (Bld)31.7 %20.5-60.0[facility] HospitalMCH Auto (RBC) [Entitic mass]Ordered By: Shay Roca on 24-71-3871IVC (RBC) [Entitic mass]32.2 pg25.9-34.0[facility] HospitalMCHC Auto (RBC) [Mass/Vol]Ordered By: Shay Roca on 81-64-7019XNIW (RBC) [Mass/Vol]33.9 g/dL29.9-35.2FWright-Patterson Medical CenterMCV Auto (RBC) [Entitic vol] Ordered By: Shay Roca on 12-00-2695TBJ (RBC) [Entitic vol]94.8 fLHigh 80.0-94.0[facility] HospitalMonocytes Auto (Bld) [#/Vol]Ordered By: Shay Roca on 68-86-4717Omicgpusx (Bld) [#/Vol]0.9 10 3/uLHigh0.3-0.8 [facility] HospitalMonocytes/100 WBC Auto (Bld)Ordered By: Shay Roca on 41-83-9206Awnyamtzl/100 WBC (Bld)16.6 %High1.7-12.0[facility] HospitalNeutrophils Auto (Bld) [#/Vol]Ordered By: Shay Roca on 37-14-9288Eohatudptpl (Bld) [#/Vol]2.4 10 3/uL1.4-6.5FWright-Patterson Medical CenterNeutrophils/100 WBC Auto (Bld)Ordered By: Shay Roca on 79-10-4153Jzuislwanxe/100 WBC (Bld)47.6 %43.0-75.0[facility] HospitalNo Panel InformationOrdered By: Shay Roca on 80-66-3591Uzpuhuowcvn # (Auto)0.2 10 3/uL0.0-0.7FWright-Patterson Medical CenterImmature Granulocyte # (Auto)0.01 10 3/uL0.00-0.03[facility] HospitalPlatelet mean volume Auto (Bld) [Entitic vol]Ordered By: Shay Roca on 36-05-4504Sdiktjbh mean volume (Bld) [Entitic vol]9.2 fLLow9.5-13.5FWright-Patterson Medical Center Platelets Auto (Bld) [#/Vol]Ordered By: Shay Roca on 43-70-1154Ebxqntjkj (Bld) [#/Vol]306 10 3/tU252-906OamapscoqOhio Valley Surgical HospitalRBC Auto (Bld) [#/Vol]Ordered By: Shay Roca on 83-59-3125SWP (Bld) [#/Vol]4.04 10 6/uLLow 4.70-6.10[facility]edo Hospitalerum or plasma albumin/globulin mass ratioOrdered By: Shay Roca on 85-87-1754Rtskcdd/Globulin [Mass ratio]1.2 {ratio}[facility]edo Hospitalerum or plasma anion gap determination Ordered By: Shay Roca on 54-45-7436Xlchk gap [Moles/Vol]11.2 mmol/LFMarietta Memorial Hospitalerum or plasma total cholesterol/high density lipoprotein (HDL) cholesterol mass ratOrdered By: Shay Roca on 10-29-2024 Cholesterol.total/Cholesterol in HDL [Mass ratio]4.1 {ratio}[facility] HospitalComment on above:3.3 - 4.4 LOW RISK4.4 - 7.1 AVERAGE RISK7.1 - 11.0 MODERATE RISK>11.0 HIGH RISKX-ray reportOrdered By: Bal Cuenca on 36-28-8166Ekssl reportMARIETTA O[facility]OPATHIC [facility] [address] [place] [address] XRay Report Signed Patient: Dai العلي MR#: [id number] : 1945 Acct:[id number] Age/Sex: 79 / M ADM Date: 5 Loc: [facility] [place]: Type: [facility] Attending Dr: Hawa Starkey MD Copies to: [...] Jr., D.ONaeem 09/04/2024 12:31 PM Dictation Location: [place] [address] Transcribed By: [facility] 09/04/24 1231 Dictated By: Bal Cuenca Jr, DO 09/04/24 1230 Signed By: 09/04/24 1231 [facility] HospitalXR shoulder RT min 2V*on 75-01-8652LU shoulder RT min 2V*[facility] [address] [place] [address] XRay Report Signed Patient: Dai العلي MR#: [id number] : 1945 Acct:[id number] Age/Sex: 79 / M ADM Date: 09/04/24 Loc: [facility] [place]: Type: [facility] Attending Dr: Hawa Starkey MD Copies to: [...] Jr., ThaoONaeem 09/04/2024 12:31 PM Dictation Location: [place] [address] Transcribed By: [facility] 09/04/24 1231 Dictated By: Bal Cuenca Jr, DO 09/04/24 1230 Signed By: 09/04/24 1231NoAt[facility] Health Physician XcxztH0L with Estimated Average Gluon 09-65-4632Iqnjkuv [Mass/Vol]105 mg/dLNoAtrium Health Physician [facility]. Stennis Memorial HospitalComment on above:Result Comment: PERFORMED BY: [address] [address] PATHOLOGIST JUDGE CLERK FRACISCO ESPINOZA M.D.Performed By: #### A1C WTH eA, CHC CBC, LIPID, EMP PSA, CMP #### [facility] [address] [place] [address] SGHRsB3k (Bld) [Mass fraction]5.3 %Normal4.3-5.6[facility] Physician GroupComment on above:Result Comment: Increased risk for diabetes: 5.7 - 6.4 diabetes: >6.4 glycemic control for adults with diabetes: <7.0Performed By: #### A1C WTH eA, CHC CBC, LIPID, EMP PSA, CMP #### [facility] [address] StreetAlanine aminotransferase [Enzymatic activity/volume] in Serum or PlasmaOrdered By: Phil Pierre on 41-59-1704DEM [Catalytic activity/Vol] Alanine aminotransferase [Enzymatic activity/volume] in Serum or Plasma7-52 [facility] HospitalAlbumin [Mass/volume] in Serum or Plasma by Bromocresol green (BCG) dye binding methoOrdered By: Phil Pierre on 07-03-2024 Albumin BCG dye [Mass/Vol]Albumin [Mass/volume] in Serum or Plasma by Bromocresol green (BCG) dye binding metho3.5-5.7FWright-Patterson Medical CenterAlkaline phosphatase [Enzymatic activity/volume] in Serum or PlasmaOrdered By: Phil Pierre on 31-90-0066OFG [Catalytic activity/Vol]Alkaline phosphatase [Enzymatic activity/volume] in Serum or Bxzppo77-846NluizjqfeOhio Valley Surgical HospitalAspartate aminotransferase [Enzymatic activity/volume] in Serum or Plasma Ordered By: Phil Pierre on 19-42-5229GQF [Catalytic activity/Vol]Aspartate aminotransferase [Enzymatic activity/volume] in Serum or Eznezq01-67DoqagwwlqOhio Valley Surgical HospitalBasophils Auto (Bld) [#/Vol]Ordered By: Phil Pierre on 84-49-0501Bdzrmwupe (Bld) [#/Vol]Automated basophil count0.0-0.2FWright-Patterson Medical CenterBasophils/100 WBC Auto (Bld)Ordered By: Phil Pierre on 90-56-0188Ketzzbnja/100 WBC (Bld)Automated basophil %.[facility] HospitalBilirubin.total [Mass/volume] in Serum or PlasmaOrdered By: Phil Pierre on 15-77-7763Vrkoropdb [Mass/Vol]Bilirubin.total [Mass/volume] in Serum or Plasma 0.3-1.0[facility] HospitalBlood estimated average glucose determination by estimation from glycated hemoglobinOrdered By: Phil Pierre on 77-54-5143Qzvxyac glucose Estimated from glycated hemoglobin (Bld) [Mass/Vol] Glucose mean value [Mass/volume] in Blood Estimated from glycated hemoglobin [facility] HospitalCalcium [Mass/volume] in Serum or PlasmaOrdered By: Phil Pierre on 26-66-6049Kkynzkl [Mass/Vol]Calcium [Mass/volume] in Serum or PlasmaHigh8.6-10.3FWright-Patterson Medical CenterCarbon dioxide, total [Moles/volume] in Serum or PlasmaOrdered By: Phil Pierre on 43-23-1282ZN5 [Moles/Vol]Carbon dioxide, total [Moles/volume] in Serum or Qpcbmc59.0-31.0 [facility] HospitalChloride [Moles/volume] in Serum or Plasma Ordered By: Phil Pierre on 17-13-7149Xvyvpiqr [Moles/Vol]Chloride [Moles/volume] in Serum or UzwmfyHwr41-882IpkjjqwadOhio Valley Surgical HospitalCholesterol [Mass/volume] in Serum or PlasmaOrdered By: Phil Pierre on 61-79-4367Pthaqaaiusw [Mass/Vol]Cholesterol [Mass/volume] in Serum or HthtknEtsg590-638WhetziacwOhio Valley Surgical HospitalComment on above:Chol less than 200 mg/dl low riskChol 201-239 mg/dl borderline riskChol 240 mg/dl and greater high riskCholesterol in HDL [Mass/volume] in Serum or PlasmaOrdered By: Phil Pierre on 07-03-2024 Cholesterol in HDL [Mass/Vol]Serum or plasma high density lipoprotein (HDL) cholesterol bjeqrsssizs57-04AjzypxbtvOhio Valley Surgical HospitalComment on above: HDL CHOL ATP-III CLASSIFICATION Cardiovascular RiskHDL > or equal to 60 mg/dL LOWHDL < 40 mg/dL HIGHCholesterol in LDL Calc [Mass/Vol]Ordered By: Phil Pierre on 55-78-5199Owmafngqykv in LDL [Mass/Vol]Cholesterol in LDL [Mass/volume] in Serum or Plasma by calculationHigh0-100[facility] HospitalComment on above:LDL ATP III CLASSIFICATIONLDL less than 100 mg/dL OptimalLDL 100-129 mg/dL Near or above esslvjgAMI709-871 mg/dL Borderline highLDL 160-189 mg/dL HighLDL greater than 189 mg/dL Very highCholesterol in VLDL Calc [Mass/Vol] Ordered By: Phil Pierre on 22-30-3594Qzihhcaottv in VLDL [Mass/Vol]Cholesterol in VLDL [Mass/volume] in Serum or Plasma by calculationOhio Valley Surgical HospitalComplete Blood Count no reflexon 37-74-3674Gjnudlovx (Bld) [#/Vol]0.1 10*3/uLNormal0.0-0.2The [facility] Physician GroupComment on above:Result Comment: PERFORMED BY: [place] [address] PATHOLOGIST JUDGE CLERK FRACISCO ESPINOZA M.D.Performed By: #### A1C WTH eA, CHC CBC, LIPID, EMP PSA, CMP #### [facility] [address] [place] [address] USABasophils/100 WBC (Bld)1.2 %Normal.The [facility] Physician GroupComment on above:Performed By: #### A1C WTH eA, CHC CBC, LIPID, EMP PSA, CMP #### [place] [address] USAEosinophils (Bld) [#/Vol]0.2 10*3/uLNormal0.0-0.45The [facility] Physician GroupComment on above:Performed By: #### A1C WTH eA, CHC CBC, LIPID, EMP PSA, CMP #### [place] [id number] USAEosinophils/100 WBC (Bld)3.7 %Normal.The [facility] Physician GroupComment on above:Performed By: #### A1C WTH eA, CHC CBC, LIPID, EMP PSA, CMP #### [place] [address] USAErythrocyte distribution width (RBC) [Ratio]12.5 %Normal 12.0-14.8The [facility] Physician GroupComment on above:Performed By: #### A1C WTH eA, CHC CBC, LIPID, EMP PSA, CMP #### [address] [place] [address] USAHematocrit (Bld) [Volume fraction]41.7 %Lenjtg29.8-50.0The [facility] Physician GroupComment on above:Performed By: #### A1C WTH eA, CHC CBC, LIPID, EMP PSA, CMP #### [place] [address] USAHemoglobin (Bld) [Mass/Vol]14.2 g/hWYapdzs76.0-17.0The [facility] Physician GroupComment on above:Performed By: #### A1C WTH eA, CHC CBC, LIPID, EMP PSA, CMP #### [place] [address] USALymphocytes (Bld) [#/Vol]1.8 10*3/uLNormal1.00-4.8The [facility] Physician GroupComment on above:Performed By: #### A1C WTH eA, CHC CBC, LIPID, EMP PSA, CMP #### [place] [address] USALymphocytes/100 WBC (Bld)31.5 %Normal.The [facility] Physician GroupComment on above:Performed By: #### A1C WTH eA, CHC CBC, LIPID, EMP PSA, CMP #### [place] [address] USAH (RBC) [Entitic mass]33.1 fvZwnuqh09.5-35.2The [facility] Physician GroupComment on above:Performed By: #### A1C WTH eA, CHC CBC, LIPID, EMP PSA, CMP #### [place] [address] USAV (RBC) [Entitic vol]97.1 xSMuxwdj95.5-101The [facility] Physician GroupComment on above:Performed By: #### A1C WTH eA, CHC CBC, LIPID, EMP PSA, CMP #### [place] [address] USAMean Corpuscular HGB Conc34.1 g/xWZjjren99.5-35.6The [facility] Physician GroupComment on above:Performed By: #### A1C WTH eA, CHC CBC, LIPID, EMP PSA, CMP #### [facility] [address] [place] [address] USAMonocytes (Bld) [#/Vol]1.0 10*3/uLHigh0.0-0.8The [facility] Physician GroupComment on above:Performed By: #### A1C WTH eA, CHC CBC, LIPID, EMP PSA, CMP #### [facility] [address] [place] [address] USAMonocytes/100 WBC (Bld)17.4 %Normal.The [facility] Physician GroupComment on above:Performed By: #### A1C WTH eA, CHC CBC, LIPID, EMP PSA, CMP #### [facility] [address] [place] [address] USANeutrophils (Bld) [#/Vol]2.7 10*3/uLNormal1.8-7.7The [facility] Physician GroupComment on above:Performed By: #### A1C WTH eA, CHC CBC, LIPID, EMP PSA, CMP #### [facility] [address] [place] [address] USANeutrophils/100 WBC (Bld)46.2 %Normal.The [facility] Physician GroupComment on above:Performed By: #### A1C WTH eA, CHC CBC, LIPID, EMP PSA, CMP #### [facility] [address] [place] [address] USANRBC%0.2 /100{WBC}Normal0-0.5The [facility] Comment on above:Performed By: #### A1C WTH eA, CHC CBC, LIPID, EMP PSA, CMP #### [facility] [address] [place] [address] USAPlatelet mean volume (Bld) [Entitic vol]8.0 fLNormal 6.6-10.1The [facility] Physician GroupComment on above:Performed By: #### A1C WTH eA, CHC CBC, LIPID, EMP PSA, CMP #### [facility] [address] [place] [address] USAPlatelets (Bld) [#/Vol]310 10*3/tYGjrtgf553-248Aog [facility] Physician GroupComment on above:Performed By: #### A1C WTH eA, CHC CBC, LIPID, EMP PSA, CMP #### [facility] [address] [place] [address] USARBC (Bld) [#/Vol]4.29 10*6/uLNormal3.90-5.60The [facility] Physician GroupComment on above:Performed By: #### A1C WTH eA, CHC CBC, LIPID, EMP PSA, CMP #### [facility] [address] [place] [address] USAWBC (Bld) [#/Vol]5.8 10*3/uLNormal4.1-10.5The [facility] Physician GroupComment on above:Performed By: #### A1C WTH eA, CHC CBC, LIPID, EMP PSA, CMP #### [place] [address] USAComprehensive Metabolic Panelon 74-28-8048Updtltb [Mass/Vol]4.8 g/dLNormal3.5-5.7The [facility] Physician GroupComment on above: Performed By: #### A1C WTH eA, CHC CBC, LIPID, EMP PSA, CMP #### [place] [address] USAAlbumin/Globulin [Mass ratio]1.7 {ratio}NormalThe [facility] Physician GroupComment on above:Performed By: #### A1C WTH eA, CHC CBC, LIPID, EMP PSA, CMP #### [place] [address] USAALP [Catalytic activity/Vol]78 U/PCmmcfc73-300Hbz [facility] Physician GroupComment on above:Performed By: #### A1C WTH eA, CHC CBC, LIPID, EMP PSA, CMP #### [place] [address] USAALT [Catalytic activity/Vol]28 U/LNormal7-52The [facility] Physician GroupComment on above:Performed By: #### A1C WTH eA, CHC CBC, LIPID, EMP PSA, CMP #### [facility] [address] [place] [address] USAAnion gap [Moles/Vol]13.5 mmol/LNormal6.0-15.0The [facility] Physician GroupComment on above:Performed By: #### A1C WTH eA, CHC CBC, LIPID, EMP PSA, CMP #### [facility] [address] [place] [address] USAAST [Catalytic activity/Vol]30 U/OZejwrn60-62Wdu [facility] Physician GroupComment on above:Performed By: #### A1C WTH eA, CHC CBC, LIPID, EMP PSA, CMP #### [place] [address] USABilirubin [Mass/Vol]0.8 mg/dLNormal0.3-1.0The [facility] Physician GroupComment on above:Performed By: #### A1C WTH eA, CHC CBC, LIPID, EMP PSA, CMP #### [place] [address] USACalcium [Mass/Vol]10.5 mg/dLHigh8.6-10.3The [facility] Physician GroupComment on above:Performed By: #### A1C WTH eA, CHC CBC, LIPID, EMP PSA, CMP #### [place] [address] USAChloride [Moles/Vol]96 mmol/BWbb06-583Fnw [facility] Physician GroupComment on above:Performed By: #### A1C WTH eA, CHC CBC, LIPID, EMP PSA, CMP #### [place] [address] USACO2 [Moles/Vol]28.6 mmol/VVvveky12.0-31.0The [facility] Physician GroupComment on above:Performed By: #### A1C WTH eA, CHC CBC, LIPID, EMP PSA, CMP #### [place] [address] USACreatinine [Mass/Vol]0.98 mg/dLNormal0.70-1.30The [facility] Physician GroupComment on above:Performed By: #### A1C WTH eA, CHC CBC, LIPID, EMP PSA, CMP #### [facility] [address] [place] [address] USAGFR/1.73 sq M.predicted MDRD (S/P/Bld) [Vol rate/Area] mL/min/{1.73_m2}NormalThe [facility] Physician GroupComment on above:Performed By: #### A1C WTH eA, CHC CBC, LIPID, EMP PSA, CMP #### [facility] [address] [place] [address] USAGlobulin (S) [Mass/Vol]2.9 g/dLNormalThe [facility] Physician GroupComment on above:Performed By: #### A1C WTH eA, CHC CBC, LIPID, EMP PSA, CMP #### [place] [address] USAGlucose [Mass/Vol]106 mg/xUVbro14-030Dty [facility] Physician GroupComment on above:Result Comment: Random Glucose Reference Range is dependent on time and content of last meal. Glucose of more than 200 mg/dL in a nonstressed, ambulatory subject supports the diagnosis of Diabetes Mellitus. ADA recommended reference rangePerformed By: #### A1C WTH eA, CHC CBC, LIPID, EMP PSA, CMP #### [place] [address] USAPotassium [Moles/Vol]4.1 mmol/LNormal3.5-5.1The [facility] Physician GroupComment on above:Performed By: #### A1C WTH eA, CHC CBC, LIPID, EMP PSA, CMP #### [place] [address] USAProtein [Mass/Vol]7.7 g/dLNormal6.4-8.9The [facility] Physician GroupComment on above:Performed By: #### A1C WTH eA, CHC CBC, LIPID, EMP PSA, CMP #### [place] [address] USASodium [Moles/Vol]134 mmol/UBkk134-782Ula [facility] Physician GroupComment on above:Performed By: #### A1C WTH eA, CHC CBC, LIPID, EMP PSA, CMP #### [address] [place] [address] USAUrea nitrogen [Mass/Vol]15 mg/dLNormal7-25The [facility] Physician GroupComment on above:Performed By: #### A1C [facility] eA, [facility] CBC, LIPID, EMP PSA, CMP #### [facility] [address] [place] [address] USACreatinine [Mass/volume] in Serum or PlasmaOrdered By: Phil Pierre on 61-79-3705Cafgfvcjos [Mass/Vol]Creatinine [Mass/volume] in Serum or Plasma0.70-1.30[facility] HospitalEmployee PSA Totalon 17-37-8228BGN Total ([facility] Orders)1.120 ng/mLNormal0.000-4.000The [facility] Physician GroupComment on above:Result Comment: Serial tumor marker results determined by assays using different manufacturers or methods may not be comparable. [facility] retail client solutions consultant and method: Purchasing PlatformEL DXI, CHEMILUMINESCENT IMMUNOASSAY. PERFORMED BY: [address] [place] [address] PATHOLOGIST JUDGE CLERK FRACISCO ESPINOZA M.D.Performed By: #### A1C [facility] [place], [facility] CBC, LIPID, EMP PSA, CMP #### [facility] [address] [place] [address] USAEosinophils Auto (Bld) [#/Vol]Ordered By: Phil Pierre on 51-82-3229Ofpjizmvlhd (Bld) [#/Vol]Automated eosinophil count0.0-0.45[facility] HospitalEosinophils/100 WBC Auto (Bld)Ordered By: Phil Pierre on 83-73-9223Inytwbijrba/100 WBC (Bld)Automated eosinophil %.[facility] HospitalErythrocyte distribution width Auto (RBC) [Ratio]Ordered By: Phil Pierre on 08-33-7657Diwpdxlvmyh distribution width (RBC) [Ratio]Erythrocyte distribution width [Ratio] by Automated count12.0-14.8[facility] HospitalGlobulin Calc (S) [Mass/Vol]Ordered By: Phil Pierre on 37-33-8126Kjgvcyrp (S) [Mass/Vol]Serum globulin measurement by calculation (mass/volume)[facility] HospitalGlucose [Mass/volume] in Serum or PlasmaOrdered By: Phil Pierre on 70-19-3668Smiklwh [Mass/Vol]Glucose [Mass/volume] in Serum or Plasma Fpor47-117FlzgvirtwOhio Valley Surgical HospitalComment on above:ADA recommended reference rangeRandom Glucose Reference Range is dependent on time and content of last meal. Glucose of more than 200 mg/dL in a nonstressed, ambulatory subject supports the diagnosisof Diabetes Mellitus.Hematocrit Auto (Bld) [Volume fraction]Ordered By: Phil Pierre on 16-50-2000Zbnqmkdnlb (Bld) [Volume fraction] Hematocrit [Volume Fraction] of Blood by Automated count38.8-50.0[facility] HospitalHemoglobin A1c/Hemoglobin.total in BloodOrdered By: Phil Pierre on 48-27-5703XeP1x (Bld) [Mass fraction]Hemoglobin A1c percentage4.3-5.6 [facility] HospitalComment on above:Increased risk for diabetes: 5.7 - 6.4diabetes: >6.4glycemic control for adults with diabetes: <7.0 Hemoglobin [Mass/volume] in BloodOrdered By: Phil Pierre on 61-17-5158Vytsdjdiio (Bld) [Mass/Vol]Hemoglobin [Mass/volume] in Blood13.0-17.0[facility] HospitalLeukocytes [#/volume] corrected for nucleated erythrocytes in Blood by Automated counOrdered By: Phil Pierre on 43-24-8704TEN corrected for nucl RBC Auto (Bld) [#/Vol]Leukocytes [#/volume] corrected for nucleated erythrocytes in Blood by Automated coun4.1-10.5FWright-Patterson [facility] Center Lipid Panelon 73-56-0509Scmechaqnih [Mass/Vol]301 mg/oIWqex645-950Slu [facility] Physician GroupComment on above:Result Comment: Chol less than 200 mg/dl low risk Chol 201-239 mg/dl borderline risk Chol 240 mg/dl and greater high riskPerformed By: #### A1C WTH eA, CHC CBC, LIPID, EMP PSA, CMP #### [facility] [address] [place] [address] USACholesterol in HDL [Mass/Vol]65 mg/eIBxhimm36-21Qrg [facility] Physician GroupComment on above:Result Comment: HDL CHOL ATP-III CLASSIFICATION Cardiovascular Risk HDL > or equal to 60 mg/dL LOW HDL < 40 mg/dL HIGHPerformed By: #### A1C WT eA, CHC CBC, LIPID, EMP PSA, CMP #### [facility] [address] [place] [address] USACholesterol.total/Cholesterol in HDL [Mass ratio]4.6 {ratio}Normal<5.0The [facility] Physician GroupComment on above:Result Comment: PERFORMED BY: [place] [address] PATHOLOGIST JUDGE CLERK FRACISCO ESPINOZA M.D.Performed By: #### A1C WTH eA, CHC CBC, LIPID, EMP PSA, CMP #### [facility] [address] [place] [address] USALDL Cholesterol,Ggnhmgoamq129 mg/dLHigh0-100The [facility] Physician GroupComment on above:Result Comment: LDL ATP III CLASSIFICATION LDL less than 100 mg/dL Optimal LDL 100-129 mg/dL Near or above optimal LDL 130-159 mg/dL Borderline high LDL 160-189 mg/dL High LDL greater than 189 mg/dL Very highPerformed By: #### A1C WTH eA, [facility] CBC, LIPID, EMP PSA, CMP #### [facility] [address] [place] [address] USATriglyceride w/Vnwzon253 mg/dLHigh0-149The [facility] Physician GroupComment on above:Result Comment: TRIG ATP III CLASSIFICATION TRIG less than 150 mg/dL Normal TRIG 150-199 mg/dL Borderline high TRIG 200-500 mg/dL High TRIG greater than 500 mg/dL Very high Standard traceable to the Center for Disease Conrtrol and Prevention (CDC) test method.Performed By: #### A1C WTH eA, CHC CBC, LIPID, EMP PSA, CMP #### [facility] [address] [place] [address] USAVLDL CLBFZJMWKKR67 mg/dLNormalThe [facility] GroupComment on above:Performed By: #### A1C WTH eA, CHC CBC, LIPID, EMP PSA, CMP #### [facility] [address] [place] [address] USALymphocytes Auto (Bld) [#/Vol]Ordered By: Phil Pierre on 36-19-6274Yfbjmcsfkpe (Bld) [#/Vol]Lymphocytes [#/volume] in Blood by Automated count1.00-4.8[facility] HospitalLymphocytes/100 WBC Auto (Bld) Ordered By: Phil Pierre on 75-28-3051Dzbttfhsjbo/100 WBC (Bld)Lymphocytes/100 leukocytes in Blood by Automated count.[facility] CenterH Auto (RBC) [Entitic mass]Ordered By: Phil Pierre on 03-61-5361LCE (RBC) [Entitic mass]MCH [Entitic mass] by Automated count27.5-35.2FWright-Patterson Medical CenterMCHC Auto (RBC) [Mass/Vol]Ordered By: Phil Pierre on 95-30-4617WNQH (RBC) [Mass/Vol]MCHC [Mass/volume] by Automated count32.5-35.6FWright-Patterson Medical CenterMCV Auto (RBC) [Entitic vol]Ordered By: Phil Pierre on 07-03-2024 MCV (RBC) [Entitic vol]MCV [Entitic volume] by Automated count83.5-101Ohio [facility] HospitalMonocytes Auto (Bld) [#/Vol]Ordered By: Phil Pierre on 57-01-5507Usfrmebjp (Bld) [#/Vol]Automated blood monocyte countHigh0.0-0.8 [facility] HospitalMonocytes/100 WBC Auto (Bld)Ordered By: Phil Pierre on 10-47-5624Sjdoncvmx/100 WBC (Bld)Automated monocyte %.[facility] HospitalNeutrophils Auto (Bld) [#/Vol]Ordered By: Phil Pierre on 28-87-6247Guxyhayjojq (Bld) [#/Vol]Neutrophils [#/volume] in Blood by Automated count1.8-7.7FWright-Patterson Medical CenterNeutrophils/100 WBC Auto (Bld) Ordered By: Phil Pierre on 11-41-0489Kjcbjjmigzr/100 WBC (Bld)Automated neutrophil %.[facility] HospitalNo Panel InformationOrdered By: Phil Pierre on 16-06-9610Qrmveuzcn GFR (CKD-EPI)> 60.0 mL/MinOhio Valley Surgical HospitalPharmacy Creatinine Clearance (ChemN/AFWright-Patterson Medical CenterNucleated erythrocytes [Presence] in Blood by Automated countOrdered By: Phil Pierre on 06-78-8435[place] RBC Auto Ql (Bld)Nucleated erythrocytes [Presence] in Blood by Automated count0-0.5FW[facility] Platelet mean volume Auto (Bld) [Entitic vol]Ordered By: Phil Pierre on 38-26-8129Zuamdnxj mean volume (Bld) [Entitic vol]Platelet mean volume [Entitic volume] in Blood by Automated count6.6-10.1FW[facility] Center Platelets Auto (Bld) [#/Vol]Ordered By: Phil Pierre on 46-31-2307Sjiquljjm (Bld) [#/Vol]Platelets [#/volume] in Blood by Automated kzigw061-927JyollyyzpOhio Valley Surgical HospitalPotassium [Moles/volume] in Serum or PlasmaOrdered By: Phil Pierre on 37-88-2965Hpjfgnkyu [Moles/Vol]Potassium [Moles/volume] in Serum or Plasma 3.5-5.1FWright-Patterson Medical CenterProstate specific Ag [Mass/volume] in Serum or PlasmaOrdered By: Phil Pierre on 65-97-1722Ecjjfrza specific Ag [Mass/Vol]Prostate specific Ag [Mass/volume] in Serum or Plasma0.000-4.000 [facility] HospitalComment on above:Serial tumor marker results determined by assays using different manufacturers or methods may not be comparable.[facility] retail client solutions consultant and method:SAUL 9Mile LabsEL DXI, CHEMILUMINESCENT IMMUNOASSAY.Protein [Mass/volume] in Serum or PlasmaOrdered By: Phil Pierre on 19-37-4163Nnasuln [Mass/Vol]Protein [Mass/volume] in Serum or Plasma6.4-8.9[facility] HospitalRBC Auto (Bld) [#/Vol]Ordered By: Phil Pierre on 03-40-4403CTV (Bld) [#/Vol]Erythrocytes [#/volume] in Blood by Automated count3.90-5.60[facility] Hospitalerum or plasma albumin/globulin mass ratioOrdered By: Phil Pierre on 20-37-3707Pststox/Globulin [Mass ratio]Serum or plasma albumin/globulin mass ratioToledo Hospitalerum or plasma anion gap determinationOrdered By: Phil Pierre on 20-21-6465Hkxqy gap [Moles/Vol]Serum or plasma anion gap determination6.0-15.0 [facility] Hospitalerum or plasma total cholesterol/high density lipoprotein (HDL) cholesterol mass ratOrdered By: Phil Pierre on 07-03-2024 Cholesterol.total/Cholesterol in HDL [Mass ratio]Serum or plasma total cholesterol/high density lipoprotein (HDL) cholesterol mass rat<5.0[facility]edo Hospitalodium [Moles/volume] in Serum or PlasmaOrdered By: Phil Pierre on 71-43-1798Xzmnar [Moles/Vol]Sodium [Moles/volume] in Serum or PlasmaLow 136-145Ohio [facility] Surgical HospitalTriglyceride [Mass/volume] in Serum or PlasmaOrdered By: Phil Pierre on 72-58-2332Aygekoithtip [Mass/Vol]Triglyceride [Mass/volume] in Serum or PlasmaHigh0-149[facility] Comment on above:TRIG ATP III CLASSIFICATIONTRIG less than 150 mg/dL NormalTRIG 150-199 mg/dL Borderline highTRIG 200-500 mg/dL High TRIG greater than 500 mg/dL Very highStandard traceable to the Center for Disease Conrtrol and Prevention (CDC) test method.Urea nitrogen [Mass/volume] in Serum or PlasmaOrdered By: Phil Pierre on 83-10-5159Qixp nitrogen [Mass/Vol]Urea nitrogen [Mass/volume] in Serum or Plasma7-25[facility] HospitalWBC Auto (Bld) [#/Vol] Ordered By: Phil Pierre on 63-99-5941DGQ (Bld) [#/Vol]Leukocytes [#/volume] in Blood by Automated count4.1-10.5FWright-Patterson Medical CenterXR Foot - right 3 Viewson 83-03-5249Rjgtosn Result: Notable degenerative changes to 1st MPJ with decreased joint space narrowing and negative fractures identified with increase of interphalangeal angle of the right hallux IPJNOSSM [facility] Study observation (narrative)NOMS HealthcareInfluenza virus B Ag [Presence] in Upper respiratory specimen by Rapid immunoassayon 50-41-3587TABXG Ag IA.rapid Ql (Nph)Influenza virus B Ag [Presence] in Upper respiratory specimen by Rapid immunoassayOhio Valley Surgical HospitalNo Panel Informationon 11-51-5721Vyxsqgmrv Type A (Rapid)NegativeOhio Valley Surgical HospitalPOC SARS CoV-2 AntigenNegativeOhio Valley Surgical Hospital Basophils Auto (Bld) [#/Vol]on 73-80-4375Ciwgdgfpd (Bld) [#/Vol]0.1 10 3/uL 0.0-0.1FWright-Patterson Medical CenterBasophils/100 WBC Auto (Bld)on 38-61-0946Krjytwpzo/100 WBC (Bld)0.7 %0.2-2.0[facility] Eosinophils/100 WBC Auto (Bld)on 87-80-6805Wmlgqcbkajx/100 WBC (Bld)2.8 %0.9-7.0 [facility] HospitalErythrocyte distribution width Auto (RBC) [Ratio]on 40-56-2246Krjqcqsabfh distribution width (RBC) [Ratio]11.5 %11.0-15.0 [facility] HospitalHematocrit Auto (Bld) [Volume fraction]on 09-36-0039Qwsljhvsxv (Bld) [Volume fraction]40.7 %Low42.0-54.0[facility] HospitalHemoglobin [Mass/volume] in Bloodon 11-52-2693Vhvkpdgozf (Bld) [Mass/Vol]13.6 g/dLLow14.0-18.0[facility] HospitalIron binding capacity [Mass/volume] in Serum or Plasmaon 26-07-4283Hbuu binding capacity [Mass/Vol]362.0 ug/dL250.0-450.0[facility] HospitalIron saturation [Mass Fraction] in Serum or Plasmaon 71-17-4653Upas saturation [Mass fraction] 32.3 %[facility] HospitalLaboratory - Chemistry and Chemistry - challengeon 72-23-3454Uneqwyhgw (Vitamin B12) [Mass/Vol]1150.0 pg/mLHigh 193.0-986.0[facility] HospitalFerritin [Mass/Vol]277.0 ng/mL 26.0-388.0[facility] HospitalIron [Mass/Vol]117.0 ug/dL65.0-175.0 [facility] HospitalLaboratory - Hematology and Cell countson 15-41-5050Vsueryuo granulocytes/100 WBC (Bld)0.3 %0.0-0.5FWright-Patterson Medical CenterLeukocytes [#/volume] corrected for nucleated erythrocytes in Blood by Automated counon 09-25-8490VKI corrected for nucl RBC Auto (Bld) [#/Vol]6.8 10 3/uL4.0-11.0[facility] HospitalLymphocytes Auto (Bld) [#/Vol]on 36-18-1352Wjhdxicqacj (Bld) [#/Vol]1.8 10 3/uL1.2-3.8[facility] HospitalLymphocytes/100 WBC Auto (Bld)on 10-10-2023 Lymphocytes/100 WBC (Bld)25.9 %20.5-60.0[facility] CenterH Auto (RBC) [Entitic mass]on 14-05-3570CBC (RBC) [Entitic mass]32.4 pg25.9-34.0 [facility] HospitalMCHC Auto (RBC) [Mass/Vol]on 79-79-4616HAFN (RBC) [Mass/Vol]33.4 g/dL29.9-35.2FWright-Patterson Medical CenterMCV Auto (RBC) [Entitic vol]on 54-39-7704RPG (RBC) [Entitic vol]96.9 pWKdmv02.0-94.0 [facility] HospitalMonocytes Auto (Bld) [#/Vol]on 10-10-2023 Monocytes (Bld) [#/Vol]1.0 10 3/uLHigh0.3-0.8[facility] Monocytes/100 WBC Auto (Bld)on 63-81-3519Lzrqivyor/100 WBC (Bld)15.2 %High 1.7-12.0[facility] HospitalNeutrophils Auto (Bld) [#/Vol]on 13-99-6543Gsspxtoqqfn (Bld) [#/Vol]3.7 10 3/uL1.4-6.5FWright-Patterson Medical CenterNeutrophils/100 WBC Auto (Bld)on 08-83-4285Osntmgaemvr/100 WBC (Bld)55.1 % 43.0-75.0[facility] HospitalNo Panel Informationon 10-10-2023 Eosinophils # (Auto)0.2 10 3/uL0.0-0.7FWright-Patterson Medical CenterFolate 26.40 ng/mL8.60-58.90[facility] HospitalImmature Granulocyte # (Auto)0.02 10 3/uL0.00-0.03[facility] HospitalPlatelet mean volume Auto (Bld) [Entitic vol]on 32-21-1812Dpwccwjb mean volume (Bld) [Entitic vol] 9.0 fLLow9.5-13.5FWright-Patterson Medical CenterPlatelets Auto (Bld) [#/Vol]on 22-52-1641Bfkdhwsps (Bld) [#/Vol]320 10 3/xJ645-352IimtdhvspOhio Valley Surgical HospitalRBC Auto (Bld) [#/Vol]on 56-62-3944TCO (Bld) [#/Vol]4.20 10 6/uLLow 4.70-6.10[facility] HospitalBasophils Auto (Bld) [#/Vol]on 40-53-4844Tnjwljsfu (Bld) [#/Vol]0.0 10 3/uL0.0-0.1FWright-Patterson Medical CenterBasophils/100 WBC Auto (Bld)on 35-59-6193Erwfxlval/100 WBC (Bld)0.5 % 0.2-2.0[facility] HospitalCholesterol in LDL Calc [Mass/Vol]on 09-99-6956Zpufwnhlvks in LDL [Mass/Vol]187.0 mg/dLOhio Valley Surgical HospitalComment on above:<100 mg/dl YKIMDAN649-297 mg/dl NEAR OR ABOVE RCHPDMN044- 159 mg/dl BORDERLINE XHYL710-642 mg/dl HIGH>190 mg/dl VERY HIGHCholesterol in VLDL Calc [Mass/Vol]on 37-53-2452Ewcmwpckyur in VLDL [Mass/Vol]20.4 mg/dL [facility] HospitalEosinophils/100 WBC Auto (Bld)on 06-29-2023 Eosinophils/100 WBC (Bld)3.8 %0.9-7.0[facility] Erythrocyte distribution width Auto (RBC) [Ratio]on 11-42-0015Hvcbebnsqnx distribution width (RBC) [Ratio]11.9 %11.0-15.0[facility] Estimated glomerular filtration rate (GFR) non- Americanon 06-29-2023 GFR/1.73 sq M.predicted among non-blacks MDRD (S/P/Bld) [Vol rate/Area] mL/min/{1.73_m2}>=60[facility] HospitalGlobulin Calc (S) [Mass/Vol]on 70-26-0433Hjwtidjh (S) [Mass/Vol]3.8 g/dLOhio Valley Surgical HospitalGlucose mean value [Mass/volume] in Blood Estimated from glycated hemoglobinon 72-44-9542Lilrelu glucose Estimated from glycated hemoglobin (Bld) [Mass/Vol]103 mg/dLOhio Valley Surgical HospitalHematocrit Auto (Bld) [Volume fraction]on 92-36-4445Ukngzbiymr (Bld) [Volume fraction]40.0 %42.0-54.0 [facility] HospitalHemoglobin [Mass/volume] in Bloodon 06-29-2023 Hemoglobin (Bld) [Mass/Vol]13.3 g/dL14.0-18.0[facility] Laboratory - Chemistry and Chemistry - challengeon 86-67-0268Jsxblzi [Mass/Vol] 4.2 g/dL3.4-5.0[facility] HospitalALP [Catalytic activity/Vol]89 U/C90-110ShrzfshfuOhio Valley Surgical HospitalALT [Catalytic activity/Vol]39 U/L 16-63[facility] HospitalAST [Catalytic activity/Vol]27 U/L15-37 [facility] HospitalBilirubin [Mass/Vol]0.5 mg/dL0.2-1.0[facility] HospitalCalcium [Mass/Vol]9.6 mg/dL8.5-10.1FWright-Patterson Medical CenterChloride [Moles/Vol]94 mmol/O02-411JwphfzlvfOhio Valley Surgical HospitalCholesterol [Mass/Vol]264 mg/dL<=200[facility] Cholesterol in HDL [Mass/Vol]57 mg/iK83-52MjeubjmipOhio Valley Surgical Hospital Comment on above:> or =60 mg/dl - LOW CARDIOVASCULAR RISK<40 mg/dl - HIGH CARDIOVASCULAR RISKCO2 [Moles/Vol]26.2 mmol/L21.0-32.0[facility] HospitalCreatinine [Mass/Vol]0.96 mg/dL0.70-1.30[facility] GFR/1.73 sq M.predicted MDRD (S/P/Bld) [Vol rate/Area]mL/min/{1.73_m2}>=60 [facility] HospitalGlucose [Mass/Vol]85 mg/sU41-869IvucggzfiOhio Valley Surgical HospitalPotassium [Moles/Vol]4.6 mmol/L3.5-5.1FWright-Patterson Medical CenterProtein [Mass/Vol]8.0 g/dL6.4-8.2FW[facility] Sodium [Moles/Vol]133 mmol/F686-538FxcopcimwOhio Valley Surgical HospitalT4 [Mass/Vol]6.00 ug/dL4.50-12.10[facility] HospitalTriglyceride [Mass/Vol]102 mg/dL<=150[facility] HospitalTSH Qn0.951 m[IU]/L 0.358-3.740[facility] HospitalUrea nitrogen [Mass/Vol]10.0 mg/dL 7.0-18.0[facility] HospitalUrea nitrogen/Creatinine [Mass ratio] 10.4 mg/mgOhio Valley Surgical HospitalLaboratory - Hematology and Cell countson 01-18-6547AcD4i (Bld) [Mass fraction]5.2 %4.5-6.2FWright-Patterson Medical CenterComment on above:ADA RECOMMENDED LIMIT 4.0 - 6.0ADA THERAPEUTIC TARGET < 7.0ACTION SUGGESTED> 7.0Immature granulocytes/100 WBC (Bld)0.2 %0.0-0.5 [facility] HospitalLeukocytes [#/volume] corrected for nucleated erythrocytes in Blood by Automated counon 67-90-5137JTC corrected for nucl RBC Auto (Bld) [#/Vol]5.5 10 3/uL4.0-11.0[facility] Lymphocytes Auto (Bld) [#/Vol]on 89-23-3724Gfdgjbmyupn (Bld) [#/Vol]2.1 10 3/uL 1.2-3.8[facility] HospitalLymphocytes/100 WBC Auto (Bld)on 40-80-6308Legejpameww/100 WBC (Bld)37.1 %20.5-60.0[facility] CenterH Auto (RBC) [Entitic mass]on 30-82-1012WYB (RBC) [Entitic mass]32.4 pg 25.9-34.0[facility] HospitalMCHC Auto (RBC) [Mass/Vol]on 17-84-2986KNOP (RBC) [Mass/Vol]33.3 g/dL29.9-35.2FWright-Patterson Medical CenterMCV Auto (RBC) [Entitic vol]on 39-68-7224JVD (RBC) [Entitic vol]97.3 fL 80.0-94.0[facility] HospitalMonocytes Auto (Bld) [#/Vol]on 05-86-3561Iwrvvzqat (Bld) [#/Vol]0.8 10 3/uL0.3-0.8[facility] HospitalMonocytes/100 WBC Auto (Bld)on 42-20-6157Noyhqgcet/100 WBC (Bld)14.6 % 1.7-12.0[facility] HospitalNeutrophils Auto (Bld) [#/Vol]on 88-35-7358Cxwjijktgum (Bld) [#/Vol]2.4 10 3/uL1.4-6.5FWright-Patterson Medical CenterNeutrophils/100 WBC Auto (Bld)on 49-87-0979Audfcwqofbv/100 WBC (Bld)43.8 % 43.0-75.0[facility] HospitalNo Panel Informationon 06-29-2023 Eosinophils # (Auto)0.2 10 3/uL0.0-0.7FWright-Patterson Medical CenterImmature Granulocyte # (Auto)0.01 10 3/uL0.00-0.03[facility] Prostate Specific Antigen Screen0.98 ng/mL<=4.00[facility] HospitalPlatelet mean volume Auto (Bld) [Entitic vol]on 59-07-7673Gweetxoq mean volume (Bld) [Entitic vol]9.6 fL9.5-13.5FW[facility] Platelets Auto (Bld) [#/Vol]on 94-73-3860Gwiqiiimb (Bld) [#/Vol]330 10 3/uL 150-450[facility] HospitalRBC Auto (Bld) [#/Vol]on 33-35-7663BNR (Bld) [#/Vol]4.11 10 6/uL4.70-6.10[facility]edo Hospitalerum or plasma albumin/globulin mass ratioon 01-35-0210Eyjzffq/Globulin [Mass ratio]1.1 {ratio}[facility] Hospitalerum or plasma anion gap determination on 15-79-1483Gpcte gap [Moles/Vol]17.4 mmol/LFWright-Patterson Medical Center Serum or plasma total cholesterol/high density lipoprotein (HDL) cholesterol mass mina 79-67-3346Ttdwxxvetnw.total/Cholesterol in HDL [Mass ratio]4.6 {ratio}[facility] HospitalComment on above:3.3 - 4.4 LOW RISK4.4 - 7.1 AVERAGE RISK7.1 - 11.0 MODERATE RISK>11.0 HIGH RISKCBC AUTO DIFFon 11-64-8475RUPO #0.0 103/ulNormal0.0-0.1The [facility] - CincinnatiComment on above: Performed By: #### CBC #### [facility] [address] [address] [address] Sherman Mosessophils/100 WBC (Bld)0.6 %Normal0.2-2.0The [facility] Comment on above:Performed By: #### CBC #### [facility] [address] [place] [address] Dr. Sherman Cevallos #0.2 103/ulNormal0.0-0.7The [facility] - CincinnatiComment on above: Performed By: #### CBC #### [facility] [address] [place] [address] Dr. Sherman Romeroosinophils/100 WBC (Bld)3.4 %Normal0.9-7.0The [facility] Comment on above:Performed By: #### CBC #### [facility] [address] [place] [address] Dr. Sherman Romerorythrocyte distribution width (RBC) [Ratio]12.9 %Eoxeqj07.0-15.0 The [facility] - CincinnatiComment on above:Performed By: #### CBC #### [facility] [address] [place] [address] Dr. Sherman SantosHematocrit (Bld) [Volume fraction]42.3 %Yeaecf42.0-54.0The [facility] CincinnatiComment on above:Performed By: #### CBC #### [facility] [address] [place] [address] Dr. Sherman SantosHemoglobin (Bld) [Mass/Vol]14.1 g/sIPrlwrf66.0-18.0The [facility] CincinnatiComment on above:Performed By: #### CBC #### [facility] [address] [place] [address] Dr. Sherman Toledo #0.02 10e3/ulNormal0.00-0.03The [facility] CincinnatiComment on above:Performed By: #### CBC #### [facility] [address] [place] [address] Dr. Sherman Toledo %0.4 %Normal0.0-0.5The [facility] CincinnatiComment on above: Performed By: #### CBC #### [facility] [address] [place] [address] Dr. Sherman Yeager #1.8 103/ulNormal1.2-3.8The [facility] CincinnatiComment on above:Performed By: #### CBC #### [facility] [address] [place] [address] Dr. Sherman Hernandezhocytes/100 WBC (Bld)35.9 %Dsvwpr58.5-60.0The [facility] CincinnatiComment on above:Performed By: #### CBC #### [facility] [address] [address] [address] Sherman Meraz DIFF REQNONormalThe [facility] CincinnatiComment on above: Performed By: #### CBC #### [facility] [address] [place] [address] Dr. Sherman House (RBC) [Entitic mass]32.2 vvSrxnsy22.9-34.0The [facility] CincinnatiComment on above:Performed By: #### CBC #### [facility] [address] [place] [address] Dr. Sherman Mckenzie (RBC) [Mass/Vol]33.3 g/jXVlrsme34.9-35.2The [facility] CincinnatiComment on above:Performed By: #### CBC #### [facility] [address] [place] [address] Dr. Sherman Mckenzie (RBC) [Entitic vol]96.6 fLCritically high80.0-94.0The [facility] CincinnatiComment on above:Performed By: #### CBC #### [facility] [address] [place] [address] Dr. Sherman Freeman #1.0 103/ulCritically high0.3-0.8The [facility] Comment on above:Performed By: #### CBC #### [facility] [address] [place] [address] Dr. Sherman Pradhanocytes/100 WBC (Bld)19.1 %Critically high1.7-12.0The [facility] CincinnatiComment on above:Performed By: #### CBC #### [facility] [address] [place], [place] [address] Dr. Sherman Buck #2.0 103/ulNormal1.4-6.5The [facility] CincinnatiComment on above:Performed By: #### CBC #### [facility] [address] [place] [address] Dr. Sherman Crawleyutrophils/100 WBC (Bld)40.6 %Critically low43.0-75.0The [facility] CincinnatiComment on above:Performed By: #### CBC #### [facility] [address] [place] [address] Dr. Sherman SantosPlatelet mean volume (Bld) [Entitic vol]9.5 fLNormal9.5-13.5The [facility] CincinnatiComment on above:Performed By: #### CBC #### [facility] [address] [place] [address] Dr. Sherman SantosPLT348 103/krVkxopr940-727Hqg [facility] CincinnatiComment on above: Performed By: #### CBC #### [facility] [address] [place] [address] Dr. Sherman SantosRBC4.38 106/ulCritically low4.70-6.10The [facility]Comm[facility] on above:Performed By: #### CBC #### [facility] [address] [place] [address] Dr. Sherman SantosWBC5.0 103/ulNormal4.0-11.0The [facility]Comm[facility] on above: Performed By: #### CBC #### [facility] [address] [place] [address] Dr. Sherman SantosLIPID PROFILEon [id number]-HDL RATIO NORMSEE [facility]Commcl[facility] on above:Result Comment: 3.3 - 4.4 LOW RISK 4.4 - 7.1 AVERAGE RISK 7.1 - 11.0 MODERATE RISK >11.0 HIGH RISKPerformed By: #### PSASC #### [facility] [address] [place] [address] Dr. Sherman SantosCholesterol [Mass/Vol]271 mg/dLCritically high<=200The [facility] on above:Performed By: #### PSASC #### [facility] [address] [address] [address] Sherman SantosCholesterol in HDL [Mass/Vol]47 mg/sWFkwtbc76-89Wcg [facility] on above:Performed By: #### PSASC #### [facility] [address] [address] [address] Sherman SantosCholesterol in LDL [Mass/Vol]185.6 mg/dLSouthwest General Health CenterCommclaren bay region on above:Performed By: #### PSASC #### [facility] [address] [place] [address] Dr. Sherman Gallagher.total/Cholesterol in HDL [Mass ratio]5.8 {ratio} NormalThe [facility] on above:Performed By: #### PSASC #### [facility] [address] [place] [address] Dr. Sherman Rees NORMAL> or = 60 mg/dl - LOW CARDIOVASCULAR RISK <40 mg/dl - HIGH CARDIOVASCULAR RISKSouthwest General Health CenterCommclaren [facility] region on above:Performed By: #### PSASC #### [facility] [address] [place] [address] Dr. Sherman Smith CALC NORMALSEE BELOWSouthwest General Health CenterCommclaren bay region on above:Result Comment: <100 mg/dl OPTIMAL 100 - 129 mg/dl NEAR OR ABOVE OPTIMAL 130 - 159 mg/dl BORDERLINE HIGH 160 - 189 mg/dl HIGH >190 mg/dl VERY HIGH Performed By: #### PSASC #### [facility] [address] [place] [address] Dr. Sherman SantosTriglyceride [Mass/Vol]192 mg/dLCritically high<=150The [facility] on above:Performed By: #### PSASC #### [facility] [address] [place] [address] Dr. Sherman PaniaguaLDL CALC38.4 mg/dLSouthwest General Health CenterCommclaren bay region on above: Performed By: #### PSASC #### [facility] [address] [address] [address] Sherman AgarwalF 14(COMP METB)on 18-44-0486Ufuluji [Mass/Vol]4.2 g/dLNormal 3.4-5.0The [facility] CincinnatiComment on above:Performed By: #### OSMO #### [facility] [address] [place] [address] Dr. Sherman SantosAlbumin/Globulin [Mass ratio]1.1 {ratio}NormalThe [facility] CincinnatiComment on above:Performed By: #### OSMO #### [facility] [address] [place] [address] Dr. Sherman Lyons [Catalytic activity/Vol]92 U/QEyhzcj14-954Wqh [facility] CincinnatiComment on above:Performed By: #### OSMO #### [facility] [address] [place] [address] Dr. Sherman Dee [Catalytic activity/Vol]40 U/KCcljjh97-36Zkr [facility] CincinnatiComment on above:Performed By: #### OSMO #### [facility] [address] [place] [address] Dr. Sherman Cano gap [Moles/Vol]10.5 mmol/LNormalThe [facility] Comment on above:Performed By: #### OSMO #### [facility] [address] [place] [address] Dr. Sherman SantosAST [Catalytic activity/Vol]30 U/SXjgavz15-71Hej [facility] CincinnatiComment on above:Performed By: #### OSMO #### [facility] [address] [place] [address] Dr. Sherman SantosBilirubin [Mass/Vol]0.7 mg/dLNormal0.2-1.0The [facility] Comment on above:Performed By: #### OSMO #### [facility] [address] [place] [address] Dr. Sherman SantosCalcium [Mass/Vol]9.6 mg/dLNormal8.5-10.1The [facility] Comment on above:Performed By: #### OSMO #### [facility] [address] [address] [address] Sherman SantosChloride [Moles/Vol]98 mmol/UYodsjj89-034Iya [facility] Comment on above:Performed By: #### OSMO #### [facility] [address] [address] [address] Sherman SantosCO2 [Moles/Vol]29.0 mmol/AEprykt32.0-32.0The [facility] Comment on above:Performed By: #### OSMO #### [facility] [address] [address] [address] Sherman SantosCreatinine [Mass/Vol]0.88 mg/dLNormal0.70-1.30The [facility] CincinnatiComment on above:Performed By: #### OSMO #### [facility] [address] [address] [address] Whitaker ChangEGFR-AF CITIZEN OF [place]>60Normal>=60The [facility] CincinnatiComment on above:Performed By: #### OSMO #### [facility] [address] [address] [address] Sherman RomeroGFR-NON AF CITIZEN OF [place]>60Normal>=60The [facility] CincinnatiComment on above:Performed By: #### OSMO #### [facility] [address] [address] [address] Sherman SantosGlobulin (S) [Mass/Vol]3.7 g/dLNormalThe [facility] CincinnatiComment on above:Performed By: #### OSMO #### [facility] [address] [address] [address] Sherman SantosGlucose [Mass/Vol]94 mg/oEIdnswc42-909Oiw [facility] Comment on above:Performed By: #### OSMO #### [facility] [address] [address] [address] Sherman SantosPotassium [Moles/Vol]4.5 mmol/LNormal3.5-5.1The [facility] Comment on above:Performed By: #### OSMO #### [facility] [address] [address] [address] Sherman SantosProtein [Mass/Vol]7.9 g/dLNormal6.4-8.2The [facility] Comment on above:Performed By: #### OSMO #### [facility] [address] [place] [address] Dr. Sherman SantosSodium [Moles/Vol]133 mmol/LCritically ppz414-664Oiw [facility] CincinnatiComment on above:Performed By: #### OSMO #### [facility] [address] [place] [address] Dr. Sherman SantosUrea nitrogen [Mass/Vol]8.0 mg/dLNormal7.0-18.0The [facility] CincinnatiComment on above:Performed By: #### OSMO #### [facility] [address] [place] [address] Dr. Sherman Molina nitrogen/Creatinine [Mass ratio]9.1 mg/mgNormalThe [facility] CincinnatiComment on above:Performed By: #### OSMO #### [facility] [address] [place] [address] Dr. Sherman SantosT4on [id number] [Mass/Vol]6.50 ug/dLNormal4.50-12.10The [facility] CincinnatiComment on above:Performed By: #### OSMO #### [facility] [address] [place] [address] Dr. Sherman AcuñaHomadina 63-94-3742NYC8.780 uIU/mLNormal0.358-3.740The [facility] CincinnatiComment on above:Performed By: #### PSASC #### [facility] [address] [place] [address] Dr. Sherman SantosAMMONIAon 57-46-9051Dyhyujq (P) [Moles/Vol]24 umol/QJvoafo93-75 The [facility] CincinnatiComment on above:Performed By: #### PSASC #### [facility] [address] [place] [address] Dr. Sherman MendezC AUTO DIFFon [id number] #0.1 103/ulNormal0.0-0.1The [facility] CincinnatiComment on above:Performed By: #### CBC #### [facility] [address] [address] [address] Sherman SantosBasophils/100 WBC (Bld)0.7 %Normal0.2-2.0The [facility] Comment on above:Performed By: #### CBC #### [facility] [address] [address] [address] Sherman Cevallos #0.2 103/ulNormal0.0-0.7The [facility] CincinnatiComment on above: Performed By: #### CBC #### [facility] [address] [place] [address] Dr. Sherman Romeroosinophils/100 WBC (Bld)2.7 %Normal0.9-7.0The [facility] Comment on above:Performed By: #### CBC #### [facility] [address] [place] [address] Dr. Sherman Romerorythrocyte distribution width (RBC) [Ratio]12.1 %Vozkjb88.0-15.0 The [facility] CincinnatiComment on above:Performed By: #### CBC #### [facility] [address] [place] [address] Dr. Sherman SantosHematocrit (Bld) [Volume fraction]36.0 %Critically low42.0-54.0 The [facility] CincinnatiComment on above:Performed By: #### CBC #### [facility] [address] [place] [address] Dr. Sherman SantosHemoglobin (Bld) [Mass/Vol]12.6 g/dLCritically low14.0-18.0The [facility] CincinnatiComment on above:Performed By: #### CBC #### [facility] [address] [place] [address] Dr. Sherman Toledo #0.02 10e3/ulNormal0.00-0.03The [facility] CincinnatiComment on above:Performed By: #### CBC #### [facility] [address] [address] [address] Sherman Toledo %0.3 %Normal0.0-0.5The [facility] on above: Performed By: #### CBC #### [facility] [address] [place] [address] Dr. Sherman Yeager #2.7 103/ulNormal1.2-3.8The [facility] CincinnatiCommcl[facility] on above:Performed By: #### CBC #### [facility] [address] [place] [address] Dr. Sherman Hernandezhocytes/100 WBC (Bld)39.4 %Zwpnlf59.5-60.0The [facility] on above:Performed By: #### CBC #### [facility] [address] [place] [address] Dr. Sherman oMUAL DIFF REQNONormalThe [facility] CincinnatiComment on above: Performed By: #### CBC #### [facility] [address] [place] [address] Dr. Sherman Mckenzie (RBC) [Entitic mass]32.1 qeRodkqm00.9-34.0The [facility] on above:Performed By: #### CBC #### [facility] [address] [place] [address] Dr. Sherman Mckenzie (RBC) [Mass/Vol]35.0 g/iTLbxivq77.9-35.2The [facility] on above:Performed By: #### CBC #### [facility] [address] [place] [address] Dr. Sehrman Mckenzie (RBC) [Entitic vol]91.8 nYAkkrne03.0-94.0The [facility] on above:Performed By: #### CBC #### [facility] [address] [place] [address] Dr. Sherman Freeman #0.8 103/ulNormal0.3-0.8The [facility]ment on above:Performed By: #### CBC #### [facility] [address] [address] [address] Sherman Pradhanocytes/100 WBC (Bld)11.8 %Normal1.7-12.0The [facility] Comment on above:Performed By: #### CBC #### [facility] [address] [address] [address] Sherman CrawleyUT #3.1 103/ulNormal1.4-6.5The [facility] CincinnatiComment on above:Performed By: #### CBC #### [facility] [address] [address] [address] Sherman Crawleyutrophils/100 WBC (Bld)45.1 %Tgtubo32.0-75.0The [facility] CincinnatiComment on above:Performed By: #### CBC #### [facility] [address] [place] [address] Dr. Sherman SantosPlatelet mean volume (Bld) [Entitic vol]8.5 fLCritically low 9.5-13.5The [facility] CincinnatiComment on above:Performed By: #### CBC #### [facility] [address] [address] [address] Sherman SantosPLT292 103/ynSyhakc429-702Mtg [facility] CincinnatiComment on above: Performed By: #### CBC #### [facility] [address] [place] [address] Dr. Sherman SantosRBC3.92 106/ulCritically low4.70-6.10The [facility] CincinnatiComment on above:Performed By: #### CBC #### [facility] [address] [place] [address] Dr. Sherman SantosWBC7.0 103/ulNormal4.0-11.0The [facility] CincinnatiComment on above: Performed By: #### CBC #### [facility] [address] [place] [address] Dr. Sherman SantosCT STROKE HEAD WOon [id number] STROKE HEAD WOEXAMINATION: CT STROKE HEAD WO [...] Electronically authenticated by: HAWA SULLIVAN Date: 2022-03-02 18:10[facility] URINE PROFILEon 42-05-1471Qddsmdlvg Ql (U)NegativeNormal NEGATIVEWright-Patterson Medical CenterComment on above:Performed By: #### ERUR #### [facility] [address] [place] [address] Dr. Sherman SantosClarity (U)CLEARNormalCLEARWright-Patterson Medical CenterComment on above: Performed By: #### ERUR #### [facility] [address] [place] [address] Dr. Sherman Liao (U)LT. YELLOWNormalYELLOWWright-Patterson Medical CenterComment on above:Performed By: #### ERUR #### [facility] [address] [place] [address] Dr. Sherman Reyes micrscopic examination will be performed if indicated. NormalWright-Patterson Medical CenterComment on above:Performed By: #### ERUR #### [facility] [address] [place] [address] Dr. Sherman SantosGlucose Ql (U)NegativeNormalNEGATIVEWright-Patterson Medical CenterComment on above:Performed By: #### ERUR #### [facility] [address] [place] [address] Dr. Sherman SantosHemoglobin Ql (U)NegativeNormalNEGATIVEOhiohealth Dublin Methodist Hospital on above:Performed By: #### ERUR #### [facility] [address] [place] [address] Dr. Sherman SantosKetones Ql (U)NegativeNormalNEGATIVEWright-Patterson Medical CenterComment on above:Performed By: #### ERUR #### [facility] [address] [place] [address] Dr. Sherman SantosLEUKOCYTESNegativeNormalNEGATIVEWright-Patterson Medical CenterComment on above:Performed By: #### ERUR #### [facility] [address] [place] [address] Dr. Sherman SantosNitrite Ql (U)NegativeNormalNEGATIVEThe [facility] CincinnatiComment on above:Performed By: #### ERUR #### [facility] [address] [place] [address] Dr. Sherman SantospH (U)6.0 [pH]Normal5-9The [facility] CincinnatiComment on above: Performed By: #### ERUR #### [facility] [address] [place] [address] Dr. Sherman SantosSPEC GRAVITY<=1.934Nucheqgk9.005-<=1.025[facility] Comment on above:Performed By: #### ERUR #### [facility] [address] [place] [address] Dr. Sherman Simons PROTEINNegativeNormalNEGATIVE/ TRACEThe [facility] Comment on above:Performed By: #### ERUR #### [facility] [address] [place] [address] Dr. Sherman Haque MICRO INDNOT INDICATEDNoalThSelect Medical [facility] Hospital - DublinComment on above:Performed By: #### ERUR #### [facility] [address] [place] [address] Dr. Sherman Rosalesbilinogen Qn (U)0.2 {Norris'U}/dLNormal0.2 - 1.0W[facility]-Patterson Medical CenterComment on above:Performed By: #### ERUR #### [facility] [address] [place] [address] Dr. Sherman SantosMRI BRAIN WO W CONon [id number] BRAIN WO W CONEXAMINATION: MRI BRAIN WO [...] Electronically authenticated by: CARLOS HOLLOWAY Date: 2022-03-02 09:11[facility] CenterPROF 14(COMP METB)on 16-11-3041Ogmtbdw [Mass/Vol]3.9 g/dLNormal 3.4-5.0The [facility] CincinnatiComment on above:Performed By: #### OSMO #### [facility] [address] [place] [address] Dr. Sherman SantosAlbumin/Globulin [Mass ratio]1.1 {ratio}NormalThe [facility] CincinnatiComment on above:Performed By: #### OSMO #### [facility] [address] [place] [address] Dr. Sherman Lyons [Catalytic activity/Vol]79 U/EWfskba79-307Hoh [facility] CincinnatiComment on above:Performed By: #### OSMO #### [facility] [address] [place] [address] Dr. Sherman Dee [Catalytic activity/Vol]35 U/AAelxdr55-02Woe [facility] CincinnatiComment on above:Performed By: #### OSMO #### [facility] [address] [place] [address] Dr. Sherman Cano gap [Moles/Vol]12.6 mmol/LNormalThe [facility] Comment on above:Performed By: #### OSMO #### [facility] [address] [place] [address] Dr. Yilan ChangAST [Catalytic activity/Vol]25 U/EHmkicn03-34Tbt [facility] CincinnatiComment on above:Performed By: #### OSMO #### [facility] [address] [place] [address] Dr. Sherman SantosBilirubin [Mass/Vol]0.3 mg/dLNormal0.2-1.0The [facility] Comment on above:Performed By: #### OSMO #### [facility] [address] [place] [address] Dr. Sehrman SantosCalcium [Mass/Vol]8.9 mg/dLNormal8.5-10.1The [facility] Comment on above:Performed By: #### OSMO #### [facility] [address] [place] [address] Dr. Sherman SantosChloride [Moles/Vol]97 mmol/LCritically hhf97-751Bsq [facility] CincinnatiComment on above:Performed By: #### OSMO #### [facility] [address] [place] [address] Dr. Sherman SantosCO2 [Moles/Vol]23.2 mmol/TBkhgtk98.0-32.0The [facility] Comment on above:Performed By: #### OSMO #### [facility] [address] [place] [address] Dr. Sherman SantosCreatinine [Mass/Vol]0.82 mg/dLNormal0.70-1.30The [facility] CincinnatiComment on above:Performed By: #### OSMO #### Select [facility] [address] [place] [address] Dr. Sherman RomeroGFR-AF CITIZEN [place]>60Normal>=60The [facility] CincinnatiComment on above:Performed By: #### OSMO #### [facility] [address] [place] [address] Dr. Sherman RomeroGFR-NON AF CITIZEN OF [place]>60Normal>=60The [facility] CincinnatiComment on above:Performed By: #### OSMO #### [facility] [address] [place] [address] Dr. Sherman SantosGlobulin (S) [Mass/Vol]3.6 g/dLNormPremier Health Miami Valley Hospital SouthComment on above:Performed By: #### OSMO #### [facility] [address] [place] [address] Dr. Sherman SantosGlucose [Mass/Vol]80 mg/lYFadfam31-471Dek [facility] Comment on above:Performed By: #### OSMO #### [facility] [address] [address] [address] Sherman SantosPotassium [Moles/Vol]3.8 mmol/LNormal3.5-5.1The [facility] Comment on above:Performed By: #### OSMO #### [facility] [address] [place] [address] Dr. Sherman SantosProtein [Mass/Vol]7.5 g/dLNormal6.4-8.2The [facility] Comment on above:Performed By: #### OSMO #### [facility] [address] [place] [address] Dr. Sherman SantosSodium [Moles/Vol]129 mmol/LCritically nvp580-108Sgi [facility] CincinnatiComment on above:Performed By: #### OSMO #### [facility] [address] [place] [address] Dr. Sherman SantosUrea nitrogen [Mass/Vol]9.0 mg/dLNormal7.0-18.0The [facility] CincinnatiComment on above:Performed By: #### OSMO #### [facility] [address] [place] [address] Dr. Sherman SantosUrea nitrogen/Creatinine [Mass ratio]11.0 mg/mgNormPremier Health Miami Valley Hospital SouthComment on above:Performed By: #### OSMO #### [facility] [address] [place] [address] Dr. Sherman SantosPROF CHEM 8 (BAS METB)on 50-68-7631Gfher gap [Moles/Vol]8.4 mmol/LNormalThe [facility] CincinnatiComment on above:Performed By: #### BMP #### [facility] [address] [address] [address] Sherman SantosCalcium [Mass/Vol]9.4 mg/dLNormal8.5-10.1The [facility] Comment on above:Performed By: #### BMP #### [facility] [address] [address] [address] Sherman SantosChloride [Moles/Vol]99 mmol/LTaglfm89-097Hsr [facility] Comment on above:Performed By: #### BMP #### [facility] [address] [address] [address] Sherman SantosCO2 [Moles/Vol]32.0 mmol/WRihxcl07.0-32.0The [facility] Comment on above:Performed By: #### BMP #### [facility] [address] [place] [address] Dr. Sherman SantosCreatinine [Mass/Vol]0.97 mg/dLNormal0.70-1.30The [facility] CincinnatiComment on above:Performed By: #### BMP #### [facility] [address] [address] [address] Whitaker ChangEGFR-AF CITIZ[place]>60Normal>=60The [facility] CincinnatiComment on above:Performed By: #### BMP #### [facility] [address] [place] [address] Dr. Sherman RomeroGFR-NON AF CITIZ[place]>60Normal>=60The [facility] CincinnatiComment on above:Performed By: #### BMP #### [facility] [address] [address] [address] Sherman SantosGlucose [Mass/Vol]138 mg/dLCritically zqoo61-658Oxr [facility] CincinnatiComment on above:Performed By: #### BMP #### [facility] [address] [address] [address] Sherman SantosPotassium [Moles/Vol]4.4 mmol/LNormal3.5-5.1The [facility] Comment on above:Performed By: #### BMP #### [facility] [address] [place] [address] Dr. Sherman Adamsum [Moles/Vol]135 mmol/LCritically ddx631-574Qbi [facility] CincinnatiComment on above:Performed By: #### BMP #### [facility] [address] [place] [address] Dr. Sherman Molina nitrogen [Mass/Vol]13.0 mg/dLNormal7.0-18.0[facility]terson Medical CenterComment on above:Performed By: #### BMP #### [facility] [address] [place] [address] Dr. Sherman Molina nitrogen/Creatinine [Mass ratio]13.4 mg/mgNoUniversity Hospitals Geauga Medical CenterComment on above:Performed By: #### BMP #### [facility] [address] [place] [address] Dr. Sherman SantosPROTIMEon 65-66-8303RFM Coag (PPP) [Relative time]0.98 {INR} NormalThe [facility] CincinnatiComment on above:Performed By: #### PSASC #### [facility] [address] [place] [address] Dr. Sherman Osei GUIDELINESSEE BELOWSouthwest General Health CenterComment on above:Result Comment: DESIRED INR: 2.0 - 3.0 CONDITIONS NOT LISTED BELOW 2.5 - 3.5 FOR PROSTHETIC HEART VALVE REPLACEMENT 2.5 - 3.5 RECURRENT THROMBOSIS Performed By: #### PSASC #### [facility] [address] [place] [address] Dr. Sherman Alanis Coag (PPP) [Time]10.6 sNormal9.0-11.6The [facility] Comment on above:Performed By: #### PSASC #### [facility] [address] [place] [address] Dr. Sherman Hernandez 20-97-6652nQJV Coag (Bld) [Time]30.2 eLdcpwm43.3-36.2[facility] Medical CenterComment on above:Performed By: #### PSASC #### [facility] [address] [place] [address] Dr. Sherman Womack, HIGH SENSITIVITYon 02-01-7640SOOBBM14.4 pg/mLNormal 4.0-76.1The [facility] Hospitalment on above:Result Comment: CUT-OFF POINTS HAVE BEEN ESTABLISHED BASED ON THE FOURTH UNIVERSAL DEFINITIONS OF MYOCARDIAL INFARCTION. THE UPPER REFERENCE LIMIT (URL) OF TROPONIN, DEFINED THE 99TH PERCENTILE OF cTnI DISTRIBUTION IN A REFERENCE POPULATION, HAS BEEN CONFIRMED THE DECISION THRESHOLD FOR AL DIAGNOSIS.Performed By: #### OSMO #### [facility] [address] [place] [address] Dr. Sherman Benavides 30-35-8867JMG5.556 uIU/mLNormal0.358-3.740The [facility] CincinnatiComment on above:Performed By: #### OSMO #### [facility] [address] [place] [address] Dr. Sherman SantosXR CHEST 1 Von 86-22-3816DW CHEST 1 VEXAMINATION: XR CHEST 1 V, , 03/02/2022 5:36 PM EST INDICATION: Altered mental status HISTORY: Ordering Provider Reason for Exam: Technologist Note: Additional: COMPARISON: None. TECHNIQUE: Chest x-ray: One view. FINDINGS: No pneumothorax, pleural effusion or focal airspace consolidation. Heart is normal in size. Bony thorax is unremarkable. IMPRESSION: No acute cardiopulmonary process. Electronically authenticated by: SOPHIA AMBRIZ Date: 2022-03-02 18:40NoUniversity Hospitals Geauga Medical CenterXR FOREIGN BODY EYEon [id number] FOREIGN BODY EYEEXAM: XR FOREIGN BODY EYE [...] Electronically authenticated by: BAL OVERTON Date: 2022-03-02 07:55NoUniversity Hospitals Geauga Medical CenterOSMOLALITYon 56-73-8579Nalojxsfki [Osmolality]284 mosm/kgNormal 280-301The [facility] CincinnatiComment on above:Performed By: #### OSMO #### [facility] [address] [place] [address] Dr. Sherman SantosOSMOLALITY URINEon 55-84-6962Ezjhniagic, Dxqhn460 mOsmol/kgNormal [facility]terson Medical CenterComment on above:Result Comment: 24 hr : 300 - 900 Random: 50 - 1400 After 12hr fluid restriction: >850Performed By: #### OSMO #### [facility] [address] [place] [address] Dr. Sherman SantosCBC AUTO DIFFon 24-42-9111XPDN #0.0 103/ulNormal0.0-0.1The [facility] CincinnatiComment on above:Performed By: #### TSH, URIC, CMP #### [facility] [address] [place] [address] Dr. Sherman SantosBasophils/100 WBC (Bld)0.4 %Normal0.2-2.0The [facility] Comment on above:Performed By: #### TSH, URIC, CMP #### [facility] [address] [place] [address] Dr. Sherman Cevallos #0.2 103/ulNormal0.0-0.7The [facility] CincinnatiComment on above: Performed By: #### TSH, URIC, CMP #### [facility] [address] [place] [address] Dr. Sherman Romeroosinophils/100 WBC (Bld)4.0 %Normal0.9-7.0The [facility] Comment on above:Performed By: #### TSH, URIC, CMP #### [facility] [address] [place] [address] Dr. Sherman Romerorythrocyte distribution width (RBC) [Ratio]12.6 %Maffhi10.0-15.0 [facility]terson Medical CenterComment on above:Performed By: #### TSH, URIC, CMP #### [facility] [address] [place] [address] Dr. Sherman SantosHematocrit (Bld) [Volume fraction]43.7 %Avnhug69.0-54.0The [facility] CincinnatiComment on above:Performed By: #### TSH, URIC, CMP #### [facility] [address] [place] [address] Dr. Sherman SantosHemoglobin (Bld) [Mass/Vol]14.7 g/rGYurkwz72.0-18.0The [facility] CincinnatiComment on above:Performed By: #### TSH, URIC, CMP #### [facility] [address] [place] [address] Dr. Sherman Toledo #0.01 10e3/ulNormal0.00-0.03The [facility] CincinnatiComment on above:Performed By: #### TSH, URIC, CMP #### [facility] [address] [place] [address] Dr. Sherman Toledo %0.2 %Normal0.0-0.5The [facility] CincinnatiComment on above: Performed By: #### TSH, URIC, CMP #### [facility] [address] [place] [address] Dr. Sherman Yeager #1.5 103/ulNormal1.2-3.8The [facility] CincinnatiComment on above:Performed By: #### TSH, URIC, CMP #### [facility] [address] [place] [address] Dr. Sherman Hernandezhocytes/100 WBC (Bld)30.5 %Suslrj69.5-60.0The [facility] on above:Performed By: #### TSH, URIC, CMP #### [facility] [address] [place] [address] Dr. Sherman MoUAL DIFF REQNONormalThe [facility] CincinnatiComment on above: Performed By: #### TSH, URIC, CMP #### [facility] [address] [place] [address] Dr. Sherman House (RBC) [Entitic mass]32.5 mbBrysvo30.9-34.0The [facility] CincinnatiComment on above:Performed By: #### TSH, URIC, CMP #### [facility] [address] [place] [address] Dr. Sherman Mckenzie (RBC) [Mass/Vol]33.6 g/pEIukzpv04.9-35.2The [facility] CincinnatiComment on above:Performed By: #### TSH, URIC, CMP #### [facility] [address] [address] [address] Sherman Mckenzie (RBC) [Entitic vol]96.7 fLCritically high80.0-94.0The [facility] HospitalComment on above:Performed By: #### TSH, URIC, CMP #### [facility] [address] [address] [address] Sherman Freeman #0.9 103/ulCritically high0.3-0.8The [facility] Comment on above:Performed By: #### TSH, URIC, CMP #### [facility] [address] [place] [address] Dr. Sherman Pradhanocytes/100 WBC (Bld)18.0 %Critically high1.7-12.0The [facility] CincinnatiComment on above:Performed By: #### TSH, URIC, CMP #### [facility] [address] [address] [address] Sherman Buck #2.4 103/ulNormal1.4-6.5The [facility] CincinnatiComment on above:Performed By: #### TSH, URIC, CMP #### [facility] [address] [address] [address] Sherman Crawleyutrophils/100 WBC (Bld)46.9 %Wnbxfr61.0-75.0The [facility] CincinnatiComment on above:Performed By: #### TSH, URIC, CMP #### [facility] [address] [address] [address] Sherman Izquierdolet mean volume (Bld) [Entitic vol]9.0 fLCritically low 9.5-13.5The [facility] CincinnatiComment on above:Performed By: #### TSH, URIC, CMP #### [facility] [address] [place] [address] Dr. Sherman LlanosT289 103/moVhxjle546-098UaqKindred Healthcarement on above: Performed By: #### TSH, URIC, CMP #### [facility] [address] [address] [address] Sherman SantosRBC4.52 106/ulCritically low4.70-6.10The [facility] CincinnatiCommclaren [facility] region on above:Performed By: #### TSH, URIC, CMP #### [facility] [address] [address] [address] Sherman SantosWBC5.0 103/ulNormal4.0-11.0The [facility] CincinnatiCommclaren [facility] region on above: Performed By: #### TSH, URIC, CMP #### [facility] [address] [place] [address] Dr. Sherman SantosCT LUNG CANCER SCREENINGon 98-01-1449GK LUNG CANCER SCREENING EXAMINATION: CT LUNG CANCER [...] Electronically authenticated by: CARLOS HOLLOWAY Date: 2022-01-12 19:43NoUniversity Hospitals Geauga Medical CenterPROF 14(COMP METB)on 89-18-3355Narfzmh [Mass/Vol]4.1 g/dLNormal 3.4-5.0The [facility] CincinnatiComment on above:Performed By: #### TSH, URIC, CMP #### [facility] [address] [place] [address] Dr. Sherman SantosAlbumin/Globulin [Mass ratio]1.1 {ratio}NormalThe [facility] CincinnatiComment on above:Performed By: #### TSH, URIC, CMP #### [facility] [address] [place] [address] Dr. Sherman Lyons [Catalytic activity/Vol]88 U/AEgxblb92-143Pda [facility] CincinnatiComment on above:Performed By: #### TSH, URIC, CMP #### [facility] [address] [place] [address] Dr. Sherman Dee [Catalytic activity/Vol]42 U/UJtzldh25-39Moa [facility] CincinnatiComment on above:Performed By: #### TSH, URIC, CMP #### [facility] [address] [place] [address] Dr. Sherman Cano gap [Moles/Vol]9.5 mmol/LNormalThe [facility] CincinnatiComment on above:Performed By: #### TSH, URIC, CMP #### [facility] [address] [place] [address] Dr. Sherman Vogel [Catalytic activity/Vol]29 U/AEbhmbv19-28Ckx [facility] CincinnatiComment on above:Performed By: #### TSH, URIC, CMP #### [facility] [address] [place] [address] Dr. Sherman SantosBilirubin [Mass/Vol]0.4 mg/dLNormal0.2-1.0The [facility] Comment on above:Performed By: #### TSH, URIC, CMP #### [facility] [address] [place] [address] Dr. Sherman SantosCalcium [Mass/Vol]9.4 mg/dLNormal8.5-10.1The [facility] Comment on above:Performed By: #### TSH, URIC, CMP #### [facility] [address] [place], [place] [address] Dr. Sherman SantosChloride [Moles/Vol]101 mmol/HDemgkm40-102Cqu [facility] Comment on above:Performed By: #### TSH, URIC, CMP #### [facility] [address] [place] [address] Dr. Sherman SantosCO2 [Moles/Vol]30.4 mmol/QQzqvvd28.0-32.0The [facility] Comment on above:Performed By: #### TSH, URIC, CMP #### [facility] [address] [place] [address] Dr. Sherman SantosCreatinine [Mass/Vol]0.94 mg/dLNormal0.70-1.30The [facility] CincinnatiComment on above:Performed By: #### TSH, URIC, CMP #### [facility] [address] [place] [address] Dr. Whitaker ChangEGFR-AF CITIZ[place]>60Normal>=60The [facility] CincinnatiComment on above:Performed By: #### TSH, URIC, CMP #### [facility] [address] [place] [address] Dr. Sherman RomeroGFR-NON AF [place]IZ[place]>60Normal>=60The [facility] CincinnatiComment on above:Performed By: #### TSH, URIC, CMP #### [facility] [address] [place] [address] Dr. Sherman SantosGlobulin (S) [Mass/Vol]3.9 g/dLNormalThe [facility] CincinnatiComment on above:Performed By: #### TSH, URIC, CMP #### [facility] [address] [place] [address] Dr. Sherman SantosGlucose [Mass/Vol]95 mg/iFPepjsa22-579Eqf [facility] Comment on above:Performed By: #### TSH, URIC, CMP #### [facility] [address] [place] [address] Dr. Sherman SantosPotassium [Moles/Vol]3.9 mmol/LNormal3.5-5.1The [facility] Comment on above:Performed By: #### TSH, URIC, CMP #### [facility] [address] [address] [address] Sherman SantosProtein [Mass/Vol]8.0 g/dLNormal6.4-8.2The [facility] Comment on above:Performed By: #### TSH, URIC, CMP #### [facility] [address] [place] [address] Dr. Sherman Adamsum [Moles/Vol]137 mmol/SDwjqxq161-144Rhe [facility] Comment on above:Performed By: #### TSH, URIC, CMP #### [facility] [address] [place] [address] Dr. Sherman SantosUrea nitrogen [Mass/Vol]12.0 mg/dLNormal7.0-18.0The [facility] CincinnatiComment on above:Performed By: #### TSH, URIC, CMP #### [facility] [address] [place] [address] Dr. Sherman Molina nitrogen/Creatinine [Mass ratio]12.8 mg/mgNormalThe [facility] CincinnatiComment on above:Performed By: #### TSH, URIC, CMP #### [facility] [address] [place] [address] Dr. Sherman Haynes RANDOM URINEon 58-55-7181Ushesh (U) [Moles/Vol]65 mmol/L Dpxdwe76-58Bpb [facility] CincinnatiComment on above:Performed By: #### OSMO #### [facility] [address] [place] [address] Dr. Sherman AcuñaHomadina 18-12-9696AME4.912 uIU/mLNormal0.358-3.740The [facility] CincinnatiComment on above:Performed By: #### TSH, URIC, CMP #### [facility] [address] [place] [address] Dr. Sherman SantosURIC ACID SERUMon 48-61-4585Bklbv [Mass/Vol]5.1 mg/dLNormal 3.5-7.2The [facility] CincinnatiComment on above:Performed By: #### TSH, URIC, CMP #### [facility] [address] [place] [address] 80-05-5386Jvlzivfab From: Matt Stevens To: [facility] - Reminders/Recalls; Sent: 11/19/2021 10:05:02 EDT Show up: 08/26/2028 10:04:00 EDT Subject: colonoscopy reminder Due Date/Time: 09/23/2028 10:04:00 EDT Reminder/Recall 5 year colonoscopy reminder(2026)[facility] CenterCoding Summary.on [id number] Summary. CD:[id number] [file] IGNv (more content not included)...[facility] IntraOperative Documentson [id number] Documents [id number]:127[facility] CenterMain OR Intraoperative Recordon 62-97-2041Kklj OR Intraoperative Record IntraOp Document Type FT Summary Primary Physician: Marlys LOPEZ MD Finalized Date/Time: 09/29/21 12:13:49 Pt. Name: DAI العلي/Sex: 1945 Male Med Rec #: [id number] Physician: Marlys LOPEZ MD Financial #: [id number] Pt. Type: O Room/Bed: / Admit/Disch: 09/23/21 [...] Anesthesiologist Scrub - Primary Surgeon - Primary Field Clinical Engineer Time In 09/23/21 12:28:00 09/23/21 12:36:00 09/23/21 [...] See RN Role Performed Scrub - Primary Performance Analyst - Primary Time In 09/23/21 12:28:00 09/23/21 [...] (If Applicable) PreOp Antibiotic No Time Out Ryna FULLER, Sofy M, Given Participants Marlys LOPEZ [...] and tissue Entry 1 Skin Integrity Intact, [place], Warm, and Skin Abnormality No Dry Outcomes Met? Yes Last Modified By: Mayi Ness RN 06/29/22 12:33:30 Post-Care Text: The patient is free from signs and symptoms of injury caused by extraneous objects Patient Positioning FT Pre-Care Text: Identifies physical alterations that require additional preca (more content not included)...[facility] CenterProess Note-Physicianon 91-71-8531Wcpqpqce Note-PhysicianPatient: DAI العلي Age: 76 years Sex: Male : 1945 Associated Diagnoses: None Author: Michael Chanel Jr, DO Postoperative Information Post Operative Note: Post Anesthesia Care Unit. Anesthetic utilized: Monitored anesthesia care. Health Status Allergies: Allergic Reactions (Selected) No Known Allergies Problem list: All Problems Anemia / SNOMED CT 350100711 / Confirmed Essential hypertension / SNOMED CT 59495052 / Confirmed Familial hypercholesterolemia / SNOMED CT 5613598017 / Confirmed Hyponatremia / SNOMED CT 962918014 / Confirmed Lung nodules / SNOMED CT 6168628587 / Confirmed BPH associated with nocturia / SNOMED CT 5510769958 / Confirmed Current smoker / SNOMED CT 361967687 / Confirmed Physical Examination Vital Signs 09/23/2021 [...] nausea and vomiting. Plan Transfer/ Discharge: Condition stable.[facility] CenterComment on above:Result Comment: Electronically Signed By: Michael Chanle Jr, DO\.br\Date and Time Signed: 09/29/21 16:30 [...] pharmacy to sent to patient's home in [place]., [facility], [address], cm, 09/03/21 13:11:00 EDT, [...] list: All Problems Anemia / SNOMED CT 073400896 / Confirmed Essential hypertension / SNOMED CT 13401087 / Confirmed Familial hypercholesterolemia / SNOMED CT 3806001542 / Confirmed Hyponatremia / SNOMED CT 674750894 / Confirmed Lung nodules / SNOMED CT 4011739201 / Confirmed BPH associated with nocturia / SNOMED CT 9544279400 / Confirmed Current smoker / SNOMED CT 780553461 / Confirmed Histories Past Medical History: Active Hyponatremia (438966666) Lung nodules (7160092699) BPH associated with nocturia (7541573221) Current smoker (157871767) Social History Social & Psychosocial Habits Tobacco 09/03/2021 Tobacco Use: 10 or more cigarettes (1/ . Physical Examination Airway: Mallampati classification: II (soft palate, fauces, uvula visible). Respiratory: Lungs are clear to auscultation. Cardiovascular: Regular rhythm. Neurologic: Alert, Oriented. Plan [place] [employer] Anesthesiologists (ASA) physical status classification: Class II. Anesthetic Preoperative Plan Anesthesia: General. . Anesthetic plan, risks, benefits, and alternatives discussed with the patient and/or family. Communication: face to face with (patient 5 minutes, Patient educated on smoking cesstation).[facility] CenterComment on above:Result Comment: Electronically Signed By: Michael Chanel Jr, DO\.ely\Date and Time Signed: 09/29/21 07:59 EDTPostoperative Documentson 09-25-2021 Postoperative [id number]#1.00CD:127 [facility] CenterConsenton 47-14-1171Tlvxhxi [id number]#1.00CD:127[facility] CenterDischarge Instructionson 69-99-5665Kpuvghvtt Instructions [id number]#1.00CD:127[facility] CenterIntraOperative Documentson 74-91-5430NepyyDomgrdszx Documents [id number]#1.00CD:127[facility] CenterIntraOperative Documents [id number]#1.00CD:127[facility] CenterConsent for Treatmenton 92-20-6528Vlvswzc for Treatment [id number]#1.00CD:127[facility] CenterEndoscopic Procedure Report - Otheron 82-42-2185Bitixlcksm Procedure Report - OtherPatient: DAI العلي Age: [...] current medications. Return to activities:: After 24 hours.[facility] CenterComment on above:Result Comment: Electronically Signed By: Marlys LOPEZ MD\.br\Date and Time Signed: 09/23/21 12:52 EDTOther Comment: Missing Attachment - attachment storage system not supported [id number] Can be viewed in source systemMissing Attachment - attachment storage system not supported [id number] Can be viewed in source systemEndoscopic Procedure [...] report. 2. GI clinic follow-up in 2 weeksAshtabula County Medical CenterComment on above:Result Comment: Electronically Signed By: JOHN BROCK, Marlys\.br\Date and Time Signed: 09/23/21 12:40 EDTOther Comment: Missing Attachment - attachment storage system not supported [id number] Can be viewed in source systemMissing Attachment - attachment storage system not supported [id number] Can be viewed in source systemMissing Attachment - attachment storage system not supported [id number] Can be viewed in source systemMissing Attachment - attachment storage system not supported [id number] Can be viewed in source systemInpatient Patient Summaryon 07-09-2141Meqcpaldp Patient Summary [address] [address] [facility] Clinical Discharge Instructions PERSON INFORMATION Name: DAI العلي PHYSICIANS Admitting Physician: Marlys LOPEZ MD Attending Physician: Marlys LOPEZ MD PCP: SHAY ROCA DO Discharge Diagnosis: Anemia Comment: PATIENT EDUCATION INFORMATION Instructions: Esophagitis; Upper Endoscopy, Adult, Care After; Diverticulosis; Colon Polyps; Colonoscopy, Care After Surgery John (Custom) Medication Leaflets: Follow up: With: Address: When: Marlys LOPEZ [address] [place] [address]. [address] [place], [place] [phone] Business (1) Comments: Call for any problems. Office will call you if follow up is needed. MEDICATION LIST New Medications [facility], [address] [phone], [phone] omeprazole (omeprazole 40 mg Cap-DR) 1 Capsules [...] sodium chloride (sodium chloride 1 g Tab) Comment:NormalFishJohns Hopkins HospitalMain OR PACU I Recordon 56-25-9137Opai OR PACU I RecordPACU Phase I Document Type FT Summary Primary Physician: Marlys LOPEZ MD Finalized Date/Time: 09/23/21 13:39:44 Pt. Name: DAI العلي Neha/Sex: 1945 Male Med Rec #: [id number] Physician: Marlys LOPEZ MD Financial #: [id number] Pt. Type: O Room/Bed: / Admit/Disch: 09/23/21 [...] Signatures Signed By: Laura Gross RN 09/23/21 13:39NormalBellevue HospitalMain OR Preoperative Recordon 76-92-7172Rxkk OR Preoperative RecordHolding Area Document Type FT Summary Primary Physician: Marlys LOPEZ MD Finalized Date/Time: 09/23/21 11:49:54 Pt. Name: SACHA DAI OsunaO.B./Sex: 1945 Male Med Rec #: [id number] Physician: Marlys LOPEZ MD Financial #: [id number] Pt. Type: O Room/Bed: / Admit/Disch: 09/23/21 [...] Signatures Signed By: Kenny Burris RN 09/23/21 11:49NoParkwood HospitalMonitor Recordon 01-74-4360Lietrci Record [id number]#1.00CD:127NoParkwood HospitalOutpatient Surgery Discharge Instructionon 06-21-0554Xemgreevvq Surgery Discharge Instruction [place] [id number] Patient Discharge Instructions PERSON INFORMATION Name: DAI [...] Follow up: With: Address: When: Marlys LOPEZ [address] [place], [place] [address]joon. [address] [place] [phone] Business (1) Comments: Call for any problems. Office will call you if follow up is needed. Pharmacy Information: [facility]div[facility] You may receive a survey from [employer] asking you to rate your care experience. Your feedback is important and will help us understand what we do well and how we can improve the quality of care we provide to you, your loved ones and our community. It?s an honor to serve you. Thank you for choosing [facility] HERE ARE THE MEDICATION CHANGES THAT OCCURRED DURING YOUR HOSPITAL STAY New Medications [facility], [address] [phone], [phone] omeprazole (omeprazole 40 mg Cap-DR) 1 Capsules [...] ? A test t (more content not included)...[facility] Patient Education - Texton 74-05-8973Cjmvhqx Education - TextColonoscopy Care After Surgery Please [...] these instructions at home: Medicines ? Take lztm-wkc-lhcncrw and prescription medicines only as told by [...] and drinking (Inserted Image. (more content not included)...[facility] Consent for Procedure/Surgeryon 44-04-2782Fmggbyp for Procedure/Surgery [id number]#1.00CD:127[facility] CenterPatient Correspondenceon 71-50-3307Buopbvt Correspondence [id number]#1.00CD:127[facility] CenterAmbulatory Visit Summaryon 32-88-3696Nalgpzcakk Visit Summary DAI العلي :1945 Visit Date:09/03/2021 [...] Follow-Up Appointments Tuesday 12:20 PM EDT Where: [facility] Surgical Services Medications What How Much [...] Essential hypertension Familial hypercholesterolemia Hyponatremia Lung nodules [facility] CenterGastroenterology Office/Clinic Noteon 57-87-2623Cstmdcojvlnladlc Office/Clinic NoteChief Complaint anemia 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 Review of Systems PHQ Score Initial [...] after patient or guardian consented to allow [employer] to record this visit. ALISON paid search specialist and provider reviewed before signing. ALISON: [...] Date Status influenza virus vaccine, inactivated 10/2020 RecordedNoParkwood HospitalComment on above:Result Comment: Electronically Signed By: Marlys LOPEZ MD\.br\Date and Time Signed: 09/03/21 14:17 EDT\.br\Electronically Co-Signed By: Alexandria Rodriguez\.br\Date and Time Co-Signed: 09/03/21 14:16 EDTCBC AUTO DIFFon 73-77-8595BQBX #0.1 103/ulNormal0.0-0.1The [facility] - CincinnatiComment on above:Performed By: #### TSH, URIC, CMP #### [facility] [address] [address] [address] Sherman SantosBasophils/100 WBC (Bld)0.8 %Normal0.2-2.0The [facility] Comment on above:Performed By: #### TSH, URIC, CMP #### [facility] [address] [place] [address] Dr. Sherman Cevallos #0.3 103/ulNormal0.0-0.7The [facility] - CincinnatiComment on above: Performed By: #### TSH, URIC, CMP #### [facility] [address] [address] [address] Sherman Romeroosinophils/100 WBC (Bld)4.9 %Normal0.9-7.0The [facility] Comment on above:Performed By: #### TSH, URIC, CMP #### [facility] [address] [place] [address] Dr. Sherman Romerorythrocyte distribution width (RBC) [Ratio]12.3 %Xywnuo08.0-15.0 The [facility] CincinnatiComment on above:Performed By: #### TSH, URIC, CMP #### [facility] [address] [place] [address] Dr. Sherman SantosHematocrit (Bld) [Volume fraction]44.5 %Gdfzno12.0-54.0The [facility] Hospitalment on above:Performed By: #### TSH, URIC, CMP #### [facility] [address] [place] [address] Dr. Sherman SantosHemoglobin (Bld) [Mass/Vol]14.5 g/kLVgrjgj21.0-18.0The [facility] Hospitalment on above:Performed By: #### TSH, URIC, CMP #### [facility] [address] [place] [address] Dr. Sherman Toledo #0.02 10e3/ulNormal0.00-0.03The [facility] on above:Performed By: #### TSH, URIC, CMP #### [facility] [address] [place] [address] Dr. Sherman Toledo %0.3 %Normal0.0-0.5The [facility] on above: Performed By: #### TSH, URIC, CMP #### [facility] [address] [place] [address] Dr. Sherman Yeager #2.1 103/ulNormal1.2-3.8The [facility] on above:Performed By: #### TSH, URIC, CMP #### [facility] [address] [place] [address] Dr. Sherman Hernandezhocytes/100 WBC (Bld)34.7 %Enyvzm36.5-60.0The [facility] Hospitalment on above:Performed By: #### TSH, URIC, CMP #### [facility] [address] [place] [address] Dr. Sherman MoUAL DIFF REQNONormalThe [facility] - CincinnatiComment on above: Performed By: #### TSH, URIC, CMP #### [facility] [address] [place] [address] Dr. Sherman Mckenzie (RBC) [Entitic mass]32.7 wnZxqtfi29.9-34.0The [facility] CincinnatiComment on above:Performed By: #### TSH, URIC, CMP #### [facility] [address] [address] [address] Sherman Mckenzie (RBC) [Mass/Vol]32.6 g/rXOmspte77.9-35.2The [facility] HospitalComment on above:Performed By: #### TSH, URIC, CMP #### [facility] [address] [address] [address] Sherman Mckenzie (RBC) [Entitic vol]100.2 fLCritically high80.0-94.0The [facility] CincinnatiComment on above:Performed By: #### TSH, URIC, CMP #### [facility] [address] [place] [address] Dr. Sherman Freeman #0.9 103/ulCritically high0.3-0.8The [facility] Comment on above:Performed By: #### TSH, URIC, CMP #### [facility] [address] [address] [address] Sherman Pradhanocytes/100 WBC (Bld)14.6 %Critically high1.7-12.0The [facility] CincinnatiComment on above:Performed By: #### TSH, URIC, CMP #### [facility] [address] [address] [address] Sherman Buck #2.7 103/ulNormal1.4-6.5The [facility] CincinnatiComment on above:Performed By: #### TSH, URIC, CMP #### [facility] [address] [address] [address] Sherman Crawleyutrophils/100 WBC (Bld)44.7 %Gxkivz07.0-75.0The [facility] CincinnatiComment on above:Performed By: #### TSH, URIC, CMP #### [facility] [address] [address] [address] Sherman Izquierdolet mean volume (Bld) [Entitic vol]9.6 fLNormal9.5-13.5The [facility] on above:Performed By: #### TSH, URIC, CMP #### [facility] [address] [place] [address] Dr. Sherman LlanosT323 103/dlDatzts809-832Ujb [facility] on above: Performed By: #### TSH, URIC, CMP #### [facility] [address] [place] [address] Dr. Sherman SantosRBC4.44 106/ulCritically low4.70-6.10The [facility] on above:Performed By: #### TSH, URIC, CMP #### [facility] [address] [place] [address] Dr. Sherman SantosWBC6.0 103/ulNormal4.0-11.0The [facility] on above: Performed By: #### TSH, URIC, CMP #### [facility] [address] [place] [address] Dr. Sherman SantosLIPID PROFILEon 33-85-6374HXZD-HDL RATIO NORMSEE [facility] on above:Result Comment: 3.3 - 4.4 LOW RISK 4.4 - 7.1 AVERAGE RISK 7.1 - 11.0 MODERATE RISK >11.0 HIGH RISKPerformed By: #### OSMO #### [facility] [address] [place] [address] Dr. Sherman SantosCholesterol [Mass/Vol]253 mg/dLCritically high<=200The [facility] on above:Performed By: #### OSMO #### [facility] [address] [place] [address] Dr. Sherman SantosCholesterol in HDL [Mass/Vol]42 mg/vSPezwva75-20[facility] on above:Performed By: #### OSMO #### [facility] [address] [place] [address] Dr. Sherman Justinesterol in LDL [Mass/Vol]156.8 mg/dLDetwiler Memorial Hospitalment on above:Performed By: #### OSMO #### [facility] [address] [place] [address] Dr. Sherman SantosCholesterol.total/Cholesterol in HDL [Mass ratio]6.0 {ratio} NormalThe [facility] on above:Performed By: #### OSMO #### [facility] [address] [place] [address] Dr. Sherman Rees NORMAL> or = 60 mg/dl - LOW CARDIOVASCULAR RISK <40 mg/dl - HIGH CARDIOVASCULAR RISKOhioHealth Pickerington Methodist Hospital on above:Performed By: #### OSMO #### [facility] [address] [place] [address] Dr. Sherman SantosLDL CALC NORMALSEE BELOWOhioHealth Pickerington Methodist Hospital on above:Result Comment: <100 mg/dl OPTIMAL 100 - 129 mg/dl NEAR OR ABOVE OPTIMAL 130 - 159 mg/dl BORDERLINE HIGH 160 - 189 mg/dl HIGH >190 mg/dl VERY HIGH Performed By: #### OSMO #### [facility] [address] [place] [address] Dr. Sherman SantosTriglyceride [Mass/Vol]271 mg/dLCritically high<=150[facility] on above:Performed By: #### OSMO #### [facility] [address] [place] [address] Dr. Sherman SantosVLDL CALC54.2 mg/dLNoUniversity Hospitals Geauga Medical CenterCommclaren bay region on above: Performed By: #### OSMO #### [facility] [address] [place] [address] Dr. Sherman SantosPROF 14(COMP METB)on 80-13-6254Afopioq [Mass/Vol]4.5 g/dLNormal 3.4-5.0[facility] on above:Performed By: #### TSH, CMP, LIPID, T4 #### [facility] [address] [place] [address] Dr. Sherman SantosAlbumin/Globulin [Mass ratio]1.2 {ratio}NormalThe Yariel HospitalComment on above:Performed By: #### TSH, CMP, LIPID, T4 #### [facility] [address] [address] [address] Sherman Lyons [Catalytic activity/Vol]91 U/CHgqlak22-076Gqh [facility] - CincinnatiComment on above:Performed By: #### TSH, CMP, LIPID, T4 #### [facility] [address] [place] [address] Dr. Sherman Dee [Catalytic activity/Vol]53 U/BIxawcb56-67Exm [facility] CincinnatiComment on above:Performed By: #### TSH, CMP, LIPID, T4 #### [facility] [address] [place] [address] Dr. Sherman Cano gap [Moles/Vol]16.7 mmol/LNormalThe [facility] Comment on above:Performed By: #### TSH, CMP, LIPID, T4 #### [facility] [address] [place] [address] Dr. Sherman SantosAST [Catalytic activity/Vol]42 U/LCritically lfvx82-19Vzi [facility] CincinnatiComment on above:Performed By: #### TSH, CMP, LIPID, T4 #### [facility] [address] [place] [address] Dr. Sherman SantosBilirubin [Mass/Vol]0.7 mg/dLNormal0.2-1.0The [facility] Comment on above:Performed By: #### TSH, CMP, LIPID, T4 #### [facility] [address] [place] [address] Dr. Sherman SantosCalcium [Mass/Vol]9.4 mg/dLNormal8.5-10.1[facility] Comment on above:Performed By: #### TSH, CMP, LIPID, T4 #### [facility] [address] [place] [address] Dr. Sherman SantosChloride [Moles/Vol]93 mmol/LCritically xuu34-608Blr [facility] CincinnatiComment on above:Performed By: #### TSH, CMP, LIPID, T4 #### [facility] [address] [place] [address] Dr. Sherman SantosCO2 [Moles/Vol]24.2 mmol/HMhoznh99.0-32.0The [facility] Comment on above:Performed By: #### TSH, CMP, LIPID, T4 #### [facility] [address] [address] [address] Sherman SantosCreatinine [Mass/Vol]0.85 mg/dLNormal0.70-1.30The [facility] CincinnatiComment on above:Performed By: #### TSH, CMP, LIPID, T4 #### [facility] [address] [address] [address] Sherman RomeroGFR-AF CITIZEN OF [place]>60Normal>=60The [facility] - CincinnatiComment on above:Performed By: #### TSH, CMP, LIPID, T4 #### [facility] [address] [address] [address] Sherman RomeroGFR-NON AF CITIZEN OF [place]>60Normal>=60The [facility] CincinnatiComment on above:Performed By: #### TSH, CMP, LIPID, T4 #### [facility] [address] [address] [address] Sherman SantosGlobulin (S) [Mass/Vol]3.6 g/dLNormalThe [facility] CincinnatiComment on above:Performed By: #### TSH, CMP, LIPID, T4 #### [facility] [address] [address] [address] Sherman SantosGlucose [Mass/Vol]71 mg/dLCritically hun82-212Dfo [facility] Hospitalment on above:Performed By: #### TSH, CMP, LIPID, T4 #### [facility] [address] [address] [address] Sherman SantosPotassium [Moles/Vol]4.9 mmol/LNormal3.5-5.1The [facility] Comment on above:Performed By: #### TSH, CMP, LIPID, T4 #### [facility] [address] [address] [address] Sherman SantosProtein [Mass/Vol]8.1 g/dLNormal6.4-8.2The [facility] Comment on above:Performed By: #### TSH, CMP, LIPID, T4 #### [facility] [address] [address] [address] Sherman SantosSodium [Moles/Vol]129 mmol/LCritically uys923-471Grq [facility] CincinnatiComment on above:Performed By: #### TSH, CMP, LIPID, T4 #### [facility] [address] [place] [address] Dr. Sherman Molina nitrogen [Mass/Vol]14.0 mg/dLNormal7.0-18.0The [facility] CincinnatiComment on above:Performed By: #### TSH, CMP, LIPID, T4 #### [facility] [address] [place] [address] Dr. Sherman Molina nitrogen/Creatinine [Mass ratio]16.5 mg/mgNoUniversity Hospitals Geauga Medical CenterComment on above:Performed By: #### TSH, CMP, LIPID, T4 #### [facility] [address] [place] [address] Dr. Sherman Saldaña4on 59-62-7253L4 [Mass/Vol]6.30 ug/dLNormal4.50-12.10The [facility] CincinnatiComment on above:Performed By: #### OSMO #### [facility] [address] [place] [address] Dr. Sherman Benavides 12-45-2884AKJ4.809 uIU/mLNormal0.358-3.740The [facility] CincinnatiComment on above:Performed By: #### OSMO #### [facility] [address] [place] [address] Dr. Sherman [facility]abala [facility] BELOWSouthwest General Health CenterComment on above: Result Comment: <0.34 UIU/ml HYPERTHYROID 0.34-5.60 UIU/ml EUTHYROID >5.60 UIU/ml HYPOTHYROIDPerformed By: #### OSMO #### [facility] [address] [place] [address] Dr. Sherman Rangel Referralon 08-26-5186Icwohiqyl Referral [id number]#1.00CD:127[facility] Vital Signs Date TimeVital SignValuePerforming HinzxzodcWlhcikrs66-29-5641 09:19-0500Body zgxoua051.34 cmBenjamin Ball DO Work Phone: [phone])[address] [place], [place] [address]-06-2025 09:19-0500 Body mass index (BMI) [Ratio]23.9 kg/m8Hxxmnlxo Ball DO Work Phone: [phone])[address] [place], [place] [address]-06-2025 09:19-0500 Body .79 kgBenjamin Ball DO Work Phone: [phone])[address] [place], [place] [address]-06-2025 09:19-0500 Diastolic blood ecikcyst20 mm[Hg]Shay Ball DO Work Phone: [phone])[address] [place], [place] [address]-06-2025 09:19-0500 Diastolic blood alzciejt27 mm[Hg]Shay Ball DO Work Phone: 1(628)[address] [place], [place] [address]-06-2025 09:19-0500 Heart rate80 /minBenjamin Ball DO Work Phone: 1(554)[address] [place], [place] [address]-06-2025 09:19-0500 Respiratory rate12 /minBenjamin Ball DO Work Phone: [phone])[address] [place], [place] [address]-06-2025 09:19-0500 Systolic blood uvjcjfna620 mm[Hg]Shay Ball DO Work Phone: 1(259)[address] [place], [place] [address]-06-2025 09:19-0500 Systolic blood zslzmnge235 mm[Hg]Shay Ball DO Work Phone: 1(741)[address] [place], [place] [address]-31-2025 08:50-0400 Body .34 cmBenjamin Ball DO Work Phone: [phone] [place], [place] [address]-31-2025 08:50-0400 Body mass index (BMI) [Ratio]24 kg/y2Cfqpaact Ball DO Work Phone: [facility]07-31-2025 08:50-0400 Body .07 kgBenjamin Ball DO Work Phone: [facility]07-31-2025 08:50-0400 Diastolic blood aodbvfwo61 mm[Hg]Shay Ball DO Work Phone: [phone]07-31-2025 08:50-0400 Heart rate72 /minBenjamin Ball DO Work Phone: [phone]07-31-2025 08:50-0400 Respiratory rate12 /minBenjamin Ball DO Work Phone: [phone]07-31-2025 08:50-0400 Systolic blood olaigldx836 mm[Hg]Shay Ball DO Work Phone: [phone] [place], [place] [address]506-13-2025 14:12-0400 Body aghwph858.3 cmNicholas Brown DPM Work Phone: [facility] CareRuhafqimov41-43-0292 14:12-0400Body mass index (BMI) [Ratio]23.71 kg/c3Tewxvkrz Brown DPM Work Phone: [facility] CareIiiwfhkhik58-72-0720 14:12-0400Body kktkce34.11 kgNicholas Brown DPM Work Phone: [facility] CareEwimjhepkq20-61-0112 14:12-0400Respiratory rate16 /minNicholas Brown DPM Work Phone: [phone]2025 10:24-0400Body idhcqg306.34 cmBenjamin Ball DO Work Phone: [phone]2025 10:24-0400 Body mass index (BMI) [Ratio]24.8 kg/n7Xiryazyk Ball DO Work Phone: [phone]2025 10:24-0400 Body qgoymp57.73 kgBenjamin Ball DO Work Phone: [facility]04-16-2025 15:00-0400 Body acrqdt375.3 cmJacobo Brown DPM Work Phone: [facility] CareXfisexdncy61-03-8297 15:00-0400Body mass index (BMI) [Ratio]23.71 kg/t3Nbmapbzlnohemy Brown DPM Work Phone: [facility] CareScyxdijdco23-28-2981 15:00-0400Body awsezn12.11 kgJacobo Brown DPM Work Phone: [facility] CareAshxrruhwx66-69-7351 15:00-0400Respiratory rate16 /Rahul Brown DPM Work Phone: [facility] CareZjljyppdrd70-00-2745 15:59-0400Body epvvxd919.3 cmJacobo Brown DPM Work Phone: [facility] CareFzmazxaqgl63-57-0915 15:59-0400Body mass index (BMI) [Ratio]23.71 kg/u6UykxdxpnJacobo Brown DPM Work Phone: [facility] CareGvhruvfdvy16-80-4102 15:59-0400Body vukupq99.11 kgJacobo Brown DPM Work Phone: [facility] CareZellbgxqwp64-17-2593 15:59-0400Respiratory rate16 /Rahul Brown DPM Work Phone: [facility] CareQcxxgqndbo76-96-1393 08:34-0400Body hcuncp672.34 [facility]25 08:34-0400Body mass index (BMI) [Ratio]24 kg/m2UbjgwhfwyOhio Valley Surgical Hospital03-18-2025 08:34-0400Body weight 78.18 kgOhio [facility]03-18-2025 08:34-0400Diastolic blood hvobxusx81 mm[Hg][facility]03-18-2025 08:34-0400Heart rate72 /[facility]03-18-2025 08:34-0400Respiratory rate12 /[facility]03-18-2025 08:34-0400Systolic blood wbzeehmr945 mm[Hg][facility]02-18-2025 08:39-0500Body .34 cm[facility]02-18-2025 08:39-0500Body mass index (BMI) [Ratio]24 kg/j6YebvtnzkxOhio Valley Surgical Hospital02-18-2025 08:39-0500Body vlxabn53.07 kgOhio [facility] Hospital02-18-2025 08:39-0500Diastolic blood qbdfedut48 mm[Hg][facility] 05-15-2024 08:39-0500Heart rate76 /[facility] 05-15-2024 08:39-0500Respiratory rate12 [facility] 05-15-2024 08:39-0500Systolic blood rdrzziiy157 mm[Hg][facility]12-11-2024 09:16-0500Body dycjsd882.34 cmOhio [facility]12-11-2024 09:16-0500Body mass index (BMI) [Ratio]24.3 kg/p8ItppqfmxuOhio Valley Surgical Hospital12-11-2024 09:16-0500Body ruvwtx39.09 [facility]12-11-2024 09:16-0500Diastolic blood vojvxrng70 mm[Hg] [facility]12-11-2024 09:16-0500Heart rate83 /[facility]12-11-2024 09:16-0500Respiratory rate12 [facility]12-11-2024 09:16-0500Systolic blood alsxhbva396 mm[Hg] [facility]11-06-2024 10:47-0500Body xgksqo168.3 cmAlex Garcia MD Work Phone: [facility] CareQpmlkbubrx76-10-7358 10:47-0500Body mass index (BMI) [Ratio]23.99 kg/e4TbvkfvAlex Garcia MD Work Phone: [facility] CareVytjjypczo54-29-1235 10:47-0500Body gwudnz33.02 Jamie Garcia MD Work Phone: [facility] CareDgecnrxvyz77-79-6883 10:47-0500Diastolic blood vchjmzev06 mm[Hg]Alex Garcia MD Work Phone: [facility] CareUqntiyjtet60-08-3726 10:47-0500Systolic blood zyihglij243 mm[Hg]Alex Garcia MD Work Phone: [facility] CareUmbtmpuujp67-71-7267 11:18-0400Body emejde257.34 [facility]10-29-2024 11:18-0400Body mass index (BMI) [Ratio]23.9 kg/r2OtmsypqprOhio Valley Surgical Hospital10-29-2024 11:18-0400Body gusuzu76.79 kgOhio [facility] Hospital10-29-2024 11:18-0400Diastolic blood chzedcsk32 mm[Hg][facility]10-29-2024 11:18-0400 Heart rate93 /[facility]10-29-2024 11:18-0400 Respiratory rate12 /[facility]10-29-2024 11:18-0400 Systolic blood rspcqelf407 mm[Hg][facility]08-12-2024 12:00-0400Body .34 cmOhio [facility] Hospital08-12-2024 12:00-0400Body mass index (BMI) [Ratio]23.8 kg/p2YuxflaudyOhio Valley Surgical Hospital08-12-2024 12:00-0400Body .73 kgOhio [facility] 11-07-2023 12:00-0400Diastolic blood khlewasx20 mm[Hg][facility]08-12-2024 12:00-0400Heart rate80 /[facility] 11-07-2023 12:00-0400Respiratory rate12 /[facility] 11-07-2023 12:00-0400Systolic blood owincjgi922 mm[Hg][facility]05-10-2024 08:52-0400Body nzkfgy109.34 cmOhio [facility]05-10-2024 08:52-0400Body mass index (BMI) [Ratio]23.7 kg/y3JevlibkdpOhio Valley Surgical Hospital05-10-2024 08:52-0400Body cmlhui86.16 [facility]05-10-2024 08:52-0400Diastolic blood tufzaoin36 mm[Hg] [facility]05-10-2024 08:52-0400Heart rate80 /[facility]05-10-2024 08:52-0400Respiratory rate12 /[facility]05-10-2024 08:52-0400Systolic blood karqgxyf601 mm[Hg] [facility]02-21-2024 14:31-0500Body owgiff138.34 cm [facility]02-21-2024 14:31-0500Body mass index (BMI) [Ratio]24.3 kg/n3NzbehppqeOhio Valley Surgical Hospital02-21-2024 14:31-0500Body .15 [facility]02-21-2024 14:31-0500Diastolic blood xufxtbuk08 mm[Hg][facility]02-21-2024 14:31-0500 Heart rate77 /[facility]02-21-2024 14:31-0500 Respiratory rate12 /[facility]02-21-2024 14:31-0500 Systolic blood amcfsuym327 mm[Hg][facility]01-11-2024 08:30-0500Body rwjiia333.34 cmOhio [facility]01-11-2024 08:30-0500Body mlkyph76.56 kgOhio [facility] Surgical Hospital01-11-2024 08:30-0500Diastolic blood utqxklsy31 mm[Hg][facility] 04-07-2023 08:30-0500Systolic blood isofqpwj410 mm[Hg][facility]10-09-2023 08:30-0400Body .34 cmBenjamin Ball Other [facility] CenterSim[facility] Other [id number] 08:30-0400Body mass index (BMI) [Ratio] 24.29 kg/t5Fqflzavb Ball Other [employer] Other 10-09-2023 08:30-0400Body jmrmji82.02 kgBenjamin Ball Other [employer] Other 10-09-2023 08:30-0400Diastolic blood zxynsgsi59 mm[Hg] Shay Ball Other [employer] Other 10-09-2023 08:30-0400Respiratory rate12 /minBenjamin Ball Other [employer] Other 10-09-2023 08:30-0400Systolic blood ykfawmcv502 mm[Hg] Shay Ball Other [employer] Other 04-27-2023 09:30-0400Body ultore814.34 cmBenjamin Ball Other [employer] Other 04-27-2023 09:30-0400Body mass index (BMI) [Ratio] 24.18 kg/r2Zndibsrw Ball Other [employer] Other 04-27-2023 09:30-0400Body zbdwea44.65 kgBenjamin Ball Other [employer] Other 04-27-2023 09:30-0400Diastolic blood mm[Hg] Shay Ball Other [employer] Other 04-27-2023 09:30-0400Respiratory rate12 /minBenjamin Ball Other [employer] Other 04-27-2023 09:30-0400Systolic blood mm[Hg] Shay Ball Other [employer] Other 03-30-2023 11:00-0400Body lcybmo029.34 cmThomas Olexa Other [employer] Other 03-30-2023 11:00-0400Body mass index (BMI) [Ratio] 24.27 kg/u3Akezyj Olexa Other [employer] Other 03-30-2023 11:00-0400Body trexlq99.93 kgThomas Olexa Other [employer] Other 01-24-2023 09:30-0500Body lveutm338.34 cmBenjamin Ball Other [employer] Other 01-24-2023 09:30-0500Body mass index (BMI) [Ratio] 24.35 kg/z0Vpwpymtt Ball Other [employer] Other 01-24-2023 09:30-0500Body .2 kgBenjamin Ball Other [employer] Other 01-24-2023 09:30-0500Diastolic blood mm[Hg] Shay Ball Other [employer] Other 01-24-2023 09:30-0500Respiratory rate12 /minBenjamin Ball Other [employer] Other 01-24-2023 09:30-0500Systolic blood mm[Hg] Shay Ball Other [employer] Other 06-29-2022 13:25-0400Blood Pressure LocationMaher SALAM [facility]06-29-2022 13:25-0400 Diastolic blood tlnkebrm74 mm[Hg]Frankel SALAM [facility]06-29-2022 13:25-0400Heart rate61 /minMaher SALAM [facility]06-29-2022 13:25-0400 Respiratory rate16 /minMaher SALAM [facility]06-29-2022 13:25-9185XkV0% (BldA) [Mass fraction]99 %Frankel SALAM [facility]06-29-2022 13:25-0400 Systolic blood qvqpzpxo964 mm[Hg]Frankel SALAM [facility]06-29-2022 13:10-0400Blood Pressure LocationMnher SALAM [facility]06-29-2022 13:10-0400 Diastolic blood pcehaivt25 mm[Hg]Frankel SALAM [facility]06-29-2022 13:10-0400Heart rate80 /minMaher SALAM [facility]06-29-2022 13:10-0400 Respiratory rate12 /minMaher SALAM [facility]06-29-2022 13:10-4083BdT1% (BldA) [Mass fraction]96 %Frnakel SALAM [facility]06-29-2022 13:10-0400 Systolic blood mm[Hg]Frankel SALAM [facility]06-29-2022 13:05-0400Blood Pressure LocationMnher SALAM [facility]06-29-2022 13:05-0400 Diastolic blood ncsegjhm92 mm[Hg]Frankel SALAM [facility]06-29-2022 13:05-0400Heart rate75 /minMaher SALAM [facility]06-29-2022 13:05-0400 Respiratory rate11 /minMaher SALAM [facility]06-29-2022 13:05-9029FeK6% (BldA) [Mass fraction]97 %Frankel SALAM [facility]06-29-2022 13:05-0400 Systolic blood naiqonfv710 mm[Hg][facility] SALAM [facility]06-29-2022 12:53-0400Body acykoopzcpt16.06 [degF]Frankel SALAM [facility]06-29-2022 11:55-0400Body tqmdrzmgcxa71.06 [degF]Frankel SALAM [facility]06-09-2022 13:09-0400Blood Pressure LocationMnher SALAM [phone]-ZzksvGal[facility] 06-09-2022 13:09-0400Diastolic blood ceguethi42 mm[Hg] [facility] SALAM [phone]-SsxwjGalion [facility] 06-09-2022 13:09-0400Heart rate78 /minMaher SALAM [phone]-JwmwwGalion [facility] 06-09-2022 13:09-0400Respiratory rate16 /minMaher SALAM [phone]-AfcyiGalion [facility] 06-09-2022 13:09-0400Systolic blood ugbsalgy770 mm[Hg] Marlys LOPEZ [phone]-UxfebGalion [facility] Hospital [facility] 06-09-2022 09:15-0400Body aejygm882.34 cmNikjaved Puckettarney Other [employer] Other 06-09-2022 09:15-0400Body mass index (BMI) [Ratio] 23.71 kg/n6SszmuzduRenee Lawrence Other [employer] Other 06-09-2022 09:15-0400Body sdxjfa12.11 kgJejaved Lawrence Other [employer] Other 11-04-2021 11:30-0400Body yytkqd667.34 cmThomas Olexa Other [employer] Other 11-04-2021 11:30-0400Body mass index (BMI) [Ratio] 24.96 kg/z6Bbfujm Olexa Other [employer] Other 11-04-2021 11:30-0400Body yhgiuk05.19 kgThomas Olexa Other [employer] Other Encounters Encounter DateEncounter TypeCare ProviderFacilityStart: 01-31-2025 End: 08-83-2447Yjprjor encounter procedureThomas Robyn Starkey MD-[facility] Work Phone: Start: 01-31-2025 End: 53-08-8408lxpsrtzqzlLcwgwivx Ball DO Work Phone: -[facility]Start: 01-31-2025 End: 57-23-6671bhwulzgsopTejazgqg Ball DO Work Phone: -[facility] ClinicStart: 01-31-2025 End: 34-50-2136Ojdzrsw encounter procedureBenjamin Ball DO-[facility] Work Phone: Start: 01-22-2025 End: 57-84-9587jekszsrwyqBxghgwvx Ball DO Work Phone: [phone]-[facility]hsift[facility] OrthopedicsStart: 01-22-2025 End: 02-13-4936Vqafhns encounter procedureHawa Starkey [facility] Work Phone: Start: 12-04-2024 End: 42-46-4616oxshrsfvjrUkzubmxk Ball DO Work Phone: [facility] Work Phone: Start: 12-04-2024 End: 46-45-6920Wjlrite encounter procedureHawa Starkey MDCounts Include [address] [facility] Work Phone: Start: 33-54-0946Njf-patient / Non-visitBenjamin Ball DO-[facility] Work Phone: Start: 10-25-2024 End: 27-59-4036kfrrifgmpiYiqyahqs Ball DO Work Phone: [facility] Work Phone: Start: 10-25-2024 End: 84-23-9572Qszilaf encounter procedureBenkennmin Ball DO-[facility] Work Phone: Start: 10-25-2024 End: 93-41-1342Yysuxpo encounter statusBenjamin Ball [facility] Administrationtart: 09-07-2024 End: 54-82-1778Cumspt outpatient visit 10 minutesJacobo Brown DPM Work Phone: [facility] [place] PODComment on above:Capsulitis of metatarsophalangeal (MTP) joint of right foot (Primary Dx); Hallux rigidus of right foot; DJD (degenerative joint disease), ankle and foot, right; Pain due to onychomycosis of toenails of both feetStart: 09-07-2024 End: 53-30-9734wexvyivbznVWOEGGBK A BROWNNot AvailableStart: 09-07-2024 End: 33-62-2639Ejyhrn flowsheetNicholas A Brown DPM Work Phone: [facility] [place] PODStart: 09-07-2024 End: 19-07-9667Syaouz flowsheetNicholas A Brown DPM Work Phone: noMS [place] PODStart: 09-04-2024 End: 71-52-5120fztdmyugqmButwoury Ball DO Work Phone: [facility] Work Phone: Start: 09-04-2024 End: 98-43-5083Qmrbcvn encounter procedureBenjamin Ball DO Work Phone: [facility] GroupCounts Include [address] Work Phone: Start: 07-11-2024 End: 51-88-9007Zskenk outpatient visit 15 minutesNicnohemy Brown DPM Work Phone: noMS [place] PODComment on above:Hallux rigidus of right foot (Primary Dx); Capsulitis of metatarsophalangeal (MTP) joint of right foot; DJD (degenerative joint disease), ankle and foot, rightStart: 07-11-2024 End: 05-98-1989hkyrqbxjyvWDXNUYIA Robyn BROWNNot AvailableStart: 07-11-2024 End: 21-27-9804Zlxkze flowsheetNicholas A Brown DPM Work Phone: [facility] [place] PODStart: 07-11-2024 End: 63-23-2534Xmsisd flowsheetNicholas A Brown DPM Work Phone: noMS [place] PODStart: 07-03-2024 End: 01-22-6285zyimkvphmbIshqolds Ball DO Work Phone: [facility] Work Phone: Start: 07-03-2024 End: 47-37-4434Xsknaiki ReferredShay Roca DO Work Phone: [facility] [address] Work Phone: start: 06-27-2024 End: 26-66-1995Yenpxz outpatient new 30 minutesJacobo Brown DPM Work Phone: [facility]oms [place] PODComment on above:DJD (degenerative joint disease), ankle and foot, right (Primary Dx); Hallux rigidus of right foot; Acquired deformity of right toe; Capsulitis of metatarsophalangeal (MTP) joint of right foot; Pain due to onychomycosis of toenails of both feetStart: 06-27-2024 End: 43-76-0483mfelffgurlRYWPIALF A BROWNNot AvailableStart: 06-12-2024 End: 46-48-1242kkqfqflwiqDrktizxjuGreen Cross Hospital Work Phone: Start: 06-12-2024 End: 18-00-9477Mqurmoz encounter procedureAt[facility] GroupT[facility] Work Phone: Start: 05-15-2024 End: 95-48-8922yustlylwldLocfxnqodGreen Cross Hospital Work Phone: Start: 05-15-2024 End: 11-30-3145Ohobqpd encounter procedureAt[facility] Work Phone: Start: 03-07-2024 End: 63-31-5119Jszpkax encounter procedureAt[facility] Work Phone: Start: 02-01-2024 End: 72-73-2409Kkqspw Jyoti Garcia MD Work Phone: noms ENTStart: 02-01-2024 End: 07-80-5219Yztwfe Jyoti Garcia MD Work Phone: [facility] CI ENTStart: 02-01-2024 End: 12-30-3865Jgzwmr outpatient new 45 minutesAlex Garcia MD Work Phone: [facility] CI ENTComment on above:Chronic vasomotor rhinitis (Primary Dx)Start: 02-01-2024 End: 08-88-6295xpxrtyxspeSBGBMZ H TIMMISNot AvailableStart: 01-24-2024 End: 97-95-6734xvspcdktboDyilfyqflGreen Cross Hospital Work Phone: Start: 01-24-2024 End: 81-54-3125Hljssag encounter procedureAt[facility] Work Phone: Start: 11-07-2023 End: 07-73-7510kppbdskcevSjcistroiMain Campus Medical Center Work Phone: Start: 11-07-2023 End: 35-70-8405Jzbfaid encounter procedureAt[facility] Work Phone: Start: 81-05-7018Pri-patient / Non-visitAt[facility] Work Phone: Start: 08-05-2023 End: 86-95-3708rcjleihxtoTrsimorqgGreen Cross Hospital Work Phone: Start: 08-05-2023 End: 96-57-1265Mqjzbbdlw for general adult medical examination without abnormal findingsToledo Hospitaltart: 08-05-2023 End: 37-99-3678Acqzhld encounter procedureAt[facility] Work Phone: Start: 28-39-7026Yxc-patient / Non-visitAt[facility] Work Phone: Start: 06-02-2023 End: 65-49-9883Cdiauwu encounter procedureAt[facility] Work Phone: Start: 05-18-2023 End: 07-78-0185zlceltwtyfEhlnxyccmMain Campus Medical Center Work Phone: Start: 05-18-2023 End: 13-62-3925Stbrcux encounter procedureAt[facility] Work Phone: Start: 04-07-2023 End: 55-85-0438Hlhvuth encounter procedureAt[facility] Work Phone: Start: 01-03-2023 End: 85-54-5515dvutoajenyAicegdcr Ball Other [employer] Other Start: 10-01-5100Wixibw outpatient visit 25 minutes Shay [facility] ClinicStart: 07-30-2022 End: 76-31-5507nesxcjxpivYP SHAY ROCAFacility:J4Dbvsm: 07-22-2022 End: 52-76-9100bberttksuxTkiloocj Ball Other [employer] Other Start: 40-49-8789Sdwqcpbul for general adult medical examination without abnormal findingsBented Roca Medical ClinicStart: 33-17-3989Zqoltwce preventive med est patient 65yrs& olderBelee Roca Medical ClinicStart: 15-71-3118Ofthvf outpatient visit 15 minutesThomas OlexaFPG [facility] OrthopedicsStart: 06-24-2022 End: 62-21-3017sutypqyrgxVK Shay Roca Work Phone: [employer] Other Start: 06-24-2022 End: 86-68-6632Ifswmzb encounter procedureDO Shay Roca Work Phone: [facility] Start: 04-20-2022 End: 02-72-0852fndgaggllbJfltnvdy Ball Other [employer] Other Start: 49-84-2938Btaflu outpatient visit 25 minutes Shay RocaIMELDAChandan Roca Medical ClinicStart: 03-02-2022 End: 80-92-3293xzccdortwzCI SOURAV BEDOLLA .Facility:X9Rwjub: 03-02-2022 End: 45-91-5210icowfsfamfKF SHAY BALLFacility:U6Hkgdk: 01-12-2022 End: 67-63-8072oyvnwsxflgOS SHAY JACKSONVILLEFacility:P9Ylxoh: 09-23-2021 End: 98-99-0892Ydqzzui encounter procedureMaher SALAM [facility] Start: 09-03-2021 End: 52-29-6506unkqzuoeqrBnegnjrm [place] Other [employer] Other Start: 18-23-5654Wwnnxe outpatient visit 15 minutes Renee Mihir [facility] OrthopedicsStart: 09-03-2021 End: 16-15-5940Dszgurb encounter procedureC[facility] SAL [phone]-WzgjyWayne Hospital Health Start: 08-04-2021 End: 39-84-7274tapztqqaidKX BENJAMIN CHANELLEcility:W3Eahum: 04-09-2021 End: 74-55-1624ulxsbddajwYazxlk Olexa Other [employer] Other Start: 02-53-1389Kweluk follow up visit related to original pxThomas OlexaFPG [facility] OrthopedicsStart: 02-26-2021 End: 51-41-8117olvpgxpiklAujgac Olexa Other [employer] Other Start: 55-90-4109Afaapornd encounterThomas OlexaFPG [facility] OrthopedicsStart: 02-02-2021 End: 37-20-5682vdefubyyikPbnopb Olexa Other [employer] Other Start: 16-67-7094Tzdpifnxh encounterThomas OlexaFPChandan Gayle OrthopedicsStart: 01-29-2021 End: 60-19-3282jbdhwquzifBoruey Olexa Other [employer] Other Start: 89-01-4889Lyyppfsef for other preprocedural examinationThomas OlexaFPG [facility] OrthopedicsStart: 65-17-2578Pktjem outpatient visit 25 minutesThomas OlexaFPG [facility] Procedures DateProcedureProcedure DetailPerforming ClinicianStart: 34-14-6553CC of right shoulderBenjamin Ball DO Work Phone: Start: 33-82-9331Iobct X-ray of right shoulderBenjamin Ball DO Work Phone: Start: 14-81-0612Bwdio foot complete minimum 3 views Jacobo Brown DPM Work Phone: Start: 86-20-2434LCQ screeningDR SHAY BALLComment on above:Performed By: #### TSH, URIC, CMP #### [facility] [address] [place] [address] Dr. Sherman SantosStart: 61-03-6011Zyvkq X-ray of right shoulderDO Shay Ball Work Phone: Start: 75-44-4373ZnwcjlfipylOwtqf SALAM Start: 68-82-6346Ozgbkmifebqsogwzdfdwuzjxez gastric outlet reductionMaher SALAM Start: 12-18-0026DOA screeningDR SHAY BALLComment on above:Performed By: #### PSASC #### [facility] [address] [place] [address] Dr. Sherman SantosHistory of repair of musculotendinous cuff of shoulderS/P right rotator cuff repairDO Shay Ball Work Phone: Comment on above:Problem List clean-up per request of Phys. EHR Cmte Plan of Treatment DateCare ActivityDetailAuthorStart: 09-07-2024 End: 43-14-0184Iwsvdrm encounter procedureNOMS [place] PODComment on above:Hallux rigidus of right foot (Primary Dx); Capsulitis of metatarsophalangeal (MTP) joint of right foot; DJD (degenerative joint disease), ankle and foot, right; Pain due to onychomycosis of toenails of both feetStart: 88-80-6833Ummri X-ray of right shoulderXR shoulder RT min 2V*[facility]: 55-19-8733UA Shoulder - right ViewsToledo Hospitaltart: 07-11-2024 End: 85-12-2783Bznmfkj encounter wcqyungdb41/16/2025 3:10 PM EDT Office Visit [facility] [address] [place] [id number] Jacobo Brown DPM [address] [facility] [address] [place] [address] Hallux rigidus of right foot (Primary Dx); Capsulitis of metatarsophalangeal (MTP) joint of right foot; DJD (degenerative joint disease), ankle and foot, rightNOMS [place] PODComment on above:Hallux rigidus of right foot (Primary Dx); Capsulitis of metatarsophalangeal (MTP) joint of right foot; DJD (degenerative joint disease), ankle and foot, rightStart: 02-01-2024 End: 73-33-8081Ihtrmvz encounter zsltebddg63/06/2024 10:50 AM EST Office Visit [facility] [address] [facility] [address] [place] [id number] Alex Garcia MD [address] [facility] [address] [place], [place] [id number] ArrivedNOMS CI ENTComment on above:ArrivedStart: 31-01-9749Dydvlpu referralParkview Health [facility] Work Phone: Comprehensive metabolic 2000 panel - Serum or Plasma [facility] HospitalCT Shoulder - right WO contrastOhio Valley Surgical HospitalPatient referralParkview Health Bryan Hospital Work Phone: [facility] Immunizations Immunization DateImmunizationNotesCare SiafavzmTnufaikj68-60-0126eccxabzts, high dose seasonal, preservative-freeBenjamin Ball DO Work Phone: [facility]10-18-2024influenza, high dose seasonal, preservative-freeBenjamin Ball DO Work Phone: [facility]10-10-2023Influenza vaccine, quadrivalent, adjuvantedBenjamin Ball DO Work Phone: [facility]10-10-2023influenza virus vaccine, unspecified formulationOhio Valley Surgical Hospital 09-82-5402Ktzarjdfh vaccine, quadrivalent, adjuvantedBenjamin Ball DO Work Phone: [facility]10-16-2022influenza virus vaccine, split virus (incl. purified surface antigen)Shay Chanelle Other [employer] Other [id number] virus vaccine, unspecified formulationOhio Valley Surgical Hospital10-16-2022influenza, high dose seasonal, preservative-freeBenjamin Ball Other [employer] Other [id number] polysaccharide vaccine, 23 valentBenjamin Ball Other [facility]04-14-2022COVID-19 mRNA-1273 (Moderna)Shay Ball DO Work Phone: [facility]10-26-2021COVID-19 mRNA-1273 (Moderna)DO Shay Ball Work Phone: [facility]09-12-2021Influenza vaccine, quadrivalent, adjuvantedBenjamin Ball DO Work Phone: [facility]09-12-2021influenza virus vaccine, split virus (incl. purified surface antigen)Shay Chanelle Other [employer] Other [id number] virus vaccine, unspecified formulationOhio Valley Surgical Hospital08-01-2021influenza virus vaccine, unspecified formulationMnher SALAM [phone]-KsapxGalion [facility] [id number]-04 Vaccine Moderna - Documentation Purposes OnlyThomas Olexa Other [facility]03-02-2021COVID-19 Vaccine Moderna - Documentation Purposes OnlyThomas Olexa Other [facility]01-19-2021zoster vaccine recombinantBenjamin Ball Other [facility]01-19-2021zoster vaccine, liveBenjamin Ball Other [facility]11-06-2020zoster vaccine recombinantBenjamin Ball Other [facility]11-06-2020zoster vaccine, liveBenjamin Ball Other [facility]10-30-2020 pneumococcal conjugate vaccine, 13 valentBenjamin Ball Other [facility]10-17-2019Seasonal trivalent influenza vaccine, adjuvanted, preservative freeBenjamin Ball DO Work Phone: [facility]10-17-2018influenza, injectable, quadrivalent, preservative freeBenjamin Ball DO Work Phone: [facility] Payers DatePayer CategoryPayerPolicy [id number]-kow [id number] Health InsuranceMEDICAL MUTUAL [id number] 2013MedicareMEDICARE [id number] () [id number]759.28588-77-8374Jlaupyvazz of Defense ( and others)[id number] .0.062291.65656106-74-7395Aoqhgufahy of Defense ( and others)[id number] 20-81-7968Xvblnvaiem of Defense ( and others)[id number] 1960Medicare [id number] [id number] .7.50918[id number] 2.16.840.1.511945.3.579.2.593 [id number] 2.16.840.1.596739.3.57[id number] 2.16840.1.180672.3.579.2.70302-86-1383Ebqotyh8322236 2.16840.1.330327.3.57[id number] 2.840.1.826017.3.57[id number] 2.840.1.629763.3.579.2.693488-71-6927Jpcktnr1843476 2.0.1.339388.3.57[id number] 2.0.1.692104.3.579.2.803672-90-1387Lhghkiu8330001 2.840.1.97[id number] 2.840.1.009142.3.579.2.593 [id number] 2.840.1.497[id number] 2.840.1.4[id number] 2.840.1.694574.3.579.2.531 [id number] 2.840.1.256626.3.579.2.531 Social History DateTypeDetailFacilityStart: 37-57-4813Yvtsrbl smoking statusHeavy tobacco smoker (finding)[employer] Other Start: 02-01-2024 End: 95-09-5139Znd Assigned At [facility] [employer] Other Start: 03-05-2021 End: 93-38-6884Pvpeobj smoking status NHISSmoker (finding)[facility]: 47-44-7515Srf Assigned At Protestant HospitalTobacco smoking status NHISTobacco smoking consumption unknownNOMS HealthcareStart: 00-76-1152Vzn assigned at birthNot on fileNOMS Healthcare Start: 03-05-2021 End: 72-28-8150Umjvptl smoking status NHISSmokes tobacco dailyNOMS Healthcare History of tobacco useCigarette SmokerNOMS HealthcareStart: 42-05-6638Bcfikdi use and exposureSmokeless tobacco non-userNOMS HealthcareStart: 02-01-2024 End: 04-44-1613Ylyedqula beverage intakeCurrent drinker of alcohol (finding)[facility]OMS HealthcareStart: 02-01-2024 End: 85-55-2186Iqpwwug of Social functionNOMS HealthcareStart: 05-15-2024 End: 95-46-7013NlcUhir (finding)[facility] Medical Equipment Procedure CodeEquipment CodeEquipment Original TextEquipment IdentifierDates Arthroscopy, shoulderTendon/ligament bone anchor, bioabsorbable ()[id number] FDAStart: 82-38-0666Amjldvmksgl, shoulderTendon/ligament bone anchor, bioabsorbable ()[id number] FDAStart: 02-27-2021 Functional Status BejjGemtvxanugRvdncpClzwtkwn20-54-9839Bgaxzjklgb StatusN/AFemeka [facility] Clinical Notes 01-29-2021 to 01-31-2025 Note Date & SxjrHjpwPmaaekpw02-85-3559 Radiology Diagnostic study noteMAR[facility]ET[facility] [place] [address] CT Scan Report Signed Patient: Dai العلي MR#: [id number] : 1945 Acct:[id number] Age/Sex: 79 / M ADM Date: 5 Loc: CT Room: Type: [facility] Attending Dr: Hawa Starkey MD Copies to: [...] Ramires M.D. 01/31/2025 5:52 PM Dictation Location: [place] [address] Transcribed By: [facility] 01/31/251751 Dictated By: Doc Ramires II, MD 01/31/251747 Signed By: 01/31/251751 [facility] Work Phone: 1(584) 837-576509-09-2025 Evaluation note* Diagnosis Onset Date Resolution Status [...] adenoma of colonacute January 31, 2025 9:02am [facility] Work Phone: 1(541) 561-282207-31-2025 Evaluation note* Diagnosis Onset Date Resolution Status [...] 11:27amTear of right supraspinatus tendonacuteSeptember 2024 11:27am [facility] Work Phone: 1(547) 607-685107-31-2025 Evaluation note* Diagnosis Onset Date Resolution Status [...] 10:59amTear of right supraspinatus tendonacuteOctober 2024 10:59am [facility] Work Phone: 1(248) 313-963106-13-2025 History of Present illness Narrative* Jacobojanet Brown, [...] 1-10 Jacobo Brown DPM documented in this encounterUniversity of Missouri Health CareFbhsukiovl46-96-0230 Evaluation note* Diagnosis Onset Date Resolution Status Admit Date Primary osteoarthritis, right shoulder acuteJune 2024 9:38amRight shoulder tendonitisacuteJune 2024 9:38am Tear of right supraspinatus tendonacuteJune 2024 9:38amBarrett's esophagus without dysplasiaacuteJuly 2024 8:36amHypercholesterolemiaacuteJuly 2024 8:36amLung nodule, multipleacuteJuly 2024 8:36amMucopurulent chronic bronchitisacuteJuly 2024 8:36amNicotine addictionacuteJuly 2024 8:36amPrimary hypertensionacuteJuly 2024 8:36amScreening PSA (prostate specific antigen)acuteJuly 2024 8:36amTubular adenoma of colonacuteJuly 2024 8:36amWellness examinationnoneactiveJuly 2024 8:36am [facility] Work Phone: 1(649) 800-678504-16-2025 History of Present illness Narrative* Jacobo Brown [...] symptomsreturn Jacobo Brown DPM documented in this encounterUniversity of Missouri Health CareDrqbfelirf59-84-1076 History of Present illness Narrative* Jacobo Brown [...] 10 Jacobo Brown DPM documented in this encounterUniversity of Missouri Health CareGpbpddjzaq81-54-5761 History of Present illness Narrative* Jacobo Brown [...] 10 Jacobo Brown DPM documented in this encounterUniversity of Missouri Health CareKjgqjpjrdn26-14-2606 Evaluation note* Diagnosis Onset Date Resolution Status Admit Date [facility]ch 20[facility] 8:13amPrimary hypertensionacuteMaych 2024 8:13am Right shoulder painacuteMaych 2024 8:13amRotator cuff tendonitisacuteMaych 2024 8:13amPrimary osteoarthritis, right shoulderacuteJune 2024 9:38amRight shoulder tendonitisacuteJune 2024 9:38amTear of right supraspinatus tendonacuteJune 2024 9:38am [facility] Work Phone: 1(730) 725-809602-18-2025 Evaluation note* Diagnosis Onset Date Resolution Status Admit Date Primary hypertension acuteFebruary 2024 8:28amAcute bronchitis due to other specified organisms noneactiveFebruary 2024 8:28amNicotine addictionacuteMarch 2024 8:13amPrimary hypertensionacuteBacharach Institute For Rehabilitationch 2024 8:13amRight shoulder painacute March 2024 8:13amRotator cuff tendonitisacuteMarch 2024 8:13am [facility] Work Phone: 1(517) 612-513412-11-2024 Evaluation note* Diagnosis Onset Date Resolution Status Admit Date Mucopurulent chronic bronchitis acuteDecember 2023 8:46amNicotine addictionacuteMarch 07, 2024 8:46am Primary hypertensionacuteMarch 07, 2024 8:46amRight shoulder painacute March 07, 2024 8:46amRotator cuff tendonitisacuteDeceer 2023 8:46am [facility] Work Phone: 1(310) 322-910811-06-2024 History of Present illness Narrative* Alex Garcia [...] for a Clarafix procedure. documented in this encounterUniversity of Missouri Health CareUnrtaezded78-24-0228 Evaluation note* Encounter Date Diagnosis Assessment Notes [...] in appetite, bowel habits, melena or hematochezia [employer] Other 04-27-2023 Evaluation note* Encounter Date Diagnosis [...] and exercise. Reviewed age-appropriate preventive testing recommended. [employer] Other 03-30-2023 Evaluation note* Encounter Date Diagnosis [...] May,Other specified postprocedural states (ICD-10 - Z98.890) [employer] Other 01-24-2023 Evaluation note* Encounter Date Diagnosis [...] to respiratory infections, vascular disease and cancers. [employer] Other 06-30-2022 Note [id number]:127[facility] 09-23-2021 Hospital Discharge instructions Patient Education [...] Follow these instructions at home: Medicines Take qxbv-qnb-faqfnwz and prescription medicines only as told by [...] powder, vinegar, hot sauces, and barbecue sauce. ?Edgar fruit juices and citrus fruits, such as oranges, vikas, and limes. ?Tomato-based foods, such as red sauce, chili, salsa, and pizza with red sauce. ?Fried and fatty foods, such as donuts, [place] fries, potato chips, and high-fat dressings. ?High-fat [...] 04/21/2005 Document Revised: 11/03/2018 Document Reviewed: 11/03/2018 [place] Patient Education 2020 Art Qualified. 09/23/2021 13:01:51 Upper Endoscopy, Adult, Care After [...] what activities are safe for you. Take qvex-ocn-opqbsbg and prescription medicines only as told by [...] 09/12/2012 Document Revised: 09/05/2018 Document Reviewed: 08/14/2018 [place] Patient Education 2020 Art Qualified. 09/23/2021 13:01:51 Diverticulosis Diverticulosis Diverticulosis is a [...] overweight. Not getting enough exercise. Smoking. Taking apxz-txd-mditqgb pain medicines, like aspirin and ibuprofen. Having [...] health care provider or your diet and digital advertising specialist (dietitian). ?Take a fiber supplement or probiotic, if your health care provider approves. Take kory-ksa-vhpikjt and prescription medicines only as told by [...] 12/09/2004 Document Revised: 02/24/2018 Document Reviewed: 01/31/2017 [place] Patient Education 2020 Art Qualified. 09/23/2021 13:01:51 Colon Polyps Colon Polyps Polyps [...] 12/08/2004 Document Revised: 06/29/2018 Document Reviewed: 06/29/2018 [place] Patient Education 2020 Art Qualified. 09/23/2021 13:01:51 Colonoscopy, Care After Surgery Salam (Custom) Colonoscopy Care After Surgery Please read the instructions outlined below and refer to this sheet in the next few weeks. These discharge instructions provide you with general information on caring [facility] Your doctor may also give you [...] With:Marlys LOPEZ Address: [address] [place] [address] Business (1) When: Unknown Comments:Call for any problems.Office will call you if follow up is needed. [facility]06-09-2022 Evaluation note* Encounter Date Diagnosis Assessment Notes Treatment Notes Treatment Clinical Notes Aug, Tear of right supraspinatus tend on (ICD-10 - M75.101) Aug,steoarthritis of right acromioclavicular joint (ICD-10 - M19.011) Aug,ther specified postprocedural states (ICD-10 - Z98.890)Patient is progressing well. Continue motion and strengthening exercises [facility]. Instructed on proper body mechanics to avoid repeat injury. Call with questions/concerns. [employer] Other 01-13-2022 Evaluation note* Encounter Date Diagnosis [...] over doing activity to avoid repair failure. [employer] Other 11-04-2021 Evaluation note* Encounter Date Diagnosis [...] - M25.511) Jan,re-op examination (ICD-10 - Z01.818) [employer] Other Evaluation + Plan note Future Appointments Appointment Date:09/23/2021 12:20:00 PM Scheduled Provider: Location:[facility] Appointment Type:Surgery FT [facility] Evaluation noteNo [facility] [employer] Other Evaluation noteNo assessment information available [facility] Work Phone: Evaluation note* Diagnosis Onset Date Resolution Status Primary hypertension acutePrimary osteoarthritis, right shoulderacuteRight shoulder painacutePrimary osteoarthritis, right shoulderacuteRight shoulder tendonitisacuteTear of right supraspinatus tendonacuteBarrett's esophagus without dysplasiaacute HypercholesterolemiaacuteLung nodule, multipleacuteMucopurulent chronic bronchitisacuteNicotine addictionacutePrimary hypertensionacuteTubular adenoma of colonacuteScreening PSA (prostate specific antigen)noneactiveWellness examinationnoneactive [facility] Work Phone: Evaluation note* Diagnosis Onset Date Resolution Status Mucopurulent chronic bronchitis acuteNicotine addictionacutePrimary hypertensionacutePrimary osteoarthritis, right shoulderacuteRight shoulder painacute [facility] Work Phone: Evaluation note* Diagnosis Onset Date Resolution Status Mucopurulent chronic bronchitis acuteNicotine addictionacutePrimary hypertensionacutePrimary osteoarthritis, right shoulderacuteRight shoulder painacuteChronic vasomotor rhinitisacute Hypertrophy, nasal, turbinateacuteNicotine addictionacute [facility] Work Phone: Evaluation note* Diagnosis Chronic [...] Medical 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 [place] [employer] Other Hisygui general Narrative - ReportedNort [employer] Other Hiswxyy general Narrative - Reported* Type Description Date Medical History high blood pressure Medical 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 Surgical HistoryRight shoulder arthroscopy with supraspinatus rotator cuff repair[using one 5.5 tape loaded swivel lock medial row, one 5.5 swivel lock lateral row/Subacromial decompression/Extensive debridement inferior labral tear DOS 02/28/2112/2021 [place] [employer] Other Hisfgow general Narrative - Reported* Type Description Date [...] labral tear DOS 02/28/2112/2021 Hospitalization Historysee above [employer] Other Hospital course Narrative No data available for this section [facility] Hospital Discharge instructions No data available for this section [facility] Discharge instructionsAmbulatory Orders* Referral to ENT Time Frame: 01/24/24, Location: None Selected [facility] Work Phone: Progress note No data available for this section [facility] (narrative)No reason for referral information availableParkview Health [facility] Hospital Work Phone: Summary Purpose Family History [...] 2024 11:27am Tear of right supraspinatus tendon [facility] 2024 11:27am Chief Complaint Admit Date wellness [...] 11:27am Tear of right supraspinatus tendon [facility] 2024 11:27am Primary osteoarthritis, right [...] DateEnd Date Shay Roca MD [address] [place] [phone] PCP - [facility]02/01/24 Team Status: Inactive Member Role Status Dates Shay Roca DO Primary Care Provider Active Start: July 03, 2024 End: July 03matilde Pierre - [facility] , CHCAttending ProviderActiveStart: July 03, 2024 End: July 03, 2024Team MemberRelationshipSpecialtyStart DateEnd Date Shay Roca MD PCP - [facility]02/01/24Team MemberRelationshipSpecialtyStart Date End Date Shay Roca MD PCP - [facility]02/01/24 Team Status: Inactive Member Role Status Dates [...] DateEnd Date Shay Roca DO [address] [place] [phone] PCP - [facility]02/01/24Team MemberRelationshipSpecialtyStart Date End Date Shay Roca DO [address] [facility] [place] [phone] [facility] Pk[facility]ftkd91[facility] Team Status: Inactive Member Role Status Dates [...] section and content) DATE CREATED AUTHOR 11/21/2021 [facility] DATE CREATED AUTHOR AUTHOR'S ORGANIZ ATION 07/30/2022 [facility] DATE CREATED AUTHOR AUTHOR'S ORGANIZ ATION 09/10/2024 [facility] DATE CREATED AUTHOR AUTHOR'S ORGANIZ ATION 02/02/2025 [facility] Goals (unrecognized section and content) [...] BE BASED ON THE PRIMARY CLINICAL RECORDS. [facility] [employer] [facility]. provides no warranty or guarantee of the accuracy or completeness of information in this document.
--- OUTSIDE RECORDS SUMMARY | 2025-03-07 06:10 | XMS_ITS | Clinical Summary ---
Author Organization [facility] Healthcare Address [address] [place] [address] Care Team Providers Care Wheat Farmer Name Role Phone Shay Pineda Primary Care Provider [phone] Allergies Active AllergyReactionsCriticalityNoted RfvfHxkuitwoIpetovywrjyu88/29/2024 Other Reaction(s): UNK Medications MedicationSigDispense QuantityRefillsLast FilledStart [...] A DAY MEN 50 PLUS PO) 1 fjvlwf9011/07/2023ctive milk thistle 175 MG tablet Take 175 mg by mouth DailyActive Echinacea 650 MG capsule Take by mouthActive Cyanocobalamin (Vitamin B 12) 100 MCG lozenge Take by mouthActive ipratropium (Atrovent) 0.06 % nasal spray Indications:Chronic vasomotor rhinitisAdminister 2 sprays into each nostril in the morning and 2 sprays in the evening and 2 sprays before bedtime. 45 mL 311/06/2024Active Active Problems ProblemNoted DateDiagnosed LcvhJadwduvnx05/06/2024Barrett's esophagus without ombnwfhux98/06/2024enign prostatic hyperplasia with lower urinary tract qgoojriz94/06/2024Chronic vasomotor iphofyhg25/06/1974Bompfn23/13/2022 Family History RelationNameStatusCommentsFatherDeceasedMotherDeceased Social History Tobacco UseTypesPacks/DayYears UsedDateSmoking Tobacco: Every DayCigarettes Smokeless Tobacco: Never Tobacco Cessation:Ready to Q uit: Not Asked; Counseling Given: Yes Alcohol UseStandard Drinks/WeekCommentsYes1 (1 standard drink = 0.6 oz pure alcohol)Sex and Gender InformationValueDate RecordedSex Assigned at BirthNot on fileLegal IiuHlco12/29/2024 1:51 PM EDTGender IdentityNot on fileSexual OrientationNot on file Last Filed Vital Signs Vital SignReadingTime TakenCommentsBlood Iqikjsvf441/80104/02/2023 10:47 AM EST Pulse--Temperature--Respiratory Tvge201509/07/2024 2:12 PM EDTOxygen Saturation-- Inhaled Oxygen Concentration--Hfekrc78.1 kg (170 lb)09/07/2024 2:12 PM EDTHeight 180.3 cm (5' 11 )09/07/2024 2:12 PM EDTBody Mass Index23.71009/07/2024 2:12 PM EDT Plan of Treatment Not on file Insurance Care Teams Team MemberRelationshipSpecialtyStart DateEnd Date Shay Pineda DO [address] [place] [address] PCP - GeneralInternal Qlmcinew58/6/24
[2025-03-07 06:19] LABS: Hematocrit 39.2 % (42.0-54.0); Hemoglobin 13.2 g/dL (14.0-18.0); Immature Granulocytes Abs Auto 0.01 10^3/uL (0.00-0.03); Immature Granulocytes Pct Auto 0.1 % (0.0-0.5); Lymphocytes Absolute Auto 2.1 10^3/uL (1.2-3.8); Mean Corpuscular HGB Conc 33.7 g/dL (29.9-35.2); Mean Corpuscular Hemoglobin 32.4 pg (25.9-34.0); Mean Corpuscular Volume 96.3 fL (80.0-94.0); Platelet Count 318 10^3/uL (150-450); Red Blood Count 4.07 10^6/uL (4.70-6.10); White Blood Count 7.1 10^3/uL (4.0-11.0)
[2025-03-07] MEDS: CEFAZOLIN SODIUM/DEXTROSE,ISO 2 GM/50 ML PIGGYBACK IV (07:28)
--- NOTE | 2025-03-07 07:39 | PC.NURSE ---
0717 TIME OUT PERFORMED WITH ZACHARY CABRALES 0718 2 MG VERSED, 50 MCG FENTYNAL GIVEN IN IV BY FUSING MACHINE TENDER 0719 FUSING MACHINE TENDER LOOKING FOR INJECTION SITE WITH ULTRASOUND AND BEGAN INJECTIO OF ROPIVOCAIN 0723 BLOCK WAS COMPLETED PATIENT STATES SHOULDER FEELING BETTER ALREADY
[2025-03-07] MEDS: TRANEXAMIC ACID 1,000 MG in 0.9 % SODIUM CHLORIDE 100 ML 440 MG IV ×2 (07:45→08:54)
--- NOTE | 2025-03-07 09:00 | XR_ITS ---
[place] [id number] Patient Name: DAI GONCALVES MRN: [id number] date: 1945 Sex: M Assigned Patient Location: [facility] Current Patient Location: [facility] Accession/Order Number: [id number] Exam Date: 03/07/2025 08:50 Report Date: 03/07/2025 10:25 At the request of: GAEL DOTSON DO Procedure: XR shoulder RT 1V RIGHT SHOULDER - one view CLINICAL DATA: Follow-up right shoulder replacement COMPARISON: 11/04/2020 AP view of the shoulder was obtained and shows a new reverse shoulder prosthesis. As visualized, the hardware appears intact and in appropriate position. There is no acute fracture or dislocation. There is degenerative change at the acromioclavicular joint. There is postoperative air within the joint space. XR/XR shoulder RT 1V IMPRESSION: SATISFACTORY POSTOPERATIVE APPEARANCE OF SHOULDER PROSTHESIS. Impression dictated by: Alexus Cardona M.D. 03/07/2025 10:25 AM Dictation Location: [employer] Electronically authenticated by: [id number] Date: 03/07/2025 10:25
[2025-03-07] MEDS: BUPIVACAINE HCL 0.25% PF 25 MG/10 ML VIAL 20 ML INJ (09:36)
--- NOTE | 2025-03-07 09:37 | W.PM.OPNOTE ---
Surgery Operative Note Operative Note Procedure Date: 03/07/25 Pre-op Diagnosis: Right shoulder rotator cuff arthropathy Post-op Diagnosis: same as pre-op Procedures performed: 1. Right Reverse shoulder arthroplasty 2. Removal prior implants right shoulder Anesthesia: RANDY Primary Surgeon: Eloy Swan Complications: none Estimated blood loss (mL): 100 Findings: Right rotator cuff arthropathy Specimens: none Indications for Procedures: Cristhian is a 79-year-old male who was seen outpatient for chronic right shoulder pain he was found to have glenohumeral arthritis and evidence of rotator cuff arthropathy. Advanced imaging was obtained. We discussed continued conservative management versus surgical intervention. Risks, benefits, complications, procedure detail, convalescence, reasonable expectations were discussed in length. All questions were answered. Patient wishes to pursue surgical intervention, and consent was obtained. Patient was scheduled for surgery. Detailed description of Procedure: Patient was evaluated in the preoperative area. The correct patient, procedure, laterality was confirmed. Patient underwent a peripheral nerve block by anesthesia staff. Patient was then transported back to the operative suite and positioned supine on the operative table. He then underwent general anesthesia with no complications. Patient was then positioned in a beachchair position. All bony prominences were well-padded. The head and neck were positioned in a comfortable stable position. The left shoulder was prepped and draped in normal sterile fashion. A timeout was performed. Patient received preoperative antibiotics as well as 1 g of IV TXA. The procedure began by making incision on the skin and the deltopectoral approach. The cephalic vein was identified in the interval between the deltoid and the pectoralis major was identified and opened. The lateral aspect of the conjoined tendon was mobilized and the subscapularis tendon was exposed as well as the 3 sisters blood vessels. The vessels were cauterized to ensure no bleeding throughout the surgery. The biceps tendon was found situated in the groove. This was dissected and tenotomized with the distal portion being tenodesed to the superior portion of the pectoralis major tendon. A complete subscapularis peel was performed as the shoulder was externally rotated. The shoulder was dislocated at this point and retractors were placed. Using an intramedullary guide, the appropriate neck cut was performed on the humerus. A protective guide was placed on the humerus. Next retractors were placed to expose the glenoid. The labrum was sharply debrided exposing the outer rim of the glenoid. Using a patient-specific guide, the starting pin was placed in the appropriate position on the glenoid. The glenoid was prepped appropriately and a press-fit glenoid component was placed using a central screw. Excellent fit was established with a component. Peripheral screws were placed to fix the glenoid component. Next, the templated glenosphere was placed and secured to the glenoid baseplate. Next the humerus was exposed again and humeral stem preparation was performed for an inlay humeral stem. A trial was placed. The shoulder was taken through range of motion and found to be stable and excellent range of motion. The trials were removed and the shoulder was irrigated. Final humeral implant and tray was placed and the shoulder was reduced again. Final range of motion confirmed excellent range of motion and excellent fit of the components. An intraoperative x-ray confirmed appropriate position of the components. The wound was copiously irrigated. Drill holes were placed in the lesser tuberosity and the subscapularis tendon was repaired to the lesser tuberosity. A nonabsorbable 0 FiberWire was used to close the deltopectoral interval in a running fashion. Subcutaneous skin was closed using 2-0 Monocryl. A 3-0 Monocryl was used for subcuticular running suture. Skin was closed with glue. A silver impregnated dressing was placed on the incision. A Cryo/Cuff and UltraSling was placed on the patient. Patient was then awoken from anesthesia and transported to PACU in stable condition. Counts are correct. Case was clean. No complications were encountered throughout the procedure. Postoperative plan: Patient will be discharged from PACU to home they will be seen by PT and OT post operatively in PACU. Patient will be no lifting in a sling to the operative extremity. Ambulation is encouraged to prevent blood clots. Dressing can be removed on postoperative day 7. Patient will follow-up in 10 to 14 days for evaluation. Outpatient therapy will start 4 weeks after surgery following reverse shoulder arthroplasty rehab protocol. 1. Tornier Perform Reverse Augmented baseplate 25mm, 15 degree augmentation 2. Tonier Perform Reverse 39mm glenosphere +0 3. Tornier Perform humeral stem size 2+ short 4. Tornier Perform humeral insert +0 thickness 5. Tornier screws 6.5 x 45mm central, 5mm x 46mm superior, 42mm inferior Eloy Swan, DO Orthopedic Surgeon Department of [employer] Anchor: Radha Shay
--- NOTE | 2025-03-07 11:28 | PC.NURSE ---
patient is resting comfortable. denies any pain and is waiting for OT to come see him prior to discharge
--- NOTE | 2025-03-07 13:06 | PC.NURSE ---
1230:pt working with XAVIER Vergara at this time.
== END 2025-03-07 12:50 | disposition home or self-care (01) ==
PROVIDERS: Anesthesiology; PCP Internal Medicine; Visit Provider Physician Assistant
PROC: (CPT 1638; principal; 2025-03-07 07:30)
DX: M19.011 Primary osteoarthritis, right shoulder (principal); M25.511 Pain in right shoulder; F17.210 Nicotine dependence, cigarettes, uncomplicated; J44.9 Chronic obstructive pulmonary disease, unspecified; I10 Essential (primary) hypertension; E78.5 Hyperlipidemia, unspecified; K21.9 Gastro-esophageal reflux disease without esophagitis; N40.0 Benign prostatic hyperplasia without lower urinary tract symptoms; F43.10 Post-traumatic stress disorder, unspecified
CPT/HCPCS: 23472; 36415; 64415; 73020; 85025; 97110; 97165; J0131; J0665; J0690; J1100; J1200; J1885; J2250; J2405; J2704; J2795; J3010

== ENCOUNTER 2025-03-17 03:06 | Emergency (ER) | payer OTHER, MEDICARE, SELFPAY ==
--- OUTSIDE RECORDS SUMMARY | 2025-03-07 05:12 | XMS_ITS | Continuity of Care Document ---
Author Organization [facility] Address [address] [place] [address] Phone Care Team Providers Care Under Water Assistant Name Role Phone Shay Pineda DO Primary Care Provider Jeff Grimaldo MD Attending Provider Shay Pineda DO Attending Provider [phone] Eloy Swan DO Attending Provider Provider, Outside Attending Provider Unavailable Care Teams Patient Care Team Team Status: Active Member Role/Relationship Status Dates Shay Pineda DO Primary Care Provider Active Visit Care Team Team Status: Inactive Member Role/Relationship Status Dates Shay Pineda DO Primary Care Provider Active Start: January 22, 2025 End: January 22, 2025Thomas OleJEANNETTE mortonttending ProviderActiveStart: January 22, 2025 End: January 22, 2025 Visit Care Team Team Status: Inactive Member Role/Relationship Status Dates Shay Pineda DO Primary Care Provider Active Start: January 31, 2025 End: January 31enjadayday Pineda DOAttsteph ProviderActiveStart: January 31, 2025 End: January 31, 2025 Visit Care Team Team Status: Inactive Member Role/Relationship Status Dates Shay Pineda DO Primary Care Provider Active Start: January 31, 2025 End: January 31, 2025Thomas Oleselene MDAttending ProviderActiveStart: January 31, 2025 End: January 31, 2025 Visit Care Team Team Status: Inactive Member Role/Relationship Status Dates Shay Pineda DO Primary Care Provider Active Start: February 11, 2025 End: February 11, 2025Eloy Swan , DOAttending ProviderActiveStart: February 11, 2025 End: February 11, 2025 Visit Care Team Team Status: Active Member Role/Relationship Status Dates Shay Pineda DO Primary Care Provider Active Start: February 18, 2025 Shay Pineda DOAttending ProviderActiveStart: February 18, 2025 Visit Care Team Team Status: Inactive Member Role/Relationship Status Dates Shay Pineda DO Primary Care Provider Active Start: February 20, 2025 End: February 20enjadayday Pineda DOAttending ProviderActiveStart: February 20, 2025 End: February 20, 2025 Visit Care Team Team Status: Active Member Role/Relationship Status Dates Shay Pineda DO Primary Care Provider Active Start: February 28, 2025 Shay Pineda DOAttending ProviderActiveStart: February 28, 2025 Patient Care Team Team Status: Active Member Role/Relationship Status Dates Shay Pineda DO Primary Care Provider Active Start: March 07, 2025 Outside ProviderAttending ProviderActiveStart: March 07, 2025 Patient Care Team Team Status: Inactive Member Role/Relationship Status Dates Shay Pineda DO Primary Care Provider Active Start: March 07, 2025 End: March 07, 2025Eloy Swan DOAttending ProviderActiveStart: March 07, 2025 End: March 07, 2025 Chief Complaint and Reason for Visit Chief Complaint Admit Date OP SP RT SHOULDER PAIN January 22 10:59am 3 month F/U January 31, 2025 9 :02am M19.011 January 31, 2025 4 :01pm CONSULT DR GRIMALDO February 11, 2025 7:47am Surgical Clearance February 20, 2025 2:50pm RIGHT REVERSE TOTAL SHOULDER ARTHROPLAST Y March 07, 2025 7:49am Reason for Visit Admit Date Primary osteoarthritis, right shoulder O ctober 2024 [...] 9:02am Tubular adenoma of colon January 31, 025 9:02am Primary osteoarthritis, right shoulder N ovember 2024 7:47am Right shoulder tendonitis February 11, 2025 7:47am Tear of right supraspinatus tendon Novem 2024 7:47am Alcohol use February 20, 2025 2:50pm Hypercholesterolemia February 20, 2025 2:50pm Hyponatremia February 20, 2025 2:50pm Mucopurulent chronic bronchitis February 20, 2025 2:50pm Nicotine addiction February 20, 2025 2:50pm Primary hypertension February 20, 2025 2:50pm Primary osteoarthritis, right shoulder N ovember 2024 2:50pm Tear of right supraspinatus tendon Novem 2024 2:50pm [facility] Allergies, Adverse Reactions, Alerts Allergen Type Severity Reaction Last Updated Verified Status atorvastatin Allergy Unknown UNK February 20, 2025 2:53pm Yes Active Social History Smoking Status Status Start Date End Date Date of Observa tion Smokes tobacco daily (finding) March 05, 2021 8:32pm Observation Status Observation Response Date of Response Legal Sex [facility] (finding) [facility] 1945 Family History Relationship Condition Age at Onset Recorded Date/T de mother Malignant neoplasm Unknown DeceasedUnknownfatherDeceasedUnknown Problems Active Problems Problem Diagnosis/Recorded Date Onset Date Status C omments Nicotine addiction August 03, 2023 9:46pm Unknown Active Screening PSA (prostate specific antigen)July 12, 2024 6:28pmUnknownActive PSA: 0.81 - 07/2018, 0.98 - 06/2023, 1.12 - 4arrett's esophagus without dysplasiaFebruary 2023 10:30amUnknownActivePrimary osteoarthritis of left shoulderFebruary 2023 10:30amUnknownActivePrimary osteoarthritis, right shoulderFebruary 2023 3:15pmUnknownActiveHypertrophy, nasal, turbinate January 24, 2024 11:28amUnknownActiveMucopurulent chronic bronchitisFebruary 2023 10:30amUnknownActiveRotator cuff tendonitisDecember 2023 9:37am UnknownActiveAnemiaFebruary 2023 10:33amUnknownActiveArthritisAugust 2020 2:16pmUnknownActiveArthritisFebruary 2023 10:33amUnknownActiveTear of right supraspinatus tendonFebruary 2023 10:33amUnknownActive HypercholesterolemiaMay 2023 9:46pmUnknownActiveHyponatremiaFebruary 2023 10:33amUnknownActiveAlcohol useNovember 2024 7:06amUnknownActive Status post reverse arthroplasty of right shoulderDecember 2024 12:43pm UnknownActivePrimary hypertensionFebruary 2023 10:30amUnknownActiveBenign prostatic hyperplasia with lower urinary tract symptomsFebruary 2023 10:30amUnknownActiveLung nodule, multipleFebruary 2023 10:30amUnknown ActiveSerial LDCT completed:No suspicious nodules: 12/2021, 12/2022, 01/2024 Right shoulder painDecember 2020 11:13pmUnknownActiveTubular adenoma of colonFebruary 2023 10:30amUnknownActiveChronic vasomotor rhinitisOctober 2023 11:26amUnknownActiveRight shoulder tendonitisMarch 2023 12:10pm UnknownActiveInactive/Resolved Problems Problem Diagnosis/Recorded Date Onset Date Status [...] 19, 2023 12:00am August 05, 2023 8:04amIpratropium [place] 21 mcg (0.03 %) spray,non-aerosol Rumcfaqhcgcv8JHRUFLNUJLCWRAZVevaa times dailyNovember 2023 12:00amJun2024 9:27amadminister into each nostrilLisinopril 40 mg tabletDiscontinued 51GLYLVdfhc134Bahlopfl 2023 12:37pmJuly 2024 8:27amHTNCefuroxime Axetil 500 mg jdojzuXrhcdg015UQZHNwixa fgrgn4124Hhoie 2024 12:00amUnknown Ezetimibe 10 mg vcflihUkjzmmahjdpm21XWTNWflot87486Tptwq 2024 11:00pmApril 2024 12:42pmEzetimibe 10 mg fiwifgRjdnilhlqmrc69KBGQTpfpd13391Gupbp 2024 12:42pmJune 2024 9:27amClonidine Hcl 0.1 mg tabletActive0.1MGPOTwice hsmws42773Rwlwfhck 2024 12:00amUnknownMultivitamin (One A Day) Tablet Ddbprrxxlrwy0LJAYLTnunnEkqpmg 2020 11:00pmFebruary 2023 10:57am Ascorbic Acid (Vitamin C) (Vitamin C) 1,000 mg GrnzmxGtydkgtlybqp6934BADFTkxjs [place] 2020 11:00pmFebruary 2023 10:57amsupplementEchinacea 380 mg XdxjavwVyzvmm499QTUSVsfbhFsghwf 2020 11:00pmsupplementUnknownMilk Thistle 175 mg MqkwgfRxqsqv364CKYHZtqprIxtnge 2020 11:00pmsupplementUnknown Cyanocobalamin (Vitamin B-12) (Vitamin B-12) 1,000 mcg EvpaovPgzzlcsykriv8819YYR PODailyAugust 2020 11:00pmFebruary 2023 10:57amsupplementMeloxicam 7.5 mg tabletDiscontinued7.5MGPOTwice daily as needed for PainAugust 2020 11:00pmFebruary 2023 10:59amInstructed to stop 7 days before surgeryNiacin 500 mg NuolokOqzostbyhulx728NOJAOvdtdAjrgzx 2020 11:00pmFebruary 2023 10:57amLisinopril 40 mg OnywbmWozdcwpnlxmx11KTNIMfktlNovrqa 2020 11:00pmFebruary 2023 10:59amHTNPyridoxine (Vitamin B6) (Vitamin B-6) 500 mg CmhtrwCmufpazytyas4278FDNAXmclcYerbuv 2020 11:00pmFebruary 2023 10:57amsupplementCholecalciferol (Vitamin D3) (Vitamin D3) 25 mcg (1,000 unit) FeveeiuLavvgcyuwuog43SLAYUHxwrgKojdku 2020 11:00pmFebruary 2023 10:57amsupplementMethylsulfonylmethane (Msm) 1,000 mg LyngyzCvewsjecalgl4875JITE DailyAugust 2020 11:00pmAugust 2023 11:07amjoint healthCalcium Citrate-Vitamin D3 (Citracal Plus D) 250 mg-5 mcg (200 unit) AfidwiFbfymx1EZIIM DailyAugust 2020 11:00pmsupplementUnknownPotassium Gluconate 595 mg (99 mg) XzpymlTmeizzkkxndp611ELMQZnjuyPjlmue 2020 11:00pmFebruary 2023 10:59amsupplementTurmeric 400 mg HwovsixTvymwvqzonek904BIKSOnpbmExbdhq 2020 11:00pmFebruary 2023 10:59amsupplementAspirin 81 mg Capsule Hromfksltwwe16CODAIcpmuScdkld 2020 11:00pmAugust 2023 11:06am Instructed to stop 7 days prior to surgeryPrevagen 1 cpoAksqokbunxgs1VRONWOzmpl [place] 2020 11:00pmFebruary 2023 10:59amsupplementSodium Chloride 1 gram HxzpatYwgqsdcregwb9EDFHNe Directed as needed for CrampsAugust 2020 11:00pmFebruary 2023 10:57amLisinopril 40 mg euwigcCbqlskiixspv74YMUNYmsrn May 18, 2023 10:42amDecember 2023 12:37pmHTNMeloxicam 7.5 mg tablet Discontinued7.5MGPODaily as needed for PainFebruary 2023 10:43amFebruary 2023 11:21amPotassium Gluconate 595 mg (99 mg) tnoffzZvnhsb688VCEQTudmy May 18, 2023 10:44amsupplementUnknownPrevagen 1 cslDoxyoc8XVLWEVqzcq May 18, 2023 10:45amsupplementUnknownTurmeric 400 mg mxdwlvaOixkez617PDTM DailyMay 18, 2023 10:46amsupplementUnknownIpratropium [place] 42 mcg (0.06 %) spray,non-aerosolDiscontinuedINTRANASALFebruary 2023 12:00am November 07, 2023 11:06amUse 2 sprays in each nostril before meals nasally three times a dayNiacin 500 mg jeujzgDjuxtk177KZCIIeykyTihece 2023 11:00pm UnknownMecobalamin (Vitamin B12) 500 mcg tablet,chewableActiveMCGPOAugust 2023 11:00pmUnknownAscorbic Acid (Vitamin C) 500 mg capsuleActiveMGPOAugust 2023 11:00pmUnknownPyridoxine (Vitamin B6) 100 mg uqmkphYscwxq943UEDVMglab a WeekAugust 2023 11:00pmUnknownCholecalciferol (Vitamin D3) 125 mcg (5,000 unit) idamvvzZngtqh618DNXUPGfxhpRqmsnh 2023 11:00pmUnknown Psueasms-Blv-Mbley-Vit K-Lycop 400-20-370 mcg nhieqrHkvyce8QOGTECciywLqogwr 2023 11:56twZngwfixF1-Kjqcl-X07-Xrlkxe-Hgvkaigxif (Neuriva Plus Brain Performance) 1.7 mg-400 mcg- 2.4 mcg capsuleActiveCAPPOAugust 2023 11:00pm UnknownGlucosamine Hcl 1,500 mg yhnexeUehdej9316HHRBSrafiUdlprt 2023 11:00pmadminister with a mealUnknownEzetimibe 10 mg skvilrCsjpzt98XUXRXhcai22241 October 25, 2024 8:22amUnknownAmlodipine-Benazepril 5-40 mg feqzyopSkinoy0MZDFZ Olggy82651Bnpw 2024 11:00pmUnknownNebivolol (Bystolic) 5 mg tabletActive5 LJEMDbbpi24341Xricnmqj 2024 12:00amUnknownAzithromycin 250 mg tablet Evpgfetiogkd328NFSP.TFBUKVX111Fwydxczu 2024 12:00amFebruary 2024 9:23am2 tabs on first day followed by 1 tab on days 2-5Doxycycline Hyclate 100 mg zjxlqxbPogvxb831UARULjwty cizst1069Hylyuydr 2024 12:00amTO BE USED POST OP 03/07/25 OK TO FILL 03/06/25Complies with drug therapyPolyethylene Glycol 3350 (Miralax) 17 gram powder in kihmqjXgxflt38TWWKgrdxz96700Emkudsbq 2024 12:00am1 packet mixed with 8 ounces of fluid. TO BE USED POST OP 03/07/25 OK TO FILL 03/06/25Complies with drug therapyMeloxicam 15 mg ibdcpyZpjyjn15TUCV keyyv77251Vmpjyhoj 2024 12:00amTO BE USED POST OP 03/07/25 OK TO FILL 03/06/25Complies with drug therapyAcetaminophen 500 mg tabletActive 867UXQAF6N as needed for Fkbt816Kgoduxvu 2024 12:00amTO BE USED POST OP 03/07/25 OK TO FILL 03/06/25Complies with drug therapyDocusate Sodium (Colace) 100 mg fdnyzjiDphhjt367HBUXEjppx daily as needed for Jhjsqxncpudq89775Jjoezmnf 2024 12:00amTO BE USED POST OP 03/07/25 OK TO FILL 03/06/25Complies with drug therapyOxycodone 5 mg lonopsWklyfa8HWGFY4B as needed for Zsqs6772Ccuwmqqc 2024Status post reverse total replacement of right shoulder Presence of right artificial shoulder jointTO BE USED POST OP 03/07/25 OK TO FILL 03/06/25Complies with drug therapy Immunizations Immunization Event Date Not Given Reason Dose Number [employer] Lot Number Reason(s) Given Vaccine Information Statement (VIS) Detail Administration Location COVID-19 mRNA-1273 (Moderna) May 27, 2020 COVID-19 mRNA-1273 (Moderna)June 24OVID-19 mRNA-1273 (Moderna)January 20OVID-19 mRNA-1273 (Moderna)July [id number] TIV High- Dose 65YR+January 13, 2024U8429BAFluzone TIV High-Dose 65YR+January 02, 2025 [id number], trivalentOctober , [id number] vaccine, quadrivalent, adjuvantedSeptember [id number] vaccine, quadrivalent, adjuvantedOctober , [id number] vaccine, quadrivalent, adjuvantedOctober , [id number], unspecified formulationSeptember 2020influenza, unspecified formulationOctober , 2021influenza, unspecified formulationOctober , 3Pneumococcal Conjugate Vaccine, 13 valentOctober 2019Pneumococcal Polysacc. Vaccine, 23 valentJuly 2021 Quadrivalent InfluenzaOctober [id number] Vaccine Recombinant, AdjuvantedNovember 2019Zoster Vaccine Recombinant, AdjuvantedJanuary hingles (Zoster)February 01, 2020Shingles (Zoster)April 15, 2020 Medical Equipment Device Date Implanted Device Details Tendon/ligament bone anchor, bioabsorbable February 27, 2021 ANGELA: [id number] Issuing Agency: [employer] Device Id: [id number] Expiration Date: 2024-08-25 Lot Number: [id number]/ligament bone anchor, bioabsorbableDecember 2020 ANGELA: [id number] Issuing Agency: [facility] Device Id: [id number] Expiration Date: 2024-11-25 Lot Number: [id number] Procedures Procedure Date Performed Status CT shoulder RT wo con January 31, 2025 4:06pm completed Relevant Diagnostic Tests and/or Laboratory Data Laboratory Results Test Collection Date/Time Result Date/Time Result Interpretation Reference Range Result Comment Performing Site Basophils # (Auto) February 18, 2025 3:15pm February 18, 2025 3:15pm 0.1 10 3/uL 0.0-0.1Anion GapFebruary 18, 2025 3:15pmNov2024 3:15pm13.3 OsmolalityDecemb2024 7:28amDecember 2024 7:89as521 mOsmol/kg Abnormal (applies to non-numeric results)280-301Performed at: [facility] [address] [id number] Director: Janice Medellin MD, Phone: [phone] GapFebruary 28, 2025 7:28amDecember 2024 7:28am 11.7Urine OsmolalityDece2024 7:35amDecemb2024 7:98vy953 mOsmol/kg.24 hr : 300 - 900 Random: 50 - 1400 After 12hr fluid restriction: >850Performed at: [facility] [address] [id number] Director: Janice Medellin MD, Phone: [phone] Random Sodium February 28, 2025 7:35amDecemb2024 7:35am78 mmol/O04-94Uporpjubr # (Auto)March 07, 2025 6:13amDecember 2024 6:13am0.1 10 3/uL0.0-0.1 Basophils (%) (Auto)February 18, 2025 3:15pmNovember 2024 3:15pm0.7 % 0.2-2.0Albumin/Globulin RatioNovember 2025 3:15pmNov2024 3:15pm1.1BUN/Creatinine RatioDe2024 7:28amDecemb2024 7:28am 21.6Basophils (%) (Auto)March 07, 2025 6:13amDecemb2024 6:13am0.8 %0.2-2.0Eosinophils # (Auto)February 18, 2025 3:15pmNov2024 3:15pm 0.4 10 3/uL0.0-0.7AlbuminFebruary 18, 2025 3:15pmFebruary 18, 2025 3:15pm4.0 g/dL3.4-5.0Blood Urea NitrogenDe2024 7:28amDece2024 7:28am 22.0 mg/dLAbove high normal7.0-18.0Eosinophils # (Auto)March 07, 2025 6:13amDece2024 6:13am0.6 10 3/uL0.0-0.7Eosinophils (%) (Auto)February 18, 2025 3:15pmNov2024 3:15pm5.5 %0.9-7.0Alkaline Phosphatase February 18, 2025 3:15pmFebruary 18, 2025 3:29li012 U/X12-462Jqkyakz Level February 28, 2025 7:28amDece2024 7:28am9.0 mg/dL8.5-10.1Eosinophils (%) (Auto)March 07, 2025 6:13amDece2024 6:13am8.3 %Above high normal0.9-7.0HematocritFebruary 18, 2025 3:15pmNov2024 3:15pm36.9 %Below low kguefe62.0-54.0Alanine Aminotransferase (ALT/SGPT)February 18, 2025 3:15pmNov2024 3:15pm48 U/W68-40Kbnsoham LevelDece2024 7:28amDece2024 7:70tm112 mmol/Z52-727LiuktlgpnzTemhvnon 11th, 2025 6:13amDece2024 6:13am39.2 %Below low otwzyr62.0-54.0Hemoglobin February 18, 2025 3:15pmFebruary 18, 2025 3:15pm12.8 g/dLBelow low normal 14.0-18.0Aspartate Amino Transf (AST/SGOT)February 18, 2025 3:15pmFebruary 18, 2025 3:15pm32 U/D78-54Irtziy Dioxide LevelDece2024 7:28am February 28, 2025 7:28am29.3 mmol/L21.0-32.0Hemoglobince2024 6:13amDece2024 6:13am13.2 g/dLBelow low mhyzxg24.0-18.0Immature Granulocyte # (Auto)February 18, 2025 3:15pmFebruary 18, 2025 3:15pm0.04 10 3/uLAbove high normal0.00-0.03BUN/Creatinine RatioNove2024 3:15pm February 18, 2025 3:15pm21.0CreatinineDece2024 7:28amce2024 7:28am1.02 mg/dL0.70-1.30Immature Granulocyte # (Auto)March 07, 2025 6:13amDece2024 6:13am0.01 10 3/uL0.00-0.03Immature Granulocyte % (Auto)February 18, 2025 3:15pmFebruary 18, 2025 3:15pm0.5 %0.0-0.5Blood Urea NitrogenFebruary 18, 2025 3:15pmFebruary 18, 2025 3:15pm17.0 mg/dL7.0-18.0 Estimated GFR ()February 28, 2025 7:28amDe2024 7:28am>60>=60 mL/min/1.73m 2Immature Granulocyte % (Auto)March 07, 2025 6:13amDecember 2024 6:13am0.1 %0.0-0.5Lymphocytes # (Auto)February 18, 2025 3:15pmNov2024 3:15pm1.8 10 3/uL1.2-3.8Calcium LevelFebruary 18, 2025 3:15pmNov2024 3:15pm8.7 mg/dL8.5-10.1Estimated GFR (Non- AmericanDe2024 7:28amDece2024 7:28am>60>=60 mL/min/1.73m 2Lymphocytes # (Auto)March 07, 2025 6:13amDecemb2024 6:13am2.1 10 3/uL1.2-3.8Lymphocytes (%) (Auto)February 18, 2025 3:15pmFebruary 18, 2025 3:15pm22.8 %20.5-60.0Chloride LevelFebruary 18, 2025 3:15pmFebruary 18, 2025 3:15pm98 mmol/E48-396Loqybxf LevelDece2024 7:28amDece2024 7:28am90 mg/sN51-225Konawcwomyo (%) (Auto)March 07, 2025 6:13am March 07, 2025 6:13am29.4 %20.5-60.0Mean Corpuscular HemoglobinFebruary 18, 2025 3:15pmNov2024 3:15pm32.6 pg25.9-34.0Carbon Dioxide Level February 18, 2025 3:15pmNov2024 3:15pm23.8 mmol/L21.0-32.0 Potassium LevelDece2024 7:28amDecemb2024 7:28am4.0 mmol/L 3.5-5.1Mean Corpuscular HemoglobinDece2024 6:13amDecember 2024 6:13am32.4 pg25.9-34.0Mean Corpuscular Hemoglobin ConcentFebruary 18, 2025 3:15pmNov2024 3:15pm34.7 g/dL29.9-35.2CreatinineFebruary 18, 2025 3:15pmFebruary 18, 2025 3:15pm0.81 mg/dL0.70-1.30Sodium LevelDece2024 7:28amDecember 2024 7:75mj014 mmol/C871-175Gqzu Corpuscular Hemoglobin ConcentMarch 07, 2025 6:13amDecember 2024 6:13am33.7 g/dL29.9-35.2 Mean Corpuscular VolumeFebruary 18, 2025 3:15pmFebruary 18, 2025 3:15pm93.9 fL80.0-94.0Estimated GFR ()February 18, 2025 3:15pmFebruary 18, 2025 3:15pm>60>=60 mL/min/1.73m 2Mean Corpuscular VolumeMarch 07, 2025 6:13amDece2024 6:13am96.3 fLAbove high fbamcn51.0-94.0Monocytes # (Auto)February 18, 2025 3:15pmFebruary 18, 2025 3:15pm1.0 10 3/uLAbove high normal0.3-0.8Estimated GFR (Non- AmericanNov2024 3:15pm February 18, 2025 3:15pm>60>=60 mL/min/1.73m 2Monocytes # (Auto)March 07, 2025 6:13amDece2024 6:13am1.2 10 3/uLAbove high normal0.3-0.8 Monocytes (%) (Auto)February 18, 2025 3:15pmFebruary 18, 2025 3:15pm12.7 % Above high normal1.7-12.0GlobulinFebruary 18, 2025 3:15pmFebruary 18, 2025 3:15pm3.5 g/dLMonocytes (%) (Auto)March 07, 2025 6:13amDecemb2024 6:13am17.0 %Above high normal1.7-12.0Mean Platelet VolumeFebruary 18, 2025 3:15pmFebruary 18, 2025 3:15pm9.1 fLBelow low normal9.5-13.5Glucose Level February 18, 2025 3:15pmFebruary 18, 2025 3:15pm83 mg/iR37-447Wamw Platelet VolumeDece2024 6:13amDece2024 6:13am9.5 fL9.5-13.5 Neutrophils # (Auto)February 18, 2025 3:15pmFebruary 18, 2025 3:15pm4.6 10 3/uL1.4-6.5Potassium LevelFebruary 18, 2025 3:15pmFebruary 18, 2025 3:15pm 4.1 mmol/L3.5-5.1Neutrophils # (Auto)March 07, 2025 6:13amDece2024 6:13am3.1 10 3/uL1.4-6.5Neutrophils (%) (Auto)February 18, 2025 3:15pm February 18, 2025 3:15pm57.8 %43.0-75.0Sodium LevelFebruary 18, 2025 3:15pm February 18, 2025 3:39pa999 mmol/LBelow low zibkkf409-403Dadegyrktjo (%) (Auto)March 07, 2025 6:13amDece2024 6:13am44.4 %43.0-75.0 Platelet CountFebruary 18, 2025 3:15pmFebruary 18, 2025 3:36kd827 10 3/uL 150-450Total BilirubinFebruary 18, 2025 3:15pmFebruary 18, 2025 3:15pm0.3 mg/dL0.2-1.0Platelet CountDece2024 6:13amDecember 2024 6:13am 318 10 3/lL974-507Jjj Blood CountNov2024 3:15pmFebruary 18, 2025 3:15pm3.93 10 6/uLBelow low normal4.70-6.10Total ProteinFebruary 18, 2025 3:15pmFebruary 18, 2025 3:15pm7.5 g/dL6.4-8.2Red Blood CountDece2024 6:13amDece2024 6:13am4.07 10 6/uLBelow low normal4.70-6.10Red Cell Distribution WidthFebruary 18, 2025 3:15pmFebruary 18, 2025 3:15pm11.9 %11.0-15.0Red Cell Distribution WidthDece2024 6:13amDeceer 2024 6:13am11.9 %11.0-15.0Corrected White Blood CountFebruary 18, 2025 3:15pm February 18, 2025 3:15pm8.0 10 3/uL4.0-11.0Corrected White Blood CountDece2024 6:13amDece2024 6:13am7.1 10 3/uL4.0-11.0 Diagnostic Imaging Reports Author Doc Ramires [facility] CenterAuthoredNov2024 5:48pmReportDictated Date/TimeDictated ByStatusRadiology ReportNov2024 5:48pmDoc Ramires II [facility] [place] [address] CT Scan Report Signed Patient: Cristhian العلي MR#: [id number] : 1945 Acct:[id number] Age/Sex: 79 / M ADM Date: 5 Loc: CT Room: Type: [facility] CLI Attending Dr: Jeff Grimaldo MD Copies to: [...] Ramires M.D. 01/31/2025 5:52 PM Dictation Location: [place] [address] Transcribed By: [facility] 01/31/25 175 Dictated By: Doc Ramires II, MD 01/31/25 1748 Signed By: <Electronically signed by Doc Raimres II, MD in OV> 01/31/25 175 Vital Signs Vital Reading Result Reference Range Collection Date/Time Height 71 [in_i] January 31, 2025 9:35ycHbashk93.79 kgNov2024 9:19amHeart Rate80 /mqq64-474KgqfygvoJanuary 31, 2025 9:19amRespiratory rate12 /ljt24-68EbjsanbaJanuary 31, 2025 9:19amBP Fglbhhyd944 mm[Hg]100-140Nov2024 9:19amBP Cnprioamy13 mm[Hg]60-100January 31, 2025 9:19amBMI (Body Mass Index)23.9 kg/b2DsuutdesJanuary 31, 2025 9:26puOcbxab55 [in_i]February 11, 2025 8:83ddEnwsse79.56 kgNov2024 8:41amBMI (Body Mass Index)23.8 kg/z5XnkxjdilFebruary 11, 2025 8:41amHeight 71 [in_i]February 20, 2025 2:05cgGaibqn47.13 kgNov2024 2:57pmHeart Rate93 /jss20-976IdevaweeFebruary 20, 2025 2:57pmRespiratory rate12 /ejr87-07OnyihwlkFebruary 20, 2025 2:57pmBP Pbkyktmd836 mm[Hg]100-140February 20, 2025 2:57pmBP Lokinhtor04 mm[Hg]60-100February 20, 2025 2:57pmBMI (Body Mass Index)24.0 kg/n5BwrfqgveFebruary 20, 2025 2:57pm Advance Directives Advance Directive Response Recorded Date/ Time Advance Directives No November 12, 2020 7:28am Insurance Providers Guarantor Cristhian العلي Address [address] [facility] [address]Hcrtlsr Info.Home Phone: Coverage Status Update:2025 Payer Group Member ID Coverage Type Subscriber Relationship to Subscriber Effective Date Expiration Date [employer] [address] [address] [facility] [address] Work Phone: Id: [id number] W العلي Id: [id number] [address] [facility] [address] Home Phone: Email: [email or web address] Id: [id number] W العلي Id: [id number] [address] [facility] [address] Home Phone: Email: [email or web address] E العلي Id: [id number] [address] [facility] [address] Home Phone: Email: [email or web address] E العلي Id: [id number] [address] [facility] [address] Home Phone: Email: [email or web address] Encounter Location(s) Arrival/Admit Date Discharge/Departure Date Discharge/Departure Disposition Provider(s) Departed Physician/ Provider Office Visit -[facility] January 22, 2025 10:59am January 22, 2025 11:49am Discharged to home care or self care (routine discharge) Jeff Grimaldo MD Departed Physician/ Provider Office Visit -[facility] January 31, 2025 9:02am January 31, 2025 9:54am Discharged to home care or self care (routine discharge) Shay Pineda DO Departed Clinical -CT Scan [facility] January 31, 2025 4:01pm January 31, 2025 4:02pm Discharged to home care or self care (routine discharge) Jeff Grimaldo MD Departed Physician/ Provider Office Visit -[facility] February 11, 2025 7:47am February 11, 2025 8:45am Discharged to home care or self care (routine discharge) Eloy Swan DO Non-patient / Non-visit -[facility] N ovember 2024 3:15pm THOM Giraldoeparted Physician/Provider [facility] 2024 3:28pmDischarged to home care or self care (routine discharge)Christophe Giraldo-patient / [facility] 7:35amBenjaChristophe Smith- patient / [employer] [employer] CoDecember 2024 6:13amOutside ProviderDeparted Physician/Provider Office Visit-[facility] OutPt March 07, 2025 7:49amDecember 2024 10:12amDischarged to home care or self care (routine discharge)Eloy Swan DO Recent Diagnosis Onset Date Admit Date Primary osteoarthritis, right shoulder Unknown January 22, [...] January 9:02am Tubular adenoma of colon Unknown r 2024 9:02am Primary osteoarthritis, right shoulder Unknown February 11, 2025 7:47am Right shoulder tendonitis Unknown Novemb er 2024 7:47am Tear of right supraspinatus tendon Unknown February 11, 2025 7:47am Alcohol use Unknown February 20, 2 025 2:50pm Hypercholesterolemia Unknown February 202024 2:50pm Hyponatremia Unknown February 20, 2 025 2:50pm Mucopurulent chronic bronchitis Unknown February 20, 2025 2:50pm Nicotine addiction Unknown January 2:50pm Primary hypertension Unknown February 202024 2:50pm Primary osteoarthritis, right shoulder Unknown February 20, 2025 2:50pm Tear of right supraspinatus tendon Unknown February 20, 2025 2:50pm Preop exam for internal medicine Unknown February 20, 2025 2:50pm Assessments Diagnosis Onset Date Resolution Status Admit Date Primary osteoarthritis, right shoulder acuteOctober 2024 10:59amRight shoulder tendonitisacuteOctober 2024 10:59amTear of right supraspinatus tendonacuteOctober 2024 10:59am 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acuteNov2024 9:02am HypercholesterolemiaacuteNovember 2024 9:02amLung nodule, multipleacute January 31, 2025 9:02amMucopurulent chronic bronchitisacuteNov2024 9:02amNicotine addictionacuteNovember 2024 9:02amPrimary hypertensionacute January 31, 2025 9:02amTubular adenoma of colonacuteNov2024 9:02am Primary osteoarthritis, right shoulderacuteNovember 2024 7:47amRight shoulder tendonitisacuteNovember 2024 7:47amTear of right supraspinatus tendonacuteNovember 2024 7:47amAlcohol useacuteNovember 2024 2:50pm HypercholesterolemiaacuteNovember 2024 2:50pmHyponatremiaacuteNovember 2024 2:50pmMucopurulent chronic bronchitisacuteNovember 2024 2:50pm Nicotine addictionacuteNovember 2024 2:50pmPrimary hypertensionacute February 20, 2025 2:50pmPrimary osteoarthritis, right shoulderacuteNovember 2024 2:50pmTear of right supraspinatus tendonacuteNovember 2024 2:50pmPreop exam for internal medicinenoneactiveNov2024 2:50pm Plan of Treatment Author Shay Pineda [facility] 2024 10:00amI have instructed this patient to [...] chest for lung cancer screening. - began ppd - counseled on smoking cessation Serial LDCT completed: No suspicious nodules: 12/2021, 12/2022, 01/2024 Due for repeat LDCT, will send order to [facility] I have instructed this patient on a [...] 08/2021 (repeat 5 years) Author Eloy Swan [facility] 2024 8:55amHe continues to have pain in [...] CT scan of the operative shoulder with Evaner protocol has been obtained for preoperative. Procedure: right reverse shoulder arthroplasty Antibiotics: Ancef, doxy 100mg BID x 7 days DVT ppx: Ambulation Same Day Surgery: Yes Bed: Beachchair Instruments needed: Tornier reverse shoulder arthroplasty Author Shay Pineda [facility] 2024 6:07pmInstructed to stop smoking several weeks prior to [...] 7 days prior to surgery Stable, continue Lotrel, Bystolic and Clonidine w/o interruption Failed conservative treatment, scheduled for right reverse total shoulder arthroplasty s/p right shoulder arthroscopic repair - 2020 Instructed to discontinue daily alcohol consumption for several weeks prior to surgery Hx of SIADH and excessive alcohol consumption, triggering hyponatremia. He was instructed to restrict fluid to 48oz daily, salt tabs daily and stop alcohol consumption completely. His f/u BMP revealed normal Na level. Author Ken Adam [facility] CenterAuthoredOctober 2024 10:51amImages and pain etiology were discussed [...]
[2025-03-17 03:12] VITALS: BP 140/52; PULSE 59; O2SAT 97; BMI 25.1
--- OUTSIDE RECORDS SUMMARY | 2025-03-17 03:26 | XMS_ITS | Clinical Summary ---
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 Name Role Phone Shay Pineda Primary Care Provider [phone] Allergies Active AllergyReactionsCriticalityNoted VadbPgbbssmbWzhxiamsxhmm86/29/2024 Other Reaction(s): UNK Medications MedicationSigDispense QuantityRefillsLast FilledStart [...] A DAY MEN 50 PLUS PO) 1 yzljpt7911/07/2023ctive milk thistle 175 MG tablet Take 175 mg by mouth DailyActive Echinacea 650 MG capsule Take by mouthActive Cyanocobalamin (Vitamin B 12) 100 MCG lozenge Take by mouthActive ipratropium (Atrovent) 0.06 % nasal spray Indications:Chronic vasomotor rhinitisAdminister 2 sprays into each nostril in the morning and 2 sprays in the evening and 2 sprays before bedtime. 45 mL 311/06/2024Active Active Problems ProblemNoted DateDiagnosed HujpNziizljas53/06/2024Barrett's esophagus without kuljujgue09/06/2024enign prostatic hyperplasia with lower urinary tract sbesclmx08/06/2024Chronic vasomotor ytfsabnl96/06/3442Sidagj05/13/2022 Family History RelationNameStatusCommentsFatherDeceasedMotherDeceased Social History Tobacco UseTypesPacks/DayYears UsedDateSmoking Tobacco: Every DayCigarettes Smokeless Tobacco: Never Tobacco Cessation:Ready to Q uit: Not Asked; Counseling Given: Yes Alcohol UseStandard Drinks/WeekCommentsYes1 (1 standard drink = 0.6 oz pure alcohol)Sex and Gender InformationValueDate RecordedSex Assigned at BirthNot on fileLegal SwfScka90/29/2024 1:51 PM EDTGender IdentityNot on fileSexual OrientationNot on file Last Filed Vital Signs Vital SignReadingTime TakenCommentsBlood Catgoybm750/80104/02/2023 10:47 AM EST Pulse--Temperature--Respiratory Stad773109/07/2024 2:12 PM EDTOxygen Saturation-- Inhaled Oxygen Concentration--Fotvjx42.1 kg (170 lb)09/07/2024 2:12 PM EDTHeight 180.3 cm (5' 11 )09/07/2024 2:12 PM EDTBody Mass Index23.71009/07/2024 2:12 PM EDT Plan of Treatment Not on file Insurance Care Teams Team MemberRelationshipSpecialtyStart DateEnd Date Shay Pineda DO [address] [place] [address] PCP - GeneralInternal Xmsekrle88/6/24
--- NOTE | 2025-03-17 03:27 | ED.EXTPRO1 ---
HPI - Extremity Problem General Chief complaint: Extremity Problem, Nontraumatic Stated complaint: LOWER EXTREMITY PAIN/SWELLING POST OP Time Seen by Provider: 03/17/25 03:24 Source: patient Mode of arrival: walk-in History of Present Illness HPI Narrative: recent right shoulder surgery. Now presents complaining of swelling of bilat lower extremities. He has been sleeping in a chair since surgery and not keeping his legs elevated. No dyspnea or chest pain Related Data Home Medications ?Medication ?Instructions ?Recorded ?Confirmed amlodipine 5 mg-benazepril 40 mg 1 cap PO DAILY 02/18/25 03/17/25 capsule ascorbic acid (vitamin C) 500 mg 500 mg PO DAILY 02/18/25 03/17/25 capsule calcium 315 mg (as 1 tab PO DAILY 02/18/25 03/17/25 citrate)-vitamin D3 6.25 mcg (250 unit) tablet (Citracal + Vitamin D Maximum) cholecalciferol (vitamin D3) 25 1,000 unit PO DAILY 02/18/25 03/17/25 mcg (1,000 unit) capsule coffee extract 100 mg-phosphatidyl 1 cap PO DAILY 02/18/25 03/17/25 serine 100 mg capsule (Neuriva Original) echinacea 400 mg capsule 400 mg PO DAILY 02/18/25 03/17/25 geriatric multivitamin-min 1 tab PO DAILY 02/18/25 03/17/25 kqratemeesy-foyoaenax-dga C-Mn 500 1 cap PO DAILY 02/18/25 03/17/25 mg-400 mg capsule (Glucosamine Chondroitin Maximum Strength) milk thistle 175 mg capsule 175 mg PO DAILY 02/18/25 03/17/25 potassium 99 mg tablet 99 mg PO DAILY 02/18/25 03/17/25 pyridoxine (vitamin B6) 100 mg 100 mg PO DAILY 02/18/25 03/17/25 tablet turmeric 400 mg capsule 400 mg PO DAILY 02/18/25 03/17/25 vit C 250 mg-vit E 90 mg-zinc 40 1 tab PO DAILY 02/18/25 03/17/25 mg-copper 1 gu-ngwaay-jhusdu capsule (PreserVision AREDS-2) vitamin B complex 1 tab PO DAILY 02/18/25 03/17/25 acetaminophen 500 mg tablet 500 mg PO Q6H PRN pain 03/17/25 03/17/25 clonidine HCl 0.1 mg tablet 0.1 mg PO BID 03/17/25 03/17/25 docusate sodium 100 mg capsule 100 mg PO DAILY PRN constipation 03/17/25 03/17/25 meloxicam 15 mg tablet 15 mg PO DAILY 03/17/25 03/17/25 nebivolol 5 mg tablet 5 mg PO DAILY 03/17/25 03/17/25 oxycodone 5 mg tablet 5 mg PO Q6H PRN pain 03/17/25 03/17/25 Allergies Allergy/AdvReac Type Severity Reaction Status Date / Time ezetimibe Allergy muscle Verified 03/17/25 03:12 aches Iodinated Contrast Media Allergy homicidal Verified 03/17/25 03:12 Review of Systems ROS Status of ROS 10 or more systems reviewed and unremarkable except as noted in history and below [facility] Medical History (Updated 03/17/25 @ 04:51 by Justin Salinas MD) Bone tumor ?D49.2 - Neoplasm of unspecified behavior of bone, soft tissue, and skin (ICD-10) Snores ?R06.83 - Snoring (ICD-10) Headache ?R51.9 - Headache, unspecified (ICD-10) High cholesterol ?E78.00 - Pure hypercholesterolemia, unspecified (ICD-10) Edentulism ?K08.109 - Complete loss of teeth, unspecified cause, unspecified class (ICD-10) Hypertension ?I10 - Essential (primary) hypertension (ICD-10) Barretts esophagus ?K22.70 - 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 (ICD-10) Lung nodule ?R91.1 - Solitary pulmonary nodule (ICD-10) Chronic bronchitis ?J42 - Unspecified chronic bronchitis (ICD-10) Hyponatremia ?E87.1 - Hypo-osmolality and hyponatremia (ICD-10) Anemia ?D64.9 - Anemia, unspecified (ICD-10) BPH (benign prostatic hyperplasia) ?N40.0 - Benign prostatic hyperplasia without lower urinary tract symptoms (ICD-10) Polyp of colon ?K63.5 - Polyp of colon (ICD-10) PTSD (post-traumatic stress disorder) ?F43.10 - Post-traumatic stress disorder, unspecified (ICD-10) Panic attack ?F41.0 - Panic disorder [episodic paroxysmal anxiety] (ICD-10) 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 - Syndrome of inappropriate secretion of antidiuretic hormone (ICD-10) Hypercholesterolemia ?E78.00 - Pure hypercholesterolemia, unspecified (ICD-10) Nasal turbinate hypertrophy ?J34.3 - Hypertrophy of nasal turbinates (ICD-10) Chronic vasomotor rhinitis ?J30.0 - Vasomotor rhinitis (ICD-10) Rotator cuff tendinitis ?M75.80 - Other shoulder lesions, unspecified shoulder (ICD-10) Osteoarthritis of right shoulder ?M19.011 - Primary osteoarthritis, right shoulder (ICD-10) Right shoulder pain ?M25.511 - Pain in right shoulder (ICD-10) Surgical History (Updated 02/18/25 @ 15:35 by Mayi Pond NP) H/O excision of mass ?Z98.890 - Other specified postprocedural states (ICD-10) History of colonoscopy ?Z98.890 - Other specified postprocedural states (ICD-10) History of esophagogastroduodenoscopy (EGD) ?Z98.890 - Other specified postprocedural states (ICD-10) H/O arthroscopy of shoulder ?Z98.890 - Other specified postprocedural states (ICD-10) Family History (Updated 02/18/25 @ 15:13 by Mayi Pond NP) Other Family history of cancer Hyponatremia Social History (Updated 03/07/25 @ 06:34 by Kita Reddy) Within the past year, how often did you have a drink containing alcohol: 4 or more times a week Within the past year, how many standard drinks containing alcohol did you have on a typical day: 3 or 4 Smoking status: Current every day smoker What tobacco products do you use: cigarettes Packs per day: 1 Years smoked: 40 Smoking pack-years: 40.00 Non-prescribed substance use: denies use Previous occupational history: Retired /[employer]ired [employer] Highest level of school completed/degree received: Associate degree: academic program Little interest or pleasure in doing things: not at all Feeling down, depressed, or hopeless: not at all Exam Constitutional Vital Signs, click to edit/add: Last Vital Signs Pulse 59 L 03/17/25 03:12 Resp 20 03/17/25 03:12 BP 140/52 03/17/25 03:12 Pulse Ox 97 03/17/25 03:12 O2 Del Method Room Air 03/17/25 03:12 Common normals: no apparent distress, average body habitus, oriented x3, no limitations, healthy appearing, alert and well nourished [facility] Common normals: normocephalic and head/scalp atraumatic Eye Common normals: EOMs intact bilaterally and conjunctivae normal Respiratory Common normals: normal respiratory effort, no retractions, no use of accessory muscles and clear to auscultation bilaterally Cardio Common normals: regular rate, regular rhythm, S1 normal heart sound and S2 normal heart sound GI Common normals: Normal to inspection, nondistended, normoactive bowel sounds present, soft to palpation and non-tender Extremity Other: 1+ edema bilat lower ext Neuro Common normals: oriented x3, CN's II-XII intact bilaterally, moves all extremities and no focal motor deficits Sensorium/orientation: awake Course Vital Signs Vital signs: Vital Signs Pulse Rate 59 L 03/17/25 03:12 Respiratory Rate 20 03/17/25 03:12 Blood Pressure 140/52 03/17/25 03:12 Pulse Oximetry 97 03/17/25 03:12 Oxygen Delivery Method Room Air 03/17/25 03:12 Pulse Rate 59 L 03/17/25 03:12 Respiratory Rate 20 03/17/25 03:12 Blood Pressure 140/52 03/17/25 03:12 Pulse Oximetry 97 03/17/25 03:12 Oxygen Delivery Method Room Air 03/17/25 03:12 MDM - Extremity (Nontraumatic) MDM Narrative Medical decision making narrative: recent surgery right shoulder. Has been sleeping in a chair with his feet down. Now has swelling bilat lower ext. Neg dyspnea and exam neg except for swelling of his legs. CBC, BMP WNL. patient given dose of lasix 20mg po. Advised to keep his legs elevated at home and to follow up with his doctor in the next few days for recheck Lab Data Labs: Lab Results 03/17/25 Range/Units 03:35 WBC 11.1 H (4.0-11.0) 10^3/uL RBC 3.39 L (4.70-6.10) 10^6/uL Hgb 11.0 L (14.0-18.0) g/dL Hct 32.7 L (42.0-54.0) % MCV 96.5 H (80.0-94.0) fL MCH 32.4 (25.9-34.0) pg MCHC 33.6 (29.9-35.2) g/dL RDW 11.5 (11.0-15.0) % Plt Count 363 (150-450) 10^3/uL MPV 9.7 (9.5-13.5) fL Neut % (Auto) 66.1 (43.0-75.0) % Lymph % (Auto) 15.9 L (20.5-60.0) % [place] % (Auto) 12.8 H (1.7-12.0) % Eos % (Auto) 4.4 (0.9-7.0) % Baso % (Auto) 0.5 (0.2-2.0) % Neut # (Auto) 7.3 H (1.4-6.5) 10^3/uL Lymph # (Auto) 1.8 (1.2-3.8) 10^3/uL [place] # (Auto) 1.4 H (0.3-0.8) 10^3/uL Eos # (Auto) 0.5 (0.0-0.7) 10^3/uL Baso # (Auto) 0.1 (0.0-0.1) 10^3/uL Abs Immat Gran (auto) 0.03 (0.00-0.03) 10^3/uL Imm/Tot Granulo (auto) 0.3 (0.0-0.5) % Sodium 135 L (136-145) mmol/L Potassium 5.0 (3.5-5.1) mmol/L Chloride 103 (98-107) mmol/L Carbon Dioxide 25.9 (21.0-32.0) mmol/L Anion Gap 11.1 BUN 24.0 H (7.0-18.0) mg/dL Creatinine 1.09 (0.70-1.30) mg/dL Est GFR ( Amer) >60 (>=60 mL/min/1.73m^2) Est GFR (Non-Af Amer) >60 (>=60 mL/min/1.73m^2) BUN/Creatinine Ratio 22.0 Glucose 95 (74-106) mg/dL Calcium 9.3 (8.5-10.1) mg/dL Total Bilirubin 0.3 (0.2-1.0) mg/dL AST 30 (15-37) U/L ALT 50 (16-63) U/L Alkaline Phosphatase 105 (46-116) U/L Troponin I High Sens 46.9 (4.0-76.1) pg/mL Total Protein 7.2 (6.4-8.2) g/dL Albumin 3.5 (3.4-5.0) g/dL Globulin 3.7 g/dL Albumin/Globulin Ratio 0.9 Discharge Plan Discharge Chief Complaint: Extremity Problem, Nontraumatic Clinical Impression: Lower extremity edema Patient Disposition: Home, Self-Care Prescriptions / Home Meds: No Action acetaminophen 500 mg tablet 500 mg PO Q6H PRN (Reason: pain) clonidine HCl 0.1 mg tablet 0.1 mg PO BID docusate sodium 100 mg capsule 100 mg PO DAILY PRN (Reason: constipation) meloxicam 15 mg tablet 15 mg PO DAILY nebivolol 5 mg tablet 5 mg PO DAILY oxycodone 5 mg tablet 5 mg PO Q6H PRN (Reason: pain) amlodipine-benazepril 5-40 mg capsule 1 cap PO DAILY geriatric multivitamin-min Tablet 1 tab PO DAILY pyridoxine (vitamin B6) 100 mg tablet 100 mg PO DAILY vitamin B complex Tablet 1 tab PO DAILY ascorbic acid (vitamin C) 500 mg capsule 500 mg PO DAILY cholecalciferol (vitamin D3) 25 mcg (1,000 unit) capsule 1,000 unit PO DAILY calcium citrate-vitamin D3 [Citracal + D Maximum] 315 mg-6.25 mcg (250 unit) tablet 1 tab PO DAILY potassium 99 mg tablet 99 mg PO DAILY echinacea 400 mg capsule 400 mg PO DAILY milk thistle 175 mg capsule 175 mg PO DAILY Rx Instructions: give with meal/snack turmeric 400 mg capsule 400 mg PO DAILY vwfssxhdhrz-fuahulqzm-vch C-Mn [Glucosamine Chondroitin MaxStr] 500-400 mg capsule 1 cap PO DAILY Neuriva Original 100-100 mg capsule 1 cap PO DAILY PreserVision AREDS-2 250-90-40-1 mg capsule 1 tab PO DAILY Print Language: Estonian Instructions: Leg Edema (ED) Additional Instructions: follow up with Dr Pineda in the next 2-3 days for recheck. Keep legs elevated Referrals: Shay Pineda DO [Primary Care Provider, Internal Medicine] - 1 week Discharge Date/Time: 03/17/25 05:03
[2025-03-17 04:02] LABS: Hematocrit 32.7 % (42.0-54.0); Hemoglobin 11.0 g/dL (14.0-18.0); Immature Granulocytes Abs Auto 0.03 10^3/uL (0.00-0.03); Immature Granulocytes Pct Auto 0.3 % (0.0-0.5); Lymphocytes Absolute Auto 1.8 10^3/uL (1.2-3.8); Mean Corpuscular HGB Conc 33.6 g/dL (29.9-35.2); Mean Corpuscular Hemoglobin 32.4 pg (25.9-34.0); Mean Corpuscular Volume 96.5 fL (80.0-94.0); Platelet Count 363 10^3/uL (150-450); Red Blood Count 3.39 10^6/uL (4.70-6.10); White Blood Count 11.1 10^3/uL (4.0-11.0)
[2025-03-17 04:12] LABS: Anion Gap 11.1
[2025-03-17 04:15] LABS: Alanine Aminotransferase 50 U/L (16-63); Albumin Globulin Ratio 0.9; Albumin Level 3.5 g/dL (3.4-5.0); Alkaline Phosphatase 105 U/L (46-116); Aspartate Amino Transferase 30 U/L (15-37); Blood Urea Nitrogen 24.0 mg/dL (7.0-18.0); Calcium 9.3 mg/dL (8.5-10.1); Carbon Dioxide 25.9 mmol/L (21.0-32.0); Chloride 103 mmol/L (98-107); Estimated GFR (African America >60 (>=60 mL/min/1.73m^2); Estimated GFR (Non-African Ame >60 (>=60 mL/min/1.73m^2); Globulin 3.7 g/dL; Glucose 95 mg/dL (74-106); Potassium 5.0 mmol/L (3.5-5.1); Sodium 135 mmol/L (136-145); Total Protein 7.2 g/dL (6.4-8.2)
[2025-03-17] MEDS: FUROSEMIDE 20 MG TABLET PO (05:00)
== END 2025-03-17 05:03 | disposition home or self-care (01) ==
PROVIDERS: Emergency Provider Internal Medicine; PCP Internal Medicine
DX: R60.0 Localized edema (principal); F17.210 Nicotine dependence, cigarettes, uncomplicated; Z98.890 Other specified postprocedural states
CPT/HCPCS: 36415; 80053; 84484; 85025; 99283; 99284